=== PATIENT | male | born 1965 | race Caucasian/White ===

== ENCOUNTER → 2020-02-17 13:55 | Outpatient (BNVA) | payer MEDICARE, SELFPAY | PROVIDERS: PCP Internal Medicine; Referring Provider Internal Medicine; Visit Provider Internal Medicine Cardiovascular Disease | DX: I25.10 Atherosclerotic heart disease of native coronary artery without angina pectoris (principal); I10 Essential (primary) hypertension; E11.9 Type 2 diabetes mellitus without complications; Z79.899 Other long term (current) drug therapy | CPT/HCPCS: Q3014 ==

== ENCOUNTER 2020-03-01 15:53 | Outpatient (REF) | payer MEDICARE, OTHER, SELFPAY ==
--- NOTE | 2020-03-01 16:01 | XR_ITS ---
EXAMINATION: XR CHEST CLINICAL INFORMATION: Shortness of breath COMPARISON: Chest radiographs 08/30/2019, 01/08/2019 TECHNIQUE: The chest is imaged in 2 frontal views and a lateral view for a total of 3 views. FINDINGS: There is no airspace consolidation or definite groundglass opacity. The costophrenic sulci are clear. The heart is normal in size. The vascularity is normal. There is no pneumothorax or pleural reaction. The hilar and mediastinal contours and bony structures are stable. XR/XR chest 2V IMPRESSION: Unremarkable examination.
== END 2020-03-01 15:54 | disposition home or self-care (01) ==
LOC: HO.HMGCX 15:53
PROVIDERS: PCP Internal Medicine; Visit Provider Nurse Practitioner Family
DX: R06.02 Shortness of breath (principal)
CPT/HCPCS: 71046

== ENCOUNTER 2020-03-02 13:45 | Outpatient (REF) | payer MEDICARE, OTHER, SELFPAY ==
[2020-03-02 16:25] LABS: MANUAL DIFF FLAG NO
[2020-03-02 16:29] LABS: Basophils Absolute Auto 0.1 X10*3/uL (0.0-0.2); Eosinophils Absolute Auto 0.2 X10*3/uL (0.0-0.4); Eosinophils Percent Auto 2.1 % (0-4); Hematocrit 47.9 % (42-52); Hemoglobin 16.7 g/dl (14.0-18.0); Imm Gran Abs Auto 0.04 X10*3/uL (0.00-0.03); Imm Gran Pct Auto 0.5 % (0.0-0.4); Lymphocytes Absolute Auto 1.6 X10*3/uL (1.2-4.9); Lymphocytes Percent Auto 18.5 % (20-40); Mean Corpuscular HGB Conc 34.9 g/dl (31.0-36.0); Mean Corpuscular Hemoglobin 35.8 pg (27.0-33.0); Mean Corpuscular Volume 102.6 fL (80-98); Monocytes Absolute Auto 0.8 X10*3/uL (0.1-1.2); Monocytes Percent Auto 8.7 % (2-11); Neutrophils Percent Auto 69.2 % (45-73); Platelet Count 141 X10*3/uL (160-400); Red Blood Count 4.67 X10*6/uL (4.60-5.80); Red Cell Distribution Width 13.5 % (11.0-16.0); White Blood Count 8.7 X10*3/uL (4.8-10.8)
[2020-03-02 17:11] LABS: Alanine Aminotransferase 42 U/L (0-40); Albumin Level 4.3 g/dL (3.5-5.0); Alkaline Phosphatase 94 U/L (39-117); Anion Gap 18 (12-20); Aspartate Amino Transferase 36 U/L (5-37); Bilirubin Total 0.7 mg/dL (0.0-1.0); Blood Urea Nitrogen 15 mg/dL (9-16); Calcium 8.9 mg/dL (8.4-10.2); Carbon Dioxide 30 mmol/L (22-29); Chloride 90 mmol/L (96-108); Estimated Glomerular Filt Rate > 60; Glucose Random 494 mg/dL (60-115); Potassium 3.8 mmol/l (3.3-5.1); Sodium 134 mmol/L (135-145); Total Protein 7.6 g/dL (6.5-8.0)
== END 2020-03-02 13:46 | disposition home or self-care (01) ==
LOC: HO.HMGCLDS 13:45
PROVIDERS: PCP Nurse Practitioner Family; Visit Provider Nurse Practitioner Family
DX: R06.02 Shortness of breath (principal)
CPT/HCPCS: 36415; 80053; 85025

== ENCOUNTER 2020-03-09 13:16 | Outpatient (REF) | payer MEDICARE, SELFPAY ==
[2020-03-09 13:46] LABS: MANUAL DIFF FLAG NO
[2020-03-09 13:55] LABS: Basophils Absolute Auto 0.1 X10*3/uL (0.0-0.2); Basophils Percent Auto 0.9 % (0-2); Eosinophils Absolute Auto 0.2 X10*3/uL (0.0-0.4); Eosinophils Percent Auto 3.3 % (0-4); Hematocrit 46.7 % (42-52); Hemoglobin 16.1 g/dl (14.0-18.0); Imm Gran Abs Auto 0.02 X10*3/uL (0.00-0.03); Imm Gran Pct Auto 0.3 % (0.0-0.4); Lymphocytes Absolute Auto 1.5 X10*3/uL (1.2-4.9); Lymphocytes Percent Auto 25.6 % (20-40); Mean Corpuscular HGB Conc 34.5 g/dl (31.0-36.0); Mean Corpuscular Hemoglobin 35.2 pg (27.0-33.0); Mean Platelet Volume 9.9 fL (9.4-12.4); Monocytes Absolute Auto 0.6 X10*3/uL (0.1-1.2); Monocytes Percent Auto 10.6 % (2-11); Neutrophils Absolute Auto 3.5 X10*3/uL (2.0-8.3); Neutrophils Percent Auto 59.3 % (45-73); Platelet Count 128 X10*3/uL (160-400); Red Blood Count 4.58 X10*6/uL (4.60-5.80); Red Cell Distribution Width 13.4 % (11.0-16.0); White Blood Count 5.8 X10*3/uL (4.8-10.8)
[2020-03-09 14:40] LABS: Alanine Aminotransferase 37 U/L (0-40); Alkaline Phosphatase 81 U/L (39-117); Anion Gap 17 (12-20); Aspartate Amino Transferase 32 U/L (5-37); Bilirubin Total 0.8 mg/dL (0.0-1.0); Blood Urea Nitrogen 11 mg/dL (9-16); Calcium 8.6 mg/dL (8.4-10.2); Carbon Dioxide 29 mmol/L (22-29); Chloride 92 mmol/L (96-108); Estimated Glomerular Filt Rate > 60; Potassium 3.9 mmol/l (3.3-5.1); Sodium 134 mmol/L (135-145)
[2020-03-09 14:41] LABS: Total Protein 6.9 g/dL (6.5-8.0)
[2020-03-09 14:43] LABS: Glucose Random 373 mg/dL (60-115)
== END 2020-03-09 13:17 | disposition home or self-care (01) ==
LOC: HO.HMGCLDS 13:16
PROVIDERS: PCP Internal Medicine; Visit Provider Nurse Practitioner Family
DX: D69.6 Thrombocytopenia, unspecified (principal)
CPT/HCPCS: 36415; 80053; 85025

== ENCOUNTER 2020-03-18 14:36 | Emergency (ER) | payer MEDICARE, SELFPAY ==
--- NOTE | 2020-03-18 14:53 | ED.GENADULT ---
HPI - General Adult General Chief complaint: General Medical Stated complaint: covid testing Time Seen by Provider: 03/18/20 14:53 Source: patient Mode of arrival: ambulatory Limitations: no limitations History of Present Illness HPI narrative: 54-year-old male with below) physical history presenting seeking COVID-19 test. States he is asymptomatic has been exposed to daughter who tested positive. States because his comorbidities would like a COVID test again denies any other symptoms. Onset (ago): day(s) (2 days ago ) Treatments prior to arrival: none Related Data Home Medications Medication Instructions Recorded Confirmed atorvastatin 40 mg tablet 40 mg PO DAILY 02/17/20 02/17/20 carbamazepine 200 mg tablet 200 mg PO BID 02/17/20 02/17/20 furosemide 40 mg tablet 40 mg PO DAILY 02/17/20 02/17/20 oxycodone 5 mg tablet mg PO 02/17/20 02/17/20 pregabalin 300 mg capsule 300 mg PO BID 02/17/20 02/17/20 insulin glargine 100 unit/mL (3 24 unit SUBCUT QPM ml 03/02/20 mL) subcutaneous pen tizanidine 4 mg tablet 4 mg PO TID PRN 03/06/20 Previous Rx's Medication Instructions Recorded blood sugar diagnostic #10 ea 01/10/20 blood-glucose meter #1 ea 01/10/20 lancets #100 ea 01/10/20 lancets 30 gauge #100 ea 01/12/20 lisinopril 5 mg tablet 5 mg PO DAILY 90 Days #90 tab 01/26/20 albuterol sulfate 2.5 mg INHALATION Q6H PRN 30 Days 02/14/20 #180 ml azithromycin 250 mg tablet See Rx Instructions PO DAILY 5 02/14/20 Days #6 tab metoprolol succinate 25 mg 25 mg PO DAILY #30 tab 03/01/20 tablet,extended release 24 hr tizanidine 4 mg tablet 4 mg PO TID PRN 30 Days #90 tab 03/06/20 Allergies Allergy/AdvReac Type Severity Reaction Status Date / Time cyclobenzaprine Allergy Unknown RASH Verified 03/18/20 14:57 [From FLEXERIL] penicillin V Allergy Unknown anaphylaxis Verified 03/18/20 14:57 Review of Systems Review of Systems: Constitutional: No Weight loss, No Fever, No Chills, No Night Sweats, No Fatigue, No Malaise ENT/Mouth: No Hearing loss, No Ear Pain, No Nasal Congestion, No Sinus Pain, No Hoarseness, No sore throat, No Rhinorrhea, No Swallowing Difficulty Eyes: No Eye Pain, No Swelling, No Redness, No Foreign Body, No Discharge, No Vision Changes Cardiovascular: No Chest Pain, No SOB, No Dyspnea on Exertion, No Orthopnea, No Edema, No Palpitations Respiratory: No Cough, No Sputum, No Wheezing, No Smoke Exposure, No Dyspnea Gastrointestinal: No Nausea, No Vomiting, No Diarrhea, No Constipation, No abdominal Pain Genitourinary: No Dysuria, No Urinary Frequency, No Hematuria, No Urinary Incontinence, No Urgency, No Flank Pain, No Urinary Flow Changes Musculoskeletal: No joint pain, No Myalgias, No Joint Swelling Skin: No Skin Lesions, No rash Neuro: No Weakness, No Numbness, No Paresthesias, No Loss of Consciousness, No Dizziness, No Headache Psych: No Social Issues Heme/Lymph: No Bruising, No Bleeding,No Lymphadenopathy Endocrine: No Polyuria, No Polydipsia, No Temperature Intolerance Yes all other systems are reviewed and are negative [facility] Past Medical History Medical History CAD (coronary artery disease) HTN (hypertension) Shortness of breath Uncontrolled diabetes mellitus Surgical History History of back surgery Hx of cardiac cath Hx of hernia repair Family History Family History Father CVD (cardiovascular disease) Cancer Mother No problems noted. Social History Social History Smoking Status: Current every day smoker Advance Directives: No Advance Directives Information Provided: No Physical Exam Vital Signs: Vital Signs: Last Vital Signs Temp 98.9 F 03/18/20 14:56 Pulse 100 03/18/20 14:56 Resp 16 03/18/20 14:56 BP 135/88 03/18/20 14:56 Pulse Ox 94 03/18/20 14:56 Body Mass Index 38.2 Reviewed Const: General: cooperative and healthy appearing; No acute distress or intoxicated appearing Nutritional Appearance: average body habitus Orientation/consciousness: patient oriented x3 HENMT: Head: Yes normal to inspection Ears: hearing grossly normal bilaterally Eyes: General: appearance normal, both eyes and all related structures Visual Hendrickson: normal visual hendrickson by confrontation Neck: Neck: Yes normal visual inspection and No tender Thyroid: Thyroid normal Chest: Chest palpation & inspection: normal inspection of the chest Resp: Effort & Inspection: normal respiratory effort Auscultation: clear to auscultation bilaterally Cardio: Jugular venous distension: no JVD Rhythm: regular rhythm Heart sounds: S1 normal heart sound present and S2 normal heart sound present : General: Yes no CVA tenderness Back/Spine/Pelvis: Back: no CVA tenderness Skin: General skin exam: no rashes or lesions noted Neuro: General: patient oriented x3 Extrem: General: Yes normal to inspection Discharge Plan Discharge Clinical Impression: Encounter for laboratory testing for COVID-19 virus Patient Disposition: Home, Self-Care Instructions: Normal Exam (ED) Additional Instructions: Follow CDC/state guidelines as provided Your COVID test was done today May take 2-3 days to result Return if any concerns or worsening symptoms Thank you Prescriptions: No Action (DME) OneTouch Ultra Blue Test Strip Strip See Rx Instructions .ROUTE .MEDSUPPLY Qty: 10 RF: 0 (DME) blood-glucose meter [OneTouch Ultra2 Meter] Misc See Rx Instructions .ROUTE .MEDSUPPLY Qty: 1 RF: 0 (DME) lancets [OneTouch UltraSoft Lancets] Misc See Rx Instructions .ROUTE .MEDSUPPLY Qty: 100 RF: 0 (DME) lancets [OneTouch Delica Lancets] 30 gauge misc See Rx Instructions .ROUTE .MEDSUPPLY Qty: 100 RF: 0 lisinopril 5 mg tablet 5 mg PO DAILY 90 Days Qty: 90 RF: 1 albuterol sulfate 2.5 mg /3 mL (0.083 %) solution for nebulization 2.5 mg inhalation Q6H PRN (Reason: shortness of breath or wheezing) 30 Days Qty: 180 RF: 3 azithromycin 250 mg tablet See Rx Instructions PO DAILY 5 Days Qty: 6 RF: 0 metoprolol succinate 25 mg tablet extended release 24 hr 25 mg PO DAILY Qty: 30 RF: 5 Lantus Solostar U-100 Insulin 100 unit/mL (3 mL) insulin pen 24 unit subcut QPM RF: 0 tizanidine 4 mg tablet 4 mg PO TID PRNRF: 0 tizanidine 4 mg tablet 4 mg PO TID PRN (Reason: muscle spasticity) 30 Days Qty: 90 RF: 0 oxycodone 5 mg tablet PO RF: 0 carbamazepine 200 mg tablet 200 mg PO BID RF: 0 pregabalin 300 mg capsule 300 mg PO BID RF: 0 furosemide 40 mg tablet 40 mg PO DAILY RF: 0 atorvastatin 40 mg tablet 40 mg PO DAILY RF: 0 Referrals: Lauri Gonzalez, [employer] [Primary Care Provider] - 1 week
[2020-03-18 14:56] VITALS: BP 135/88; PULSE 100; RESP 16; TEMP 37.2; O2SAT 94; BMI 38.2
== END 2020-03-18 15:05 | disposition home or self-care (01) ==
PROVIDERS: Nurse Practitioner Primary Care; Emergency Provider Emergency Medicine; PCP Nurse Practitioner Family
DX: Z20.828 Contact with and (suspected) exposure to other viral communicable diseases (principal); I10 Essential (primary) hypertension; E11.9 Type 2 diabetes mellitus without complications
CPT/HCPCS: 99283; U0003

== ENCOUNTER 2020-04-03 16:42 | Outpatient (REF) | payer MEDICARE, SELFPAY ==
--- NOTE | 2020-04-03 16:45 | XR_ITS ---
EXAMINATION: XR CHEST CLINICAL INFORMATION: R06.02 - Shortness of breath COMPARISON: Chest radiographs 03/01/2020, 08/30/2019 TECHNIQUE: 2 views of the chest were obtained. FINDINGS: The lungs are clear. There is no airspace consolidation or groundglass opacity. The costophrenic sulci are clear. The vascularity is normal. The heart is normal in size. The costophrenic sulci are clear. Smooth extrapleural areolar tissue lower left lateral chest is stable. The hilar and mediastinal contours and bony structures are similar to prior studies. XR/XR chest 2V IMPRESSION: Unremarkable examination.
== END 2020-04-03 16:43 | disposition home or self-care (01) ==
LOC: HO.HMGCX 16:42
PROVIDERS: Visit Provider Nurse Practitioner Family
DX: R06.02 Shortness of breath (principal)
CPT/HCPCS: 71046

== ENCOUNTER 2020-04-05 11:09 | Outpatient (REF) | payer MEDICARE, SELFPAY | END 2020-04-05 11:10 | disposition home or self-care (01) | LOC: HO.LAB 11:09 | PROVIDERS: Visit Provider Nurse Practitioner Family | DX: Z20.822 Contact with and (suspected) exposure to COVID-19 (principal); J18.9 Pneumonia, unspecified organism; D69.6 Thrombocytopenia, unspecified | CPT/HCPCS: 36415; U0003 ==

== ENCOUNTER 2020-06-26 09:20 | Outpatient (REF) | payer MEDICARE, SELFPAY ==
--- NOTE | ~2020-06-26 | XR_ITS ---
EXAMINATION: XR CHEST CLINICAL INFORMATION: Cough COMPARISON: Previous chest x-ray 04/03/2020 TECHNIQUE: 2 views of the chest were obtained. FINDINGS: The cardiac and mediastinal contours are stable. The lungs are clear. There is no pleural effusion or pneumothorax. There are degenerative changes of the spine. XR/XR chest 2V IMPRESSION: No evidence for acute disease in the chest.
== END 2020-06-26 09:21 | disposition home or self-care (01) ==
LOC: HO.HMGCX 09:20
PROVIDERS: PCP Nurse Practitioner Family; Visit Provider Hospitalist
DX: R05 Cough (principal)
CPT/HCPCS: 71046

== ENCOUNTER 2020-07-10 15:17 | Outpatient (REF) | payer MEDICARE, SELFPAY ==
--- NOTE | ~2020-07-10 | XR_ITS ---
EXAMINATION: RIGHT ANKLE AND FOOT PAIN CLINICAL INFORMATION: Trauma COMPARISON: None TECHNIQUE: 3 views of the right foot and 2 views of the right ankle FINDINGS: There is a displaced, angulated, and comminuted fracture involving the distal third of the right second metatarsal with lateral displacement of distal fracture fragment and displacement of approximately 6 mm. There is also noted to be a nondisplaced fracture involving the base of the third proximal phalanx which appears to be intra-articular.. There is associated soft tissue swelling. No radiopaque foreign bodies. Views of the right ankle do not demonstrate evidence of acute fracture or dislocation. Soft tissue swelling is seen about the ankle and foot. Ankle mortise intact. No medial joint space widening. XR/XR ankle RT min 3V IMPRESSION: Displaced, angulated, and comminuted fractures of the second metatarsal. Nondisplaced fracture involving the base of the third proximal phalanx which appears to be intra-articular. Soft tissue swelling without acute fracture of the right ankle.
--- NOTE | ~2020-07-10 | XR_ITS ---
EXAMINATION: RIGHT ANKLE AND FOOT PAIN CLINICAL INFORMATION: Trauma COMPARISON: None TECHNIQUE: 3 views of the right foot and 2 views of the right ankle FINDINGS: There is a displaced, angulated, and comminuted fracture involving the distal third of the right second metatarsal with lateral displacement of distal fracture fragment and displacement of approximately 6 mm. There is also noted to be a nondisplaced fracture involving the base of the third proximal phalanx which appears to be intra-articular.. There is associated soft tissue swelling. No radiopaque foreign bodies. Views of the right ankle do not demonstrate evidence of acute fracture or dislocation. Soft tissue swelling is seen about the ankle and foot. Ankle mortise intact. No medial joint space widening. XR/XR foot RT min 3V IMPRESSION: Displaced, angulated, and comminuted fractures of the second metatarsal. Nondisplaced fracture involving the base of the third proximal phalanx which appears to be intra-articular. Soft tissue swelling without acute fracture of the right ankle.
== END 2020-07-10 15:18 | disposition home or self-care (01) ==
LOC: HO.HMGCX 15:17
PROVIDERS: PCP Nurse Practitioner Family; Visit Provider Hospitalist
DX: M25.571 Pain in right ankle and joints of right foot (principal)
CPT/HCPCS: 73610; 73630

== ENCOUNTER 2020-07-25 08:12 | Outpatient (REF) | payer MEDICARE, SELFPAY ==
--- NOTE | ~2020-07-25 | XR_ITS ---
EXAMINATION: XR FOOT, RIGHT CLINICAL INFORMATION: Fracture COMPARISON: Right foot x-rays July 10, 2020 TECHNIQUE: AP, lateral, and oblique views of the right foot. FINDINGS: Similar appearance of displaced comminuted fracture of the distal aspect of the second metatarsal. There is no evidence of callus formation. Similar appearance of nondisplaced fracture involving the base of the proximal third phalanx. No evidence of callus formation. XR/XR foot RT min 3V IMPRESSION: Stable appearance of fractures involving the second metatarsal and proximal third phalanx. No significant interval callus formation appreciated.
== END 2020-07-25 08:13 | disposition home or self-care (01) ==
LOC: HO.HOSX 08:12
PROVIDERS: Visit Provider Physician Assistant
DX: S92.321A Displaced fracture of second metatarsal bone, right foot, initial encounter for closed fracture (principal); E11.40 Type 2 diabetes mellitus with diabetic neuropathy, unspecified; F17.210 Nicotine dependence, cigarettes, uncomplicated; X58.XXXA Exposure to other specified factors, initial encounter; Y93.9 Activity, unspecified; Y92.9 Unspecified place or not applicable; Y99.9 Unspecified external cause status
CPT/HCPCS: 73630; 99202

== ENCOUNTER 2020-08-04 15:34 | Outpatient (REF) | payer MEDICARE, SELFPAY ==
--- NOTE | ~2020-08-04 | XR_ITS ---
EXAMINATION: XR CHEST CLINICAL INFORMATION: Shortness of breath COMPARISON: None TECHNIQUE: 2 views of the chest were obtained. FINDINGS: The lungs are hyperinflated but clear. The heart size and pulmonary vascularity is normal. No gross bony abnormality. XR/XR chest 2V IMPRESSION: Hyperinflated lungs without acute process.
== END 2020-08-04 15:35 | disposition home or self-care (01) ==
LOC: HO.HMGCX 15:34
PROVIDERS: PCP Nurse Practitioner Family; Visit Provider Nurse Practitioner Family
DX: R06.02 Shortness of breath (principal)
CPT/HCPCS: 71046

== ENCOUNTER → 2020-08-14 09:49 | Outpatient (BNVA) | payer MEDICARE, SELFPAY | PROVIDERS: Visit Provider Physician Assistant ==

== ENCOUNTER 2020-08-29 07:36 | Outpatient (REF) | payer MEDICARE, SELFPAY | END 2020-08-29 07:37 | disposition home or self-care (01) | LOC: HO.HOSX 07:36 | PROVIDERS: Visit Provider Physician Assistant | DX: Z13.89 Encounter for screening for other disorder (principal) ==

== ENCOUNTER 2020-09-04 08:00 | Outpatient (REF) | payer MEDICARE, SELFPAY ==
--- NOTE | ~2020-09-04 | XR_ITS ---
EXAMINATION: XR FOOT, RIGHT CLINICAL INFORMATION: Third metatarsal. Follow-up. COMPARISON: Radiographs right foot 07/25/2020, 07/10/2020 TECHNIQUE: AP, lateral, and oblique views of the right foot. FINDINGS: There is comminuted fracture neck 2nd metatarsal with lateral displacement distal fragment. Alignment is similar to prior exam. There is interval callus formation present. Fracture base third toe proximal phalanx is faintly visible. No significant callus formation. Remainder of the bony structures show no acute fracture or destructive process. Cortical cyst again suggested dorsal medial distal phalangeal tuft great toe. XR/XR foot RT min 3V IMPRESSION: Interval callus formation displaced fracture neck second metatarsal. No significant change in alignment. Stable fracture base third toe proximal phalanx.
== END 2020-09-04 08:01 | disposition home or self-care (01) ==
LOC: HO.HOSX 08:00
PROVIDERS: Visit Provider Physician Assistant
DX: S92.121A Displaced fracture of body of right talus, initial encounter for closed fracture (principal); S92.331A Displaced fracture of third metatarsal bone, right foot, initial encounter for closed fracture; S92.301A Fracture of unspecified metatarsal bone(s), right foot, initial encounter for closed fracture; E11.40 Type 2 diabetes mellitus with diabetic neuropathy, unspecified
CPT/HCPCS: 73630; 99212

== ENCOUNTER 2020-11-22 08:55 | Outpatient (REF) | payer MEDICARE, SELFPAY ==
[2020-11-22 11:34] LABS: Glucose Urine UA NEG (NEG); Leukocyte Esterase Urine NEG (NEG); Nitrite Urine NEG (NEG); Urine Blood NEG (NEG); Urine Ketones NEG (NEG); Urine Protein NEG (NEG-TRACE)
[2020-11-22 11:44] LABS: Appearance Urine CLEAR; Color Urine YELLOW
[2020-11-22 11:59] LABS: Alanine Aminotransferase 40 U/L (0-40); Alkaline Phosphatase 87 U/L (39-117); Anion Gap 13 (12-20); Aspartate Amino Transferase 38 U/L (5-37); Blood Urea Nitrogen 7 mg/dL (9-16); Calcium 8.7 mg/dL (8.4-10.2); Carbon Dioxide 31 mmol/L (22-29); Chloride 101 mmol/L (96-108); Cholesterol 127 mg/dL; Estimated Glomerular Filt Rate > 60; Glucose Fasting 145 mg/dL (60-99); HDL Cholesterol 38 mg/dL; LDL Cholesterol Calculated 38 mg/dl; Potassium 3.3 mmol/L (3.3-5.1); Sodium 142 mmol/L (135-145); Total Protein 6.9 g/dL (6.5-8.0); Triglycerides 255 mg/dL
[2020-11-22 12:00] LABS: Estimated Average Glucose 137 mg/dL; Hemoglobin A1c % 6.4 %
[2020-11-22 12:23] LABS: TSH reflex Free T4 2.49 uIU/mL (0.32-4.0)
[2020-11-22 12:26] LABS: Creatinine Urine 136.89 mg/dL; Microalbum/Creatinine Ratio Ur 28.4 ug/mg cr
== END 2020-11-22 08:56 | disposition home or self-care (01) ==
LOC: HO.HMGCLDS 08:55
PROVIDERS: PCP Nurse Practitioner Family; Visit Provider Nurse Practitioner Family
DX: E11.65 Type 2 diabetes mellitus with hyperglycemia (principal); G47.30 Sleep apnea, unspecified
CPT/HCPCS: 36415; 80053; 80061; 81003; 82043; 83036; 84443

== ENCOUNTER 2021-01-07 00:37 | Emergency (ER) | payer MEDICARE, SELFPAY ==
--- NOTE | ~2021-01-07 | CT_ITS ---
EXAMINATION: CT HEAD WITHOUT CONTRAST CLINICAL INFORMATION: Multiple falls. COMPARISON: None. TECHNIQUE: Contiguous axial imaging was performed from the skull base to vertex without intravenous contrast. This CT examination was performed using dose optimization techniques as appropriate, variously including the following: * Automated exposure control * Adjustment of mA and/or kV according to patient size (this includes techniques or standardized protocols for targeted exams where dose is matched to indication/reason for exam; i.e. extremities or head) Use of iterative reconstruction technique DLP: 748 mGy-cm. FINDINGS: There is no evidence of acute intracranial hemorrhage or territorial infarction. No abnormal mass effect or midline shift is seen. Corbett to white matter differentiation is well preserved. No extra-axial fluid collections are identified. No hydrocephalus. No significant volume loss. There is no abnormal attenuation within the brain parenchyma. Chronic appearing depression of the left lamina papyracea. No acute osseous or soft tissue abnormality. The mastoid air cells and visualized portions of the paranasal sinuses are well aerated. CT/CT head/brain wo con IMPRESSION: No acute intracranial pathology.
[2021-01-07 00:59] VITALS: BP 134/88; PULSE 18; RESP 16; TEMP 36.9; O2SAT 94; BMI 35.3
--- NOTE | 2021-01-07 01:48 | ECG_ITS ---
Test Reason : WEAKNESS Blood Pressure : / mmHG Vent. Rate : 093 BPM Atrial Rate : 093 BPM P-R Int : 190 ms QRS Dur : 106 ms QT Int : 374 ms P-R-T Axes : 061 075 050 degrees QTc Int : 465 ms Normal sinus rhythm Normal ECG When compared with ECG of 30-AUG-2019 16:28, No significant change was found Referred By: Lucia Diego Electronically Signed By:TIESHA RAY MD
--- NOTE | 2021-01-07 02:06 | ED.GENADULT ---
HPI - General Adult General Chief complaint: Headache Stated complaint: falls multiple, headache Time Seen by Provider: 01/07/21 00:59 Source: patient Mode of arrival: ambulatory Limitations: no limitations History of Present Illness HPI narrative: Patient comes emergency room complaining of multiple falls. The reason that he is here today is because his forced him to come to the emergency room. Patient states that in May he started having headaches, then started noticing that his legs were giving out, started losing strength in both upper extremities occasionally, worse with the headaches. Patient states that he has had multiple falls and he has had multiple fractures including his facial bones and metatarsal bones. This afternoon, patient states he had drank 2 beers, denies having problems with alcohol abuse. Patient states that again he had the intense headache, it is always on the same spot in the right temporal area, then he fell at least 3 times today. Patient states that he does not lose consciousness, does not have any chest pain or shortness of breath when these episodes happen. Today patient had trouble getting up, the fall was witnessed by a neighbor who helps him to stand up. At this time, patient is asymptomatic, he does not have any headache, patient walked to his room. Related Data Home Medications Medication Instructions Recorded Confirmed carbamazepine 200 mg tablet 200 mg PO BID 02/17/20 11/13/20 oxycodone 5 mg tablet mg PO BEDTIME 02/17/20 11/13/20 pregabalin 300 mg capsule 300 mg PO BID 02/17/20 11/13/20 Previous Rx's Medication Instructions Recorded blood sugar diagnostic (OneTouch #10 ea 01/10/20 Ultra Blue Test Strip) blood-glucose meter (OneTouch #1 ea 01/10/20 Ultra2 Meter) lancets (OneTouch UltraSoft #100 ea 01/10/20 Lancets) albuterol sulfate 2.5 mg INHALATION Q6H PRN 30 Days 02/14/20 #180 ml atorvastatin 40 mg tablet 40 mg PO DAILY #90 tab 05/26/20 lancets 30 gauge (OneTouch Delica 30 gauge MISCELLANEOUS BID 30 Days 06/05/20 Plus Lancet) #100 ea albuterol sulfate 90 mcg/actuation 1 inh INHALATION Q4-6H PRN #8.5 g 06/26/20 aerosol inhaler (Ventolin HFA) pen needle, diabetic 31 gauge x 1 ea SUBCUT DAILY 90 Days #100 ea 07/31/20/16 (BD Ultra-Fine Short Pen Needle) insulin glargine 100 unit/mL (3 30 unit SUBCUT QPM 90 Days #27 ml 11/13/20 mL) subcutaneous pen (Lantus Solostar U-100 Insulin) tizanidine 4 mg tablet 4 mg PO TID PRN 30 Days #60 tab 11/15/20 furosemide 40 mg tablet 40 mg PO DAILY #90 tab 11/19/20 lisinopril 5 mg tablet 5 mg PO DAILY 90 Days #90 tab 11/22/20 metoprolol succinate 25 mg 25 mg PO DAILY 90 Days #90 tab 11/22/20 tablet,extended release 24 hr omega-3 acid ethyl esters 1 gram 1 cap PO BID 90 Days #180 cap 11/22/20 capsule Allergies Allergy/AdvReac Type Severity Reaction Status Date / Time cyclobenzaprine Allergy Unknown RASH Verified 01/07/21 00:59 [From FLEXERIL] penicillin V Allergy Unknown anaphylaxis Verified 01/07/21 00:59 Review of Systems Review of Systems: Constitutional : No Weight loss, No Fever, No Chills, No Night Sweats, No Fatigue, No Malaise ENT/Mouth : No Hearing loss, No Ear Pain, No Nasal Congestion, No Sinus Pain, No Hoarseness, No sore throat, No Rhinorrhea, No Swallowing Difficulty Eyes: No Eye Pain, No Swelling, No Redness, No Foreign Body, No Discharge, No Vision Changes Cardiovascular : No Chest Pain, No SOB, No Dyspnea on Exertion, No Orthopnea, No Edema, No Palpitations Respiratory : No Cough, No Sputum, No Wheezing, No Smoke Exposure, No Dyspnea Gastrointestinal : No Nausea, No Vomiting, No Diarrhea, No Constipation, No abdominal Pain, No Hematochezia, No Melena Genitourinary : no irregular bleeding, No Dysuria, No Urinary Frequency, No Hematuria, No Urinary Incontinence, No Urgency, No Flank Pain, No Urinary Flow Changes, No Hesitancy Musculoskeletal : Complaining of multiple joint pains and effusions/ecchymosis due to multiple falls in the last few months No Myalgias, No Joint Swelling Skin : No Skin Lesions, has multiple ecchymoses Neuro : No Weakness, No Numbness, No Paresthesias, multiple episodes of loss of strength in upper extremities, falls, loss of strength in lower extremities Psych : No Anxiety/Panic, No Depression, No SI/HI/AH/VH, No Social Issues, Heme/Lymph: No Bruising, No Bleeding,No Lymphadenopathy Endocrine : No Polyuria, No Polydipsia, No Temperature Intolerance [facility] Past Medical History Medical History Asthma Bronchitis CAD (coronary artery disease) History of hepatitis C HTN (hypertension) Shortness of breath Uncontrolled diabetes mellitus Surgical History History of back surgery Hx of cardiac cath Hx of hernia repair Family History Family History Father CVD (cardiovascular disease) Cancer Mother No problems noted. Brother Liver cancer Sister Colon cancer Paternal Aunt Colon cancer Social History Social History (Updated 07/25/20 @ 08:40 by Rima Hooper) Housing: Apartment Alcohol intake: current Alcohol intake frequency: 0-2 drinks per day Patient Tobacco Use Status: Current everyday Tobacco user Cigarettes Per Day: 10 Advance Directives: No Advance Directives Information Provided: Yes Current occupational status: disabled Current occupation: right handed Physical Exam Vital Signs: Vital Signs: Last Vital Signs Temp 98.5 F 01/07/21 03:20 Pulse 94 01/07/21 03:20 Resp 16 01/07/21 03:20 BP 144/85 H 01/07/21 03:20 Pulse Ox 94 01/07/21 03:20 Body Mass Index 35.3 Const: Other: Appearance: Alert. Oriented X3. No acute distress. Eyes: Pupils equal, round and reactive to light. ENT: Pharynx normal. Neck: Normal inspection. Neck supple. No lymph nodes noted. No crepitus CVS: Normal heart rate and rhythm. Pulses normal. Normal S1 and S2 Respiratory: No respiratory distress. Breath sounds normal. No Wheezing. No rales Abdomen: Soft and nontender. No rigidity. No distention. good BS x4 Skin: Skin warm and dry. Normal skin color. Patient has multiple ecchymoses on all extremities and scalp Extremities: No lower extremity edema. No Lacerations. No Rash Neuro: Oriented X 3. No motor deficit. No sensory deficit. Moving all extermities. No slurred speech. Course Course Course Narrative: I was informed by the patient's nurse that the patient eloped. I did not have a chance to discuss the labs or imaging with the patient. Patient was supposed to get a repeat troponin which he did not wait for it. Patient's blood alcohol is elevated. I do not believe that all of patient's falls are related completely to the alcohol intoxication. Patient may have focal seizures since he has headache in 1 specific spot in his head and then falls to the ground however, I was unable to discuss this with the patient since he eloped Medical Decision Making Lab Data Result diagrams: 01/07/21 02:14 01/07/21 02:14 Labs: Lab Results 01/07/21 01/07/21 01/07/21 Range/Units 02:14 02:14 02:14 WBC 7.8 (4.8-10.8) X10*3/uL RBC 4.24 L (4.60-5.80) X10*6/uL Hgb 15.2 (14.0-18.0) g/dl Hct 42.7 (42-52) % MCV 100.7 H (80-98) fL MCH 35.8 H (27.0-33.0) pg MCHC 35.6 (31.0-36.0) g/dl RDW 13.0 (11.0-16.0) % Plt Count 121 L (160-400) X10*3/uL MPV 9.2 L (9.4-12.4) fL Immature Gran % (Auto) 0.1 (0.0-0.4) % Neut % (Auto) 59.7 (45-73) % Lymph % (Auto) 29.7 (20-40) % [place] % (Auto) 8.6 (2-11) % Eos % (Auto) 1.3 (0-4) % Baso % (Auto) 0.6 (0-2) % Lymph # (Auto) 2.3 (1.2-4.9) X10*3/uL [place] # (Auto) 0.7 (0.1-1.2) X10*3/uL Eos # (Auto) 0.1 (0.0-0.4) X10*3/uL Baso # (Auto) 0.1 (0.0-0.2) X10*3/uL Abs Immat Gran (auto) 0.01 (0.00-0.03) X10*3/uL Absolute Neuts (auto) 4.7 (2.0-8.3) X10*3/uL Absolute Nucleated RBC 0.000 (0.0-0.012) X10*3/uL Nucleated RBC % (auto) 0.0 (0.0-0.2) /100WBC PT 13.6 H (9.9-13.0) SEC INR 1.2 H (0.9-1.1) Sodium 137 (135-145) mmol/L Potassium 3.4 (3.3-5.1) mmol/L Chloride 97 (96-108) mmol/L Carbon Dioxide 27 (22-29) mmol/L Anion Gap 16 (12-20) BUN 19 H D (9-16) mg/dL Creatinine 0.77 (0.5-1.4) mg/dL Estim Creat Clear Calc 148.5 Estimated GFR > 60 Random Glucose 167 H D (60-115) mg/dL Calcium 8.6 (8.4-10.2) mg/dL Total Bilirubin 0.7 (0.0-1.0) mg/dL Direct Bilirubin 0.4 (0.0-0.5) mg/dL AST 188 H (5-37) U/L ALT 110 H (0-40) U/L Alkaline Phosphatase 108 D (39-117) U/L Total Creatine Kinase 322 H (38-174) U/L Troponin I High Sens (<3.5-35.0) ng/L B-Natriuretic Peptide (<100) pg/mL Total Protein 6.6 (6.5-8.0) g/dL Albumin 3.7 (3.5-5.0) g/dL Ethyl Alcohol mg/dL COVID-19 ([facility]) (Negative) COVID-19 Clin Com 01/07/21 01/07/21 01/07/21 Range/Units 02:14 02:14 02:59 WBC (4.8-10.8) X10*3/uL RBC (4.60-5.80) X10*6/uL Hgb (14.0-18.0) g/dl Hct (42-52) % MCV (80-98) fL MCH (27.0-33.0) pg MCHC (31.0-36.0) g/dl RDW (11.0-16.0) % Plt Count (160-400) X10*3/uL MPV (9.4-12.4) fL Immature Gran % (Auto) (0.0-0.4) % Neut % (Auto) (45-73) % Lymph % (Auto) (20-40) % [place] % (Auto) (2-11) % Eos % (Auto) (0-4) % Baso % (Auto) (0-2) % Lymph # (Auto) (1.2-4.9) X10*3/uL [place] # (Auto) (0.1-1.2) X10*3/uL Eos # (Auto) (0.0-0.4) X10*3/uL Baso # (Auto) (0.0-0.2) X10*3/uL Abs Immat Gran (auto) (0.00-0.03) X10*3/uL Absolute Neuts (auto) (2.0-8.3) X10*3/uL Absolute Nucleated RBC (0.0-0.012) X10*3/uL Nucleated RBC % (auto) (0.0-0.2) /100WBC PT (9.9-13.0) SEC INR (0.9-1.1) Sodium (135-145) mmol/L Potassium (3.3-5.1) mmol/L Chloride (96-108) mmol/L Carbon Dioxide (22-29) mmol/L Anion Gap (12-20) BUN (9-16) mg/dL Creatinine (0.5-1.4) mg/dL Estim Creat Clear Calc Estimated GFR Random Glucose (60-115) mg/dL Calcium (8.4-10.2) mg/dL Total Bilirubin (0.0-1.0) mg/dL Direct Bilirubin (0.0-0.5) mg/dL AST (5-37) U/L ALT (0-40) U/L Alkaline Phosphatase (39-117) U/L Total Creatine Kinase (38-174) U/L Troponin I High Sens 9.0 (<3.5-35.0) ng/L B-Natriuretic Peptide < 10 (<100) pg/mL Total Protein (6.5-8.0) g/dL Albumin (3.5-5.0) g/dL Ethyl Alcohol 172 mg/dL COVID-19 ([facility]) Negative (Negative) COVID-19 Clin Com See Note Imaging Data CT scan - head: Radiologist's impression: FINDINGS: There is no evidence of acute intracranial hemorrhage or territorial infarction. No abnormal mass effect or midline shift is seen. Corbett to white matter differentiation is well preserved. No extra-axial fluid collections are identified. No hydrocephalus. No significant volume loss. There is no abnormal attenuation within the brain parenchyma. Chronic appearing depression of the left lamina papyracea. No acute osseous or soft tissue abnormality. The mastoid air cells and visualized portions of the paranasal sinuses are well aerated. ? CT/CT head/brain wo con IMPRESSION: No acute intracranial pathology. ECG Data Attestation: I personally reviewed and interpreted this ECG as follows: (Normal sinus rhythm, rate 93, no ST segment depression or elevation, no T-wave inversion, QTC 465) Discharge Plan Discharge Clinical Impression: Multiple falls, Alcohol abuse Patient Disposition: Elopement Prescriptions: No Action (DME) OneTouch Ultra Blue Test Strip Strip See Rx Instructions .ROUTE .MEDSUPPLY Qty: 10 RF: 0 (DME) blood-glucose meter [OneTouch Ultra2 Meter] Mis See Rx Instructions .ROUTE .MEDSUPPLY Qty: 1 RF: 0 (DME) lancets [OneTouch UltraSoft Lancets] [facility] See Rx Instructions .ROUTE .MEDSUPPLY Qty: 100 RF: 0 albuterol sulfate 2.5 mg /3 mL (0.083 %) solution for nebulization 2.5 mg inhalation Q6H PRN (Reason: shortness of breath or wheezing) 30 Days Qty: 180 RF: 3 atorvastatin 40 mg tablet 40 mg PO DAILY Qty: 90 RF: 3 lancets [OneTouch Delica Plus Lancet] 30 gauge misc 30 gauge miscellaneous BID 30 Days Qty: 100 RF: 4 pen needle, diabetic [BD Ultra-Fine Short Pen Needle] 31 gauge x 5/16 needle 1 ea subcut DAILY 90 Days Qty: 100 RF: 6 tizanidine 4 mg tablet 4 mg PO TID PRN (Reason: Muscle Spasm) 30 Days Qty: 60 RF: 0 furosemide 40 mg tablet 40 mg PO DAILY Qty: 90 RF: 0 lisinopril 5 mg tablet 5 mg PO DAILY 90 Days Qty: 90 RF: 0 metoprolol succinate 25 mg tablet extended release 24 hr 25 mg PO DAILY 90 Days Qty: 90 RF: 0 omega-3 acid ethyl esters 1 gram capsule 1 cap PO BID 90 Days Qty: 180 RF: 0 albuterol sulfate [Ventolin HFA] 90 mcg/actuation HFA aerosol inhaler 1 inh inhalation Q4-6H PRN (Reason: shortness of breath or wheezing) Qty: 8.5 RF: 3 Lantus Solostar U-100 Insulin 100 unit/mL (3 mL) insulin pen 30 unit subcut QPM 90 Days Qty: 27 RF: 2 oxycodone 5 mg tablet PO BEDTIME RF: 0 carbamazepine 200 mg tablet 200 mg PO BID RF: 0 pregabalin 300 mg capsule 300 mg PO BID RF: 0
[2021-01-07 02:19] LABS: MANUAL DIFF FLAG NO
[2021-01-07 02:21] LABS: Basophils Absolute Auto 0.1 X10*3/uL (0.0-0.2); Basophils Percent Auto 0.6 % (0-2); Eosinophils Absolute Auto 0.1 X10*3/uL (0.0-0.4); Eosinophils Percent Auto 1.3 % (0-4); Hematocrit 42.7 % (42-52); Hemoglobin 15.2 g/dl (14.0-18.0); Imm Gran Abs Auto 0.01 X10*3/uL (0.00-0.03); Imm Gran Pct Auto 0.1 % (0.0-0.4); Lymphocytes Absolute Auto 2.3 X10*3/uL (1.2-4.9); Lymphocytes Percent Auto 29.7 % (20-40); Mean Corpuscular HGB Conc 35.6 g/dl (31.0-36.0); Mean Corpuscular Hemoglobin 35.8 pg (27.0-33.0); Mean Corpuscular Volume 100.7 fL (80-98); Mean Platelet Volume 9.2 fL (9.4-12.4); Monocytes Absolute Auto 0.7 X10*3/uL (0.1-1.2); Monocytes Percent Auto 8.6 % (2-11); Neutrophils Absolute Auto 4.7 X10*3/uL (2.0-8.3); Neutrophils Percent Auto 59.7 % (45-73); Platelet Count 121 X10*3/uL (160-400); Red Blood Count 4.24 X10*6/uL (4.60-5.80); White Blood Count 7.8 X10*3/uL (4.8-10.8)
[2021-01-07 02:37] LABS: Ethanol 172 mg/dL
[2021-01-07 02:39] LABS: INTERNATIONAL NORM RATIO 1.2 (0.9-1.1); Prothrombin Time 13.6 SEC (9.9-13.0)
[2021-01-07 02:41] LABS: Alanine Aminotransferase 110 U/L (0-40); Albumin Level 3.7 g/dL (3.5-5.0); Alkaline Phosphatase 108 U/L (39-117); Anion Gap 16 (12-20); Aspartate Amino Transferase 188 U/L (5-37); Bilirubin Direct 0.4 mg/dL (0.0-0.5); Bilirubin Total 0.7 mg/dL (0.0-1.0); Blood Urea Nitrogen 19 mg/dL (9-16); Calcium 8.6 mg/dL (8.4-10.2); Carbon Dioxide 27 mmol/L (22-29); Chloride 97 mmol/L (96-108); Creatinine Clr Calc Pharmacy 148.5; Estimated Glomerular Filt Rate > 60; Glucose Random 167 mg/dL (60-115); Potassium 3.4 mmol/L (3.3-5.1); Sodium 137 mmol/L (135-145); Total Protein 6.6 g/dL (6.5-8.0)
[2021-01-07 02:43] LABS: B Type Natriuretic Peptide < 10 pg/mL (<100)
[2021-01-07 03:20] VITALS: BP 144/85; PULSE 94; RESP 16; TEMP 36.9; O2SAT 94
[2021-01-07 03:26] LABS: COVID-19 Test Negative (Negative)
--- NOTE | 2021-01-07 04:08 | PC.NURSE ---
Pt presented to nurses' station to inquire how much longer he will need to wait until he vascular neurologist go home. This RN informs pt that he is requiring a repeat troponin at 515am. This RN provided information to patient reqarding repeat troponin and its purpose. Pt asks is this something I can go to my doctor's office for? This RN explains the need for obtaining this repeat lab within ED. Pt expresses frustration but is agreeable to plan. Pt ambulates with steady gait back to his room.
--- NOTE | 2021-01-07 05:17 | PC.NURSE ---
This RN to bedside to obtain repeat troponin. Pt, his belongings, and his are absent from room. Provider made aware that pt eloped.
== END 2021-01-07 05:45 | disposition left against medical advice (07) ==
PROVIDERS: Emergency Provider Emergency Medicine; PCP Nurse Practitioner Family
DX: F10.10 Alcohol abuse, uncomplicated (principal); Y90.6 Blood alcohol level of 120-199 mg/100 ml; R51.9 Headache, unspecified; I10 Essential (primary) hypertension; E11.9 Type 2 diabetes mellitus without complications; I25.10 Atherosclerotic heart disease of native coronary artery without angina pectoris; J45.909 Unspecified asthma, uncomplicated; Z79.4 Long term (current) use of insulin; Z79.899 Other long term (current) drug therapy; Z91.81 History of falling; Z20.822 Contact with and (suspected) exposure to COVID-19
CPT/HCPCS: 36415; 70450; 80048; 80076; 82077; 82550; 83880; 84484; 85025; 85610; 87635; 93005; 99284

== ENCOUNTER 2021-02-02 09:42 | Outpatient (REF) | payer MEDICARE, OTHER, SELFPAY ==
--- NOTE | ~2021-02-02 | XR_ITS ---
EXAMINATION: XR HIP, RIGHT CLINICAL INFORMATION: Contusion of the hip COMPARISON: CT 01/06/2018 TECHNIQUE: Two views of the right hip. FINDINGS: No fracture or dislocation. The femoral head articulates appropriately with its acetabulum. The joint space is maintained. The visualized right pelvis is intact. Phleboliths in the pelvis. XR/XR hip RT min 2V IMPRESSION: No acute abnormality.
== END 2021-02-02 09:43 | disposition home or self-care (01) ==
LOC: HO.HMGCX 09:42
PROVIDERS: PCP Nurse Practitioner Family; Visit Provider Internal Medicine
DX: S70.01XA Contusion of right hip, initial encounter (principal)
CPT/HCPCS: 73502

== ENCOUNTER 2021-02-14 13:07 | Outpatient (REF) | payer MEDICARE, SELFPAY | END 2021-02-14 13:08 | disposition home or self-care (01) | LOC: HO.LAB 13:07 | PROVIDERS: Visit Provider Internal Medicine | DX: Z20.822 Contact with and (suspected) exposure to COVID-19 (principal) | CPT/HCPCS: C9803; U0003; U0005 ==

== ENCOUNTER → 2021-12-26 13:44 | Outpatient (BNVA) | payer OTHER, SELFPAY | PROVIDERS: PCP Nurse Practitioner Family; Referring Provider Nurse Practitioner Family; Visit Provider Nurse Practitioner Family | DX: I25.10 Atherosclerotic heart disease of native coronary artery without angina pectoris (principal); E11.65 Type 2 diabetes mellitus with hyperglycemia; I10 Essential (primary) hypertension; E66.9 Obesity, unspecified; S82.201D Unspecified fracture of shaft of right tibia, subsequent encounter for closed fracture with routine healing; S82.401D Unspecified fracture of shaft of right fibula, subsequent encounter for closed fracture with routine healing; Z68.35 Body mass index [BMI] 35.0-35.9, adult | CPT/HCPCS: 93005 ==

== ENCOUNTER 2021-12-28 12:37 | Outpatient (RCR) | payer OTHER, SELFPAY | END 2022-02-06 13:34 | disposition home or self-care (01) | LOC: HO.WCC 12:37 | PROVIDERS: PCP Nurse Practitioner Family; Visit Provider Physician Assistant | DX: E11.621 Type 2 diabetes mellitus with foot ulcer (principal); L97.529 Non-pressure chronic ulcer of other part of left foot with unspecified severity; L84 Corns and callosities; R60.0 Localized edema; F17.210 Nicotine dependence, cigarettes, uncomplicated; I25.10 Atherosclerotic heart disease of native coronary artery without angina pectoris; I10 Essential (primary) hypertension; I25.2 Old myocardial infarction; Z86.19 Personal history of other infectious and parasitic diseases | CPT/HCPCS: 97597; 99212 ==

== ENCOUNTER 2021-12-31 09:28 | Outpatient (REF) | payer OTHER, SELFPAY ==
[2021-12-31 11:16] LABS: MANUAL DIFF FLAG NO
[2021-12-31 11:30] LABS: Basophils Absolute Auto 0.2 X10*3/uL (0.0-0.2); Basophils Percent Auto 1.6 % (0-2); Eosinophils Absolute Auto 0.3 X10*3/uL (0.0-0.4); Eosinophils Percent Auto 3.1 % (0-4); Hematocrit 38.4 % (42.0-52.0); Hemoglobin 12.5 g/dl (14.0-18.0); Imm Gran Abs Auto 0.04 X10*3/uL (0.00-0.03); Imm Gran Pct Auto 0.4 % (0.0-0.4); Lymphocytes Absolute Auto 1.2 X10*3/uL (1.2-4.9); Lymphocytes Percent Auto 12.4 % (20-40); Mean Corpuscular HGB Conc 32.6 g/dl (31.0-36.0); Mean Corpuscular Hemoglobin 36.3 pg (27.0-33.0); Mean Corpuscular Volume 111.6 fL (80.0-98.0); Mean Platelet Volume 11.2 fL (9.4-12.4); Monocytes Absolute Auto 1.1 X10*3/uL (0.1-1.2); Monocytes Percent Auto 11.6 % (2-11); Neutrophils Absolute Auto 6.7 x10*3/uL (2.0-8.3); Neutrophils Percent Auto 70.9 % (45-73); Platelet Count 142 X10*3/uL (160-400); Red Blood Count 3.44 X10*6/uL (4.60-5.80); Red Cell Distribution Width 15.6 % (11.0-16.0); White Blood Count 9.4 X10*3/uL (4.8-10.8)
[2021-12-31 11:47] LABS: Appearance Urine Clear; Color Urine Dark Yellow; Glucose Urine UA Negative (Negative); Leukocyte Esterase Urine Trace (Negative); Nitrite Urine Negative (Negative); PH 7.5 (5.0-9.0); UMIC TRIGGER UACC YES; Urine Blood Negative (Negative); Urine Ketones Negative (Negative); Urine Protein 30 (1+) mg/dL (Neg-Trace)
[2021-12-31 11:53] LABS: Bacteria Urine None Seen (None Seen); Hyaline Casts Urine 0-2 /LPF (0-2); RBC Urine 0-2 /HPF (0-2); Squamous Epithelial Cell Urine 0-2 /HPF (0-2); WBC Urine 0-5 /HPF (0-5)
[2021-12-31 12:05] LABS: Alanine Aminotransferase 31 U/L (0-40); Albumin Level 3.3 g/dL (3.5-5.0); Alkaline Phosphatase 170 U/L (39-117); Anion Gap 18 (12-20); Aspartate Amino Transferase 61 U/L (5-37); Bilirubin Total 1.7 mg/dL (0.0-1.0); Blood Urea Nitrogen 7 mg/dL (9-16); Calcium 8.6 mg/dL (8.4-10.2); Carbon Dioxide 25 mmol/L (22-29); Chloride 99 mmol/L (96-108); Cholesterol 108 mg/dL; Estimated Glomerular Filt Rate > 60; Glucose Fasting 142 mg/dL (60-99); HDL Cholesterol 36 mg/dL; LDL Cholesterol Calculated 58 mg/dl; Magnesium 1.8 mg/dL (1.6-2.6); Potassium 4.5 mmol/L (3.3-5.1); Sodium 137 mmol/L (135-145); Total Protein 6.5 g/dL (6.5-8.0); Triglycerides 70 mg/dL
[2021-12-31 12:09] LABS: TSH reflex Free T4 3.17 uIU/mL (0.32-4.0)
[2021-12-31 12:10] LABS: Estimated Average Glucose 146 mg/dL; Hemoglobin A1c % 6.7 %
[2021-12-31 12:20] LABS: Creatinine Urine 120.32 mg/dL; Microalbum/Creatinine Ratio Ur 80.6 ug/mg cr
== END 2021-12-31 09:29 | disposition home or self-care (01) ==
LOC: HO.HMGCLDS 09:28
PROVIDERS: PCP Nurse Practitioner Family; Visit Provider Nurse Practitioner Family
DX: E11.40 Type 2 diabetes mellitus with diabetic neuropathy, unspecified (principal); R74.8 Abnormal levels of other serum enzymes; F17.200 Nicotine dependence, unspecified, uncomplicated; G47.33 Obstructive sleep apnea (adult) (pediatric); L97.529 Non-pressure chronic ulcer of other part of left foot with unspecified severity
CPT/HCPCS: 36415; 80053; 80061; 81001; 82043; 83036; 83735; 84443; 85025

== ENCOUNTER 2022-01-22 10:59 | Outpatient (REF) | payer OTHER, SELFPAY ==
--- NOTE | 2022-01-22 12:00 | PFT_ITS ---
Forced vital capacity 55%, FEV1 53%, FEV1/FVC ratio is 72. [id number] 44% and MVV 42%. Post bronchodilator, therapy there is a slight improvement in [id number]. Total lung capacity 67% and residual volume 97%. Diffusion capacity 45% CONCLUSION: Moderately severe restrictive pulmonary disorder. Possible mild obstructive airway disorder with slight improvement after bronchodilator therapy. Clinical correlation is recommended. MD SHIMON Henderson/RUBEN / [id number]
== END 2022-01-22 11:00 | disposition home or self-care (01) ==
LOC: HO.RESP 10:59
PROVIDERS: PCP Nurse Practitioner Family; Visit Provider Nurse Practitioner Family
DX: J44.9 Chronic obstructive pulmonary disease, unspecified (principal); F17.200 Nicotine dependence, unspecified, uncomplicated
CPT/HCPCS: 94060; 94727; 94729

== ENCOUNTER 2022-02-11 08:43 | Outpatient (REF) | payer OTHER, SELFPAY ==
--- NOTE | ~2022-02-11 | US_ITS ---
EXAMINATION: US ABDOMEN COMPLETE CLINICAL INFORMATION: Abnormal levels of other serum enzymes. COMPARISON: CT abdomen and pelvis without contrast 01/16/2018. TECHNIQUE: Real-time imaging of the abdominal viscera. FINDINGS: PANCREAS: Visualized portions unremarkable. ABDOMINAL AORTA: Visualized portions unremarkable. INFERIOR VENA CAVA: Visualized portions unremarkable. LIVER: Diffuse increased echotexture without focal abnormality. GALLBLADDER: Unremarkable. COMMON BILE DUCT: Normal in caliber measuring 0.6 cm in diameter. RIGHT KIDNEY: 12.3 cm. A mid to lower pole anechoic cysts measures up to 1.8 cm. An adjacent echogenic focus measures 0.3 cm. A smaller anechoic cyst in the lower pole measures 1.3 cm. No nephrolithiasis or hydronephrosis. LEFT KIDNEY: 13.2 cm. Unremarkable. SPLEEN: 12.9 cm. Unremarkable. FREE FLUID: None. US/US abdomen complete IMPRESSION: 1. Hepatic steatosis. 2. Small left renal cyst demonstrate benign features not requiring follow-up. Nonobstructing punctate intrarenal calculus is calcification.
[2022-02-11 11:50] LABS: Appearance Urine Clear; Color Urine Yellow; Glucose Urine UA Negative (Negative); Leukocyte Esterase Urine Negative (Negative); Nitrite Urine Negative (Negative); Urine Blood Negative (Negative); Urine Ketones Negative (Negative); Urine Protein Negative (Neg-Trace)
[2022-02-11 12:43] LABS: Gamma Glutamyl Transpeptidase 631 U/L (11-51)
== END 2022-02-11 08:44 | disposition home or self-care (01) ==
LOC: HO.HMGCX 08:43
PROVIDERS: PCP Nurse Practitioner Family; Visit Provider Nurse Practitioner Family
DX: R74.8 Abnormal levels of other serum enzymes (principal); E11.40 Type 2 diabetes mellitus with diabetic neuropathy, unspecified; G47.30 Sleep apnea, unspecified; F17.200 Nicotine dependence, unspecified, uncomplicated
CPT/HCPCS: 36415; 76700; 81003; 82977

== ENCOUNTER 2022-03-16 17:33 | Inpatient (IN) | payer OTHER, SELFPAY ==
--- NOTE | ~2022-03-16 | XR_ITS ---
EXAMINATION: XR CHEST CLINICAL INFORMATION: Cough COMPARISON: 08/04/2020 TECHNIQUE: Frontal view of the chest was obtained. FINDINGS: New linear opacity at the right lung base, favors atelectasis. Diffuse coarse interstitial prominence. No pleural effusion or pneumothorax. Normal heart size. Tortuous aorta. No acute osseous abnormality. XR/XR chest 1V IMPRESSION: Diffuse coarse interstitial prominence. Bronchitis or interstitial pneumonitis could give this appearance. New linear opacity at the right lung base, most likely atelectasis.
--- NOTE | ~2022-03-16 | CT_ITS ---
EXAMINATION: CT ABDOMEN AND PELVIS WITHOUT CONTRAST CLINICAL INFORMATION: Fever COMPARISON: Ultrasound abdomen 02/11/2022, CT chest earlier today, CT abdomen pelvis 01/06/2018 TECHNIQUE: Multidetector volumetric imaging was performed from the superior aspect of the liver through the pubic symphysis. Sagittal and coronal reformatted images were obtained on the technologist's workstation. This CT examination was performed using dose optimization techniques as appropriate, variously including the following: *Automated exposure control *Adjustment of mA and/or kV according to patient size (this includes techniques or standardized protocols for targeted exams where dose is matched to indication/reason for exam; i.e. extremities or head) *Use of iterative reconstruction technique DLP: 1151 mGy-cm FINDINGS: LUNG BASES: Right basilar atelectasis is present. No pleural effusion. LIVER, GALLBLADDER, AND BILIARY TREE: The liver is enlarged measuring 25 cm in greatest length (23 cm in 2018) and there is worsening of hepatic steatosis when compared to the prior study from 2018. No focal hepatic lesion or biliary ductal dilatation is present. The gallbladder is unremarkable with no evidence of radiopaque gallstones, gallbladder wall thickening, or obvious pericholecystic inflammatory changes. PANCREAS: Unremarkable. SPLEEN: The spleen is enlarged measuring at least 14.4 cm in greatest transverse dimension ADRENAL GLANDS: Unremarkable. KIDNEYS AND URETERS: The kidneys are normal in size, shape, and attenuation. No hydronephrosis, hydroureter, or calculi seen. No perinephric stranding. BLADDER: Poorly distended with a symmetric thickened wall GASTROINTESTINAL TRACT: There are scattered colonic diverticula without diverticulitis. There is some submucosal fat in the left colon which may be seen with prior inflammation. The small and large bowel are otherwise unremarkable. The appendix is unremarkable. ABDOMINAL WALL: No significant hernia is appreciated. There has been abdominal wall surgery LYMPH NODES: No retroperitoneal lymphadenopathy. VASCULAR: Calcific atherosclerotic plaque in the aorta and iliofemoral vessels without aneurysm. PELVIC VISCERA: The prostate and seminal vesicles are unremarkable. OSSEOUS STRUCTURES: Pedicular screws are present at L3 and L5 with interbody disc spacers present. No pedicular screws are seen at L4. Degenerative changes in the disc noted at L2-L3. No bony destructive lesions. CT/CT abdomen pelvis wo IV con IMPRESSION: 1. A cause for the patient's fever of unknown origin has not been found. 2. Incidental note made of hepatosplenomegaly with worsening hepatic steatosis, colonic diverticulosis without diverticulitis and other incidental findings described above. Fleischner guidelines were followed.
--- NOTE | ~2022-03-16 | CT_ITS ---
EXAMINATION: CT CHEST WITHOUT CONTRAST CLINICAL INFORMATION: Cough and fever COMPARISON: Multiple prior chest radiographs the most recent of which was today, CT abdomen pelvis 10/24/2014 TECHNIQUE: Multidetector volumetric CT imaging of the chest was done. Axial MIP volume rendering provided. Sagittal and coronal reformatted images were obtained. This CT examination was performed using dose optimization techniques as appropriate, variously including the following: *Automated exposure control *Adjustment of mA and/or kV according to patient size (this includes techniques or standardized protocols for targeted exams where dose is matched to indication/reason for exam; i.e. extremities or head) *Use of iterative reconstruction technique DLP: 696 mGy-cm FINDINGS: LUNGS: Right basilar atelectasis is present. The right hemidiaphragm is elevated. MEDIASTINUM: Heart size normal. No mediastinal or hilar lymphadenopathy. CORONARY ARTERY CALCIFICATION: Extensive coronary calcifications PLEURA: There is no pleural effusion. Some posterior pleural fat is seen bilaterally. No worrisome pleural mass or thickening. AXILLA: No lymphadenopathy. UPPER ABDOMEN: There is marked hepatic steatosis and an enlarged liver measuring at least 22 cm in greatest length. There is splenomegaly at 14 cm in greatest transverse dimension. Some small periceliac lymph nodes are seen. OSSEOUS STRUCTURES: Unremarkable. CT/CT chest wo IV con IMPRESSION: 1. A cause for the patient's fever has not been found. 2. Incidental note made of right basilar atelectasis with elevated right hemidiaphragm, enlarged fatty liver and splenomegaly. Fleischner guidelines were followed.
[2022-03-16 17:46] VITALS: BP 140/100; BP 73/42; PULSE 100; PULSE 98; RESP 24; TEMP 37.4; O2SAT 89; O2SAT 96; BMI 35.2
--- NOTE | 2022-03-16 18:00 | ED.GENADULT ---
HPI - General Adult General Chief complaint: Syncope Stated complaint: TREMORS,ETOH USE W/SLUR SPEACH PER EMS Time Seen by Provider: 03/16/22 17:46 Source: patient Limitations: no limitations History of Present Illness HPI narrative: This is a 56-year-old male with a history of diabetes mellitus, hypertension, seizure disorder, coronary disease, hypertension, COPD, restrictive airway disease, thrombocytopenia, obesity, abnormal liver enzymes, who was sent in by his family as he apparently was having episodes of tremors. Patient reports that he has been worked up for this in the past and was diagnosed with partial seizures. He he notes that typically they are very brief and they cause him for example to drop something that he is holding, but he has had falls were related to the seizures in the past. Patient states today he was watching a basketball game, drinking beer. Denies any significant headache. He denies shortness of breath. He notes he does have asthma and has a chronic cough. Denies any fever. Denies abdominal pain. Denies any nausea, vomiting, diarrhea. Notes chronic swelling in his extremities. He notes that he had fracture to his right leg and had hardware placed in the past and has had swelling ever since. Related Data Home Medications Medication Instructions Recorded Confirmed carbamazepine 200 mg tablet 200 mg PO BID 02/17/20 12/27/21 pregabalin 300 mg capsule 300 mg PO BID 02/17/20 12/27/21 lisinopril 5 mg tablet 5 mg PO DAILY 02/02/21 12/27/21 insulin glargine 100 unit/mL (3 30 unit subcut QAM 12/26/21 12/27/21 mL) subcutaneous pen (Lantus Solostar U-100 Insulin) Previous Rx's Medication Instructions Recorded blood sugar diagnostic (OneTouch #10 ea 01/10/20 Ultra Blue Test Strip) lancets (OneTouch UltraSoft #100 ea 01/10/20 Lancets) lancets 30 gauge (OneTouch Delica 30 gauge miscellaneous BID for 06/05/20 Plus Lancet) diabetes mellitus 30 days #100 ea blood pressure monitor #1 ea 01/11/21 blood-glucose meter (OneTouch #1 ea 04/12/21 Ultra2 Meter) blood sugar diagnostic (Accu-Chek #100 ea 04/17/21 Guide test strips) blood sugar diagnostic (FreeStyle #100 ea 04/17/21 Lite Strips) blood-glucose meter (Accu-Chek #1 ea 04/17/21 Guide Me Glucose Meter) blood-glucose meter (FreeStyle #1 ea 04/17/21 Lite Meter kit) lancets (Accu-Chek Softclix #100 ea 04/18/21 Lancets) alcohol swab cap #2,000 ea 04/19/21 albuterol sulfate 90 mcg/actuation 1 inh inhalation Q4-6H PRN 07/20/21 aerosol inhaler (Ventolin HFA) shortness of breath or wheezing #8.5 grams pen needle, diabetic 31 gauge x 1 ea subcut DAILY 90 days #100 ea 10/19/21 5/16 (BD Ultra-Fine Short Pen Needle) flash glucose scanning reader #1 ea 12/26/21 (FreeStyle [place] [address] [place]) flash glucose sensor (FreeStyle #1 ea 12/26/21 Jeremy 2 Sensor kit) Dexcom G6 Hearing Aid Repairer (blood-glucose #1 ea 12/31/21 meter,continuous) Dexcom G6 Sensor (blood-glucose #3 ea 12/31/21 sensor) Dexcom G6 Transmitter #1 ea 12/31/21 (blood-glucose transmitter) metoprolol succinate 50 mg 100 mg PO DAILY #60 tabs 01/11/22 tablet,extended release 24 hr atorvastatin 40 mg tablet 40 mg PO DAILY #90 tabs 02/04/22 tizanidine 4 mg tablet 4 mg PO TID PRN Muscle Spasm 30 02/07/22 days #60 tabs folic acid 1 mg tablet 1 mg PO DAILY #30 tabs 03/07/22 multivitamin (Daily Multi-Vitamin 1 tab PO DAILY #30 tabs 03/07/22 tablet) pyridoxine (vitamin B6) 50 mg 50 mg PO DAILY #30 tabs 03/07/22 tablet thiamine HCl (vitamin B1) 100 mg 100 mg PO DAILY #30 tabs 03/07/22 tablet Allergies Allergy/AdvReac Type Severity Reaction Status Date / Time cyclobenzaprine Allergy Unknown RASH Verified 12/26/21 13:56 [From FLEXERIL] penicillin V Allergy Unknown anaphylaxis Verified 12/26/21 13:56 Review of Systems Review of Systems: Yes all other systems are reviewed and are negative Constitutional: Constitutional: Reports as per HPI and Denies fever(s) Eyes: Eyes: Reports as per HPI and Reports no additional eye complaints ENT: Reports system reviewed and no additional complaints, except as documented, Reports as per HPI, Denies nasal congestion, Denies nasal discharge and Denies sore throat Cardiovascular: Cardiovascular: Reports as per HPI, Denies chest pain, Reports leg edema and Denies dyspnea Respiratory: Respiratory: Reports as per HPI, Reports cough and Denies dyspnea Gastrointestinal: Gastrointestinal: Reports as per HPI, Denies abdominal pain, Denies diarrhea and Denies vomiting Genitourinary: Genitourinary: Reports as per HPI, Denies hematuria, Denies dysuria and Denies urinary frequency Musculoskeletal: Musculoskeletal: Reports no additional musculoskeletal complaints and Denies numbness Integumentary/Breasts: Skin/Breast: Reports as per HPI and Denies rash Comments: Chronic erythema/skin changes to feed Neurologic: Reports as per HPI, Denies focal weakness and Denies numbness Psychiatric: Psychiatric: Reports no additional psychiatric complaints and Reports as per HPI Endocrine: Endocrine: Reports no additional endocrine complaints and Reports as per HPI Hematologic/Lymphatic: Hematologic/Lymphatic: Reports no additional hematologic/lymphatic complaints, Reports as per HPI and Reports other (No peripheral edema) [facility] Past Medical History Medical History (Updated 03/17/22 @ 01:08 by Luis Manuel Castano MD) CAD (coronary artery disease) Fatty liver Foot ulcer, left Fracture of right tibia and fibula History of colon polyps History of hepatitis C History of TIA (transient ischemic attack) HTN (hypertension) Insulin dependent type 2 diabetes mellitus Metatarsal bone fracture Nicotine dependence, cigarettes, uncomplicated Obesity KD (obstructive sleep apnea) Seizure disorder Surgical History (Updated 02/05/22 @ 14:31 by Lisa Devi PA-C) History of cardiac catheterization (~2019) History of colonoscopy (~2019) History of hernia repair History of lumbar spinal fusion History of surgery on lower extremity (~2019) Family History Family History (Updated 02/05/22 @ 14:30 by Lisa Devi PA-C) Father CVD (cardiovascular disease) Colon cancer Mother No problems noted. Brother Liver cancer Paternal Aunt Colon cancer Social History Social History Housing: Apartment Alcohol intake: current Alcohol intake frequency: 0-2 drinks per day Alcohol type: beer and hard liquor Patient Tobacco Use Status: Current everyday Tobacco user Cigarettes Per Day: 10 Smoked in Last 30 Days: Yes Use of substances other than those prescribed or required for medical reasons: Yes Substance Use Type: Marijuana Substance Use Frequency: Weekly Advance Directives: No Advance Directives Information Provided: No Current occupational status: disabled Current occupation: right handed Physical Exam ED Vital Signs: Vital Signs - 24 hr 03/16/22 17:46 03/16/22 19:20 03/16/22 20:23 Temperature 99.3 F 98.3 F Pulse Rate 98 90 90 Respiratory Rate 24 H 18 16 Blood Pressure 73/42 L 87/48 L 106/58 L Pulse Oximetry 96 95 93 Oxygen Delivery Method Nasal Cannula Nasal Cannula Nasal Cannula Oxygen Flow Rate 2 2 03/16/22 22:05 Temperature 98.2 F Pulse Rate 92 Respiratory Rate 18 Blood Pressure 124/75 Pulse Oximetry 96 Oxygen Delivery Method Nasal Cannula Oxygen Flow Rate 3 BMI result Body Mass Index 35.2 Patient chronically ill-appearing, answers questions appropriately, speech is not slurred. Patient does have a persistent dry cough. Skin is warm to touch. Abdomen protuberant, which the patient says is chronic. Lower extremities with nonpitting edema to the feet and ankles, chronic stasis changes Const General: no acute distress Orientation/consciousness: patient oriented x3 HENMT Head: Yes normal to inspection General nose exam: Normal external nose present Mouth: moist mucous membranes Throat: Yes posterior oropharynx normal, Yes tonsils normal and Yes uvula midline Eyes Eyelids: Yes eyelids normal Conjunctivae: conjunctivae normal Pupils: Equal, round and reactive pupils present Neck Neck: Yes supple Resp Effort & Inspection: normal respiratory effort Auscultation: clear to auscultation bilaterally and diminished lung sounds Cardio Rate: regular rate Rhythm: regular rhythm Heart sounds: S1 normal heart sound present, S2 normal heart sound present, no gallops, no murmurs and no rubs GI Inspection: No distended Palpation (GI): Soft to palpation and nontender Auscultation: normal bowel sounds Skin General skin exam: other (Warm and dry) Neuro General: patient oriented x3, CN's II-XI intact bilaterally and other (No tremor or tonic/clonic movement) Cranial nerves: Yes Equal, round and reactive pupils present Extrem General: Yes no pedal edema Psych Affect: normal affect Attitude: cooperative Medications Administered Generic Name Dose Route Start Last Admin Trade Name Freq PRN Reason Stop Dose Admin Enoxaparin Sodium 40 mg 03/16/22 23:00 03/16/22 23:50 Enoxaparin Sodium 40 Mg/0.4 Ml Syringe SUBCUT 40 mg Q24H JAMEEL Administration Cefepime HCl 2 gm/ Sodium 50 mls @ 100 mls/hr 03/16/22 23:00 03/17/22 00:17 Chloride IV Infused Q8H JAMEEL Infusion Discontinued Medications Generic Name Dose Route Start Last Admin Trade Name Josue PRN Reason Stop Dose Admin Sodium Chloride 1,000 mls @ 999 mls/hr 03/16/22 18:00 03/16/22 19:40 Ns IV 03/16/22 19:00 Infused .Q1H1M JAMEEL Infusion Potassium Chloride 10 meq in 100 mls @ 100 mls/hr 03/16/22 19:45 03/17/22 00:32 Potassium Chloride/H20 IV 03/16/22 21:44 Infused Q1H JAMEEL Infusion Sodium Chloride 1,000 mls @ 999 mls/hr 03/16/22 20:00 03/16/22 22:13 Ns IV 03/16/22 21:00 Infused .Q1H1M JAMEEL Infusion Vancomycin HCl 2,000 mg in 520 mls @ 260 mls/hr 03/16/22 22:25 03/17/22 00:31 Vancomycin/Ns IV 03/17/22 00:24 260 mls/hr ONCE ONE Administration Potassium Bicarbonate 25 meq 03/16/22 19:39 03/16/22 20:10 Potassium Bicarbonate/Cit Ac 25 Meq Tablet.Eff PO 03/16/22 19:40 25 meq ONCE ONE Administration Medical Decision Making Medical Decision Making MDM Narrative: Patient with reported episodes of brief tremors, reports he has had these off and on chronically, patient is on carbamazepine, level is therapeutic. Patient did not have any witnessed episodes here. Patient was very hypotensive initially and was bolused normal saline. Patient's creatinine is elevated over baseline consistent with acute kidney injury. Patient was also hypokalemic with a potassium of 2.9. Patient admits regular alcohol use but denied any abdominal pain, vomiting, diarrhea. His lactic acid level was elevated however this is not appear to be due to sepsis, may be related to his hypotension. Lactate did improve with IV fluids. No evidence of infection was found, patient has had a cough but CT of the chest did not show focal pneumonia. Urinalysis was negative for infection. Patient does have chronic skin changes to his feet but no evidence of cellulitis. Patient is alert and without headache, do not suspect meningitis. Patient is being admitted to the hospitalist service, Dr. Gibson accepting Critical care time for this life-threatening illness exclusive of all other billable procedures was approximately 45 minutes including initial evaluation of the patient, ordering tests, x-ray interpretation, EKG interpretation, medical consultation, documentation, reevaluation. Differential Diagnosis Differential Diagnoses: The differential diagnosis associated with the presentation includes GI bleed, pancreatitis, seizure, pneumonia, UTI, sepsis, acute renal failure Admission/Observation Consideration of admission/observation: Escalation of care including admission/observation considered Consult Healthcare Provider Management of the patient was discussed with: Hospitalist Lab Data MDM Lab Attestation statement: I reviewed the patient's lab results. Result Diagrams: 03/16/22 18:15 03/16/22 18:15 Labs: Lab Results 03/16/22 03/16/22 03/16/22 Range/Units 18:15 18:15 18:15 WBC 7.4 (4.8-10.8) X10*3/uL RBC 3.40 L (4.60-5.80) X10*6/uL Hgb 12.6 L (14.0-18.0) g/dl Hct 37.0 L (42.0-52.0) % MCV 108.8 H (80.0-98.0) fL MCH 37.1 H (27.0-33.0) pg MCHC 34.1 (31.0-36.0) g/dl RDW 15.7 (11.0-16.0) % Plt Count 145 L (160-400) X10*3/uL MPV 9.7 (9.4-12.4) fL Immature Gran % (Auto) 0.5 H (0.0-0.4) % Neut % (Auto) 60.7 (45-73) % Lymph % (Auto) 19.0 L (20-40) % [place] % (Auto) 16.4 H (2-11) % Eos % (Auto) 2.6 (0-4) % Baso % (Auto) 0.8 (0-2) % Lymph # (Auto) 1.4 (1.2-4.9) X10*3/uL [place] # (Auto) 1.2 (0.1-1.2) X10*3/uL Eos # (Auto) 0.2 (0.0-0.4) X10*3/uL Baso # (Auto) 0.1 (0.0-0.2) X10*3/uL Abs Immat Gran (auto) 0.04 H (0.00-0.03) X10*3/uL Absolute Neuts (auto) 4.5 (2.0-8.3) x10*3/uL Absolute Nucleated RBC 0.020 H (0.0-0.012) X10*3/uL Nucleated RBC % (auto) 0.3 H (0.0-0.2) /100WBC Sodium 136 (135-145) mmol/L Potassium 2.9 L D (3.3-5.1) mmol/L Chloride 92 L (96-108) mmol/L Carbon Dioxide 29 (22-29) mmol/L Anion Gap 18 (12-20) BUN 7 L (9-16) mg/dL Creatinine 1.46 H (0.5-1.4) mg/dL Estim Creat Clear Calc 77.2 Estimated GFR 50 Random Glucose 272 H (60-115) mg/dL Lactic Acid (0.5-2.0) mmol/L Lactic Acid F/U @ 2Hr (0.5-2.0) mmol/L Calcium 8.2 L (8.4-10.2) mg/dL Magnesium 1.8 (1.6-2.6) mg/dL Total Bilirubin 1.0 (0.0-1.0) mg/dL AST 93 H (5-37) U/L ALT 43 H (0-40) U/L Alkaline Phosphatase 138 H (39-117) U/L Total Protein 5.9 L (6.5-8.0) g/dL Albumin 2.9 L (3.5-5.0) g/dL Urine Color Urine Appearance Urine pH (5.0-9.0) Ur Specific [place] (1.005-1.025) Urine Protein (Neg-Trace) mg/dL Urine Glucose (UA) (Negative) mg/dL Urine Ketones (Negative) mg/dL Urine Blood (Negative) Urine Nitrite (Negative) Ur Leukocyte Esterase (Negative) Carbamazepine (5.0-12.0) mcg/mL Ethyl Alcohol 110 mg/dL Influenza Type A (PCR) NEGATIVE (Negative) Influenza Type B (PCR) NEGATIVE (Negative) RSV RNA Qual (PCR) NEGATIVE (Negative) SARS-CoV-2 RNA (RT-PCR) NEGATIVE (Negative) 03/16/22 03/16/22 03/16/22 Range/Units 18:15 18:15 19:49 WBC (4.8-10.8) X10*3/uL RBC (4.60-5.80) X10*6/uL Hgb (14.0-18.0) g/dl Hct (42.0-52.0) % MCV (80.0-98.0) fL MCH (27.0-33.0) pg MCHC (31.0-36.0) g/dl RDW (11.0-16.0) % Plt Count (160-400) X10*3/uL MPV (9.4-12.4) fL Immature Gran % (Auto) (0.0-0.4) % Neut % (Auto) (45-73) % Lymph % (Auto) (20-40) % [place] % (Auto) (2-11) % Eos % (Auto) (0-4) % Baso % (Auto) (0-2) % Lymph # (Auto) (1.2-4.9) X10*3/uL [place] # (Auto) (0.1-1.2) X10*3/uL Eos # (Auto) (0.0-0.4) X10*3/uL Baso # (Auto) (0.0-0.2) X10*3/uL Abs Immat Gran (auto) (0.00-0.03) X10*3/uL Absolute Neuts (auto) (2.0-8.3) x10*3/uL Absolute Nucleated RBC (0.0-0.012) X10*3/uL Nucleated RBC % (auto) (0.0-0.2) /100WBC Sodium (135-145) mmol/L Potassium (3.3-5.1) mmol/L Chloride (96-108) mmol/L Carbon Dioxide (22-29) mmol/L Anion Gap (12-20) BUN (9-16) mg/dL Creatinine (0.5-1.4) mg/dL Estim Creat Clear Calc Estimated GFR Random Glucose (60-115) mg/dL Lactic Acid 4.0 H* (0.5-2.0) mmol/L Lactic Acid F/U @ 2Hr (0.5-2.0) mmol/L Calcium (8.4-10.2) mg/dL Magnesium (1.6-2.6) mg/dL Total Bilirubin (0.0-1.0) mg/dL AST (5-37) U/L ALT (0-40) U/L Alkaline Phosphatase (39-117) U/L Total Protein (6.5-8.0) g/dL Albumin (3.5-5.0) g/dL Urine Color Yellow Urine Appearance Clear Urine pH 6.0 (5.0-9.0) Ur Specific [place] <= 1.005 (1.005-1.025) Urine Protein Negative (Neg-Trace) mg/dL Urine Glucose (UA) 100 H (Negative) mg/dL Urine Ketones Negative (Negative) mg/dL Urine Blood Negative (Negative) Urine Nitrite Negative (Negative) Ur Leukocyte Esterase Negative (Negative) Carbamazepine 5.7 (5.0-12.0) mcg/mL Ethyl Alcohol mg/dL Influenza Type A (PCR) (Negative) Influenza Type B (PCR) (Negative) RSV RNA Qual (PCR) (Negative) SARS-CoV-2 RNA (RT-PCR) (Negative) 03/16/22 Range/Units 20:54 WBC (4.8-10.8) X10*3/uL RBC (4.60-5.80) X10*6/uL Hgb (14.0-18.0) g/dl Hct (42.0-52.0) % MCV (80.0-98.0) fL MCH (27.0-33.0) pg MCHC (31.0-36.0) g/dl RDW (11.0-16.0) % Plt Count (160-400) X10*3/uL MPV (9.4-12.4) fL Immature Gran % (Auto) (0.0-0.4) % Neut % (Auto) (45-73) % Lymph % (Auto) (20-40) % [place] % (Auto) (2-11) % Eos % (Auto) (0-4) % Baso % (Auto) (0-2) % Lymph # (Auto) (1.2-4.9) X10*3/uL [place] # (Auto) (0.1-1.2) X10*3/uL Eos # (Auto) (0.0-0.4) X10*3/uL Baso # (Auto) (0.0-0.2) X10*3/uL Abs Immat Gran (auto) (0.00-0.03) X10*3/uL Absolute Neuts (auto) (2.0-8.3) x10*3/uL Absolute Nucleated RBC (0.0-0.012) X10*3/uL Nucleated RBC % (auto) (0.0-0.2) /100WBC Sodium (135-145) mmol/L Potassium (3.3-5.1) mmol/L Chloride (96-108) mmol/L Carbon Dioxide (22-29) mmol/L Anion Gap (12-20) BUN (9-16) mg/dL Creatinine (0.5-1.4) mg/dL Estim Creat Clear Calc Estimated GFR Random Glucose (60-115) mg/dL Lactic Acid (0.5-2.0) mmol/L Lactic Acid F/U @ 2Hr 2.8 H* (0.5-2.0) mmol/L Calcium (8.4-10.2) mg/dL Magnesium (1.6-2.6) mg/dL Total Bilirubin (0.0-1.0) mg/dL AST (5-37) U/L ALT (0-40) U/L Alkaline Phosphatase (39-117) U/L Total Protein (6.5-8.0) g/dL Albumin (3.5-5.0) g/dL Urine Color Urine Appearance Urine pH (5.0-9.0) Ur Specific [place] (1.005-1.025) Urine Protein (Neg-Trace) mg/dL Urine Glucose (UA) (Negative) mg/dL Urine Ketones (Negative) mg/dL Urine Blood (Negative) Urine Nitrite (Negative) Ur Leukocyte Esterase (Negative) Carbamazepine (5.0-12.0) mcg/mL Ethyl Alcohol mg/dL Influenza Type A (PCR) (Negative) Influenza Type B (PCR) (Negative) RSV RNA Qual (PCR) (Negative) SARS-CoV-2 RNA (RT-PCR) (Negative) Radiology Impression Discussion of test interpretation with radiology: I have reviewed the radiologist's reading. Radiologist Impression: Chest x-ray:IMPRESSION: Diffuse coarse interstitial prominence. Bronchitis or interstitial pneumonitis could give this appearance. ? New linear opacity at the right lung base, most likely atelectasis. Chest CT: IMPRESSION: 1.? A cause for the patient's fever has not been found. 2.? Incidental note made of right basilar atelectasis with elevated right hemidiaphragm, enlarged fatty liver and splenomegaly. Discharge Plan Discharge Clinical Impression: Acute hypotension, Acute kidney injury, Acute hypokalemia
[2022-03-16 18:21] LABS: MANUAL DIFF FLAG NO
[2022-03-16 18:23] LABS: Basophils Absolute Auto 0.1 X10*3/uL (0.0-0.2); Basophils Percent Auto 0.8 % (0-2); Eosinophils Absolute Auto 0.2 X10*3/uL (0.0-0.4); Eosinophils Percent Auto 2.6 % (0-4); Hemoglobin 12.6 g/dl (14.0-18.0); Imm Gran Abs Auto 0.04 X10*3/uL (0.00-0.03); Imm Gran Pct Auto 0.5 % (0.0-0.4); Lymphocytes Absolute Auto 1.4 X10*3/uL (1.2-4.9); Mean Corpuscular HGB Conc 34.1 g/dl (31.0-36.0); Mean Corpuscular Hemoglobin 37.1 pg (27.0-33.0); Mean Corpuscular Volume 108.8 fL (80.0-98.0); Mean Platelet Volume 9.7 fL (9.4-12.4); Monocytes Absolute Auto 1.2 X10*3/uL (0.1-1.2); Monocytes Percent Auto 16.4 % (2-11); NRBC Pct Auto 0.3 /100WBC (0.0-0.2); Neutrophils Absolute Auto 4.5 x10*3/uL (2.0-8.3); Neutrophils Percent Auto 60.7 % (45-73); Platelet Count 145 X10*3/uL (160-400); Red Cell Distribution Width 15.7 % (11.0-16.0); White Blood Count 7.4 X10*3/uL (4.8-10.8)
[2022-03-16] MEDS: 0.9 % Sodium Chloride 1,000 ML 999 ML IV ×2 (18:39→20:12)
[2022-03-16 18:42] LABS: Alanine Aminotransferase 43 U/L (0-40); Albumin Level 2.9 g/dL (3.5-5.0); Alkaline Phosphatase 138 U/L (39-117); Anion Gap 18 (12-20); Aspartate Amino Transferase 93 U/L (5-37); Blood Urea Nitrogen 7 mg/dL (9-16); Calcium 8.2 mg/dL (8.4-10.2); Carbon Dioxide 29 mmol/L (22-29); Chloride 92 mmol/L (96-108); Creatinine Clr Calc Pharmacy 77.2; Estimated Glomerular Filt Rate 50; Glucose Random 272 mg/dL (60-115); Magnesium 1.8 mg/dL (1.6-2.6); Potassium 2.9 mmol/L (3.3-5.1); Sodium 136 mmol/L (135-145); Total Protein 5.9 g/dL (6.5-8.0)
[2022-03-16 18:43] LABS: Carbamazepine Tegretol 5.7 mcg/mL (5.0-12.0)
[2022-03-16 19:05] LABS: Influenza A PCR NEGATIVE (Negative); Influenza B PCR NEGATIVE (Negative); Resp Syncy Virus RNA Qual PCR NEGATIVE (Negative); SARS COV2 PCR INHOUSE NEGATIVE (Negative)
[2022-03-16 19:20] VITALS: BP 87/48; PULSE 90; RESP 18; TEMP 36.8; O2SAT 95
--- NOTE | 2022-03-16 19:24 | PC.NURSE ---
Pt was on O2 at 4 lpm via NC. Pt SpO2 at 96%; titrated down to 2 L/min via NC and SpO2 remained above 95%.
[2022-03-16 20:00] LABS: Appearance Urine Clear; Color Urine Yellow; Glucose Urine UA 100 mg/dL (Negative); Leukocyte Esterase Urine Negative (Negative); Nitrite Urine Negative (Negative); Specific Gravity - Urine <= 1.005 (1.005-1.025); Urine Blood Negative (Negative); Urine Ketones Negative (Negative); Urine Protein Negative (Neg-Trace)
[2022-03-16] MEDS: Potassium Chloride/H20 10 MEQ/100 ML PIGGYBACK 100 MEQ IV ×2 (20:10→22:11)
[2022-03-16] MEDS: Potassium Bicarbonate/Cit AC 25 MEQ TABLET.EFF PO (20:10)
[2022-03-16 20:19] LABS: Reflex Lactate? Lactic Acid Added
[2022-03-16 20:23] VITALS: BP 106/58; PULSE 90; RESP 16; O2SAT 93
[2022-03-16 21:00] LABS: Ethanol 110 mg/dL
[2022-03-16 21:29] LABS: ~Lactic Acid-LAB USE ONLY 2.8 mmol/L (0.5-2.0)
[2022-03-16 22:05] VITALS: BP 124/75; PULSE 92; RESP 18; TEMP 36.8; O2SAT 96
[2022-03-16 22:58] LABS: Reflex Lactate? 2 Y
[2022-03-16] MEDS: cefEPime HCl 2 GM in 0.9 % Sodium Chloride 50 ML IV (23:47)
[2022-03-16] MEDS: Enoxaparin Sodium 40 MG/0.4 ML SYRINGE SUBCUT (23:50)
[2022-03-17] VITALS (10 sets, daily range): BP systolic 126–165; BP diastolic 65–84; PULSE 89–97; RESP 18–24; TEMP 36.3–37.1; O2SAT 89–96
[2022-03-17 00:23] LABS: ~Lactic Acid-LAB USE ONLY 1.4 mmol/L (0.5-2.0)
--- NOTE | 2022-03-17 05:03 | PC.NURSE ---
Assumed care at 0400, pt came from the ED, pt seen on bed alert and oriented, denies any SOB nor pain, LS dim and with scattered wheezing, O2 tolerated at 3L/min via NC, SR in tele, incont of large stool, need attended, callbell in reach.
--- NOTE | 2022-03-17 05:38 | P.HPHOSP_ITS ---
History of Present Illness Date of Service: 03/16/22 Chief Complaint: passed out 56-year-old male past medical history of CAD, history of hepatitis-C, TIA, HTN, type 2 diabetes, KD, seizure disorder, presents to the hospital with complaints of sudden loss of consciousness. Patient reports that he started having shaking the hand, all of a sudden he passed out, lasting seconds, regain continence spontaneously, and denies any postictal symptoms. Patient reports no acute illness recently, denies any chest pain, no shortness of breath, no cough or sputum production, no diarrhea constipation, no urinary symptoms. On arrival to the ED patient had a blood pressure of 73/42, respiratory rate of 24. Patient noted to have oxygen of 89% on room air. Labs are significant for WBC count of 7.4, hemoglobin phone 0.6, medical 37, potassium of 2.9, chloride of 92, creatinine of 1.46 with a baseline of 0.67, la ctic acid of 4.0, improved after IV fluids, AST of 93, ALT of 43, albumin of 2.9, UA negative, viral serology negative abdominal pelvic CT shows no acute findings, hepatosplenomegaly seen, divertic ulosis seen with no diverticulitis. Chest CT shows right basilar atelectasis with no acute pathology Review of Systems Review of Systems: Yes all other systems are reviewed and are negative [facility] Medical History CAD (coronary artery disease) Fatty liver Foot ulcer, left Fracture of right tibia and fibula History of colon polyps History of hepatitis C History of TIA (transient ischemic attack) HTN (hypertension) Insulin dependent type 2 diabetes mellitus Metatarsal bone fracture Nicotine dependence, cigarettes, uncomplicated Obesity KD (obstructive sleep apnea) Seizure disorder Family History Father CVD (cardiovascular disease) Colon cancer Mother No problems noted. Brother Liver cancer Paternal Aunt Colon cancer Surgical History History of cardiac catheterization (~2018) History of colonoscopy (~2018) History of hernia repair History of lumbar spinal fusion History of surgery on lower extremity (~2019) Social History Household Members: Spouse Household Members Other:: Housing: Apartment Do you presently have visiting nurse or other home services: No Alcohol intake: current Alcohol intake frequency: 0-2 drinks per day Alcohol type: beer and hard liquor Patient Tobacco Use Status: Current everyday Tobacco user Tobacco use type: Cigarette Cigarettes Per Day: 10 Smoked in Last 30 Days: Yes Patient Interested in Nicotine Replacement: No Patient Given Instructions on How to Stop Smoking: Yes Date Education Initiated: 03/17/22 Second Hand Smoke Exposure: Yes Use of substances other than those prescribed or required for medical reasons: Yes Substance Use Type: Marijuana Substance Use Frequency: Weekly Last Used Substance: Days (ago) Currently Displaying Signs/Symptoms of Drug Intoxication Withdrawal: No Any prior treatment program specific to substance use: No Have you been hit, kicked, punched, or otherwise hurt by someone within the past year? If so, by whom?: No Do you feel safe in your current relationship?: No Is there a partner from a previous relationship who is making you feel unsafe now?: No Are you made to feel afraid or neglected: No Advance Directives: No Advance Directives Information Provided: No Do you have thoughts of harming others: None Do you have a plan to hurt others: No Plan Recently lost weight without trying: No How much weight loss: 14-23 pounds Eating poorly because of decreased appetite: No Nutrition screen score: 2 Nutrition Risks: No Nutritional Risk Poor oral hygiene: No Current occupational status: disabled Current occupation: right handed Meds Allergies Allergy/AdvReac Type Severity Reaction Status Date / Time cyclobenzaprine Allergy Unknown RASH Verified 12/26/21 13:56 [From FLEXERIL] penicillin V Allergy Unknown anaphylaxis Verified 12/26/21 13:56 Active Medications: Current Medications Acetaminophen (Acetaminophen 325 Mg Tablet) 650 mg PO Q6H PRN PRN Reason: Pain, Mild (Pain Scale 1-3) Enoxaparin Sodium (Enoxaparin Sodium 40 Mg/0.4 Ml Syringe) 40 mg SUBCUT Q24H [facility] Last Admin: 03/16/22 23:50 Dose: 40 mg Cefepime HCl 2 gm/ Sodium (Chloride) 50 mls @ 100 mls/hr IV Q8H [facility] Last Infusion: 03/17/22 00:17 Dose: Infused Vancomycin HCl 1,000 mg/ (Sodium Chloride) 270 mls @ 270 mls/hr IV Q12H [facility] Ondansetron HCl (Ondansetron Hcl 4 Mg/2 Ml Vial) 4 mg IVPUSH Q8H PRN PRN Reason: Nausea and Vomiting Pharmacy Consult (Consult Rx Vancomycin Dosing) 1 each MISCELLANE DAILY PRN PRN Reason: Consult order Sodium Chloride (0.9 % Sodium Chloride Flush 3 Ml Syringe) 3 ml IVFLUSH QSHIFT [facility] Last Admin: 03/17/22 04:19 Dose: Not Given Home Medications Medication Instructions Recorded Confirmed Last Taken Type carbamazepine 200 mg tablet 200 mg PO BID 02/17/20 03/17/22 Unknown History pregabalin 300 mg capsule 200 mg PO TID 02/17/20 03/17/22 Unknown History insulin glargine 100 unit/mL (3 30 unit subcut QAM 12/26/21 03/17/22 Unknown History mL) subcutaneous pen (Lantus Solostar U-100 Insulin) carbamazepine 200 mg tablet 1 tab PO BEDTIME 03/17/22 03/17/22 Unknown History duloxetine 30 mg capsule,delayed 1 cap PO BID 03/17/22 Unknown History release lisinopril 10 mg tablet 1 tab PO DAILY 03/17/22 Unknown History metoprolol succinate 50 mg 1 tab PO BID 03/17/22 Unknown History tablet,extended release 24 hr multivitamin 1 tab PO DAILY 03/17/22 03/17/22 Unknown History oxycodone 5 mg tablet 1 tab PO DAILY PRN Moderate Pain 03/17/22 Unknown History (Scale Score 5-6) pyridoxine (vitamin B6) 50 mg 1 tab PO DAILY 03/17/22 Unknown History tablet thiamine HCl (vitamin B1) 100 mg 1 tab PO DAILY 03/17/22 Unknown History tablet (Vitamin B-1) tizanidine 4 mg tablet 1 tab PO TID PRN muscle spasm 03/17/22 Unknown History Physical Exam Vital Signs and Narrative: Vital Signs: Last Vital Signs Temp 97.5 F 03/17/22 04:00 Pulse 96 03/17/22 04:00 Resp 24 H 03/17/22 04:00 BP 146/77 H 03/17/22 04:00 Pulse Ox 91 L 03/17/22 04:00 O2 Del Method 03/17/22 04:00 O2 Flow Rate 3 03/17/22 04:00 Oxygen Flow Rate 3 03/17/22 00:54 BMI result Body Mass Index 35.2 Const: General: cooperative and no acute distress Orientation/consciousness: patient oriented x3 Eyes: General: appearance normal, both eyes and all related structures Resp: Effort & Inspection: normal respiratory effort Auscultation: clear to auscultation bilaterally Cardio: Rate: regular rate Rhythm: regular rhythm GI: Palpation (GI): Soft to palpation Auscultation: normal bowel sounds Skin: General skin exam: no rashes or lesions noted Neuro: General: patient oriented x3 Cognition (Neuro): normal cognition Extrem: General: Yes normal to inspection and Yes no pedal edema Results Labs CBC and Chem 7: 03/17/22 05:12 03/17/22 05:12 Labs: Laboratory Results - last 24 hr 03/16/22 03/16/22 03/16/22 18:15 18:15 18:15 MCV 108.8 H MCH 37.1 H MCHC 34.1 RDW 15.7 Plt Count 145 L MPV 9.7 Immature Gran % (Auto) 0.5 H Neut % (Auto) 60.7 Lymph % (Auto) 19.0 L [place] % (Auto) 16.4 H Eos % (Auto) 2.6 Baso % (Auto) 0.8 Lymph # (Auto) 1.4 [place] # (Auto) 1.2 Eos # (Auto) 0.2 Baso # (Auto) 0.1 Abs Immat Gran (auto) 0.04 H Absolute Neuts (auto) 4.5 Absolute Nucleated RBC 0.020 H Nucleated RBC % (auto) 0.3 H Anion Gap 18 Estim Creat Clear Calc 77.2 Estimated GFR 50 Random Glucose 272 H Lactic Acid Lactic Acid F/U @ 2Hr Lactic Acid F/U @ 4Hr Calcium 8.2 L Magnesium 1.8 Total Bilirubin 1.0 AST 93 H ALT 43 H Alkaline Phosphatase 138 H Total Protein 5.9 L Albumin 2.9 L Urine Color Urine Appearance Urine pH Ur Specific [place] Urine Protein Urine Glucose (UA) Urine Ketones Urine Blood Urine Nitrite Ur Leukocyte Esterase Carbamazepine Ethyl Alcohol 110 Influenza Type A (PCR) NEGATIVE Influenza Type B (PCR) NEGATIVE RSV RNA Qual (PCR) NEGATIVE SARS-CoV-2 RNA (RT-PCR) NEGATIVE 03/16/22 03/16/22 03/16/22 18:15 18:15 19:49 MCV MCH MCHC RDW Plt Count MPV Immature Gran % (Auto) Neut % (Auto) Lymph % (Auto) [place] % (Auto) Eos % (Auto) Baso % (Auto) Lymph # (Auto) [place] # (Auto) Eos # (Auto) Baso # (Auto) Abs Immat Gran (auto) Absolute Neuts (auto) Absolute Nucleated RBC Nucleated RBC % (auto) Anion Gap Estim Creat Clear Calc Estimated GFR Random Glucose Lactic Acid 4.0 H* Lactic Acid F/U @ 2Hr Lactic Acid F/U @ 4Hr Calcium Magnesium Total Bilirubin AST ALT Alkaline Phosphatase Total Protein Albumin Urine Color Yellow Urine Appearance Clear Urine pH 6.0 Ur Specific [place] <= 1.005 Urine Protein Negative Urine Glucose (UA) 100 H Urine Ketones Negative Urine Blood Negative Urine Nitrite Negative Ur Leukocyte Esterase Negative Carbamazepine 5.7 Ethyl Alcohol Influenza Type A (PCR) Influenza Type B (PCR) RSV RNA Qual (PCR) SARS-CoV-2 RNA (RT-PCR) 03/16/22 03/17/22 20:54 00:04 MCV MCH MCHC RDW Plt Count MPV Immature Gran % (Auto) Neut % (Auto) Lymph % (Auto) [place] % (Auto) Eos % (Auto) Baso % (Auto) Lymph # (Auto) [place] # (Auto) Eos # (Auto) Baso # (Auto) Abs Immat Gran (auto) Absolute Neuts (auto) Absolute Nucleated RBC Nucleated RBC % (auto) Anion Gap Estim Creat Clear Calc Estimated GFR Random Glucose Lactic Acid Lactic Acid F/U @ 2Hr 2.8 H* Lactic Acid F/U @ 4Hr 1.4 Calcium Magnesium Total Bilirubin AST ALT Alkaline Phosphatase Total Protein Albumin Urine Color Urine Appearance Urine pH Ur Specific [place] Urine Protein Urine Glucose (UA) Urine Ketones Urine Blood Urine Nitrite Ur Leukocyte Esterase Carbamazepine Ethyl Alcohol Influenza Type A (PCR) Influenza Type B (PCR) RSV RNA Qual (PCR) SARS-CoV-2 RNA (RT-PCR) Imaging Radiologist's Impressions: Impressions Chest X-Ray 03/16/22 19:06 IMPRESSION: Diffuse coarse interstitial prominence. Bronchitis or interstitial pneumonitis could give this appearance. New linear opacity at the right lung base, most likely atelectasis. Chest CT 03/16/22 20:57 IMPRESSION: 1. A cause for the patient's fever has not been found. 2. Incidental note made of right basilar atelectasis with elevated right hemidiaphragm, enlarged fatty liver and splenomegaly. Fleischner guidelines were followed. Abdomen/Pelvis CT 03/16/22 23:08 IMPRESSION: 1. A cause for the patient's fever of unknown origin has not been found. 2. Incidental note made of hepatosplenomegaly with worsening hepatic steatosis, colonic diverticulosis without diverticulitis and other incidental findings described above. Fleischner guidelines were followed. Assessment and Plan (1) Acute hypotension: Status: Acute (2) Acute kidney injury: Status: Acute (3) Acute hypokalemia: Status: Acute (4) Seizure disorder: Status: Acute (5) Lactic acidosis: Status: Acute (6) Transaminitis: Status: Acute (7) Syncope: Status: Acute Plan 48-year-old male with past medical history of seizure disorder diabetes, hypertension, COPD, obesityPresents to the hospital with syncopal episode # syncope - possibly seizure - has elevated lactic acid with no evidence of acute infection - will continue home medications - will consult neurology - no seizure-like episode in the ED # lactic acidosis - likely secondary to seizure episode versus dehydration - no evidence of acute infection, chest CT, abdominal CT, UA all negative - resolved with IVF # Hypotension - likely 2/2 dehydration - improved with ivf - no evidence of infection - monitor BP, if normalizeds/increases resume home meds # RADHA - lilely pre-renal due to dehydration - IVF - follow BMP # Transaminitis - hx of fatty liver and hep c positive in the past - CT abd shows hepatosplenomegaly, - will obtain Abd US - Trend liver panel - if increases- consider GI consult # hypokalemia - repleeted - follow K # DM - continue home insulin - will add LDSSI - diabetic diet DVT ppx: Lovenox Time Spent With Patient Time: Total time managing care of this patient today ____ minutes. Quality Stroke Does the patient have a stroke diagnosis?: No VTE Prior VTE?: No VTE Risk Level:: Medical - moderate - high VTE Device Contraindication: Treatment Not Indicated VTE Drug Contraindication: N/A - Med Ordered
[2022-03-17] MEDS: cefEPime HCl 2 GM in 0.9 % Sodium Chloride 50 ML IV ×2 (06:13→14:17)
[2022-03-17 06:19] LABS: Basophils Absolute Auto 0.1 X10*3/uL (0.0-0.2); Basophils Percent Auto 1.2 % (0-2); Eosinophils Absolute Auto 0.1 X10*3/uL (0.0-0.4); Eosinophils Percent Auto 1.8 % (0-4); Hematocrit 37.8 % (42.0-52.0); Hemoglobin 12.6 g/dl (14.0-18.0); Imm Gran Abs Auto 0.04 X10*3/uL (0.00-0.03); Imm Gran Pct Auto 0.7 % (0.0-0.4); MANUAL DIFF FLAG SCAN; Mean Corpuscular HGB Conc 33.3 g/dl (31.0-36.0); Mean Corpuscular Hemoglobin 36.6 pg (27.0-33.0); Mean Corpuscular Volume 109.9 fL (80.0-98.0); Mean Platelet Volume 9.9 fL (9.4-12.4); Monocytes Absolute Auto 1.3 X10*3/uL (0.1-1.2); Monocytes Percent Auto 21.5 % (2-11); Neutrophils Absolute Auto 3.5 x10*3/uL (2.0-8.3); Neutrophils Percent Auto 57.8 % (45-73); Platelet Count 108 X10*3/uL (160-400); Red Blood Count 3.44 X10*6/uL (4.60-5.80); Red Cell Distribution Width 15.8 % (11.0-16.0); SCAN SMEAR FLAG 1; White Blood Count 6.1 X10*3/uL (4.8-10.8)
[2022-03-17 06:36] LABS: SLIDE REVIEW VERIFIED
[2022-03-17 06:52] LABS: Alanine Aminotransferase 44 U/L (0-40); Albumin Level 2.9 g/dL (3.5-5.0); Alkaline Phosphatase 137 U/L (39-117); Anion Gap 14 (12-20); Aspartate Amino Transferase 103 U/L (5-37); Bilirubin Total 1.6 mg/dL (0.0-1.0); Blood Urea Nitrogen 7 mg/dL (9-16); Calcium 7.9 mg/dL (8.4-10.2); Carbon Dioxide 31 mmol/L (22-29); Chloride 98 mmol/L (96-108); Creatinine Clr Calc Pharmacy 119.9; Estimated Glomerular Filt Rate > 60; Glucose Random 189 mg/dL (60-115); Potassium 3.2 mmol/L (3.3-5.1); Sodium 140 mmol/L (135-145); Total Protein 5.9 g/dL (6.5-8.0)
[2022-03-17] MEDS: Potassium Chloride Packet 20 MEQ PACKET 40 MEQ PO ×2 (08:10→11:53)
[2022-03-17] MEDS: Atorvastatin Calcium 40 MG TABLET PO (08:10)
[2022-03-17] MEDS: 0.9 % Sodium Chloride Flush 3 ML SYRINGE IVFLUSH ×2 (08:10→22:13)
[2022-03-17] MEDS: Pregabalin 200 MG CAPSULE PO ×3 (08:10→22:13)
[2022-03-17] MEDS: carBAMazepine 200 MG TABLET PO ×3 (08:10→22:13)
[2022-03-17] MEDS: Insulin Glargine,Hum.rec.anlog 100 UNIT/ML 10 ML VIAL 30 UNIT SUBCUT (08:10)
[2022-03-17] MEDS: Insulin Lispro 100 UNIT/ML 3 ML VIAL SUBCUT ×3 (08:11→16:13)
[2022-03-17 08:12] LABS: Glucose, Whole Blood 172 mg/dL (60-115)
--- NOTE | 2022-03-17 09:46 | PHA.MEDREC ---
Pharmacy Consult ? Medication Reconciliation Pharmacy has completed the medication reconciliation. Spoke with patient's to confirm medications. She helps handle his medications (maria - [phone])
[2022-03-17] MEDS: vancomycin HCL 1,000 MG in 0.9 % Sodium Chloride 250 ML 270 MG IV (11:10)
--- NOTE | 2022-03-17 11:10 | MHC.CM.PN ---
IMM 03/17/22 DELIVERED AND PLACED IN CHART, EMR REVIEWED AND PT ADMITTE W/SEPSIS, CM MET W/PT WHO REPORTS HE LIVES W/ BR[place], USES A WALKER FOR DME AND DENIES HAVING HOME SERVICES, PT MAINLY INDEP HOWEVER ASSISTS W/NEEDS. PT VERIFIES PCP IS RAVINDER SUNSHINE, [facility] X3 AND PT EDUCATED ON AND COMPLETED A HCP NAMING HIS [place] [phone] HIS HCA AND HIS DTR CHRISTIAN [phone] HIS ALTERNATE, COPY HAS BEEN UPLOADED TO [facility] AND PLACED IN CHART. D/C PLAN: HOME NO SERVICES ANTICIPATED W/ FOR TRANSPORT
--- NOTE | 2022-03-17 11:10 | HO.PM.IMPN ---
Subjective Subjective Date of Service: 03/17/22 Interval History: possible seizure episode ,hypotension episode Review of Systems Denies any chest pain or shortness of breath or fever or chills or nausea or vomiting Physical Exam Vital Signs: Vital Signs: Last Vital Signs Temp 98.3 F 03/17/22 07:58 Pulse 94 03/17/22 07:58 Resp 18 03/17/22 07:58 BP 165/84 H 03/17/22 08:09 Pulse Ox 94 03/17/22 07:58 O2 Del Method 03/17/22 07:58 O2 Flow Rate 3 03/17/22 07:58 Oxygen Flow Rate 3 03/17/22 00:54 BMI result Body Mass Index 35.2 Appearance: Alert.? Oriented X3.? not in distress.? cvs: rrr, [id number] , no murmur res: clear to auscultation ,no rhonchii or wheezing abd: no rebound or guarding ,nt, bs present. ext pulses present , no cyanosis. neuro: axo3 , nonfocal. Objective Data Active Medications Acetaminophen (Acetaminophen 325 Mg Tablet) 650 mg PO Q6H PRN PRN Reason: Pain, Mild (Pain Scale 1-3) Atorvastatin Calcium (Atorvastatin Calcium 40 Mg Tablet) 40 mg PO DAILY [facility] Last Admin: 03/17/22 08:10 Dose: 40 mg Documented By: SANDRA Carbamazepine (Carbamazepine 200 Mg Tablet) 200 mg PO BID [facility] Last Admin: 03/17/22 08:10 Dose: 200 mg Documented By: SANDRA Dextrose (Dextrose 50 % 25 Gm/50 Ml Syringe) 25 gm IVPUSH Q15M PRN; Protocol PRN Reason: per Hypoglycemia Standing Ord. Enoxaparin Sodium (Enoxaparin Sodium 40 Mg/0.4 Ml Syringe) 40 mg SUBCUT Q24H [facility] Last Admin: 03/16/22 23:50 Dose: 40 mg Documented By: LATA Glucose (Glucose Gel 15 Gm Gel..Gram.) 15 gm PO Q15M PRN; Protocol PRN Reason: per Hypoglycemia Standing Ord. Cefepime HCl 2 gm/ Sodium (Chloride) 50 mls @ 100 mls/hr IV Q8H [facility] Last Infusion: 03/17/22 07:04 Dose: 100 mls/hr Documented By: SANDRA Vancomycin HCl 1,000 mg/ (Sodium Chloride) 270 mls @ 270 mls/hr IV Q12H [facility] Insulin Glargine (Insulin Glargine,Hum.Rec.Anlog 100 Unit/Ml 10 Ml Vial) 30 unit SUBCUT DAILY [facility] Last Admin: 03/17/22 08:10 Dose: 30 unit Documented By: SANDRA Insulin Human Lispro (Insulin Lispro 100 Unit/Ml 3 Ml Vial) 0 unit SUBCUT QIDACHS [facility]; Protocol Last Admin: 03/17/22 08:11 Dose: 2 unit Documented By: SANDRA Ondansetron HCl (Ondansetron Hcl 4 Mg/2 Ml Vial) 4 mg IVPUSH Q8H PRN PRN Reason: Nausea and Vomiting Pharmacy Consult (Consult Rx Vancomycin Dosing) 1 each MISCELLANE DAILY PRN PRN Reason: Consult order Pharmacy Consult (Consult Rx Perform Med Rec) 1 each MISCELLANE ONCE PRN PRN Reason: Consult order Pregabalin (Pregabalin 200 Mg Capsule) 200 mg PO TID [facility] Last Admin: 03/17/22 08:10 Dose: 200 mg Documented By: SANDRA Sodium Chloride (0.9 % Sodium Chloride Flush 3 Ml Syringe) 3 ml IVFLUSH QSHIFT [facility] Last Admin: 03/17/22 08:10 Dose: 3 ml Documented By: SANDRA Labs CBC & Chem 7: 03/17/22 05:12 03/17/22 05:12 Labs: Laboratory Results - last 24 hr 03/16/22 03/16/22 03/16/22 18:15 18:15 18:15 MCV 108.8 H MCH 37.1 H MCHC 34.1 RDW 15.7 Plt Count 145 L MPV 9.7 Immature Gran % (Auto) 0.5 H Neut % (Auto) 60.7 Lymph % (Auto) 19.0 L [place] % (Auto) 16.4 H Eos % (Auto) 2.6 Baso % (Auto) 0.8 Lymph # (Auto) 1.4 [place] # (Auto) 1.2 Eos # (Auto) 0.2 Baso # (Auto) 0.1 Abs Immat Gran (auto) 0.04 H Absolute Neuts (auto) 4.5 Absolute Nucleated RBC 0.020 H Nucleated RBC % (auto) 0.3 H Smear Tech's Comments Anion Gap 18 Estim Creat Clear Calc 77.2 Estimated GFR 50 POC Glucose Random Glucose 272 H Lactic Acid Lactic Acid F/U @ 2Hr Lactic Acid F/U @ 4Hr Calcium 8.2 L Magnesium 1.8 Total Bilirubin 1.0 Direct Bilirubin AST 93 H ALT 43 H Alkaline Phosphatase 138 H Total Protein 5.9 L Albumin 2.9 L Urine Color Urine Appearance Urine pH Ur Specific [place] Urine Protein Urine Glucose (UA) Urine Ketones Urine Blood Urine Nitrite Ur Leukocyte Esterase Carbamazepine Ethyl Alcohol 110 Influenza Type A (PCR) NEGATIVE Influenza Type B (PCR) NEGATIVE RSV RNA Qual (PCR) NEGATIVE SARS-CoV-2 RNA (RT-PCR) NEGATIVE 03/16/22 03/16/22 03/16/22 18:15 18:15 19:49 MCV MCH MCHC RDW Plt Count MPV Immature Gran % (Auto) Neut % (Auto) Lymph % (Auto) [place] % (Auto) Eos % (Auto) Baso % (Auto) Lymph # (Auto) [place] # (Auto) Eos # (Auto) Baso # (Auto) Abs Immat Gran (auto) Absolute Neuts (auto) Absolute Nucleated RBC Nucleated RBC % (auto) Smear Tech's Comments Anion Gap Estim Creat Clear Calc Estimated GFR POC Glucose Random Glucose Lactic Acid 4.0 H* Lactic Acid F/U @ 2Hr Lactic Acid F/U @ 4Hr Calcium Magnesium Total Bilirubin Direct Bilirubin AST ALT Alkaline Phosphatase Total Protein Albumin Urine Color Yellow Urine Appearance Clear Urine pH 6.0 Ur Specific [place] <= 1.005 Urine Protein Negative Urine Glucose (UA) 100 H Urine Ketones Negative Urine Blood Negative Urine Nitrite Negative Ur Leukocyte Esterase Negative Carbamazepine 5.7 Ethyl Alcohol Influenza Type A (PCR) Influenza Type B (PCR) RSV RNA Qual (PCR) SARS-CoV-2 RNA (RT-PCR) 03/16/22 03/17/22 03/17/22 20:54 00:04 05:12 MCV 109.9 H MCH 36.6 H MCHC 33.3 RDW 15.8 Plt Count 108 L D MPV 9.9 Immature Gran % (Auto) 0.7 H Neut % (Auto) 57.8 Lymph % (Auto) 17.0 L [place] % (Auto) 21.5 H Eos % (Auto) 1.8 Baso % (Auto) 1.2 Lymph # (Auto) 1.0 L [place] # (Auto) 1.3 H Eos # (Auto) 0.1 Baso # (Auto) 0.1 Abs Immat Gran (auto) 0.04 H Absolute Neuts (auto) 3.5 Absolute Nucleated RBC 0.000 Nucleated RBC % (auto) 0.0 Smear Tech's Comments VERIFIED Anion Gap Estim Creat Clear Calc Estimated GFR POC Glucose Random Glucose Lactic Acid Lactic Acid F/U @ 2Hr 2.8 H* Lactic Acid F/U @ 4Hr 1.4 Calcium Magnesium Total Bilirubin Direct Bilirubin AST ALT Alkaline Phosphatase Total Protein Albumin Urine Color Urine Appearance Urine pH Ur Specific [place] Urine Protein Urine Glucose (UA) Urine Ketones Urine Blood Urine Nitrite Ur Leukocyte Esterase Carbamazepine Ethyl Alcohol Influenza Type A (PCR) Influenza Type B (PCR) RSV RNA Qual (PCR) SARS-CoV-2 RNA (RT-PCR) 03/17/22 03/17/22 05:12 08:01 MCV MCH MCHC RDW Plt Count MPV Immature Gran % (Auto) Neut % (Auto) Lymph % (Auto) [place] % (Auto) Eos % (Auto) Baso % (Auto) Lymph # (Auto) [place] # (Auto) Eos # (Auto) Baso # (Auto) Abs Immat Gran (auto) Absolute Neuts (auto) Absolute Nucleated RBC Nucleated RBC % (auto) Smear Tech's Comments Anion Gap 14 Estim Creat Clear Calc 119.9 Estimated GFR > 60 POC Glucose 172 H Random Glucose 189 H Lactic Acid Lactic Acid F/U @ 2Hr Lactic Acid F/U @ 4Hr Calcium 7.9 L Magnesium Total Bilirubin 1.6 H Direct Bilirubin 1.0 H AST 103 H ALT 44 H Alkaline Phosphatase 137 H Total Protein 5.9 L Albumin 2.9 L Urine Color Urine Appearance Urine pH Ur Specific [place] Urine Protein Urine Glucose (UA) Urine Ketones Urine Blood Urine Nitrite Ur Leukocyte Esterase Carbamazepine Ethyl Alcohol Influenza Type A (PCR) Influenza Type B (PCR) RSV RNA Qual (PCR) SARS-CoV-2 RNA (RT-PCR) Assessment and Plan (1) Syncope: Status: Acute (2) Transaminitis: Status: Acute (3) Acute hypotension: Status: Acute (4) Acute kidney injury: Status: Acute (5) Acute hypokalemia: Status: Acute (6) Lactic acidosis: Status: Acute (7) Morbid obesity: Status: Acute Plan 48-year-old male with past medical history of seizure disorder diabetes, hypertension, COPD, obesityPresents to the hospital with syncopal episode # syncope - possibly seizure patient has hx of seizure dis-on carbamezapine medications - will consult neurology - no seizure-like episode in the ED # acute lactic acidosis - likely secondary to seizure episode versus dehydration - no evidence of acute infection, chest CT, abdominal CT, UA all negative - resolved with IVF # Hypotension - likely 2/2 dehydration,bp meds - improved with ivf - no evidence of infection - monitor BP, if normalizeds/increases resume home meds # RADHA - lilely pre-renal due to dehydration - improved IVF - follow BMP # Transaminitis still drink everday-added ciwa scale ,thiamine/folic acid. - hx of fatty liver and hep c positive in the past - CT abd shows hepatosplenomegaly, - will obtain Abd US - Trend liver panel - if increases- consider GI consult # hypokalemia - repleted and improving ,will add more po replacement. # DM - continue home insulin - will add LDSSI - diabetic diet Morbid obesity: encouraged to lose weight. DVT ppx: Lovenox need for inpatient-syncope/seizure ,hypotenion and transamnitis ,electroltic abnormalities -need gentle hydration ,liver dis workup,electrolytic replacements , neurology eval also for seizure. Time Spent With Patient Time: Total time managing care of this patient today ____ minutes. Quality Stroke Does the patient have a stroke diagnosis?: No VTE Prior VTE?: No VTE Risk Level:: Medical - moderate - high VTE Device Contraindication: Treatment Not Indicated VTE Drug Contraindication: N/A - Med Ordered
[2022-03-17 12:07] LABS: Glucose, Whole Blood 186 mg/dL (60-115)
[2022-03-17 15:52] LABS: Glucose, Whole Blood 177 mg/dL (60-115)
--- NOTE | 2022-03-17 17:30 | PM.NEUROCN ---
History of Present Illness Data of Consult Service Date: 03/17/22 Primary Care Provider: Unknown Physician HPI Reason for consult: Syncope. ? Seizure 56 yr man with Hep C, DM, CAD, seizure disorder, TIA, KD admitted after a syncopal episode following shaking of the hand. No eye witness account available. BP in Er was low 73 systolic, hypocalcemia and hypokalemia. Carbamazepine level 5.7 Review of Systems Review of Systems: Denies any chest pain or shortness of breath or fever or chills or nausea or vomiting Yes all other systems are reviewed and are negative Constitutional: Constitutional: Reports as per HPI and Denies fever(s) Eyes: Eyes: Reports as per HPI and Reports no additional eye complaints ENT: Reports system reviewed and no additional complaints, except as documented, Reports as per HPI, Denies nasal congestion, Denies nasal discharge and Denies sore throat Cardiovascular: Cardiovascular: Reports as per HPI, Denies chest pain, Reports leg edema and Denies dyspnea Respiratory: Respiratory: Reports as per HPI, Reports cough and Denies dyspnea Gastrointestinal: Gastrointestinal: Reports as per HPI, Denies abdominal pain, Denies diarrhea and Denies vomiting Genitourinary: Genitourinary: Reports as per HPI, Denies hematuria, Denies dysuria and Denies urinary frequency Musculoskeletal: Musculoskeletal: Reports no additional musculoskeletal complaints and Denies numbness Integumentary/Breasts: Skin/Breast: Reports as per HPI and Denies rash Neurologic: Reports as per HPI, Denies focal weakness and Denies numbness Psychiatric: Psychiatric: Reports no additional psychiatric complaints and Reports as per HPI Endocrine: Endocrine: Reports no additional endocrine complaints and Reports as per HPI Hematologic/Lymphatic: Hematologic/Lymphatic: Reports no additional hematologic/lymphatic complaints, Reports as per HPI and Reports other (No peripheral edema) [facility] Past Medical History Medical History CAD (coronary artery disease) Fatty liver Foot ulcer, left Fracture of right tibia and fibula History of colon polyps History of hepatitis C History of TIA (transient ischemic attack) HTN (hypertension) Insulin dependent type 2 diabetes mellitus Metatarsal bone fracture Nicotine dependence, cigarettes, uncomplicated Obesity KD (obstructive sleep apnea) Seizure disorder Family History Family History Father CVD (cardiovascular disease) Colon cancer Mother No problems noted. Brother Liver cancer Paternal Aunt Colon cancer Surgical History Surgical History History of cardiac catheterization (~2018) History of colonoscopy (~2018) History of hernia repair History of lumbar spinal fusion History of surgery on lower extremity (~2019) Social History Social History Household Members: Spouse Household Members Other:: Housing: Apartment Do you presently have visiting nurse or other home services: No Alcohol intake: current Alcohol intake frequency: 0-2 drinks per day Alcohol type: beer and hard liquor Patient Tobacco Use Status: Current everyday Tobacco user Tobacco use type: Cigarette Cigarettes Per Day: 10 Smoked in Last 30 Days: Yes Patient Interested in Nicotine Replacement: No Patient Given Instructions on How to Stop Smoking: Yes Date Education Initiated: 03/17/22 Second Hand Smoke Exposure: Yes Use of substances other than those prescribed or required for medical reasons: Yes Substance Use Type: Marijuana Substance Use Frequency: Weekly Last Used Substance: Days (ago) Currently Displaying Signs/Symptoms of Drug Intoxication Withdrawal: No Any prior treatment program specific to substance use: No Have you been hit, kicked, punched, or otherwise hurt by someone within the past year? If so, by whom?: No Do you feel safe in your current relationship?: No Is there a partner from a previous relationship who is making you feel unsafe now?: No Are you made to feel afraid or neglected: No Advance Directives: No Advance Directives Information Provided: No Do you have thoughts of harming others: None Do you have a plan to hurt others: No Plan Recently lost weight without trying: No How much weight loss: 14-23 pounds Eating poorly because of decreased appetite: No Nutrition screen score: 2 Nutrition Risks: No Nutritional Risk Poor oral hygiene: No service: No Current occupational status: disabled Current occupation: right handed Meds Allergies Allergy/AdvReac Type Severity Reaction Status Date / Time cyclobenzaprine Allergy Unknown RASH Verified 12/26/21 13:56 [From FLEXERIL] penicillin V Allergy Unknown anaphylaxis Verified 12/26/21 13:56 Active Medications: Current Medications Acetaminophen (Acetaminophen 325 Mg Tablet) 650 mg PO Q6H PRN PRN Reason: Pain, Mild (Pain Scale 1-3) Albuterol Sulfate (Albuterol Sulfate 90 Mcg 8 Gm Inhaler) 2 puff INHALE RQ4H PRN PRN Reason: sob Aspirin (Aspirin Enteric Coated 81 Mg Tablet.) 81 mg PO DAILY [facility] Atorvastatin Calcium (Atorvastatin Calcium 40 Mg Tablet) 40 mg PO DAILY [facility] Last Admin: 03/17/22 08:10 Dose: 40 mg Carbamazepine (Carbamazepine 200 Mg Tablet) 200 mg PO BID [facility] Last Admin: 03/17/22 08:10 Dose: 200 mg Carbamazepine (Carbamazepine 200 Mg Tablet) 200 mg PO BEDTIME [facility] Dextrose (Dextrose 50 % 25 Gm/50 Ml Syringe) 25 gm IVPUSH Q15M PRN; Protocol PRN Reason: per Hypoglycemia Standing Ord. Duloxetine HCl (Duloxetine Hcl 30 Mg Capsule.) 30 mg PO BID [facility] Enoxaparin Sodium (Enoxaparin Sodium 40 Mg/0.4 Ml Syringe) 40 mg SUBCUT Q24H [facility] Last Admin: 03/16/22 23:50 Dose: 40 mg Folic Acid (Folic Acid 1 Mg Tablet) 1 mg PO DAILY [facility] Glucose (Glucose Gel 15 Gm Gel..Gram.) 15 gm PO Q15M PRN; Protocol PRN Reason: per Hypoglycemia Standing Ord. Cefepime HCl 2 gm/ Sodium (Chloride) 50 mls @ 100 mls/hr IV Q8H [facility] Last Infusion: 03/17/22 15:18 Dose: Infused Vancomycin HCl 1,000 mg/ (Sodium Chloride) 270 mls @ 270 mls/hr IV Q12H [facility] Last Infusion: 03/17/22 12:42 Dose: Infused Insulin Glargine (Insulin Glargine,Hum.Rec.Anlog 100 Unit/Ml 10 Ml Vial) 30 unit SUBCUT DAILY [facility] Last Admin: 03/17/22 08:10 Dose: 30 unit Insulin Human Lispro (Insulin Lispro 100 Unit/Ml 3 Ml Vial) 0 unit SUBCUT QIDACHS [facility]; Protocol Last Admin: 03/17/22 16:13 Dose: 2 unit Lisinopril (Lisinopril 10 Mg Tablet) 10 mg PO DAILY [facility]; Protocol Metoprolol Succinate (Metoprolol Succinate Er 100 Mg Tab.Er.24h) 100 mg PO DAILY [facility]; Protocol Multivitamins/Vitamin C (Multivitamin Tablet) 1 tab PO DAILY [facility] Ondansetron HCl (Ondansetron Hcl 4 Mg/2 Ml Vial) 4 mg IVPUSH Q8H PRN PRN Reason: Nausea and Vomiting Oxycodone HCl (Oxycodone Hcl Immed Release 5 Mg Tablet) 5 mg PO DAILY PRN PRN Reason: Moderate Pain (Scale Score 5-6) Pharmacy Consult (Consult Rx Vancomycin Dosing) 1 each MISCELLANE DAILY PRN PRN Reason: Consult order Pharmacy Consult (Consult Rx Perform Med Rec) 1 each MISCELLANE ONCE PRN PRN Reason: Consult order Pregabalin (Pregabalin 200 Mg Capsule) 200 mg PO TID [facility] Last Admin: 03/17/22 14:17 Dose: Not Given Pyridoxine HCl (Pyridoxine Hcl (Vitamin B6) 50 Mg Tablet) 50 mg PO DAILY [facility] Sodium Chloride (0.9 % Sodium Chloride Flush 3 Ml Syringe) 3 ml IVFLUSH QSHIFT [facility] Last Admin: 03/17/22 15:18 Dose: Not Given Thiamine HCl (Thiamine Hcl 100 Mg Tablet) 100 mg PO DAILY [facility] Tizanidine HCl (Tizanidine Hcl 4 Mg Tablet) 4 mg PO TID PRN PRN Reason: muscle spasm Home Medications Medication Instructions Recorded Confirmed Last Taken Type insulin glargine 100 unit/mL (3 30 unit subcut DAILY 12/26/21 03/17/22 03/16/22 History mL) subcutaneous pen (Lantus Solostar U-100 Insulin) aspirin 81 mg tablet,delayed 81 mg PO DAILY 03/17/22 03/17/22 03/16/22 History release carbamazepine 200 mg tablet 1 tab PO BEDTIME 03/17/22 03/17/22 03/16/22 History duloxetine 30 mg capsule,delayed 1 cap PO BID 03/17/22 03/17/22 03/16/22 History release lisinopril 10 mg tablet 1 tab PO DAILY 03/17/22 03/17/22 03/16/22 History metoprolol succinate 50 mg 2 tab PO DAILY 03/17/22 03/17/22 03/16/22 History tablet,extended release 24 hr multivitamin 1 tab PO DAILY 03/17/22 03/17/22 2 Months Ago History ~01/15/22 oxycodone 5 mg tablet 1 tab PO DAILY PRN Moderate Pain 03/17/22 03/17/22 Unknown History (Scale Score 5-6) pregabalin 200 mg capsule 1 cap PO TID 03/17/22 03/17/22 03/16/22 History pyridoxine (vitamin B6) 50 mg 1 tab PO DAILY 03/17/22 03/17/22 03/16/22 History tablet thiamine HCl (vitamin B1) 100 mg 1 tab PO DAILY 03/17/22 03/17/22 03/16/22 History tablet (Vitamin B-1) tizanidine 4 mg tablet 1 tab PO TID PRN muscle spasm 03/17/22 03/17/22 Unknown History Physical Exam Vital Signs: Vital Signs: Last Vital Signs Temp 98.7 F 03/17/22 15:30 Pulse 96 03/17/22 15:30 Resp 18 03/17/22 15:30 BP 134/77 03/17/22 15:30 Pulse Ox 91 L 03/17/22 15:30 O2 Del Method 03/17/22 15:30 O2 Flow Rate 3.0 03/17/22 15:30 Oxygen Flow Rate 3 03/17/22 00:54 BMI result Body Mass Index 35.2 Const: General: cooperative and no acute distress Orientation/consciousness: patient oriented x3 HEENT: Head: Yes normal to inspection General nose exam: Normal external nose present Mouth: moist mucous membranes Throat: Yes posterior oropharynx normal, Yes tonsils normal and Yes uvula midline Eyes: General: appearance normal, both eyes and all related structures Eyelids: Yes eyelids normal Conjunctivae: conjunctivae normal Pupils: Equal, round and reactive pupils present Neck: Neck: Yes supple Resp: Effort & Inspection: normal respiratory effort Auscultation: clear to auscultation bilaterally and diminished lung sounds Cardio: Rate: regular rate Rhythm: regular rhythm Heart sounds: S1 normal heart sound present, S2 normal heart sound present, no gallops, no murmurs and no rubs GI: Inspection: No distended Palpation (GI): Soft to palpation and nontender Auscultation: normal bowel sounds Skin: General skin exam: no rashes or lesions noted and other (Warm and dry) Neuro: Other: Non focal exam. Neck supple General: patient oriented x3, CN's II-XI intact bilaterally and other (No tremor or tonic/clonic movement) Cranial nerves: Yes Equal, round and reactive pupils present Cognition (Neuro): normal cognition Extrem: General: Yes normal to inspection and Yes no pedal edema Psych: Affect: normal affect Attitude: cooperative Results Labs CBC & Chem 7: 03/17/22 05:12 03/17/22 05:12 Labs: Short CBC 03/16/22 03/17/22 Range/Units 18:15 05:12 WBC 7.4 6.1 (4.8-10.8) X10*3/uL Hgb 12.6 L 12.6 L (14.0-18.0) g/dl Hct 37.0 L 37.8 L (42.0-52.0) % Plt Count 145 L 108 L D (160-400) X10*3/uL BMP 03/16/22 03/17/22 18:15 05:12 Sodium 136 140 Potassium 2.9 L D 3.2 L Chloride 92 L 98 Carbon Dioxide 29 31 H BUN 7 L 7 L Creatinine 1.46 H 0.94 Calcium 8.2 L 7.9 L Liver Function 03/16/22 03/17/22 Range/Units 18:15 05:12 Total Bilirubin 1.0 1.6 H (0.0-1.0) mg/dL Direct Bilirubin 1.0 H (0.0-0.5) mg/dL AST 93 H 103 H (5-37) U/L ALT 43 H 44 H (0-40) U/L Alkaline Phosphatase 138 H 137 H (39-117) U/L Albumin 2.9 L 2.9 L (3.5-5.0) g/dL Urine 03/16/22 Range/Units 19:49 Urine Color Yellow Urine Appearance Clear Urine pH 6.0 (5.0-9.0) Ur Specific [place] <= 1.005 (1.005-1.025) Urine Protein Negative (Neg-Trace) mg/dL Urine Glucose (UA) 100 H (Negative) mg/dL Assessment and Plan (1) Syncope: Status: Acute Syncope vs SZ. Recom. EEG, cardiac monitoring. Check orthostatics. Increase Carbamazepine by 200mg/ day (2) Transaminitis: Status: Acute (3) Acute hypotension: Status: Acute (4) Acute kidney injury: Status: Acute (5) Acute hypokalemia: Status: Acute (6) Lactic acidosis: Status: Acute (7) Morbid obesity: Status: Acute Plan 48-year-old male with past medical history of seizure disorder diabetes, hypertension, COPD, obesityPresents to the hospital with syncopal episode # syncope - possibly seizure patient has hx of seizure dis-on carbamezapine medications - will consult neurology - no seizure-like episode in the ED # acute lactic acidosis - likely secondary to seizure episode versus dehydration - no evidence of acute infection, chest CT, abdominal CT, UA all negative - resolved with IVF # Hypotension - likely 2/2 dehydration,bp meds - improved with ivf - no evidence of infection - monitor BP, if normalizeds/increases resume home meds # RADHA - lilely pre-renal due to dehydration - improved IVF - follow BMP # Transaminitis still drink everday-added ciwa scale ,thiamine/folic acid. - hx of fatty liver and hep c positive in the past - CT abd shows hepatosplenomegaly, - will obtain Abd US - Trend liver panel - if increases- consider GI consult # hypokalemia - repleted and improving ,will add more po replacement. # DM - continue home insulin - will add LDSSI - diabetic diet Morbid obesity: encouraged to lose weight. DVT ppx: Lovenox need for inpatient-syncope/seizure ,hypotenion and transamnitis ,electroltic abnormalities -need gentle hydration ,liver dis workup,electrolytic replacements , neurology eval also for seizure. Time Spent With Patient Time: Total time managing care of this patient today ____ minutes. Procedures Date of Service Date of Service: 03/17/22
[2022-03-17 20:19] LABS: Glucose, Whole Blood 133 mg/dL (60-115)
[2022-03-17] MEDS: DULoxetine HCl 30 MG CAPSULE.DR PO (22:13)
[2022-03-17] MEDS: Acetaminophen 325 MG TABLET 650 MG PO (22:18)
[2022-03-18] VITALS (9 sets, daily range): BP systolic 130–141; BP diastolic 63–87; PULSE 70–91; RESP 17–19; TEMP 36–36.3; O2SAT 92–95
--- NOTE | 2022-03-18 | EEG_ITS ---
The waking background activity consists of low voltage fast frequencies seen diffusely, intermixed anteriorly with muscle artifact and posteriorly with the low voltage intermittent 10 hertz. Drowsiness is characterized by diffuse theta slowing. Photic stimulation is without activation. Hyperventilation was omitted. No focal, lateralizing, or paroxysmal discharges seen. IMPRESSION: This awake and drowsy EEG is considered within normal limits. MD URI Willoughby/MODL / [id number]
[2022-03-18] MEDS: cefEPime HCl 2 GM in 0.9 % Sodium Chloride 50 ML IV ×3 (00:12→15:04)
[2022-03-18] MEDS: Enoxaparin Sodium 40 MG/0.4 ML SYRINGE SUBCUT ×2 (00:13→22:22)
[2022-03-18] MEDS: vancomycin HCL 1,000 MG in 0.9 % Sodium Chloride 250 ML 270 MG IV ×2 (00:42→11:10)
--- NOTE | 2022-03-18 06:53 | PC.NURSE ---
In case of emergency contact daughter Queta at per phone conversation with .
[2022-03-18 07:35] LABS: Glucose, Whole Blood 142 mg/dL (60-115)
[2022-03-18 09:31] LABS: Potassium 3.6 mmol/L (3.3-5.1)
--- NOTE | 2022-03-18 09:45 | HE.PHANOTE ---
Re: Vanco dosing Will continue with 1000 mg q12 hours based on therapeutic trough. Continuing to monitor SCr daily. Expected AUC after first dose today is 416.
[2022-03-18 10:23] LABS: Creatinine Clr Calc Pharmacy 163.4; Estimated Glomerular Filt Rate > 60
[2022-03-18] MEDS: 0.9 % Sodium Chloride Flush 3 ML SYRINGE IVFLUSH ×3 (10:29→20:21)
[2022-03-18] MEDS: Insulin Glargine,Hum.rec.anlog 100 UNIT/ML 10 ML VIAL 30 UNIT SUBCUT (10:29)
[2022-03-18] MEDS: Folic Acid 1 MG TABLET PO (10:30)
[2022-03-18] MEDS: Metoprolol Succinate ER 100 MG TAB.ER.24H PO (10:31)
[2022-03-18] MEDS: Pregabalin 200 MG CAPSULE PO ×3 (10:31→20:20)
[2022-03-18] MEDS: carBAMazepine 200 MG TABLET PO ×2 (10:32→20:20)
[2022-03-18] MEDS: Pyridoxine HCl (Vitamin B6) 50 MG TABLET PO (10:32)
[2022-03-18] MEDS: Thiamine HCL 100 MG TABLET PO (10:32)
[2022-03-18] MEDS: DULoxetine HCl 30 MG CAPSULE.DR PO ×2 (10:32→20:20)
[2022-03-18] MEDS: Atorvastatin Calcium 40 MG TABLET PO (10:33)
[2022-03-18] MEDS: Aspirin Enteric Coated 81 MG TABLET.DR PO (10:33)
[2022-03-18] MEDS: lisinopriL 10 MG TABLET PO (10:33)
[2022-03-18] MEDS: Multivitamin TABLET 1 TAB PO (10:34)
--- NOTE | 2022-03-18 11:06 | HO.PM.IMPN ---
Subjective Subjective Date of Service: 03/18/22 Interval History: possible seizure episode ,hypotension episode Review of Systems Denies any chest pain or shortness of breath or fever or chills or nausea or vomiting Physical Exam Vital Signs: Vital Signs: Last Vital Signs Temp 97.1 F 03/18/22 07:50 Pulse 76 03/18/22 07:50 Resp 17 03/18/22 07:50 BP 141/65 H 03/18/22 07:50 Pulse Ox 94 03/18/22 07:50 O2 Del Method 03/18/22 07:50 O2 Flow Rate 3 03/18/22 04:00 Oxygen Flow Rate 3 03/17/22 00:54 BMI result Body Mass Index 35.2 ?Appearance: Alert.? Oriented X3.? not in distress.? cvs: rrr, [id number] , no murmur res: clear to auscultation ,no rhonchii or wheezing abd: no rebound or guarding ,nt, bs present. ext pulses present , no cyanosis. neuro: axo3 , nonfocal. Objective Data Active Medications Acetaminophen (Acetaminophen 325 Mg Tablet) 650 mg PO Q6H PRN PRN Reason: Pain, Mild (Pain Scale 1-3) Last Admin: 03/17/22 22:18 Dose: 650 mg Documented By: JAE Albuterol Sulfate (Albuterol Sulfate 90 Mcg 8 Gm Inhaler) 2 puff INHALE RQ4H PRN PRN Reason: sob Aspirin (Aspirin Enteric Coated 81 Mg Tablet.) 81 mg PO DAILY [facility] Last Admin: 03/18/22 10:33 Dose: 81 mg Documented By: BARBRA Atorvastatin Calcium (Atorvastatin Calcium 40 Mg Tablet) 40 mg PO DAILY [facility] Last Admin: 03/18/22 10:33 Dose: 40 mg Documented By: BARBRA Carbamazepine (Carbamazepine 200 Mg Tablet) 200 mg PO BEDTIME [facility] Last Admin: 03/17/22 22:13 Dose: 200 mg Documented By: JAE Carbamazepine (Carbamazepine 200 Mg Tablet) 200 mg PO DAILY [facility] Last Admin: 03/18/22 10:32 Dose: 200 mg Documented By: BARBRA Dextrose (Dextrose 50 % 25 Gm/50 Ml Syringe) 25 gm IVPUSH Q15M PRN; Protocol PRN Reason: per Hypoglycemia Standing Ord. Duloxetine HCl (Duloxetine Hcl 30 Mg Capsule.) 30 mg PO BID [facility] Last Admin: 03/18/22 10:32 Dose: 30 mg Documented By: BARBRA Enoxaparin Sodium (Enoxaparin Sodium 40 Mg/0.4 Ml Syringe) 40 mg SUBCUT Q24H [facility] Last Admin: 03/18/22 00:13 Dose: 40 mg Documented By: JAE Folic Acid (Folic Acid 1 Mg Tablet) 1 mg PO DAILY [facility] Last Admin: 03/18/22 10:30 Dose: 1 mg Documented By: BARBRA Glucose (Glucose Gel 15 Gm Gel..Gram.) 15 gm PO Q15M PRN; Protocol PRN Reason: per Hypoglycemia Standing Ord. Cefepime HCl 2 gm/ Sodium (Chloride) 50 mls @ 100 mls/hr IV Q8H [facility] Last Infusion: 03/18/22 06:55 Dose: 0 mls/hr Documented By: JAE Vancomycin HCl 1,000 mg/ (Sodium Chloride) 270 mls @ 270 mls/hr IV Q12H [facility] Last Infusion: 03/18/22 02:07 Dose: 0 mls/hr Documented By: JAE Insulin Glargine (Insulin Glargine,Hum.Rec.Anlog 100 Unit/Ml 10 Ml Vial) 30 unit SUBCUT DAILY [facility] Last Admin: 03/18/22 10:29 Dose: 30 unit Documented By: BARBRA Insulin Human Lispro (Insulin Lispro 100 Unit/Ml 3 Ml Vial) 0 unit SUBCUT QIDACHS [facility]; Protocol Last Admin: 03/18/22 08:50 Dose: Not Given Documented By: BARBRA Non-Admin Reason: No Insulin Coverage Lisinopril (Lisinopril 10 Mg Tablet) 10 mg PO DAILY [facility]; Protocol Last Admin: 03/18/22 10:33 Dose: 10 mg Documented By: BARBRA Metoprolol Succinate (Metoprolol Succinate Er 100 Mg Tab.Er.24h) 100 mg PO DAILY [facility]; Protocol Last Admin: 03/18/22 10:31 Dose: 100 mg Documented By: BARBRA Multivitamins/Vitamin C (Multivitamin Tablet) 1 tab PO DAILY [facility] Last Admin: 03/18/22 10:34 Dose: 1 tab Documented By: BARBRA Ondansetron HCl (Ondansetron Hcl 4 Mg/2 Ml Vial) 4 mg IVPUSH Q8H PRN PRN Reason: Nausea and Vomiting Oxycodone HCl (Oxycodone Hcl Immed Release 5 Mg Tablet) 5 mg PO DAILY PRN PRN Reason: Moderate Pain (Scale Score 5-6) Pharmacy Consult (Consult Rx Vancomycin Dosing) 1 each MISCELLANE DAILY PRN PRN Reason: Consult order Pharmacy Consult (Consult Rx Perform Med Rec) 1 each MISCELLANE ONCE PRN PRN Reason: Consult order Pregabalin (Pregabalin 200 Mg Capsule) 200 mg PO TID [facility] Last Admin: 03/18/22 10:31 Dose: 200 mg Documented By: BARBRA Pyridoxine HCl (Pyridoxine Hcl (Vitamin B6) 50 Mg Tablet) 50 mg PO DAILY [facility] Last Admin: 03/18/22 10:32 Dose: 50 mg Documented By: BARBRA Sodium Chloride (0.9 % Sodium Chloride Flush 3 Ml Syringe) 3 ml IVFLUSH QSHIFT [facility] Last Admin: 03/18/22 10:29 Dose: 3 ml Documented By: BARBRA Thiamine HCl (Thiamine Hcl 100 Mg Tablet) 100 mg PO DAILY [facility] Last Admin: 03/18/22 10:32 Dose: 100 mg Documented By: BARBRA Tizanidine HCl (Tizanidine Hcl 4 Mg Tablet) 4 mg PO TID PRN PRN Reason: muscle spasm Labs CBC & Chem 7: 03/17/22 05:12 03/18/22 08:57 Labs: Laboratory Results - last 24 hr 03/17/22 03/17/22 03/17/22 11:28 15:28 19:55 Estim Creat Clear Calc Estimated GFR POC Glucose 186 H 177 H 133 H Vancomycin Trough 03/18/22 03/18/22 03/18/22 07:29 08:57 08:57 Estim Creat Clear Calc 163.4 Estimated GFR > 60 POC Glucose 142 H Vancomycin Trough 18.0 Microbiology Microbiology Results: Microbiology 03/16/22 18:15 Blood Culture - Preliminary Blood - Venous No growth after 24 hours. 03/16/22 18:15 Blood Culture - Preliminary Blood - Venous No growth after 24 hours. Assessment and Plan (1) Syncope: Status: Acute (2) Transaminitis: Status: Acute (3) Acute hypotension: Status: Acute (4) Acute kidney injury: Status: Acute (5) Acute hypokalemia: Status: Acute (6) Lactic acidosis: Status: Acute (7) Morbid obesity: Status: Acute Plan 48-year-old male with past medical history of seizure disorder diabetes, hypertension, COPD, obesityPresents to the hospital with syncopal episode # syncope - possibly seizure patient has hx of seizure dis-on carbamezapine medications - will consult neurology - no seizure-like episode in the ED neuro recomended -eeg,orthostasis , Increase Carbamazepine by 200mg/ day. # acute lactic acidosis - likely secondary to seizure episode versus dehydration no evidence of acute infection, chest CT, abdominal CT, UA all negative,blood culture neg@24 hrs added Id eval -?may not need antibiotics # Hypotension - likely 2/2 dehydration,bp meds - improved with ivf - no evidence of infection - monitor BP, if normalizeds/increases resume home meds # RADHA - lilely pre-renal due to dehydration - improved IVF - follow BMP # Transaminitis still drink everday-added ciwa scale ,thiamine/folic acid. - hx of fatty liver and hep c positive in the past - CT abd shows hepatosplenomegaly, recent Abd US-Hepatic steatosis. - Trend liver panel - if increases- consider GI consult # hypokalemia - repleted and improved. # DM - continue home insulin - will add LDSSI - diabetic diet Morbid obesity: encouraged to lose weight. DVT ppx: Lovenox need for inpatient-syncope/seizure ,hypotenion and transamnitis ,electroltic abnormalities, blood culture need to wait 48 hrs ,electrolytic replacements , neurology workup and Id eval. Time Spent With Patient Time: Total time managing care of this patient today ____ minutes. Quality Stroke Does the patient have a stroke diagnosis?: No VTE Prior VTE?: No VTE Risk Level:: Medical - moderate - high VTE Device Contraindication: Treatment Not Indicated VTE Drug Contraindication: N/A - Med Ordered
[2022-03-18 11:30] LABS: Glucose, Whole Blood 182 mg/dL (60-115)
[2022-03-18 11:40] LABS: Alanine Aminotransferase 45 U/L (0-40); Albumin Level 2.8 g/dL (3.5-5.0); Alkaline Phosphatase 139 U/L (39-117); Aspartate Amino Transferase 104 U/L (5-37); Bilirubin Direct 0.8 mg/dL (0.0-0.5); Bilirubin Total 1.4 mg/dL (0.0-1.0); Total Protein 5.8 g/dL (6.5-8.0)
--- NOTE | 2022-03-18 12:31 | MHC.CM.PN ---
IMM DELIVERED () EMR REVIEWED AND PER MD ROUNDS, PT NOT MEDICALLY CLEARED FOR DC (SEIZURE ACTIVITY, ELECTROLYTE IMBALANCE, BLOOD CULTURES PENDING) CM WILL CONTINUE TO FOLLOW.
--- NOTE | 2022-03-18 14:13 | W.PM.IDCN ---
History of Present Illness Data of Consult Service Date: 03/18/22 Requesting physician: Christina Wang Primary Care Provider: Unknown Physician HPI Reason for consult: tremor?infection He presents with tremors and weakness for a day but tremors have been happening off and on over last several days. He has seizure disorder. Review of Systems Review of Systems: Yes all other systems are reviewed and are negative PMFSH Past Medical History Medical History CAD (coronary artery disease) Fatty liver Foot ulcer, left Fracture of right tibia and fibula History of colon polyps History of hepatitis C History of TIA (transient ischemic attack) HTN (hypertension) Insulin dependent type 2 diabetes mellitus Metatarsal bone fracture Nicotine dependence, cigarettes, uncomplicated Obesity KD (obstructive sleep apnea) Seizure disorder Family History Family History Father CVD (cardiovascular disease) Colon cancer Mother No problems noted. Brother Liver cancer Paternal Aunt Colon cancer Family history: reviewed and not pertinent Surgical History Surgical History History of cardiac catheterization (~2018) History of colonoscopy (~2018) History of hernia repair History of lumbar spinal fusion History of surgery on lower extremity (~2019) Social History Social History Household Members: Spouse Household Members Other:: Housing: Apartment Do you presently have visiting nurse or other home services: No Alcohol intake: current Alcohol intake frequency: 0-2 drinks per day Alcohol type: beer and hard liquor Patient Tobacco Use Status: Current everyday Tobacco user Tobacco use type: Cigarette Cigarettes Per Day: 10 Smoked in Last 30 Days: Yes Patient Interested in Nicotine Replacement: No Patient Given Instructions on How to Stop Smoking: Yes Date Education Initiated: 03/17/22 Second Hand Smoke Exposure: Yes Use of substances other than those prescribed or required for medical reasons: Yes Substance Use Type: Marijuana Substance Use Frequency: Weekly Last Used Substance: Days (ago) Currently Displaying Signs/Symptoms of Drug Intoxication Withdrawal: No Any prior treatment program specific to substance use: No Have you been hit, kicked, punched, or otherwise hurt by someone within the past year? If so, by whom?: No Do you feel safe in your current relationship?: No Is there a partner from a previous relationship who is making you feel unsafe now?: No Are you made to feel afraid or neglected: No Advance Directives: No Advance Directives Information Provided: No Do you have thoughts of harming others: None Do you have a plan to hurt others: No Plan Recently lost weight without trying: No How much weight loss: 14-23 pounds Eating poorly because of decreased appetite: No Nutrition screen score: 2 Nutrition Risks: No Nutritional Risk Poor oral hygiene: No service: No Current occupational status: disabled Current occupation: right handed Meds Allergies Allergy/AdvReac Type Severity Reaction Status Date / Time cyclobenzaprine Allergy Unknown RASH Verified 12/26/21 13:56 [From FLEXERIL] penicillin V Allergy Unknown anaphylaxis Verified 12/26/21 13:56 Active Medications: Current Medications Acetaminophen (Acetaminophen 325 Mg Tablet) 650 mg PO Q6H PRN PRN Reason: Pain, Mild (Pain Scale 1-3) Last Admin: 03/17/22 22:18 Dose: 650 mg Albuterol Sulfate (Albuterol Sulfate 90 Mcg 8 Gm Inhaler) 2 puff INHALE RQ4H PRN PRN Reason: sob Aspirin (Aspirin Enteric Coated 81 Mg Tablet.) 81 mg PO DAILY [facility] Last Admin: 03/18/22 10:33 Dose: 81 mg Atorvastatin Calcium (Atorvastatin Calcium 40 Mg Tablet) 40 mg PO DAILY [facility] Last Admin: 03/18/22 10:33 Dose: 40 mg Carbamazepine (Carbamazepine 200 Mg Tablet) 200 mg PO BEDTIME [facility] Last Admin: 03/17/22 22:13 Dose: 200 mg Carbamazepine (Carbamazepine 200 Mg Tablet) 200 mg PO DAILY [facility] Last Admin: 03/18/22 10:32 Dose: 200 mg Dextrose (Dextrose 50 % 25 Gm/50 Ml Syringe) 25 gm IVPUSH Q15M PRN; Protocol PRN Reason: per Hypoglycemia Standing Ord. Duloxetine HCl (Duloxetine Hcl 30 Mg Capsule.) 30 mg PO BID [facility] Last Admin: 03/18/22 10:32 Dose: 30 mg Enoxaparin Sodium (Enoxaparin Sodium 40 Mg/0.4 Ml Syringe) 40 mg SUBCUT Q24H [facility] Last Admin: 03/18/22 00:13 Dose: 40 mg Folic Acid (Folic Acid 1 Mg Tablet) 1 mg PO DAILY [facility] Last Admin: 03/18/22 10:30 Dose: 1 mg Glucose (Glucose Gel 15 Gm Gel..Gram.) 15 gm PO Q15M PRN; Protocol PRN Reason: per Hypoglycemia Standing Ord. Cefepime HCl 2 gm/ Sodium (Chloride) 50 mls @ 100 mls/hr IV Q8H [facility] Last Infusion: 03/18/22 06:55 Dose: Infused Vancomycin HCl 1,000 mg/ (Sodium Chloride) 270 mls @ 270 mls/hr IV Q12H [facility] Last Infusion: 03/18/22 12:13 Dose: Infused Insulin Glargine (Insulin Glargine,Hum.Rec.Anlog 100 Unit/Ml 10 Ml Vial) 30 unit SUBCUT DAILY [facility] Last Admin: 03/18/22 10:29 Dose: 30 unit Insulin Human Lispro (Insulin Lispro 100 Unit/Ml 3 Ml Vial) 0 unit SUBCUT QIDACHS [facility]; Protocol Last Admin: 03/18/22 13:13 Dose: Not Given Lisinopril (Lisinopril 10 Mg Tablet) 10 mg PO DAILY [facility]; Protocol Last Admin: 03/18/22 10:33 Dose: 10 mg Metoprolol Succinate (Metoprolol Succinate Er 100 Mg Tab.Er.24h) 100 mg PO DAILY [facility]; Protocol Last Admin: 03/18/22 10:31 Dose: 100 mg Multivitamins/Vitamin C (Multivitamin Tablet) 1 tab PO DAILY [facility] Last Admin: 03/18/22 10:34 Dose: 1 tab Ondansetron HCl (Ondansetron Hcl 4 Mg/2 Ml Vial) 4 mg IVPUSH Q8H PRN PRN Reason: Nausea and Vomiting Oxycodone HCl (Oxycodone Hcl Immed Release 5 Mg Tablet) 5 mg PO DAILY PRN PRN Reason: Moderate Pain (Scale Score 5-6) Pharmacy Consult (Consult Rx Vancomycin Dosing) 1 each MISCELLANE DAILY PRN PRN Reason: Consult order Pharmacy Consult (Consult Rx Perform Med Rec) 1 each MISCELLANE ONCE PRN PRN Reason: Consult order Pregabalin (Pregabalin 200 Mg Capsule) 200 mg PO TID [facility] Last Admin: 03/18/22 10:31 Dose: 200 mg Pyridoxine HCl (Pyridoxine Hcl (Vitamin B6) 50 Mg Tablet) 50 mg PO DAILY [facility] Last Admin: 03/18/22 10:32 Dose: 50 mg Sodium Chloride (0.9 % Sodium Chloride Flush 3 Ml Syringe) 3 ml IVFLUSH QSHIFT [facility] Last Admin: 03/18/22 10:29 Dose: 3 ml Thiamine HCl (Thiamine Hcl 100 Mg Tablet) 100 mg PO DAILY [facility] Last Admin: 03/18/22 10:32 Dose: 100 mg Tizanidine HCl (Tizanidine Hcl 4 Mg Tablet) 4 mg PO TID PRN PRN Reason: muscle spasm Home Medications Medication Instructions Recorded Confirmed Last Taken Type insulin glargine 100 unit/mL (3 30 unit subcut DAILY 12/26/21 03/17/22 03/16/22 History mL) subcutaneous pen (Lantus Solostar U-100 Insulin) aspirin 81 mg tablet,delayed 81 mg PO DAILY 03/17/22 03/17/22 03/16/22 History release carbamazepine 200 mg tablet 1 tab PO BEDTIME 03/17/22 03/17/22 03/16/22 History duloxetine 30 mg capsule,delayed 1 cap PO BID 03/17/22 03/17/22 03/16/22 History release lisinopril 10 mg tablet 1 tab PO DAILY 03/17/22 03/17/22 03/16/22 History metoprolol succinate 50 mg 2 tab PO DAILY 03/17/22 03/17/22 03/16/22 History tablet,extended release 24 hr multivitamin 1 tab PO DAILY 03/17/22 03/17/22 2 Months Ago History ~01/15/22 oxycodone 5 mg tablet 1 tab PO DAILY PRN Moderate Pain 03/17/22 03/17/22 Unknown History (Scale Score 5-6) pregabalin 200 mg capsule 1 cap PO TID 03/17/22 03/17/22 03/16/22 History pyridoxine (vitamin B6) 50 mg 1 tab PO DAILY 03/17/22 03/17/22 03/16/22 History tablet thiamine HCl (vitamin B1) 100 mg 1 tab PO DAILY 03/17/22 03/17/22 03/16/22 History tablet (Vitamin B-1) tizanidine 4 mg tablet 1 tab PO TID PRN muscle spasm 03/17/22 03/17/22 Unknown History Physical Exam Vital Signs: Vital Signs: Last Vital Signs Temp 96.8 F 03/18/22 11:05 Pulse 79 12/19/22 11:05 Resp 17 03/18/22 11:05 BP 130/63 03/18/22 11:05 Pulse Ox 92 03/18/22 11:05 O2 Del Method 03/18/22 11:05 O2 Flow Rate 3.0 03/18/22 11:05 Oxygen Flow Rate 3 03/17/22 00:54 BMI result Body Mass Index 35.2 Const: General: cooperative HEENT: Head: Yes normal to inspection Face and sinus: Yes normal facial exam Mouth: Normal oral and palatal mucosa present Teeth and gingiva: dentition normal Eyes: General: appearance normal, both eyes and all related structures Pupils: Equal, round and reactive pupils present Resp: Effort & Inspection: normal respiratory effort Cardio: Rate: regular rate Rhythm: regular rhythm GI: Palpation (GI): Soft to palpation and nontender : General: Yes no CVA tenderness Back/Spine/Pelvis: Back: no CVA tenderness Skin: General skin exam: no rashes or lesions noted Neuro: General: moves all extremities Cranial nerves: Yes Equal, round and reactive pupils present Extrem: General: Yes normal to inspection Psych: Other: sleepy,neck supple Results Labs CBC & Chem 7: 03/17/22 05:12 03/18/22 08:57 Labs: BMP 03/18/22 08:57 Potassium 3.6 Creatinine 0.69 Liver Function 03/18/22 Range/Units 08:57 Total Bilirubin 1.4 H (0.0-1.0) mg/dL Direct Bilirubin 0.8 H (0.0-0.5) mg/dL AST 104 H (5-37) U/L ALT 45 H (0-40) U/L Alkaline Phosphatase 139 H (39-117) U/L Albumin 2.8 L (3.5-5.0) g/dL Microbiology Microbiology Results: Microbiology 03/16/22 18:15 Blood - Venous Blood Culture - Preliminary No growth after 24 hours. 03/16/22 18:15 Blood - Venous Blood Culture - Preliminary No growth after 24 hours. Assessment and Plan (1) Syncope: Status: Acute (2) Seizure disorder: Status: Acute He doesnt seem to have any active source of infection of fever including foot He has negative blood culture. CT scan unremarkable Plan Would hold antibiotics at this time as fever more likely due to seizures If needed further neurologic investigation Time Spent With Patient Time: Total time managing care of this patient today ____ minutes.
[2022-03-18] MEDS: Albuterol/Iprat 2.5/0.5MG 3 ML AMPUL.NEB INHALE ×2 (15:52→19:41)
[2022-03-18 16:03] LABS: Glucose, Whole Blood 142 mg/dL (60-115)
[2022-03-18 19:52] LABS: Glucose, Whole Blood 142 mg/dL (60-115)
[2022-03-18 23:27] LABS: Vancomycin Trough 17.4 mcg/mL (10.0-20.0)
[2022-03-19] VITALS: BP 137/63; PULSE 61; RESP 18; TEMP 36.2; O2SAT 97
[2022-03-19 04:00] VITALS: BP 130/70; PULSE 65; RESP 18; TEMP 36.3; O2SAT 94
[2022-03-19 06:16] LABS: Hematocrit 39.2 % (42.0-52.0); Hemoglobin 12.7 g/dl (14.0-18.0); Mean Corpuscular HGB Conc 32.4 g/dl (31.0-36.0); Mean Platelet Volume 10.6 fL (9.4-12.4); NRBC Pct Auto 0.4 /100WBC (0.0-0.2); Red Blood Count 3.43 X10*6/uL (4.60-5.80); Red Cell Distribution Width 15.9 % (11.0-16.0); White Blood Count 5.2 X10*3/uL (4.8-10.8)
[2022-03-19 06:18] LABS: Mean Corpuscular Volume 114.3 fL (80.0-98.0); Platelet Count 88 X10*3/uL (160-400)
[2022-03-19 06:27] LABS: Alanine Aminotransferase 41 U/L (0-40); Albumin Level 2.9 g/dL (3.5-5.0); Alkaline Phosphatase 140 U/L (39-117); Anion Gap 15 (12-20); Aspartate Amino Transferase 89 U/L (5-37); Bilirubin Total 1.5 mg/dL (0.0-1.0); Blood Urea Nitrogen 5 mg/dL (9-16); Calcium 8.2 mg/dL (8.4-10.2); Carbon Dioxide 34 mmol/L (22-29); Chloride 99 mmol/L (96-108); Creatinine Clr Calc Pharmacy 156.6; Estimated Glomerular Filt Rate > 60; Glucose Random 124 mg/dL (60-115); Potassium 4.4 mmol/L (3.3-5.1); Sodium 144 mmol/L (135-145); Total Protein 5.9 g/dL (6.5-8.0)
[2022-03-19 07:30] VITALS: BP 136/74; PULSE 65; RESP 18; TEMP 36.8; O2SAT 93
[2022-03-19 07:41] LABS: Glucose, Whole Blood 125 mg/dL (60-115)
[2022-03-19] MEDS: Albuterol/Iprat 2.5/0.5MG 3 ML AMPUL.NEB INHALE (08:36)
[2022-03-19] MEDS: Pyridoxine HCl (Vitamin B6) 50 MG TABLET PO (09:27)
[2022-03-19] MEDS: DULoxetine HCl 30 MG CAPSULE.DR PO (09:27)
[2022-03-19] MEDS: 0.9 % Sodium Chloride Flush 3 ML SYRINGE IVFLUSH (09:27)
[2022-03-19] MEDS: Thiamine HCL 100 MG TABLET PO (09:28)
[2022-03-19] MEDS: Pregabalin 200 MG CAPSULE PO (09:28)
[2022-03-19] MEDS: Metoprolol Succinate ER 100 MG TAB.ER.24H PO (09:28)
[2022-03-19] MEDS: Multivitamin TABLET 1 TAB PO (09:28)
[2022-03-19] MEDS: Atorvastatin Calcium 40 MG TABLET PO (09:28)
[2022-03-19] MEDS: Aspirin Enteric Coated 81 MG TABLET.DR PO (09:28)
[2022-03-19] MEDS: Folic Acid 1 MG TABLET PO (09:28)
[2022-03-19] MEDS: lisinopriL 10 MG TABLET PO (09:29)
[2022-03-19] MEDS: Insulin Glargine,Hum.rec.anlog 100 UNIT/ML 10 ML VIAL 30 UNIT SUBCUT (09:29)
[2022-03-19 11:14] LABS: Glucose, Whole Blood 140 mg/dL (60-115)
--- NOTE | 2022-03-19 11:23 | P.DS_ITS ---
DS: Providers Provider Date of Service: 03/19/22 Date of admission: 03/16/22 22:13 Primary care physician: MANDI Gómez Consults: 03/17/22 07:09 Consult to Neurology Routine Consulting Provider: [facility] Reason for consultation: Seizure? Has provider been notified: No 03/18/22 08:36 Consult to Infectious Diseases Routine Consulting Provider: Lashell Chauhan Reason for consultation: sepsis vs seizure Has provider been notified: No DS: Diagnosis Discharge Diagnosis (1) Syncope: Status: Acute (2) Seizure disorder: Status: Acute DS: Summary Hospital Course Hospital Course: history of presenting illness Chief Complaint: passed out ?56-year-old male past medical history of CAD, history of hepatitis-C, TIA, HTN, type 2 diabetes, KD, seizure disorder, presents to the hospital with complaints of sudden loss of consciousness.? Patient reports that he started having shaking the hand, all of a sudden he passed out, lasting seconds, regain continence spontaneously, and denies any postictal symptoms.? Patient reports no acute illness recently, denies any chest pain, no shortness of breath, no cough or sputum production, no diarrhea constipation, no urinary symptoms.? On arrival to the ED patient had a blood pressure of 73/42, respiratory rate of 24.? Patient noted to have oxygen of 89% on room air.? Labs are significant for WBC count of 7.4, hemoglobin phone 0.6, medical 37, potassium of 2.9, chloride of 92, creatinine of 1.46 with a baseline of 0.67, lactic acid of 4.0, improved after IV fluids, AST of 93, ALT of 43, albumin of 2.9, UA negative,? viral serology negative ?abdominal pelvic CT shows no acute findings, hepatosplenomegaly seen, diverticulosis seen with no diverticulitis. Chest CT shows right basilar atelectasis with no acute pathology. hospital course 48-year-old male with past medical history of seizure disorder diabetes, hypertension, COPD, obesity, presents to the hospital with syncopal episode # Syncope likely multifactorial due to hypotension, acute kidney injury, alcohol intoxication and electrolyte abnormalities, no seizure-like activity noted while in the hospital patient was noted to have low Tegretol level, therefore dose of Tegretol increased from 200 mg daily to 200 mg twice daily patient seen by Dr. Claire, EEG was obtained that is negative, Orthostatic blood pressures are normal, patient alcohol level was 110 patient has been strongly advised to abstain from alcohol drink plenty of fluids monitor blood sugars and to have outpatient follow-up with primary care physician to check Tegretol level in 1 week time. # acute lactic acidosis likely secondary to dehydration, CT abdomen CT chest UA were all negative no acute infection found. Patient treated with IV fluids lactic acid normalized. # Hypotension- likely 2/2 dehydration, No infection found patient treated with IV fluids blood pressure improved patient placed back on home medications blood pressure is stable. # RADHA - lilely pre-renal resolved with IV fluids # Transaminitis chronic and stable likely due to alcohol hepatitis LFTs stable, CT abd shows hepatosplenomegaly, recent? Abd US-Hepatic steatosis. # hypokalemia - repleted and improved. # DM - continue home insulin and diabetic diet # Morbid obesity: encouraged to lose weight. # tobacco use disorder nicotine patch ordered slung recommend to abstain from smok Time Spent with Patient Time attestation: Total time managing care of this patient today ____ minutes. Discharge coordination time: Greater than 30 minutes Quality: Safe Use of Opioids Does Pt have an Active Cancer Diagnosis on the Problem List?: No Quality: Stroke Does the patient have a stroke diagnosis?: No Physical Exam Vital Signs: Vital Signs: Last Vital Signs Temp 98.2 F 03/19/22 07:30 Pulse 65 03/19/22 07:30 Resp 18 03/19/22 07:30 BP 136/74 03/19/22 07:30 Pulse Ox 93 03/19/22 07:30 O2 Del Method 03/19/22 07:30 O2 Flow Rate 3.0 03/19/22 07:30 Oxygen Flow Rate 3 03/17/22 00:54 BMI result Body Mass Index 35.2 Const: Other: General awake alert x3 , in no acute distress. Neck supple no JVD. CVS regular rate rhythm, Respiratory lungs clear to auscultation, no respiratory distress, no wheeze, no rhonchi. Gastrointestinal abdomen soft, nontender, bowel sounds audible, no guarding , no rigidity. Extremities no edema. Neuro nonfocal , speech clear. Skin no rash DS: Data Data Completed and Pending Labs on day of discharge: Laboratory Results - last 24 hr 03/18/22 03/18/22 03/18/22 08:57 11:16 15:59 WBC RBC Hgb Hct MCV MCH MCHC RDW Plt Count MPV Absolute Nucleated RBC Nucleated RBC % (auto) Sodium Potassium Chloride Carbon Dioxide Anion Gap BUN Creatinine Estim Creat Clear Calc Estimated GFR POC Glucose 182 H 142 H Random Glucose Calcium Total Bilirubin 1.4 H Direct Bilirubin 0.8 H AST 104 H ALT 45 H Alkaline Phosphatase 139 H Total Protein 5.8 L Albumin 2.8 L Vancomycin Trough 03/18/22 03/18/22 03/19/22 19:30 21:55 05:09 WBC RBC Hgb Hct MCV MCH MCHC RDW Plt Count MPV Absolute Nucleated RBC Nucleated RBC % (auto) Sodium 144 Potassium 4.4 D Chloride 99 Carbon Dioxide 34 H Anion Gap 15 BUN 5 L Creatinine 0.72 Estim Creat Clear Calc 156.6 Estimated GFR > 60 POC Glucose 142 H Random Glucose 124 H Calcium 8.2 L Total Bilirubin 1.5 H Direct Bilirubin AST 89 H ALT 41 H Alkaline Phosphatase 140 H Total Protein 5.9 L Albumin 2.9 L Vancomycin Trough 17.4 03/19/22 03/19/22 03/19/22 05:09 05:09 07:17 WBC 5.2 RBC 3.43 L Hgb 12.7 L Hct 39.2 L MCV 114.3 H MCH 37.0 H MCHC 32.4 RDW 15.9 Plt Count 88 L MPV 10.6 Absolute Nucleated RBC 0.020 H Nucleated RBC % (auto) 0.4 H Sodium Potassium Chloride Carbon Dioxide Anion Gap BUN Creatinine Cancelled Estim Creat Clear Calc Cancelled Estimated GFR Cancelled POC Glucose 125 H Random Glucose Calcium Total Bilirubin Direct Bilirubin AST ALT Alkaline Phosphatase Total Protein Albumin Vancomycin Trough 03/19/22 11:10 WBC RBC Hgb Hct MCV MCH MCHC RDW Plt Count MPV Absolute Nucleated RBC Nucleated RBC % (auto) Sodium Potassium Chloride Carbon Dioxide Anion Gap BUN Creatinine Estim Creat Clear Calc Estimated GFR POC Glucose 140 H Random Glucose Calcium Total Bilirubin Direct Bilirubin AST ALT Alkaline Phosphatase Total Protein Albumin Vancomycin Trough Preliminary micro results at discharge 03/16/22 18:15 Blood Culture - Preliminary Blood - Venous No growth after 48 hours. 03/16/22 18:15 Blood Culture - Preliminary Blood - Venous No growth after 48 hours. Discharge Plan Discharge Anticipated Discharge Date/Time: 03/19/22 11:08 Patient Disposition: Home, Self-Care Discharge Diagnosis: Syncope acute kidney injury acute lactic acidosis tobacco use disorder Referrals: Lauri Gonzalez, [facility] [Primary Care Provider] - 1 Week Discharge Medications: New nicotine 14 mg/24 hr Patch 24 Hour 14 mg transdermal DAILY Qty: 28 0RF carbamazepine [Tegretol] 200 mg tablet 200 mg PO BID Qty: 60 0RF Continued atorvastatin 40 mg tablet 40 mg PO DAILY Qty: 90 3RF folic acid 1 mg tablet 1 mg PO DAILY Qty: 30 2RF multivitamin Tablet 1 tab PO DAILY tizanidine 4 mg tablet 1 tab PO TID PRN (Reason: muscle spasm) metoprolol succinate 50 mg tablet extended release 24 hr 2 tab PO DAILY thiamine HCl (vitamin B1) [Vitamin B-1] 100 mg tablet 1 tab PO DAILY lisinopril 10 mg tablet 1 tab PO DAILY pyridoxine (vitamin B6) 50 mg tablet 1 tab PO DAILY oxycodone 5 mg tablet 1 tab PO DAILY PRN (Reason: Moderate Pain (Scale Score 5-6)) duloxetine 30 mg capsule,delayed release(DR/EC) 1 cap PO BID pregabalin 200 mg capsule 1 cap PO TID aspirin 81 mg Tablet,Delayed Release (Dr/Ec) 81 mg PO DAILY insulin glargine [Lantus Solostar U-100 Insulin] 100 unit/mL (3 mL) insulin pen 30 unit subcut DAILY Discontinued carbamazepine 200 mg tablet 1 tab PO BEDTIME Discharge Orders: Discharge Order (Routine); Ordered 03/19/22 Ordered By: Moo You Diet: Diabetic diet Activity on Discharge: As tolerated Stand Alone Forms: Patient Portal Discharge page Other Ambulatory Orders: Carbamazepine Tegretol (Routine) Timeframe: 1 Week Facility: [facility] - Location: Laboratory Ordered By: Moo You Care Plan Goals: syncope unknown etiology, low Tegretol level dose of Tegretol increased to 200 mg b.i.d., EEG normal strongly recommend to abstain from Health Concerns: strongly advised to abstain from smoking and alcohol, placed on nicotine patch take all home medications as above Plan of Treatment: outpatient follow-up with primary care physician, repeat TEGRETOL LEVEL IN 1 WEEK Assessment: ABOVE
[2022-03-19 11:29] VITALS: BP 129/64; PULSE 74; RESP 18; TEMP 36.7; O2SAT 94
--- NOTE | 2022-03-19 11:30 | MHC.CM.PN ---
DP: PT MEDICALLY CLEARED FOR DC HOME, NO SERVICES. RN AWARE. [facility] WILL TRANSPORT HOME
--- NOTE | 2022-03-19 11:49 | PM.NEUROPN ---
Subjective Subjective Date of Service: 03/19/22 Interval History: No Sz. No previou sh/o Sz . EEG normal. Hi scarbamazepine use is for control of neuropathic pain in his feet ( Dr. Menendez) He also apperas to have severe KD by Hx and needs OP home sleep study MARINA. Critical Care Time (minutes): 0 Physical Exam Vital Signs: Vital Signs: Last Vital Signs Temp 98.0 F 03/19/22 11:29 Pulse 74 03/19/22 11:29 Resp 18 03/19/22 11:29 BP 129/64 03/19/22 11:29 Pulse Ox 94 03/19/22 11:29 O2 Del Method 03/19/22 11:29 O2 Flow Rate 3.0 03/19/22 07:30 Oxygen Flow Rate 3 03/17/22 00:54 BMI result Body Mass Index 35.2 Const: Other: General awake alert x3 , in no acute distress. Neck supple no JVD. CVS regular rate rhythm, Respiratory lungs clear to auscultation, no respiratory distress, no wheeze, no rhonchi. Gastrointestinal abdomen soft, nontender, bowel sounds audible, no guarding , no rigidity. Extremities no edema. Neuro nonfocal , speech clear. Skin no rash General: cooperative and no acute distress Orientation/consciousness: patient oriented x3 HEENT: Head: Yes normal to inspection General nose exam: Normal external nose present Face and sinus: Yes normal facial exam Mouth: Normal oral and palatal mucosa present and moist mucous membranes Teeth and gingiva: dentition normal Throat: Yes posterior oropharynx normal, Yes tonsils normal and Yes uvula midline Eyes: General: appearance normal, both eyes and all related structures Eyelids: Yes eyelids normal Conjunctivae: conjunctivae normal Pupils: Equal, round and reactive pupils present Neck: Neck: Yes supple Resp: Effort & Inspection: normal respiratory effort Auscultation: clear to auscultation bilaterally and diminished lung sounds Cardio: Rate: regular rate Rhythm: regular rhythm Heart sounds: S1 normal heart sound present, S2 normal heart sound present, no gallops, no murmurs and no rubs GI: Inspection: No distended Palpation (GI): Soft to palpation and nontender Auscultation: normal bowel sounds : General: Yes no CVA tenderness Back/Spine/Pelvis: Back: no CVA tenderness Skin: General skin exam: no rashes or lesions noted and other (Warm and dry) Neuro: Other: Non focal exam. Neck supple General: patient oriented x3, moves all extremities, CN's II-XI intact bilaterally and other (No tremor or tonic/clonic movement) Cranial nerves: Yes Equal, round and reactive pupils present Cognition (Neuro): normal cognition Extrem: General: Yes normal to inspection and Yes no pedal edema Psych: Other: sleepy,neck supple Affect: normal affect Attitude: cooperative Objective Data Labs CBC & Chem 7: 03/19/22 05:09 03/19/22 05:09 Labs: Laboratory Results - last 24 hr 03/18/22 03/18/22 03/18/22 15:59 19:30 21:55 WBC RBC Hgb Hct MCV MCH MCHC RDW Plt Count MPV Absolute Nucleated RBC Nucleated RBC % (auto) Sodium Potassium Chloride Carbon Dioxide Anion Gap BUN Creatinine Estim Creat Clear Calc Estimated GFR POC Glucose 142 H 142 H Random Glucose Calcium Total Bilirubin AST ALT Alkaline Phosphatase Total Protein Albumin Vancomycin Trough 17.4 03/19/22 03/19/22 03/19/22 05:09 05:09 05:09 WBC 5.2 RBC 3.43 L Hgb 12.7 L Hct 39.2 L MCV 114.3 H MCH 37.0 H MCHC 32.4 RDW 15.9 Plt Count 88 L MPV 10.6 Absolute Nucleated RBC 0.020 H Nucleated RBC % (auto) 0.4 H Sodium 144 Potassium 4.4 D Chloride 99 Carbon Dioxide 34 H Anion Gap 15 BUN 5 L Creatinine 0.72 Cancelled Estim Creat Clear Calc 156.6 Cancelled Estimated GFR > 60 Cancelled POC Glucose Random Glucose 124 H Calcium 8.2 L Total Bilirubin 1.5 H AST 89 H ALT 41 H Alkaline Phosphatase 140 H Total Protein 5.9 L Albumin 2.9 L Vancomycin Trough 03/19/22 03/19/22 07:17 11:10 WBC RBC Hgb Hct MCV MCH MCHC RDW Plt Count MPV Absolute Nucleated RBC Nucleated RBC % (auto) Sodium Potassium Chloride Carbon Dioxide Anion Gap BUN Creatinine Estim Creat Clear Calc Estimated GFR POC Glucose 125 H 140 H Random Glucose Calcium Total Bilirubin AST ALT Alkaline Phosphatase Total Protein Albumin Vancomycin Trough Microbiology Microbiology Results: Microbiology 03/16/22 18:15 Blood - Venous Blood Culture - Preliminary No growth after 48 hours. 03/16/22 18:15 Blood - Venous Blood Culture - Preliminary No growth after 48 hours. Progress Note: A&P Assessment and plan (1) Syncope: Status: Acute (2) Seizure disorder: Status: Acute Assessment and Plan: He araujo snot have a sz disorder. He appwears to have severe DK Recom. OP home sleep study MARINA. Plan 48-year-old male with past medical history of seizure disorder diabetes, hypertension, COPD, obesityPresents to the hospital with syncopal episode # syncope - possibly seizure patient has hx of seizure dis-on carbamezapine medications - will consult neurology - no seizure-like episode in the ED neuro recomended -eeg,orthostasis , Increase Carbamazepine by 200mg/ day. # acute lactic acidosis - likely secondary to seizure episode versus dehydration no evidence of acute infection, chest CT, abdominal CT, UA all negative,blood culture neg@24 hrs added Id eval -?may not need antibiotics # Hypotension - likely 2/2 dehydration,bp meds - improved with ivf - no evidence of infection - monitor BP, if normalizeds/increases resume home meds # RADHA - lilely pre-renal due to dehydration - improved IVF - follow BMP # Transaminitis still drink everday-added ciwa scale ,thiamine/folic acid. - hx of fatty liver and hep c positive in the past - CT abd shows hepatosplenomegaly, recent Abd US-Hepatic steatosis. - Trend liver panel - if increases- consider GI consult # hypokalemia - repleted and improved. # DM - continue home insulin - will add LDSSI - diabetic diet Morbid obesity: encouraged to lose weight. DVT ppx: Lovenox need for inpatient-syncope/seizure ,hypotenion and transamnitis ,electroltic abnormalities, blood culture need to wait 48 hrs ,electrolytic replacements , neurology workup and Id eval. Time Spent With Patient Time: Total time managing care of this patient today ____ minutes. Procedures Date of Service Date of Service: 03/19/22 Quality Stroke Does the patient have a stroke diagnosis?: No VTE Prior VTE?: No VTE Risk Level:: Medical - moderate - high VTE Device Contraindication: Treatment Not Indicated VTE Drug Contraindication: N/A - Med Ordered
[2022-03-19] MEDS: Nicotine 14 MG PATCH.TD24 TRANSDERMA (11:58)
== END 2022-03-19 13:07 | disposition home or self-care (01) | DRG 683 ==
LOC: HO.ED 18:18 → HO.EDOVER 22:36 → HO.S3 03-17 01:05
PROVIDERS: Internal Medicine; Admitting Provider Internal Medicine; Emergency Provider Emergency Medicine; PCP Nurse Practitioner Family; Visit Provider Hospitalist
DX: N17.9 Acute kidney failure, unspecified (principal); E87.21 Acute metabolic acidosis; J98.11 Atelectasis; I95.9 Hypotension, unspecified; K76.0 Fatty (change of) liver, not elsewhere classified; Z86.73 Personal history of transient ischemic attack (TIA), and cerebral infarction without residual deficits; Z86.19 Personal history of other infectious and parasitic diseases; F17.210 Nicotine dependence, cigarettes, uncomplicated; Y90.5 Blood alcohol level of 100-119 mg/100 ml; I25.10 Atherosclerotic heart disease of native coronary artery without angina pectoris; E87.6 Hypokalemia; E86.0 Dehydration; Z71.6 Tobacco abuse counseling; G47.33 Obstructive sleep apnea (adult) (pediatric); E83.51 Hypocalcemia; E11.40 Type 2 diabetes mellitus with diabetic neuropathy, unspecified; F10.929 Alcohol use, unspecified with intoxication, unspecified; R56.9 Unspecified convulsions; Z20.822 Contact with and (suspected) exposure to COVID-19; Z88.0 Allergy status to penicillin; Z88.8 Allergy status to other drugs, medicaments and biological substances; Z98.1 Arthrodesis status; Z79.82 Long term (current) use of aspirin; Z79.4 Long term (current) use of insulin; Z79.899 Other long term (current) drug therapy
CPT/HCPCS: 0241U; 36415; 71045; 71250; 74176; 80048; 80053; 80076; 80156; 80202; 81003; 82077; 82565; 82947; 83605; 83735; 84132; 85025; 85027; 87040; 95816; 99285; J0692; J1650; J3370

== ENCOUNTER 2022-04-02 09:00 | Outpatient (REF) | payer OTHER, SELFPAY ==
[2022-04-02 11:23] LABS: MANUAL DIFF FLAG NO
[2022-04-02 11:29] LABS: Appearance Urine Clear; Color Urine Dark Yellow; Glucose Urine UA Negative (Negative); Leukocyte Esterase Urine Negative (Negative); Nitrite Urine Negative (Negative); Specific Gravity - Urine 1.015 (1.005-1.025); Urine Blood Negative (Negative); Urine Ketones Negative (Negative); Urine Protein Negative (Neg-Trace)
[2022-04-02 11:36] LABS: Basophils Absolute Auto 0.1 X10*3/uL (0.0-0.2); Basophils Percent Auto 1.8 % (0-2); Eosinophils Absolute Auto 0.2 X10*3/uL (0.0-0.4); Eosinophils Percent Auto 3.2 % (0-4); Hematocrit 43.1 % (42.0-52.0); Hemoglobin 14.3 g/dl (14.0-18.0); Imm Gran Abs Auto 0.02 X10*3/uL (0.00-0.03); Imm Gran Pct Auto 0.4 % (0.0-0.4); Lymphocytes Absolute Auto 1.2 X10*3/uL (1.2-4.9); Lymphocytes Percent Auto 21.1 % (20-40); Mean Corpuscular HGB Conc 33.2 g/dl (31.0-36.0); Mean Corpuscular Hemoglobin 36.7 pg (27.0-33.0); Mean Corpuscular Volume 110.5 fL (80.0-98.0); Mean Platelet Volume 11.8 fL (9.4-12.4); Monocytes Absolute Auto 0.7 X10*3/uL (0.1-1.2); Monocytes Percent Auto 12.3 % (2-11); Neutrophils Absolute Auto 3.5 x10*3/uL (2.0-8.3); Neutrophils Percent Auto 61.2 % (45-73); Platelet Count 116 X10*3/uL (160-400); Red Cell Distribution Width 15.2 % (11.0-16.0); White Blood Count 5.6 X10*3/uL (4.8-10.8)
[2022-04-02 11:54] LABS: Estimated Average Glucose 146 mg/dL; Hemoglobin A1c % 6.7 %
[2022-04-02 12:20] LABS: Alanine Aminotransferase 28 U/L (0-40); Albumin Level 3.1 g/dL (3.5-5.0); Alkaline Phosphatase 151 U/L (39-117); Anion Gap 15 (12-20); Aspartate Amino Transferase 62 U/L (5-37); Bilirubin Total 0.6 mg/dL (0.0-1.0); Blood Urea Nitrogen 7 mg/dL (9-16); Calcium 9.1 mg/dL (8.4-10.2); Carbon Dioxide 26 mmol/L (22-29); Chloride 105 mmol/L (96-108); Estimated Glomerular Filt Rate > 60; Glucose Random 64 mg/dL (60-115); Potassium 4.3 mmol/L (3.3-5.1); Sodium 142 mmol/L (135-145); Total Protein 6.6 g/dL (6.5-8.0)
[2022-04-02 12:23] LABS: Creatinine Urine 110.05 mg/dL; Microalbum/Creatinine Ratio Ur 11.8 ug/mg cr
[2022-04-02 12:36] LABS: Carbamazepine Tegretol < 2.0 mcg/mL (5.0-12.0)
[2022-04-02 12:41] LABS: TSH reflex Free T4 3.34 uIU/mL (0.32-4.0)
== END 2022-04-02 09:01 | disposition home or self-care (01) ==
LOC: HO.HMGCLDS 09:00
PROVIDERS: PCP Nurse Practitioner Family; Visit Provider Nurse Practitioner Family
DX: E87.8 Other disorders of electrolyte and fluid balance, not elsewhere classified (principal); F10.10 Alcohol abuse, uncomplicated; E11.9 Type 2 diabetes mellitus without complications; R55 Syncope and collapse; Z79.899 Other long term (current) drug therapy
CPT/HCPCS: 36415; 80053; 80156; 81003; 82043; 83036; 84443; 85025

== ENCOUNTER 2022-05-15 14:23 | Inpatient (IN) | payer OTHER, SELFPAY ==
[2022-05-15] VITALS (19 sets, daily range): BP systolic 84–199; BP diastolic 51–118; PULSE 66–77; RESP 12–18; TEMP 35–37.6; O2SAT 69–96; BMI 37.3
--- NOTE | ~2022-05-15 | XR_ITS ---
EXAMINATION: XR CHEST CLINICAL INFORMATION: Hypoxia COMPARISON: May 18, 2022 and May 16, 2022 TECHNIQUE: AP portable view of the chest was obtained. FINDINGS: Tracheostomy tube in place. Evaluation of mediastinal structures is limited due to rotation of the image. There is again noted to be right base and left retrocardiac disease. The cardiopericardial silhouette is enlarged. No evidence of pulmonary edema. Retrocardiac disease evaluation is limited. No pneumothorax. XR/XR chest 1V IMPRESSION: Essentially stable appearance of the chest with enlarged cardiopericardial silhouette and bibasilar disease.
--- NOTE | ~2022-05-15 | XR_ITS ---
EXAMINATION: XR CHEST CLINICAL INFORMATION: Hypoxia COMPARISON: 05/15/2022 TECHNIQUE: Frontal view of the chest was obtained. FINDINGS: Midline tracheostomy. Cardiac leads overlie the chest. Chronic elevation of the right hemidiaphragm. Persistent right midlung hazy opacity. Persistent left basilar opacity. No pneumothorax. No definite pleural effusion. The cardiomediastinal silhouette remains prominent. XR/XR chest 1V IMPRESSION: No significant change. Persistent right midlung and left basilar opacities. This could represent atelectasis or pneumonia. Aspiration possible.
--- NOTE | ~2022-05-15 | XR_ITS ---
EXAMINATION: XR CHEST CLINICAL INFORMATION: NG tube placement. COMPARISON: Most recent chest radiograph dated 05/19/2022. TECHNIQUE: Frontal view of the chest was obtained. FINDINGS: Redemonstration of a midline tracheostomy. Interval placement of an enterogastric tube with the tip extending inferior to the left hemidiaphragm and beyond the imaged [id number]. No pleural effusion or pneumothorax. Hypoinflation of the right lung is redemonstrated with linear atelectasis versus scarring. No left lung airspace opacity. Stable cardiomediastinal silhouette. XR/XR chest 1V IMPRESSION: 1. Enterogastric tube in appropriate position with the tip extending inferior to the left hemidiaphragm and beyond the imaged [id number]. 2. Hypoinflation of the right lung with linear atelectasis versus scarring, unchanged.
--- NOTE | ~2022-05-15 | XR_ITS ---
EXAMINATION: XR CHEST CLINICAL INFORMATION: Hypoxia COMPARISON: May 16, 2022 TECHNIQUE: AP portable view of the chest was obtained. FINDINGS: Tracheostomy tube in place. Discoid disease again seen right base. No evidence of pulmonary edema. Evaluation of the mediastinum is limited due to rotation. No pneumothorax or significant pleural effusion is noted. XR/XR chest 1V IMPRESSION: No significant change from previous study with persistent right lung base disease.
--- NOTE | ~2022-05-15 | XR_ITS ---
EXAMINATION: XR CHEST CLINICAL INFORMATION: Tracheostomy COMPARISON: Chest x-ray 05/21/2022 TECHNIQUE: Frontal view of the chest was obtained. FINDINGS: Tracheostomy tube overlies the upper trachea at the level of sternal inlet. Persistent streaky/patchy right basilar opacity, presumably atelectasis. Slightly improved aeration at the left lung base in the interval. Indistinct lateral right costophrenic sulcus equivocal for trace right pleural effusion. No pneumothorax. Cardiomediastinal silhouette is unchanged. No evidence of pulmonary edema. No acute osseous injury identified. XR/XR chest 1V IMPRESSION: 1. Persistent streaky/patchy right basilar opacity, presumably atelectasis. Pneumonia or aspiration cannot be excluded in the appropriate clinical setting. 2. Slightly improved aeration at the left lung base. 3. Equivocal trace right pleural effusion.
--- NOTE | ~2022-05-15 | XR_ITS ---
EXAMINATION: XR chest 1V CLINICAL INFORMATION: NG tube repositioning. COMPARISON: 05/21/2022 TECHNIQUE: XR chest 1V Tubes and lines: Tracheostomy tube in place properly positioned the tip is approximately since 7 cm above kvng. Gastric tube passing below the diaphragm into the stomach the tip excluded from film margins. Lungs and pleura: Diminished right lung volume, linear opacity probably atelectasis, scar or fluid in the fissure projecting over the right middle lung zone. Left lung remain inflated. There is elevation of right hemidiaphragm. Heart and mediastinum: Mediastinum is widened however this is a stable unchanged.. Bones/soft tissue: Skeletal structures included are normal for patient's age. XR/XR chest 1V IMPRESSION: * Tracheostomy tube and gastric tube in place properly positioned. * Diminished right lung volume, linear opacity probably atelectasis, scar or fluid in the fissure projecting over the right middle lung zone. * Mediastinum is widened however this is a stable finding.
--- NOTE | ~2022-05-15 | XR_ITS ---
EXAMINATION: XR CHEST CLINICAL INFORMATION: Unspecified. COMPARISON: Chest radiograph 03/16/2022. TECHNIQUE: Frontal view of the chest was obtained. FINDINGS: New airspace opacities along the medial aspect of the right lung with rightward tracheal deviation and asymmetric elevation of the right hemidiaphragm. Tracheostomy tube noted. Increased prominence of the cardiomediastinal silhouette. The left lung is clear. No significant pleural effusion or pneumothorax. No acute osseous abnormalities. XR/XR chest 1V IMPRESSION: 1. New airspace opacities along the medial aspect of the right lung with rightward tracheal deviation and asymmetric elevation of the right hemidiaphragm. These findings are nonspecific and could be related in part with atelectasis given volume loss, however an underlying mass or pneumonia cannot be entirely excluded. Recommend further evaluation with a CT chest with IV contrast. 2. Increased prominence of the cardiomediastinal silhouette, nonspecific.
--- NOTE | ~2022-05-15 | XR_ITS ---
EXAMINATION: XR CHEST CLINICAL INFORMATION: Atelectasis, opacities versus edema. Follow-up. COMPARISON: Chest radiographs 05/25/2022, 05/21/2022, 05/19/2022 TECHNIQUE: Portable upright AP x2 views view of the chest are obtained on 05/27/2022. FINDINGS: There is mild caudad angulation of the x-ray on both views. Tracheostomy tube is in position. Right middle lobe atelectasis is decreased. The remainder the lungs are clear. There is no vascular congestion or interval airspace opacity or definite effusion. Heart is within limits of normal size. The hilar and mediastinal contours and bony structures are unremarkable. XR/XR chest 1V IMPRESSION: 1. Tracheostomy tube in position. 2. Right middle lobe atelectasis decreased. 3. No vascular congestion or infiltrate. No definite effusion.
[2022-05-15] MEDS: methylPREDNISolone Sod Succ 125 MG/2 ML VIAL IVPUSH (14:32)
[2022-05-15] MEDS: Famotidine/PF 20 MG/2 ML VIAL IVPUSH ×2 (14:32→20:05)
[2022-05-15] MEDS: EPINEPHrine 1 MG/ML VIAL 0.3 MG IM ×2 (14:32→15:00)
--- NOTE | 2022-05-15 14:32 | ECG_ITS ---
Test Reason : ALLERGIC REACTION Blood Pressure : / mmHG Vent. Rate : 067 BPM Atrial Rate : 067 BPM P-R Int : 180 ms QRS Dur : 088 ms QT Int : 406 ms P-R-T Axes : 063 063 049 degrees QTc Int : 429 ms Normal sinus rhythm Normal ECG When compared with ECG of 07-JAN-2021 02:05, Nonspecific T wave abnormality no longer evident in Inferior leads T wave amplitude has increased in Lateral leads Referred By: Olvin Naylor Electronically Signed By:Cameron Acosta
--- NOTE | 2022-05-15 14:36 | ED_ITS ---
HPI - Allergic Reaction General Chief complaint: Allergic Reaction Stated complaint: ?ALLERGIC RXN,TONGUE SWELLING PER EMS Time Seen by Provider: 05/15/22 14:25 Source: patient and EMS Mode of arrival: EMS Limitations: no limitations History of Present Illness HPI narrative: 56-year-old male with a history diabetes, obesity, KD, CAD, HTN, COPD, restrictive airway disease, thrombocytopenia, who presents to the ER for evaluation of significant tongue swelling that he noted an hour ago when he woke up from a nap. He states when he woke up early this morning he was feeling at his baseline. He went to take a nap around 11:00 o'clock after eating some pineapple from a can. He states he woke up at 1/130 with significant tongue swelling. He has never had anything like this before. He reports muffled voice and difficulty speaking. He denies any shortness of breath or difficulty breathing. No rashes. He is on lisinopril and has been on lisinopril for quite some time. He is also on aspirin. EMS was called, IV established and he was given 50 mg IV benadryl. MD complaint: allergic reaction and facial swelling Onset (ago): hour(s) (1) Exposure: medication Symptoms: tongue swelling Severity: severe Treatment prior to arrival: benadryl Previous Allergic Reaction History: none Related Data Home Medications Medication Instructions Recorded Confirmed insulin glargine 100 unit/mL (3 30 unit subcut DAILY 12/26/21 05/15/22 mL) subcutaneous pen (Lantus Solostar U-100 Insulin) aspirin 81 mg tablet,delayed 81 mg PO DAILY 03/17/22 05/15/22 release duloxetine 30 mg capsule,delayed 1 cap PO BID 03/17/22 05/15/22 release multivitamin 1 tab PO DAILY 03/17/22 05/15/22 oxycodone 5 mg tablet 1 tab PO DAILY PRN Moderate Pain 03/17/22 05/15/22 (Scale Score 5-6) pregabalin 200 mg capsule 1 cap PO TID 03/17/22 05/15/22 pyridoxine (vitamin B6) 50 mg 1 tab PO DAILY 03/17/22 05/15/22 tablet thiamine HCl (vitamin B1) 100 mg 1 tab PO DAILY 03/17/22 05/15/22 tablet (Vitamin B-1) Previous Rx's Medication Instructions Recorded atorvastatin 40 mg tablet 40 mg PO DAILY #90 tabs 02/04/22 folic acid 1 mg tablet 1 mg PO DAILY #30 tabs 03/07/22 carbamazepine 200 mg tablet 200 mg PO BEDTIME #30 tabs 03/19/22 FreeStyle Jeremy 2 [place] (flash #1 ea 04/02/22 glucose scanning reader) FreeStyle Jeremy 2 Sensor (flash #1 ea 04/02/22 glucose sensor) lisinopril 10 mg tablet 10 mg PO DAILY #90 tabs 04/18/22 metoprolol succinate 50 mg 100 mg PO DAILY 90 days #180 tabs 04/19/22 tablet,extended release 24 hr furosemide 20 mg tablet 20 mg PO DAILY 4 days #4 tabs 05/07/22 Allergies Allergy/AdvReac Type Severity Reaction Status Date / Time cyclobenzaprine Allergy Unknown RASH Verified 04/02/22 08:22 [From FLEXERIL] penicillin V Allergy Unknown anaphylaxis Verified 04/02/22 08:22 Review of Systems Review of Systems: Yes all other systems are reviewed and are negative [facility] Past Medical History Medical History CAD (coronary artery disease) Fatty liver Foot ulcer, left Fracture of right tibia and fibula History of colon polyps History of hepatitis C History of TIA (transient ischemic attack) HTN (hypertension) Insulin dependent type 2 diabetes mellitus Metatarsal bone fracture Nicotine dependence, cigarettes, uncomplicated Obesity KD (obstructive sleep apnea) Seizure disorder Surgical History History of cardiac catheterization (~2018) History of colonoscopy (~2018) History of hernia repair History of lumbar spinal fusion History of surgery on lower extremity (~2019) Family History Family History Father CVD (cardiovascular disease) Colon cancer Mother No problems noted. Brother Liver cancer Paternal Aunt Colon cancer Social History Social History Household Members: Spouse Household Members Other:: Housing: Apartment Do you presently have visiting nurse or other home services: No Alcohol intake: current Alcohol intake frequency: holidays/special occasions only Alcohol type: beer and hard liquor Patient Tobacco Use Status: Current everyday Tobacco user Tobacco use type: Cigarette Cigarette Packs Per Day: 1 Cigarettes Per Day: 20 Smoked in Last 30 Days: Yes Second Hand Smoke Exposure: Yes Substance Use Type: Marijuana Advance Directives: Yes Advance Directives Information Provided: No Advance Directives on File: Yes Advance Directives Date on File: 03/20/22 service: No Current occupational status: disabled Current occupation: right handed Cognitive needs: No Hearing needs: No Vision needs: No Physical Exam ED Vital Signs: Vital Signs - 24 hr 05/15/22 14:32 05/15/22 14:37 05/15/22 15:00 Temperature 97.4 F Pulse Rate 70 68 69 Respiratory Rate 12 Blood Pressure 142/80 H 142/80 H 161/73 H Pulse Oximetry 69 L Oxygen Delivery Method Room Air BMI result Body Mass Index 37.3 Appearance: Alert. Oriented X3. No respiratory distress Eyes: Mild periorbital edema. Pupils equal, round and reactive to light. ENT: Significant tongue swelling, severe sublingual swelling and fullness, dried blood on the lips, no lip swelling, muffled voice, no drooling. able to visual ize the base of the uvula only Neck: Fullness of the anterior neck, trachea midline, nontender CVS: Normal heart rate and rhythm. Pulses normal. Respiratory: No respiratory distress. Breath sounds normal. Abdomen: Obese, Soft and nontender. +BS x4 Skin: Skin warm and dry. Normal skin color. Normal skin turgor. No rashes. Extremities: No lower extremity edema. Neuro: Oriented X 3. No motor deficit. No sensory deficit. Course Course Course Narrative: 56-year-old male with history of hypertension on lisinopril who presents to the ER for evaluation of acute onset of significant tongue swelling started 13:30 today when he woke up from a nap. He reports difficulty speaking but no diffi culty breathing at this time. Saturating well on room air without accessory muscle use. IV immediately established and patient was given 125 mg of Solu- Medrol, Pepcid, IM epinephrine times to, TXA and FFP was ordered. Dr. Naylor at the bedside for airway evaluation. Dr. Torres TT for admission a nd airway monitoring. May require intubation. Reevaluation(s) Reevaluation #1: Topical lidocaine used to anesthetize the nares and posterior oropharynx. Difficult to visualize with our scope. Patient starting to have some noisy breathing, sublingual area appears michael. Meds ordered for an awake intubation. Anesthesia called to the bedside for difficult airway support. Reevaluation #2: Anesthesia at the bedside. Recommending intubation in the OR under more controlled environment with all of the emergent tracheostomy supplies available. Patient and family updated on plan of care. Reevaluation #3: Patient to go to OR for intubation. ICU for further care Consultations Consultation #1: Anesthesia Consultation #2: Dr. Torres Medications Administered Discontinued Medications Generic Name Dose Route Start Last Admin Trade Name Freq PRN Reason Stop Dose Admin Atropine Sulfate 0.5 mg 05/15/22 15:04 05/15/22 15:12 Atropine Sulfate 1 Mg/Ml Vial IVPUSH 05/15/22 15:05 0.5 mg ONCE ONE Administration Epinephrine 0.3 mg 05/15/22 14:26 05/15/22 14:32 Epinephrine 1 Mg/Ml Vial IM 05/15/22 14:27 0.3 mg STAT STA Administration Epinephrine 0.3 mg 05/15/22 15:00 05/15/22 15:00 Epinephrine 1 Mg/Ml Vial IM 05/15/22 15:41 0.3 mg Q20M JAMEEL Administration Famotidine 20 mg 05/15/22 14:26 05/15/22 14:32 Famotidine/Pf 20 Mg/2 Ml Vial IVPUSH 05/15/22 14:27 20 mg ONCE ONE Administration Tranexamic Acid 1,000 mg/ 60 mls @ 360 mls/hr 05/15/22 14:40 05/15/22 15:18 Sodium Chloride IV 05/15/22 14:49 Infused ONCE ONE Infusion Ketamine HCl 132 mg 05/15/22 15:02 05/15/22 15:35 Ketamine Hcl/Ns 50 Mg/5 Ml Syringe 1 mg/kg (132 mg) 05/15/22 15:03 Not Given IVPUSH ONCE ONE Lidocaine HCl 1 appl 05/15/22 14:44 05/15/22 15:05 Lidocaine Hcl 4 % [id number] 4 Ml TOPICAL 05/15/22 14:45 1 appl ONCE ONE Administration Lidocaine HCl 15 ml 05/15/22 14:56 05/15/22 15:45 Lidocaine Hcl Viscous 2 % 15 Ml Solution MUCOUS MEM 05/15/22 14:57 Not Given ONCE ONE Methylprednisolone Sodium Succinate 125 mg 05/15/22 14:26 05/15/22 14:32 Methylprednisolone Sod Succ 125 Mg/2 Ml Vial IVPUSH 05/15/22 14:27 125 mg ONCE ONE Administration Ondansetron HCl 4 mg 05/15/22 15:03 05/15/22 15:11 Ondansetron Hcl 4 Mg/2 Ml Vial IVPUSH 05/15/22 15:04 4 mg ONCE ONE Administration Propofol 132 mg 05/15/22 15:20 05/15/22 15:37 Propofol 200 Mg/20 Ml Vial 1 mg/kg (132 mg) 05/15/22 15:21 Not Given IVPUSH ONCE ONE Medical Decision Making Differential Diagnosis Differential Diagnoses: The differential diagnosis associated with the presentation includes angioedema, anaphylaxis, trauma Admission/Observation Consideration of admission/observation: Escalation of care including admission/observation considered Consult Healthcare Provider Management of the patient was discussed with: [employer] Instructor Lab Data MDM Lab Attestation statement: I reviewed the patient's lab results. 05/15/22 14:44 05/15/22 14:44 Labs: Lab Results 05/15/22 05/15/22 05/15/22 Range/Units 14:43 14:44 14:44 WBC 5.7 (4.8-10.8) X10*3/uL RBC 3.99 L (4.60-5.80) X10*6/uL Hgb 14.3 (14.0-18.0) g/dl Hct 42.8 (42.0-52.0) % MCV 107.3 H (80.0-98.0) fL MCH 35.8 H (27.0-33.0) pg MCHC 33.4 (31.0-36.0) g/dl RDW 15.4 (11.0-16.0) % Plt Count 120 L (160-400) X10*3/uL MPV 9.5 (9.4-12.4) fL Immature Gran % (Auto) 0.3 (0.0-0.4) % Neut % (Auto) 63.1 (45-73) % Lymph % (Auto) 23.1 (20-40) % [place] % (Auto) 10.7 (2-11) % Eos % (Auto) 2.1 (0-4) % Baso % (Auto) 0.7 (0-2) % Lymph # (Auto) 1.3 (1.2-4.9) X10*3/uL [place] # (Auto) 0.6 (0.1-1.2) X10*3/uL Eos # (Auto) 0.1 (0.0-0.4) X10*3/uL Baso # (Auto) 0.0 (0.0-0.2) X10*3/uL Abs Immat Gran (auto) 0.02 (0.00-0.03) X10*3/uL Absolute Neuts (auto) 3.6 (2.0-8.3) x10*3/uL Absolute Nucleated RBC 0.000 (0.0-0.012) X10*3/uL Nucleated RBC % (auto) 0.0 (0.0-0.2) /100WBC Sodium 138 (135-145) mmol/L Potassium 4.4 (3.3-5.1) mmol/L Chloride 99 (96-108) mmol/L Carbon Dioxide 26 (22-29) mmol/L Anion Gap 17 (12-20) BUN 8 L (9-16) mg/dL Creatinine 0.67 (0.5-1.4) mg/dL Estim Creat Clear Calc 173.5 Estimated GFR > 60 Random Glucose 124 H (60-115) mg/dL Calcium 8.4 D (8.4-10.2) mg/dL Magnesium 1.5 L (1.6-2.6) mg/dL Total Bilirubin 1.0 (0.0-1.0) mg/dL Direct Bilirubin 0.4 (0.0-0.5) mg/dL AST 53 H (5-37) U/L ALT 29 (0-40) U/L Alkaline Phosphatase 131 H (39-117) U/L Total Protein 6.5 (6.5-8.0) g/dL Albumin 3.2 L (3.5-5.0) g/dL COVID-19 ([facility]) (Negative) COVID-19 Clin Com Blood Type A Negative Antibody Screen NEGATIVE 05/15/22 Range/Units 14:44 WBC (4.8-10.8) X10*3/uL RBC (4.60-5.80) X10*6/uL Hgb (14.0-18.0) g/dl Hct (42.0-52.0) % MCV (80.0-98.0) fL MCH (27.0-33.0) pg MCHC (31.0-36.0) g/dl RDW (11.0-16.0) % Plt Count (160-400) X10*3/uL MPV (9.4-12.4) fL Immature Gran % (Auto) (0.0-0.4) % Neut % (Auto) (45-73) % Lymph % (Auto) (20-40) % [place] % (Auto) (2-11) % Eos % (Auto) (0-4) % Baso % (Auto) (0-2) % Lymph # (Auto) (1.2-4.9) X10*3/uL [place] # (Auto) (0.1-1.2) X10*3/uL Eos # (Auto) (0.0-0.4) X10*3/uL Baso # (Auto) (0.0-0.2) X10*3/uL Abs Immat Gran (auto) (0.00-0.03) X10*3/uL Absolute Neuts (auto) (2.0-8.3) x10*3/uL Absolute Nucleated RBC (0.0-0.012) X10*3/uL Nucleated RBC % (auto) (0.0-0.2) /100WBC Sodium (135-145) mmol/L Potassium (3.3-5.1) mmol/L Chloride (96-108) mmol/L Carbon Dioxide (22-29) mmol/L Anion Gap (12-20) BUN (9-16) mg/dL Creatinine (0.5-1.4) mg/dL Estim Creat Clear Calc Estimated GFR Random Glucose (60-115) mg/dL Calcium (8.4-10.2) mg/dL Magnesium (1.6-2.6) mg/dL Total Bilirubin (0.0-1.0) mg/dL Direct Bilirubin (0.0-0.5) mg/dL AST (5-37) U/L ALT (0-40) U/L Alkaline Phosphatase (39-117) U/L Total Protein (6.5-8.0) g/dL Albumin (3.5-5.0) g/dL COVID-19 ([facility]) Negative (Negative) COVID-19 Clin Com See Note Blood Type Antibody Screen Independent Interpretation I performed an independent interpretation of an: EKG Interpretation: ekg with normal sinus rhythm, ventricular rate 67 beats per minute, normal GA interval, normal QRS, no ST segment elevations or depressions. Slightly peaked T-waves in V4, V5, V6 Independent Historian Clinical information obtained from an independent historian. History obtained from or confirmed by: Spouse and EMS External Record Review External record reviewed: Outpatient record, Prior outpatient labs and Prior outpatient radiology Chronic Conditions Patient?s care impacted by: Hypertension and Other (obesity) Critical Care Time Critical Care Time Critical Care Time: Yes Total Critical Care Time: 45 Attestation: I have personally provided critical care time exclusive of time spent on separately billable procedures. Time includes review of lab data,frequent bedside monitoring and evaluation, discussion with consultants, and monitoring for potential decompensation. Intervention performed as documented. Discharge Plan Discharge Clinical Impression: Angioedema Patient Disposition: Admitted As Inpatient
--- NOTE | 2022-05-15 14:40 | PC.NURSE ---
patient a&ox3, iv inserted to rt ac, lift manager applied-nsr, labs drawn, vitals currently stable, pt able to speak in full sentences, pt noted to have significant tongue swelling, pt medicated per order, providers at bedside.
[2022-05-15 14:48] LABS: MANUAL DIFF FLAG NO
[2022-05-15 14:53] LABS: Basophils Percent Auto 0.7 % (0-2); Eosinophils Absolute Auto 0.1 X10*3/uL (0.0-0.4); Eosinophils Percent Auto 2.1 % (0-4); Hematocrit 42.8 % (42.0-52.0); Hemoglobin 14.3 g/dl (14.0-18.0); Imm Gran Abs Auto 0.02 X10*3/uL (0.00-0.03); Imm Gran Pct Auto 0.3 % (0.0-0.4); Lymphocytes Absolute Auto 1.3 X10*3/uL (1.2-4.9); Lymphocytes Percent Auto 23.1 % (20-40); Mean Corpuscular HGB Conc 33.4 g/dl (31.0-36.0); Mean Corpuscular Hemoglobin 35.8 pg (27.0-33.0); Mean Corpuscular Volume 107.3 fL (80.0-98.0); Mean Platelet Volume 9.5 fL (9.4-12.4); Monocytes Absolute Auto 0.6 X10*3/uL (0.1-1.2); Monocytes Percent Auto 10.7 % (2-11); Neutrophils Absolute Auto 3.6 x10*3/uL (2.0-8.3); Neutrophils Percent Auto 63.1 % (45-73); Platelet Count 120 X10*3/uL (160-400); Red Blood Count 3.99 X10*6/uL (4.60-5.80); Red Cell Distribution Width 15.4 % (11.0-16.0); White Blood Count 5.7 X10*3/uL (4.8-10.8)
[2022-05-15] MEDS: Lidocaine HCl 4 % Laryng-O-Jet 4 ML 1 APPL TOPICAL (15:05)
[2022-05-15 15:07] LABS: Alanine Aminotransferase 29 U/L (0-40); Albumin Level 3.2 g/dL (3.5-5.0); Alkaline Phosphatase 131 U/L (39-117); Anion Gap 17 (12-20); Aspartate Amino Transferase 53 U/L (5-37); Bilirubin Direct 0.4 mg/dL (0.0-0.5); Blood Urea Nitrogen 8 mg/dL (9-16); Calcium 8.4 mg/dL (8.4-10.2); Carbon Dioxide 26 mmol/L (22-29); Chloride 99 mmol/L (96-108); Creatinine Clr Calc Pharmacy 173.5; Estimated Glomerular Filt Rate > 60; Glucose Random 124 mg/dL (60-115); Magnesium 1.5 mg/dL (1.6-2.6); Potassium 4.4 mmol/L (3.3-5.1); Sodium 138 mmol/L (135-145); Total Protein 6.5 g/dL (6.5-8.0)
[2022-05-15] MEDS: Tranexamic Acid 1,000 MG in 0.9 % Sodium Chloride 50 ML 360 MG IV (15:07)
--- NOTE | 2022-05-15 15:10 | PC.NURSE ---
txa infusing per order
[2022-05-15] MEDS: ondansetron HCL 4 MG/2 ML VIAL IVPUSH (15:11)
[2022-05-15] MEDS: Atropine Sulfate 1 MG/ML VIAL 0.5 MG IVPUSH (15:12)
--- NOTE | 2022-05-15 15:15 | PC.NURSE ---
pt medicated per orders
[2022-05-15 15:16] LABS: COVID-19 Test Negative (Negative); IDNOW Serial# 9DB6401D
--- NOTE | 2022-05-15 15:37 | PC.NURSE ---
providers at bedside they were going to attempt intubation at bedside room 4, OR staff/physicians came to bedside. 200 mg propofol was drawn up and a second 200 mg bottle of propofol was removed from the pyxis per request of the OR staff. RSI kit was also obtained, two 100 mg succ was removed. The OR staff decided the patient needed to be intubated or trach in the OR. OR staff took the 200 mg propofol bottle and the 2 drawn up syringes of 200 mg, they also took the two 100 mg succ syringes from the RSI kit as well. PT was placed on the zoll monitor and moved to the OR by physican and OR nursing staff. prior to leaving patient was NSR 70s on monitor technician, vitals were stable, O2 sat was 96%, BP 143/78
--- NOTE | 2022-05-15 15:38 | PC.NURSE ---
Previous note written by Manuela Heath was authored by this nurse, due to patient complexity the graduate nurse was logged into the computer when this nurse had typed the note.
--- NOTE | 2022-05-15 16:19 | PM.EVENT ---
Event Note Date of Service: 05/15/22 Event Note: Called STAT Anesthesia to the Emergency Room. Upon quick arrival patient was sitting up in severe respiratory distress. As per the ER attending physician the patient was having an anaphylactic reaction with airway closure. Upon examination vitals and patient had huge tongue sticking out of his mouth. He was grunting and whistling such as when an airway is closing. Surgery was there and after collaberation with the surgical team( Dr. Jarrett) we decided that it was in the best interest of the patient to move immediately to the operating room. Upon arrival to O. R. room 6 patient started turning blue. At this point an emergency tracheostomy was necessary to preserve life. The patient never lost his pulse during this time confirmed by another anesthesiolgist present. Airway obtained and ventilated/oxygenated with vital signs all within normal limits. Patient will be transferred to ICU. Thank You Time Spent With Patient Time: Total time managing care of this patient today 90____ minutes.
--- NOTE | 2022-05-15 16:21 | P.HPCC_ITS ---
History of Present Illness Date of Service: 05/15/22 Attending physician on admission: Jasbir Torres Chief Complaint: severe swelling of his tongue with inability to swallow and changing voice 56-year-old moderately obese male with obstructive sleep apnea alcohol abuse hypertensive and hyperlipidemic with type 2 diabetes mellitus who happens to be on lisinopril but the all of a sudden developed swelling of his tongue and in the submandibular space and noticed that he was having progressive trouble with swallowing in and his voice being altered and came to the emergency room and was getting progressively worse despite receiving in steroids and antihistamines and and decision was made to intubate him under direct visualization in the operating room with standby tracheostomy and Cardiothoracic surgery and sure enough he just turned blue all of a sudden stop breathing in an emergency tracheostomy was performed without complication postoperatively he had a seizure which responded to a total of 6 mg of IV Versed and IV propofol and is currently on the ventilator sedated with a a Shiley tracheostomy tube that was just done and will cover him postoperatively with vancomycin because he has got penicillin allergy shortly thereafter and he became hypoxemic 83% saturation and a stat repeat chest x-ray revealed what looked like negative pressure pulmonary edema there was no blood there was nothing there for him to aspirate and I gave him 20 mg of Lasix aggressive albuterol treatments and being that there was no improvement on an increased PEEP level of 10 on IV dropped his PEEP down to 0 for the sake of his blood pressure his hypoxia began to slowly resolve and he did still require a small dose of phenylephrine but he remained stable throughout the night this morning was down to an FiO2 of 85% Review of Systems Review of Systems: Yes all other systems are reviewed and are negative [facility] Past Medical History Medical History CAD (coronary artery disease) Fatty liver Foot ulcer, left Fracture of right tibia and fibula History of colon polyps History of hepatitis C History of TIA (transient ischemic attack) HTN (hypertension) Insulin dependent type 2 diabetes mellitus Metatarsal bone fracture Nicotine dependence, cigarettes, uncomplicated Obesity KD (obstructive sleep apnea) Seizure disorder Family History Family History Father CVD (cardiovascular disease) Colon cancer Mother No problems noted. Brother Liver cancer Paternal Aunt Colon cancer Surgical History Surgical History History of cardiac catheterization (~2018) History of colonoscopy (~2018) History of hernia repair History of lumbar spinal fusion History of surgery on lower extremity (~2019) Social History Social History Household Members: Unknown / Unable to assess Household Members Other:: Housing: Unknown / Unable to assess Do you presently have visiting nurse or other home services: No Unable to assess alcohol history related to: Unknown Alcohol intake: current Alcohol intake frequency: holidays/special occasions only Alcohol type: beer and hard liquor Patient Tobacco Use Status: Tobacco use Unknown Tobacco use type: Cigarette Cigarette Packs Per Day: 1 Cigarettes Per Day: 20 Smoked in Last 30 Days: Yes Second Hand Smoke Exposure: Yes Use of substances other than those prescribed or required for medical reasons: Unknown Substance Use Type: Marijuana Currently Displaying Signs/Symptoms of Drug Intoxication Withdrawal: No Spiritual Healthcare Practices: unable to assess Adventism Healthcare Practices: unable to assess Cultural Healthcare Practices: unable to assess Advance Directives: Yes Advance Directives Information Provided: No Advance Directives on File: Yes Advance Directives Date on File: 03/20/22 Recently lost weight without trying: Unsure How much weight loss: Unsure service: No Current occupational status: disabled Current occupation: right handed Cognitive needs: No Hearing needs: No Vision needs: No Meds Allergies Allergy/AdvReac Type Severity Reaction Status Date / Time cyclobenzaprine Allergy Unknown RASH Verified 04/02/22 08:22 [From FLEXERIL] penicillin V Allergy Unknown anaphylaxis Verified 04/02/22 08:22 Active Medications: Current Medications Chlorhexidine Gluconate (Chlorhexidine Gluc Oral Rinse 15 Ml Mouthwash) 15 ml BUCCAL Q8H JAMEEL Dextrose (Dextrose 50 % 25 Gm/50 Ml Syringe) 25 gm IVPUSH Q15M PRN; Protocol PRN Reason: per Hypoglycemia Standing Ord. Famotidine (Famotidine/Pf 20 Mg/2 Ml Vial) 20 mg IVPUSH BID JAMEEL Glucose (Glucose Gel 15 Gm Gel..Gram.) 15 gm PO Q15M PRN; Protocol PRN Reason: per Hypoglycemia Standing Ord. Heparin Sodium (Porcine) (Heparin Sodium,Porcine 5,000 Unit/Ml Vial) 5,000 unit SUBCUT Q8H JAMEEL Lactated Ringer's (Lr) 1,000 mls @ 100 mls/hr IVCONT .Q10H JAMEEL Propofol (Diprivan) 1,000 mg in 100 mls @ 0 mls/hr IVCONT .Q0M JAMEEL; Protocol Insulin Human Lispro (Insulin Lispro 100 Unit/Ml 3 Ml Vial) 0 unit SUBCUT Q6H JAMEEL; Protocol Stop: 05/16/22 16:19 Home Medications Medication Instructions Recorded Confirmed Last Taken Type insulin glargine 100 unit/mL (3 30 unit subcut DAILY 12/26/21 05/15/22 05/15/22 History mL) subcutaneous pen (Lantus Solostar U-100 Insulin) aspirin 81 mg tablet,delayed 81 mg PO DAILY 03/17/22 05/15/22 05/15/22 History release duloxetine 30 mg capsule,delayed 1 cap PO BID 03/17/22 05/15/22 05/15/22 History release multivitamin 1 tab PO DAILY 03/17/22 05/15/22 05/15/22 History oxycodone 5 mg tablet 1 tab PO DAILY PRN Moderate Pain 03/17/22 05/15/22 Unknown History (Scale Score 5-6) pregabalin 200 mg capsule 1 cap PO TID 03/17/22 05/15/22 05/15/22 History pyridoxine (vitamin B6) 50 mg 1 tab PO DAILY 03/17/22 05/15/22 05/15/22 History tablet thiamine HCl (vitamin B1) 100 mg 1 tab PO DAILY 03/17/22 05/15/22 05/15/22 History tablet (Vitamin B-1) Physical Exam Vital Signs: Vital Signs: Last Vital Signs Temp 97.4 F 05/15/22 14:37 Pulse 69 05/15/22 15:00 Resp 12 05/15/22 14:37 BP 161/73 H 05/15/22 15:00 Pulse Ox 69 L 05/15/22 14:37 O2 Del Method 05/15/22 14:37 BMI result Body Mass Index 37.3 he had 1 seizure no recurrences since then but of course he was sedated with propofol and p.r.n. Versed the it significantly decreased bilateral breath sounds but good chest expansion and and with comfortable peak airway pressures he was accepting his 500 cc tidal volume bedside echo showed mild concentric left ventricular hypertrophy with globally normal systolic wall motion and normal right ventricular function and no primary valve or pericardial disease Results Labs 05/15/22 14:44 05/15/22 14:44 Labs: Laboratory Results - last 24 hr 05/15/22 05/15/22 05/15/22 14:43 14:44 14:44 MCV 107.3 H MCH 35.8 H MCHC 33.4 RDW 15.4 Plt Count 120 L MPV 9.5 Immature Gran % (Auto) 0.3 Neut % (Auto) 63.1 Lymph % (Auto) 23.1 Doddridge % (Auto) 10.7 Eos % (Auto) 2.1 Baso % (Auto) 0.7 Lymph # (Auto) 1.3 Doddridge # (Auto) 0.6 Eos # (Auto) 0.1 Baso # (Auto) 0.0 Abs Immat Gran (auto) 0.02 Absolute Neuts (auto) 3.6 Absolute Nucleated RBC 0.000 Nucleated RBC % (auto) 0.0 Anion Gap 17 Estim Creat Clear Calc 173.5 Estimated GFR > 60 Random Glucose 124 H Calcium 8.4 D Magnesium 1.5 L Total Bilirubin 1.0 Direct Bilirubin 0.4 AST 53 H ALT 29 Alkaline Phosphatase 131 H Total Protein 6.5 Albumin 3.2 L COVID-19 (KARLA) COVID-Tauntr Blood Type A Negative Antibody Screen NEGATIVE 05/15/22 14:44 MCV MCH MCHC RDW Plt Count MPV Immature Gran % (Auto) Neut % (Auto) Lymph % (Auto) Doddridge % (Auto) Eos % (Auto) Baso % (Auto) Lymph # (Auto) Doddridge # (Auto) Eos # (Auto) Baso # (Auto) Abs Immat Gran (auto) Absolute Neuts (auto) Absolute Nucleated RBC Nucleated RBC % (auto) Anion Gap Estim Creat Clear Calc Estimated GFR Random Glucose Calcium Magnesium Total Bilirubin Direct Bilirubin AST ALT Alkaline Phosphatase Total Protein Albumin COVID-19 (KARLA) Negative COVID-Tauntr See Note Blood Type Antibody Screen Assessment and Plan (1) Status post tracheostomy: Status: Acute (2) Angioedema: Status: Acute (3) Syncope: Status: Acute (4) ETOH abuse: Status: Acute (5) Morbid obesity: Status: Acute (6) KD (obstructive sleep apnea): Status: Acute (7) Insulin dependent type 2 diabetes mellitus: Status: Acute (8) Diabetic neuropathy: Status: Acute (9) CAD (coronary artery disease): Status: Acute (10) HTN (hypertension): Status: Acute (11) COPD (chronic obstructive pulmonary disease): Status: Acute (12) Restrictive airway disease: Status: Acute (13) Nicotine dependence, cigarettes, uncomplicated: Status: Acute (14) Acute hypoxemic respiratory failure: Status: Acute (15) Acute non-cardiogenic pulmonary edema: Status: Acute Plan so the plan is to maintain ventilator support and Lasix 20 mg x 1 was given probably do a sedation vacation in the morning to evaluate mental status and of course observe for potential withdrawal symptomatology Time Spent With Patient Time: Total time managing care of this patient today _75___ minutes.
--- NOTE | 2022-05-15 16:36 | PHA.MEDREC ---
Pharmacy Consult ? Medication Reconciliation Pharmacy has completed the medication reconciliation.
[2022-05-15] MEDS: propofoL 1,000 MG/100 ML VIAL 23.76 MG IVCONT (16:45)
[2022-05-15] MEDS: Lactated Ringers 1,000 ML 100 ML IVCONT (17:14)
[2022-05-15 17:28] LABS: Glucose, Whole Blood 198 mg/dL (60-115)
[2022-05-15] MEDS: Chlorhexidine Gluc Oral Rinse 15 ML MOUTHWASH BUCCAL (17:35)
[2022-05-15] MEDS: methylPREDNISolone Sod Succ 40 MG/ML VIAL IVPUSH ×2 (17:35→21:30)
[2022-05-15] MEDS: Insulin Lispro 100 UNIT/ML 3 ML VIAL SUBCUT ×2 (17:35→23:14)
[2022-05-15] MEDS: Heparin Sodium,Porcine 5,000 UNIT/ML VIAL 5000 UNIT SUBCUT (17:35)
[2022-05-15 17:53] LABS: Appearance Urine Clear; Color Urine Yellow; Glucose Urine UA Negative (Negative); Leukocyte Esterase Urine Negative (Negative); Nitrite Urine Negative (Negative); UMIC TRIGGER UACC YES; Urine Blood Negative (Negative); Urine Ketones Negative (Negative); Urine Protein 100 (2+) mg/dL (Neg-Trace)
[2022-05-15 18:00] LABS: Bacteria Urine None Seen (None Seen); Hyaline Casts Urine 0-2 /LPF (0-2); RBC Urine 0-2 /HPF (0-2); Squamous Epithelial Cell Urine 0-2 /HPF (0-2); WBC Urine 0-5 /HPF (0-5)
--- NOTE | 2022-05-15 18:03 | PC.RT ---
Pt was admitted to ICU post emergent tracheostomy placement in the OR. Pt was placed on mech ventilation per order and kenna well. Pt has 8.0 shiley cuffed with reusable inner cannula. A spare shiley 8 withj disposable inner cannula was placed at the bedside as well as the original obturator. RN/MD aware.
[2022-05-15 18:04] LABS: Amphetamine Screen Urine Not Detected (Not Detect); Barbiturates, Urine Not Detected (Not Detect); Benzodiazepines Screen Urine POSITIVE (Not Detect); Cannabinoid Screen Urine POSITIVE (Not Detect); Cocaine Screen Urine Not Detected (Not Detect); Fentanyl, urine Not Detected (Not Detect); Opiate Screen Urine Not Detected (Not Detect); Phencyclidine Screen Urine Not Detected (Not Detect)
--- NOTE | 2022-05-15 18:25 | PC.NURSE ---
Addendum entered by Lisa Arnold RN 05/15/22 19:12: O2 sat maintaining 82% on 100% Fio2. Cxr completed. LR stopped per MD and Lasix 20mg IVP ordered and administered. RT at bedside with treatment d/t new auscultated wheeze bilateral. MAP maintaining <65 - Chirag gtt started and titrated per EMAR. Map now maintaining >65, Fio2 87% post treatment and lasix. Handoff given to oncoming RN. Original Note: Patient arrived to ICU via bed from OR at 1630. Patient unarousable, started on Propofol gtt for continued sedation. Pupils 3mm PERRLA. Unable to assess cough and gag. Agitated with noxious stimuli. Sinus on monitor, MAP maintaining >65. Second PRN angio obtained. 3+ edema to bilateral pedal. LS dim throughout, #8 Shiley trach with reusable inner cannula. Tolerating vent, current settings AC 16/500/8/60%, Fio2 maintaining 88-90%, CXR and VBGs ordered. Completed two units of FFP without complications. Vanco 2g IV administering. Sanguinous output ozzing from trach site - okay to administer heparin per MD. Pneumatic devices in place. Abdomen large, soft, positive bowl sounds, unknown last BM. Cole inserted for fluid management and accurate I&Os, urine concentrated approx 30-50cc/hr. UA and Tox obtained and pending. Patient bathed, no skin integrity concerns, Prevlon system in place and patient on turning bed.
[2022-05-15] MEDS: Midazolam HCl/PF 2 MG/2 ML VIAL 3 MG IVPUSH (18:45)
[2022-05-15] MEDS: propofoL 1,000 MG/100 ML VIAL 39.6 MG IVCONT ×3 (19:00→23:14)
[2022-05-15] MEDS: Furosemide 20 MG/2 ML VIAL IVPUSH (19:01)
[2022-05-15] MEDS: Phenylephrine HCL 20 MG in 0.9 % Sodium Chloride 250 ML 49.9 MG IVCONT (19:06)
[2022-05-15 19:32] LABS: Venous Blood Gas Refer to POC result
[2022-05-15 19:34] LABS: VBG Base Excess 2.7 mmol/L; VBG HCO3 25 mmol/L (22-26); VBG pCO2 33 mmHg; VBG pH 7.48 (7.32-7.43); VBG pO2 106 mmHg
[2022-05-15 19:46] LABS: Ethanol < 10 mg/dL
[2022-05-15 19:57] LABS: Glucose, Whole Blood 239 mg/dL (60-115)
[2022-05-15 23:13] LABS: Glucose, Whole Blood 245 mg/dL (60-115)
[2022-05-16] VITALS (33 sets, daily range): BP systolic 88–131; BP diastolic 54–87; PULSE 62–94; RESP 9–18; TEMP 34.9–36.7; O2SAT 90–100; BMI 44.3
[2022-05-16] MEDS: Chlorhexidine Gluc Oral Rinse 15 ML MOUTHWASH BUCCAL ×3 (00:56→16:36)
[2022-05-16] MEDS: propofoL 1,000 MG/100 ML VIAL 39.6 MG IVCONT ×11 (01:21→23:04)
[2022-05-16] MEDS: Midazolam HCl/PF 2 MG/2 ML VIAL 3 MG IVPUSH ×4 (02:37→17:46)
[2022-05-16] MEDS: methylPREDNISolone Sod Succ 40 MG/ML VIAL IVPUSH ×4 (04:48→23:03)
[2022-05-16 05:12] LABS: VBG Base Excess 9.2 mmol/L; VBG HCO3 32 mmol/L (22-26); VBG pCO2 36 mmHg; VBG pH 7.54 (7.32-7.43); VBG pO2 66 mmHg
[2022-05-16 05:19] LABS: Venous Blood Gas Refer to POC result
[2022-05-16 05:19] LABS: MANUAL DIFF FLAG NO
[2022-05-16 05:23] LABS: Glucose, Whole Blood 180 mg/dL (60-115)
[2022-05-16 05:23] LABS: Basophils Percent Auto 0.2 % (0-2); Eosinophils Percent Auto 0.2 % (0-4); Hematocrit 40.3 % (42.0-52.0); Hemoglobin 13.7 g/dl (14.0-18.0); Imm Gran Abs Auto 0.02 X10*3/uL (0.00-0.03); Imm Gran Pct Auto 0.4 % (0.0-0.4); Lymphocytes Absolute Auto 0.7 X10*3/uL (1.2-4.9); Lymphocytes Percent Auto 12.9 % (20-40); Mean Corpuscular Hemoglobin 36.3 pg (27.0-33.0); Mean Corpuscular Volume 106.9 fL (80.0-98.0); Mean Platelet Volume 10.2 fL (9.4-12.4); Monocytes Absolute Auto 0.5 X10*3/uL (0.1-1.2); Neutrophils Percent Auto 77.3 % (45-73); Platelet Count 133 X10*3/uL (160-400); Red Blood Count 3.77 X10*6/uL (4.60-5.80); Red Cell Distribution Width 15.7 % (11.0-16.0); White Blood Count 5.2 X10*3/uL (4.8-10.8)
[2022-05-16 05:40] LABS: Anion Gap 17 (12-20); Blood Urea Nitrogen 11 mg/dL (9-16); Carbon Dioxide 27 mmol/L (22-29); Chloride 99 mmol/L (96-108); Creatinine Clr Calc Pharmacy 163.5; Estimated Glomerular Filt Rate > 60; Glucose Random 167 mg/dL (60-115); Magnesium 1.5 mg/dL (1.6-2.6); Phosphorus 4.1 mg/dL (2.7-4.5); Potassium 4.5 mmol/L (3.3-5.1); Sodium 138 mmol/L (135-145)
[2022-05-16 07:12] LABS: Glucose, Whole Blood 170 mg/dL (60-115)
--- NOTE | 2022-05-16 08:12 | P.PNGS_ITS ---
Subjective Subjective Date of Service: 05/16/22 Interval history: On vent, sedated. On pressor and solu-medrol. Physical Exam Vital Signs: Vital Signs: Last Vital Signs Temp 98.1 F 05/16/22 07:00 Pulse 74 05/16/22 08:00 Resp 18 05/16/22 08:00 BP 105/72 05/16/22 08:00 Pulse Ox 93 05/16/22 08:00 O2 Del Method Trach Collar 05/16/22 08:00 FiO2 85 05/16/22 08:00 BMI result Body Mass Index 44.3 Const: General: no acute distress Neck: Other: trach in place, stay sutures intact; site clean Skin: General skin exam: no rashes or lesions noted Extrem: General: Yes no clubbing, cyanosis or edema Objective Data Active Medications Albuterol Sulfate (Albuterol Sulfate (0.083%) 2.5 Mg/3 Ml Vial.Neb) 5 mg INHALE Q20M PRN PRN Reason: Dyspnea Chlorhexidine Gluconate (Chlorhexidine Gluc Oral Rinse 15 Ml Mouthwash) 15 ml BUCCAL Q8H [facility] Last Admin: 05/16/22 00:56 Dose: 15 ml Documented By: SHABNAM Dextrose (Dextrose 50 % 25 Gm/50 Ml Syringe) 25 gm IVPUSH Q15M PRN; Protocol PRN Reason: per Hypoglycemia Standing Ord. Famotidine (Famotidine/Pf 20 Mg/2 Ml Vial) 20 mg IVPUSH BID [facility] Last Admin: 05/15/22 20:05 Dose: 20 mg Documented By: SHABNAM Glucose (Glucose Gel 15 Gm Gel..Gram.) 15 gm PO Q15M PRN; Protocol PRN Reason: per Hypoglycemia Standing Ord. Heparin Sodium (Porcine) (Heparin Sodium,Porcine 5,000 Unit/Ml Vial) 5,000 unit SUBCUT Q8H [facility] Last Admin: 05/16/22 08:00 Dose: Not Given Documented By: CARA Non-Admin Reason: Physician Held Med Propofol (Diprivan) 1,000 mg in 100 mls @ 0 mls/hr IVCONT .Q0M [facility]; Protocol Last Admin: 05/16/22 06:15 Dose: 50 mcg/kg/min, 39.6 mls/hr Documented By: SHABNAM Phenylephrine HCl 20 mg/ (Sodium Chloride) 252 mls @ 0 mls/hr IVCONT .Q0M JAMEEL; Protocol Last Titration: 05/16/22 04:31 Dose: 0 mcg/kg/min, 0 mls/hr Documented By: SHABNAM Insulin Human Lispro (Insulin Lispro 100 Unit/Ml 3 Ml Vial) 0 unit SUBCUT Q6H JAMEEL; Protocol Stop: 05/16/22 17:59 Last Admin: 05/16/22 05:31 Dose: Not Given Documented By: SHABNAM Non-Admin Reason: NPO Methylprednisolone Sodium Succinate (Methylprednisolone Sod Succ 40 Mg/Ml Vial) 40 mg IVPUSH Q6H JAMEEL Last Admin: 05/16/22 04:48 Dose: 40 mg Documented By: SHABNAM Midazolam HCl (Midazolam Hcl/Pf 2 Mg/2 Ml Vial) 3 mg IVPUSH RQ4H PRN PRN Reason: Ventilator synchrony Last Admin: 05/16/22 06:42 Dose: 3 mg Documented By: SHABNAM Labs 05/16/22 05:03 05/16/22 05:03 Labs: Laboratory Results - last 24 hr 05/15/22 05/15/22 05/15/22 14:43 14:44 14:44 MCV 107.3 H MCH 35.8 H MCHC 33.4 RDW 15.4 Plt Count 120 L MPV 9.5 Immature Gran % (Auto) 0.3 Neut % (Auto) 63.1 Lymph % (Auto) 23.1 Bertie % (Auto) 10.7 Eos % (Auto) 2.1 Baso % (Auto) 0.7 Lymph # (Auto) 1.3 Bertie # (Auto) 0.6 Eos # (Auto) 0.1 Baso # (Auto) 0.0 Abs Immat Gran (auto) 0.02 Absolute Neuts (auto) 3.6 Absolute Nucleated RBC 0.000 Nucleated RBC % (auto) 0.0 VBG pH VBG pCO2 VBG pO2 VBG HCO3 VBG O2 Saturation VBG Base Excess Anion Gap 17 Estim Creat Clear Calc 173.5 Estimated GFR > 60 POC Glucose Random Glucose 124 H Calcium 8.4 D Phosphorus Magnesium 1.5 L Total Bilirubin 1.0 Direct Bilirubin 0.4 AST 53 H ALT 29 Alkaline Phosphatase 131 H Total Protein 6.5 Albumin 3.2 L Urine Color Urine Appearance Urine pH Ur Specific [place] Urine Protein Urine Glucose (UA) Urine Ketones Urine Blood Urine Nitrite Ur Leukocyte Esterase Urine RBC Urine WBC Ur Squamous Epith Cells Urine Bacteria Hyaline Casts Urine Opiates Screen Urine Fentanyl Screen Ur Barbiturates Screen Ur Phencyclidine Scrn Ur Amphetamines Screen U Benzodiazepines Scrn Urine Cocaine Screen U Marijuana (THC) Screen Ethyl Alcohol COVID-19 ([facility]) COVID-19 Clin Com Blood Type A Negative Antibody Screen NEGATIVE 05/15/22 05/15/22 05/15/22 14:44 17:20 17:23 MCV MCH MCHC RDW Plt Count MPV Immature Gran % (Auto) Neut % (Auto) Lymph % (Auto) Bertie % (Auto) Eos % (Auto) Baso % (Auto) Lymph # (Auto) Bertie # (Auto) Eos # (Auto) Baso # (Auto) Abs Immat Gran (auto) Absolute Neuts (auto) Absolute Nucleated RBC Nucleated RBC % (auto) VBG pH VBG pCO2 VBG pO2 VBG HCO3 VBG O2 Saturation VBG Base Excess Anion Gap Estim Creat Clear Calc Estimated GFR POC Glucose 198 H Random Glucose Calcium Phosphorus Magnesium Total Bilirubin Direct Bilirubin AST ALT Alkaline Phosphatase Total Protein Albumin Urine Color Urine Appearance Urine pH Ur Specific [place] Urine Protein Urine Glucose (UA) Urine Ketones Urine Blood Urine Nitrite Ur Leukocyte Esterase Urine RBC Urine WBC Ur Squamous Epith Cells Urine Bacteria Hyaline Casts Urine Opiates Screen Not Detected Urine Fentanyl Screen Not Detected Ur Barbiturates Screen Not Detected Ur Phencyclidine Scrn Not Detected Ur Amphetamines Screen Not Detected U Benzodiazepines Scrn POSITIVE H Urine Cocaine Screen Not Detected U Marijuana (THC) Screen POSITIVE H Ethyl Alcohol COVID-19 ([facility]) Negative COVID-19 Clin Com See Note Blood Type Antibody Screen 05/15/22 05/15/22 05/15/22 17:23 19:20 19:27 MCV MCH MCHC RDW Plt Count MPV Immature Gran % (Auto) Neut % (Auto) Lymph % (Auto) Bertie % (Auto) Eos % (Auto) Baso % (Auto) Lymph # (Auto) Bertie # (Auto) Eos # (Auto) Baso # (Auto) Abs Immat Gran (auto) Absolute Neuts (auto) Absolute Nucleated RBC Nucleated RBC % (auto) VBG pH 7.48 H VBG pCO2 33 VBG pO2 106 VBG HCO3 25 VBG O2 Saturation 100.0 VBG Base Excess 2.7 Anion Gap Estim Creat Clear Calc Estimated GFR POC Glucose Random Glucose Calcium Phosphorus Magnesium Total Bilirubin Direct Bilirubin AST ALT Alkaline Phosphatase Total Protein Albumin Urine Color Yellow Urine Appearance Clear Urine pH 6.0 Ur Specific [place] 1.010 Urine Protein 100 (2+) H Urine Glucose (UA) Negative Urine Ketones Negative Urine Blood Negative Urine Nitrite Negative Ur Leukocyte Esterase Negative Urine RBC 0-2 Urine WBC 0-5 Ur Squamous Epith Cells 0-2 Urine Bacteria None Seen Hyaline Casts 0-2 Urine Opiates Screen Urine Fentanyl Screen Ur Barbiturates Screen Ur Phencyclidine Scrn Ur Amphetamines Screen U Benzodiazepines Scrn Urine Cocaine Screen U Marijuana (THC) Screen Ethyl Alcohol < 10 COVID-19 ([facility]) COVID-19 [employer] Com Blood Type Antibody Screen 05/15/22 05/15/22 05/16/22 19:54 23:08 05:03 MCV 106.9 H MCH 36.3 H MCHC 34.0 RDW 15.7 Plt Count 133 L MPV 10.2 Immature Gran % (Auto) 0.4 Neut % (Auto) 77.3 H Lymph % (Auto) 12.9 L Bertie % (Auto) 9.0 Eos % (Auto) 0.2 Baso % (Auto) 0.2 Lymph # (Auto) 0.7 L Bertie # (Auto) 0.5 Eos # (Auto) 0.0 Baso # (Auto) 0.0 Abs Immat Gran (auto) 0.02 Absolute Neuts (auto) 4.0 Absolute Nucleated RBC 0.000 Nucleated RBC % (auto) 0.0 VBG pH VBG pCO2 VBG pO2 VBG HCO3 VBG O2 Saturation VBG Base Excess Anion Gap Estim Creat Clear Calc Estimated GFR POC Glucose 239 H 245 H Random Glucose Calcium Phosphorus Magnesium Total Bilirubin Direct Bilirubin AST ALT Alkaline Phosphatase Total Protein Albumin Urine Color Urine Appearance Urine pH Ur Specific [place] Urine Protein Urine Glucose (UA) Urine Ketones Urine Blood Urine Nitrite Ur Leukocyte Esterase Urine RBC Urine WBC Ur Squamous Epith Cells Urine Bacteria Hyaline Casts Urine Opiates Screen Urine Fentanyl Screen Ur Barbiturates Screen Ur Phencyclidine Scrn Ur Amphetamines Screen U Benzodiazepines Scrn Urine Cocaine Screen U Marijuana (THC) Screen Ethyl Alcohol COVID-19 ([facility]) COVID-19 [employer] Com Blood Type Antibody Screen 05/16/22 05/16/22 05/16/22 05:03 05:04 05:17 MCV MCH MCHC RDW Plt Count MPV Immature Gran % (Auto) Neut % (Auto) Lymph % (Auto) Bertie % (Auto) Eos % (Auto) Baso % (Auto) Lymph # (Auto) Bertie # (Auto) Eos # (Auto) Baso # (Auto) Abs Immat Gran (auto) Absolute Neuts (auto) Absolute Nucleated RBC Nucleated RBC % (auto) VBG pH 7.54 H VBG pCO2 36 VBG pO2 66 VBG HCO3 32 H VBG O2 Saturation 92.0 VBG Base Excess 9.2 Anion Gap 17 Estim Creat Clear Calc 163.5 Estimated GFR > 60 POC Glucose 180 H Random Glucose 167 H Calcium 8.0 L Phosphorus 4.1 Magnesium 1.5 L Total Bilirubin Direct Bilirubin AST ALT Alkaline Phosphatase Total Protein Albumin 3.0 L Urine Color Urine Appearance Urine pH Ur Specific [place] Urine Protein Urine Glucose (UA) Urine Ketones Urine Blood Urine Nitrite Ur Leukocyte Esterase Urine RBC Urine WBC Ur Squamous Epith Cells Urine Bacteria Hyaline Casts Urine Opiates Screen Urine Fentanyl Screen Ur Barbiturates Screen Ur Phencyclidine Scrn Ur Amphetamines Screen U Benzodiazepines Scrn Urine Cocaine Screen U Marijuana (THC) Screen Ethyl Alcohol COVID-19 ([facility]) COVID-19 [employer] Com Blood Type Antibody Screen 05/16/22 07:10 MCV MCH MCHC RDW Plt Count MPV Immature Gran % (Auto) Neut % (Auto) Lymph % (Auto) Bertie % (Auto) Eos % (Auto) Baso % (Auto) Lymph # (Auto) Bertie # (Auto) Eos # (Auto) Baso # (Auto) Abs Immat Gran (auto) Absolute Neuts (auto) Absolute Nucleated RBC Nucleated RBC % (auto) VBG pH VBG pCO2 VBG pO2 VBG HCO3 VBG O2 Saturation VBG Base Excess Anion Gap Estim Creat Clear Calc Estimated GFR POC Glucose 170 H Random Glucose Calcium Phosphorus Magnesium Total Bilirubin Direct Bilirubin AST ALT Alkaline Phosphatase Total Protein Albumin Urine Color Urine Appearance Urine pH Ur Specific [place] Urine Protein Urine Glucose (UA) Urine Ketones Urine Blood Urine Nitrite Ur Leukocyte Esterase Urine RBC Urine WBC Ur Squamous Epith Cells Urine Bacteria Hyaline Casts Urine Opiates Screen Urine Fentanyl Screen Ur Barbiturates Screen Ur Phencyclidine Scrn Ur Amphetamines Screen U Benzodiazepines Scrn Urine Cocaine Screen U Marijuana (THC) Screen Ethyl Alcohol COVID-19 ([facility]) COVID-19 [employer] Com Blood Type Antibody Screen Procedures Date of Service Date of Service: 05/16/22 Progress Note: A&P Assessment and plan (1) Angioedema: Status: Acute (2) Status post tracheostomy: Status: Acute Plan 56 year old male who underwent emergent tracheostomy yesterday for angioedema, respiratory distress and airway loss secondary to anaphylaxis. Shiley [address] He is on vent, sedated in ICU. Trach in place and site clean. O2 sats low 90s. No acute surgical issues. Remainder of care per ICU team. Time Spent With Patient Time: Total time managing care of this patient today ____ minutes. Quality Stroke Does the patient have a stroke diagnosis?: No VTE Prior VTE?: No VTE Risk Level:: Medical - moderate - high VTE Device Contraindication: N/A - Device Ordered VTE Drug Contraindication: N/A - Med Ordered
[2022-05-16] MEDS: Famotidine/PF 20 MG/2 ML VIAL IVPUSH ×2 (08:49→20:10)
[2022-05-16] MEDS: fentaNYL citrate/PF 100 MCG/2 ML VIAL 50 MCG IVPUSH ×2 (09:15→09:25)
[2022-05-16] MEDS: fentaNYL citrate/NS 1,000 MCG/100 ML PLAST..BAG 5 MCG IVCONT (09:15)
[2022-05-16 11:44] LABS: Glucose, Whole Blood 140 mg/dL (60-115)
--- NOTE | 2022-05-16 12:02 | P.PNCC_ITS ---
Subjective Subjective Date of Service: 05/16/22 Interval History: 56-year-old morbidly obese type 2 diabetic status post episode of angioedema with upper airway obstruction and because he actually stop breathing was profoundly anoxic and never lost circulation had good bilateral peripheral pulses throughout requiring emergency tracheostomy and complicated by negative pressure pulmonary edema that responded well to 1 dose IV Lasix plus ventilator support and finally weaning his FiO2 down today to 60% and he did awaken with good cognitive function but because of high FiO2 he was he was sedated in addition with fentanyl because he was having back pain Critical Care Time (minutes): 45 Physical Exam Vital Signs: Vital Signs: Last Vital Signs Temp 96.7 F L 05/16/22 11:00 Pulse 90 05/16/22 11:00 Resp 9 L 05/16/22 10:00 BP 118/73 05/16/22 11:00 Pulse Ox 96 05/16/22 11:00 O2 Del Method Trach Collar 05/16/22 11:00 FiO2 60 05/16/22 11:00 BMI result Body Mass Index 44.3 he was awake and alert but agitated nonfocal neurologically bedside echo again showing normal LV and RV function abdomen with no again a megaly lungs with no adventitious sounds no accessory muscle or diaphragmatic effort Objective Data Labs 05/16/22 05:03 05/16/22 05:03 Labs: Laboratory Results - last 24 hr 05/15/22 05/15/22 05/15/22 14:43 14:44 14:44 WBC 5.7 RBC 3.99 L Hgb 14.3 Hct 42.8 MCV 107.3 H MCH 35.8 H MCHC 33.4 RDW 15.4 Plt Count 120 L MPV 9.5 Immature Gran % (Auto) 0.3 Neut % (Auto) 63.1 Lymph % (Auto) 23.1 [place] % (Auto) 10.7 Eos % (Auto) 2.1 Baso % (Auto) 0.7 Lymph # (Auto) 1.3 [place] # (Auto) 0.6 Eos # (Auto) 0.1 Baso # (Auto) 0.0 Abs Immat Gran (auto) 0.02 Absolute Neuts (auto) 3.6 Absolute Nucleated RBC 0.000 Nucleated RBC % (auto) 0.0 VBG pH VBG pCO2 VBG pO2 VBG HCO3 VBG O2 Saturation VBG Base Excess Sodium 138 Potassium 4.4 Chloride 99 Carbon Dioxide 26 Anion Gap 17 BUN 8 L Creatinine 0.67 Estim Creat Clear Calc 173.5 Estimated GFR > 60 POC Glucose Random Glucose 124 H Calcium 8.4 D Phosphorus Magnesium 1.5 L Total Bilirubin 1.0 Direct Bilirubin 0.4 AST 53 H ALT 29 Alkaline Phosphatase 131 H Total Protein 6.5 Albumin 3.2 L Urine Color Urine Appearance Urine pH Ur Specific [place] Urine Protein Urine Glucose (UA) Urine Ketones Urine Blood Urine Nitrite Ur Leukocyte Esterase Urine RBC Urine WBC Ur Squamous Epith Cells Urine Bacteria Hyaline Casts Urine Opiates Screen Urine Fentanyl Screen Ur Barbiturates Screen Ur Phencyclidine Scrn Ur Amphetamines Screen U Benzodiazepines Scrn Urine Cocaine Screen U Marijuana (THC) Screen Ethyl Alcohol COVID-19 ([facility]) COVID-19 [employer] Com Blood Type A Negative Antibody Screen NEGATIVE 05/15/22 05/15/22 05/15/22 14:44 17:20 17:23 WBC RBC Hgb Hct MCV MCH MCHC RDW Plt Count MPV Immature Gran % (Auto) Neut % (Auto) Lymph % (Auto) [place] % (Auto) Eos % (Auto) Baso % (Auto) Lymph # (Auto) [place] # (Auto) Eos # (Auto) Baso # (Auto) Abs Immat Gran (auto) Absolute Neuts (auto) Absolute Nucleated RBC Nucleated RBC % (auto) VBG pH VBG pCO2 VBG pO2 VBG HCO3 VBG O2 Saturation VBG Base Excess Sodium Potassium Chloride Carbon Dioxide Anion Gap BUN Creatinine Estim Creat Clear Calc Estimated GFR POC Glucose 198 H Random Glucose Calcium Phosphorus Magnesium Total Bilirubin Direct Bilirubin AST ALT Alkaline Phosphatase Total Protein Albumin Urine Color Urine Appearance Urine pH Ur Specific [place] Urine Protein Urine Glucose (UA) Urine Ketones Urine Blood Urine Nitrite Ur Leukocyte Esterase Urine RBC Urine WBC Ur Squamous Epith Cells Urine Bacteria Hyaline Casts Urine Opiates Screen Not Detected Urine Fentanyl Screen Not Detected Ur Barbiturates Screen Not Detected Ur Phencyclidine Scrn Not Detected Ur Amphetamines Screen Not Detected U Benzodiazepines Scrn POSITIVE H Urine Cocaine Screen Not Detected U Marijuana (THC) Screen POSITIVE H Ethyl Alcohol COVID-19 ([facility]) Negative COVID-19 [employer] Com See Note Blood Type Antibody Screen 05/15/22 05/15/22 05/15/22 17:23 19:20 19:27 WBC RBC Hgb Hct MCV MCH MCHC RDW Plt Count MPV Immature Gran % (Auto) Neut % (Auto) Lymph % (Auto) [place] % (Auto) Eos % (Auto) Baso % (Auto) Lymph # (Auto) [place] # (Auto) Eos # (Auto) Baso # (Auto) Abs Immat Gran (auto) Absolute Neuts (auto) Absolute Nucleated RBC Nucleated RBC % (auto) VBG pH 7.48 H VBG pCO2 33 VBG pO2 106 VBG HCO3 25 VBG O2 Saturation 100.0 VBG Base Excess 2.7 Sodium Potassium Chloride Carbon Dioxide Anion Gap BUN Creatinine Estim Creat Clear Calc Estimated GFR POC Glucose Random Glucose Calcium Phosphorus Magnesium Total Bilirubin Direct Bilirubin AST ALT Alkaline Phosphatase Total Protein Albumin Urine Color Yellow Urine Appearance Clear Urine pH 6.0 Ur Specific [place] 1.010 Urine Protein 100 (2+) H Urine Glucose (UA) Negative Urine Ketones Negative Urine Blood Negative Urine Nitrite Negative Ur Leukocyte Esterase Negative Urine RBC 0-2 Urine WBC 0-5 Ur Squamous Epith Cells 0-2 Urine Bacteria None Seen Hyaline Casts 0-2 Urine Opiates Screen Urine Fentanyl Screen Ur Barbiturates Screen Ur Phencyclidine Scrn Ur Amphetamines Screen U Benzodiazepines Scrn Urine Cocaine Screen U Marijuana (THC) Screen Ethyl Alcohol < 10 COVID-19 ([facility]) COVID-19 Clin Com Blood Type Antibody Screen 05/15/22 05/15/22 05/16/22 19:54 23:08 05:03 WBC 5.2 RBC 3.77 L Hgb 13.7 L Hct 40.3 L MCV 106.9 H MCH 36.3 H MCHC 34.0 RDW 15.7 Plt Count 133 L MPV 10.2 Immature Gran % (Auto) 0.4 Neut % (Auto) 77.3 H Lymph % (Auto) 12.9 L [place] % (Auto) 9.0 Eos % (Auto) 0.2 Baso % (Auto) 0.2 Lymph # (Auto) 0.7 L [place] # (Auto) 0.5 Eos # (Auto) 0.0 Baso # (Auto) 0.0 Abs Immat Gran (auto) 0.02 Absolute Neuts (auto) 4.0 Absolute Nucleated RBC 0.000 Nucleated RBC % (auto) 0.0 VBG pH VBG pCO2 VBG pO2 VBG HCO3 VBG O2 Saturation VBG Base Excess Sodium Potassium Chloride Carbon Dioxide Anion Gap BUN Creatinine Estim Creat Clear Calc Estimated GFR POC Glucose 239 H 245 H Random Glucose Calcium Phosphorus Magnesium Total Bilirubin Direct Bilirubin AST ALT Alkaline Phosphatase Total Protein Albumin Urine Color Urine Appearance Urine pH Ur Specific [place] Urine Protein Urine Glucose (UA) Urine Ketones Urine Blood Urine Nitrite Ur Leukocyte Esterase Urine RBC Urine WBC Ur Squamous Epith Cells Urine Bacteria Hyaline Casts Urine Opiates Screen Urine Fentanyl Screen Ur Barbiturates Screen Ur Phencyclidine Scrn Ur Amphetamines Screen U Benzodiazepines Scrn Urine Cocaine Screen U Marijuana (THC) Screen Ethyl Alcohol COVID-19 ([facility]) COVID-19 [employer] Com Blood Type Antibody Screen 05/16/22 05/16/22 05/16/22 05:03 05:04 05:17 WBC RBC Hgb Hct MCV MCH MCHC RDW Plt Count MPV Immature Gran % (Auto) Neut % (Auto) Lymph % (Auto) [place] % (Auto) Eos % (Auto) Baso % (Auto) Lymph # (Auto) [place] # (Auto) Eos # (Auto) Baso # (Auto) Abs Immat Gran (auto) Absolute Neuts (auto) Absolute Nucleated RBC Nucleated RBC % (auto) VBG pH 7.54 H VBG pCO2 36 VBG pO2 66 VBG HCO3 32 H VBG O2 Saturation 92.0 VBG Base Excess 9.2 Sodium 138 Potassium 4.5 Chloride 99 Carbon Dioxide 27 Anion Gap 17 BUN 11 Creatinine 0.78 Estim Creat Clear Calc 163.5 Estimated GFR > 60 POC Glucose 180 H Random Glucose 167 H Calcium 8.0 L Phosphorus 4.1 Magnesium 1.5 L Total Bilirubin Direct Bilirubin AST ALT Alkaline Phosphatase Total Protein Albumin 3.0 L Urine Color Urine Appearance Urine pH Ur Specific [place] Urine Protein Urine Glucose (UA) Urine Ketones Urine Blood Urine Nitrite Ur Leukocyte Esterase Urine RBC Urine WBC Ur Squamous Epith Cells Urine Bacteria Hyaline Casts Urine Opiates Screen Urine Fentanyl Screen Ur Barbiturates Screen Ur Phencyclidine Scrn Ur Amphetamines Screen U Benzodiazepines Scrn Urine Cocaine Screen U Marijuana (THC) Screen Ethyl Alcohol COVID-19 ([facility]) COVID-19 [employer] Com Blood Type Antibody Screen 05/16/22 05/16/22 07:10 11:41 WBC RBC Hgb Hct MCV MCH MCHC RDW Plt Count MPV Immature Gran % (Auto) Neut % (Auto) Lymph % (Auto) [place] % (Auto) Eos % (Auto) Baso % (Auto) Lymph # (Auto) [place] # (Auto) Eos # (Auto) Baso # (Auto) Abs Immat Gran (auto) Absolute Neuts (auto) Absolute Nucleated RBC Nucleated RBC % (auto) VBG pH VBG pCO2 VBG pO2 VBG HCO3 VBG O2 Saturation VBG Base Excess Sodium Potassium Chloride Carbon Dioxide Anion Gap BUN Creatinine Estim Creat Clear Calc Estimated GFR POC Glucose 170 H 140 H Random Glucose Calcium Phosphorus Magnesium Total Bilirubin Direct Bilirubin AST ALT Alkaline Phosphatase Total Protein Albumin Urine Color Urine Appearance Urine pH Ur Specific [place] Urine Protein Urine Glucose (UA) Urine Ketones Urine Blood Urine Nitrite Ur Leukocyte Esterase Urine RBC Urine WBC Ur Squamous Epith Cells Urine Bacteria Hyaline Casts Urine Opiates Screen Urine Fentanyl Screen Ur Barbiturates Screen Ur Phencyclidine Scrn Ur Amphetamines Screen U Benzodiazepines Scrn Urine Cocaine Screen U Marijuana (THC) Screen Ethyl Alcohol COVID-19 ([facility]) COVID-19 Clin Com Blood Type Antibody Screen Progress Note: A&P Assessment and plan (1) Acute non-cardiogenic pulmonary edema: Status: Acute (2) Acute hypoxemic respiratory failure: Status: Acute (3) Status post tracheostomy: Status: Acute (4) Angioedema: Status: Acute (5) Syncope: Status: Acute (6) ETOH abuse: Status: Acute (7) Morbid obesity: Status: Acute (8) KD (obstructive sleep apnea): Status: Acute (9) Insulin dependent type 2 diabetes mellitus: Status: Acute (10) Diabetic neuropathy: Status: Acute (11) CAD (coronary artery disease): Status: Acute (12) HTN (hypertension): Status: Acute (13) COPD (chronic obstructive pulmonary disease): Status: Acute (14) Restrictive airway disease: Status: Acute (15) Nicotine dependence, cigarettes, uncomplicated: Status: Acute Plan plan right now until we wean him down to an FiO2 of 40% is to keep an sedated by adding fentanyl and still continued p.r.n. use of Versed in case he starts to demonstrate miriam withdrawal due to his chronic alcohol habit and of course continue tracheostomy care and then at some point once he is weaned off the ventilator and he is just on a trach mask we can then discuss with surgery the timing of decannulation Quality Stroke Does the patient have a stroke diagnosis?: No VTE Prior VTE?: No VTE Risk Level:: Medical - moderate - high VTE Device Contraindication: N/A - Device Ordered VTE Drug Contraindication: N/A - Med Ordered
--- NOTE | 2022-05-16 12:02 | MHC.CM.PN ---
Pt in ICU on ventilatory support: unable to participate in CM assessment: Information obtained from EMR and discussion w/pt's spouse Elham. Pt resides w/Elham, has no services at present, and requires physical assistance for ADL's. Elham states pt lives on the couch and uses a walker, w/c and bedside commode. He seldom leaves the home as he is paranoid about falling. Elham states a hx of bipolar (not on meds d/t past issue w/[place] toxicity) which she feels is making his deconditioning worse. Elham works 11[employer]7 and is pt's primary resident care supervisor. Will refer to [facility] for skilled RN and PT assessments. STR deferred at this time: Elham states pt will refuse. PCP: Amarilis Gonzalez: HCP on file: Covid x 2 no booster CM to follow for finalization of d/c needs.
--- NOTE | 2022-05-16 12:32 | W.PM.OPN ---
Operative Note Operative Note Date of Service: 05/15/22 Narrative: Preoperative diagnosis impending obstructive airway Postop diagnosis same Procedure emergent tracheostomy placement Surgeon [facility] [employer] Director Mary Anesthesia modified general Findings; a 56-year-old male who was acutely consulted by the emergency room team for impending airway obstruction secondary to angioedema. Patient was urgently transferred to the operating room from the ER and underwent emergency tracheostomy for airway a control because of airway obstruction secondary to angioedema. Indication for surgery; Patient is very morbidly obese and in acute respiratory distress requiring immediate airway. Procedure patient has notable was brought to the operating theater, placed on operative table supine position, and because of the acuity of the situation, an emergency tracheostomy was performed. Patient's neck was prepped with Betadine and a transverse incision was made approximately 2 fingerbreadths above the sternal notch. This carried down through skin, subcutaneous tissue, and strap muscles were retracted laterally. Patient quite corpulent and had appreciably thick neck. Dissection was carried down to the trachea where a transverse incision was made approximately between the 2nd and 3rd tracheal rings and a long size 8 Shiley tracheostomy tube was uneventfully placed. Airway was then controlled and patient had adequate oxygenation and CO2 exchange. The wound was irrigated, and secured for hemostasis. A velcro tracheostomy strap was then placed and secured along with 2-0 silk stay sutures from the right and left tracheal flanges to the skin respectively. Sterile dressing was applied. Sponge, needle, and instrument counts were reported to be correct. Patient was in stable condition and transferred directly to the ICU for for further resuscitative measures.
--- NOTE | 2022-05-16 15:22 | HO.POSTANES ---
Post Anesthesia Evaluation Post Anesthesia Evaluation Vital Signs: Vital Signs Temp Pulse Resp BP Pulse Ox O2 Del Method FiO2 05/16/22 12:00 60 05/16/22 14:00 71 17 103/64 93 Mechanical Ventilation, Trach Collar 85 05/16/22 13:00 93 16 100/64 93 Mechanical Ventilation, Trach Collar 85 05/16/22 12:00 79 16 100/69 93 Mechanical Ventilation, Trach Collar 85 05/16/22 11:00 60 05/16/22 10:15 70 05/16/22 11:00 60 05/16/22 10:16 70 05/16/22 15:00 96.9 F 93 18 100/65 93 Mechanical Ventilation, Trach Collar 60 05/16/22 08:00 85 05/16/22 08:00 85 05/16/22 11:00 96.7 F L 90 118/73 96 Mechanical Ventilation, Trach Collar 85 05/16/22 10:00 94 9 L 111/75 96 Mechanical Ventilation, Trach Collar 85 05/16/22 09:00 85 107/73 96 Mechanical Ventilation, Trach Collar 85 05/16/22 08:00 74 18 105/72 93 Mechanical Ventilation, Trach Collar 85 05/16/22 07:00 98.1 F 73 18 99/71 92 Mechanical Ventilation, Trach Collar 85 05/16/22 04:31 62 131/87 05/16/22 04:00 85 05/16/22 04:17 85 05/16/22 06:00 73 18 93/63 90 L Mechanical Ventilation 85 05/16/22 05:00 76 18 91/64 91 L Mechanical Ventilation 85 05/16/22 04:00 73 18 92 Mechanical Ventilation 85 Anesthesia: General Mental Status: Sedated Pain Control: Satisfactory Nausea/Vomiting: None Hydration: Adequate Anesthesia-Related Issues: No Anes. Related Issues Comments: Emergency tracheostomy angioedema and respiratory compromise.
[2022-05-16] MEDS: fentaNYL citrate/NS 1,000 MCG/100 ML PLAST..BAG 10 MCG IVCONT (17:45)
[2022-05-16 18:19] LABS: Glucose, Whole Blood 127 mg/dL (60-115)
--- NOTE | 2022-05-16 18:26 | PC.NURSE ---
Pt continues to be sedated and vented via trach at AC settings; pt completely awake and very agitated with Propofol gtt at max, requiring additional sedation of Fentanyl IVP as well as Fentanyl gtt. Pt's vent settings changed to PS and then on PC and tolerating at the settings of 16/12/5/60%. Trach care provided PRN, inline secretions of miriam red blood with clots, heparin on hold, bloody secretions reduced throughout shift. bright red blood oozing around trach, reduced throughout the shift. Clear oral secretions, PO care provided PRN. Continues to have tongue and facial swelling, reduced comparatively to start of shift. Pt bathed and skin care provided as needed. Pt repositioned every 2 hrs and PRN, prevalon system utilized, on turning bed. Pt requires frequent redirection, is otherwise compliant, just frustrated with unability to speak. Safety maintained throughout. updated and all questions answered. Will continue to monitor.
[2022-05-16] MEDS: Midazolam HCl/NS 50 MG/50 ML PLAST..BAG IVCONT (22:48)
[2022-05-17] VITALS (31 sets, daily range): BP systolic 104–138; BP diastolic 61–81; PULSE 57–86; RESP 13–19; TEMP 35–36.9; O2SAT 90–97; BMI 43.8
[2022-05-17 00:28] LABS: Glucose, Whole Blood 164 mg/dL (60-115)
[2022-05-17] MEDS: propofoL 1,000 MG/100 ML VIAL 39.6 MG IVCONT ×10 (01:06→22:21)
[2022-05-17] MEDS: Chlorhexidine Gluc Oral Rinse 15 ML MOUTHWASH BUCCAL ×3 (02:20→15:55)
[2022-05-17] MEDS: Midazolam HCl/NS 50 MG/50 ML PLAST..BAG IVCONT ×2 (03:03→12:54)
[2022-05-17] MEDS: fentaNYL citrate/NS 1,000 MCG/100 ML PLAST..BAG 10 MCG IVCONT ×3 (03:06→22:24)
[2022-05-17 04:38] LABS: VBG HCO3 30 mmol/L (22-26); VBG pCO2 39 mmHg; VBG pH 7.49 (7.32-7.43); VBG pO2 67 mmHg
[2022-05-17 04:46] LABS: MANUAL DIFF FLAG NO
[2022-05-17 04:48] LABS: Basophils Percent Auto 0.1 % (0-2); Hemoglobin 12.5 g/dl (14.0-18.0); Imm Gran Abs Auto 0.03 X10*3/uL (0.00-0.03); Imm Gran Pct Auto 0.4 % (0.0-0.4); Lymphocytes Absolute Auto 0.7 X10*3/uL (1.2-4.9); Mean Corpuscular HGB Conc 32.9 g/dl (31.0-36.0); Mean Corpuscular Hemoglobin 36.7 pg (27.0-33.0); Monocytes Absolute Auto 0.5 X10*3/uL (0.1-1.2); Monocytes Percent Auto 7.5 % (2-11); Neutrophils Absolute Auto 5.5 x10*3/uL (2.0-8.3); Platelet Count 124 X10*3/uL (160-400); Red Blood Count 3.41 X10*6/uL (4.60-5.80); Red Cell Distribution Width 16.5 % (11.0-16.0); White Blood Count 6.7 X10*3/uL (4.8-10.8)
[2022-05-17 04:49] LABS: Mean Corpuscular Volume 111.4 fL (80.0-98.0)
[2022-05-17 05:02] LABS: Anion Gap 18 (12-20); Blood Urea Nitrogen 13 mg/dL (9-16); Calcium 7.8 mg/dL (8.4-10.2); Carbon Dioxide 26 mmol/L (22-29); Chloride 101 mmol/L (96-108); Creatinine Clr Calc Pharmacy 174.7; Estimated Glomerular Filt Rate > 60; Glucose Random 149 mg/dL (60-115); Magnesium 1.8 mg/dL (1.6-2.6); Phosphorus 4.3 mg/dL (2.7-4.5); Potassium 4.6 mmol/L (3.3-5.1); Sodium 140 mmol/L (135-145)
[2022-05-17] MEDS: methylPREDNISolone Sod Succ 40 MG/ML VIAL IVPUSH ×4 (05:04→22:25)
[2022-05-17 05:43] LABS: Venous Blood Gas Refer to POC result
[2022-05-17 06:19] LABS: Glucose, Whole Blood 149 mg/dL (60-115)
[2022-05-17] MEDS: Heparin Sodium,Porcine 5,000 UNIT/ML VIAL 5000 UNIT SUBCUT (09:29)
[2022-05-17] MEDS: Famotidine/PF 20 MG/2 ML VIAL IVPUSH ×2 (09:29→19:58)
[2022-05-17 12:09] LABS: Glucose, Whole Blood 131 mg/dL (60-115)
--- NOTE | 2022-05-17 16:20 | PM.CCPN ---
Subjective Subjective Date of Service: 05/17/22 Interval History: 56-year-old moderately obese male probable obstructive sleep apnea by history but never had his sleep test he has a insulin-dependent type 2 diabetic and hypertensive with evidence of smoking related COPD presented with angioedema and rapidly progressed airway compromise requiring emergency tracheostomy probable small amount of blood aspiration but he had negative pressure pulmonary edema and became quite hypoxemic and currently we are able to wean his FiO2 but it looks like he has persistent right middle lobe atelectasis probably related to the aspiration but we found out that he is a significant alcoholic and currently clinically is the developing alcohol withdrawal issues today he he clearly was was tremulous and unable to sustain any meaningful cognitive function and so we had to recent date him acutely and because we have been unable to feed him on going to need to start him on IV hydration and because of the aspiration and I am I may wind up having to empirically cover him especially with the right middle lobe atelectasis Critical Care Time (minutes): 45 Physical Exam Vital Signs: Vital Signs: Last Vital Signs Temp 97.2 F 05/17/22 15:01 Pulse 61 05/17/22 16:00 Resp 15 05/17/22 16:00 BP 116/68 05/17/22 16:00 Pulse Ox 93 05/17/22 16:00 O2 Del Method 05/17/22 16:00 FiO2 40 05/17/22 16:00 BMI result Body Mass Index 43.8 Poor cognitive function on the sedation holiday Lungs is still has scattered bilateral wheezing Cardiac exam by bedside echo with normal LV function Abdomen is soft with no organomegaly Skin is intact Objective Data Labs 05/17/22 04:32 05/17/22 04:32 Labs: Laboratory Results - last 24 hr 05/16/22 05/17/22 05/17/22 18:14 00:24 04:29 WBC RBC Hgb Hct MCV MCH MCHC RDW Plt Count MPV Immature Gran % (Auto) Neut % (Auto) Lymph % (Auto) [place] % (Auto) Eos % (Auto) Baso % (Auto) Lymph # (Auto) [place] # (Auto) Eos # (Auto) Baso # (Auto) Abs Immat Gran (auto) Absolute Neuts (auto) Absolute Nucleated RBC Nucleated RBC % (auto) VBG pH 7.49 H VBG pCO2 39 VBG pO2 67 VBG HCO3 30 H VBG O2 Saturation 89.0 VBG Base Excess TNP Sodium Potassium Chloride Carbon Dioxide Anion Gap BUN Creatinine Estim Creat Clear Calc Estimated GFR POC Glucose 127 H 164 H Random Glucose Calcium Phosphorus Magnesium Albumin 05/17/22 05/17/22 05/17/22 04:32 04:32 06:11 WBC 6.7 RBC 3.41 L Hgb 12.5 L Hct 38.0 L MCV 111.4 H MCH 36.7 H MCHC 32.9 RDW 16.5 H Plt Count 124 L MPV 10.0 Immature Gran % (Auto) 0.4 Neut % (Auto) 82.0 H Lymph % (Auto) 10.0 L [place] % (Auto) 7.5 Eos % (Auto) 0.0 Baso % (Auto) 0.1 Lymph # (Auto) 0.7 L [place] # (Auto) 0.5 Eos # (Auto) 0.0 Baso # (Auto) 0.0 Abs Immat Gran (auto) 0.03 Absolute Neuts (auto) 5.5 Absolute Nucleated RBC 0.000 Nucleated RBC % (auto) 0.0 VBG pH VBG pCO2 VBG pO2 VBG HCO3 VBG O2 Saturation VBG Base Excess Sodium 140 Potassium 4.6 Chloride 101 Carbon Dioxide 26 Anion Gap 18 BUN 13 Creatinine 0.73 Estim Creat Clear Calc 174.7 Estimated GFR > 60 POC Glucose 149 H Random Glucose 149 H Calcium 7.8 L Phosphorus 4.3 Magnesium 1.8 Albumin 3.0 L 05/17/22 11:59 WBC RBC Hgb Hct MCV MCH MCHC RDW Plt Count MPV Immature Gran % (Auto) Neut % (Auto) Lymph % (Auto) [place] % (Auto) Eos % (Auto) Baso % (Auto) Lymph # (Auto) [place] # (Auto) Eos # (Auto) Baso # (Auto) Abs Immat Gran (auto) Absolute Neuts (auto) Absolute Nucleated RBC Nucleated RBC % (auto) VBG pH VBG pCO2 VBG pO2 VBG HCO3 VBG O2 Saturation VBG Base Excess Sodium Potassium Chloride Carbon Dioxide Anion Gap BUN Creatinine Estim Creat Clear Calc Estimated GFR POC Glucose 131 H Random Glucose Calcium Phosphorus Magnesium Albumin Progress Note: A&P Assessment and plan (1) Acute non-cardiogenic pulmonary edema: Status: Acute (2) Acute hypoxemic respiratory failure: Status: Acute (3) Status post tracheostomy: Status: Acute (4) Angioedema: Status: Acute (5) Electrolyte abnormality: Status: Acute (6) Syncope: Status: Acute (7) ETOH abuse: Status: Acute (8) Morbid obesity: Status: Acute (9) Foot ulcer, left: Status: Acute (10) KD (obstructive sleep apnea): Status: Acute (11) Insulin dependent type 2 diabetes mellitus: Status: Acute (12) Diabetes: Status: Acute (13) Diabetic neuropathy: Status: Acute (14) CAD (coronary artery disease): Status: Acute (15) HTN (hypertension): Status: Acute (16) COPD (chronic obstructive pulmonary disease): Status: Acute (17) Restrictive airway disease: Status: Acute (18) Nicotine dependence, cigarettes, uncomplicated: Status: Acute (19) Hypokalemia: Status: Acute (20) Elevated alkaline phosphatase level: Status: Acute (21) Elevated liver enzymes: Status: Acute (22) Obesity: Status: Acute (23) Thrombocytopenia: Status: Chronic Plan Continued sedation holidays to evaluate cognitive function and to continue to try to wean his FiO2 and once cognitive function is restored a.m. pressure support ventilator wean at that point but the alcohol withdrawal might delay the entire process Quality Stroke Does the patient have a stroke diagnosis?: No VTE Prior VTE?: No VTE Risk Level:: Medical - moderate - high VTE Device Contraindication: N/A - Device Ordered VTE Drug Contraindication: N/A - Med Ordered
[2022-05-17 17:35] LABS: Glucose, Whole Blood 152 mg/dL (60-115)
[2022-05-17] MEDS: Midazolam HCl/NS 50 MG/50 ML PLAST..BAG 6 MG IVCONT (22:24)
[2022-05-17 23:44] LABS: Glucose, Whole Blood 163 mg/dL (60-115)
[2022-05-18] VITALS (32 sets, daily range): BP systolic 107–145; BP diastolic 50–90; PULSE 53–84; RESP 10–23; TEMP 35–36.8; O2SAT 90–99; BMI 44.0
[2022-05-18] MEDS: propofoL 1,000 MG/100 ML VIAL 39.6 MG IVCONT ×11 (00:14→23:49)
[2022-05-18] MEDS: Heparin Sodium,Porcine 5,000 UNIT/ML VIAL 5000 UNIT SUBCUT (00:14)
[2022-05-18] MEDS: Chlorhexidine Gluc Oral Rinse 15 ML MOUTHWASH BUCCAL ×3 (00:15→16:39)
[2022-05-18 04:38] LABS: Hemoglobin 12.5 g/dl (14.0-18.0); PLT CLUMP 1; Red Cell Distribution Width 16.1 % (11.0-16.0); SCAN SMEAR FLAG 1
[2022-05-18 04:40] LABS: Basophils Percent Auto 0.1 % (0-2); Eosinophils Percent Auto 0.1 % (0-4); Hematocrit 38.2 % (42.0-52.0); Imm Gran Abs Auto 0.02 X10*3/uL (0.00-0.03); Imm Gran Pct Auto 0.3 % (0.0-0.4); Lymphocytes Absolute Auto 0.9 X10*3/uL (1.2-4.9); Lymphocytes Percent Auto 12.6 % (20-40); MANUAL DIFF FLAG SCAN; Mean Corpuscular HGB Conc 32.7 g/dl (31.0-36.0); Mean Corpuscular Hemoglobin 36.1 pg (27.0-33.0); Mean Platelet Volume 9.8 fL (9.4-12.4); Monocytes Absolute Auto 0.8 X10*3/uL (0.1-1.2); Monocytes Percent Auto 11.6 % (2-11); Neutrophils Absolute Auto 5.1 x10*3/uL (2.0-8.3); Neutrophils Percent Auto 75.3 % (45-73); Red Blood Count 3.46 X10*6/uL (4.60-5.80)
[2022-05-18 04:47] LABS: Anion Gap 15 (12-20); Blood Urea Nitrogen 15 mg/dL (9-16); Calcium 7.9 mg/dL (8.4-10.2); Carbon Dioxide 26 mmol/L (22-29); Chloride 102 mmol/L (96-108); Creatinine Clr Calc Pharmacy 183.6; Estimated Glomerular Filt Rate > 60; Glucose Random 140 mg/dL (60-115); Magnesium 1.9 mg/dL (1.6-2.6); Phosphorus 3.4 mg/dL (2.7-4.5); Potassium 4.4 mmol/L (3.3-5.1); Sodium 139 mmol/L (135-145)
[2022-05-18 04:50] LABS: Mean Corpuscular Volume 110.4 fL (80.0-98.0); Platelet Count 129 X10*3/uL (160-400); White Blood Count 6.7 X10*3/uL (4.8-10.8)
[2022-05-18 04:57] LABS: VBG Base Excess 7.9 mmol/L; VBG HCO3 31 mmol/L (22-26); VBG pCO2 40 mmHg; VBG pO2 85 mmHg
[2022-05-18] MEDS: methylPREDNISolone Sod Succ 40 MG/ML VIAL IVPUSH ×4 (04:58→23:50)
[2022-05-18 05:14] LABS: Venous Blood Gas Refer to POC result
[2022-05-18 05:18] LABS: SLIDE REVIEW VERIFIED
[2022-05-18] MEDS: Midazolam HCl/NS 50 MG/50 ML PLAST..BAG 6 MG IVCONT (06:01)
[2022-05-18 06:07] LABS: Glucose, Whole Blood 133 mg/dL (60-115)
[2022-05-18] MEDS: fentaNYL citrate/NS 1,000 MCG/100 ML PLAST..BAG 10 MCG IVCONT ×3 (08:30→18:37)
[2022-05-18] MEDS: Albuterol Sulfate (0.083%) 2.5 MG/3 ML VIAL.NEB INHALE ×4 (09:03→23:37)
[2022-05-18] MEDS: Midazolam HCl/NS 50 MG/50 ML PLAST..BAG IVCONT ×2 (09:42→18:37)
[2022-05-18] MEDS: Famotidine/PF 20 MG/2 ML VIAL IVPUSH ×2 (09:51→22:34)
[2022-05-18 12:10] LABS: Glucose, Whole Blood 185 mg/dL (60-115)
--- NOTE | 2022-05-18 14:32 | PM.CCPN ---
Subjective Subjective Date of Service: 05/18/22 Interval History: 56-year-old moderately obese male with underlying smoking-related COPD hypertensive type 2 diabetic but insulin dependent with obstructive sleep apnea by symptom but has never undergone the requisite sleeping test presented with angioedema significant submandibular swelling and while observing the airway after receiving steroids and antihistamines he suddenly close required emergency tracheostomy in the OR which worked as successfully he had a brief postprocedural seizure presumably of course related to hypoxia but he has since of awakened as we reduce sedation but he is also a considerable alcoholic and were 2 days into a alcohol withdrawal process but the degree of agitation is diminishing and at this point but he the no failed in terms of his cognitive function today but definitely improving slowly over time and right now he remains fixed on an FiO2 of 50% and has right middle lobe atelectasis presumably min infiltrate and he clearly had had aspiration so is being covered with antibiotics and having of pulmonary toileting is bringing up copious amounts of sputum Critical Care Time (minutes): 45 Physical Exam Vital Signs: Vital Signs: Last Vital Signs Temp 98.2 F 05/18/22 08:00 Pulse 75 05/18/22 14:00 Resp 16 05/18/22 14:00 BP 133/90 H 05/18/22 14:00 Pulse Ox 91 L 05/18/22 14:00 O2 Del Method 05/18/22 14:00 FiO2 45 05/18/22 14:00 BMI result Body Mass Index 44.0 Nonfocal neurologically and he does awaken but cognitive function not quite there yet Lungs with diminished bilateral breath sounds but no accessory muscle a diaphragmatic effort Abdomen soft with no organomegaly Cardiac exam normal by bedside echo Objective Data Labs 05/18/22 04:18 05/18/22 04:18 Labs: Laboratory Results - last 24 hr 05/17/22 05/17/22 05/18/22 17:26 23:41 04:18 WBC 6.7 RBC 3.46 L Hgb 12.5 L Hct 38.2 L MCV 110.4 H MCH 36.1 H MCHC 32.7 RDW 16.1 H Plt Count 129 L MPV 9.8 Immature Gran % (Auto) 0.3 Neut % (Auto) 75.3 H Lymph % (Auto) 12.6 L [place] % (Auto) 11.6 H Eos % (Auto) 0.1 Baso % (Auto) 0.1 Lymph # (Auto) 0.9 L [place] # (Auto) 0.8 Eos # (Auto) 0.0 Baso # (Auto) 0.0 Abs Immat Gran (auto) 0.02 Absolute Neuts (auto) 5.1 Absolute Nucleated RBC 0.000 Nucleated RBC % (auto) 0.0 Smear Tech's Comments VERIFIED VBG pH VBG pCO2 VBG pO2 VBG HCO3 VBG O2 Saturation VBG Base Excess Sodium Potassium Chloride Carbon Dioxide Anion Gap BUN Creatinine Estim Creat Clear Calc Estimated GFR POC Glucose 152 H 163 H Random Glucose Calcium Phosphorus Magnesium Albumin 05/18/22 05/18/22 05/18/22 04:18 04:49 06:02 WBC RBC Hgb Hct MCV MCH MCHC RDW Plt Count MPV Immature Gran % (Auto) Neut % (Auto) Lymph % (Auto) [place] % (Auto) Eos % (Auto) Baso % (Auto) Lymph # (Auto) [place] # (Auto) Eos # (Auto) Baso # (Auto) Abs Immat Gran (auto) Absolute Neuts (auto) Absolute Nucleated RBC Nucleated RBC % (auto) Smear Tech's Comments VBG pH 7.50 H VBG pCO2 40 VBG pO2 85 VBG HCO3 31 H VBG O2 Saturation 96.0 VBG Base Excess 7.9 Sodium 139 Potassium 4.4 Chloride 102 Carbon Dioxide 26 Anion Gap 15 BUN 15 Creatinine 0.69 Estim Creat Clear Calc 183.6 Estimated GFR > 60 POC Glucose 133 H Random Glucose 140 H Calcium 7.9 L Phosphorus 3.4 Magnesium 1.9 Albumin 3.0 L 05/18/22 12:07 WBC RBC Hgb Hct MCV MCH MCHC RDW Plt Count MPV Immature Gran % (Auto) Neut % (Auto) Lymph % (Auto) [place] % (Auto) Eos % (Auto) Baso % (Auto) Lymph # (Auto) [place] # (Auto) Eos # (Auto) Baso # (Auto) Abs Immat Gran (auto) Absolute Neuts (auto) Absolute Nucleated RBC Nucleated RBC % (auto) Smear Tech's Comments VBG pH VBG pCO2 VBG pO2 VBG HCO3 VBG O2 Saturation VBG Base Excess Sodium Potassium Chloride Carbon Dioxide Anion Gap BUN Creatinine Estim Creat Clear Calc Estimated GFR POC Glucose 185 H Random Glucose Calcium Phosphorus Magnesium Albumin Progress Note: A&P Assessment and plan (1) Acute non-cardiogenic pulmonary edema: Status: Acute (2) Acute hypoxemic respiratory failure: Status: Acute (3) Status post tracheostomy: Status: Acute (4) Angioedema: Status: Acute (5) Electrolyte abnormality: Status: Acute (6) Syncope: Status: Acute (7) ETOH abuse: Status: Acute (8) Morbid obesity: Status: Acute (9) KD (obstructive sleep apnea): Status: Acute (10) Insulin dependent type 2 diabetes mellitus: Status: Acute (11) CAD (coronary artery disease): Status: Acute (12) HTN (hypertension): Status: Acute (13) COPD (chronic obstructive pulmonary disease): Status: Acute (14) Restrictive airway disease: Status: Acute (15) Nicotine dependence, cigarettes, uncomplicated: Status: Acute (16) Microalbuminuria: Status: Acute (17) Hypokalemia: Status: Acute (18) Elevated alkaline phosphatase level: Status: Acute (19) Elevated liver enzymes: Status: Acute (20) Thrombocytopenia: Status: Chronic Plan Will continue with the aggressive pulmonary toileting including sterile saline lavage and suction along with continued antibiotics clearly a portion of the aspiration was nosocomial and will continue with the sedation as above and again in the morning attempt weaning the sedation and evaluating cognitive function at the same time hopefully wean the FiO2 requirement Quality Stroke Does the patient have a stroke diagnosis?: No VTE Prior VTE?: No VTE Risk Level:: Medical - moderate - high VTE Device Contraindication: N/A - Device Ordered VTE Drug Contraindication: N/A - Med Ordered
[2022-05-18] MEDS: Lactated Ringers 1,000 ML 80 ML IVCONT (14:46)
[2022-05-18 14:52] LABS: Ammonia 49 umol/L (13-55)
[2022-05-18] MEDS: Thiamine HCL 100 MG in 0.9 % Sodium Chloride 100 ML 202 MG IV (14:55)
[2022-05-18 17:18] LABS: Glucose, Whole Blood 164 mg/dL (60-115)
[2022-05-19] VITALS (31 sets, daily range): BP systolic 99–158; BP diastolic 52–84; PULSE 47–72; RESP 12–19; TEMP 35–36.9; O2SAT 90–95; BMI 44.1
[2022-05-19] MEDS: Heparin Sodium,Porcine 5,000 UNIT/ML VIAL 5000 UNIT SUBCUT ×3 (01:26→15:59)
[2022-05-19] MEDS: Chlorhexidine Gluc Oral Rinse 15 ML MOUTHWASH BUCCAL ×3 (01:26→16:00)
[2022-05-19] MEDS: propofoL 1,000 MG/100 ML VIAL 39.6 MG IVCONT ×11 (01:30→23:55)
[2022-05-19] MEDS: Lactated Ringers 1,000 ML 80 ML IVCONT ×2 (02:52→13:56)
[2022-05-19] MEDS: fentaNYL citrate/NS 1,000 MCG/100 ML PLAST..BAG 10 MCG IVCONT ×3 (03:05→22:38)
[2022-05-19] MEDS: Midazolam HCl/NS 50 MG/50 ML PLAST..BAG IVCONT ×3 (04:22→21:45)
[2022-05-19] MEDS: methylPREDNISolone Sod Succ 40 MG/ML VIAL IVPUSH ×4 (04:24→22:38)
[2022-05-19 04:25] LABS: VBG Base Excess 5.7 mmol/L; VBG HCO3 30 mmol/L (22-26); VBG pCO2 42 mmHg; VBG pH 7.45 (7.32-7.43); VBG pO2 102 mmHg
[2022-05-19 04:27] LABS: Venous Blood Gas Refer to POC result
[2022-05-19 05:10] LABS: Basophils Percent Auto 0.1 % (0-2); Mean Corpuscular Volume 109.6 fL (80.0-98.0); PLT CLUMP 1; SCAN SMEAR FLAG 1
[2022-05-19 05:11] LABS: Hematocrit 38.9 % (42.0-52.0); Hemoglobin 12.6 g/dl (14.0-18.0); Imm Gran Abs Auto 0.03 X10*3/uL (0.00-0.03); Imm Gran Pct Auto 0.4 % (0.0-0.4); Lymphocytes Absolute Auto 0.6 X10*3/uL (1.2-4.9); Lymphocytes Percent Auto 8.3 % (20-40); Mean Corpuscular HGB Conc 32.4 g/dl (31.0-36.0); Mean Corpuscular Hemoglobin 35.5 pg (27.0-33.0); Mean Platelet Volume 10.2 fL (9.4-12.4); Monocytes Absolute Auto 0.8 X10*3/uL (0.1-1.2); Monocytes Percent Auto 10.6 % (2-11); Neutrophils Absolute Auto 5.8 x10*3/uL (2.0-8.3); Neutrophils Percent Auto 80.6 % (45-73); Red Blood Count 3.55 X10*6/uL (4.60-5.80); Red Cell Distribution Width 15.7 % (11.0-16.0)
[2022-05-19 05:14] LABS: MANUAL DIFF FLAG NO; Platelet Count 128 X10*3/uL (160-400); White Blood Count 7.1 X10*3/uL (4.8-10.8)
[2022-05-19 05:41] LABS: Albumin Level 3.1 g/dL (3.5-5.0); Anion Gap 18 (12-20); Blood Urea Nitrogen 12 mg/dL (9-16); Calcium 8.1 mg/dL (8.4-10.2); Carbon Dioxide 25 mmol/L (22-29); Chloride 101 mmol/L (96-108); Creatinine Clr Calc Pharmacy 201.9; Estimated Glomerular Filt Rate > 60; Glucose Random 152 mg/dL (60-115); Magnesium 1.9 mg/dL (1.6-2.6); Phosphorus 3.6 mg/dL (2.7-4.5); Potassium 4.5 mmol/L (3.3-5.1); Sodium 139 mmol/L (135-145)
[2022-05-19] MEDS: Albuterol Sulfate (0.083%) 2.5 MG/3 ML VIAL.NEB INHALE ×3 (06:27→17:57)
[2022-05-19] MEDS: Thiamine HCL 100 MG in 0.9 % Sodium Chloride 100 ML 202 MG IV (08:32)
[2022-05-19] MEDS: Famotidine/PF 20 MG/2 ML VIAL IVPUSH ×2 (08:33→20:12)
[2022-05-19 12:15] LABS: Glucose, Whole Blood 191 mg/dL (60-115)
[2022-05-19] MEDS: Insulin Lispro 100 UNIT/ML 3 ML VIAL SUBCUT ×2 (13:11→17:39)
--- NOTE | 2022-05-19 17:21 | PM.CCPN ---
Subjective Subjective Date of Service: 05/19/22 Interval History: 56yo alcoholic and smoker and moderately obese with COPD and KD and type II diabetic who required tracheostomy for angioedema and who seized post trach and aspirated and had negatiove pressure pulmonary edema and currently undergoing alcohol withdrawal today his cognitive function is improving, but not yet ready for PSV trial-aspiration is nosocomial LV function by echo is normal Critical Care Time (minutes): 45 Physical Exam Vital Signs: Vital Signs: Last Vital Signs Temp 98.2 F 05/19/22 16:00 Pulse 50 05/19/22 17:00 Resp 16 05/19/22 17:00 BP 149/80 H 05/19/22 17:00 Pulse Ox 91 L 05/19/22 17:00 O2 Del Method 05/19/22 17:00 FiO2 50 05/19/22 17:00 BMI result Body Mass Index 44.1 improved cognition, and non-focal no accessory muscle use no wheezing sbedside echo with normal LV fx. abdomen soft with no organomegaly Objective Data Labs 05/19/22 04:15 05/19/22 04:14 Labs: Laboratory Results - last 24 hr 05/19/22 05/19/22 05/19/22 04:14 04:15 04:17 WBC 7.1 RBC 3.55 L Hgb 12.6 L Hct 38.9 L MCV 109.6 H MCH 35.5 H MCHC 32.4 RDW 15.7 Plt Count 128 L MPV 10.2 Immature Gran % (Auto) 0.4 Neut % (Auto) 80.6 H Lymph % (Auto) 8.3 L [place] % (Auto) 10.6 Eos % (Auto) 0.0 Baso % (Auto) 0.1 Lymph # (Auto) 0.6 L [place] # (Auto) 0.8 Eos # (Auto) 0.0 Baso # (Auto) 0.0 Abs Immat Gran (auto) 0.03 Absolute Neuts (auto) 5.8 Absolute Nucleated RBC 0.000 Nucleated RBC % (auto) 0.0 VBG pH 7.45 H VBG pCO2 42 VBG pO2 102 VBG HCO3 30 H VBG O2 Saturation 98.0 VBG Base Excess 5.7 Sodium 139 Potassium 4.5 Chloride 101 Carbon Dioxide 25 Anion Gap 18 BUN 12 Creatinine 0.63 Estim Creat Clear Calc 201.9 Estimated GFR > 60 POC Glucose Random Glucose 152 H Calcium 8.1 L Phosphorus 3.6 Magnesium 1.9 Albumin 3.1 L 05/19/22 12:06 WBC RBC Hgb Hct MCV MCH MCHC RDW Plt Count MPV Immature Gran % (Auto) Neut % (Auto) Lymph % (Auto) [place] % (Auto) Eos % (Auto) Baso % (Auto) Lymph # (Auto) [place] # (Auto) Eos # (Auto) Baso # (Auto) Abs Immat Gran (auto) Absolute Neuts (auto) Absolute Nucleated RBC Nucleated RBC % (auto) VBG pH VBG pCO2 VBG pO2 VBG HCO3 VBG O2 Saturation VBG Base Excess Sodium Potassium Chloride Carbon Dioxide Anion Gap BUN Creatinine Estim Creat Clear Calc Estimated GFR POC Glucose 191 H Random Glucose Calcium Phosphorus Magnesium Albumin Microbiology Microbiology Results: Microbiology 05/18/22 15:10 Sputum - Suctioned Gram Stain - Final 05/18/22 15:10 Sputum - Suctioned Sputum Culture - Preliminary Culture in progress. Progress Note: A&P Assessment and plan (1) Acute non-cardiogenic pulmonary edema: Status: Acute (2) Acute hypoxemic respiratory failure: Status: Acute (3) Status post tracheostomy: Status: Acute (4) Angioedema: Status: Acute (5) Syncope: Status: Acute (6) Morbid obesity: Status: Acute (7) ETOH abuse: Status: Acute (8) KD (obstructive sleep apnea): Status: Acute (9) Insulin dependent type 2 diabetes mellitus: Status: Acute (10) Diabetic neuropathy: Status: Acute (11) Hypokalemia: Status: Acute (12) Elevated alkaline phosphatase level: Status: Acute (13) Elevated liver enzymes: Status: Acute (14) Obesity: Status: Acute (15) Thrombocytopenia: Status: Chronic (16) Nicotine dependence, cigarettes, uncomplicated: Status: Acute (17) Restrictive airway disease: Status: Acute (18) COPD (chronic obstructive pulmonary disease): Status: Acute (19) Delirium tremens: Status: Acute (20) HTN (hypertension): Status: Acute (21) Diastolic CHF: Status: Acute Plan reevaluate cognition in AM with sedation holiday PSV trial and antibiotics cy above Quality Stroke Does the patient have a stroke diagnosis?: No VTE Prior VTE?: No VTE Risk Level:: Medical - moderate - high VTE Device Contraindication: N/A - Device Ordered VTE Drug Contraindication: N/A - Med Ordered
[2022-05-19 17:32] LABS: Glucose, Whole Blood 155 mg/dL (60-115)
[2022-05-20] VITALS (35 sets, daily range): BP systolic 114–162; BP diastolic 52–81; PULSE 46–62; RESP 14–17; TEMP 34.5–37; O2SAT 90–97; BMI 44.1
[2022-05-20 00:23] LABS: Glucose, Whole Blood 170 mg/dL (60-115)
[2022-05-20] MEDS: Insulin Lispro 100 UNIT/ML 3 ML VIAL SUBCUT (00:30)
[2022-05-20] MEDS: Chlorhexidine Gluc Oral Rinse 15 ML MOUTHWASH BUCCAL ×4 (00:30→23:59)
[2022-05-20] MEDS: Heparin Sodium,Porcine 5,000 UNIT/ML VIAL 5000 UNIT SUBCUT ×4 (00:30→23:59)
[2022-05-20] MEDS: Lactated Ringers 1,000 ML 80 ML IVCONT (00:52)
[2022-05-20] MEDS: Albuterol Sulfate (0.083%) 2.5 MG/3 ML VIAL.NEB INHALE ×5 (01:03→23:57)
[2022-05-20] MEDS: propofoL 1,000 MG/100 ML VIAL 39.6 MG IVCONT ×10 (02:34→23:58)
[2022-05-20] MEDS: methylPREDNISolone Sod Succ 40 MG/ML VIAL IVPUSH (04:41)
[2022-05-20 05:33] LABS: Basophils Percent Auto 0.2 % (0-2); Eosinophils Percent Auto 0.2 % (0-4); Monocytes Absolute Auto 0.7 X10*3/uL (0.1-1.2); PLT CLUMP 1; SCAN SMEAR FLAG 1
[2022-05-20 05:35] LABS: Hematocrit 38.1 % (42.0-52.0); Hemoglobin 12.8 g/dl (14.0-18.0); Imm Gran Abs Auto 0.05 X10*3/uL (0.00-0.03); Imm Gran Pct Auto 0.8 % (0.0-0.4); Lymphocytes Absolute Auto 0.9 X10*3/uL (1.2-4.9); Lymphocytes Percent Auto 15.4 % (20-40); Mean Corpuscular HGB Conc 33.6 g/dl (31.0-36.0); Mean Corpuscular Hemoglobin 36.1 pg (27.0-33.0); Mean Corpuscular Volume 107.3 fL (80.0-98.0); Neutrophils Absolute Auto 4.3 x10*3/uL (2.0-8.3); Neutrophils Percent Auto 71.4 % (45-73); Red Blood Count 3.55 X10*6/uL (4.60-5.80); Red Cell Distribution Width 15.3 % (11.0-16.0)
[2022-05-20 05:37] LABS: VBG Base Excess 7.3 mmol/L; VBG HCO3 30 mmol/L (22-26); VBG pCO2 35 mmHg; VBG pH 7.53 (7.32-7.43); VBG pO2 75 mmHg
[2022-05-20 05:37] LABS: MANUAL DIFF FLAG NO; Platelet Count 130 X10*3/uL (160-400)
[2022-05-20 05:41] LABS: Venous Blood Gas Refer to POC result
[2022-05-20] MEDS: Midazolam HCl/NS 50 MG/50 ML PLAST..BAG IVCONT ×2 (05:45→23:25)
[2022-05-20] MEDS: fentaNYL citrate/NS 1,000 MCG/100 ML PLAST..BAG 10 MCG IVCONT (05:50)
[2022-05-20 05:52] LABS: Anion Gap 13 (12-20); Blood Urea Nitrogen 13 mg/dL (9-16); Calcium 8.3 mg/dL (8.4-10.2); Carbon Dioxide 25 mmol/L (22-29); Chloride 102 mmol/L (96-108); Creatinine Clr Calc Pharmacy 205.2; Estimated Glomerular Filt Rate > 60; Glucose Random 155 mg/dL (60-115); Phosphorus 3.2 mg/dL (2.7-4.5); Potassium 4.4 mmol/L (3.3-5.1); Sodium 136 mmol/L (135-145)
[2022-05-20 06:27] LABS: Glucose, Whole Blood 162 mg/dL (60-115)
[2022-05-20] MEDS: Thiamine HCL 100 MG in 0.9 % Sodium Chloride 100 ML 200 MG IV (07:30)
[2022-05-20] MEDS: Famotidine/PF 20 MG/2 ML VIAL IVPUSH ×2 (07:30→19:54)
--- NOTE | 2022-05-20 09:03 | MHC.CLN ---
F/U PT WITH INCREASED NUTRITION RISK R/T LOW PABLO AND NPO STATUS PT IS NOW DAY 5 NPO PT RECEIVING PROPOFOL PROVIDING 1045KCALS FROM SEDATION (56% OF PT'S ESTIMATED KCALS NEEDS BASED ON IBW) IF ALTERNATIVE NUTRITION SUPPORT NEEDED PLEASE CONSULT RD
--- NOTE | 2022-05-20 10:59 | PM.CCPN ---
Subjective Subjective Date of Service: 05/20/22 Interval History: 56-year-old gentleman with underlying history of obesity, KD, CAD, hypertension, COPD, alcohol abuse, hepatitis-C, seizure disorder admitted on 05/15/2022 with angioedema of unclear etiology requiring emergent tracheostomy with hospital course further complicated by seizure and negative pressure pulmonary edema with acute hypoxic respiratory failure. Now improving slowly. No events overnight. Critical Care Time (minutes): 45 Physical Exam Vital Signs: Vital Signs: Last Vital Signs Temp 97.9 F 05/20/22 08:00 Pulse 48 L 05/20/22 10:50 Resp 16 05/20/22 10:50 BP 153/52 H 05/20/22 10:50 Pulse Ox 95 05/20/22 10:50 O2 Del Method 05/20/22 10:50 FiO2 50 05/20/22 10:50 BMI result Body Mass Index 44.1 Const: General: no acute distress and other (Sedated on the vent) Nutritional Appearance: obese Eyes: Sclerae: sclerae normal EOM: EOMs intact bilaterally Neck: Neck: Yes no lymphadenopathy and Yes other (Tracheostomy on vent) Resp: Effort & Inspection: normal respiratory effort and no respiratory distress Auscultation: clear to auscultation bilaterally Cardio: Rate: regular rate Rhythm: regular rhythm Heart sounds: no gallops, no murmurs and no rubs GI: Palpation (GI): Soft to palpation and Other GI palpation findings present ( Nontender) Auscultation: normal bowel sounds Extrem: General: No clubbing, No cyanosis and Yes edema (1+ bilateral) Objective Data Labs 05/20/22 05:24 05/20/22 05:24 Labs: Laboratory Results - last 24 hr 05/19/22 05/19/22 05/20/22 12:06 17:29 00:20 WBC RBC Hgb Hct MCV MCH MCHC RDW Plt Count MPV Immature Gran % (Auto) Neut % (Auto) Lymph % (Auto) [place] % (Auto) Eos % (Auto) Baso % (Auto) Lymph # (Auto) [place] # (Auto) Eos # (Auto) Baso # (Auto) Abs Immat Gran (auto) Absolute Neuts (auto) Absolute Nucleated RBC Nucleated RBC % (auto) VBG pH VBG pCO2 VBG pO2 VBG HCO3 VBG O2 Saturation VBG Base Excess Sodium Potassium Chloride Carbon Dioxide Anion Gap BUN Creatinine Estim Creat Clear Calc Estimated GFR POC Glucose 191 H 155 H 170 H Random Glucose Calcium Phosphorus Magnesium Albumin 05/20/22 05/20/22 05/20/22 05:24 05:24 05:29 WBC 6.0 RBC 3.55 L Hgb 12.8 L Hct 38.1 L MCV 107.3 H MCH 36.1 H MCHC 33.6 RDW 15.3 Plt Count 130 L MPV 10.0 Immature Gran % (Auto) 0.8 H Neut % (Auto) 71.4 Lymph % (Auto) 15.4 L [place] % (Auto) 12.0 H Eos % (Auto) 0.2 Baso % (Auto) 0.2 Lymph # (Auto) 0.9 L [place] # (Auto) 0.7 Eos # (Auto) 0.0 Baso # (Auto) 0.0 Abs Immat Gran (auto) 0.05 H Absolute Neuts (auto) 4.3 Absolute Nucleated RBC 0.000 Nucleated RBC % (auto) 0.0 VBG pH 7.53 H VBG pCO2 35 VBG pO2 75 VBG HCO3 30 H VBG O2 Saturation 94.0 VBG Base Excess 7.3 Sodium 136 Potassium 4.4 Chloride 102 Carbon Dioxide 25 Anion Gap 13 BUN 13 Creatinine 0.62 Estim Creat Clear Calc 205.2 Estimated GFR > 60 POC Glucose Random Glucose 155 H Calcium 8.3 L Phosphorus 3.2 Magnesium 2.0 Albumin 3.0 L 05/20/22 05:59 WBC RBC Hgb Hct MCV MCH MCHC RDW Plt Count MPV Immature Gran % (Auto) Neut % (Auto) Lymph % (Auto) [place] % (Auto) Eos % (Auto) Baso % (Auto) Lymph # (Auto) [place] # (Auto) Eos # (Auto) Baso # (Auto) Abs Immat Gran (auto) Absolute Neuts (auto) Absolute Nucleated RBC Nucleated RBC % (auto) VBG pH VBG pCO2 VBG pO2 VBG HCO3 VBG O2 Saturation VBG Base Excess Sodium Potassium Chloride Carbon Dioxide Anion Gap BUN Creatinine Estim Creat Clear Calc Estimated GFR POC Glucose 162 H Random Glucose Calcium Phosphorus Magnesium Albumin Microbiology Microbiology Results: Microbiology 05/18/22 15:10 Sputum - Suctioned Gram Stain - Final 05/18/22 15:10 Sputum - Suctioned Sputum Culture - Final Serratia marcescens Progress Note: A&P Assessment and plan (1) Acute non-cardiogenic pulmonary edema: Status: Acute (2) Acute hypoxemic respiratory failure: Status: Acute (3) Status post tracheostomy: Status: Acute (4) Morbid obesity: Status: Acute (5) KD (obstructive sleep apnea): Status: Acute (6) Insulin dependent type 2 diabetes mellitus: Status: Acute (7) CAD (coronary artery disease): Status: Acute (8) HTN (hypertension): Status: Acute (9) COPD (chronic obstructive pulmonary disease): Status: Acute Plan Assessment: Plan: Neuro: No acute issues. Cardiac: No acute issues. Underlying coronary artery disease. Pulmonary: Acute hypoxic respiratory failure on the background of angioedema requiring emergent tracheostomy, now on ventilatory support, improving slowly. Continue to titrate of ventilatory support as tolerated. Renal: No acute issues. Endo: No acute issues. GI: No acute issues. ID: No acute issues Heme/Onc: No acute issues. Psych: No acute issues. Miscellaneous: No acute issues. Prophylaxis: Heparin, famotidine Diet: Tube feeds Critical care time spent: 45 minutes Quality Stroke Does the patient have a stroke diagnosis?: No VTE Prior VTE?: No VTE Risk Level:: Medical - moderate - high VTE Device Contraindication: N/A - Device Ordered VTE Drug Contraindication: N/A - Med Ordered
[2022-05-20 12:05] LABS: Glucose, Whole Blood 169 mg/dL (60-115)
[2022-05-20] MEDS: fentaNYL citrate/NS 1,000 MCG/100 ML PLAST..BAG 12.5 MCG IVCONT (14:45)
[2022-05-20 17:44] LABS: Glucose, Whole Blood 109 mg/dL (60-115)
--- NOTE | 2022-05-20 18:09 | PC.NURSE ---
Pt continues to be sedated and trached on vent AC settings of 16/500/5/50%, tolerating with otherwise frequent coughing, inline secretions of thick copious amount of white secretions, suctioned PRN, small amount of yellowish with red tinged secretions oozing from around trach site when coughing, dressing changed PRN. Pt continues to be SB from high 40s to SR in the 80s on tele. Pt waking up and following commands but intermittently getting restless and agitated as well as resistive to care, requiring frequent redirections and fentanyl gtt titration for pt's comfort. Pt bathed and repositioned every 2 hrs and as needed, prevalon system and turning bed utilized. Pt is otherwise in no acute distress. VSS. Safety maintained throughout. Family updated of plan of care, all questions answered. Will continue to monitor.
[2022-05-20] MEDS: Midazolam HCl/PF 2 MG/2 ML VIAL 1 MG IVPUSH (19:54)
[2022-05-20] MEDS: fentaNYL citrate/NS 1,000 MCG/100 ML PLAST..BAG 17.5 MCG IVCONT (21:15)
[2022-05-20] MEDS: Midazolam HCl/PF 2 MG/2 ML VIAL IVPUSH (21:43)
[2022-05-21] VITALS (34 sets, daily range): BP systolic 100–176; BP diastolic 52–95; PULSE 49–60; RESP 12–26; TEMP 34.7–36.6; O2SAT 91–97; BMI 43.9
[2022-05-21 00:33] LABS: Glucose, Whole Blood 103 mg/dL (60-115)
[2022-05-21] MEDS: propofoL 1,000 MG/100 ML VIAL 39.6 MG IVCONT ×4 (02:23→09:41)
[2022-05-21] MEDS: fentaNYL citrate/NS 1,000 MCG/100 ML PLAST..BAG 17.5 MCG IVCONT ×2 (03:09→08:43)
[2022-05-21 05:05] LABS: VBG Base Excess 7.4 mmol/L; VBG HCO3 31 mmol/L (22-26); VBG pCO2 41 mmHg; VBG pH 7.48 (7.32-7.43); VBG pO2 58 mmHg
[2022-05-21 05:19] LABS: MANUAL DIFF FLAG NO
[2022-05-21 05:20] LABS: Basophils Percent Auto 0.6 % (0-2); Eosinophils Absolute Auto 0.1 X10*3/uL (0.0-0.4); Eosinophils Percent Auto 1.7 % (0-4); Hematocrit 38.6 % (42.0-52.0); Hemoglobin 12.9 g/dl (14.0-18.0); Imm Gran Abs Auto 0.05 X10*3/uL (0.00-0.03); Imm Gran Pct Auto 0.8 % (0.0-0.4); Lymphocytes Absolute Auto 1.4 X10*3/uL (1.2-4.9); Lymphocytes Percent Auto 22.3 % (20-40); Mean Corpuscular HGB Conc 33.4 g/dl (31.0-36.0); Mean Corpuscular Hemoglobin 36.2 pg (27.0-33.0); Mean Corpuscular Volume 108.4 fL (80.0-98.0); Mean Platelet Volume 10.3 fL (9.4-12.4); Monocytes Percent Auto 14.9 % (2-11); Neutrophils Absolute Auto 3.9 x10*3/uL (2.0-8.3); Neutrophils Percent Auto 59.7 % (45-73); Platelet Count 143 X10*3/uL (160-400); Red Blood Count 3.56 X10*6/uL (4.60-5.80); Red Cell Distribution Width 15.5 % (11.0-16.0); White Blood Count 6.5 X10*3/uL (4.8-10.8)
[2022-05-21 05:21] LABS: Venous Blood Gas Refer to POC result
--- NOTE | 2022-05-21 05:23 | PC.NURSE ---
assumed care 1900 pt remains sedated on vent, opens eyes to name, tracks and follows does not follow commands, bp stable, sb on tele, pt continuously coughing, suction moderate amount thick white secretions, pt reaching for tube, new order for versed drip 2mg/hr,
[2022-05-21 05:36] LABS: Anion Gap 14 (12-20); Blood Urea Nitrogen 14 mg/dL (9-16); Calcium 8.4 mg/dL (8.4-10.2); Carbon Dioxide 27 mmol/L (22-29); Chloride 103 mmol/L (96-108); Creatinine Clr Calc Pharmacy 205.2; Estimated Glomerular Filt Rate > 60; Glucose Random 91 mg/dL (60-115); Magnesium 1.9 mg/dL (1.6-2.6); Phosphorus 3.2 mg/dL (2.7-4.5); Potassium 3.5 mmol/L (3.3-5.1); Sodium 140 mmol/L (135-145)
[2022-05-21] MEDS: Albuterol Sulfate (0.083%) 2.5 MG/3 ML VIAL.NEB INHALE ×3 (06:06→17:42)
[2022-05-21] MEDS: Potassium Chloride/H20 10 MEQ/100 ML PIGGYBACK 100 MEQ IV ×4 (07:58→11:56)
[2022-05-21] MEDS: Thiamine HCL 100 MG in 0.9 % Sodium Chloride 100 ML 200 MG IV (08:42)
[2022-05-21] MEDS: Heparin Sodium,Porcine 5,000 UNIT/ML VIAL 5000 UNIT SUBCUT ×2 (08:42→15:52)
[2022-05-21] MEDS: Chlorhexidine Gluc Oral Rinse 15 ML MOUTHWASH BUCCAL ×2 (08:43→15:53)
[2022-05-21] MEDS: Famotidine/PF 20 MG/2 ML VIAL IVPUSH ×2 (08:43→20:12)
[2022-05-21] MEDS: dexmedeTOMIDidine HCL/NS 400 MCG/100 ML INFUS..BTL 38.75 MCG IVCONT (09:00)
--- NOTE | 2022-05-21 10:00 | MHC.CLN ---
F/U PT WITH INCREASED NUTRITION RISK R/T LOW PABLO AND NPO STATUS DISCUSSED AT ROUNDS WITH PT IS NOW DAY 6 NPO PT RECEIVING PROPOFOL PROVIDING 1045KCALS FROM SEDATION (56% OF PT'S ESTIMATED KCALS NEEDS BASED ON IBW) IF ALTERNATIVE NUTRITION SUPPORT NEEDED PLEASE CONSULT RD
--- NOTE | 2022-05-21 10:18 | PM.CCPN ---
Subjective Subjective Date of Service: 05/21/22 Interval History: 56-year-old gentleman with underlying history of obesity, KD, CAD, hypertension, COPD, alcohol abuse, hepatitis-C, seizure disorder admitted on 05/15/2022 with angioedema of unclear etiology requiring emergent tracheostomy with hospital course further complicated by seizure and negative pressure pulmonary edema with acute hypoxic respiratory failure. Now improving slowly. No events overnight. Poor tolerance of pressure support secondary to agitation. Critical Care Time (minutes): 45 Physical Exam Vital Signs: Vital Signs: Last Vital Signs Temp 97.0 F 05/21/22 08:00 Pulse 58 05/21/22 10:00 Resp 12 05/21/22 10:00 BP 168/90 H 05/21/22 10:00 Pulse Ox 93 05/21/22 10:00 O2 Del Method 05/21/22 10:00 FiO2 50 05/21/22 10:00 BMI result Body Mass Index 43.9 Const: General: no acute distress and other ( Sedated on the vent) Nutritional Appearance: obese Eyes: Sclerae: sclerae normal EOM: EOMs intact bilaterally Neck: Neck: Yes no lymphadenopathy, Yes supple and Yes other ( tracheostomy on the vent) Resp: Effort & Inspection: normal respiratory effort and no respiratory distress Auscultation: clear to auscultation bilaterally Cardio: Rate: regular rate Rhythm: regular rhythm Heart sounds: no gallops, no murmurs and no rubs GI: Palpation (GI): Soft to palpation and Other GI palpation findings present ( Nontender) Auscultation: normal bowel sounds Extrem: General: No clubbing, No cyanosis and Yes edema (1+ bilateral) Objective Data Labs 05/21/22 04:59 05/21/22 04:59 Labs: Laboratory Results - last 24 hr 05/20/22 05/20/22 05/21/22 12:01 17:39 00:28 WBC RBC Hgb Hct MCV MCH MCHC RDW Plt Count MPV Immature Gran % (Auto) Neut % (Auto) Lymph % (Auto) [place] % (Auto) Eos % (Auto) Baso % (Auto) Lymph # (Auto) [place] # (Auto) Eos # (Auto) Baso # (Auto) Abs Immat Gran (auto) Absolute Neuts (auto) Absolute Nucleated RBC Nucleated RBC % (auto) VBG pH VBG pCO2 VBG pO2 VBG HCO3 VBG O2 Saturation VBG Base Excess Sodium Potassium Chloride Carbon Dioxide Anion Gap BUN Creatinine Estim Creat Clear Calc Estimated GFR POC Glucose 169 H 109 103 Random Glucose Calcium Phosphorus Magnesium Albumin 05/21/22 05/21/22 05/21/22 04:57 04:59 04:59 WBC 6.5 RBC 3.56 L Hgb 12.9 L Hct 38.6 L MCV 108.4 H MCH 36.2 H MCHC 33.4 RDW 15.5 Plt Count 143 L MPV 10.3 Immature Gran % (Auto) 0.8 H Neut % (Auto) 59.7 Lymph % (Auto) 22.3 [place] % (Auto) 14.9 H Eos % (Auto) 1.7 Baso % (Auto) 0.6 Lymph # (Auto) 1.4 [place] # (Auto) 1.0 Eos # (Auto) 0.1 Baso # (Auto) 0.0 Abs Immat Gran (auto) 0.05 H Absolute Neuts (auto) 3.9 Absolute Nucleated RBC 0.000 Nucleated RBC % (auto) 0.0 VBG pH 7.48 H VBG pCO2 41 VBG pO2 58 VBG HCO3 31 H VBG O2 Saturation 84.0 VBG Base Excess 7.4 Sodium 140 Potassium 3.5 D Chloride 103 Carbon Dioxide 27 Anion Gap 14 BUN 14 Creatinine 0.62 Estim Creat Clear Calc 205.2 Estimated GFR > 60 POC Glucose Random Glucose 91 Calcium 8.4 Phosphorus 3.2 Magnesium 1.9 Albumin 3.0 L Microbiology Microbiology Results: Microbiology 05/18/22 15:10 Sputum - Suctioned Gram Stain - Final 05/18/22 15:10 Sputum - Suctioned Sputum Culture - Final Serratia marcescens Progress Note: A&P Assessment and plan (1) Diastolic CHF: Status: Acute (2) Delirium tremens: Status: Acute (3) Acute non-cardiogenic pulmonary edema: Status: Acute (4) Acute hypoxemic respiratory failure: Status: Acute (5) Status post tracheostomy: Status: Acute (6) Angioedema: Status: Acute (7) Morbid obesity: Status: Acute (8) KD (obstructive sleep apnea): Status: Acute (9) Diabetes: Status: Acute (10) Diabetic neuropathy: Status: Acute (11) CAD (coronary artery disease): Status: Acute (12) HTN (hypertension): Status: Acute (13) COPD (chronic obstructive pulmonary disease): Status: Acute (14) Restrictive airway disease: Status: Acute Plan Assessment: 56-year-old gentleman with underlying morbid obesity, KD, alcohol abuse admitted with angioedema requiring emergent tracheostomy with hospital course also complicated by delirium tremens, now improving slowly. Plan: Neuro: Delirium tremens, continue to titrate of sedative drips as tolerated. Cardiac: No acute issues. Underlying coronary artery disease. Pulmonary: Acute hypoxic respiratory failure on the background of angioedema requiring emergent tracheostomy, now on ventilatory support, improving slowly. Continue to titrate off ventilatory support as tolerated. Renal: No acute issues. Endo: No acute issues. GI: No acute issues. ID: No acute issues Heme/Onc: No acute issues. Psych: No acute issues. Miscellaneous: No acute issues. Prophylaxis: Heparin, famotidine Diet: Tube feeds Critical care time spent: 45 minutes Quality Stroke Does the patient have a stroke diagnosis?: No VTE Prior VTE?: No VTE Risk Level:: Medical - moderate - high VTE Device Contraindication: N/A - Device Ordered VTE Drug Contraindication: N/A - Med Ordered
[2022-05-21] MEDS: dexmedeTOMIDidine HCL/NS 400 MCG/100 ML INFUS..BTL 54.25 MCG IVCONT (10:51)
[2022-05-21] MEDS: Insulin Lispro 100 UNIT/ML 3 ML VIAL SUBCUT ×2 (11:58→17:42)
[2022-05-21 12:02] LABS: Glucose, Whole Blood 176 mg/dL (60-115)
[2022-05-21] MEDS: dexmedeTOMIDidine HCL/NS 400 MCG/100 ML INFUS..BTL 58.13 MCG IVCONT ×7 (12:31→22:32)
[2022-05-21] MEDS: propofoL 200 MG/20 ML VIAL 90 MG IVPUSH (12:45)
[2022-05-21] MEDS: propofoL 1,000 MG/100 ML VIAL 31.68 MG IVCONT ×4 (14:18→22:31)
[2022-05-21 17:41] LABS: Glucose, Whole Blood 210 mg/dL (60-115)
[2022-05-21 23:29] LABS: Glucose, Whole Blood 186 mg/dL (60-115)
[2022-05-22] VITALS (32 sets, daily range): BP systolic 120–153; BP diastolic 68–96; PULSE 55–121; RESP 12–34; TEMP 35–37.3; O2SAT 87–98; BMI 43.3
[2022-05-22] MEDS: Insulin Lispro 100 UNIT/ML 3 ML VIAL SUBCUT ×3 (00:01→12:29)
[2022-05-22] MEDS: dexmedeTOMIDidine HCL/NS 400 MCG/100 ML INFUS..BTL 58.13 MCG IVCONT ×6 (00:17→08:32)
[2022-05-22] MEDS: Heparin Sodium,Porcine 5,000 UNIT/ML VIAL 5000 UNIT SUBCUT ×2 (00:18→17:05)
[2022-05-22] MEDS: Chlorhexidine Gluc Oral Rinse 15 ML MOUTHWASH BUCCAL ×2 (00:18→07:37)
[2022-05-22] MEDS: Albuterol Sulfate (0.083%) 2.5 MG/3 ML VIAL.NEB INHALE ×5 (00:42→23:06)
[2022-05-22] MEDS: propofoL 1,000 MG/100 ML VIAL 31.68 MG IVCONT ×3 (01:41→07:37)
[2022-05-22] MEDS: fentaNYL citrate/NS 1,000 MCG/100 ML PLAST..BAG 5 MCG IVCONT (01:42)
[2022-05-22 05:25] LABS: VBG Base Excess 4.2 mmol/L; VBG HCO3 27 mmol/L (22-26); VBG pCO2 35 mmHg; VBG pH 7.49 (7.32-7.43); VBG pO2 76 mmHg
[2022-05-22 06:03] LABS: MANUAL DIFF FLAG NO
[2022-05-22 06:03] LABS: Glucose, Whole Blood 171 mg/dL (60-115)
[2022-05-22 06:25] LABS: Albumin Level 3.1 g/dL (3.5-5.0); Anion Gap 16 (12-20); Blood Urea Nitrogen 11 mg/dL (9-16); Calcium 8.4 mg/dL (8.4-10.2); Carbon Dioxide 24 mmol/L (22-29); Chloride 100 mmol/L (96-108); Creatinine Clr Calc Pharmacy 193.7; Estimated Glomerular Filt Rate > 60; Glucose Random 178 mg/dL (60-115); Magnesium 1.6 mg/dL (1.6-2.6); Potassium 3.7 mmol/L (3.3-5.1); Sodium 136 mmol/L (135-145)
[2022-05-22 06:47] LABS: Basophils Absolute Auto 0.1 X10*3/uL (0.0-0.2); Basophils Percent Auto 0.8 % (0-2); Eosinophils Absolute Auto 0.1 X10*3/uL (0.0-0.4); Eosinophils Percent Auto 1.4 % (0-4); Hematocrit 43.3 % (42.0-52.0); Imm Gran Abs Auto 0.06 X10*3/uL (0.00-0.03); Imm Gran Pct Auto 0.8 % (0.0-0.4); Lymphocytes Absolute Auto 1.2 X10*3/uL (1.2-4.9); Lymphocytes Percent Auto 15.4 % (20-40); Mean Corpuscular HGB Conc 34.6 g/dl (31.0-36.0); Mean Corpuscular Hemoglobin 36.7 pg (27.0-33.0); Mean Corpuscular Volume 105.9 fL (80.0-98.0); Mean Platelet Volume 10.9 fL (9.4-12.4); Monocytes Percent Auto 12.7 % (2-11); Neutrophils Absolute Auto 5.3 x10*3/uL (2.0-8.3); Neutrophils Percent Auto 68.9 % (45-73); Platelet Count 147 X10*3/uL (160-400); Red Blood Count 4.09 X10*6/uL (4.60-5.80); Red Cell Distribution Width 14.6 % (11.0-16.0); White Blood Count 7.7 X10*3/uL (4.8-10.8)
[2022-05-22] MEDS: Thiamine HCL 100 MG in 0.9 % Sodium Chloride 100 ML 200 MG IV (07:37)
[2022-05-22] MEDS: Famotidine/PF 20 MG/2 ML VIAL IVPUSH ×2 (07:37→21:30)
[2022-05-22 08:48] LABS: Venous Blood Gas Refer to POC result
[2022-05-22] MEDS: Haloperidol Lactate 5 MG/ML VIAL 10 MG IVPUSH (10:01)
[2022-05-22] MEDS: Midazolam HCl/PF 2 MG/2 ML VIAL 4 MG IVPUSH (10:19)
[2022-05-22 11:20] LABS: Glucose, Whole Blood 164 mg/dL (60-115)
--- NOTE | 2022-05-22 11:45 | P.PNCC_ITS ---
Subjective Subjective Date of Service: 05/22/22 Interval History: 56-year-old gentleman with underlying history of obesity, KD, CAD, hypertension, COPD, alcohol abuse, hepatitis-C, seizure disorder admitted on 05/15/2022 with angioedema of unclear etiology requiring emergent tracheostomy with hospital course further complicated by seizure and negative pressure pulmonary edema with acute hypoxic respiratory failure. Now improving slowly. No events overnight. Titrated to tracheal collar today. However, remains still significantly agitated. Pulled out his NG tube. Critical Care Time (minutes): 45 Physical Exam Vital Signs: Vital Signs: Last Vital Signs Temp 97.5 F 05/22/22 11:00 Pulse 60 05/22/22 11:19 Resp 22 H 05/22/22 11:19 BP 124/76 05/22/22 11:00 Pulse Ox 92 05/22/22 11:00 O2 Del Method 05/22/22 11:00 FiO2 40 05/22/22 11:00 BMI result Body Mass Index 43.3 Const: General: no acute distress, alert and awake Nutritional Appearance: obese Eyes: Sclerae: sclerae normal EOM: EOMs intact bilaterally Neck: Neck: Yes no lymphadenopathy, Yes trachea midline, Yes supple and Yes other ( tracheostomy on tracheal collar) Resp: Effort & Inspection: normal respiratory effort and no respiratory distress Auscultation: clear to auscultation bilaterally Cardio: Rate: regular rate Rhythm: regular rhythm Heart sounds: no gallops, no murmurs and no rubs GI: Palpation (GI): Soft to palpation and Other GI palpation findings present ( Nontender) Auscultation: normal bowel sounds Extrem: General: No clubbing, No cyanosis and Yes edema ( trace bilateral) Objective Data Labs 05/22/22 05:16 05/22/22 05:16 Labs: Laboratory Results - last 24 hr 05/21/22 05/21/22 05/21/22 11:56 17:38 23:23 WBC RBC Hgb Hct MCV MCH MCHC RDW Plt Count MPV Immature Gran % (Auto) Neut % (Auto) Lymph % (Auto) [place] % (Auto) Eos % (Auto) Baso % (Auto) Lymph # (Auto) [place] # (Auto) Eos # (Auto) Baso # (Auto) Abs Immat Gran (auto) Absolute Neuts (auto) Absolute Nucleated RBC Nucleated RBC % (auto) VBG pH VBG pCO2 VBG pO2 VBG HCO3 VBG O2 Saturation VBG Base Excess Sodium Potassium Chloride Carbon Dioxide Anion Gap BUN Creatinine Estim Creat Clear Calc Estimated GFR POC Glucose 176 H 210 H 186 H Random Glucose Calcium Phosphorus Magnesium Albumin 05/22/22 05/22/22 05/22/22 05:16 05:16 05:17 WBC 7.7 RBC 4.09 L Hgb 15.0 Hct 43.3 MCV 105.9 H MCH 36.7 H MCHC 34.6 RDW 14.6 Plt Count 147 L MPV 10.9 Immature Gran % (Auto) 0.8 H Neut % (Auto) 68.9 Lymph % (Auto) 15.4 L [place] % (Auto) 12.7 H Eos % (Auto) 1.4 Baso % (Auto) 0.8 Lymph # (Auto) 1.2 [place] # (Auto) 1.0 Eos # (Auto) 0.1 Baso # (Auto) 0.1 Abs Immat Gran (auto) 0.06 H Absolute Neuts (auto) 5.3 Absolute Nucleated RBC 0.000 Nucleated RBC % (auto) 0.0 VBG pH 7.49 H VBG pCO2 35 VBG pO2 76 VBG HCO3 27 H VBG O2 Saturation 94.0 VBG Base Excess 4.2 Sodium 136 Potassium 3.7 Chloride 100 Carbon Dioxide 24 Anion Gap 16 BUN 11 Creatinine 0.65 Estim Creat Clear Calc 193.7 Estimated GFR > 60 POC Glucose Random Glucose 178 H Calcium 8.4 Phosphorus 4.0 Magnesium 1.6 Albumin 3.1 L 05/22/22 05/22/22 06:00 11:16 WBC RBC Hgb Hct MCV MCH MCHC RDW Plt Count MPV Immature Gran % (Auto) Neut % (Auto) Lymph % (Auto) [place] % (Auto) Eos % (Auto) Baso % (Auto) Lymph # (Auto) [place] # (Auto) Eos # (Auto) Baso # (Auto) Abs Immat Gran (auto) Absolute Neuts (auto) Absolute Nucleated RBC Nucleated RBC % (auto) VBG pH VBG pCO2 VBG pO2 VBG HCO3 VBG O2 Saturation VBG Base Excess Sodium Potassium Chloride Carbon Dioxide Anion Gap BUN Creatinine Estim Creat Clear Calc Estimated GFR POC Glucose 171 H 164 H Random Glucose Calcium Phosphorus Magnesium Albumin Microbiology Microbiology Results: Microbiology 05/18/22 15:10 Sputum - Suctioned Gram Stain - Final 05/18/22 15:10 Sputum - Suctioned Sputum Culture - Final Serratia marcescens Progress Note: A&P Assessment and plan (1) Diastolic CHF: Status: Acute (2) Delirium tremens: Status: Acute (3) Acute non-cardiogenic pulmonary edema: Status: Acute (4) Acute hypoxemic respiratory failure: Status: Acute (5) Status post tracheostomy: Status: Acute (6) Angioedema: Status: Acute (7) KD (obstructive sleep apnea): Status: Acute (8) Diabetes: Status: Acute (9) CAD (coronary artery disease): Status: Acute (10) COPD (chronic obstructive pulmonary disease): Status: Acute (11) HTN (hypertension): Status: Acute (12) Restrictive airway disease: Status: Acute (13) Morbid obesity: Status: Acute Plan Assessment: 56-year-old gentleman with underlying morbid obesity, KD, alcohol abuse admitted with angioedema requiring emergent tracheostomy with hospital course also complicated by delirium tremens, now improving slowly. Plan: Neuro: Delirium tremens, improving, continue to titrate off sedative drips as tolerated. Cardiac: No acute issues. Underlying coronary artery disease. Pulmonary: Acute hypoxic respiratory failure on the background of angioedema requiring emergent tracheostomy, now tolerating tracheal collar with tracheostomy cuff down. improving slowly. Renal: No acute issues. Endo: No acute issues. GI: No acute issues. ID: No acute issues Heme/Onc: No acute issues. Psych: No acute issues. Miscellaneous: No acute issues. Prophylaxis: Heparin, famotidine Diet: pending swallow evaluation Critical care time spent: 45 minutes Quality Stroke Does the patient have a stroke diagnosis?: No VTE Prior VTE?: No VTE Risk Level:: Medical - moderate - high VTE Device Contraindication: N/A - Device Ordered VTE Drug Contraindication: N/A - Med Ordered
--- NOTE | 2022-05-22 12:30 | MHC.CM.PN ---
Per ICU rounds Patient remains in ICU today. Plan to decrease sedation. DC andino cath apply [place] cath. Resp to apply trach collar. DP Home new vna vs str. Dispo to be determined by patients recovery and PT eval;bwhic is pending medical clearance.
[2022-05-22 16:23] LABS: Glucose, Whole Blood 138 mg/dL (60-115)
[2022-05-22 20:22] LABS: Glucose, Whole Blood 136 mg/dL (60-115)
[2022-05-23] VITALS (28 sets, daily range): BP systolic 123–161; BP diastolic 76–106; PULSE 99–124; RESP 15–35; TEMP 36.2–36.9; O2SAT 91–96; BMI 43.7
[2022-05-23] MEDS: Heparin Sodium,Porcine 5,000 UNIT/ML VIAL 5000 UNIT SUBCUT ×3 (00:35→16:53)
[2022-05-23] MEDS: Albuterol Sulfate (0.083%) 2.5 MG/3 ML VIAL.NEB INHALE ×4 (05:04→23:40)
[2022-05-23 05:29] LABS: VBG Base Excess 3.2 mmol/L; VBG HCO3 25 mmol/L (22-26); VBG pCO2 30 mmHg; VBG pH 7.52 (7.32-7.43); VBG pO2 75 mmHg
[2022-05-23 06:24] LABS: Basophils Percent Auto 0.3 % (0-2); Eosinophils Percent Auto 0.1 % (0-4); Hematocrit 43.7 % (42.0-52.0); Imm Gran Abs Auto 0.08 X10*3/uL (0.00-0.03); Imm Gran Pct Auto 0.6 % (0.0-0.4); Lymphocytes Absolute Auto 0.8 X10*3/uL (1.2-4.9); Lymphocytes Percent Auto 5.7 % (20-40); MANUAL DIFF FLAG SCAN; Mean Corpuscular HGB Conc 34.3 g/dl (31.0-36.0); Mean Corpuscular Hemoglobin 35.5 pg (27.0-33.0); Mean Corpuscular Volume 103.6 fL (80.0-98.0); Mean Platelet Volume 10.6 fL (9.4-12.4); Monocytes Absolute Auto 1.7 X10*3/uL (0.1-1.2); Monocytes Percent Auto 12.6 % (2-11); Neutrophils Absolute Auto 10.8 x10*3/uL (2.0-8.3); Neutrophils Percent Auto 80.7 % (45-73); Platelet Count 168 X10*3/uL (160-400); Red Blood Count 4.22 X10*6/uL (4.60-5.80); Red Cell Distribution Width 14.6 % (11.0-16.0); SCAN SMEAR FLAG 1; White Blood Count 13.4 X10*3/uL (4.8-10.8)
[2022-05-23 06:54] LABS: Albumin Level 3.3 g/dL (3.5-5.0); Anion Gap 20 (12-20); Blood Urea Nitrogen 11 mg/dL (9-16); Calcium 8.9 mg/dL (8.4-10.2); Carbon Dioxide 22 mmol/L (22-29); Chloride 102 mmol/L (96-108); Creatinine Clr Calc Pharmacy 204.1; Estimated Glomerular Filt Rate > 60; Glucose Random 120 mg/dL (60-115); Magnesium 1.7 mg/dL (1.6-2.6); Phosphorus 2.9 mg/dL (2.7-4.5); Potassium 3.5 mmol/L (3.3-5.1); SLIDE REVIEW VERIFIED; Sodium 140 mmol/L (135-145)
[2022-05-23 07:18] LABS: Venous Blood Gas Refer to POC result
[2022-05-23] MEDS: Famotidine/PF 20 MG/2 ML VIAL IVPUSH (07:40)
[2022-05-23] MEDS: Thiamine HCL 100 MG in 0.9 % Sodium Chloride 100 ML 202 MG IV (07:40)
[2022-05-23 07:41] LABS: Glucose, Whole Blood 135 mg/dL (60-115)
[2022-05-23] MEDS: Potassium Chloride/H20 10 MEQ/100 ML PIGGYBACK 100 MEQ IV ×4 (08:35→12:42)
--- NOTE | 2022-05-23 10:31 | PM.CCPN ---
Subjective Subjective Date of Service: 05/23/22 Interval History: 56-year-old gentleman with underlying history of obesity, KD, CAD, hypertension, COPD, alcohol abuse, hepatitis-C, seizure disorder admitted on 05/15/2022 with angioedema of unclear etiology requiring emergent tracheostomy with hospital course further complicated by seizure and negative pressure pulmonary edema with acute hypoxic respiratory failure. Now tolerating tracheal collar. No events overnight. Passed swallow evaluation. Critical Care Time (minutes): 45 Physical Exam Vital Signs: Vital Signs: Last Vital Signs Temp 97.2 F 05/23/22 08:00 Pulse 100 05/23/22 10:00 Resp 15 05/23/22 10:00 BP 160/97 H 05/23/22 10:00 Pulse Ox 94 05/23/22 10:00 O2 Del Method 05/23/22 10:00 O2 Flow Rate 10 05/23/22 10:00 FiO2 40 05/22/22 21:00 BMI result Body Mass Index 43.7 Const: General: no acute distress, alert and awake Nutritional Appearance: obese Eyes: Sclerae: sclerae normal EOM: EOMs intact bilaterally Neck: Neck: Yes no lymphadenopathy, Yes trachea midline, Yes supple and Yes other (Tracheostomy on tracheal collar) Resp: Effort & Inspection: normal respiratory effort and no respiratory distress Auscultation: clear to auscultation bilaterally Cardio: Rate: regular rate Rhythm: regular rhythm Heart sounds: no gallops, no murmurs and no rubs GI: Palpation (GI): Soft to palpation and Other GI palpation findings present ( Nontender) Auscultation: normal bowel sounds Extrem: General: No clubbing, No cyanosis and Yes edema (Trace bilateral) Objective Data Labs 05/23/22 05:24 05/23/22 05:24 Labs: Laboratory Results - last 24 hr 05/22/22 05/22/22 05/22/22 11:16 16:20 20:19 WBC RBC Hgb Hct MCV MCH MCHC RDW Plt Count MPV Immature Gran % (Auto) Neut % (Auto) Lymph % (Auto) [place] % (Auto) Eos % (Auto) Baso % (Auto) Lymph # (Auto) [place] # (Auto) Eos # (Auto) Baso # (Auto) Abs Immat Gran (auto) Absolute Neuts (auto) Absolute Nucleated RBC Nucleated RBC % (auto) Smear Tech's Comments VBG pH VBG pCO2 VBG pO2 VBG HCO3 VBG O2 Saturation VBG Base Excess Sodium Potassium Chloride Carbon Dioxide Anion Gap BUN Creatinine Estim Creat Clear Calc Estimated GFR POC Glucose 164 H 138 H 136 H Random Glucose Calcium Phosphorus Magnesium Albumin 05/23/22 05/23/22 05/23/22 05:21 05:24 05:24 WBC 13.4 H RBC 4.22 L Hgb 15.0 Hct 43.7 MCV 103.6 H MCH 35.5 H MCHC 34.3 RDW 14.6 Plt Count 168 MPV 10.6 Immature Gran % (Auto) 0.6 H Neut % (Auto) 80.7 H Lymph % (Auto) 5.7 L [place] % (Auto) 12.6 H Eos % (Auto) 0.1 Baso % (Auto) 0.3 Lymph # (Auto) 0.8 L [place] # (Auto) 1.7 H Eos # (Auto) 0.0 Baso # (Auto) 0.0 Abs Immat Gran (auto) 0.08 H Absolute Neuts (auto) 10.8 H Absolute Nucleated RBC 0.000 Nucleated RBC % (auto) 0.0 Smear Tech's Comments VERIFIED VBG pH 7.52 H VBG pCO2 30 VBG pO2 75 VBG HCO3 25 VBG O2 Saturation 94.0 VBG Base Excess 3.2 Sodium 140 Potassium 3.5 Chloride 102 Carbon Dioxide 22 Anion Gap 20 BUN 11 Creatinine 0.62 Estim Creat Clear Calc 204.1 Estimated GFR > 60 POC Glucose Random Glucose 120 H Calcium 8.9 Phosphorus 2.9 Magnesium 1.7 Albumin 3.3 L 05/23/22 07:38 WBC RBC Hgb Hct MCV MCH MCHC RDW Plt Count MPV Immature Gran % (Auto) Neut % (Auto) Lymph % (Auto) [place] % (Auto) Eos % (Auto) Baso % (Auto) Lymph # (Auto) [place] # (Auto) Eos # (Auto) Baso # (Auto) Abs Immat Gran (auto) Absolute Neuts (auto) Absolute Nucleated RBC Nucleated RBC % (auto) Smear Tech's Comments VBG pH VBG pCO2 VBG pO2 VBG HCO3 VBG O2 Saturation VBG Base Excess Sodium Potassium Chloride Carbon Dioxide Anion Gap BUN Creatinine Estim Creat Clear Calc Estimated GFR POC Glucose 135 H Random Glucose Calcium Phosphorus Magnesium Albumin Microbiology Microbiology Results: Microbiology 05/18/22 15:10 Sputum - Suctioned Gram Stain - Final 05/18/22 15:10 Sputum - Suctioned Sputum Culture - Final Serratia marcescens Progress Note: A&P Assessment and plan (1) Diastolic CHF: Status: Acute (2) Delirium tremens: Status: Acute (3) Acute non-cardiogenic pulmonary edema: Status: Acute (4) Acute hypoxemic respiratory failure: Status: Acute (5) Status post tracheostomy: Status: Acute (6) Diabetes: Status: Acute (7) CAD (coronary artery disease): Status: Acute (8) HTN (hypertension): Status: Acute (9) COPD (chronic obstructive pulmonary disease): Status: Acute (10) Restrictive airway disease: Status: Acute (11) History of hepatitis C: Status: Acute Plan Assessment: 56-year-old gentleman with underlying morbid obesity, KD, alcohol abuse admitted with angioedema requiring emergent tracheostomy with hospital course also complicated by delirium tremens, now improving slowly. Plan: Neuro: Delirium tremens, resolved, titrated off sedative drips. Cardiac: No acute issues. Underlying coronary artery disease. Pulmonary: Acute hypoxic respiratory failure on the background of angioedema requiring emergent tracheostomy, now tolerating tracheal collar with tracheostomy cuff down. Improving slowly. Speaking valve trial today. Renal: No acute issues. Endo: No acute issues. GI: No acute issues. ID: No acute issues Heme/Onc: No acute issues. Psych: No acute issues. Miscellaneous: No acute issues. Prophylaxis: Heparin Diet: Diabetic Critical care time spent: 45 minutes Quality Stroke Does the patient have a stroke diagnosis?: No VTE Prior VTE?: No VTE Risk Level:: Medical - moderate - high VTE Device Contraindication: N/A - Device Ordered VTE Drug Contraindication: N/A - Med Ordered
[2022-05-23 11:32] LABS: Glucose, Whole Blood 154 mg/dL (60-115)
--- NOTE | 2022-05-23 11:47 | MHC.SL.SWA ---
Speech Pathologist Impression: Risk of Aspiration Due to: Tracheostomy Dysphasia Diet Status: Liquid Consistency and Strategies for Safe Swallow: Liquid Intake Recommendation: Thin Liquid Intake Strategies: Small Sips Solid Food Consistency: Dietary Recommendations: Pureed (NDD1) Additional Modifications to Solid Foods: Trach cuff must be deflated, and when patient has Passy Samantha Valve and is tolerating having it in place, Passy [place] should be on for all meals. Provide oral care, trach care before and after meals. Patient currently has upper extremity weakness, will need full assist with all meals. Discontinue if airway becomes congested, coughing is noted, change in O2 sats noted and persistant. Patient may need short breaks during meal due to fatigue. Do not feed if patient is lethargic or not engaged with meal. Oral Medication Intake: Crushed with Puree Please contact the pharmacy regarding appropriate crushable or liquid drug formulations that are available whenever modified delivery is recommended. Compensatory Strategies and Precautions to be Taken for Safe Swallow: Sitting Upright (90 deg) No Straw Liquids from Cup Small Bites and Sips Alternate Liquids/Solids Rate of Ingestion Change Supervision While Eating and Drinking for Safe Swallow: Total Assistance (1:1) Foods to Avoid: Very sticky or congealed purees. Swallowing Recommended Treatments: Compens. Strategy Educat. Recommendation for Speech: Inpatient Speech Therapy Comment: Patient tolerated water (thin liquid) by cup sip and spoon, and repeated presentations of puree this morning with no clinical signs of aspiration. Patient had already been placed on diet by MD (Puree with [place] Thick Liquids) recommend UPGRADE to Thin liquids, continue on puree foods at this time with pills crushed in puree. On today's assessment, a soft/ground texture was offered as a trial, but patient refused, expressed concern that it would be too difficult to eat. STATE ATTORNEY will continue to follow, re-assess swallow, upgrade where/when appropriate. , RN informed of recommendations in person, RD by secure text. STATE ATTORNEY will continue to follow. Frequency/Duration: M-F while inpatient Date Range for Service Req: Timeline to reassess: Oil Field Laborer Clinican/Clinical Fellow: No Supervisory Statement: I have reviewed and agree with the student/clinical fellow's documentation: N/A Speech Language Pathologist: Vianca Carrera M.A., [facility]-STATE ATTORNEY
[2022-05-23 12:40] LABS: Glucose, Whole Blood 163 mg/dL (60-115)
[2022-05-23] MEDS: Insulin Lispro 100 UNIT/ML 3 ML VIAL SUBCUT (12:42)
--- NOTE | 2022-05-23 12:52 | MHC.CLN ---
F/U PT WITH TRACH COLLAR WITH KEOFEED TUBE REMOVED DIET ADVANCED TO 2200DM PUREED-APPROPRIATE TRANSMISSION SUPERVISOR FOLLOWING RECOMMEND ADDING ENSURE MAX BID TO INCREASE PO PROTEIN SUPP TO PROVIDE 300KCALS, 60G PROTEIN MONITOR PO INTAKE
--- NOTE | 2022-05-23 13:41 | P.CONGS_ITS ---
History of Present Illness Consult details Consult date: 05/16/22 Narrative: Urgent surgical consultation was obtained in the emergency room for impending airway compromise secondary to angioedema. Patient was evaluated in the emergency department with progressive airway compromise and was urgently transferred for to the operating room for airway control/management. For further follow-up and care, please refer to operative note. [facility] Past Medical History Medical History (Updated 05/23/22 @ 10:39 by Itz Lopez MD) CAD (coronary artery disease) Fatty liver Foot ulcer, left Fracture of right tibia and fibula History of colon polyps History of hepatitis C History of TIA (transient ischemic attack) HTN (hypertension) Insulin dependent type 2 diabetes mellitus Metatarsal bone fracture Nicotine dependence, cigarettes, uncomplicated Obesity KD (obstructive sleep apnea) Seizure disorder Transaminitis Family History Family History Father CVD (cardiovascular disease) Colon cancer Mother No problems noted. Brother Liver cancer Paternal Aunt Colon cancer Surgical History Surgical History (Updated 05/16/22 @ 08:14 by Alanis Leigh PA-C) History of cardiac catheterization (~2018) History of colonoscopy (~2018) History of hernia repair History of lumbar spinal fusion History of surgery on lower extremity (~2019) Social History Social History Household Members: Unknown / Unable to assess Household Members Other:: Housing: Unknown / Unable to assess Do you presently have visiting nurse or other home services: No Unable to assess alcohol history related to: Unknown Alcohol intake: current Alcohol intake frequency: holidays/special occasions only Alcohol type: beer and hard liquor Patient Tobacco Use Status: Tobacco use Unknown Tobacco use type: Cigarette Cigarette Packs Per Day: 1 Cigarettes Per Day: 20 Smoked in Last 30 Days: Yes Second Hand Smoke Exposure: Yes Use of substances other than those prescribed or required for medical reasons: Unknown Substance Use Type: Marijuana Currently Displaying Signs/Symptoms of Drug Intoxication Withdrawal: No Spiritual Healthcare Practices: unable to assess Anabaptism Healthcare Practices: unable to assess Cultural Healthcare Practices: unable to assess Advance Directives: Yes Advance Directives Information Provided: No Advance Directives on File: Yes Advance Directives Date on File: 03/20/22 Recently lost weight without trying: Unsure How much weight loss: Unsure service: No Current occupational status: disabled Current occupation: right handed Cognitive needs: No Hearing needs: No Vision needs: No Meds Allergies Allergy/AdvReac Type Severity Reaction Status Date / Time cyclobenzaprine Allergy Unknown RASH Verified 04/02/22 08:22 [From FLEXERIL] penicillin V Allergy Unknown anaphylaxis Verified 04/02/22 08:22 Active Medications: Current Medications Albuterol Sulfate (Albuterol Sulfate (0.083%) 2.5 Mg/3 Ml Vial.Neb) 2.5 mg INHALE RQ6H [facility] Last Admin: 05/23/22 11:38 Dose: 2.5 mg Dextrose (Dextrose 50 % 25 Gm/50 Ml Syringe) 25 gm IVPUSH Q15M PRN; Protocol PRN Reason: per Hypoglycemia Standing Ord. Glucose (Glucose Gel 15 Gm Gel..Gram.) 15 gm PO Q15M PRN; Protocol PRN Reason: per Hypoglycemia Standing Ord. Heparin Sodium (Porcine) (Heparin Sodium,Porcine 5,000 Unit/Ml Vial) 5,000 unit SUBCUT Q8H [facility] Last Admin: 05/23/22 07:40 Dose: 5,000 unit Thiamine HCl 100 mg/ Sodium (Chloride) 101 mls @ 202 mls/hr IV DAILY [facility] Last Infusion: 05/23/22 08:25 Dose: Infused Insulin Human Lispro (Insulin Lispro 100 Unit/Ml 3 Ml Vial) 0 unit SUBCUT QIDACHS [facility]; Protocol Last Admin: 05/23/22 12:42 Dose: 2 unit Midazolam HCl (Midazolam Hcl/Pf 2 Mg/2 Ml Vial) 2 mg IVPUSH Q3H PRN PRN Reason: anxiety Home Medications Medication Instructions Recorded Confirmed Last Taken Type insulin glargine 100 unit/mL (3 30 unit subcut DAILY 12/26/21 05/15/22 05/15/22 History mL) subcutaneous pen (Lantus Solostar U-100 Insulin) aspirin 81 mg tablet,delayed 81 mg PO DAILY 03/17/22 05/15/22 05/15/22 History release duloxetine 30 mg capsule,delayed 1 cap PO BID 03/17/22 05/15/22 05/15/22 History release multivitamin 1 tab PO DAILY 03/17/22 05/15/22 05/15/22 History oxycodone 5 mg tablet 1 tab PO DAILY PRN Moderate Pain 03/17/22 05/15/22 Unknown History (Scale Score 5-6) pregabalin 200 mg capsule 1 cap PO TID 03/17/22 05/15/22 05/15/22 History pyridoxine (vitamin B6) 50 mg 1 tab PO DAILY 03/17/22 05/15/22 05/15/22 History tablet thiamine HCl (vitamin B1) 100 mg 1 tab PO DAILY 03/17/22 05/15/22 05/15/22 History tablet (Vitamin B-1) Physical Exam Vital Signs: Vital Signs: Last Vital Signs Temp 97.5 F 05/23/22 12:00 Pulse 108 H 05/23/22 13:00 Resp 30 H 05/23/22 12:00 BP 139/90 H 05/23/22 13:00 Pulse Ox 94 05/23/22 13:00 O2 Del Method 05/23/22 13:00 O2 Flow Rate 8 05/23/22 13:00 FiO2 40 05/22/22 21:00 BMI result Body Mass Index 43.7 Results Labs 05/23/22 05:24 05/23/22 05:24 Labs: Abnormal lab results 05/22/22 05/22/22 05/23/22 Range/Units 16:20 20:19 05:21 WBC (4.8-10.8) X10*3/uL RBC (4.60-5.80) X10*6/uL MCV (80.0-98.0) fL MCH (27.0-33.0) pg Immature Gran % (Auto) (0.0-0.4) % Neut % (Auto) (45-73) % Lymph % (Auto) (20-40) % [place] % (Auto) (2-11) % Lymph # (Auto) (1.2-4.9) X10*3/uL [place] # (Auto) (0.1-1.2) X10*3/uL Abs Immat Gran (auto) (0.00-0.03) X10*3/uL Absolute Neuts (auto) (2.0-8.3) x10*3/uL VBG pH 7.52 H (7.32-7.43) POC Glucose 138 H 136 H (60-115) mg/dL Random Glucose (60-115) mg/dL Albumin (3.5-5.0) g/dL 05/23/22 05/23/22 05/23/22 Range/Units 05:24 05:24 07:38 WBC 13.4 H (4.8-10.8) X10*3/uL RBC 4.22 L (4.60-5.80) X10*6/uL MCV 103.6 H (80.0-98.0) fL MCH 35.5 H (27.0-33.0) pg Immature Gran % (Auto) 0.6 H (0.0-0.4) % Neut % (Auto) 80.7 H (45-73) % Lymph % (Auto) 5.7 L (20-40) % [place] % (Auto) 12.6 H (2-11) % Lymph # (Auto) 0.8 L (1.2-4.9) X10*3/uL [place] # (Auto) 1.7 H (0.1-1.2) X10*3/uL Abs Immat Gran (auto) 0.08 H (0.00-0.03) X10*3/uL Absolute Neuts (auto) 10.8 H (2.0-8.3) x10*3/uL VBG pH (7.32-7.43) POC Glucose 135 H (60-115) mg/dL Random Glucose 120 H (60-115) mg/dL Albumin 3.3 L (3.5-5.0) g/dL 05/23/22 05/23/22 Range/Units 11:27 11:48 WBC (4.8-10.8) X10*3/uL RBC (4.60-5.80) X10*6/uL MCV (80.0-98.0) fL MCH (27.0-33.0) pg Immature Gran % (Auto) (0.0-0.4) % Neut % (Auto) (45-73) % Lymph % (Auto) (20-40) % [place] % (Auto) (2-11) % Lymph # (Auto) (1.2-4.9) X10*3/uL [place] # (Auto) (0.1-1.2) X10*3/uL Abs Immat Gran (auto) (0.00-0.03) X10*3/uL Absolute Neuts (auto) (2.0-8.3) x10*3/uL VBG pH (7.32-7.43) POC Glucose 154 H 163 H (60-115) mg/dL Random Glucose (60-115) mg/dL Albumin (3.5-5.0) g/dL Short CBC 05/23/22 Range/Units 05:24 WBC 13.4 H (4.8-10.8) X10*3/uL Hgb 15.0 (14.0-18.0) g/dl Hct 43.7 (42.0-52.0) % Plt Count 168 (160-400) X10*3/uL BMP 05/23/22 05:24 Sodium 140 Potassium 3.5 Chloride 102 Carbon Dioxide 22 BUN 11 Creatinine 0.62 Calcium 8.9 Liver Function 05/23/22 Range/Units 05:24 Albumin 3.3 L (3.5-5.0) g/dL Urine 05/15/22 Range/Units 17:23 Urine Color Yellow Urine Appearance Clear Urine pH 6.0 (5.0-9.0) Ur Specific [place] 1.010 (1.005-1.025) Urine Protein 100 (2+) H (Neg-Trace) mg/dL Urine Glucose (UA) Negative (Negative) mg/dL All other labs normal. Assessment and Plan (1) Angioedema: Status: Acute (2) Acute hypoxemic respiratory failure: Status: Acute Time Spent With Patient Time: Total time managing care of this patient today ____ minutes. Procedures Date of Service Date of Service: 05/16/22
[2022-05-23 16:19] LABS: Glucose, Whole Blood 135 mg/dL (60-115)
[2022-05-23] MEDS: Acetaminophen 325 MG TABLET 650 MG PO (17:15)
[2022-05-24] VITALS (27 sets, daily range): BP systolic 127–155; BP diastolic 64–100; PULSE 85–902; RESP 20–34; TEMP 36.2–36.9; O2SAT 90–95; BMI 40.6
--- NOTE | 2022-05-24 01:30 | PC.NURSE ---
Addendum entered by Behzad Howell RN 05/24/22 05:24: Patient did not sleep well, seemed to cough whenever he would fall asleep for a moment without desatting. Reports he uses a CPAP at home and does not have difficulty sleeping at home, discussed with CONSUMER AFFAIRS MANAGER and RT. Some slight pink-tinged secretions noted with suctioning. Original Note: Assumed care at 19:00. Patient initially alert and oriented x4, no apparent forgetfulness, seemed to become more subtly forgetful and repetitive overnight with mild anxiety, but is pleasant and easily redirectable. Patient occasionally refused components of nursing care, such as refusing to be repositioned in the early evening, but participated in active range of motion. Patient continued on Rai nasal cannula with liter flow of 3 LPM, with SpO2 maintained in mid 90's%. Patient seemed to develop a dry repeating cough over course of shift, which despite not being productive, suctioning produces thick copious secretions; CONSUMER AFFAIRS MANAGER notified. Patient is afebrile. Patient otherwise tolerating trach and liter flow well. Patient was very thirsty, and asking for drinks repeatedly, which he seemed to swallow without difficulty, but has been kept NPO per CONSUMER AFFAIRS MANAGER out of caution for risk of aspiration, and may need repeat swallow eval. Patient lung sounds did start diminished and developed coarse lung sounds in upper lung horan. Sinus tachycardia with occasional PVCs on telemetry, denies chest pain. Generally denies pain but complained of posterior neck and lower back pain with repositioning, which resolved at rest and semi-fowlers position. Patient incontinent of urine and stool, was outfitted with external urinary catheter with good effect.
[2022-05-24] MEDS: Heparin Sodium,Porcine 5,000 UNIT/ML VIAL 5000 UNIT SUBCUT ×3 (01:53→17:00)
[2022-05-24] MEDS: Albuterol Sulfate (0.083%) 2.5 MG/3 ML VIAL.NEB INHALE ×3 (05:07→23:11)
[2022-05-24 05:23] LABS: VBG Base Excess 4.2 mmol/L; VBG HCO3 26 mmol/L (22-26); VBG pCO2 34 mmHg; VBG pO2 84 mmHg
[2022-05-24 05:24] LABS: Venous Blood Gas Refer to POC result
[2022-05-24 05:34] LABS: MANUAL DIFF FLAG NO
[2022-05-24 05:36] LABS: Basophils Absolute Auto 0.1 X10*3/uL (0.0-0.2); Basophils Percent Auto 0.5 % (0-2); Eosinophils Absolute Auto 0.1 X10*3/uL (0.0-0.4); Eosinophils Percent Auto 0.4 % (0-4); Hematocrit 43.8 % (42.0-52.0); Hemoglobin 14.8 g/dl (14.0-18.0); Imm Gran Abs Auto 0.07 X10*3/uL (0.00-0.03); Imm Gran Pct Auto 0.5 % (0.0-0.4); Lymphocytes Absolute Auto 0.9 X10*3/uL (1.2-4.9); Mean Corpuscular HGB Conc 33.8 g/dl (31.0-36.0); Mean Corpuscular Hemoglobin 35.7 pg (27.0-33.0); Mean Corpuscular Volume 105.8 fL (80.0-98.0); Mean Platelet Volume 10.2 fL (9.4-12.4); Monocytes Absolute Auto 1.4 X10*3/uL (0.1-1.2); Neutrophils Absolute Auto 10.5 x10*3/uL (2.0-8.3); Neutrophils Percent Auto 80.6 % (45-73); Platelet Count 206 X10*3/uL (160-400); Red Blood Count 4.14 X10*6/uL (4.60-5.80); Red Cell Distribution Width 15.1 % (11.0-16.0)
[2022-05-24 05:55] LABS: Albumin Level 3.2 g/dL (3.5-5.0); Anion Gap 19 (12-20); Blood Urea Nitrogen 15 mg/dL (9-16); Calcium 8.8 mg/dL (8.4-10.2); Carbon Dioxide 22 mmol/L (22-29); Chloride 105 mmol/L (96-108); Creatinine Clr Calc Pharmacy 210.9; Estimated Glomerular Filt Rate > 60; Glucose Random 142 mg/dL (60-115); Magnesium 1.9 mg/dL (1.6-2.6); Phosphorus 2.9 mg/dL (2.7-4.5); Potassium 3.5 mmol/L (3.3-5.1); Sodium 142 mmol/L (135-145)
[2022-05-24 07:34] LABS: Glucose, Whole Blood 168 mg/dL (60-115)
[2022-05-24] MEDS: Thiamine HCL 100 MG in 0.9 % Sodium Chloride 100 ML 200 MG IV (09:04)
[2022-05-24] MEDS: Insulin Lispro 100 UNIT/ML 3 ML VIAL SUBCUT ×2 (09:05→12:05)
--- NOTE | 2022-05-24 09:46 | P.PNCC_ITS ---
Subjective Subjective Date of Service: 05/24/22 Interval History: 56-year-old gentleman with underlying history of obesity, KD, CAD, hypertension, COPD, alcohol abuse, hepatitis-C, seizure disorder admitted on 05/15/2022 with angioedema of unclear etiology requiring emergent tracheostomy with hospital course further complicated by seizure and negative pressure pulmonary edema with acute hypoxic respiratory failure. Now tolerating tracheal collar. No events overnight. Critical Care Time (minutes): 0 Physical Exam Vital Signs: Vital Signs: Last Vital Signs Temp 98.5 F 05/24/22 08:00 Pulse 101 H 05/24/22 09:00 Resp 21 H 05/24/22 09:00 BP 148/82 H 05/24/22 09:00 Pulse Ox 91 L 05/24/22 09:00 O2 Del Method 05/24/22 09:00 O2 Flow Rate 2 05/24/22 09:00 FiO2 40 05/22/22 21:00 BMI result Body Mass Index 40.6 Const: General: no acute distress, alert and awake Nutritional Appearance: obese Eyes: Sclerae: sclerae normal EOM: EOMs intact bilaterally Neck: Neck: Yes no lymphadenopathy, Yes trachea midline, Yes supple and Yes other (tracheostomy capped) Resp: Effort & Inspection: normal respiratory effort and no respiratory distress Auscultation: clear to auscultation bilaterally Cardio: Rate: regular rate Rhythm: regular rhythm Heart sounds: no gallops, no murmurs and no rubs GI: Palpation (GI): Soft to palpation and Other GI palpation findings present ( Nontender) Auscultation: normal bowel sounds Extrem: General: Yes no pedal edema, No clubbing and No cyanosis Objective Data Labs 05/24/22 05:16 05/24/22 05:16 Labs: Laboratory Results - last 24 hr 05/23/22 05/23/22 05/23/22 11:27 11:48 16:15 WBC RBC Hgb Hct MCV MCH MCHC RDW Plt Count MPV Immature Gran % (Auto) Neut % (Auto) Lymph % (Auto) [place] % (Auto) Eos % (Auto) Baso % (Auto) Lymph # (Auto) [place] # (Auto) Eos # (Auto) Baso # (Auto) Abs Immat Gran (auto) Absolute Neuts (auto) Absolute Nucleated RBC Nucleated RBC % (auto) VBG pH VBG pCO2 VBG pO2 VBG HCO3 VBG O2 Saturation VBG Base Excess Sodium Potassium Chloride Carbon Dioxide Anion Gap BUN Creatinine Estim Creat Clear Calc Estimated GFR POC Glucose 154 H 163 H 135 H Random Glucose Calcium Phosphorus Magnesium Albumin 05/24/22 05/24/22 05/24/22 05:15 05:16 05:16 WBC 13.0 H RBC 4.14 L Hgb 14.8 Hct 43.8 MCV 105.8 H MCH 35.7 H MCHC 33.8 RDW 15.1 Plt Count 206 MPV 10.2 Immature Gran % (Auto) 0.5 H Neut % (Auto) 80.6 H Lymph % (Auto) 7.0 L [place] % (Auto) 11.0 Eos % (Auto) 0.4 Baso % (Auto) 0.5 Lymph # (Auto) 0.9 L [place] # (Auto) 1.4 H Eos # (Auto) 0.1 Baso # (Auto) 0.1 Abs Immat Gran (auto) 0.07 H Absolute Neuts (auto) 10.5 H Absolute Nucleated RBC 0.000 Nucleated RBC % (auto) 0.0 VBG pH 7.50 H VBG pCO2 34 VBG pO2 84 VBG HCO3 26 VBG O2 Saturation 96.0 VBG Base Excess 4.2 Sodium 142 Potassium 3.5 Chloride 105 Carbon Dioxide 22 Anion Gap 19 BUN 15 Creatinine 0.60 Estim Creat Clear Calc 210.9 Estimated GFR > 60 POC Glucose Random Glucose 142 H Calcium 8.8 Phosphorus 2.9 Magnesium 1.9 Albumin 3.2 L 05/24/22 07:29 WBC RBC Hgb Hct MCV MCH MCHC RDW Plt Count MPV Immature Gran % (Auto) Neut % (Auto) Lymph % (Auto) [place] % (Auto) Eos % (Auto) Baso % (Auto) Lymph # (Auto) [place] # (Auto) Eos # (Auto) Baso # (Auto) Abs Immat Gran (auto) Absolute Neuts (auto) Absolute Nucleated RBC Nucleated RBC % (auto) VBG pH VBG pCO2 VBG pO2 VBG HCO3 VBG O2 Saturation VBG Base Excess Sodium Potassium Chloride Carbon Dioxide Anion Gap BUN Creatinine Estim Creat Clear Calc Estimated GFR POC Glucose 168 H Random Glucose Calcium Phosphorus Magnesium Albumin Microbiology Microbiology Results: Microbiology 05/18/22 15:10 Sputum - Suctioned Gram Stain - Final 05/18/22 15:10 Sputum - Suctioned Sputum Culture - Final Serratia marcescens Progress Note: A&P Assessment and plan (1) History of hepatitis C: Status: Acute (2) Diastolic CHF: Status: Acute (3) Status post tracheostomy: Status: Acute (4) Morbid obesity: Status: Acute (5) CAD (coronary artery disease): Status: Acute (6) HTN (hypertension): Status: Acute (7) COPD (chronic obstructive pulmonary disease): Status: Acute (8) Restrictive airway disease: Status: Acute Plan Assessment: 56-year-old gentleman with underlying morbid obesity, KD, alcohol abuse admitted with angioedema requiring emergent tracheostomy with hospital course also complicated by delirium tremens, now improving slowly. Plan: Neuro: Delirium tremens, resolved, titrated off sedative drips. Cardiac: No acute issues. Underlying coronary artery disease. Pulmonary: Acute hypoxic respiratory failure on the background of angioedema requiring emergent tracheostomy, now tolerating tracheostomy capping overnight. Plan to down size next week. Renal: No acute issues. Endo: No acute issues. GI: No acute issues. ID: No acute issues Heme/Onc: No acute issues. Psych: No acute issues. Miscellaneous: No acute issues. Prophylaxis: Heparin Diet: Diabetic Quality Stroke Does the patient have a stroke diagnosis?: No VTE Prior VTE?: No VTE Risk Level:: Medical - moderate - high VTE Device Contraindication: N/A - Device Ordered VTE Drug Contraindication: N/A - Med Ordered
--- NOTE | 2022-05-24 10:18 | MHC.CM.PN ---
CM SPOKE WITH PT AND WHO ARE REQUESTING HELP AT HOME WHEN DC. CM EXPLAINED WE CAN DEVELOP A PLAN BASED ON PT REC. ONCE SEEN. BOTH PT AND [facility] UNDERSTANDING. CM WILL CONTINUE TO FOLLOW.
[2022-05-24] MEDS: Potassium Chloride/H20 10 MEQ/100 ML PIGGYBACK 100 MEQ IV ×4 (11:01→14:11)
[2022-05-24] MEDS: Metoprolol Succinate ER 50 MG TAB.ER.24H PO (11:01)
[2022-05-24 11:33] LABS: Glucose, Whole Blood 158 mg/dL (60-115)
--- NOTE | 2022-05-24 12:53 | MHC.SPEECHCO ---
Pt seen this AM. Passed Blue Gatorade test with RN present. HOME DEMONSTRATOR continues to recommend Puree Solids and Thin Liquids. MD/RN notified in person, RD via [employer]. HOME DEMONSTRATOR will continue to follow.
[2022-05-24 16:44] LABS: Glucose, Whole Blood 133 mg/dL (60-115)
[2022-05-24] MEDS: Acetaminophen 325 MG TABLET 650 MG PO (17:00)
--- NOTE | 2022-05-24 18:13 | PC.NURSE ---
Pt on 2L n/c and satting appropriately; has an intermittent strong cough, requiring suctioning via trach, thick amounts of yellow secretions with blood streaks, MD aware. Trach other capped. Pt passed swallow eval by ST, recommended on current diet plan, very poor PO intake. Pt reports neck pain, PRN Tylenol given with good effect. Pt's incontinent of urine and stool, incontinence care provided PRN. Pt bathed PRN this shift d/t incontinence, repositioned every 2 hrs and as needed, prevalon system and turning bed utilized. Pt downgraded, awaiting bed on IMC. Pt and family aware of plan. Pt otherwise is in no acute distress. Safety maintained throughout. Will continue to monitor.
[2022-05-24 20:48] LABS: Glucose, Whole Blood 144 mg/dL (60-115)
[2022-05-24] MEDS: Melatonin 3 MG TABLET 6 MG PO (21:17)
[2022-05-25] VITALS (12 sets, daily range): BP systolic 133–157; BP diastolic 68–92; PULSE 86–109; RESP 20–28; TEMP 36.2–37; O2SAT 85–100; BMI 33.2
[2022-05-25] MEDS: Heparin Sodium,Porcine 5,000 UNIT/ML VIAL 5000 UNIT SUBCUT ×3 (00:08→16:41)
--- NOTE | 2022-05-25 03:38 | PC.NURSE ---
CARE ASSUMED 23:15..AWAKE..ALERT..ORIENTED X3..OCCASSIONAL VAGUE RESPONSES...#8.0 SHILEY TRACH CAPPED..O2 2 L/M VIA NASAL CANNULA AT HS..SAO2 92-93%..DRINKING FLUIDS W/O DIFFICULTY..INCONTINANT URINE AND LOOSE BROWN STOOL X2...SETTLED SELF FOR SLEEP 01:30...SAO2 87-88% ASLEEP...O2 TITRATED TO 5 L/M WITH SAO2 89%...PER ICU CYBER DEFENSE FORENSICS ANALYST OK TO RESUMED TRACH COLLAR VIA TRACH PRN..AWAKENED FOR TRANSFER TO [facility]...RAISED THICK VEGA SPUTUM VIA TRACH DURING TRACH CARE BY RT...SAO2 IMPROVED TO 94-95% WITH O2 5 L/M...REPORT CALLED TO [facility]...NSR...ISOLATED PVC HR 90-92..RESTFUL..AWAITING TRANSFER TO [facility]
[2022-05-25] MEDS: Albuterol Sulfate (0.083%) 2.5 MG/3 ML VIAL.NEB INHALE ×2 (06:20→11:17)
[2022-05-25 06:49] LABS: MANUAL DIFF FLAG NO
[2022-05-25 06:51] LABS: Basophils Absolute Auto 0.1 X10*3/uL (0.0-0.2); Basophils Percent Auto 0.7 % (0-2); Eosinophils Absolute Auto 0.1 X10*3/uL (0.0-0.4); Eosinophils Percent Auto 0.9 % (0-4); Hematocrit 43.2 % (42.0-52.0); Hemoglobin 14.7 g/dl (14.0-18.0); Imm Gran Abs Auto 0.06 X10*3/uL (0.00-0.03); Imm Gran Pct Auto 0.4 % (0.0-0.4); Lymphocytes Absolute Auto 1.2 X10*3/uL (1.2-4.9); Lymphocytes Percent Auto 7.9 % (20-40); Mean Corpuscular Hemoglobin 36.8 pg (27.0-33.0); Mean Corpuscular Volume 108.3 fL (80.0-98.0); Mean Platelet Volume 10.1 fL (9.4-12.4); Monocytes Absolute Auto 1.4 X10*3/uL (0.1-1.2); Monocytes Percent Auto 9.3 % (2-11); Neutrophils Absolute Auto 11.9 x10*3/uL (2.0-8.3); Neutrophils Percent Auto 80.8 % (45-73); Platelet Count 224 X10*3/uL (160-400); Red Blood Count 3.99 X10*6/uL (4.60-5.80); Venous Blood Gas Refer to POC result; White Blood Count 14.8 X10*3/uL (4.8-10.8)
[2022-05-25 06:52] LABS: VBG Base Excess 0.1 mmol/L; VBG HCO3 22 mmol/L (22-26); VBG pCO2 28 mmHg; VBG pH 7.49 (7.32-7.43); VBG pO2 77 mmHg
[2022-05-25 07:36] LABS: Glucose, Whole Blood 172 mg/dL (60-115)
[2022-05-25 07:36] LABS: Albumin Level 3.3 g/dL (3.5-5.0); Anion Gap 19 (12-20); Blood Urea Nitrogen 19 mg/dL (9-16); Calcium 8.7 mg/dL (8.4-10.2); Carbon Dioxide 22 mmol/L (22-29); Chloride 106 mmol/L (96-108); Creatinine Clr Calc Pharmacy 171.2; Estimated Glomerular Filt Rate > 60; Glucose Random 155 mg/dL (60-115); Magnesium 1.8 mg/dL (1.6-2.6); Phosphorus 3.1 mg/dL (2.7-4.5); Potassium 3.6 mmol/L (3.3-5.1); Sodium 143 mmol/L (135-145)
[2022-05-25] MEDS: Insulin Lispro 100 UNIT/ML 3 ML VIAL SUBCUT ×4 (08:35→22:14)
[2022-05-25] MEDS: Metoprolol Succinate ER 50 MG TAB.ER.24H PO ×2 (08:35→16:41)
[2022-05-25] MEDS: Loperamide HCl 2 MG CAPSULE PO ×2 (09:42→18:46)
[2022-05-25 11:27] LABS: Glucose, Whole Blood 189 mg/dL (60-115)
[2022-05-25] MEDS: Acetaminophen 325 MG TABLET 650 MG PO ×2 (12:30→18:46)
--- NOTE | 2022-05-25 13:29 | P.PNIM_ITS ---
Subjective Subjective Date of Service: 05/25/22 Interval History: the patient was seen and evaluated this morning Laying in bed, feels comfortable Denies any fever, chills or shortness of breath No reported other overnight events. Systemic review: No fever, chills or weakness No chest pain, palpitation No shortness of breath or coughing No abdominal pain, nausea or vomiting No urinary symptoms No reported rash Physical Exam Vital Signs: Vital Signs: Last Vital Signs Temp 97.1 F 05/25/22 11:34 Pulse 109 H 05/25/22 11:34 Resp 22 H 05/25/22 11:34 BP 147/92 H 05/25/22 11:34 Pulse Ox 93 05/25/22 11:34 O2 Del Method 05/25/22 11:34 O2 Flow Rate 4 05/25/22 11:34 FiO2 40 05/22/22 21:00 BMI result Body Mass Index 33.2 Const: Other: Constitutional : Awake, interactive, not in distress Neck : Normal inspection, Supple, tracheostomy in place and locked Cardiovascular : RRR, no JVP, no lower extremity edema Respiratory : good bilateral air entry, no crackles, wheezes or rhonchi Gastrointestinal: soft, lax, Normal bowel sounds, Non tender Skin : Warm, Dry Neurological : Alert & oriented x3, No focal deficit Objective Data Active Medications Acetaminophen (Acetaminophen 325 Mg Tablet) 650 mg PO Q6H PRN PRN Reason: Pain, Mild (Pain Scale 1-3) Last Admin: 05/25/22 12:30 Dose: 650 mg Documented By: CARA Albuterol Sulfate (Albuterol Sulfate (0.083%) 2.5 Mg/3 Ml Vial.Neb) 2.5 mg INHALE RQ6H [facility] Last Admin: 05/25/22 11:17 Dose: 2.5 mg Documented By: ULRICOsito Dextrose (Dextrose 50 % 25 Gm/50 Ml Syringe) 25 gm IVPUSH Q15M PRN; Protocol PRN Reason: per Hypoglycemia Standing Ord. Glucose (Glucose Gel 15 Gm Gel..Gram.) 15 gm PO Q15M PRN; Protocol PRN Reason: per Hypoglycemia Standing Ord. Heparin Sodium (Porcine) (Heparin Sodium,Porcine 5,000 Unit/Ml Vial) 5,000 unit SUBCUT Q8H [facility] Last Admin: 02/25/23 08:35 Dose: 5,000 unit Documented By: CARA Insulin Human Lispro (Insulin Lispro 100 Unit/Ml 3 Ml Vial) 0 unit SUBCUT QIDACHS [facility]; Protocol Last Admin: 05/25/22 12:31 Dose: 2 unit Documented By: CARA Loperamide HCl (Loperamide Hcl 2 Mg Capsule) 2 mg PO Q4H PRN PRN Reason: Diarrhea Last Admin: 05/25/22 09:42 Dose: 2 mg Documented By: CARA Melatonin (Melatonin 3 Mg Tablet) 6 mg PO BEDTIME PRN PRN Reason: insomnia Last Admin: 05/24/22 21:17 Dose: 6 mg Documented By: TANSEHA Metoprolol Succinate (Metoprolol Succinate Er 50 Mg Tab.Er.24h) 50 mg PO DAILY [facility]; Protocol Last Admin: 05/25/22 08:35 Dose: 50 mg Documented By: CARA Midazolam HCl (Midazolam Hcl/Pf 2 Mg/2 Ml Vial) 2 mg IVPUSH Q3H PRN PRN Reason: anxiety Labs 05/25/22 06:40 05/25/22 06:40 Labs: Laboratory Results - last 24 hr 05/24/22 05/24/22 05/25/22 16:41 20:33 06:40 MCV 108.3 H MCH 36.8 H MCHC 34.0 RDW 15.0 Plt Count 224 MPV 10.1 Immature Gran % (Auto) 0.4 Neut % (Auto) 80.8 H Lymph % (Auto) 7.9 L [place] % (Auto) 9.3 Eos % (Auto) 0.9 Baso % (Auto) 0.7 Lymph # (Auto) 1.2 [place] # (Auto) 1.4 H Eos # (Auto) 0.1 Baso # (Auto) 0.1 Abs Immat Gran (auto) 0.06 H Absolute Neuts (auto) 11.9 H Absolute Nucleated RBC 0.000 Nucleated RBC % (auto) 0.0 VBG pH VBG pCO2 VBG pO2 VBG HCO3 VBG O2 Saturation VBG Base Excess Anion Gap Estim Creat Clear Calc Estimated GFR POC Glucose 133 H 144 H Random Glucose Calcium Phosphorus Magnesium Albumin 05/25/22 05/25/22 05/25/22 06:40 06:43 07:12 MCV MCH MCHC RDW Plt Count MPV Immature Gran % (Auto) Neut % (Auto) Lymph % (Auto) [place] % (Auto) Eos % (Auto) Baso % (Auto) Lymph # (Auto) [place] # (Auto) Eos # (Auto) Baso # (Auto) Abs Immat Gran (auto) Absolute Neuts (auto) Absolute Nucleated RBC Nucleated RBC % (auto) VBG pH 7.49 H VBG pCO2 28 VBG pO2 77 VBG HCO3 22 VBG O2 Saturation 95.0 VBG Base Excess 0.1 Anion Gap 19 Estim Creat Clear Calc 171.2 Estimated GFR > 60 POC Glucose 172 H Random Glucose 155 H Calcium 8.7 Phosphorus 3.1 Magnesium 1.8 Albumin 3.3 L 05/25/22 11:16 MCV MCH MCHC RDW Plt Count MPV Immature Gran % (Auto) Neut % (Auto) Lymph % (Auto) [place] % (Auto) Eos % (Auto) Baso % (Auto) Lymph # (Auto) [place] # (Auto) Eos # (Auto) Baso # (Auto) Abs Immat Gran (auto) Absolute Neuts (auto) Absolute Nucleated RBC Nucleated RBC % (auto) VBG pH VBG pCO2 VBG pO2 VBG HCO3 VBG O2 Saturation VBG Base Excess Anion Gap Estim Creat Clear Calc Estimated GFR POC Glucose 189 H Random Glucose Calcium Phosphorus Magnesium Albumin Assessment and Plan (1) Acute non-cardiogenic pulmonary edema: Status: Acute (2) Acute hypoxemic respiratory failure: Status: Acute (3) Status post tracheostomy: Status: Acute (4) Angioedema: Status: Acute (5) ETOH abuse: Status: Acute (6) Delirium tremens: Status: Acute Plan 56-year-old gentleman with underlying morbid obesity, KD, alcohol abuse admitted with angioedema requiring emergent tracheostomy? with hospital course also complicated by delirium tremens Acute respiratory failure secondary to angioedema, resolved Tracheostomy in place, plan to downsize it by Friday or Friday Thoracic surgery and pulmonology following Continue nebulizers Alcohol abuse with alcohol withdrawal and delirium tremens Finish treatment in ICU, recovered To get Addiction team on board Continue folic acid and thiamine Seizure Patient denies history of seizure but he is on degree told, he is not aware why Had 1 episode reported a hospital, likely related to alcohol withdrawal Continue Tegretol Seizure precautions Hypertension Continue metoprolol To start lisinopril DVT PPX Heparin The patient will need overnight hospital stay pending tracheostomy downsize by surgical team Time Spent With Patient Time: Total time managing care of this patient today ____ minutes. Quality Stroke Does the patient have a stroke diagnosis?: No VTE Prior VTE?: No VTE Risk Level:: Medical - moderate - high VTE Device Contraindication: N/A - Device Ordered VTE Drug Contraindication: N/A - Med Ordered
[2022-05-25 16:20] LABS: Glucose, Whole Blood 191 mg/dL (60-115)
[2022-05-25] MEDS: QUEtiapine Fumarate 25 MG TABLET PO (18:47)
[2022-05-25] MEDS: LORazepam 0.5 MG TABLET PO (18:47)
[2022-05-25 19:53] LABS: Glucose, Whole Blood 151 mg/dL (60-115)
--- NOTE | 2022-05-25 21:30 | PM.EVENT ---
Event Note Date of Service: 05/25/22 Event Note: A rapid was called on this pt for dislodged trach tube. Pt is hemodynamically stable, had been sating 80s on 4L of cannula. pt placed on non-rebreather sating 100% after a gauze was placed on the tracheotomy . ICU PA was consulted and treach tube was placed. Pt remained a lert and oriented and HDS Time Spent With Patient Time: Total time managing care of this patient today ____ minutes.
[2022-05-25] MEDS: Morphine Sulfate 4 MG/ML CARTRIDGE IVPUSH (21:43)
--- NOTE | 2022-05-25 22:00 | PC.NURSE ---
Pt seen by this RN with legs dangling over the side of bed from ca. Upon entering room, noticed pt's trach tube was dislodged. RT was called to assess pt and assist with care. Obtained vitals, pt O2 sat at 81%. Rapid response was called overhead (see event note by MD), pt placed on 4L via non-rebreather and O2 sat improved to 100%. ICU PA responded and placed another trach, #8 shiley. Respiratory performed trach care for patient, including suctioning, inserted reusable inner cannula, placed a dressing, and cleaned the site. Trach is capped off and pt now back to chang on 4L. Vital signs stable. Chest X-Ray obtained. Will continue with plan of care.
[2022-05-25] MEDS: Melatonin 3 MG TABLET 6 MG PO (22:15)
[2022-05-25] MEDS: carBAMazepine 200 MG TABLET PO (22:15)
[2022-05-26] VITALS (9 sets, daily range): BP systolic 104–159; BP diastolic 64–98; PULSE 75–105; RESP 20–22; TEMP 36.1–37.1; O2SAT 90–98; BMI 33.4
[2022-05-26] MEDS: Albuterol Sulfate (0.083%) 2.5 MG/3 ML VIAL.NEB INHALE ×2 (00:13→05:53)
[2022-05-26] MEDS: Acetaminophen 325 MG TABLET 650 MG PO (04:29)
[2022-05-26 07:35] LABS: Glucose, Whole Blood 153 mg/dL (60-115)
[2022-05-26] MEDS: Insulin Lispro 100 UNIT/ML 3 ML VIAL SUBCUT ×2 (08:32→19:43)
[2022-05-26] MEDS: Heparin Sodium,Porcine 5,000 UNIT/ML VIAL 5000 UNIT SUBCUT ×2 (08:34→17:19)
[2022-05-26] MEDS: Aspirin Enteric Coated 81 MG TABLET.DR PO (08:34)
[2022-05-26] MEDS: Folic Acid 1 MG TABLET PO (08:34)
[2022-05-26] MEDS: Thiamine HCL 100 MG TABLET PO (08:34)
[2022-05-26] MEDS: Metoprolol Succinate ER 100 MG TAB.ER.24H PO (08:35)
--- NOTE | 2022-05-26 10:14 | PC.NURSE ---
pt A&O x 4. however pt needs a lot of redirecting on why pt cannot get up by himself. pt states I want to go home - provider notified and at bedside and spoke with pt. pt also non- compliant with tele monitor - MD aware, d/c tele. Pt also pulled out IV (22 right hand) and refuses new IV. pt also currently has no IV medications - MD aware.
--- NOTE | 2022-05-26 11:16 | P.PNIM_ITS ---
Subjective Subjective Date of Service: 05/26/22 Interval History: the patient was seen and evaluated this morning Laying in bed, feels anxious and prefers to be home Still need assistant terminal manager with physical activity No reported other overnight events. Systemic review: No fever, chills or weakness No chest pain, palpitation No shortness of breath or coughing No abdominal pain, nausea or vomiting No urinary symptoms No reported rash Physical Exam Vital Signs: Vital Signs: Last Vital Signs Temp 98.8 F 05/26/22 07:57 Pulse 91 05/26/22 07:57 Resp 22 H 05/26/22 07:57 BP 143/83 H 05/26/22 07:57 Pulse Ox 95 05/26/22 07:57 O2 Del Method 05/26/22 07:57 O2 Flow Rate 2 05/26/22 07:57 FiO2 100 05/25/22 21:17 Oxygen Flow Rate 15 05/25/22 21:17 BMI result Body Mass Index 33.4 Const: Other: Constitutional : Awake, interactive, not in distress Neck : Normal inspection, Supple, tracheostomy in place and locked Cardiovascular : RRR, no JVP, no lower extremity edema Respiratory : good bilateral air entry, no crackles, wheezes or rhonchi Gastrointestinal: soft, lax, Normal bowel sounds, Non tender Skin : Warm, Dry Neurological : Alert & oriented x3, No focal deficit Objective Data Active Medications Acetaminophen (Acetaminophen 325 Mg Tablet) 650 mg PO Q6H PRN PRN Reason: Pain, Mild (Pain Scale 1-3) Last Admin: 05/26/22 04:29 Dose: 650 mg Documented By: DELMY Albuterol Sulfate (Albuterol Sulfate (0.083%) 2.5 Mg/3 Ml Vial.Neb) 2.5 mg INHALE RQ6H [facility] Last Admin: 05/26/22 05:53 Dose: 2.5 mg Documented By: LETTY Aspirin (Aspirin Enteric Coated 81 Mg Tablet.) 81 mg PO DAILY [facility] Last Admin: 05/26/22 08:34 Dose: 81 mg Documented By: TONI Carbamazepine (Carbamazepine 200 Mg Tablet) 200 mg PO BEDTIME [facility] Last Admin: 05/25/22 22:15 Dose: 200 mg Documented By: DELMY Dextrose (Dextrose 50 % 25 Gm/50 Ml Syringe) 25 gm IVPUSH Q15M PRN; Protocol PRN Reason: per Hypoglycemia Standing Ord. Folic Acid (Folic Acid 1 Mg Tablet) 1 mg PO DAILY [facility] Last Admin: 05/26/22 08:34 Dose: 1 mg Documented By: TONI Glucose (Glucose Gel 15 Gm Gel..Gram.) 15 gm PO Q15M PRN; Protocol PRN Reason: per Hypoglycemia Standing Ord. Heparin Sodium (Porcine) (Heparin Sodium,Porcine 5,000 Unit/Ml Vial) 5,000 unit SUBCUT Q8H [facility] Last Admin: 05/26/22 08:34 Dose: 5,000 unit Documented By: TONI Insulin Human Lispro (Insulin Lispro 100 Unit/Ml 3 Ml Vial) 0 unit SUBCUT QIDAC HS [facility]; Protocol Last Admin: 05/26/22 08:32 Dose: 2 unit Documented By: TONI Loperamide HCl (Loperamide Hcl 2 Mg Capsule) 2 mg PO Q4H PRN PRN Reason: Diarrhea Last Admin: 05/25/22 18:46 Dose: 2 mg Documented By: CARA Lorazepam (Lorazepam 0.5 Mg Tablet) 0.5 mg PO Q6H PRN PRN Reason: anxiety/restlessness Last Admin: 05/25/22 18:47 Dose: 0.5 mg Documented By: CARA Melatonin (Melatonin 3 Mg Tablet) 6 mg PO BEDTIME PRN PRN Reason: insomnia Last Admin: 05/25/22 22:15 Dose: 6 mg Documented By: DELMY Metoprolol Succinate (Metoprolol Succinate Er 100 Mg Tab.Er.24h) 100 mg PO DAILY [facility]; Protocol Last Admin: 05/26/22 08:35 Dose: 100 mg Documented By: TONI Thiamine HCl (Thiamine Hcl 100 Mg Tablet) 100 mg PO DAILY [facility] Last Admin: 05/26/22 08:34 Dose: 100 mg Documented By: TONI Labs 05/25/22 06:40 05/25/22 06:40 Labs: Laboratory Results - last 24 hr 05/25/22 05/25/22 05/25/22 11:16 16:11 19:47 POC Glucose 189 H 191 H 151 H 05/26/22 07:21 POC Glucose 153 H Assessment and Plan (1) Delirium tremens: Status: Acute (2) Acute non-cardiogenic pulmonary edema: Status: Acute (3) Acute hypoxemic respiratory failure: Status: Acute (4) Status post tracheostomy: Status: Acute Plan 56-year-old gentleman with underlying morbid obesity, KD, alcohol abuse admitted with angioedema requiring emergent tracheostomy? with hospital course also complicated by delirium tremens Acute respiratory failure secondary to angioedema, resolved Tracheostomy in place, plan to downsize it by Friday hopefully Thoracic surgery and pulmonology following Continue nebulizers To prescribe epinephrine on discharge Alcohol abuse with alcohol withdrawal and delirium tremens Finish treatment in ICU, recovered To get Addiction team on board Continue folic acid and thiamine Seizure Patient denies history of seizure but he is on degree told, he is not aware why Had 1 episode reported a hospital, likely related to alcohol withdrawal Continue Tegretol Seizure precautions Hypertension Continue metoprolol To start lisinopril DVT PPX Heparin The patient will need overnight hospital stay pending tracheostomy downsize by surgical team Time Spent With Patient Time: Total time managing care of this patient today ____ minutes. Quality Stroke Does the patient have a stroke diagnosis?: No VTE Prior VTE?: No VTE Risk Level:: Medical - moderate - high VTE Device Contraindication: N/A - Device Ordered VTE Drug Contraindication: N/A - Med Ordered
[2022-05-26 11:45] LABS: Glucose, Whole Blood 129 mg/dL (60-115)
--- NOTE | 2022-05-26 15:28 | PC.NURSE ---
countless times VMT has stat pt due to pt trying to get out of bed however pt is too decondition to be able to get up by himself therefore pt's legs will dangle over the side of the bed. This nurse educated over and over again about elevating feet due to edema of lower extremeties and pt is at risk for following off bed. pt refuses to get put legs back in bed and states I am comfortable . pt also states this is not the deal, i'm not going to stay in bed until friday, i want to go home. I can go home and come back friday for the procedure . MD is aware of situation from earlier this morning. ill reach out to notify processing supervisor.
[2022-05-26] MEDS: LORazepam 0.5 MG TABLET PO ×2 (15:41→22:18)
[2022-05-26 16:15] LABS: Glucose, Whole Blood 148 mg/dL (60-115)
[2022-05-26] MEDS: QUEtiapine Fumarate 25 MG TABLET PO (17:14)
[2022-05-26 19:32] LABS: Glucose, Whole Blood 169 mg/dL (60-115)
[2022-05-26] MEDS: carBAMazepine 200 MG TABLET PO (19:43)
[2022-05-26] MEDS: Melatonin 3 MG TABLET 6 MG PO (22:17)
--- NOTE | 2022-05-26 23:20 | P.EN_ITS ---
Event Note Date of Service: 05/26/22 Event Note: pt does not want to wear almond grinder. will dc Time Spent With Patient Time: Total time managing care of this patient today ____ minutes.
--- NOTE | 2022-05-26 23:20 | PM.EVENT ---
Event Note Date of Service: 05/26/22 Event Note: pt does not want to wear core dropper. will dc Time Spent With Patient Time: Total time managing care of this patient today ____ minutes.
[2022-05-27 04:00] VITALS: BP 140/85; PULSE 100; RESP 20; TEMP 36.4; O2SAT 92
[2022-05-27 05:33] VITALS: BMI 27.8
[2022-05-27 06:25] LABS: Anion Gap 24 (12-20); Blood Urea Nitrogen 32 mg/dL (9-16); Calcium 9.2 mg/dL (8.4-10.2); Carbon Dioxide 17 mmol/L (22-29); Chloride 103 mmol/L (96-108); Creatinine Clr Calc Pharmacy 123.1; Estimated Glomerular Filt Rate > 60; Glucose Random 134 mg/dL (60-115); Potassium 3.7 mmol/L (3.3-5.1); Sodium 140 mmol/L (135-145)
[2022-05-27 06:38] LABS: Hematocrit 44.5 % (42.0-52.0); Hemoglobin 15.1 g/dl (14.0-18.0); Mean Corpuscular HGB Conc 33.9 g/dl (31.0-36.0); Mean Corpuscular Hemoglobin 35.6 pg (27.0-33.0); Mean Platelet Volume 10.4 fL (9.4-12.4); Platelet Count 276 X10*3/uL (160-400); Red Blood Count 4.24 X10*6/uL (4.60-5.80); Red Cell Distribution Width 14.6 % (11.0-16.0); White Blood Count 15.8 X10*3/uL (4.8-10.8)
[2022-05-27 07:48] VITALS: BP 156/85; PULSE 103; RESP 20; TEMP 36.3; O2SAT 92
[2022-05-27 07:57] LABS: Glucose, Whole Blood 135 mg/dL (60-115)
--- NOTE | 2022-05-27 09:11 | PM.EVENT ---
Event Note Date of Service: 05/27/22 Event Note: Tracheostomy exchanged over bougie to [place] 7 uncuffed without complications.
[2022-05-27] MEDS: Aspirin Enteric Coated 81 MG TABLET.DR PO (09:27)
[2022-05-27] MEDS: Folic Acid 1 MG TABLET PO (09:27)
[2022-05-27] MEDS: Metoprolol Succinate ER 100 MG TAB.ER.24H PO (09:27)
[2022-05-27] MEDS: Heparin Sodium,Porcine 5,000 UNIT/ML VIAL 5000 UNIT SUBCUT (09:27)
[2022-05-27] MEDS: Thiamine HCL 100 MG TABLET PO (09:27)
[2022-05-27] MEDS: Albuterol Sulfate (0.083%) 2.5 MG/3 ML VIAL.NEB INHALE (11:23)
[2022-05-27] MEDS: Doxycycline Monohydrate 100 MG CAPSULE PO (11:35)
[2022-05-27 11:41] VITALS: PULSE 103; RESP 18; O2SAT 93
--- NOTE | 2022-05-27 11:46 | P.DS_ITS ---
DS: Providers Provider Date of Service: 05/27/22 Date of admission: 05/15/22 16:20 Primary care physician: MANDI Gómez Consults: 05/19/22 07:54 Consult to Infectious Diseases Stat Consulting Provider: Lashell Chauhan Reason for consultation: meropenem order 05/26/22 11:18 Addiction Medicine Routine Consulting Provider: Addiction Covering Reason for consultation: Alcoholism with severe withdrawal and delirium tremens DS: Diagnosis Discharge Diagnosis (1) Delirium tremens: Status: Acute (2) Acute non-cardiogenic pulmonary edema: Status: Acute (3) Acute hypoxemic respiratory failure: Status: Acute (4) Status post tracheostomy: Status: Acute (5) Angioedema: Status: Acute (6) ETOH abuse: Status: Acute DS: Summary Hospital Course Hospital Course: The patient has prolonged hospital stay, for full details please return to EMR Admission note HPI ?56-year-old moderately obese male with obstructive sleep apnea alcohol abuse hypertensive and hyperlipidemic with type 2 diabetes mellitus who happens to be on lisinopril but the all of a sudden developed swelling of his tongue and in the submandibular space and noticed that he was having progressive trouble with swallowing in and his voice being altered and came to the emergency room and was getting progressively worse despite receiving in steroids and antihistamines and and decision was made to intubate him under direct visualization in the operating room with standby tracheostomy and Cardiothoracic surgery and sure enough he just turned blue all of a sudden stop breathing in an emergency tracheostomy was performed without complication postoperatively he had a seizure which responded to a total of 6 mg of IV Versed and IV propofol and is currently on the ventilator sedated with a a Shiley tracheostomy tube that was just done and will cover him postoperatively with vancomycin because he has got penicillin allergy shortly thereafter and he became hypoxemic 83% saturation and a stat r epeat chest x-ray revealed what looked like negative pressure pulmonary edema there was no blood there was nothing there for him to aspirate and I gave him 20 mg of Lasix aggressive albuterol treatments and being that there was no improvement on an increased PEEP level of 10 on IV dropped his PEEP down to 0 for the sake of his blood pressure his hypoxia began to slowly resolve and he did still require a small dose of phenylephrine but he remained stable throughout the night this morning was down to an FiO2 of 85% Hospital course The patient was admitted to ICU for Acute respiratory failure secondary to angioedema post emergency Tracheostomy. Followed by pulmonology and thoracic surgery as the Tracheostomy was downsized to 7 on 05/27/[address] Lopez who recommended a follow up in 4 weeks. Prescribed epinephrine on discharge and advised to get evaluated by an enrobing machine corder as outpatient. after ICU admission he started to have symptoms of alcohol withdrawal and deli rium tremens. treated with Precedex and other sedatives with good response as he came out of withdrawal with good mentation as he was kept on thiamin, folic acid and multivitamins. seen by Addiction team who recommended outpatient resouces and follow up with no acitve medications started. Continue folic acid and thiamine on discharge. reported Seizure while he was going through withdrawal. Patient denies history of seizure. He is on Tegretol on home which was continued with no recurrence of seizure during hopsital stay. Evaluated by physical therapy team who recommended short term rehab but patient insisted on going back home. his insurance did not allow for home VNA and PT. script was given for outpatient physical therapy. noted to have leukocytosis with CXR showing improving Rt side atelactasis. to finish 5 more days of doxycycline and to use Incentive spirometry. Discharge plan Finish 5 more days of Doxycycline We advise you complete abstince from alcohol To follow up with dr Gabriel office in 4 weeks To follow up with an enrobing machine corder to test for possible allergns Use Epinephrine if needed for anaphylaxis\angioedema Cut down Pregabalin to 1 cap at bedtime and increase it to 1 cap twice daily in 3 days To repeat blood test in 3 days and follow with your PCP next week Time Spent with Patient Time attestation: Total time managing care of this patient today ____ minutes. Discharge coordination time: Greater than 30 minutes Quality: Safe Use of Opioids Does Pt have an Active Cancer Diagnosis on the Problem List?: No Quality: Stroke Does the patient have a stroke diagnosis?: No Physical Exam Vital Signs: Vital Signs: Last Vital Signs Temp 97.4 F 05/27/22 07:48 Pulse 103 H 05/27/22 11:41 Resp 18 05/27/22 11:41 BP 156/85 H 05/27/22 07:48 Pulse Ox 92 05/27/22 07:48 O2 Del Method 05/27/22 07:48 O2 Flow Rate 2 02/26/23 07:57 FiO2 100 05/25/22 21:17 Oxygen Flow Rate 15 05/25/22 21:17 BMI result Body Mass Index 27.8 Const: Other: Constitutional : Awake, interactive, not in distress Neck : Normal inspection, Supple, tracheostomy in place Cardiovascular : RRR, no JVP, no lower extremity edema Respiratory : good bilateral air entry, no crackles, wheezes or rhonchi Gastrointestinal: soft, lax, Normal bowel sounds, Non tender Skin : Warm, Dry Neurological : Alert & oriented x3, No focal deficit DS: Data Data Completed and Pending Labs on day of discharge: Laboratory Results - last 24 hr 05/26/22 05/26/22 05/27/22 16:06 19:25 05:33 WBC 15.8 H RBC 4.24 L Hgb 15.1 Hct 44.5 MCV 105.0 H MCH 35.6 H MCHC 33.9 RDW 14.6 Plt Count 276 MPV 10.4 Absolute Nucleated RBC 0.000 Nucleated RBC % (auto) 0.0 Sodium Potassium Chloride Carbon Dioxide Anion Gap BUN Creatinine Estim Creat Clear Calc Estimated GFR POC Glucose 148 H 169 H Random Glucose Calcium 05/27/22 05/27/22 05:33 07:50 WBC RBC Hgb Hct MCV MCH MCHC RDW Plt Count MPV Absolute Nucleated RBC Nucleated RBC % (auto) Sodium 140 Potassium 3.7 Chloride 103 Carbon Dioxide 17 L Anion Gap 24 H BUN 32 H Creatinine 0.76 Estim Creat Clear Calc 123.1 Estimated GFR > 60 POC Glucose 135 H Random Glucose 134 H Calcium 9.2 Imaging Chest x-ray: Radiologist's impression: ITS Impressions Chest X-Ray 05/15/22 18:53 IMPRESSION: 1. New airspace opacities along the medial aspect of the right lung with rightward tracheal deviation and asymmetric elevation of the right hemidiaphragm. These findings are nonspecific and could be related in part with atelectasis given volume loss, however an underlying mass or pneumonia cannot be entirely excluded. Recommend further evaluation with a CT chest with IV contrast. 2. Increased prominence of the cardiomediastinal silhouette, nonspecific. Chest X-Ray 05/16/22 06:40 IMPRESSION: No significant change. Persistent right midlung and left basilar opacities. This could represent atelectasis or pneumonia. Aspiration possible. Chest X-Ray 05/18/22 08:54 IMPRESSION: No significant change from previous study with persistent right lung base disease. Chest X-Ray 05/19/22 08:12 IMPRESSION: Essentially stable appearance of the chest with enlarged cardiopericardial silhouette and bibasilar disease. Chest X-Ray 05/21/22 12:59 IMPRESSION: 1. Enterogastric tube in appropriate position with the tip extending inferior to the left hemidiaphragm and beyond the imaged [id number]. 2. Hypoinflation of the right lung with linear atelectasis versus scarring, unchanged. Chest X-Ray 05/21/22 13:42 IMPRESSION: * Tracheostomy tube and gastric tube in place properly positioned. * Diminished right lung volume, linear opacity probably atelectasis, scar or fluid in the fissure projecting over the right middle lung zone. * Mediastinum is widened however this is a stable finding. Chest X-Ray 05/25/22 22:00 IMPRESSION: 1. Persistent streaky/patchy right basilar opacity, presumably atelectasis. Pneumonia or aspiration cannot be excluded in the appropriate clinical setting. 2. Slightly improved aeration at the left lung base. 3. Equivocal trace right pleural effusion. Chest X-Ray 05/27/22 08:50 IMPRESSION: 1. Tracheostomy tube in position. 2. Right middle lobe atelectasis decreased. 3. No vascular congestion or infiltrate. No definite effusion. Discharge Plan Discharge Anticipated Discharge Date/Time: 05/27/22 11:07 Patient Disposition: Home Health Service Discharge Diagnosis: Angioedema status post tracheostomy Alcohol withdrawal with delirium tremens Referrals: outpt physical therapy/call [facility] for appt [phone] [Other] - 1 Week Lauri Gonzalez BROKER ASSISTANT-BC [Primary Care Provider] - 1 Week Discharge Medications: New doxycycline monohydrate 100 mg Capsule 100 mg PO Q12H Qty: 10 0RF epinephrine 0.3 mg/0.3 mL auto-injector 0.3 mg IM Q4H PRN (Reason: anaphylaxis, Angioedema) Qty: 2 0RF Continued atorvastatin 40 mg tablet 40 mg PO DAILY Qty: 90 3RF folic acid 1 mg tablet 1 mg PO DAILY Qty: 30 2RF (DME) FreeStyle Jeremy 2 [place] Misc See Rx Instructions .Route Qty: 1 3RF Rx Instructions: tid testing (DME) FreeStyle Jeremy 2 Sensor Kit See Rx Instructions .Route Qty: 1 2RF Rx Instructions: TID lisinopril 10 mg tablet 10 mg PO DAILY Qty: 90 3RF metoprolol succinate 50 mg tablet extended release 24 hr 100 mg PO DAILY 90 Days Qty: 180 1RF multivitamin Tablet 1 tab PO DAILY thiamine HCl (vitamin B1) [Vitamin B-1] 100 mg tablet 1 tab PO DAILY pyridoxine (vitamin B6) 50 mg tablet 1 tab PO DAILY oxycodone 5 mg tablet 1 tab PO DAILY PRN (Reason: Moderate Pain (Scale Score 5-6)) duloxetine 30 mg capsule,delayed release(DR/EC) 1 cap PO BID aspirin 81 mg Tablet,Delayed Release (Dr/Ec) 81 mg PO DAILY carbamazepine 200 mg Tablet 200 mg PO BEDTIME Qty: 30 0RF insulin glargine [Lantus Solostar U-100 Insulin] 100 unit/mL (3 mL) insulin pen 30 unit subcut DAILY Held pregabalin 200 mg capsule 1 cap PO TID Hold Instructions: Start by 1 capsule bedtime for 3 days, then increase to twice daily only. Discontinued furosemide 20 mg tablet 20 mg PO DAILY 4 Days Qty: 4 0RF Discharge Orders: Discharge Order (Routine); Ordered 05/27/22 Ordered By: Antoine Rodriguez Diet: Advance to usual diet Activity on Discharge: As tolerated Stand Alone Forms: Patient Portal Discharge page Other Ambulatory Orders: Basic Metabolic Panel (Routine) Timeframe: 3 Days Facility: [facility] - Location: Laboratory Ordered By: Antoine Rodriguez Complete Blood Count no Diff (Routine) Timeframe: 3 Days Facility: [facility] - Location: Laboratory Ordered By: Antoine Rodriguez Care Plan Goals: Read below Health Concerns: Read below Plan of Treatment: Read below Assessment: You were admitted to the ICU for angioedema and respiratory distress. monitored closely in ICU as you developed alcohol withdrawal with tracy bray. evaluated by thoracic surgeon and fractionating still operator who downsized the tracheostomy before discharge. Seen by addiction team regarding alcohol abuse. Finish 5 more days of Doxycycline We advise you complete abstince from alcohol To follow up with dr Gabriel office in 4 weeks To follow up with an enrobing machine corder to test for possible allergns Use Epinephrine if needed for anaphylaxis\angioedema Cut down Pregabalin to 1 cap at bedtime and increase it to 1 cap twice daily in 3 days To repeat blood test in 3 days and follow with your PCP next week Patient Instructions: Tracheostomy Care (DC), Tracheotomy (GEN) Discharge Date/Time: 05/27/22 12:30
--- NOTE | 2022-05-27 11:46 | MHC.SPEECHCO ---
Per RN, Pt is discharging himself from the Hospital. No further CYBER INSTRUCTOR services required.
--- NOTE | 2022-05-27 12:14 | MHC.CM.PN ---
pt dcd today pt has [employer] insurance which no vna accepts he is going home with an order for outpt physical therapy thru [facility] pt and family aware of imformation
[2022-05-27 12:38] LABS: Venous Blood Gas Refer to POC result
[2022-05-27 12:39] LABS: VBG Base Excess -4.7 mmol/L; VBG HCO3 17 mmol/L (22-26); VBG pCO2 24 mmHg; VBG pH 7.44 (7.32-7.43); VBG pO2 109 mmHg
[2022-05-27 12:55] LABS: Anion Gap 20 (12-20); Blood Urea Nitrogen 31 mg/dL (9-16); Carbon Dioxide 19 mmol/L (22-29); Chloride 103 mmol/L (96-108); Creatinine Clr Calc Pharmacy 131.8; Estimated Glomerular Filt Rate > 60; Glucose Random 137 mg/dL (60-115); Potassium 3.5 mmol/L (3.3-5.1); Sodium 138 mmol/L (135-145)
--- NOTE | 2022-05-27 13:17 | PC.NURSE ---
Pt. discharged, family asked if help was needed to get pt. to car. Family refused stating as long as he was in a wheelchair they could handle it. Recieved a call from the lobby that Pt. was unable to get into car with the assistance of family and that extra help was needed. Checked on pt. and offered a chair van and or ambulance both of which family declined. Security able to help pt. into car.
--- NOTE | 2022-05-27 14:04 | MHC.RECOVRN ---
Met with pt in 445 prior to dc. and sister present. Pt ready to leave, dressed and waiting for dc paperwork. Pt reports having significantly reduced alcohol use. Is currently drinking 2 beers plus 5 nips daily. When asked about OMER tx, pt states Never needed it. Pt dismissive of alcohol use. Pt reports alcohol use beginning as a teenager but has never been problematic. Discussed recovery resources and supports. Pt and decline at this time. Provided t/w contact information if needed. Elham Barth APRN, aware.
== END 2022-05-27 12:30 | disposition home health service (06) | DRG 4 ==
LOC: HO.ED 16:07 → HO.SSS 16:19 → HO.ICU 16:27 → HO.IMC 05-25 02:47
PROVIDERS: Internal Medicine Pulmonary Disease; Nurse Practitioner Family; Physician Assistant; Surgery; Absent Provider Internal Medicine Cardiovascular Disease; Admitting Provider Internal Medicine Cardiovascular Disease; Emergency Provider Student in an Organized Health Care Education/Training Program; PCP Nurse Practitioner Family; Visit Provider Student in an Organized Health Care Education/Training Program
DX: T78.04XA Anaphylactic reaction due to fruits and vegetables, initial encounter (principal); J81.0 Acute pulmonary edema; J96.01 Acute respiratory failure with hypoxia; Z68.41 Body mass index [BMI] 40.0-44.9, adult; F10.231 Alcohol dependence with withdrawal delirium; I50.32 Chronic diastolic (congestive) heart failure; J95.03 Malfunction of tracheostomy stoma; T78.3XXA Angioneurotic edema, initial encounter; X58.XXXA Exposure to other specified factors, initial encounter; I25.10 Atherosclerotic heart disease of native coronary artery without angina pectoris; G47.33 Obstructive sleep apnea (adult) (pediatric); E66.01 Morbid (severe) obesity due to excess calories; G40.909 Epilepsy, unspecified, not intractable, without status epilepticus; I11.0 Hypertensive heart disease with heart failure; E87.6 Hypokalemia; F17.210 Nicotine dependence, cigarettes, uncomplicated; E11.40 Type 2 diabetes mellitus with diabetic neuropathy, unspecified; D69.6 Thrombocytopenia, unspecified; J44.9 Chronic obstructive pulmonary disease, unspecified; Z20.822 Contact with and (suspected) exposure to COVID-19; Z98.1 Arthrodesis status; Z88.0 Allergy status to penicillin; Z88.8 Allergy status to other drugs, medicaments and biological substances; Z79.82 Long term (current) use of aspirin; Z79.4 Long term (current) use of insulin; Z79.899 Other long term (current) drug therapy
CPT/HCPCS: 36415; 71045; 80048; 80076; 80307; 81001; 82040; 82077; 82140; 82803; 82947; 83735; 84100; 85025; 85027; 86850; 86900; 86901; 87070; 87077; 87186; 87205; 87635; 92526; 92610; 92950; 93005; 94002; 94003; 97163; 99285; C1758; J0171; J0330; J0461; J1643; J1940; J2185; J2250; J2251; J2270; J2370; J2405; J2920; J2930; J3010; J3370; J3411; P9017

== ENCOUNTER 2022-05-28 08:56 | Emergency (ER) | payer OTHER, SELFPAY ==
[2022-05-28 09:14] VITALS: BP 138/65; PULSE 88; RESP 16; TEMP 36.8; O2SAT 88; O2SAT 93; BMI 38.0
--- NOTE | 2022-05-28 09:16 | PC.RT ---
Pt arrive to ED via EMS, awake, responsive and verbalizing. Pt noted to have #7 shiley uncuffed trach out of the stoma and on his chest. RR 18, spo2 92% and pt in no resp distress. Dr. Lopez was consulted, the stoma site cleaned and prepared. A 6.5 cuffles shiley trach was easily inserted into the stoma and passed with no resistance on the first attempt. Placement verified by ETCO2, lung auscaltation and secreation clearence. Pt left his PMV at home and a new one was furnished, pt able to apply with coaching. Pt able to phonate and is comfortable in bed up 45 degrees in no resp distress. Dr. Lopez is aware.
--- NOTE | 2022-05-28 09:21 | PC.NURSE ---
pt BIBA with dislodged trach. resipiratory at bedside, replaced with 6.5 uncuffed shiley, given trach care and new ties. VSS, airway intact at this time.
--- NOTE | 2022-05-28 09:26 | ED.GENADULT ---
HPI - General Adult General Chief complaint: Dyspnea Stated complaint: D/C FROM HOSP. YESTERDAY, DISLOGED TRACH PER EMS Time Seen by Provider: 05/28/22 09:12 Source: patient and EMS Mode of arrival: EMS Limitations: no limitations History of Present Illness HPI narrative: This is a 56-year-old male who was admitted recently to our facility (05/15) with angioedema, acute respiratory failure requiring trach placement w/ hosp course complicated by alcohol withdrawal seizure/p.edema who was discharged yesterday home. Patient reports this morning when he woke up he realized his trach was dislodged which prompted him to call EMS. Prior to my assessment the patient was seen by respiratory and a 6.5 cuffed Shiley trach was placed. Patient with no complaints now Related Data Home Medications Medication Instructions Recorded Confirmed insulin glargine 100 unit/mL (3 30 unit subcut DAILY 12/26/21 05/15/22 mL) subcutaneous pen (Lantus Solostar U-100 Insulin) aspirin 81 mg tablet,delayed 81 mg PO DAILY 03/17/22 05/15/22 release duloxetine 30 mg capsule,delayed 1 cap PO BID 03/17/22 05/15/22 release multivitamin 1 tab PO DAILY 03/17/22 05/15/22 oxycodone 5 mg tablet 1 tab PO DAILY PRN Moderate Pain 03/17/22 05/15/22 (Scale Score 5-6) pregabalin 200 mg capsule 1 cap PO TID 03/17/22 05/15/22 pyridoxine (vitamin B6) 50 mg 1 tab PO DAILY 03/17/22 05/15/22 tablet thiamine HCl (vitamin B1) 100 mg 1 tab PO DAILY 03/17/22 05/15/22 tablet (Vitamin B-1) Previous Rx's Medication Instructions Recorded atorvastatin 40 mg tablet 40 mg PO DAILY #90 tabs 02/04/22 folic acid 1 mg tablet 1 mg PO DAILY #30 tabs 03/07/22 carbamazepine 200 mg tablet 200 mg PO BEDTIME #30 tabs 03/19/22 FreeStyle Jeremy 2 [place] (flash #1 ea 04/02/22 glucose scanning reader) FreeStyle Jeremy 2 Sensor (flash #1 ea 04/02/22 glucose sensor) lisinopril 10 mg tablet 10 mg PO DAILY #90 tabs 04/18/22 metoprolol succinate 50 mg 100 mg PO DAILY 90 days #180 tabs 04/19/22 tablet,extended release 24 hr doxycycline monohydrate 100 mg 100 mg PO Q12H #10 caps 05/27/22 capsule epinephrine 0.3 mg/0.3 mL 0.3 mg (0.3 mL) IM Q4H PRN 05/27/22 injection, auto-injector anaphylaxis, Angioedema #2 ea Allergies Allergy/AdvReac Type Severity Reaction Status Date / Time cyclobenzaprine Allergy Unknown RASH Verified 04/02/22 08:22 [From FLEXERIL] lisinopril Allergy Unknown Unknown Verified 05/23/22 22:10 penicillin V Allergy Unknown anaphylaxis Verified 04/02/22 08:22 pineapple Allergy Unknown Unknown Verified 05/24/22 18:25 Review of Systems Review of Systems: Yes all other systems are reviewed and are negative Constitutional: Constitutional: Reports no additional constitutional complaints, Denies body ache(s), Denies chills, Denies fever(s), Denies headache(s) and Denies weakness Eyes: Eyes: Reports no additional eye complaints and Denies change in vision ENT: Reports system reviewed and no additional complaints, except as documented, Denies dizziness, Denies headache(s), Denies nasal congestion, Denies nasal discharge and Denies neck pain Cardiovascular: Cardiovascular: Reports no additional cardiovascular complaints, Denies chest pain, Denies leg edema and Denies dyspnea Respiratory: Respiratory: Reports no additional respiratory complaints, Denies cough and Denies dyspnea Gastrointestinal: Gastrointestinal: Reports no additional gastrointestinal complaints, Denies abdominal pain, Denies diarrhea, Denies nausea and Denies vomiting Genitourinary: Genitourinary: Denies urinary incontinence Musculoskeletal: Musculoskeletal: Reports no additional musculoskeletal complaints, Denies back pain, Denies arthralgias, Denies joint swelling, Denies neck pain, Denies numbness and Denies tingling Integumentary/Breasts: Skin/Breast: Reports system reviewed and no additional complaints, except as docu and Denies rash Neurologic: Reports system reviewed and no additional complaints, except as documented, Denies dizziness, Denies headache(s), Denies numbness, Denies tingling and Denies weakness PMF Past Medical History Attestation statement: The following information was validated with the patient. Source: old records reviewed and nursing notes reviewed Medical History CAD (coronary artery disease) Fatty liver Foot ulcer, left Fracture of right tibia and fibula History of colon polyps History of hepatitis C History of TIA (transient ischemic attack) HTN (hypertension) Insulin dependent type 2 diabetes mellitus Metatarsal bone fracture Nicotine dependence, cigarettes, uncomplicated Obesity KD (obstructive sleep apnea) Seizure disorder Transaminitis Surgical History History of cardiac catheterization (~2018) History of colonoscopy (~2018) History of hernia repair History of lumbar spinal fusion History of surgery on lower extremity (~2019) Family History Family History Father CVD (cardiovascular disease) Colon cancer Mother No problems noted. Brother Liver cancer Paternal Aunt Colon cancer Social History Social History Household Members: Unknown / Unable to assess Household Members Other:: Housing: Unknown / Unable to assess Do you presently have visiting nurse or other home services: No Unable to assess alcohol history related to: Unknown Alcohol intake: current Alcohol intake frequency: holidays/special occasions only Alcohol type: beer and hard liquor Patient Tobacco Use Status: Tobacco use Unknown Tobacco use type: Cigarette Cigarette Packs Per Day: 1 Cigarettes Per Day: 20 Second Hand Smoke Exposure: Yes Substance Use Type: Marijuana Advance Directives: Yes Advance Directives on File: Yes Advance Directives Date on File: 03/20/22 service: No Current occupational status: disabled Current occupation: right handed Cognitive needs: No Hearing needs: No Vision needs: No Physical Exam ED Vital Signs: Vital Signs - 24 hr 05/28/22 09:14 05/28/22 11:49 Temperature 98.2 F Pulse Rate 88 88 Respiratory Rate 16 Blood Pressure 138/65 138/65 Pulse Oximetry 93 93 Oxygen Delivery Method Room Air BMI result Body Mass Index 38.0 Const General: cooperative, healthy appearing, comfortable and no acute distress Orientation/consciousness: patient oriented x3 Limitations: no limitations HENMT Head: Yes normal to inspection Ears: hearing grossly normal bilaterally General nose exam: Normal external nose present Face and sinus: Yes normal facial exam Mouth: Normal oral and palatal mucosa present Throat: Yes posterior oropharynx normal, Yes tonsils normal and Yes uvula midline Eyes General: appearance normal, both eyes and all related structures Pupils: Equal, round and reactive pupils present Neck Other: no stridor/crepitus Neck images: 1. Trach present Chest Chest palpation & inspection: normal inspection of the chest Resp Effort & Inspection: normal respiratory effort Auscultation: clear to auscultation bilaterally Cardio Rate: regular rate Rhythm: regular rhythm Peripheral pulses: Peripheral pulses 2+ throughout GI Inspection: Yes normal to inspection Palpation (GI): Soft to palpation and nontender Back/Spine/Pelvis Thoracic/Lumbar Spine: thoracic and lumbar spine normal to inspection Skin General skin exam: no rashes or lesions noted Neuro General: patient oriented x3 and moves all extremities Cranial nerves: Yes Equal, round and reactive pupils present Cognition (Neuro): normal cognition Course Course Course Narrative: Patient was seen by Physical therapy who recommended short-term rehab. Patient does not want to go to short-term rehab and wants to go home. Patient has capacity to make his own medical decisions. His sister and his were at the bedside. They are agreeable with plan to bring the patient home. All questions were answered. Trach teaching was done by respiratory therapy. Supplies were sent to [facility] for the trach Medical Decision Making Medical Decision Making MDM Narrative: 56-year-old male here with dislodged trach after being discharged from this facility May 27 after having prolonged hospitalization for acute respiratory failure secondary to angioedema requiring emergent trach placement, hospital course complicated by alcohol withdrawal seizures and pulmonary edema. The patient immediately had a new trach placed by respiratory therapy on arrival. Patient with no complaints. Vitals are stable. Family is concerned that they are unable to care for patient as he is quite weak. Will obtain physical therapy and case management consultations determine if short-term rehab is an option Differential Diagnosis Differential Diagnoses: The differential diagnosis associated with the presentation includes Dislodged trach Admission/Observation Consideration of admission/observation: Escalation of care including admission/observation considered Generalized weakness, family unable to care for patient. Will likely need short-term rehab Lab Data Labs: Lab Results 05/28/22 Range/Units 09:40 COVID-19 ([facility]ARLA) Negative (Negative) COVID-19 Clin Com See Note Independent Historian Clinical information obtained from an independent historian. History obtained from or confirmed by: Spouse External Record Review External record reviewed: Inpatient record Reviewed inpatient record from recent hospitalization Discharge Plan Discharge Clinical Impression: Tracheostomy mechanical complication Patient Disposition: Home, Self-Care Instructions: Tracheostomy Care (ED), Tracheotomy (DC) Additional Instructions: Continue your home medication Follow-up with your outpatient appointments scheduled Return for any worsening symptoms It was recommended you go to short term rehab but you declined this Prescriptions: No Action atorvastatin 40 mg tablet 40 mg PO DAILY Qty: 90 3RF folic acid 1 mg tablet 1 mg PO DAILY Qty: 30 2RF (DME) FreeStyle Jeremy 2 [place] Misc See Rx Instructions .Route Qty: 1 3RF Rx Instructions: tid testing (DME) FreeStyle Jeremy 2 Sensor Kit See Rx Instructions .Route Qty: 1 2RF Rx Instructions: TID lisinopril 10 mg tablet 10 mg PO DAILY Qty: 90 3RF metoprolol succinate 50 mg tablet extended release 24 hr 100 mg PO DAILY 90 Days Qty: 180 1RF multivitamin Tablet 1 tab PO DAILY thiamine HCl (vitamin B1) [Vitamin B-1] 100 mg tablet 1 tab PO DAILY pyridoxine (vitamin B6) 50 mg tablet 1 tab PO DAILY oxycodone 5 mg tablet 1 tab PO DAILY PRN (Reason: Moderate Pain (Scale Score 5-6)) duloxetine 30 mg capsule,delayed release(DR/EC) 1 cap PO BID pregabalin 200 mg capsule 1 cap PO TID Hold Instructions: Start by 1 capsule bedtime for 3 days, then increase to twice daily only. aspirin 81 mg Tablet,Delayed Release (Dr/Ec) 81 mg PO DAILY carbamazepine 200 mg Tablet 200 mg PO BEDTIME Qty: 30 0RF doxycycline monohydrate 100 mg Capsule 100 mg PO Q12H Qty: 10 0RF epinephrine 0.3 mg/0.3 mL auto-injector 0.3 mg IM Q4H PRN (Reason: anaphylaxis, Angioedema) Qty: 2 0RF insulin glargine [Lantus Solostar U-100 Insulin] 100 unit/mL (3 mL) insulin pen 30 unit subcut DAILY Interventions: ED Discharge Assessment Last Done: 05/28/22 14:38 Discharge Date/Time: 05/28/22 15:16
--- NOTE | 2022-05-28 09:41 | PC.NURSE ---
expressed concerns about taking care of patient at home, MD made aware, plan for PT/CM.
--- NOTE | 2022-05-28 09:55 | MHC.CM.ED ---
Addendum entered by Mackenzie Vick 05/28/22 12:35: Julio from RT met with patient and . Provided trach cleaning and maintenance education. DME ordered from [facility], including additional trachs and a suction unit. Patient and feel they can safely return home at this time. Original Note: Received case management consult from Emily KELLEY. Patient was discharged home from [facility] on 05/26 with outpatient [facility] physical therapy. No VNA services were able to be arranged due to patient's insurance. Patient's now feels that she can't care for him at this time at home. Covid swab is pending. HCP verified to be on file. Patient received 3 Pfizer vaccines. Trach was placed on 05/15. Referral broadcasted in [facility] within 25 miles to see which facilities would be able to acoomodate patient at this time. Continue to monitor for d/c needs.
[2022-05-28 10:13] LABS: COVID-19 Test Negative (Negative); IDNOW Serial# 9DB6401D
[2022-05-28 11:49] VITALS: BP 138/65; PULSE 88; O2SAT 93
--- NOTE | 2022-05-28 12:49 | PC.RT ---
Pt and family education concerning trach care, sterile suction, innercannula change and passey dez valve use done at bedside. , sister and patient present. review of general stoma care including cleaning and application of sterile dry dressing were demonstrated by this RT followed by family participation concluding in a successful return demonstration. The procedure of sterile suction tech was done using 10fr suction kit and 80mmhg of suction pressure. The passy dez valve was removed, gloves were donned in sterile fashion, keeping one hand clean and the other sterile. The catheter was introduced slowly until coughing was achieved and withdrawn steadily while applying suction intermittently, family participation noted, indications, complications as well as hazards were covered. The inner cannula change was covered, not only the proper exchange but the indications as well such as plugging, this was performed by the patients with no issue. Care and maint iof the PMV was covered with cleaning instructions as per the navy airspace officer. [employer] has been notified about home services ie DME for tracheostomy at home, are actively underway. No further questions from the family or patient are noted.
--- NOTE | 2022-05-28 12:56 | MHC.CM.ED ---
Addendum entered by Mackenzie Vick 06/03/22 07:45: No VNA agency has been able to accept patient due to insurance. Original Note: T/W met with patient and to verify discharge plan of home via BLS with [facility] providing resp supplies and trach teaching. T/W explained [employer] is not contracted with many agencies in this area. Both aware referral has been broadcasted and will be notified by T/W if an agency is found. Both verbalize understanding. Margarita RN and Emily KELLEY aware. Continue to monitor for d/c needs.
== END 2022-05-28 15:16 | disposition home or self-care (01) ==
PROVIDERS: Nurse Practitioner Family; Emergency Provider Emergency Medicine Emergency Medical Services; PCP Nurse Practitioner Family
DX: J95.09 Other tracheostomy complication (principal); R06.02 Shortness of breath; F10.239 Alcohol dependence with withdrawal, unspecified; Y90.9 Presence of alcohol in blood, level not specified; R56.9 Unspecified convulsions; E11.9 Type 2 diabetes mellitus without complications; I25.10 Atherosclerotic heart disease of native coronary artery without angina pectoris; R26.89 Other abnormalities of gait and mobility; J81.1 Chronic pulmonary edema; F17.210 Nicotine dependence, cigarettes, uncomplicated; Z20.822 Contact with and (suspected) exposure to COVID-19; Z20.828 Contact with and (suspected) exposure to other viral communicable diseases; Z79.899 Other long term (current) drug therapy; Z79.4 Long term (current) use of insulin; Z71.6 Tobacco abuse counseling
CPT/HCPCS: 31502; 87635; 97163; 99282; 99284

== ENCOUNTER 2022-06-08 13:01 | Emergency (ER) | payer OTHER, SELFPAY ==
[2022-06-08 13:07] VITALS: BP 138/92; PULSE 91; O2SAT 94
[2022-06-08 13:17] VITALS: BP 126/79; PULSE 83; RESP 18; TEMP 36.8; O2SAT 95; BMI 34.8
[2022-06-08 13:19] VITALS: RESP 18
--- NOTE | 2022-06-08 13:32 | PC.RT ---
pt arrived via ems for displacement of trach. pt trach was partially dislodged. rt able to put inplace without complications. pt stable. notified.
--- NOTE | 2022-06-08 13:35 | ED_ITS ---
HPI - General Adult General Chief complaint: General Medical Stated complaint: TRACH FELL OUT Time Seen by Provider: 06/08/22 13:10 Source: patient, EMS and old records reviewed Mode of arrival: EMS Limitations: no limitations History of Present Illness HPI narrative: 56 yo male with history of recent emergent tracheostomy 05/15 due to FADIA inhibitor induced angioedema, hx obesity, HTN who presents to the ER from home for evaluation of tracheostomy dislodgment that occurred just prior to arrival. Patient states he was coughing and his inner cannula popped out and his trach became dislodged. He is due to get tracheostomy supplies today, ran out of them at home. He states he has been doing well with his tracheostomy and is due to see Dr. Lopez on Friday. He is able to cough up his secretions. His per forms daily trach care. MD complaint: trach dislodged Onset (ago): minute(s) Location: neck Radiation: non-radiation Severity: mild Pain Consistency: now resolved Relieving factors: none Exacerbating factors: other (coughing) Associated symptoms: denies other symptoms Treatments prior to arrival: none Related Data Home Medications Medication Instructions Recorded Confirmed insulin glargine 100 unit/mL (3 30 unit subcut DAILY 12/26/21 06/04/22 mL) subcutaneous pen (Lantus Solostar U-100 Insulin) aspirin 81 mg tablet,delayed 81 mg PO DAILY 03/17/22 06/04/22 release duloxetine 30 mg capsule,delayed 1 cap PO BID 03/17/22 06/04/22 release multivitamin 1 tab PO DAILY 03/17/22 06/04/22 oxycodone 5 mg tablet 1 tab PO DAILY PRN Moderate Pain 03/17/22 06/04/22 (Scale Score 5-6) pregabalin 200 mg capsule 1 cap PO TID 03/17/22 06/04/22 pyridoxine (vitamin B6) 50 mg 1 tab PO DAILY 03/17/22 06/04/22 tablet thiamine HCl (vitamin B1) 100 mg 1 tab PO DAILY 03/17/22 06/04/22 tablet (Vitamin B-1) Previous Rx's Medication Instructions Recorded atorvastatin 40 mg tablet 40 mg PO DAILY #90 tabs 02/04/22 carbamazepine 200 mg tablet 200 mg PO BEDTIME #30 tabs 03/19/22 FreeStyle Jeremy 2 [place] (flash #1 ea 04/02/22 glucose scanning reader) FreeStyle Jeremy 2 Sensor (flash #1 ea 04/02/22 glucose sensor) lisinopril 10 mg tablet 10 mg PO DAILY #90 tabs 04/18/22 metoprolol succinate 50 mg 100 mg PO DAILY 90 days #180 tabs 04/19/22 tablet,extended release 24 hr doxycycline monohydrate 100 mg 100 mg PO Q12H #10 caps 05/27/22 capsule epinephrine 0.3 mg/0.3 mL 0.3 mg (0.3 mL) IM Q4H PRN 05/27/22 injection, auto-injector anaphylaxis, Angioedema #2 ea folic acid 1 mg tablet 1 mg PO DAILY #30 tabs 06/04/22 Allergies Allergy/AdvReac Type Severity Reaction Status Date / Time cyclobenzaprine Allergy Unknown RASH Verified 06/04/22 17:34 [From FLEXERIL] penicillin V Allergy Unknown anaphylaxis Verified 06/04/22 17:34 pineapple Allergy Unknown Unknown Verified 06/04/22 17:34 FADIA Inhibitors AdvReac Severe Angioedema Verified 06/09/22 10:43 Review of Systems Review of Systems: Yes all other systems are reviewed and are negative PENDING SALE TO [facility] Past Medical History Medical History CAD (coronary artery disease) COPD (chronic obstructive pulmonary disease) Diabetes Diabetic neuropathy Diastolic CHF ETOH abuse Fatty liver Foot ulcer, left Fracture of right tibia and fibula History of colon polyps History of hepatitis C History of TIA (transient ischemic attack) HTN (hypertension) Insulin dependent type 2 diabetes mellitus Metatarsal bone fracture Microalbuminuria Morbid obesity Nicotine dependence, cigarettes, uncomplicated Obesity KD (obstructive sleep apnea) Restrictive airway disease Seizure disorder Transaminitis Surgical History History of cardiac catheterization (~2018) History of colonoscopy (~2018) History of hernia repair History of lumbar spinal fusion History of surgery on lower extremity (~2019) Family History Family History Father CVD (cardiovascular disease) Colon cancer Mother No problems noted. Brother Liver cancer Paternal Aunt Colon cancer Social History Social History Household Members: Unknown / Unable to assess Household Members Other:: Housing: Unknown / Unable to assess Do you presently have visiting nurse or other home services: No Unable to assess alcohol history related to: Unknown Alcohol intake: unknown Patient Tobacco Use Status: Tobacco use Unknown Tobacco use type: Cigarette Cigarette Packs Per Day: 1 Cigarettes Per Day: 20 Smoked in Last 30 Days: No Second Hand Smoke Exposure: Yes Use of substances other than those prescribed or required for medical reasons: Unknown Substance Use Type: Marijuana Advance Directives: Yes Advance Directives on File: Yes Advance Directives Date on File: 03/20/22 service: No Current occupational status: disabled Current occupation: right handed Cognitive needs: No Hearing needs: No Vision needs: No Physical Exam ED Vital Signs: Vital Signs - 24 hr 06/08/22 13:17 06/08/22 13:19 Temperature 98.3 F Pulse Rate 83 Respiratory Rate 18 18 Blood Pressure 126/79 Pulse Oximetry 95 Oxygen Delivery Method Room Air BMI result Body Mass Index 34.8 Appearance: Alert. Oriented X3. No acute distress. HEENT: normal external inspection Neck: tracheostomy in adequate position, trach ties in place, mucus and yellow fibrinous changes to the inferior portion of the stoma, no surrounding erythema, no bleeding CVS: Normal heart rate and rhythm. Pulses normal. Respiratory: No respiratory distress. Skin: Skin warm and dry. Normal skin color. Normal skin turgor. No rashes. Extremities: normal inspection x4. Neuro: Oriented X 3. No motor deficit. No sensory deficit. Medical Decision Making Medical Decision Making MDM Narrative: 56-year-old male with a history of recent emergent tracheostomy due to FADIA- inhibitor induced angioedema, placed less than 1 month ago presents to the ER for evaluation of tracheostomy dislodgement that occurred just prior to arrival. Likely tracheostomy was able to be easily replaced back and adequate positioning. He had no episodes of hypoxia or difficulty breathing. No occlusion or mucus plugging noted in the trach. It is healing appropriately. He is due to see pulmonary this week, likely decannulation. Stable for discharge home with patient. Differential Diagnosis Differential Diagnoses: The differential diagnosis associated with the presentation includes Trach dislodgement, no evidence false tracheostomy tract Independent Historian Clinical information obtained from an independent historian. History obtained from or confirmed by: EMS External Record Review External record reviewed: Inpatient record and Outpatient record Chronic Conditions Patient?s care impacted by: Hypertension and Other (obesity) Critical Care Time Critical Care Time Critical Care Time: No Discharge Plan Discharge Clinical Impression: Tracheostomy care Patient Disposition: Home, Self-Care Instructions: Tracheostomy Care (ED) Additional Instructions: Your trach and inner cannula are in the appropriate position. Follow-up with Dr. Lopez on Friday as scheduled If you develop new or worsening symptoms call 911 or come back to the ER for further evaluation. Prescriptions: No Action atorvastatin 40 mg tablet 40 mg PO DAILY Qty: 90 3RF (DME) FreeStyle Jeremy 2 [place] Misc See Rx Instructions .Route Qty: 1 3RF Rx Instructions: tid testing (DME) FreeStyle Jeremy 2 Sensor Kit See Rx Instructions .Route Qty: 1 2RF Rx Instructions: TID lisinopril 10 mg tablet 10 mg PO DAILY Qty: 90 3RF metoprolol succinate 50 mg tablet extended release 24 hr 100 mg PO DAILY 90 Days Qty: 180 1RF folic acid 1 mg tablet 1 mg PO DAILY Qty: 30 2RF multivitamin Tablet 1 tab PO DAILY thiamine HCl (vitamin B1) [Vitamin B-1] 100 mg tablet 1 tab PO DAILY pyridoxine (vitamin B6) 50 mg tablet 1 tab PO DAILY oxycodone 5 mg tablet 1 tab PO DAILY PRN (Reason: Moderate Pain (Scale Score 5-6)) duloxetine 30 mg capsule,delayed release(DR/EC) 1 cap PO BID pregabalin 200 mg capsule 1 cap PO TID Hold Instructions: Start by 1 capsule bedtime for 3 days, then increase to twice daily only. aspirin 81 mg Tablet,Delayed Release (Dr/Ec) 81 mg PO DAILY carbamazepine 200 mg Tablet 200 mg PO BEDTIME Qty: 30 0RF doxycycline monohydrate 100 mg Capsule 100 mg PO Q12H Qty: 10 0RF epinephrine 0.3 mg/0.3 mL auto-injector 0.3 mg IM Q4H PRN (Reason: anaphylaxis, Angioedema) Qty: 2 0RF insulin glargine [Lantus Solostar U-100 Insulin] 100 unit/mL (3 mL) insulin pen 30 unit subcut DAILY Interventions: ED Discharge Assessment Last Done: 06/08/22 13:58 Discharge Date/Time: 06/08/22 13:59
== END 2022-06-08 13:59 | disposition home or self-care (01) ==
PROVIDERS: Emergency Provider Emergency Medicine; PCP Nurse Practitioner Family
DX: J95.09 Other tracheostomy complication (principal); E11.9 Type 2 diabetes mellitus without complications; I10 Essential (primary) hypertension; B19.20 Unspecified viral hepatitis C without hepatic coma; F17.210 Nicotine dependence, cigarettes, uncomplicated; F12.90 Cannabis use, unspecified, uncomplicated; E66.9 Obesity, unspecified; Z68.34 Body mass index [BMI] 34.0-34.9, adult; Z86.73 Personal history of transient ischemic attack (TIA), and cerebral infarction without residual deficits; Z79.4 Long term (current) use of insulin; Z79.82 Long term (current) use of aspirin; Z79.899 Other long term (current) drug therapy; Z79.02 Long term (current) use of antithrombotics/antiplatelets
CPT/HCPCS: 99284

== ENCOUNTER → 2022-06-18 10:40 | Outpatient (BNVA) | payer OTHER, SELFPAY | PROVIDERS: PCP Nurse Practitioner Family; Visit Provider Internal Medicine Pulmonary Disease | DX: Z13.89 Encounter for screening for other disorder (principal) ==

== ENCOUNTER → 2022-07-23 10:58 | Outpatient (BNVA) | payer OTHER, SELFPAY | PROVIDERS: PCP Nurse Practitioner Family; Visit Provider Internal Medicine Pulmonary Disease | DX: G47.33 Obstructive sleep apnea (adult) (pediatric) (principal); J44.9 Chronic obstructive pulmonary disease, unspecified | CPT/HCPCS: 99212 ==

== ENCOUNTER → 2022-08-07 12:42 | Outpatient (REF) | payer OTHER, SELFPAY | LOC: HO.SL 12:42 | PROVIDERS: PCP Nurse Practitioner Family; Visit Provider Internal Medicine Pulmonary Disease | DX: G47.33 Obstructive sleep apnea (adult) (pediatric) (principal) | CPT/HCPCS: 95806 ==

== ENCOUNTER → 2022-09-06 08:45 | Outpatient (BNVA) | payer OTHER, SELFPAY | PROVIDERS: PCP Nurse Practitioner Family; Visit Provider Nurse Practitioner Family ==

== ENCOUNTER 2022-09-17 08:52 | Outpatient (REF) | payer OTHER, SELFPAY ==
[2022-09-17 11:27] LABS: MANUAL DIFF FLAG NO
[2022-09-17 11:42] LABS: Basophils Absolute Auto 0.1 X10*3/uL (0.0-0.2); Basophils Percent Auto 1.3 % (0-2); Eosinophils Absolute Auto 0.2 X10*3/uL (0.0-0.4); Eosinophils Percent Auto 1.7 % (0-4); Hematocrit 51.6 % (42.0-52.0); Hemoglobin 17.4 g/dl (14.0-18.0); Imm Gran Abs Auto 0.04 X10*3/uL (0.00-0.03); Imm Gran Pct Auto 0.4 % (0.0-0.4); Lymphocytes Absolute Auto 2.6 X10*3/uL (1.2-4.9); Lymphocytes Percent Auto 25.2 % (20-40); Mean Corpuscular HGB Conc 33.7 g/dl (31.0-36.0); Mean Corpuscular Hemoglobin 35.5 pg (27.0-33.0); Mean Corpuscular Volume 105.3 fL (80.0-98.0); Mean Platelet Volume 10.3 fL (9.4-12.4); Monocytes Absolute Auto 0.7 X10*3/uL (0.1-1.2); Monocytes Percent Auto 6.9 % (2-11); Neutrophils Absolute Auto 6.6 x10*3/uL (2.0-8.3); Neutrophils Percent Auto 64.5 % (45-73); Platelet Count 134 X10*3/uL (160-400); Red Cell Distribution Width 14.4 % (11.0-16.0); White Blood Count 10.2 X10*3/uL (4.8-10.8)
[2022-09-17 11:55] LABS: Estimated Average Glucose 105 mg/dL; Hemoglobin A1C 158.6167 umol/L; Hemoglobin A1c % 5.3 %
[2022-09-17 12:02] LABS: Alanine Aminotransferase 23 U/L (0-40); Alkaline Phosphatase 121 U/L (39-117); Anion Gap 19 (12-20); Aspartate Amino Transferase 45 U/L (5-37); Bilirubin Total 0.5 mg/dL (0.0-1.0); Blood Urea Nitrogen 8 mg/dL (9-16); Calcium 9.7 mg/dL (8.4-10.2); Carbon Dioxide 26 mmol/L (22-29); Chloride 100 mmol/L (96-108); Cholesterol 160 mg/dL; Estimated Glomerular Filt Rate > 60; Glucose Fasting 69 mg/dL (60-99); HDL Cholesterol 47 mg/dL; LDL Cholesterol Calculated 57 mg/dl; Potassium 4.2 mmol/L (3.3-5.1); Sodium 141 mmol/L (135-145); Total Protein 8.1 g/dL (6.5-8.0); Triglycerides 284 mg/dL
[2022-09-17 13:10] LABS: Creatinine Urine 102.96 mg/dL; Microalbum/Creatinine Ratio Ur 112.6 ug/mg cr
== END 2022-09-17 08:53 | disposition home or self-care (01) ==
LOC: HO.HMGCLDS 08:52
PROVIDERS: PCP Nurse Practitioner Family; Visit Provider Nurse Practitioner Family
DX: E11.9 Type 2 diabetes mellitus without complications (principal); Z79.4 Long term (current) use of insulin
CPT/HCPCS: 36415; 80053; 80061; 82043; 83036; 85025

== ENCOUNTER 2022-12-04 14:44 | Inpatient (IN) | payer OTHER, SELFPAY ==
[2022-12-04] VITALS (22 sets, daily range): BP systolic 86–166; BP diastolic 50–89; PULSE 67–99; RESP 13–18; TEMP 35.6–36.4; O2SAT 92–99; BMI 34.3
--- NOTE | ~2022-12-04 | XR_ITS ---
EXAMINATION: XR CHEST CLINICAL INFORMATION: NG tube placement. COMPARISON: Chest x-ray 12/04/2022. TECHNIQUE: Frontal view of the chest was obtained. FINDINGS: The lungs are well-expanded and clear of acute pneumonic process. The heart size is enlarged. Pulmonary vascularity is normal. Tip of endotracheal tube is 3 cm above the kvng. Tip of endotracheal tube is below the diaphragm in the stomach. No gross bony abnormality seen. XR/XR chest 1V IMPRESSION: 1. Cardiomegaly. No acute process seen. 2. Support lines and catheters are in satisfactory position.
--- NOTE | ~2022-12-04 | CT_ITS ---
EXAMINATION: CT HEAD WITHOUT CONTRAST CLINICAL INFORMATION: Fall COMPARISON: None available. TECHNIQUE: Contiguous axial imaging was performed from the skull base to vertex without intravenous administration of contrast. This CT examination was performed using dose optimization techniques as appropriate, variously including the following: *Automated exposure control *Adjustment of mA and/or kV according to patient size (this includes techniques or standardized protocols for targeted exams where dose is matched to indication/reason for exam; i.e. extremities or head) *Use of iterative reconstruction technique DLP: 1921 mGy-cm FINDINGS: There is no evidence of acute intracranial hemorrhage or territorial infarction. Very mild soft tissue swelling overlying the frontal midline calvarium. No abnormal mass effect or midline shift is seen. Corbett to white matter differentiation is well preserved. No extra-axial fluid collections are identified. The ventricles are normal in size. There is no abnormal attenuation within the brain parenchyma. Questionable minimally displaced fracture of the left nasal bone. Correlation with point tenderness. Mucoperiosteal thickening of the ethmoid sinuses. The osseous structures and soft tissues are normal. The mastoid air cells and visualized portions of the paranasal sinuses are well aerated. CT/CT head/brain wo IV con IMPRESSION: 1. No acute intracranial pathology. 2. Very mild soft tissue swelling overlying the frontal midline calvarium. 3. Questionable minimally displaced fracture of the left nasal bone. Correlation with point tenderness.
--- NOTE | ~2022-12-04 | CT_ITS ---
EXAMINATION: CT ABDOMEN AND PELVIS WITH CONTRAST CLINICAL INFORMATION: Right flank hematoma post fall. COMPARISON: CT scans dating between March 16, 2022 and October 24, 2014. TECHNIQUE: Multidetector volumetric images were obtained from the superior aspect of the liver through the pubic symphysis following administration 85 mL of Omnipaque 350 intravenous contrast. Sagittal and coronal reformatted images were obtained on the technologist's workstation. Oral contrast: No This CT examination was performed using dose optimization techniques as appropriate, variously including the following: *Automated exposure control *Adjustment of mA and/or kV according to patient size (this includes techniques or standardized protocols for targeted exams where dose is matched to indication/reason for exam; i.e. extremities or head) *Use of iterative reconstruction technique DLP: 1167 mGy-cm FINDINGS: LUNG BASES: Mild bibasilar dependent airspace disease, new compared with March 16, 2022. No effusion. Elevation of the right hemidiaphragm. LIVER, GALLBLADDER, AND BILIARY TREE: Fatty infiltration of the liver. Liver measures approximately 22 cm in sagittal dimension. Question relative atrophy of the right hepatic lobe and subtle nodularity of the contour of the liver. No focal hepatic lesion or biliary ductal dilatation is appreciated. Unremarkable appearance of the gallbladder. PANCREAS: Unremarkable SPLEEN: Unremarkable ADRENAL GLANDS: Unremarkable KIDNEYS AND URETERS: The kidneys appear unremarkable in size, shape, and attenuation. No hydronephrosis, hydroureter, or calculi seen. BLADDER: Unremarkable GASTROINTESTINAL TRACT: Scattered diverticula predominantly involving the sigmoid colon, without evidence of diverticulitis. Submucosal deposition of fat involving the proximal ascending colon possibly the distal ileum. ABDOMINAL WALL: Right flank contusion with possible approximately 2.5 cm in thickness by 8 cm diameter subcutaneous hematoma (image 45, series 13). Mid upper anterior abdominal wall surgical mesh. No significant hernia is appreciated. LYMPH NODES: No evidence of adenopathy by size criteria. VASCULAR: Unremarkable PELVIC VISCERA: Unremarkable OSSEOUS STRUCTURES: No acute finding. Pseudoarthrosis of an old fracture of the posterior aspect of the right 11th rib. Bilateral transpedicular screws, rods, and disc spacing devices at L3-L5. Moderate disc degenerative change with vacuum disc phenomenon at L1-L3. CT/CT abdomen pelvis w IV con IMPRESSION: Right flank contusion with possible approximately 2.5 cm in thickness by 8 cm diameter subcutaneous hematoma. No evidence of acute fracture or visceral hematoma/laceration. Fatty infiltration of the liver. Mild hepatomegaly. Question relative atrophy of the right hepatic lobe and subtle nodularity of the contour of the liver. These findings are suspicious for hepatic cirrhosis. No evidence of splenomegaly or ascites. Mild bibasilar dependent airspace disease suggesting atelectasis, fibrotic changes, and/or infiltrates, new compared with March 16, 2022. Additional findings, as above.
--- NOTE | ~2022-12-04 | XR_ITS ---
EXAMINATION: XR CHEST CLINICAL INFORMATION: Post intubation, ETT placement COMPARISON: Chest radiograph 05/27/2022 TECHNIQUE: Frontal view of the chest was obtained. FINDINGS: The endotracheal tube tip is difficult to visualize but appears to terminate approximately 2 cm above the kvng. The heart is enlarged. There are low lung volumes. Blunting of the left costophrenic sulcus may reflect atelectasis and/or small effusion. There is no pneumothorax. XR/XR chest 1V IMPRESSION: 1. Endotracheal tube tip is difficult to visualize but appears to terminate approximately 2 cm above the kvng. 2. Low lung volumes. Blunting of the left costophrenic sulcus may reflect atelectasis and/or small effusion.
--- NOTE | 2022-12-04 14:54 | ED_ITS ---
HPI - Allergic Reaction General Chief complaint: Allergic Reaction Stated complaint: swelling on left side of face, per ems Time Seen by Provider: 12/04/22 14:46 Source: patient and old records reviewed Mode of arrival: EMS Limitations: no limitations History of Present Illness HPI narrative: 57 yo male with PMH of DM, obesity, KD, CAD, HTN, COPD, restrictive airway disease, thrombocytopenia s/p emergent trach for angioedema back in May 2022 (plan was for intubation then patient sounds like he had resp arrest and possible seizure) unsure cause of angioedema. Patient still takes lisinopril. He thinks his cat caused this. He has no family members who have this. last time didn't respond to TXA/FFP or other treatments. Started around 10am took a nap, drank some beers too. MD complaint: facial swelling Onset (ago): hour(s) (10am today) Exposure: unknown Symptoms: lip swelling, difficulty swallowing, difficulty breathing and tongue swelling Severity: severe Treatment prior to arrival: benadryl (25mg oral) Previous Allergic Reaction History: prior ED visit(s) (sig episode requiring emergent trach) Related Data Home Medications Medication Instructions Recorded Confirmed aspirin 81 mg tablet,delayed 81 mg PO DAILY 03/17/22 09/06/22 release duloxetine 30 mg capsule,delayed 1 cap PO BID 03/17/22 09/06/22 release multivitamin 1 tab PO DAILY 03/17/22 09/06/22 oxycodone 5 mg tablet 1 tab PO DAILY PRN Moderate Pain 03/17/22 09/06/22 (Scale Score 5-6) pregabalin 200 mg capsule 1 cap PO TID 03/17/22 09/06/22 pyridoxine (vitamin B6) 50 mg 1 tab PO DAILY 03/17/22 09/06/22 tablet thiamine HCl (vitamin B1) 100 mg 1 tab PO DAILY 03/17/22 09/06/22 tablet (Vitamin B-1) ipratropium 0.5 mg-albuterol 3 mg 3 ml inhalation Q4-6H PRN 08/14/22 09/06/22 (2.5 mg base)/3 mL nebulization soln Previous Rx's Medication Instructions Recorded atorvastatin 40 mg tablet 40 mg PO DAILY #90 tabs 02/04/22 carbamazepine 200 mg tablet 200 mg PO BEDTIME #30 tabs 03/19/22 lisinopril 10 mg tablet 10 mg PO DAILY #90 tabs 04/18/22 metoprolol succinate 50 mg 100 mg PO DAILY 90 days #180 tabs 04/19/22 tablet,extended release 24 hr epinephrine 0.3 mg/0.3 mL 0.3 mg (0.3 mL) IM Q4H PRN 05/27/22 injection, auto-injector anaphylaxis, Angioedema #2 ea Accu-Chek Guide Me Glucose Mtr #1 ea 06/11/22 (blood-glucose meter) lancets 30 gauge (BD Ultra-Fine II #100 ea 06/11/22 Lancets) Accu-Chek Guide test strips (blood #300 ea 07/16/22 sugar diagnostic) tiotropium bromide 2.5 2 puff inhalation QAM 30 days #4 07/23/22 mcg/actuation mist for inhalation grams (Spiriva Respimat) sildenafil 25 mg tablet 25 mg PO DAILY PRN sexual activity 08/14/22 #10 tabs folic acid 1 mg tablet 1 mg PO DAILY #90 tabs 09/03/22 albuterol sulfate 90 mcg/actuation 2 puff inhalation Q4-6H PRN 09/06/22 aerosol inhaler shortness of breath or wheezing #1 ea ipratropium 0.5 mg-albuterol 3 mg 3 ml inhalation Q6H PRN wheezing 09/06/22 (2.5 mg base)/3 mL nebulization #90 mL soln levofloxacin 750 mg tablet 750 mg PO DAILY #7 tabs 09/06/22 insulin glargine 100 unit/mL (3 30 unit (0.3 mL) subcut DAILY #30 10/18/22 mL) subcutaneous pen (Lantus mL Solostar U-100 Insulin) Allergies Allergy/AdvReac Type Severity Reaction Status Date / Time cyclobenzaprine Allergy Unknown RASH Verified 12/04/22 15:17 [From FLEXERIL] penicillin V Allergy Unknown anaphylaxis Verified 12/04/22 15:17 pineapple Allergy Unknown Unknown Verified 12/04/22 15:17 FADIA Inhibitors AdvReac Severe Angioedema Verified 12/04/22 15:17 Review of Systems Review of Systems: Constitutional : No Fever, No Chills ENT/Mouth : positive oral swelling, pos Hoarseness, pos Swallowing Difficulty Eyes: No Eye Pain, No Swelling, No Redness Cardiovascular : No Chest Pain, No SOB Respiratory : No Cough, No Sputum, No Wheezing, No Smoke Exposure, No Dyspnea Gastrointestinal : No Nausea, No Vomiting, No Diarrhea, No abdominal Pain Genitourinary : No Dysuria, No Urinary Frequency, No Hematuria Musculoskeletal : No joint pain, No Myalgias, No Joint Swelling Skin : No Skin Lesions, positive rash Neuro : No Weakness, No Numbness, No Headache Psych : No Anxiety/Panic, No Depression All other systems reviewed and are negative [facility] Past Medical History Attestation statement: The following information was validated with the patient. Source: old records reviewed Medical History CAD (coronary artery disease) COPD (chronic obstructive pulmonary disease) Diabetes Diabetic neuropathy Diastolic CHF ETOH abuse Fatty liver Foot ulcer, left Fracture of right tibia and fibula History of colon polyps History of hepatitis C History of TIA (transient ischemic attack) HTN (hypertension) Insulin dependent type 2 diabetes mellitus Metatarsal bone fracture Microalbuminuria Morbid obesity Nicotine dependence, cigarettes, uncomplicated Obesity KD (obstructive sleep apnea) Respiratory failure Restrictive airway disease Seizure disorder Tracheostomy care Transaminitis Surgical History History of cardiac catheterization (~2019) History of colonoscopy (~2018) History of hernia repair History of lumbar spinal fusion History of surgery on lower extremity (~2019) Family History Family History Father CVD (cardiovascular disease) Colon cancer Mother No problems noted. Brother Liver cancer Paternal Aunt Colon cancer Social History Social History Household Members: Unknown / Unable to assess Household Members Other:: Housing: Unknown / Unable to assess Do you presently have visiting nurse or other home services: No Unable to assess alcohol history related to: Unknown Alcohol intake: current Alcohol intake frequency: holidays/special occasions only Alcohol type: beer and hard liquor Patient Tobacco Use Status: Tobacco use Unknown Tobacco use type: Cigarette Cigarette Packs Per Day: 1 Cigarettes Per Day: 20 Smoked in Last 30 Days: Yes Second Hand Smoke Exposure: Yes Use of substances other than those prescribed or required for medical reasons: No Substance Use Type: Marijuana Advance Directives: Yes Advance Directives on File: Yes Advance Directives Date on File: 03/20/22 service: No Current occupational status: disabled Current occupation: right handed Cognitive needs: No Hearing needs: No Vision needs: No Physical Exam ED Vital Signs: Vital Signs - 24 hr 12/04/22 14:55 12/04/22 15:30 12/04/22 15:48 Pulse Rate 84 78 99 Respiratory Rate 18 Blood Pressure 140/88 H 125/65 166/88 H Pulse Oximetry 95 99 Oxygen Delivery Method Room Air BMI result Body Mass Index 34.3 Appearance: Alert. Oriented X3. Mild acute distress. Eyes: Pupils equal, round and reactive to light. ENT: Pharynx severe swelling upper lip moderate lower lip on arrival with swelling noted in L buccal mucosa, L side of neck and left soft palate - voice is hoarse and muffled Neck: Normal inspection. Neck supple. CVS: Normal heart rate and rhythm. Pulses normal. Respiratory: No respiratory distress. Breath sounds normal. Abdomen: Soft and nontender. has large R flank contusion - reportedly fell onto this area a couple of days ago no headstrike Skin: Skin warm and dry. Normal skin color. Normal skin turgor. Extremities: No lower extremity edema. No calf ttp Neuro: Oriented X 3. No motor deficit. No sensory deficit. Course Course Course Narrative: swelling now across soft palate and uvula now under sublingual and submandibular area concern for progression given history at this time given worsening symptoms and hx will intubate in ED prior to him worsening given his history Medications Administered Generic Name Dose Route Start Last Admin Trade Name Freq PRN Reason Stop Dose Admin Propofol 1,000 mg in 100 mls @ 0 mls/hr 12/04/22 15:45 12/04/22 15:57 Diprivan IVCONT 40 mcg/kg/min .Q0M JAMEEL 29.11 mls/hr Titration Protocol Per Protocol Fentanyl 1,000 mcg in 100 mls @ 0 mls/hr 12/04/22 16:00 12/04/22 16:04 Sublimaze/Ns IVCONT 25 mcg/hr .Q0M JAMEEL 2.5 mls/hr Administration Protocol Per Protocol Discontinued Medications Generic Name Dose Route Start Last Admin Trade Name Freq PRN Reason Stop Dose Admin Diphenhydramine HCl 25 mg 12/04/22 14:46 12/04/22 15:12 Diphenhydramine Hcl 50 Mg/Ml Vial IVPUSH 12/04/22 14:47 25 mg ONCE ONE Administration Epinephrine 0.3 mg 12/04/22 14:46 12/04/22 14:55 Epinephrine 1 Mg/Ml Vial IM 12/04/22 14:47 0.3 mg STAT STA Administration Etomidate 20 mg 12/04/22 15:31 12/04/22 15:58 Etomidate 20 Mg/10 Ml Vial IVPUSH 12/04/22 15:32 20 mg ONCE ONE Administration Famotidine 20 mg 12/04/22 14:46 12/04/22 15:12 Famotidine/Pf 20 Mg/2 Ml Vial IVPUSH 12/04/22 14:47 20 mg ONCE ONE Administration Lidocaine HCl 5 ml 12/04/22 15:34 12/04/22 16:01 Lidocaine Hcl 1 % Mpf 5 Ml Vial INFILTRATI 12/04/22 15:35 Not Given ONCE ONE Lidocaine HCl 5 ml 12/04/22 15:35 12/04/22 16:01 Lidocaine Hcl 1 % Mpf 5 Ml Vial INFILTRATI 12/04/22 15:36 Not Given ONCE ONE Methylprednisolone Sodium Succinate 125 mg 12/04/22 14:46 12/04/22 15:12 Methylprednisolone Sod Succ 125 Mg/2 Ml Vial IVPUSH 12/04/22 14:47 125 mg ONCE ONE Administration Succinylcholine Chloride 100 mg 12/04/22 15:31 12/04/22 15:40 Succinylcholine Chloride 200 Mg/10 Ml Vial IVPUSH 12/04/22 15:32 100 mg ONCE ONE Administration Medical Decision Making Medical Decision Making MDM Narrative: 57 yo male with PMH of DM, obesity, KD, CAD, HTN, COPD, restrictive airway disease, thrombocytopenia s/p emergent trach for angioedema back in May 2022 here with worsening angioedema given history I have consulted the ICU attending and plan to admit likely will intubate prior to him getting worse as and EMS note progression since leaving his house. He has worsened and the swelling has spread since leaving the house. He is still on his FADIA-i. He has R flank hematoma noted - reportedly fell onto R flank and abdomen from couch a couple of days ago - I am going to obtain CT head and CT abdomen though H/H stable and low susp for traumatic injury he denied rib pain to me. 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 12/04/22 15:14 12/04/22 15:14 Labs: Lab Results 12/04/22 12/04/22 Range/Units 15:14 15:14 WBC 8.2 (4.8-10.8) X10*3/uL RBC 4.28 L (4.60-5.80) X10*6/uL Hgb 15.7 (14.0-18.0) g/dl Hct 44.8 (42.0-52.0) % MCV 104.7 H (80.0-98.0) fL MCH 36.7 H (27.0-33.0) pg MCHC 35.0 (31.0-36.0) g/dl RDW 14.9 (11.0-16.0) % Plt Count 123 L (160-400) X10*3/uL MPV 9.5 (9.4-12.4) fL Immature Gran % (Auto) 0.4 (0.0-0.4) % Neut % (Auto) 56.5 (45-73) % Lymph % (Auto) 30.8 (20-40) % [place] % (Auto) 8.6 (2-11) % Eos % (Auto) 2.8 (0-4) % Baso % (Auto) 0.9 (0-2) % Lymph # (Auto) 2.5 (1.2-4.9) X10*3/uL [place] # (Auto) 0.7 (0.1-1.2) X10*3/uL Eos # (Auto) 0.2 (0.0-0.4) X10*3/uL Baso # (Auto) 0.1 (0.0-0.2) X10*3/uL Abs Immat Gran (auto) 0.03 (0.00-0.03) X10*3/uL Absolute Neuts (auto) 4.7 (2.0-8.3) x10*3/uL Absolute Nucleated RBC 0.000 (0.0-0.012) X10*3/uL Nucleated RBC % (auto) 0.0 (0.0-0.2) /100WBC PT 10.9 L (11.1-13.3) SEC INR 0.9 (0.9-1.1) Independent Interpretation I performed an independent interpretation of an: Plain X-Ray Radiology Impression Discussion of test interpretation with radiology: I have reviewed the radiologist's reading. Independent Historian Clinical information obtained from an independent historian. History obtained from or confirmed by: Spouse External Record Review External record reviewed: Inpatient record Procedures Intubation Time out performed: Yes sedative: Etomidate Mg Given: 20 paralytic: Succinylcholine Mg Given: 100 Laryngoscope: Regina Assist Device Used: other (glidescope) ET Tube Size: 7.5 ET Tube Uncuffed: Yes Tube Secured Depth (cm): 23 Tube Secured Location: lips Tube Placement Confirmation: visualized tube passing through cords, equal breath sounds bilaterally, no breath sounds over epigastrium and confirmation by capnometry Patient Tolerated Procedure: well Intubation Complications: none Additional Comments: swelling noted around tissues in oral and hypopharynx including epiglottis but cords did not appear swollen Critical Care Time Critical Care Time Critical Care Time: Yes Total Critical Care Time: 60 Attestation: IM epi, medications, intubation, ICU consult I attest to this time spent taking care of the patient Discharge Plan Discharge Clinical Impression: Angioedema Qualifiers: Encounter type: initial encounter Qualified Code(s): T78.3XXA - Angioneurotic edema, initial encounter Patient Disposition: Admitted As Inpatient
[2022-12-04] MEDS: EPINEPHrine 1 MG/ML VIAL 0.3 MG IM (14:55)
[2022-12-04] MEDS: diphenhydrAMINE HCL 50 MG/ML VIAL 25 MG IVPUSH ×3 (15:12→22:10)
[2022-12-04] MEDS: methylPREDNISolone Sod Succ 125 MG/2 ML VIAL IVPUSH (15:12)
[2022-12-04] MEDS: Famotidine/PF 20 MG/2 ML VIAL IVPUSH ×2 (15:12→21:20)
--- NOTE | 2022-12-04 15:20 | PC.NURSE ---
pt biba with angioedema to left side of face and upper lip d/t unknown allergen. ems states that when they found pt he was smoking a cigarette while watching a movie with facial swelling. pt had a patent airway and was able to speak in full, clear sentences w/o difficulty. pt stated that he took 2 doses of zyrtec w/o relief. during ems transport pt was given 25mg of benadryl at 1435 - very minimal relief. vss during ems transport. upon arrival pt has noticeable angioedema - 2, 18gIVs placed w/o difficulty
[2022-12-04 15:21] LABS: MANUAL DIFF FLAG NO
[2022-12-04 15:23] LABS: Basophils Absolute Auto 0.1 X10*3/uL (0.0-0.2); Basophils Percent Auto 0.9 % (0-2); Eosinophils Absolute Auto 0.2 X10*3/uL (0.0-0.4); Eosinophils Percent Auto 2.8 % (0-4); Hematocrit 44.8 % (42.0-52.0); Hemoglobin 15.7 g/dl (14.0-18.0); Imm Gran Abs Auto 0.03 X10*3/uL (0.00-0.03); Imm Gran Pct Auto 0.4 % (0.0-0.4); Lymphocytes Absolute Auto 2.5 X10*3/uL (1.2-4.9); Lymphocytes Percent Auto 30.8 % (20-40); Mean Corpuscular Hemoglobin 36.7 pg (27.0-33.0); Mean Corpuscular Volume 104.7 fL (80.0-98.0); Mean Platelet Volume 9.5 fL (9.4-12.4); Monocytes Absolute Auto 0.7 X10*3/uL (0.1-1.2); Monocytes Percent Auto 8.6 % (2-11); Neutrophils Absolute Auto 4.7 x10*3/uL (2.0-8.3); Neutrophils Percent Auto 56.5 % (45-73); Platelet Count 123 X10*3/uL (160-400); Red Blood Count 4.28 X10*6/uL (4.60-5.80); Red Cell Distribution Width 14.9 % (11.0-16.0); White Blood Count 8.2 X10*3/uL (4.8-10.8)
--- NOTE | 2022-12-04 15:26 | PC.NURSE ---
medications administered per provider order. provider bedside assessing pt's airway. noticeable narrowing of the airway noted upon visualization. pt still able to speak in full, clear sentences w/o difficulty. no stridor noted but pt's is bedside verbalizing that his voice sounds different from how it usually does. pt transferred from ED7 to ED5. ICU provider w/ ED provider discussing plan of action. RT bedside for possible intubation.
[2022-12-04 15:31] LABS: INTERNATIONAL NORM RATIO 0.9 (0.9-1.1); Prothrombin Time 10.9 SEC (11.1-13.3)
--- NOTE | 2022-12-04 15:34 | PC.NURSE ---
ED provider and ICU provider decided that intubation was the best course of action d/t pt's increase in angioedema and narrowing of airway. 1534 - supplies collected for intubation 1539 - 10ml etomidate given IVP 1540 - 5ml succinylcholine given IVP 1540 - provider and RT bedside preparing to intubate 1541 - provider intubated using 7 1/2 tube - 23 at the lip vent settings at 18/500/8peep/50% O2 1548 - propofol initiated via IV at 30mcg/kg/min 1557 - propofol dose increased to 40mcg/kg/min 1602 - xray performed for tube placement - provider at bedside verbally instructed RT to change to 27 at the lip 1607 - fentanyl initiated via IV at 25 mcg/hr 1620 - patient continues to loza the vent - per verbal order of ED provider Kathy Canela - increase fentanyl to 100mcg/hr, pt placed on portable monitor and portable vent This RN, Jeannette Gonzales RN and RT assisted pt to CT at where he was then transferred stat to ICU.
[2022-12-04] MEDS: Succinylcholine Chloride 200 MG/10 ML VIAL 100 MG IVPUSH (15:40)
[2022-12-04] MEDS: propofoL 1,000 MG/100 ML VIAL 21.83 MG IVCONT (15:48)
[2022-12-04] MEDS: Etomidate 20 MG/10 ML VIAL IVPUSH (15:58)
--- NOTE | 2022-12-04 16:01 | P.HPCC_ITS ---
History of Present Illness Date of Service: 12/04/22 Attending physician on admission: Nayeyl Gonzalez Chief Complaint: Angioedema Patient is a 57 Y M with COPD, KD, insulin-dependent DM, CAD s/p stent placements, and alcohol misuse, with prior episode of angioedema 05/15/2022; of note, patient presented to [facility] ED with angioedema, which progressed despite antihistamines, steroids, intubated in OR, which appeared complicated, ultimately patient recieving emergent tracheostomy; hospital course c/b pulmonary edema, respiratory failure, and alcohol withdrawal c/b seizures; ultimately patient was decannulated; patient represents to [facility] ED on 12/04 w/ angioedema; patient and patient bedside report patient in otherwise normal state of health, developed swelling of L face in AM, progressed to include upper lip; of note, patient reports patient's voice appears abnormal; d/t concern of progressing angioedema, decision made to intubate patient in ED; of note, patient's reports the patient has lip swelling and rash with penicillins and cyclobenzaprine; patient is on lisinopril outpatient; moreover, patient's denies family history of angioedema Review of Systems Review of Systems: Yes all other systems are reviewed and are negative Constitutional: Constitutional: Reports as per HPI Eyes: Eyes: Reports no additional eye complaints ENT: Reports as per HPI Cardiovascular: Cardiovascular: Reports no additional cardiovascular complaints Respiratory: Respiratory: Reports no additional respiratory complaints Gastrointestinal: Gastrointestinal: Reports no additional gastrointestinal complaints Genitourinary: Genitourinary: Reports no additional male genitourinary complaints Musculoskeletal: Musculoskeletal: Reports no additional musculoskeletal complaints Neurologic: Reports system reviewed and no additional complaints, except as documented Psychiatric: Psychiatric: Reports no additional psychiatric complaints Endocrine: Endocrine: Reports no additional endocrine complaints [facility] Past Medical History Medical History CAD (coronary artery disease) COPD (chronic obstructive pulmonary disease) Diabetes Diabetic neuropathy Diastolic CHF ETOH abuse Fatty liver Foot ulcer, left Fracture of right tibia and fibula History of colon polyps History of hepatitis C History of TIA (transient ischemic attack) HTN (hypertension) Insulin dependent type 2 diabetes mellitus Metatarsal bone fracture Microalbuminuria Morbid obesity Nicotine dependence, cigarettes, uncomplicated Obesity KD (obstructive sleep apnea) Respiratory failure Restrictive airway disease Seizure disorder Tracheostomy care Transaminitis Functional capacity: independent ambulation Family History Family History Father CVD (cardiovascular disease) Colon cancer Mother No problems noted. Brother Liver cancer Paternal Aunt Colon cancer Surgical History Surgical History History of cardiac catheterization (~2018) History of colonoscopy (~2018) History of hernia repair History of lumbar spinal fusion History of surgery on lower extremity (~2019) Social History Social History Household Members: Unknown / Unable to assess Household Members Other:: Housing: Unknown / Unable to assess Do you presently have visiting nurse or other home services: No Unable to assess alcohol history related to: Unknown Alcohol intake: current Alcohol intake frequency: holidays/special occasions only Alcohol type: beer and hard liquor Patient Tobacco Use Status: Tobacco use Unknown Tobacco use type: Cigarette Cigarette Packs Per Day: 1 Cigarettes Per Day: 20 Smoked in Last 30 Days: Yes Second Hand Smoke Exposure: Yes Use of substances other than those prescribed or required for medical reasons: No Substance Use Type: Marijuana Advance Directives: Yes Advance Directives on File: Yes Advance Directives Date on File: 03/20/22 service: No Current occupational status: disabled Current occupation: right handed Cognitive needs: No Hearing needs: No Vision needs: No Meds Allergies Allergy/AdvReac Type Severity Reaction Status Date / Time cyclobenzaprine Allergy Unknown RASH Verified 12/04/22 15:17 [From FLEXERIL] penicillin V Allergy Unknown anaphylaxis Verified 12/04/22 15:17 pineapple Allergy Unknown Unknown Verified 12/04/22 15:17 FADIA Inhibitors AdvReac Severe Angioedema Verified 12/04/22 15:17 Active Medications: Current Medications Enoxaparin Sodium (Enoxaparin Sodium 40 Mg/0.4 Ml Syringe) 40 mg SUBCUT Q24H JAMEEL Famotidine (Famotidine/Pf 20 Mg/2 Ml Vial) 20 mg IVPUSH BID JAMEEL Sodium Chloride (Ns) 100 mls @ 100 mls/hr IV ONCE ONE Stop: 12/04/22 16:30 Propofol (Diprivan) 1,000 mg in 100 mls @ 0 mls/hr IVCONT .Q0M JAMEEL; Protocol Last Titration: 12/04/22 15:57 Dose: 40 mcg/kg/min, 29.11 mls/hr Fentanyl (Sublimaze/Ns) 1,000 mcg in 100 mls @ 0 mls/hr IVCONT .Q0M JAMEEL; Protocol Propofol (Diprivan) 1,000 mg in 100 mls @ 0 mls/hr IVCONT .Q0M JAMEEL; Protocol Dexmedetomidine HCl (Precedex) 400 mcg in 100 mls @ 0 mls/hr IVCONT .Q0M JAMEEL; Protocol Insulin Human Lispro (Insulin Lispro 100 Unit/Ml 3 Ml Vial) 0 unit SUBCUT QIDACHS JAMEEL; Protocol Naloxone HCl (Naloxone Hcl 0.4 Mg/Ml Vial) 0.2 mg IVPUSH Q2M PRN PRN Reason: Excessive sedation or RR < 8 Home Medications Medication Instructions Recorded Confirmed Last Taken Type aspirin 81 mg tablet,delayed 81 mg PO DAILY 03/17/22 12/04/22 12/03/22 History release duloxetine 30 mg capsule,delayed 1 cap PO BID 03/17/22 12/04/22 12/03/22 History release multivitamin 1 tab PO DAILY 03/17/22 12/04/22 12/03/22 History oxycodone 5 mg tablet 1 tab PO DAILY PRN Moderate Pain 03/17/22 12/04/22 12/03/22 History (Scale Score 5-6) pyridoxine (vitamin B6) 50 mg 1 tab PO DAILY 03/17/22 12/04/22 12/03/22 History tablet ipratropium 0.5 mg-albuterol 3 mg 3 ml inhalation Q4-6H PRN Wheezing 08/14/22 12/04/22 12/03/22 History (2.5 mg base)/3 mL nebulization soln carbamazepine 200 mg tablet 200 mg PO BEDTIME 12/04/22 12/04/22 12/03/22 History pregabalin 200 mg capsule 200 mg PO TID 12/04/22 12/04/22 12/03/22 History Physical Exam Vital Signs: Vital Signs: Last Vital Signs Pulse 91 12/04/22 15:57 Resp 18 12/04/22 15:57 BP 155/89 H 12/04/22 15:57 Pulse Ox 99 12/04/22 15:57 O2 Del Method Room Air 12/04/22 15:30 BMI result Body Mass Index 34.3 Const: General: cooperative and no acute distress Nutritional Appearance: average body habitus Orientation/consciousness: patient oriented x3 L imitations: no limitations HEENT: Other: appreciable angioedema bilateral upper lip, glossomegaly, and posterior orophar yngeal edema, erthyema Teeth and gingiva: poor dentition Throat: Yes uvula midline Eyes: General: appearance normal, both eyes and all related structures Neck: Neck: Yes normal visual inspection Chest: Chest palpation & inspection: normal inspection of the chest Resp: Other: of note, no appreciable wheezing, stridor Effort & Inspection: able to speak in complete sentences, no grunting, not labored and no nasal flaring Cardio: Rate: regular rate Rhythm: regular rhythm : General: Yes deferred Skin: General skin exam: no rashes or lesions noted Neuro: Other: no appreciable neurological deficits General: patient oriented x3 Extrem: General: Yes normal to inspection and Yes capillary refill normal Psych: Appearance: grossly normal Results Labs 12/04/22 15:14 12/04/22 15:14 Labs: Laboratory Results - last 24 hr 12/04/22 12/04/22 15:14 15:14 MCV 104.7 H MCH 36.7 H MCHC 35.0 RDW 14.9 Plt Count 123 L MPV 9.5 Immature Gran % (Auto) 0.4 Neut % (Auto) 56.5 Lymph % (Auto) 30.8 [place] % (Auto) 8.6 Eos % (Auto) 2.8 Baso % (Auto) 0.9 Lymph # (Auto) 2.5 [place] # (Auto) 0.7 Eos # (Auto) 0.2 Baso # (Auto) 0.1 Abs Immat Gran (auto) 0.03 Absolute Neuts (auto) 4.7 Absolute Nucleated RBC 0.000 Nucleated RBC % (auto) 0.0 PT 10.9 L INR 0.9 Assessment and Plan (1) Angioedema: Qualifiers: Encounter type: initial encounter Qualified Code(s): T78.3XXA - Angioneurotic edema, initial encounter Status: Acute (2) COPD (chronic obstructive pulmonary disease): Status: Acute (3) Insulin dependent type 2 diabetes mellitus: Status: Acute (4) KD (obstructive sleep apnea): Status: Acute Plan Patient is a 57 Y M with metabolic syndrome, COPD, KD, prior angioedema, p/t with angioedema on 12/04, intubated N: sedation: propofol gtt, cross-titrate to dexmedetomidine gtt, with close monitoring heart rate; of note, patient with prior alcohol withdrawal seizure, to monitor closely CV: hemodynamically stable, no acute issues R: angioedema, semi-elective intubation; unclear etiology of angioedema, likely drug-induced vs mast-cell mediated; given FFP, scheduled antihistamines, steroids, duo-nebs; avoiding lisinopril; VC-AC, to wean to PS as tolerated GI: OG tube; to consider tube feeds in coming days : function: at baseline creatinine; electrolytes: mild hyperkalemia, to follow-up EKG; volume: maintain euvolemia H: thrombocytopenia; to monitor closely with aspirin, DVT prophylaxis ID: no acute issues Time Spent With Patient Time: Total time managing care of this patient today 120 minutes.
[2022-12-04] MEDS: fentaNYL citrate/NS 1,000 MCG/100 ML PLAST..BAG 2.5 MCG IVCONT (16:04)
--- NOTE | 2022-12-04 16:15 | PC.NURSE ---
report given to RN on ICU. pt going to CT and then being transferred upstairs.
[2022-12-04] MEDS: iohexoL 350 MG/ML 100 ML INFUS..BTL IV (16:43)
[2022-12-04 16:54] LABS: Ethanol 295 mg/dL
--- NOTE | 2022-12-04 16:57 | PC.NURSE ---
pt arrives to unit.
[2022-12-04 17:02] LABS: Alanine Aminotransferase 49 U/L (0-40); Albumin Level 3.5 g/dL (3.5-5.0); Alkaline Phosphatase 148 U/L (39-117); Anion Gap 20 (12-20); Aspartate Amino Transferase 123 U/L (5-37); Bilirubin Direct 0.4 mg/dL (0.0-0.5); Bilirubin Total 0.8 mg/dL (0.0-1.0); Blood Urea Nitrogen 14 mg/dL (9-16); Carbon Dioxide 25 mmol/L (22-29); Chloride 98 mmol/L (96-108); Creatinine Clr Calc Pharmacy 150.7; Estimated Glomerular Filt Rate > 60; Glucose Random 69 mg/dL (60-115); Magnesium 1.8 mg/dL (1.6-2.6); Potassium 5.1 mmol/L (3.3-5.1); Sodium 138 mmol/L (135-145); Total Protein 7.3 g/dL (6.5-8.0)
--- NOTE | 2022-12-04 17:07 | PHA.MEDREC ---
Pharmacy Consult ? Medication Reconciliation Pharmacy has completed the medication reconciliation. Patient's confirmed medications. had pictures of rx bottles. Reports carbamezapine 200 is at bedtime only. Reports pregabalin is 200 mg TID instead of 300 mg BID. Babs Kaminski, PharmD
--- NOTE | 2022-12-04 17:09 | PC.NURSE ---
pt biba with angioedema to left side of face and upper lip. ems states that when they found pt he was smoking a cigarette while watching a movie. pt was able to speak in full, clear sentences w/o difficulty.
[2022-12-04] MEDS: propofoL 1,000 MG/100 ML VIAL 36.39 MG IVCONT ×3 (17:28→22:13)
[2022-12-04 17:29] LABS: Glucose, Whole Blood 92 mg/dL (60-115)
[2022-12-04] MEDS: Enoxaparin Sodium 40 MG/0.4 ML SYRINGE SUBCUT (17:49)
[2022-12-04] MEDS: Lactated Ringers 500 ML 100 ML IV (17:50)
[2022-12-04 18:25] LABS: Alanine Aminotransferase 47 U/L (0-40); Albumin Level 3.4 g/dL (3.5-5.0); Alkaline Phosphatase 144 U/L (39-117); Anion Gap 23 (12-20); Aspartate Amino Transferase 117 U/L (5-37); Blood Urea Nitrogen 14 mg/dL (9-16); Calcium 8.6 mg/dL (8.4-10.2); Carbon Dioxide 18 mmol/L (22-29); Chloride 100 mmol/L (96-108); Creatinine Clr Calc Pharmacy 157.2; Estimated Glomerular Filt Rate > 60; Glucose Random 90 mg/dL (60-115); Potassium 4.9 mmol/L (3.3-5.1); Sodium 136 mmol/L (135-145); Total Protein 6.9 g/dL (6.5-8.0)
[2022-12-04] MEDS: Albuterol/Iprat 2.5/0.5MG 3 ML AMPUL.NEB INHALE (20:38)
[2022-12-04 20:39] LABS: ABG Base Excess -6.5 mmol/L; ABG HCO3 17 mmol/L (22-26); ABG pCO2 29 mmHg (32-45); ABG pH 7.36 (7.35-7.45); ABG pO2 91 mmHg (83-108)
[2022-12-04] MEDS: Pregabalin 200 MG CAPSULE PO (21:21)
[2022-12-04] MEDS: DULoxetine HCl 30 MG CAPSULE.DR PO (21:21)
[2022-12-04] MEDS: carBAMazepine 200 MG TABLET PO (21:21)
[2022-12-04] MEDS: Atorvastatin Calcium 40 MG TABLET PO (21:21)
[2022-12-04] MEDS: fentaNYL citrate/PF 100 MCG/2 ML VIAL 50 MCG IVPUSH (21:38)
[2022-12-04] MEDS: methylPREDNISolone Sod Succ 125 MG/2 ML VIAL 60 MG IVPUSH (22:10)
[2022-12-04 22:53] LABS: ABG Refer to POC result
[2022-12-04 23:35] LABS: Glucose, Whole Blood 109 mg/dL (60-115)
[2022-12-05] VITALS (31 sets, daily range): BP systolic 98–150; BP diastolic 60–90; PULSE 62–88; RESP 12–25; TEMP 34.8–38; O2SAT 91–100; BMI 35.9; BMI 36.8
--- NOTE | 2022-12-05 | ECG_ITS ---
Test Reason : hyperkalemia Blood Pressure : / mmHG Vent. Rate : 078 BPM Atrial Rate : 078 BPM P-R Int : 194 ms QRS Dur : 104 ms QT Int : 390 ms P-R-T Axes : 062 068 061 degrees QTc Int : 444 ms Normal sinus rhythm Normal ECG When compared with ECG of 15-MAY-2022 14:32, No significant change was found Referred By: Nayely Gonzalez Electronically Signed By:MARTÍN MARTINEZ
[2022-12-05] MEDS: dexmedeTOMIDidine HCL/NS 400 MCG/100 ML INFUS..BTL 30.33 MCG IVCONT (00:04)
[2022-12-05] MEDS: propofoL 1,000 MG/100 ML VIAL 36.39 MG IVCONT ×9 (00:30→23:03)
[2022-12-05] MEDS: Sodium Bicarbonate 8.4% 50 MEQ/50 ML SYRINGE 100 MEQ IVPUSH (01:32)
[2022-12-05] MEDS: dexmedeTOMIDidine HCL/NS 400 MCG/100 ML INFUS..BTL 24.26 MCG IVCONT (03:06)
[2022-12-05] MEDS: methylPREDNISolone Sod Succ 125 MG/2 ML VIAL 60 MG IVPUSH ×4 (03:07→21:03)
[2022-12-05] MEDS: propofoL 1,000 MG/100 ML VIAL 29.11 MG IVCONT ×2 (03:07→05:00)
[2022-12-05] MEDS: dexmedeTOMIDidine HCL/NS 400 MCG/100 ML INFUS..BTL 36.39 MCG IVCONT (05:00)
[2022-12-05 05:44] LABS: VBG Base Excess -5.1 mmol/L; VBG HCO3 18 mmol/L (22-26); VBG pCO2 30 mmHg; VBG pH 7.38 (7.32-7.43); VBG pO2 81 mmHg
[2022-12-05] MEDS: Rocuronium Bromide 50 MG/5 ML VIAL 30 MG IVPUSH (06:00)
[2022-12-05 06:15] LABS: Glucose, Whole Blood 170 mg/dL (60-115)
[2022-12-05] MEDS: Insulin Lispro 100 UNIT/ML 3 ML VIAL SUBCUT ×5 (06:38→23:30)
[2022-12-05] MEDS: diphenhydrAMINE HCL 50 MG/ML VIAL 25 MG IVPUSH ×3 (06:38→21:03)
[2022-12-05 06:39] LABS: Alanine Aminotransferase 48 U/L (0-40); Albumin Level 3.4 g/dL (3.5-5.0); Alkaline Phosphatase 142 U/L (39-117); Anion Gap 25 (12-20); Aspartate Amino Transferase 107 U/L (5-37); Bilirubin Total 1.1 mg/dL (0.0-1.0); Blood Urea Nitrogen 14 mg/dL (9-16); Calcium 8.6 mg/dL (8.4-10.2); Carbon Dioxide 19 mmol/L (22-29); Chloride 97 mmol/L (96-108); Creatinine Clr Calc Pharmacy 140.7; Estimated Glomerular Filt Rate > 60; Glucose Random 145 mg/dL (60-115); Potassium 5.7 mmol/L (3.3-5.1); Sodium 135 mmol/L (135-145)
[2022-12-05 06:42] LABS: Basophils Percent Auto 0.2 % (0-2); Hematocrit 42.8 % (42.0-52.0); Hemoglobin 14.7 g/dl (14.0-18.0); Imm Gran Abs Auto 0.02 X10*3/uL (0.00-0.03); Imm Gran Pct Auto 0.5 % (0.0-0.4); Lymphocytes Absolute Auto 0.5 X10*3/uL (1.2-4.9); Lymphocytes Percent Auto 11.7 % (20-40); MANUAL DIFF FLAG NO; Mean Corpuscular HGB Conc 34.3 g/dl (31.0-36.0); Mean Corpuscular Hemoglobin 36.4 pg (27.0-33.0); Mean Corpuscular Volume 105.9 fL (80.0-98.0); Mean Platelet Volume 10.1 fL (9.4-12.4); Monocytes Absolute Auto 0.1 X10*3/uL (0.1-1.2); Monocytes Percent Auto 3.4 % (2-11); Neutrophils Absolute Auto 3.5 x10*3/uL (2.0-8.3); Neutrophils Percent Auto 84.2 % (45-73); Red Blood Count 4.04 X10*6/uL (4.60-5.80); Red Cell Distribution Width 14.6 % (11.0-16.0); White Blood Count 4.1 X10*3/uL (4.8-10.8)
[2022-12-05 07:23] LABS: Platelet Count 89 X10*3/uL (160-400)
[2022-12-05] MEDS: fentaNYL citrate/PF 100 MCG/2 ML VIAL 50 MCG IVPUSH (07:28)
[2022-12-05] MEDS: Albuterol/Iprat 2.5/0.5MG 3 ML AMPUL.NEB INHALE ×4 (07:40→20:22)
[2022-12-05 08:07] LABS: Venous Blood Gas Refer to POC result
--- NOTE | 2022-12-05 08:16 | PM.CCPN ---
Subjective Subjective Date of Service: 12/05/22 Interval History: interval improvement of angioedema of lips; intermittent agitation on ventilator in PM Critical Care Time (minutes): 90 Physical Exam Vital Signs: Vital Signs: Last Vital Signs Temp 99.0 F 12/05/22 06:00 Pulse 65 12/05/22 07:45 Resp 16 12/05/22 07:45 BP 133/87 12/05/22 07:16 Pulse Ox 100 12/05/22 07:16 O2 Del Method Mechanical Ventil ation 12/05/22 07:00 FiO2 40 12/05/22 07:45 BMI result Body Mass Index 35.9 Const: Other: intubated, sedated General: no acute distress Nutritional Appearance: average body habitus HEENT: Other: interval improvement angioedema upper and lower lips; persistent L tongue angioedema; minimal gingival angioedema Eyes: General: appearance normal, both eyes and all related structures Pupils: Equal, round and reactive pupils present Neck: Neck: Yes normal visual inspection and Yes supple Chest: Chest palpation & inspection: normal inspection of the chest Resp: Effort & Inspection: normal respiratory effort Auscultation: clear to auscultation bilaterally Cardio: Rate: regular rate Rhythm: regular rhythm : General: Yes deferred Skin: Other: appreciable abrasions on all extremities Neuro: Other: sedated; grimaces; moves all extremities spontaneously; Cranial nerves: Yes Equal, round and reactive pupils present Extrem: General: Yes normal to inspection Objective Data Labs 12/05/22 05:00 12/05/22 05:00 Labs: Laboratory Results - last 24 hr 12/04/22 12/04/22 12/04/22 15:14 17:22 17:48 WBC 8.2 RBC 4.28 L Hgb 15.7 Hct 44.8 MCV 104.7 H MCH 36.7 H MCHC 35.0 RDW 14.9 Plt Count 123 L MPV 9.5 Immature Gran % (Auto) 0.4 Neut % (Auto) 56.5 Lymph % (Auto) 30.8 [place] % (Auto) 8.6 Eos % (Auto) 2.8 Baso % (Auto) 0.9 Lymph # (Auto) 2.5 [place] # (Auto) 0.7 Eos # (Auto) 0.2 Baso # (Auto) 0.1 Abs Immat Gran (auto) 0.03 Absolute Neuts (auto) 4.7 Absolute Nucleated RBC 0.000 Nucleated RBC % (auto) 0.0 PT 10.9 L INR 0.9 O2 Saturation ABG pH at Pt Temp ABG pCO2 at Pt Temp ABG pO2 at Pt Temp ABG HCO3 ABG Base Excess (Actual) VBG pH VBG pCO2 VBG pO2 VBG HCO3 VBG O2 Saturation VBG Base Excess Sodium 138 Potassium 5.1 D Chloride 98 Carbon Dioxide 25 Anion Gap 20 BUN 14 Creatinine 0.73 Estim Creat Clear Calc 150.7 Estimated GFR > 60 POC Glucose 92 Random Glucose 69 Calcium 9.0 D Magnesium 1.8 Total Bilirubin 0.8 Direct Bilirubin 0.4 AST 123 H ALT 49 H Alkaline Phosphatase 148 H Total Protein 7.3 Albumin 3.5 Ethyl Alcohol 295 Blood Type A Negative Antibody Screen NEGATIVE 12/04/22 12/04/22 12/04/22 17:49 20:35 23:27 WBC RBC Hgb Hct MCV MCH MCHC RDW Plt Count MPV Immature Gran % (Auto) Neut % (Auto) Lymph % (Auto) [place] % (Auto) Eos % (Auto) Baso % (Auto) Lymph # (Auto) [place] # (Auto) Eos # (Auto) Baso # (Auto) Abs Immat Gran (auto) Absolute Neuts (auto) Absolute Nucleated RBC Nucleated RBC % (auto) PT INR O2 Saturation 96.0 ABG pH at Pt Temp 7.36 ABG pCO2 at Pt Temp 29 L ABG pO2 at Pt Temp 91 ABG HCO3 17 L ABG Base Excess (Actual) -6.5 VBG pH VBG pCO2 VBG pO2 VBG HCO3 VBG O2 Saturation VBG Base Excess Sodium 136 Potassium 4.9 Chloride 100 Carbon Dioxide 18 L Anion Gap 23 H BUN 14 Creatinine 0.70 Estim Creat Clear Calc 157.2 Estimated GFR > 60 POC Glucose 109 Random Glucose 90 Calcium 8.6 Magnesium Total Bilirubin 1.0 Direct Bilirubin AST 117 H ALT 47 H Alkaline Phosphatase 144 H Total Protein 6.9 Albumin 3.4 L Ethyl Alcohol Blood Type Antibody Screen 12/05/22 12/05/22 12/05/22 05:00 05:02 06:11 WBC 4.1 L RBC 4.04 L Hgb 14.7 Hct 42.8 MCV 105.9 H MCH 36.4 H MCHC 34.3 RDW 14.6 Plt Count 89 L D MPV 10.1 Immature Gran % (Auto) 0.5 H Neut % (Auto) 84.2 H Lymph % (Auto) 11.7 L [place] % (Auto) 3.4 Eos % (Auto) 0.0 Baso % (Auto) 0.2 Lymph # (Auto) 0.5 L [place] # (Auto) 0.1 Eos # (Auto) 0.0 Baso # (Auto) 0.0 Abs Immat Gran (auto) 0.02 Absolute Neuts (auto) 3.5 Absolute Nucleated RBC 0.000 Nucleated RBC % (auto) 0.0 PT INR O2 Saturation ABG pH at Pt Temp ABG pCO2 at Pt Temp ABG pO2 at Pt Temp ABG HCO3 ABG Base Excess (Actual) VBG pH 7.38 VBG pCO2 30 VBG pO2 81 VBG HCO3 18 L VBG O2 Saturation 95.0 VBG Base Excess -5.1 Sodium 135 Potassium 5.7 H Chloride 97 Carbon Dioxide 19 L Anion Gap 25 H BUN 14 Creatinine 0.80 Estim Creat Clear Calc 140.7 Estimated GFR > 60 POC Glucose 170 H Random Glucose 145 H Calcium 8.6 Magnesium Total Bilirubin 1.1 H Direct Bilirubin AST 107 H ALT 48 H Alkaline Phosphatase 142 H Total Protein 7.0 Albumin 3.4 L Ethyl Alcohol Blood Type Antibody Screen Progress Note: A&P Assessment and plan (1) Angioedema: Status: Acute (2) Thrombocytopenia: Status: Acute (3) Insulin dependent type 2 diabetes mellitus: Status: Acute (4) COPD (chronic obstructive pulmonary disease): Status: Acute (5) KD (obstructive sleep apnea): Status: Acute (6) Hyperkalemia: Status: Acute Plan Patient is a 57 Y M with COPD, KD, alcohol misuse, prior angioedema, p/w angioedema, intubated N: intubated, sedated with propofol, dexmedetomidine gtt; to maintain to tolerate ventilator; alcohol misuse, last drink prior to admission; to continue to monitor for signs, symptoms of withdrawal CV: hemodynamically stable; hypertension, on home metoprolol; holding lisinopril d/t c/f drug-induced angioedema R: intubated; scoped today, no significant posterior oropharyngeal angioedema; however, persistent L tongue angioedema; to reassess tomorrow AM for clinical improvement, possible extubation; to maintain on PS 5 5 30% GI: no acute issues; patient made aware of c/f cirrhosis on imaging : function: at baseline; electrolytes: hyperkalemia; EKG without peaked T waves; given albuterol, IVF, furosemide this AM; to repeat BMP at 12 PM; continue to monitor closely; volume: goal euvolemia H: thrombocytopenia, on home aspirin, DVT prophylaxis enoxaparin; continue to monitor closely ID: no acute issues MSK: frequent falls; patient made aware of flank hematoma, possible nasal bone fracture Quality Stroke Does the patient have a stroke diagnosis?: No VTE Prior VTE?: No VTE Risk Level:: Medical - moderate - high VTE Device Contraindication: N/A - Device Ordered VTE Drug Contraindication: N/A - Med Ordered
[2022-12-05] MEDS: dexmedeTOMIDidine HCL/NS 400 MCG/100 ML INFUS..BTL 45.49 MCG IVCONT ×8 (08:19→23:03)
[2022-12-05] MEDS: Insulin Glargine,Hum.rec.anlog 100 UNIT/ML 10 ML VIAL 30 UNIT SUBCUT (08:20)
[2022-12-05] MEDS: Famotidine/PF 20 MG/2 ML VIAL IVPUSH ×2 (08:21→20:13)
[2022-12-05] MEDS: Albuterol Sulfate 7.5 MG, Albuterol Sulfate (0.083%) 2.5 MG 10 MG INHALE (09:00)
[2022-12-05] MEDS: Lactated Ringers 1,000 ML 999 ML IV (09:14)
[2022-12-05] MEDS: Furosemide 20 MG/2 ML VIAL 40 MG IVPUSH (09:14)
[2022-12-05] MEDS: Metoprolol Succinate ER 100 MG TAB.ER.24H PO (09:17)
[2022-12-05] MEDS: Aspirin 81 MG TAB.CHEW PO (09:17)
[2022-12-05 09:52] LABS: Glucose, Whole Blood 159 mg/dL (60-115)
[2022-12-05] MEDS: DULoxetine HCl 30 MG CAPSULE.DR PO ×2 (10:33→20:13)
[2022-12-05] MEDS: Pregabalin 200 MG CAPSULE PO ×3 (10:33→20:13)
[2022-12-05] MEDS: Folic Acid 1 MG TABLET PO (10:33)
[2022-12-05 11:48] LABS: Glucose, Whole Blood 213 mg/dL (60-115)
[2022-12-05 12:45] LABS: Anion Gap 26 (12-20); Blood Urea Nitrogen 17 mg/dL (9-16); Calcium 8.3 mg/dL (8.4-10.2); Carbon Dioxide 19 mmol/L (22-29); Chloride 95 mmol/L (96-108); Creatinine Clr Calc Pharmacy 109.3; Estimated Glomerular Filt Rate > 60; Glucose Random 231 mg/dL (60-115); Potassium 4.7 mmol/L (3.3-5.1); Sodium 135 mmol/L (135-145)
[2022-12-05] MEDS: Enoxaparin Sodium 40 MG/0.4 ML SYRINGE SUBCUT (15:00)
[2022-12-05] MEDS: Acetaminophen 325 MG TABLET 650 MG PO (17:09)
[2022-12-05 18:03] LABS: Glucose, Whole Blood 335 mg/dL (60-115)
[2022-12-05 18:31] LABS: Anion Gap 18 (12-20); Blood Urea Nitrogen 18 mg/dL (9-16); Calcium 8.5 mg/dL (8.4-10.2); Carbon Dioxide 26 mmol/L (22-29); Chloride 94 mmol/L (96-108); Creatinine Clr Calc Pharmacy 103.6; Estimated Glomerular Filt Rate > 60; Glucose Random 306 mg/dL (60-115); Potassium 4.8 mmol/L (3.3-5.1); Sodium 133 mmol/L (135-145)
[2022-12-05] MEDS: Atorvastatin Calcium 40 MG TABLET PO (20:13)
[2022-12-05] MEDS: carBAMazepine 200 MG TABLET PO (20:13)
[2022-12-05 23:17] LABS: Glucose, Whole Blood 272 mg/dL (60-115)
[2022-12-06] VITALS (30 sets, daily range): BP systolic 107–155; BP diastolic 58–98; PULSE 64–96; RESP 15–22; TEMP 34.8–38; O2SAT 32–94; BMI 36.4
[2022-12-06] MEDS: dexmedeTOMIDidine HCL/NS 400 MCG/100 ML INFUS..BTL 45.49 MCG IVCONT ×5 (01:17→10:05)
[2022-12-06 01:23] LABS: Alanine Aminotransferase 38 U/L (0-40); Albumin Level 3.5 g/dL (3.5-5.0); Alkaline Phosphatase 139 U/L (39-117); Anion Gap 16 (12-20); Aspartate Amino Transferase 60 U/L (5-37); Blood Urea Nitrogen 18 mg/dL (9-16); Calcium 8.6 mg/dL (8.4-10.2); Carbon Dioxide 27 mmol/L (22-29); Chloride 95 mmol/L (96-108); Creatinine Clr Calc Pharmacy 100.8; Estimated Glomerular Filt Rate > 60; Glucose Random 256 mg/dL (60-115); Potassium 4.8 mmol/L (3.3-5.1); Sodium 133 mmol/L (135-145); Total Protein 7.2 g/dL (6.5-8.0)
[2022-12-06] MEDS: propofoL 1,000 MG/100 ML VIAL 36.39 MG IVCONT ×4 (01:39→08:35)
[2022-12-06] MEDS: methylPREDNISolone Sod Succ 125 MG/2 ML VIAL 60 MG IVPUSH ×4 (03:14→22:13)
[2022-12-06 05:11] LABS: VBG Base Excess 7.9 mmol/L; VBG HCO3 30 mmol/L (22-26); VBG pCO2 33 mmHg; VBG pH 7.55 (7.32-7.43); VBG pO2 62 mmHg
[2022-12-06 05:17] LABS: Venous Blood Gas Refer to POC result
[2022-12-06 05:24] LABS: MANUAL DIFF FLAG NO
[2022-12-06 05:27] LABS: Hematocrit 44.3 % (42.0-52.0); Hemoglobin 15.6 g/dl (14.0-18.0); Imm Gran Abs Auto 0.02 X10*3/uL (0.00-0.03); Imm Gran Pct Auto 0.2 % (0.0-0.4); Lymphocytes Absolute Auto 0.4 X10*3/uL (1.2-4.9); Lymphocytes Percent Auto 5.1 % (20-40); Mean Corpuscular HGB Conc 35.2 g/dl (31.0-36.0); Mean Corpuscular Hemoglobin 36.4 pg (27.0-33.0); Mean Corpuscular Volume 103.5 fL (80.0-98.0); Mean Platelet Volume 9.6 fL (9.4-12.4); Monocytes Absolute Auto 0.6 X10*3/uL (0.1-1.2); Monocytes Percent Auto 6.9 % (2-11); Neutrophils Percent Auto 87.8 % (45-73); Red Blood Count 4.28 X10*6/uL (4.60-5.80); Red Cell Distribution Width 14.8 % (11.0-16.0)
[2022-12-06 05:28] LABS: Platelet Count 77 X10*3/uL (160-400)
[2022-12-06] MEDS: diphenhydrAMINE HCL 50 MG/ML VIAL 25 MG IVPUSH ×3 (05:44→22:13)
[2022-12-06 05:46] LABS: Alanine Aminotransferase 37 U/L (0-40); Albumin Level 3.4 g/dL (3.5-5.0); Alkaline Phosphatase 134 U/L (39-117); Anion Gap 17 (12-20); Aspartate Amino Transferase 57 U/L (5-37); Bilirubin Total 1.4 mg/dL (0.0-1.0); Blood Urea Nitrogen 17 mg/dL (9-16); Calcium 8.6 mg/dL (8.4-10.2); Carbon Dioxide 26 mmol/L (22-29); Chloride 94 mmol/L (96-108); Estimated Glomerular Filt Rate > 60; Glucose Random 211 mg/dL (60-115); Potassium 4.6 mmol/L (3.3-5.1); Sodium 132 mmol/L (135-145); Total Protein 7.2 g/dL (6.5-8.0)
[2022-12-06] MEDS: Insulin Lispro 100 UNIT/ML 3 ML VIAL SUBCUT ×2 (05:51→12:29)
[2022-12-06] MEDS: Albuterol/Iprat 2.5/0.5MG 3 ML AMPUL.NEB INHALE ×4 (07:48→20:16)
[2022-12-06] MEDS: Insulin Glargine,Hum.rec.anlog 100 UNIT/ML 10 ML VIAL 30 UNIT SUBCUT (08:00)
[2022-12-06] MEDS: Famotidine/PF 20 MG/2 ML VIAL IVPUSH ×2 (08:00→21:00)
[2022-12-06] MEDS: Metoprolol Succinate ER 100 MG TAB.ER.24H PO (08:01)
[2022-12-06] MEDS: Pregabalin 200 MG CAPSULE PO ×3 (08:01→20:59)
[2022-12-06] MEDS: DULoxetine HCl 30 MG CAPSULE.DR PO ×2 (08:01→20:59)
[2022-12-06] MEDS: Folic Acid 1 MG TABLET PO (08:01)
[2022-12-06] MEDS: Aspirin 81 MG TAB.CHEW PO (08:01)
--- NOTE | 2022-12-06 11:16 | MHC.CLN ---
F/U PT REMAINS INTUABTED DISCUSSED AT ROUNDS WITH MD PLAN FOR EXTUBATION TODAY IF DIET TO ADVANCE; RECOMMEND 2000DM 2GM NA DIET IF PT REMAINS INTUBATED; CONSULT RD FOR TF RECOMMENDATIONS RD CAN BE REACHED VIA TIGER [facility]CT DURING WEEKEND HOURS FOLLOWING WITH TEAM
[2022-12-06] MEDS: Racepinephrine HCL 0.5 ML VIAL.NEB INHALE (11:37)
--- NOTE | 2022-12-06 11:37 | PC.NURSE ---
Assumed care at 0700. Patient remains mechanically vented, tolerating PSV settings with propofol gtt and precedex gtt for sedation. Propofol gtt titrated per EMAR, paused at 1112. Patient opening eyes spontaneously, following commands, mouthing words. MD and RT at bedside-ETT cuff deflated by RT to confirm presence of cuff leak. Patient extubated at 1117 by RT per MD order. Patient placed on 4L NC, O2 sats maintaining >90%. Patient AOx4, denies pain, SOB, and N/V. Precedex gtt titrated per EMAR. Prevalon system in place, Q2 repositioning and oral care performed. No further concerns at this time, plan of care ongoing.
[2022-12-06 12:10] LABS: Glucose, Whole Blood 186 mg/dL (60-115)
--- NOTE | 2022-12-06 12:28 | P.PNCC_ITS ---
Subjective Subjective Date of Service: 12/06/22 Interval History: no significant overnight events; interval improvement L tongue angioedema Critical Care Time (minutes): 90 Physical Exam 2 Vital Signs: Vital Signs: Last Vital Signs Temp 99.5 F 12/06/22 12:00 Pulse 78 12/06/22 12:00 Resp 15 12/06/22 12:00 BP 145/91 H 12/06/22 12:00 Pulse Ox 89 L 12/06/22 12:00 O2 Del Method Nasal Cannula 12/06/22 12:00 O2 Flow Rate 4 12/06/22 12:00 FiO2 40 12/06/22 11:00 BMI result Body Mass Index 36.4 Const: General: cooperative, healthy appearing, comfortable and no acute distress Nutritional Appearance: well nourished Orientation/consciousness: patient oriented x3 HEENT: Other: no eye, lip swelling; mild L tongue swelling; no gingival, oropharyngeal swelling Head: Yes normal to inspection, Yes normocephalic and Yes atraumatic Eyes: General: appearance normal, both eyes and all related structures P upils: Equal, round and reactive pupils present Neck: Neck: Yes normal visual inspection and Yes supple Chest: Chest palpation & inspection: normal inspection of the chest Resp: Effort & Inspection: normal respiratory effort Cardio: Rate: regular rate Rhythm: regular rhythm GI: Inspection: Yes normal to inspection and No distended Palpation (GI): S oft to palpation, not firm, nontender, no guarding and not rigid Skin: Other: appreciable abrasions in all 4 extremities Neuro: General: patient oriented x3 Cranial nerves: Yes Equal, round and reactive pupils present Extrem: General: Yes normal to inspection Psych: Other: some tremulousness and reported anxiety Objective Data Labs 12/06/22 05:06 12/06/22 05:06 Labs: Laboratory Results - last 24 hr 12/05/22 12/05/22 12/05/22 12:22 17:58 17:59 WBC RBC Hgb Hct MCV MCH MCHC RDW Plt Count MPV Immature Gran % (Auto) Neut % (Auto) Lymph % (Auto) [place] % (Auto) Eos % (Auto) Baso % (Auto) Lymph # (Auto) [place] # (Auto) Eos # (Auto) Baso # (Auto) Abs Immat Gran (auto) Absolute Neuts (auto) Absolute Nucleated RBC Nucleated RBC % (auto) VBG pH VBG pCO2 VBG pO2 VBG HCO3 VBG O2 Saturation VBG Base Excess Sodium 135 133 L Potassium 4.7 4.8 Chloride 95 L 94 L Carbon Dioxide 19 L 26 Anion Gap 26 H 18 BUN 17 H 18 H Creatinine 1.03 1.10 Estim Creat Clear Calc 109.3 103.6 Estimated GFR > 60 > 60 POC Glucose 335 H Random Glucose 231 H 306 H Calcium 8.3 L 8.5 Total Bilirubin AST ALT Alkaline Phosphatase Total Protein Albumin 12/05/22 12/06/22 12/06/22 23:13 00:51 05:06 WBC 8.0 RBC 4.28 L Hgb 15.6 Hct 44.3 MCV 103.5 H MCH 36.4 H MCHC 35.2 RDW 14.8 Plt Count 77 L MPV 9.6 Immature Gran % (Auto) 0.2 Neut % (Auto) 87.8 H Lymph % (Auto) 5.1 L [place] % (Auto) 6.9 Eos % (Auto) 0.0 Baso % (Auto) 0.0 Lymph # (Auto) 0.4 L [place] # (Auto) 0.6 Eos # (Auto) 0.0 Baso # (Auto) 0.0 Abs Immat Gran (auto) 0.02 Absolute Neuts (auto) 7.0 Absolute Nucleated RBC 0.000 Nucleated RBC % (auto) 0.0 VBG pH VBG pCO2 VBG pO2 VBG HCO3 VBG O2 Saturation VBG Base Excess Sodium 133 L 132 L Potassium 4.8 4.6 Chloride 95 L 94 L Carbon Dioxide 27 26 Anion Gap 16 17 BUN 18 H 17 H Creatinine 1.13 1.05 Estim Creat Clear Calc 100.8 108.0 Estimated GFR > 60 > 60 POC Glucose 272 H Random Glucose 256 H 211 H Calcium 8.6 8.6 Total Bilirubin 1.0 1.4 H AST 60 H 57 H ALT 38 37 Alkaline Phosphatase 139 H 134 H Total Protein 7.2 7.2 Albumin 3.5 3.4 L 12/06/22 12/06/22 05:07 12:02 WBC RBC Hgb Hct MCV MCH MCHC RDW Plt Count MPV Immature Gran % (Auto) Neut % (Auto) Lymph % (Auto) [place] % (Auto) Eos % (Auto) Baso % (Auto) Lymph # (Auto) [place] # (Auto) Eos # (Auto) Baso # (Auto) Abs Immat Gran (auto) Absolute Neuts (auto) Absolute Nucleated RBC Nucleated RBC % (auto) VBG pH 7.55 H VBG pCO2 33 VBG pO2 62 VBG HCO3 30 H VBG O2 Saturation 90.0 VBG Base Excess 7.9 Sodium Potassium Chloride Carbon Dioxide Anion Gap BUN Creatinine Estim Creat Clear Calc Estimated GFR POC Glucose 186 H Random Glucose Calcium Total Bilirubin AST ALT Alkaline Phosphatase Total Protein Albumin Progress Note: A&P Assessment and plan (1) Angioedema: Status: Acute (2) Thrombocytopenia: Status: Acute (3) Insulin dependent type 2 diabetes mellitus: Status: Acute (4) COPD (chronic obstructive pulmonary disease): Status: Acute (5) KD (obstructive sleep apnea): Status: Acute Plan Patient is a 57 Y M with COPD, KD, alcohol misuse, prior angioedema, p/w angioedema, intubated N:alcohol misuse, last drink prior to admission; to continue to monitor for signs, symptoms of withdrawal CV: hemodynamically stable; hypertension, on home metoprolol; holding lisinopril d/t c/f drug-induced angioedema R: angioedema, intubated, extubated 12/06; to continue antihistamines, steroids, and duonebs until complete resolution of L tongue swelling GI: no acute issues; nutrition: regular diet : function: at baseline; electrolytes: hyperglycemia, resolved; volume: goal euvolemia H: thrombocytopenia, on home aspirin, holding DVT prophylaxis enoxaparin; to follow-up HIT panel ID: no acute issues Quality Stroke Does the patient have a stroke diagnosis?: No VTE Prior VTE?: No VTE Risk Level:: Medical - moderate - high VTE Device Contraindication: N/A - Device Ordered VTE Drug Contraindication: Treatment Not Tolerated
[2022-12-06] MEDS: Nicotine 21 MG PATCH.TD24 TRANSDERMA (12:33)
--- NOTE | 2022-12-06 13:12 | MHC.CM.PN ---
Met w/pt to review d/c planning needs: pt resides w/spouse who can assist if needed and provides transportation. HCP on file, PCP Lauri Gonzalez. CM to follow for any d/c need changes.
[2022-12-06 13:23] LABS: Glucose, Whole Blood 171 mg/dL (60-115)
[2022-12-06] MEDS: PHENobarbitaL sodium 130 MG/ML IM ONCE 395 MG IM (14:34)
[2022-12-06 16:43] LABS: Glucose, Whole Blood 108 mg/dL (60-115)
[2022-12-06] MEDS: PHENobarbitaL sodium 130 MG/ML VIAL IM Q3Hx2 296 MG IM ×2 (17:36→19:57)
[2022-12-06 17:59] LABS: Complement C3 143 mg/dL (82-185)
[2022-12-06] MEDS: carBAMazepine 200 MG TABLET PO (20:59)
[2022-12-06] MEDS: Atorvastatin Calcium 40 MG TABLET PO (20:59)
[2022-12-06 21:05] LABS: Glucose, Whole Blood 148 mg/dL (60-115)
[2022-12-06] MEDS: Acetaminophen 325 MG TABLET 650 MG PO (22:11)
[2022-12-07] VITALS (20 sets, daily range): BP systolic 128–161; BP diastolic 75–96; PULSE 72–108; RESP 14–26; TEMP 36–36.9; O2SAT 89–98; BMI 35.4
[2022-12-07] MEDS: Acetaminophen 325 MG TABLET 650 MG PO ×2 (04:06→17:18)
[2022-12-07] MEDS: methylPREDNISolone Sod Succ 125 MG/2 ML VIAL 60 MG IVPUSH (04:07)
[2022-12-07] MEDS: diphenhydrAMINE HCL 50 MG/ML VIAL 25 MG IVPUSH ×3 (05:27→20:52)
[2022-12-07 05:39] LABS: VBG Base Excess 8.2 mmol/L; VBG HCO3 29 mmol/L (22-26); VBG pCO2 31 mmHg; VBG pH 7.58 (7.32-7.43); VBG pO2 72 mmHg
--- NOTE | 2022-12-07 05:39 | PC.NURSE ---
ASSUMED CARE OF PT AT 1900. HE IS A&OX3. IN BED WITH HOB UP 30-40 DEGREES. O2 ON AT 5L VIA NC. NO ACUTE RESP DISTRESS. PRODUCTIVE COUGH NOTED. PT STATES HE ALWAYS HAS THIS COUGH AT HOME EVER SINCE HIS LAST ADMISSION WHEN HE WAS TRACHED. O2 LATER DECREASED TO 4L. O2 SAT LOW 90'S. LUNGS WITH SCATTERED RHONCHI. SWELLING OF TONGUE IS ALMOST COMPLETELY GONE EXCEPT FOR SLIGHT SWELLING LEFT SIDE OF TONGUE. PT STATES HE DOESN'T FEEL THE SWELLING ANYMORE. HE CONTINUES ON BENEDRYL AND SOLUMEDROL. MONITOR SHOES NSR, HR 80'S, NO ECTOPY. HADDAD WAS REMOVED YESTERDAY AND PT HAS VOIDED 3 TIMES SINCE THEN WITHOUT DIFFICULTY. HE HAS MULTIPLE COMPLAINTS, FIRST BEING NEUROPATHY PAIN. RECEIVED LYRICA AND CYMBALTA AT HS. C/O HEADACHE IN WHICH TYLENOL WAS EFFECTIVE. STATES HE HAS TO GET OOB AND NEEDS TO GET PT. ACTIVE ROM EXERCISES DONE WITH HIS LEGS. HE IS VERY CONCERNED HE WONT BE ABLE TO WALK THIS IS WHAT HAPPENED AFTER HIS LAST HOSPITALIZATION. PT OFFERED REASSURANCE AND INFORMED HIM HE COULD USE A WALKER WHILE HE IS IN THE HOSPITAL AND WILL PASS HIS CONCERNS TO THE NEXT RN REGARDING PHYSICAL THERAPY.
[2022-12-07 05:46] LABS: MANUAL DIFF FLAG NO
[2022-12-07 05:54] LABS: Basophils Percent Auto 0.1 % (0-2); Hematocrit 44.7 % (42.0-52.0); Hemoglobin 15.7 g/dl (14.0-18.0); Imm Gran Abs Auto 0.04 X10*3/uL (0.00-0.03); Imm Gran Pct Auto 0.4 % (0.0-0.4); Lymphocytes Absolute Auto 0.8 X10*3/uL (1.2-4.9); Lymphocytes Percent Auto 7.6 % (20-40); Mean Corpuscular HGB Conc 35.1 g/dl (31.0-36.0); Mean Corpuscular Hemoglobin 36.4 pg (27.0-33.0); Mean Corpuscular Volume 103.7 fL (80.0-98.0); Mean Platelet Volume 10.3 fL (9.4-12.4); Monocytes Absolute Auto 0.7 X10*3/uL (0.1-1.2); Monocytes Percent Auto 6.6 % (2-11); Neutrophils Absolute Auto 8.7 x10*3/uL (2.0-8.3); Neutrophils Percent Auto 85.3 % (45-73); Platelet Count 84 X10*3/uL (160-400); Red Blood Count 4.31 X10*6/uL (4.60-5.80); Red Cell Distribution Width 15.1 % (11.0-16.0); White Blood Count 10.2 X10*3/uL (4.8-10.8)
[2022-12-07 05:57] LABS: Venous Blood Gas Refer to POC result
[2022-12-07] MEDS: Pregabalin 200 MG CAPSULE PO ×3 (06:12→20:51)
[2022-12-07 08:04] LABS: Glucose, Whole Blood 157 mg/dL (60-115)
[2022-12-07] MEDS: Aspirin 81 MG TAB.CHEW PO (08:08)
[2022-12-07] MEDS: Insulin Lispro 100 UNIT/ML 3 ML VIAL SUBCUT ×2 (08:08→11:59)
[2022-12-07] MEDS: Metoprolol Succinate ER 100 MG TAB.ER.24H PO (08:08)
[2022-12-07] MEDS: DULoxetine HCl 30 MG CAPSULE.DR PO ×2 (08:08→20:51)
[2022-12-07] MEDS: Folic Acid 1 MG TABLET PO (08:08)
[2022-12-07] MEDS: Albuterol/Iprat 2.5/0.5MG 3 ML AMPUL.NEB INHALE ×4 (08:14→19:46)
--- NOTE | 2022-12-07 08:26 | PM.CCPN ---
Subjective Subjective Date of Service: 12/07/22 Interval History: no significant overnight events Critical Care Time (minutes): 60 Physical Exam Vital Signs: Vital Signs: Last Vital Signs Temp 98.5 F 12/07/22 07:00 Pulse 82 12/07/22 08:16 Resp 16 12/07/22 08:16 BP 133/90 H 12/07/22 08:00 Pulse Ox 92 12/07/22 08:00 O2 Del Method Nasal Cannula 12/07/22 08:00 O2 Flow Rate 2 12/07/22 08:00 FiO2 40 12/06/22 11:00 BMI result Body Mass Index 35.4 Const: General: cooperative, healthy appearing, comfortable, no acute distress, well developed, alert, awake and Physically active Orientation/consciousness: patient oriented x3 HEENT: Other: no appreciable angioedema eyes, lips, tongue, gingival, or posterior oropharynx Eyes: General: appearance normal, both eyes and all related structures Pupils: Equal, round and reactive pupils present Neck: Other: appreciable midline tracheostomy scar, clean, dry, intact Neck: Yes normal visual inspection and Yes supple Chest: Chest palpation & inspection: normal inspection of the chest Resp: Effort & Inspection: normal respiratory effort and no respiratory distress Auscultation: clear to auscultation bilaterally Cardio: Rate: regular rate Rhythm: regular rhythm Heart sounds: S1 normal heart sound present and S2 normal heart sound present GI: Inspection: Yes normal to inspection and No distended Palpation (GI): Soft to palpation, not firm, nontender, no guarding and not rigid Skin: Other: some abrasions all 4 extremities Neuro: General: patient oriented x3 and no focal motor deficits Cranial nerves: Yes Equal, round and reactive pupils present Extrem: General: Yes normal to inspection Psych: Appearance: grossly normal Objective Data Labs 12/07/22 05:25 12/06/22 05:06 Labs: Laboratory Results - last 24 hr 12/05/22 12/06/22 12/06/22 09:08 12:02 13:19 WBC RBC Hgb Hct MCV MCH MCHC RDW Plt Count MPV Immature Gran % (Auto) Neut % (Auto) Lymph % (Auto) [place] % (Auto) Eos % (Auto) Baso % (Auto) Lymph # (Auto) [place] # (Auto) Eos # (Auto) Baso # (Auto) Abs Immat Gran (auto) Absolute Neuts (auto) Absolute Nucleated RBC Nucleated RBC % (auto) VBG pH VBG pCO2 VBG pO2 VBG HCO3 VBG O2 Saturation VBG Base Excess POC Glucose 186 H 171 H Complement C3 143 Complement C4 38 12/06/22 12/06/22 12/07/22 16:39 21:02 05:25 WBC 10.2 RBC 4.31 L Hgb 15.7 Hct 44.7 MCV 103.7 H MCH 36.4 H MCHC 35.1 RDW 15.1 Plt Count 84 L MPV 10.3 Immature Gran % (Auto) 0.4 Neut % (Auto) 85.3 H Lymph % (Auto) 7.6 L [place] % (Auto) 6.6 Eos % (Auto) 0.0 Baso % (Auto) 0.1 Lymph # (Auto) 0.8 L [place] # (Auto) 0.7 Eos # (Auto) 0.0 Baso # (Auto) 0.0 Abs Immat Gran (auto) 0.04 H Absolute Neuts (auto) 8.7 H Absolute Nucleated RBC 0.000 Nucleated RBC % (auto) 0.0 VBG pH VBG pCO2 VBG pO2 VBG HCO3 VBG O2 Saturation VBG Base Excess POC Glucose 108 148 H Complement C3 Complement C4 12/07/22 12/07/22 05:34 07:52 WBC RBC Hgb Hct MCV MCH MCHC RDW Plt Count MPV Immature Gran % (Auto) Neut % (Auto) Lymph % (Auto) [place] % (Auto) Eos % (Auto) Baso % (Auto) Lymph # (Auto) [place] # (Auto) Eos # (Auto) Baso # (Auto) Abs Immat Gran (auto) Absolute Neuts (auto) Absolute Nucleated RBC Nucleated RBC % (auto) VBG pH 7.58 H VBG pCO2 31 VBG pO2 72 VBG HCO3 29 H VBG O2 Saturation 93.0 VBG Base Excess 8.2 POC Glucose 157 H Complement C3 Complement C4 Progress Note: A&P Assessment and plan (1) Thrombocytopenia: Status: Acute (2) Insulin dependent type 2 diabetes mellitus: Status: Acute (3) COPD (chronic obstructive pulmonary disease): Status: Acute (4) KD (obstructive sleep apnea): Status: Acute (5) Angioedema: Status: Acute Plan Patient is a 57 Y M with COPD, KD, alcohol misuse, prior angioedema, p/w angioedema, intubated 12/04, extubated 12/06 N: alcohol misuse, last drink prior to admission; CIWA protocol w/ phenobarbital, improving CV: hemodynamically stable; hypertension, on home metoprolol; holding lisinopril d/t c/f drug-induced angioedema R: angioedema, intubated, extubated 12/06; complete resolution L tongue swelling; to continue antihistamines, duonebs while inpatient GI: no acute issues; nutrition: regular diet : function: at baseline; electrolytes: hyperglycemia, resolved; volume: goal euvolemia H: thrombocytopenia, stable; on home aspirin, re-started DVT prophylaxis enoxaparin; to follow-up HIT panel ID: no acute issues Quality Stroke Does the patient have a stroke diagnosis?: No VTE Prior VTE?: No VTE Risk Level:: Medical - moderate - high VTE Device Contraindication: Treatment Not Indicated VTE Drug Contraindication: N/A - Med Ordered
[2022-12-07] MEDS: Nicotine 21 MG PATCH.TD24 TRANSDERMA (08:50)
[2022-12-07] MEDS: Famotidine/PF 20 MG/2 ML VIAL IVPUSH ×2 (08:51→20:51)
[2022-12-07] MEDS: PHENobarbitaL 30 MG TABLET 60 MG PO ×2 (08:51→20:50)
[2022-12-07] MEDS: Insulin Glargine,Hum.rec.anlog 100 UNIT/ML 10 ML VIAL 30 UNIT SUBCUT (08:51)
[2022-12-07 10:48] LABS: Blood Urea Nitrogen 17 mg/dL (9-16); Creatinine Clr Calc Pharmacy 151.1; Estimated Glomerular Filt Rate > 60; Glucose Random 137 mg/dL (60-115)
[2022-12-07 10:58] LABS: Anion Gap 17 (12-20); Carbon Dioxide 26 mmol/L (22-29); Chloride 97 mmol/L (96-108); Potassium 3.9 mmol/L (3.3-5.1); Sodium 136 mmol/L (135-145)
[2022-12-07 11:14] LABS: Glucose, Whole Blood 156 mg/dL (60-115)
--- NOTE | 2022-12-07 13:00 | PC.NURSE ---
Pt received from the ICU to room 360 . Placed on tele as per orders . A&OX4 cooperative. Oriented to room and call carrizales system . routine care
[2022-12-07] MEDS: Enoxaparin Sodium 40 MG/0.4 ML SYRINGE SUBCUT (15:13)
--- NOTE | 2022-12-07 15:15 | PM.EVENT ---
Event Note Date of Service: 12/07/22 Event Note: 57 Y M with COPD, KD, insulin-dependent DM, CAD s/p stent placements, and alcohol misuse, with prior episode of angioedema 05/15/2022 at which time his angioedema progressed despite antihistamines, steroids, and ultimately required emergent tracheostomy; hospital course c/b pulmonary edema, respiratory failure, and alcohol withdrawal seizures; ultimately patient was decannulated. patient presented to [place] ED on 12/04 w/ angioedema and d/t concern of progressing angioedema he was intubated patient in ED and transferred to the ICU for further care. He was treated with steroids, breathing treatments, antihistimines and started on phenobarbitol for treatment of etoh withdrawal. His lisinopril was discontinued. He was extubated 12/06 and downgraded to the medical floor on 12/07 angioedema s/p intubation s/p steroids continue pepcid, benadryl for now etoh dependence with withdrawal drinks 6 nips and one beer daily - pt states he has cut down; h/o DTs continue phenobarbitol protocol continue folic acid CT showing concern for cirrhotic changes of liver - outpatient GI follow up addiction medicine consult pending recently fell off couch CT brain showing possible left nasal bone fracture but pt with no tenderness or bruising on exam Right flank hematoma PT evaluation check b12 thrombocytopenia likely r/t etoh plt stable HTN lisinopril d/c due to angioedema continue metoprolol DM SSI, Lantus HLD continue statin mood continue tegretol, cymbalta, lyrica tobacco use disorder continue NRT hyperkalemia resolved with treatment hyponatremia resolved Time Spent With Patient Time: Total time managing care of this patient today ____ minutes.
[2022-12-07 16:18] LABS: Glucose, Whole Blood 70 mg/dL (60-115)
[2022-12-07 20:23] LABS: Glucose, Whole Blood 138 mg/dL (60-115)
[2022-12-07] MEDS: Atorvastatin Calcium 40 MG TABLET PO (20:50)
[2022-12-07] MEDS: carBAMazepine 200 MG TABLET PO (20:50)
[2022-12-08] VITALS: BP 133/84; PULSE 90; RESP 20; TEMP 36.2; O2SAT 93
[2022-12-08] MEDS: Acetaminophen 325 MG TABLET 650 MG PO ×2 (01:00→10:55)
[2022-12-08] MEDS: traZODone HCL 50 MG TABLET PO (01:52)
[2022-12-08 04:00] VITALS: BP 135/84; PULSE 91; RESP 18; TEMP 36.2; O2SAT 92
[2022-12-08 05:47] VITALS: BMI 33.2
[2022-12-08 06:55] VITALS: BP 147/91; PULSE 90; RESP 17; TEMP 36.6; O2SAT 95
[2022-12-08 06:59] LABS: Folate 15.9 ng/mL (> or = 4.0); Vitamin B12 514 pg/mL (200-900)
[2022-12-08 07:14] LABS: Glucose, Whole Blood 87 mg/dL (60-115)
[2022-12-08] MEDS: Albuterol/Iprat 2.5/0.5MG 3 ML AMPUL.NEB INHALE ×2 (07:46→12:03)
[2022-12-08 07:48] VITALS: PULSE 93; RESP 16; O2SAT 92
[2022-12-08] MEDS: Nicotine 21 MG PATCH.TD24 TRANSDERMA (08:58)
[2022-12-08] MEDS: PHENobarbitaL 30 MG TABLET 60 MG PO (08:58)
[2022-12-08] MEDS: Famotidine/PF 20 MG/2 ML VIAL IVPUSH (08:58)
[2022-12-08] MEDS: Pregabalin 200 MG CAPSULE PO (08:58)
[2022-12-08] MEDS: Aspirin 81 MG TAB.CHEW PO (08:59)
[2022-12-08] MEDS: DULoxetine HCl 30 MG CAPSULE.DR PO (08:59)
[2022-12-08] MEDS: Metoprolol Succinate ER 100 MG TAB.ER.24H PO (08:59)
[2022-12-08] MEDS: Insulin Glargine,Hum.rec.anlog 100 UNIT/ML 10 ML VIAL 30 UNIT SUBCUT (08:59)
[2022-12-08] MEDS: Folic Acid 1 MG TABLET PO (08:59)
--- NOTE | 2022-12-08 11:14 | P.DS_ITS ---
DS: Providers Provider Date of Service: 12/08/22 Date of admission: 12/04/22 15:52 Date of discharge: 12/08/22 Primary care physician: MONTY Gómez Consults: 12/07/22 15:50 Addiction Medicine Routine Consulting Provider: Addiction Covering Reason for consultation: etoh withdrawal Has provider been notified: No Attending physician on discharge: Antoine Rodriguez Discharging clinician: Doreen Reyes DS: Diagnosis Discharge Diagnosis (1) Angioedema: Status: Acute (2) Thrombocytopenia: Status: Acute (3) Insulin dependent type 2 diabetes mellitus: Status: Acute (4) COPD (chronic obstructive pulmonary disease): Status: Acute (5) KD (obstructive sleep apnea): Status: Acute DS: Summary Hospital Course Hospital Course: From H&P on the day of admission Patient is a 57 Y M with COPD, KD, insulin- dependent DM, CAD s/p stent placements, and alcohol misuse, with prior episode of angioedema 05/15/2022; of note, patient presented to [place] ED with angioedema, which progressed despite antihistamines, steroids, intubated in OR, which appeared complicated, ultimately patient recieving emergent tracheostomy; hospital course c/b pulmonary edema, respiratory failure, and alcohol withdrawal c/b seizures; ultimately patient was decannulated; patient represents to [place] ED on 12/04 w/ angioedema; patient and patient bedside report patient in otherwise normal state of health, developed swelling of L face in AM, progressed to include upper lip; of note, patient reports patient's voice appears abnormal; d/t concern of progressing angioedema, decision made to intubate patient in ED; of note, patient's reports the patient has lip swelling and rash with penicillins and cyclobenzaprine; patient is on lisinopril outpatient; moreover, patient's denies family history of angioedema 57 Y M with COPD, KD, insulin-dependent DM, CAD s/p stent placements, and alcohol misuse, with prior episode of angioedema 05/15/2022 at which time his angioedema progressed despite antihistamines, steroids, and ultimately required emergent tracheostomy. patient presented to [place] ED on 12/04 w/ angioedema and d/t concern of progressing angioedema he was intubated patient in ED and transferred to the ICU for further care. He was treated with steroids, breathing treatments, antihistimines and started on phenobarbitol for treatment of etoh withdrawal. His lisinopril was discontinued. He was extubated 12/06 and downgraded to the medical floor on 12/07 angioedema s/p intubation/ICU level care. Treated with steroids, antihistamines and Benadryl with resolution of edema and was extubated 12/07. Lisinopril was discontinued. He has been weaned off of oxygen and doing well on room air. He has no remaining swelling, no difficulty swallowing. He should stop taking lisinopril and avoid FADIA inhibitors in the future, this was discussed with him and his in detail. Recommend outpatient follow up with insulation mechanic. He has epipen at home and return precautions were discussed. etoh dependence with withdrawal drinks 6 nips and one beer daily - pt states he has cut down; He was treated with phenobarbitol protocol. CT showing concern for cirrhotic changes of liver - recommend outpatient GI follow up addiction medicine consult was ordered but patient elected to defer evaluation, does not feel it would be beneficial and would like to be discharged. recently fell off couch CT brain showing possible left nasal bone fracture but pt with no tenderness or bruising on exam. Right flank hematoma. H/H has remained stable. Patient has been ambulating without issue in the hallway with walker which he has at home. thrombocytopenia likely related to chronic alcohol use. Cirrhotic appearing living on imaging. HIT panel sent in ICU but less likely, 4Tscore is 1. Platelets have remained stable for several days. HTN lisinopril d/c due to angioedema. Blood pressure has been controlled on metoprolol. Will need close montoring outpatient. He was continued on other medications during hospitalization. tobacco use disorder - smoking cessation advised hyperkalemia. resolved with treatment Hyponatremia-resolved Time Spent with Patient Time attestation: Total time managing care of this patient today ____ minutes. Discharge coordination time: Greater than 30 minutes Quality: Safe Use of Opioids Does Pt have an Active Cancer Diagnosis on the Problem List?: No Quality: Stroke Does the patient have a stroke diagnosis?: No Physical Exam Vital Signs: Vital Signs: Last Vital Signs Temp 98 F 12/08/22 06:55 Pulse 93 12/08/22 07:48 Resp 16 12/08/22 07:48 BP 147/91 H 12/08/22 06:55 Pulse Ox 95 12/08/22 06:55 O2 Del Method Room Air 12/08/22 06:55 O2 Flow Rate 2 12/07/22 19:56 FiO2 50 12/07/22 09:00 BMI result Body Mass Index 33.2 Const: General: cooperative, comfortable, no acute distress, alert and awake Nutritional Appearance: overweight Orientation/consciousness: patient oriented x3 Resp: Effort & Inspection: normal respiratory effort, able to speak in complete sentences, no respiratory distress and no use of accessory muscles Cardio: Rate: regular rate GI: Inspection: No distended Palpation (GI): Soft to palpation Neuro: General: patient oriented x3 and moves all extremities Extrem: General: Yes no pedal edema DS: Data Data Completed and Pending Completed studies during hospitalization [Text1]: Procedures Bypass Trachea to Cutaneous with Tracheostomy Device, Percutaneous Approach (05/15/22) Change Tracheostomy Device in Trachea, External Approach (05/15/22) Respiratory Ventilation, Greater than 96 Consecutive Hours (05/15/22) Transfusion of Nonautologous Frozen Plasma into Peripheral Vein, Percutaneous Approach (05/15/22) Labs on day of discharge: Laboratory Results - last 24 hr 12/07/22 12/07/22 12/07/22 11:07 16:05 20:16 POC Glucose 156 H 70 138 H Vitamin B12 Folate 12/08/22 12/08/22 05:35 07:11 POC Glucose 87 Vitamin B12 514 Folate 15.9 Discharge Plan Discharge Anticipated Discharge Date/Time: 12/08/22 13:00 Patient Disposition: Home, Self-Care Discharge Diagnosis: angioedema etoh dependence with withdrawal hyperkalemia thrombocytopenia Referrals: Lauri Gonzalez, [employer] [Primary Care Provider] - 1 Week Discharge Medications: Continued atorvastatin 40 mg tablet 40 mg PO DAILY Qty: 90 3RF metoprolol succinate 50 mg tablet extended release 24 hr 100 mg PO DAILY 90 Days Qty: 180 1RF sildenafil 25 mg tablet 25 mg PO DAILY PRN (Reason: sexual activity) Qty: 10 0RF Rx Instructions: administer 30 minutes to 4 hours before activity folic acid 1 mg tablet 1 mg PO DAILY Qty: 90 1RF insulin glargine [Lantus Solostar U-100 Insulin] 100 unit/mL (3 mL) insulin pen 30 unit subcut DAILY Qty: 30 1RF multivitamin Tablet 1 tab PO DAILY pyridoxine (vitamin B6) 50 mg tablet 1 tab PO DAILY oxycodone 5 mg tablet 1 tab PO DAILY PRN (Reason: Moderate Pain (Scale Score 5-6)) duloxetine 30 mg capsule,delayed release(DR/EC) 1 cap PO BID aspirin 81 mg Tablet,Delayed Release (Dr/Ec) 81 mg PO DAILY carbamazepine 200 mg tablet 200 mg PO BEDTIME pregabalin 200 mg Capsule 200 mg PO TID ipratropium-albuterol 0.5 mg-3 mg(2.5 mg base)/3 mL solution for nebulization 3 ml inhalation Q4-6H PRN (Reason: Wheezing) Spiriva Respimat 2.5 mcg/actuation mist 2 puff inhalation QAM 30 Days Qty: 4 6RF albuterol sulfate 90 mcg/actuation HFA aerosol inhaler 2 puff inhalation Q4-6H PRN (Reason: shortness of breath or wheezing) Qty: 1 3RF Discontinued lisinopril 10 mg tablet 10 mg PO DAILY Qty: 90 3RF No Action (DME) lancets [BD Ultra-Fine II Lancets] 30 gauge misc See Rx Instructions .Route Qty: 100 0RF Rx Instructions: TID (DME) blood-glucose meter [Accu-Chek Guide Me Glucose Mtr] Misc See Rx Instructions .Route Qty: 1 0RF Rx Instructions: TID testing (DME) Accu-Chek Guide test strips Strip See Rx Instructions .Route Qty: 300 1RF Rx Instructions: tid testing Discharge Orders: Discharge Order (Routine); Ordered 12/08/22 Ordered By: Doreen Reyes Activity on Discharge: As tolerated Stand Alone Forms: Patient Portal Discharge page Care Plan Goals: see below Health Concerns: angioedema alcohol dependence with withdrawal elevated potassium levels thrombocytopenia Plan of Treatment: do NOT take lisinopril or similar medications (FADIA inhibitors) in the future call to schedule follow up with PCP -recommend outpatient evaluation with insulation mechanic recommend to avoid alcohol use imaging shows likely liver cirrhosis - recommend outpatient follow up with GI Assessment: see discharge summary Discharge Date/Time: 12/08/22 13:35
[2022-12-08 11:17] LABS: Glucose, Whole Blood 108 mg/dL (60-115)
[2022-12-08 11:43] VITALS: BP 138/66; PULSE 96; RESP 18; TEMP 36.1; O2SAT 91
[2022-12-08 12:04] VITALS: PULSE 96; RESP 16; O2SAT 92
--- NOTE | 2022-12-08 14:12 | MHC.CM.PN ---
PT WILL DC HOME TODAY WITH NO SERVICES SPOUSE TO TRANSPORT
[2022-12-09 05:43] LABS: C1 Esterase Inhibitor 98 % (>=68)
[2022-12-10 00:09] LABS: HIT-Patient Optical Density 0.112 OD UNITS; Heparin Induced Plt Ab Negative (Negative)
== END 2022-12-08 13:35 | disposition home or self-care (01) | DRG 916 ==
LOC: HO.ED 16:09 → HO.EDOVER 16:12 → HO.ICU 17:16 → HO.S3 12-07 12:28
PROVIDERS: Emergency Medicine; Physician Assistant Medical; Registered Nurse Community Health; Admitting Provider Internal Medicine Critical Care Medicine; Emergency Provider Internal Medicine; PCP Nurse Practitioner Family; Visit Provider Physician Assistant Medical
DX: T78.3XXA Angioneurotic edema, initial encounter (principal); I50.32 Chronic diastolic (congestive) heart failure; F10.239 Alcohol dependence with withdrawal, unspecified; E87.1 Hypo-osmolality and hyponatremia; E11.40 Type 2 diabetes mellitus with diabetic neuropathy, unspecified; G47.33 Obstructive sleep apnea (adult) (pediatric); G40.909 Epilepsy, unspecified, not intractable, without status epilepticus; E87.5 Hyperkalemia; S02.2XXA Fracture of nasal bones, initial encounter for closed fracture; S30.1XXA Contusion of abdominal wall, initial encounter; W08.XXXA Fall from other furniture, initial encounter; T46.4X5A Adverse effect of angiotensin-converting-enzyme inhibitors, initial encounter; I11.0 Hypertensive heart disease with heart failure; Y90.8 Blood alcohol level of 240 mg/100 ml or more; E78.5 Hyperlipidemia, unspecified; E11.65 Type 2 diabetes mellitus with hyperglycemia; K74.60 Unspecified cirrhosis of liver; D69.59 Other secondary thrombocytopenia; F17.210 Nicotine dependence, cigarettes, uncomplicated; Z71.6 Tobacco abuse counseling; I25.10 Atherosclerotic heart disease of native coronary artery without angina pectoris; Z95.5 Presence of coronary angioplasty implant and graft; Z79.4 Long term (current) use of insulin; Z79.82 Long term (current) use of aspirin; Z79.899 Other long term (current) drug therapy
CPT/HCPCS: 36415; 36600; 70450; 71045; 74177; 80048; 80053; 80076; 80307; 82607; 82746; 82803; 82947; 83520; 83735; 84100; 85025; 85610; 86022; 86160; 86161; 86850; 86900; 86901; 93005; 94002; 94003; 94640; 99284; 99291; C1758; J0171; J0330; J1200; J1650; J1940; J2560; J2930; J3010; P9017; Q9967

== ENCOUNTER → 2022-12-04 15:52 | Outpatient (BNV) | payer OTHER, SELFPAY | PROVIDERS: Admitting Provider Internal Medicine Critical Care Medicine; Emergency Provider Internal Medicine; PCP Nurse Practitioner Family; Visit Provider Physician Assistant Medical | DX: T78.3XXA Angioneurotic edema, initial encounter (principal); D69.6 Thrombocytopenia, unspecified; E11.9 Type 2 diabetes mellitus without complications; Z79.4 Long term (current) use of insulin; J44.9 Chronic obstructive pulmonary disease, unspecified; G47.33 Obstructive sleep apnea (adult) (pediatric) | CPT/HCPCS: 99239; 99499 ==

== ENCOUNTER 2022-12-17 10:47 | Outpatient (AMB) | payer OTHER, SELFPAY ==
[2022-12-17 11:15] VITALS: BP 142/90; PULSE 94; O2SAT 94; BMI 34.7
--- NOTE | 2022-12-17 11:15 | MHC.PC.OV ---
Vital Signs 12/17/22 11:15 Height 6 ft 2 in Weight 270 lb 4 oz BMI 34.7 BP 142/90 H Blood Pressure Location Lt brachial Position Sitting Pulse 94 Pulse Source Pulse Oximeter Pulse Oximetry (%) 94 Oxygen Delivery Method Room Air Intake Visit Reasons: HDF ~ Post hospital discharge FU Allergies cyclobenzaprine [From FLEXERIL] Allergy (Unknown, Verified 12/17/22 12:33) RASH penicillin V Allergy (Unknown, Verified 12/17/22 12:33) anaphylaxis pineapple Allergy (Unknown, Verified 12/17/22 12:33) Unknown FADIA Inhibitors Adverse Reaction (Severe, Verified 12/17/22 12:33) Angioedema Medication List - Last Reconciled 12/17/22 by Lauri Gonzalez, MARIA INES-ROSA Accu-Chek Guide Me Glucose Mtr (blood-glucose meter) TID testing NS Accu-Chek Guide test strips (blood sugar diagnostic) tid testing NS albuterol sulfate 90 mcg/actuation 2 puffs inhalation Q4-6H PRN aspirin 81 mg PO DAILY atorvastatin 40 mg PO DAILY carbamazepine 200 mg PO BEDTIME duloxetine 1 cap PO BID folic acid 1 mg PO DAILY furosemide 20 mg PO DAILY insulin glargine (Lantus Solostar U-100 Insulin) 30 units (0.3 mL) subcut DAILY ipratropium-albuterol 0.5 mg-3 mg(2.5 mg base)/3 mL 3 mL inhalation Q4-6H PRN lancets (BD Ultra-Fine II Lancets) TID metoprolol succinate ER 100 mg (2 x 50 mg) PO DAILY 90 days multivitamin 1 tab PO DAILY oxycodone 1 tab PO DAILY PRN pregabalin 200 mg PO TID pyridoxine (vitamin B6) 1 tab PO DAILY tiotropium bromide 2.5 mcg/actuation (Spiriva Respimat) 2 puffs inhalation QAM 30 days Tobacco use date assessed: 04/02/22 Dental Screening Dental Screen Date: 12/17/22 Did you have a dental visit in the last 12 months?: No Did you have a dental problem in the last 6 months where you did not have access to dental care?: No Was dental information given to patient?: Patient has dentist HPI HDF ~ Post hospital discharge FU HPI Details Pt was seen in the ER on 12/04 c/o left-sided facial swelling. The swelling was noted to be spreading across the soft palate and uvula. Pt was intubated in the ER. He was admitted to ICU. Pt was treated with steroids, antihistamines, and breathing treatments with improvement of symptoms. He was extubated on 12/06 and downgraded to the medical floor on 12/07. Pt's symptoms were thought to be angioedema related to lisinopril, this was stopped. Pt was weaned off oxygen. He had no remaining swelling. Pt's ETOH withdrawal was treated with phenobarbital protocol. It was recommended that pt following up with GI. Pt also had a recent fall off of the couch. CT of the brain showed possible left nasal bone fracture, though pt had no tenderness or bruising. A right flank hematoma was also noted, H&H remained stable. Thrombocytopenia was noted, likely related to chronic alcohol use. Cirrhotic appearing liver on imaging. Will order labs. Denies chest pain, shortness of breath, and dizziness. +2 pitting to BLE, ordering a echo, BNP, thyroid, and increasing lasix to 20mg bid x 3 day straight. told him to keep his BLE elevated when he can. 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 [facility] Medical History CAD (coronary artery disease) COPD (chronic obstructive pulmonary disease) Diabetes Diabetic neuropathy Diastolic CHF ETOH abuse Fatty liver Foot ulcer, left Fracture of right tibia and fibula History of colon polyps History of hepatitis C History of TIA (transient ischemic attack) HTN (hypertension) Insulin dependent type 2 diabetes mellitus Metatarsal bone fracture Microalbuminuria Morbid obesity Nicotine dependence, cigarettes, uncomplicated Obesity KD (obstructive sleep apnea) Respiratory failure Restrictive airway disease Seizure disorder Tracheostomy care Transaminitis Surgical History History of cardiac catheterization (~2018) History of colonoscopy (~2018) History of hernia repair History of lumbar spinal fusion History of surgery on lower extremity (~2019) Family History Father CVD (cardiovascular disease) Colon cancer Mother No problems noted. Brother Liver cancer Paternal Aunt Colon cancer Social History Household Members: None and Unknown / Unable to assess Household Members Other:: Housing: Unknown / Unable to assess Do you presently have visiting nurse or other home services: No Unable to assess alcohol history related to: Unable to respond Alcohol intake: current Alcohol intake frequency: holidays/special occasions only Alcohol type: beer and hard liquor Patient Tobacco Use Status: Current everyday Tobacco user Tobacco use type: Cigarette Cigarette Packs Per Day: 1 Cigarettes Per Day: 20 Second Hand Smoke Exposure: Yes Substance Use Type: Marijuana Advance Directives Date on File: 03/20/22 service: No Current occupational status: disabled Current occupation: right handed Cognitive needs: No Hearing needs: No Vision needs: No Questionnaire Thrive Questionnaire Date Thrive assessed: 12/06/22 YESSENIA-7 AMB Questionnaire YESSENIA-7 Date YESSENIA - 7 assessed: 06/04/22 Source: Developed by Drs. Pilo Burton, Britni Romeo, Tay Rogers and colleagues, with an educational cathy from [employer]. Review of Systems Const Reports as per HPI Physical exam (Primary Care) Vital Signs: Last Vital Signs Pulse 94 12/17/22 11:15 BP 142/90 H 12/17/22 11:15 Pulse Ox 94 12/17/22 11:15 Oxygen Delivery Method Room Air 12/17/22 11:15 BMI result Body Mass Index 34.7 Tobacco/Smoking Status: Tobacco use Status Tobacco use date assessed 04/02/22 12/17/22 11:22 Patient Tobacco Use Status Current everyday Tobacco 12/17/22 11:22 Tobacco use type Cigarette 12/17/22 11:22 Thrive Assessment: Date of Thrive Assessment Date Thrive assessed 12/06/22 12/17/22 11:22 Const Other: in wheelchair General: cooperative Nutritional Appearance: obese Orientation/consciousness: patient oriented x3 Limitations: wheelchair Resp Effort & Inspection: normal respiratory effort Auscultation: clear to auscultation bilaterally Cardio Rate: regular rate Rhythm: regular rhythm Heart sounds: S1 normal heart sound present and S2 normal heart sound present Skin Other: large heeling echymosis noted to right flank/lateral torso, lower right abd Neuro General: patient oriented x3 Extrem Right lower extremity: edema Details: pitting and 2+ Left lower extremity: edema Details: pitting and 2+ Psych Appearance: grossly normal Mental Status: mental status grossly normal Speech and movement: Normal speech and movement present Affect: normal affect Attitude: cooperative Thought process: Normal thought process present Thought content: Normal thought content present Insight: Good insight present (Psych) Judgement: Good judgement present (Psych) Assessment and Plan Assessment & Plan (1) Screening PSA (prostate specific antigen): Code(s): Z12.5 - Encounter for screening for malignant neoplasm of prostate Plan: PSA ordered (2) Leg swelling: Code(s): M79.89 - Other specified soft tissue disorders Plan: echo, labs, increasing diuretic to bid for 3 days Plan The patient agreed to the use of a medical records coder for this encounter. Scribed for MARIA INES Cisneros-BC by Ashley Tejada medical records coder, on 12/17/2022 at 11:45 EST. Orders: Orders UA CC w/rflx Micro + Cult Today Z12.5 - Encounter for screening for malignant neoplasm of prostate CA echo transthoracic complete Today M79.89 - Other specified soft tissue disorders B Type Natriuretic Peptide Today M79.89 - Other specified soft tissue disorders Complete Blood Count Auto Diff Today Z12.5 - Encounter for screening for malignant neoplasm of prostate Comprehensive Met. Panel Today Z12.5 - Encounter for screening for malignant neoplasm of prostate TSH reflex Free T4 Today Z12.5 - Encounter for screening for malignant neoplasm of prostate Prostate Specific Antigen Scr Today Z12.5 - Encounter for screening for malignant neoplasm of prostate Medications: New ipratropium-albuterol 0.5 mg-3 mg(2.5 mg base)/3 mL 3 mL inhalation Q4-6H PRN 90 mL 0RF Wheezing Coding Level of Care Code Est Pt Level 3 (95924) Diagnoses Screening PSA (prostate specific antigen) Z12.5 Leg swelling M79.89
== END 2022-12-17 14:24 | disposition home or self-care (01) ==
PROVIDERS: PCP Nurse Practitioner Family; Visit Provider Nurse Practitioner Family
DX: Z12.5 Encounter for screening for malignant neoplasm of prostate (principal); M79.89 Other specified soft tissue disorders
CPT/HCPCS: 99213

== ENCOUNTER 2022-12-17 11:54 | Outpatient (REF) | payer OTHER, SELFPAY ==
[2022-12-17 13:21] LABS: MANUAL DIFF FLAG NO
[2022-12-17 13:23] LABS: Appearance Urine Clear; Color Urine Dark Yellow; Glucose Urine UA Negative (Negative); Leukocyte Esterase Urine Small (1+) (Negative); Nitrite Urine Negative (Negative); PH 5.5 (5.0-9.0); UMIC TRIGGER UACC YES; Urine Blood Negative (Negative); Urine Ketones Negative (Negative); Urine Protein 30 (1+) mg/dL (Neg-Trace)
[2022-12-17 13:26] LABS: Bacteria Urine 2+ (None Seen); RBC Urine 0-2 /HPF (0-2); UACC Culture Trigger YES; WBC Urine 21-50 /HPF (0-5)
[2022-12-17 13:38] LABS: Basophils Absolute Auto 0.1 X10*3/uL (0.0-0.2); Basophils Percent Auto 1.1 % (0-2); Eosinophils Absolute Auto 0.1 X10*3/uL (0.0-0.4); Eosinophils Percent Auto 1.4 % (0-4); Hemoglobin 14.2 g/dl (14.0-18.0); Imm Gran Abs Auto 0.04 X10*3/uL (0.00-0.03); Imm Gran Pct Auto 0.4 % (0.0-0.4); Lymphocytes Absolute Auto 1.4 X10*3/uL (1.2-4.9); Lymphocytes Percent Auto 15.1 % (20-40); Mean Corpuscular HGB Conc 34.6 g/dl (31.0-36.0); Mean Corpuscular Hemoglobin 37.1 pg (27.0-33.0); Mean Platelet Volume 10.2 fL (9.4-12.4); Monocytes Absolute Auto 0.7 X10*3/uL (0.1-1.2); Neutrophils Absolute Auto 6.8 x10*3/uL (2.0-8.3); Platelet Count 196 X10*3/uL (160-400); Red Blood Count 3.83 X10*6/uL (4.60-5.80); Red Cell Distribution Width 14.7 % (11.0-16.0); White Blood Count 9.3 X10*3/uL (4.8-10.8)
[2022-12-17 13:59] LABS: B Type Natriuretic Peptide 52 pg/mL (<100)
[2022-12-17 14:16] LABS: Alanine Aminotransferase 61 U/L (0-40); Albumin Level 3.3 g/dL (3.5-5.0); Alkaline Phosphatase 200 U/L (39-117); Anion Gap 16 (12-20); Aspartate Amino Transferase 82 U/L (5-37); Bilirubin Total 0.8 mg/dL (0.0-1.0); Blood Urea Nitrogen 6 mg/dL (9-16); Carbon Dioxide 30 mmol/L (22-29); Chloride 97 mmol/L (96-108); Estimated Glomerular Filt Rate > 60; Glucose Random 150 mg/dL (60-115); Potassium 3.3 mmol/L (3.3-5.1); Sodium 140 mmol/L (135-145)
[2022-12-17 14:36] LABS: TSH reflex Free T4 2.46 uIU/mL (0.32-4.0)
== END 2022-12-17 11:55 | disposition home or self-care (01) ==
LOC: HO.HMGCLDS 11:54
PROVIDERS: PCP Nurse Practitioner Family; Visit Provider Nurse Practitioner Family
DX: Z12.5 Encounter for screening for malignant neoplasm of prostate (principal); M79.89 Other specified soft tissue disorders; R82.90 Unspecified abnormal findings in urine; Z13.29 Encounter for screening for other suspected endocrine disorder
CPT/HCPCS: 36415; 80053; 81001; 83880; 84153; 84443; 85025; 87086; 87088; 87186

== ENCOUNTER 2023-02-14 10:55 | Outpatient (AMB) | payer OTHER, SELFPAY ==
--- NOTE | 2023-02-14 08:41 | A.OFFVIS_ITS ---
Intake Intake Visit Reasons: LDCT SD Allergies cyclobenzaprine [From FLEXERIL] Allergy (Unknown, Verified 12/17/22 12:33) RASH penicillin V Allergy (Unknown, Verified 12/17/22 12:33) anaphylaxis pineapple Allergy (Unknown, Verified 12/17/22 12:33) Unknown FADIA Inhibitors Adverse Reaction (Severe, Verified 12/17/22 12:33) Angioedema HPI LDCT SD HPI Details Initial telehealth/phone SDM visit for this 57yo smoker with a 50+PYH. Patient has been smoking since age 18 for 39 years at 1-2ppd. Now 04/01. . Reports marijuana use. Denies second hand smoke exposure. Denies exposure to chemicals or substances like asbestos. . Denies known family history of lung cancer. Denies personal history of cancers. . Denies chest CT in last year. 03/16/[address] did not note any ke picious nodules. . Denies recent travel outside the [place]. Denies recent respiratory illness or recent hospitalization for respiratory issues. 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 He does complain of weird sensation in throat where it was like moving tissue. . Denies testing positive for COVID. Admits receiving COVID Vaccine. x 5. . Denies fever, chills, new/worsening cough, hemoptysis, hoarseness or dysphagia. Denies significant chest pain, significant dyspnea or unintentional weight loss. Patient Lung Cancer Screening Questionnaire reviewed with patient by provider. . Shared Decision Making Completed. Patient meets criteria. Discussed in detail with patient, the risk vs benefit of LDCT screening. Patient consents to proceed with scan. Discussed smoking cessation. [facility] Medical History (Updated 02/14/23 @ 10:26 by Lisa Devi PA-C) Nicotine dependence, cigarettes, uncomplicated Tracheostomy care Respiratory failure Diastolic CHF Seizure disorder History of TIA (transient ischemic attack) History of hepatitis C CAD (coronary artery disease) HTN (hypertension) Insulin dependent type 2 diabetes mellitus Diabetes Diabetic neuropathy Restrictive airway disease COPD (chronic obstructive pulmonary disease) KD (obstructive sleep apnea) ETOH abuse Morbid obesity Transaminitis Fatty liver History of colon polyps Obesity Microalbuminuria Foot ulcer, left Fracture of right tibia and fibula Metatarsal bone fracture Surgical History (Updated 02/03/23 @ 11:45 by Lisa Devi PA-C) History of surgery on lower extremity (~2019) History of lumbar spinal fusion History of colonoscopy (~2018) History of hernia repair History of cardiac catheterization (~2019) Family History Father CVD (cardiovascular disease) Colon cancer Mother No problems noted. Brother Liver cancer Paternal Aunt Colon cancer Social History (Updated 02/14/23 @ 10:26 by Lisa Devi PA-C) Household Members: None and Unknown / Unable to assess Household Members Other:: Housing: Unknown / Unable to assess Do you presently have visiting nurse or other home services: No Unable to assess alcohol history related to: Unable to respond Alcohol intake: current Alcohol intake frequency: holidays/special occasions only Alcohol type: beer and hard liquor Patient Tobacco Use Status: Current everyday Tobacco user Tobacco use type: Cigarette Years Smoked: onset 18yo, 1-2ppd x 39yrsm now 1/2ppd - 50pyh Second Hand Smoke Exposure: Yes Substance Use Type: Marijuana Advance Directives Date on File: 03/20/22 service: No Current occupational status: disabled Current occupation: right handed Cognitive needs: No Hearing needs: No Vision needs: No Assessment & Plan Assessment & Plan (1) Nicotine dependence, cigarettes, uncomplicated: Comment: (current smoker - onset 18yo, 1-2ppd x 39yrsm now 1/2ppd - 50pyh) Code(s): F17.210 - Nicotine dependence, cigarettes, uncomplicated Plan: - SDM visit completed today via phone - Patient meets criteria for LDCT for lung cancer screening purposes and is asymptomatic. - Smoking cessation counseling offered. Patients can always call [phone]. - Will arrange for a LDCT scan of the chest for screening purposes at [facility]. - Risks, benefits, and alternatives were discussed in detail and the patient agrees to proceed. - Risks discussed include but are not limited to: radiation exposure, anxiety during testing and while awaiting results, false negatives, false positives and possibility of additional intervention such as further imaging or surgical procedures for benign disease. - Benefits are obviously detection of lung cancer at an early stage which can lead to improved outcomes. - Discussed the importance of screening program compliance with adherence to yearly LDCT scan as scheduled - or sooner interval scans for personalized screening regimen. - Discussed follow up plan. Our office will send a letter discussing results and if needed set up phone call and office visit based on CT findings. - Patient educated on results categorization and the management decisions for suspicious findings potentially found on the screening LDCT scan. Any patient with a Lung RADS score of 3 or 4 will be reviewed by a multidisciplinary team at [facility] to form a plan of action in regards to scan findings. - If further work up is warranted for a suspicious lung finding this will be followed by the Lung Cancer Screening program in conjunction with the Thoracic Surgery Department at [facility]. - A copy of the office note and LDCT will be sent to the patient's PCP - as well as documentation on any associated further plans of care. - Incidental findings on LDCT are the PCP's responsibility. These findings are indicated with an S finding on the LDCT Assessment. A note discussing the findings will be sent to the PCP who is then responsible for further management. - All questions answered.? Telehealth Telehealth Location of provider rendering services: practice address Location of patient: address on file Patient Identification confirmed using: Name, : Yes Telehealth method: voice only Patient verbally consented to treatment: Yes Patient verbally consented to billing insurance company: Yes Patient informed of any privacy concerns related to visit: Yes Minutes spent on Phone/Video with Pt.: 15 Coding Level of Care Code Lung Cancer Screening [id number] Diagnoses Nicotine dependence, cigarettes, uncomplicated F17.210
== END 2023-02-14 11:25 | disposition home or self-care (01) ==
LOC: HO.HMS 10:55
PROVIDERS: PCP Nurse Practitioner Family; Visit Provider Physician Assistant Medical
DX: F17.210 Nicotine dependence, cigarettes, uncomplicated (principal)
CPT/HCPCS: G0296

== ENCOUNTER 2023-02-14 15:45 | Outpatient (REF) | payer OTHER, SELFPAY ==
--- NOTE | ~2023-02-14 | CT_ITS ---
EXAMINATION: CT CHEST SCREENING CLINICAL INFORMATION: Current smoker with 45 pack year history. COMPARISON: 03/16/2022 TECHNIQUE: Multidetector volumetric CT imaging of the chest is performed without contrast using low dose technique. Additional 2D coronal and sagittal reformatted images and axial 3D maximum intensity projection (MIP) images are generated on the CT workstation. This CT examination was performed using dose optimization techniques as appropriate, variously including the following: *Automated exposure control *Adjustment of mA and/or kV according to patient size (this includes techniques or standardized protocols for targeted exams where dose is matched to indication/reason for exam; i.e. extremities or head) *Use of iterative reconstruction technique DLP: 92 mGy-cm FINDINGS: LOTTERIES AGENT: Elevated right hemidiaphragm. LUNGS: The trachea and bronchi are patent. Mild centrilobular emphysema. Atelectasis, most prominent in the right lower lobe. MEDIASTINUM: Unremarkable thyroid. No pathologic lymphadenopathy. Nonenlarged heart. No pericardial effusion. Atherosclerotic calcifications nonaneurysmal aorta. Nonenlarged pulmonary arteries. CORONARY ARTERY CALCIFICATION: Mild to moderate PLEURA: There is no pleural effusion. No pleural mass or thickening. AXILLA: No lymphadenopathy. UPPER ABDOMEN: Enlarged fatty liver OSSEOUS STRUCTURES:. No suspicious osseous lesions. CT/CT lung screening IMPRESSION: No lung lesions. Persistent elevated right hemidiaphragm with right base atelectasis. Redemonstration enlarged fatty liver. ASSESSMENT: Lung-RADS category 1: Negative RECOMMENDATION: Routine annual low-dose CT screening in 12 months.
== END 2023-02-14 15:46 | disposition home or self-care (01) ==
LOC: HO.CT 15:45
PROVIDERS: PCP Nurse Practitioner Family; Visit Provider Physician Assistant Medical
DX: Z12.2 Encounter for screening for malignant neoplasm of respiratory organs (principal); F17.210 Nicotine dependence, cigarettes, uncomplicated
CPT/HCPCS: 71271; G0296

== ENCOUNTER → 2023-02-28 10:05 | Outpatient (REF) | payer OTHER, SELFPAY ==
--- NOTE | 2023-02-28 10:11 | CA_ITS ---
Transthoracic Echocardiogram Patient (Last, First, Middle): Tom Weber W Gender: Male Date of : 1965 Age: 57 Procedure Date: 02/28/2023 Procedure Type: Transthoracic Echocardiogram Location: OP Height: 185. 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 Technically limited study 2. Normal LV ejection fraction 55-60% with impaired relaxation filling pattern 3. Limited visualization cardiac well with normal cardiac valvular Doppler 4. Upper limits normal ascending aortic size Findings Left Ventricle The left ventricle was not well visualized. Normal left ventricular cavity size. There is mildly increased left ventricular wall thickness. The left ventricular systolic function is normal. The visually estimated ejection fraction is between 55-60%. Regional wall motion abnormalities can not be excluded due to suboptimal endocardial definition. Spectral Doppler is indicative of an impaired relaxation filling pattern. E/E prime ratio is between 8 and 15 consistent with indeterminate filling pressures. Right Ventricle Normal right ventricular cavity size and systolic function. Atria The left atrium is normal in size. Interatrial shunt cannot be excluded. The right atrium was not well visualized. Aortic Valve The aortic valve was not well visualized. There is no aortic valve regurgitation. Mitral Valve The mitral valve was not well visualized. There is no mitral valve regurgitation. There is no mitral valve stenosis. Pulmonic Valve The pulmonic valve was not well visualized. Tricuspid Valve Likely normal tricuspid valve structure and function. Tricuspid regurgitation envelope is inadequate for calculation of right ventricular systolic pressure. Normal right atrial pressure. Great Vessels The pulmonary artery was not well visualized. Venous The inferior vena cava is normal in size and collapses greater than 50% with inspiration. Pericardium/Pleural The pericardium was not well visualized. Recommendations, Care & Conclusions Recommend contrast in the future to improve endocardial definition. Measurements 2D Linear Measurements IVSd: 1.48 0.6-0.9/0.6-1.0 cm LVIDd: 5.12 3.9-5.3/4.2-5.9 cm LVIDd Index: 2.08 2.4-3.2/2.2-3.1 cm/m2 LVIDs: 2.96 2.0-3.6 cm LVPWd: 1.31 0.7-1.1 cm LA Diam: 3.30 2.7-3.8/3.0-4.0 cm LAIDs Index: 1.34 1.5-2.3 cm/m2 LV Mass: 375.12 67-162/88-224 g LV Mass Index: 152.49 43-95/49-115 g/m2 LVOT Diam: 2.30 3.0+(-)1.3 cm 2D Systolic Function EF 4C: 61.00 >55% EF 2C: 58.00 >55% EF BiP: 58.00 >55% Mitral Valve MV Pk E: 0.62 MV PK A: 1.01 MV Decel Time: 399.00 E/A: 0.60 E'Lateral: 4.90 E'Medial: 5.11 E/E' Med: 12.20 E/E' Lat: 12.70 PHT: 117.00 MVA PHT: 1.88 Decel Henry: 1.56 Aortic Valve AoV Pk Sammy: 1.28 AoV Mn Sammy: 0.86 AoV VTI: 0.20 AoV Pk Grad: 7.00 Aov Mn Grad: 3.00 MICHAEL Cont.VTI: 4.21 LVOT LVOT Pk Sammy: 1.22 LVOT Mn Sammy: 0.82 LVOT VTI: 0.20 LVOT Pk Grad: 6.00 LVOT Mn Grad: 3.00 LVOT Diam: 2.30 LVOT Area: 4.15 Diastolic Function MV Pk E: 0.62 MV Pk A: 1.01 E/A: 0.60 E'Medial: 5.11 E/E' Med: 12.20 E' Laterial: 4.90 E/E' Lat: 12.70 Right Ventricle TAPSE (mm): 17.50 TVS' Sammy: 16.80 Tricuspid Valve TR Pk Sammy: 1.01 TR Pk Grad: 4.00 RA Press: 3.00 RVSP: 7.00 Great Vessels Aorta Sinus of Valsalva: 4.30 2.0-3.5 cm Ao Asc: 3.60 2.1-3.4 cm Pulmonary Valve PV Pk Sammy: 0.94 Peak PV Grad: 4.00 Updated in Other Vendor System with Status of Final Chico Rosas MD electronically signed on 03/01/2023 12:51:59 PM with status of Final
== END ==
LOC: HO.CARD 10:05
PROVIDERS: PCP Nurse Practitioner Family; Visit Provider Nurse Practitioner Family
DX: R30.0 Dysuria (principal); F10.10 Alcohol abuse, uncomplicated; M79.89 Other specified soft tissue disorders
CPT/HCPCS: 93306

== ENCOUNTER → 2023-02-28 10:11 | Outpatient (BNV) | payer OTHER, SELFPAY | PROVIDERS: PCP Nurse Practitioner Family; Visit Provider Internal Medicine Cardiovascular Disease | DX: R60.0 Localized edema (principal); M79.89 Other specified soft tissue disorders | CPT/HCPCS: 93306 ==

== ENCOUNTER 2023-03-20 09:12 | Outpatient (AMB) | payer OTHER, SELFPAY ==
[2023-03-20 09:16] VITALS: BP 138/67; PULSE 87; O2SAT 92
--- NOTE | 2023-03-20 09:16 | A.OFFVIS_ITS ---
Intake Vital Signs 03/20/23 09:16 Weight 271 lb 2.697 oz BP 138/67 Blood Pressure Location Rt brachial Position Sitting Pulse 87 Pulse Source Doppler Pulse Oximetry (%) 92 Oxygen Delivery Method Room Air Intake Visit Reasons: dk Allergies cyclobenzaprine [From FLEXERIL] Allergy (Unknown, Verified 03/20/23 09:22) RASH penicillin V Allergy (Unknown, Verified 03/20/23 09:22) anaphylaxis pineapple Allergy (Unknown, Verified 03/20/23 09:22) Unknown FADIA Inhibitors Adverse Reaction (Severe, Verified 03/20/23 09:22) Angioedema HPI kd HPI Details 57-year-old gentleman underlying obesity KD, CAD, COPD abuse, hepatitis-C, and seizure disorder with tracheostomy 05/15/2022 for angioedema with airway compromise discharged with uncuffed tracheostomy, later decannulated. Patient has been using Spiriva and albuterol MDI with reasonable control of his symptoms. He does complain today of a chronic cough productive of large amount of whitish sputum, particularly when laying down. [facility] Medical History (Updated 03/20/23 @ 09:47 by Itz Lopez MD) COPD (chronic obstructive pulmonary disease) Diabetes Nicotine dependence, cigarettes, uncomplicated Tracheostomy care Respiratory failure Diastolic CHF Seizure disorder History of TIA (transient ischemic attack) History of hepatitis C CAD (coronary artery disease) HTN (hypertension) Insulin dependent type 2 diabetes mellitus Diabetic neuropathy Restrictive airway disease KD (obstructive sleep apnea) ETOH abuse Morbid obesity Transaminitis Fatty liver History of colon polyps Obesity Microalbuminuria Foot ulcer, left Fracture of right tibia and fibula Metatarsal bone fracture Surgical History (Updated 02/03/23 @ 11:45 by Lisa Devi PA-C) History of surgery on lower extremity (~2019) History of lumbar spinal fusion History of colonoscopy (~2018) History of hernia repair History of cardiac catheterization (~2018) Family History Father CVD (cardiovascular disease) Colon cancer Mother No problems noted. Brother Liver cancer Paternal Aunt Colon cancer Social History Household Members: None and Unknown / Unable to assess Household Members Other:: Housing: Unknown / Unable to assess Do you presently have visiting nurse or other home services: No Unable to assess alcohol history related to: Unable to respond Alcohol intake: current Alcohol intake frequency: holidays/special occasions only Alcohol type: beer and hard liquor Patient Tobacco Use Status: Current everyday Tobacco user Tobacco use type: Cigarette Years Smoked: onset 18yo, 1-2ppd x 39yrsm now 1/2ppd - 50pyh Second Hand Smoke Exposure: Yes Substance Use Type: Marijuana Advance Directives Date on File: 03/20/22 service: No Current occupational status: disabled Current occupation: right handed Cognitive needs: No Hearing needs: No Vision needs: No Review of Systems Const Denies daytime sleepiness, Denies excessive sweating, Denies fatigue, Denies fever(s), Denies lethargy, Denies malaise, Denies night sweats, Denies snoring and Denies weight loss Eyes Denies blurry vision and Denies itchy eyes ENT Denies nasal congestion, Denies post nasal drip, Denies sinus pain, Denies sinus pressure and Denies other ( Thrush) Card Denies chest pain, Denies pedal edema, Denies dyspnea, Denies orthopnea and Denies paroxysmal nocturnal dyspnea Resp Reports cough, Denies hemoptysis, Reports excessive phlegm production, Denies dyspnea, Denies snoring and Denies wheezing GI Denies abdominal pain and Denies heartburn Musc Denies myalgias, Denies arthralgias and Denies joint swelling Skin/Breast Denies rash Neuro Denies memory loss and Denies seizure-like activity Psych Denies abnormal sleep pattern, Denies anxiety and Denies memory loss Endo Denies excessive sweating, Denies fatigue and Denies heat intolerance Bart/Lymph Denies easy bruising Aller/Immun Denies itchy eyes, Denies seasonal rhinorrhea and Denies wheezing Physical Exam Vital Signs: Last Vital Signs Pulse 87 03/20/23 09:16 BP 138/67 03/20/23 09:16 Pulse Ox 92 03/20/23 09:16 Oxygen Delivery Method Room Air 03/20/23 09:16 Const General: no acute distress and alert Nutritional Appearance: not obese Orientation/consciousness: Other orientation findings ( oriented) HEENT Head: Yes atraumatic Eyes General: appearance normal, both eyes and all related structures Sclerae: sclerae normal EOM: EOMs intact bilaterally Neck Neck: Yes supple Lymphatic: no lymphadenopathy noted Resp Effort & Inspection: normal respiratory effort and no use of accessory muscles Auscultation: clear to auscultation bilaterally Cardio Rate: regular rate Rhythm: regular rhythm Heart sounds: no gallops, no murmurs and no rubs Skin General skin exam: other ( warm) Extrem General: No clubbing, No cyanosis and No edema Assessment & Plan Assessment & Plan (1) Chronic cough: Code(s): R05.3 - Chronic cough Plan: Will treat with a course of Levaquin and obtain a sputum sample. (2) COPD (chronic obstructive pulmonary disease): Code(s): J44.9 - Chronic obstructive pulmonary disease, unspecified Plan: Reasonably well controlled on Spiriva and albuterol MDI. Continue current regimen. Orders: Orders Sputum Cult + Gram stain Today R05.3 - Chronic cough Medications: New levofloxacin 750 mg PO DAILY 14 tabs 0RF Refilled tiotropium bromide 2.5 mcg/actuation (Spiriva Respimat) 2 puffs inhalation QAM 4 grams 6RF 30 days J44.9 - Chronic obstructive pulmonary disease, unspecified Discontinued ciprofloxacin HCl (Cipro) do not take duloxetine while on this med Discontinued Reason: Doctor's Order 500 mg PO BID 7 days 14 tabs 0RF Coding Level of Care Code Est Pt Level 4 (71566) Diagnoses Chronic cough R05.3 COPD (chronic obstructive pulmonary disease) J44.9
== END 2023-03-20 09:39 | disposition home or self-care (01) ==
PROVIDERS: PCP Nurse Practitioner Family; Visit Provider Internal Medicine Pulmonary Disease
DX: R05.3 Chronic cough (principal); J44.9 Chronic obstructive pulmonary disease, unspecified
CPT/HCPCS: 99214

== ENCOUNTER → 2023-03-20 09:12 | Outpatient (BNVA) | payer OTHER, SELFPAY | PROVIDERS: PCP Nurse Practitioner Family; Visit Provider Internal Medicine Pulmonary Disease ==

== ENCOUNTER 2023-03-21 08:57 | Outpatient (REF) | payer OTHER, SELFPAY | END 2023-03-21 08:58 | disposition home or self-care (01) | LOC: HO.LNP 08:57 | PROVIDERS: Visit Provider Internal Medicine Pulmonary Disease | DX: R05.3 Chronic cough (principal) | CPT/HCPCS: 87070; 87205 ==

== ENCOUNTER 2023-05-25 21:54 | Emergency (ER) | payer OTHER, SELFPAY ==
--- NOTE | ~2023-05-25 | CT_ITS ---
EXAMINATION: CT HEAD WITHOUT CONTRAST CT FACIAL BONES WITHOUT CONTRAST CT CERVICAL SPINE WITHOUT CONTRAST CLINICAL INFORMATION: Fall. Struck head. Left orbital injury. Globe injury. COMPARISON: CT head from 12/04/2022. TECHNIQUE: Imaging was performed from the skull base to vertex without intravenous administration of contrast. In addition, helical noncontrast CT imaging was acquired through the cervical spine and facial bones and source images were reviewed along with axial reconstructions and sagittal and coronal MPRs. This CT examination was performed using dose optimization techniques as appropriate, variously including the following: *Automated exposure control. *Adjustment of mA and/or kV according to patient size (this includes techniques or standardized protocols for targeted exams where dose is matched to indication/reason for exam; i.e. extremities or head). *Use of iterative reconstruction technique. DLP: 1847 mGy-cm FINDINGS: Head: There is no evidence of acute intracranial hemorrhage or edematous territorial infarction. Corbett-white matter differentiation is preserved. There is no abnormal attenuation within the brain parenchyma. The ventricles are normal in morphology and size. No evidence for obstructive hydrocephalus. No abnormal mass effect or midline shift. No extra-axial fluid collections. No acute soft tissue or osseous abnormalities. Maxillofacial Bones: Mildly motion degraded exam. Moderate left-sided periorbital, preseptal edema/hematoma. The globes remain round in shape. Left-sided ectopia lentis (the left-sided lens is displaced posteriorly and laterally). No demonstrated hyperattenuating blood products within the anterior or posterior chambers of the left globe. Mild chronic depression of the left lamina preparation. No demonstrated acute osseous abnormalities of the orbits. The demonstrated retrobulbar edema. The orbital rectus musculature and optic nerve sheaths are normal in appearance. No demonstrated acute maxillofacial bone fractures. The zygomatic arches remain intact. No displaced nasal bone fracture. Minimal rightward nasal septal deviation. No evidence of mandibular or maxillary fracture. Mild anterior subluxation of the left temporomandibular joint. The right mandibular condyle remains well-seated in its respective temporal articular grooves. Mild mucosal thickening of the paranasal sinuses. The mastoid air cells and middle ear cavities are clear. No layering fluid collections. The patient is edentulous. Cervical Spine: The atlantooccipital and atlantoaxial articulations remain well aligned. Mild reversal the normal cervical lordosis centered on C5. Mild degenerative anterolisthesis of C2 on C3. Moderate degenerative retrolisthesis of C6 on C7. Otherwise, there is anatomic alignment of the vertebral bodies and posterior elements. No evidence of acute fracture or subluxation. The vertebral body heights are maintained. Advanced degenerative disc disease at C6-C7. Moderate degenerative disc disease from C4-C6 and at C7-T1. Associated disc-osteophyte complex formation from C3-C7. There appears to be at least mild spinal canal stenosis there is a left central disc extrusion at C3-C4 leading to at least moderate spinal canal stenosis at this level. There also appears to be mild to moderate spinal canal stenoses from C4-C7. Facet and uncovertebral joint arthropathy leads to osseous encroachment on the neural foramina from C3-C7. There is no prevertebral soft tissue swelling. The thyroid gland and remaining cervical soft tissues are within normal limits. The lung apices demonstrate no abnormalities. CT/CT cervical spine wo IV con IMPRESSION: 1. Left-sided periorbital edema/hematoma. Traumatic left-sided lens displacement (ectopia lentis). No demonstrated acute osseous abnormalities of the orbits. 2. No evidence of acute intracranial hemorrhage or edematous territorial infarction. 3. No evidence of acute fracture or traumatic subluxation of the cervical spine. 4. Moderate multilevel degenerative spondyloarthropathy of the cervical spine. There is a left central disc extrusion at C3-C4 leading to at least moderate spinal canal stenosis at this level. There also appear to be mild to moderate spinal canal stenoses from C4 to C7.
[2023-05-25 22:07] VITALS: BP 154/90; PULSE 102; O2SAT 96
[2023-05-25 22:08] VITALS: PULSE 87; RESP 14; TEMP 37; O2SAT 88; BMI 34.7
--- NOTE | 2023-05-25 22:16 | PC.NURSE ---
Pt arrived via ambulance from home d/t a mechanical fall. Pt reports he was getting up from nap off the couch when his knee gave out and he fell and hit the coffee table. Pt was able to get up and sit back on the couch. Pt denies any pain, LOC and thinners. only taking asprin. Pt has abrasions to L-face and nose. Significant swelling and bruising to L-eye with slightly bloody drainage. Pt recently diagnosed with COPD no home O2 but sats are 88% on room air at this time. Discussed pt case with Wayne who came to bedside to assess. Pt has scleral swelling but at this time is able to see and move eye. Pt going to CT. . Plan of care ongoing.
--- NOTE | 2023-05-25 23:23 | PC.NURSE ---
cleaned dry blood off patients face. Small laceration to forehead and bridge of nose. at bedside.
--- NOTE | 2023-05-26 00:46 | ED_ITS ---
HPI - Fall General Chief Complaint: Fall Stated Complaint: L eye pain/swelling [facility] fall, ETOH Time Seen by Provider: 05/25/23 22:05 Source: patient Mode of arrival: EMS History of Present Illness HPI Narrative: 48-year-old male with a history of COPD, hypertension, diabetes mellitus, stroke who presents emergency department for evaluation of a fall with facial injury and no loss of consciousness. Patient was sitting on a sofa and he states that he used his coffee table to help him stand. When he stood up his right knee gave out on him, he fell forward and struck his face on a coffee table. He denied loss of consciousness. He developed swelling of his left periorbital area, left upper and lower eyelids and a scleral hematoma which was bleeding therefore his family called an ambulance and had him brought to the emergency department. He states that he has having no difficulty seeing he has not seeing double. He denied headache, nausea, vomiting, neck pain. States he was not ill in any way prior to falling. He does wear glasses he states that his vision is poor but he does not have his glasses with him. Related Data Home Medications Medication Instructions Recorded Confirmed aspirin 81 mg tablet,delayed 81 mg PO DAILY 03/17/22 12/17/22 release duloxetine 30 mg capsule,delayed 1 cap PO BID 03/17/22 12/17/22 release multivitamin 1 tab PO DAILY 03/17/22 12/17/22 oxycodone 5 mg tablet 1 tab PO DAILY PRN Moderate Pain 03/17/22 12/17/22 (Scale Score 5-6) pyridoxine (vitamin B6) 50 mg 1 tab PO DAILY 03/17/22 12/17/22 tablet carbamazepine 200 mg tablet 200 mg PO BEDTIME 12/04/22 12/17/22 pregabalin 200 mg capsule 200 mg PO TID 12/04/22 12/17/22 Previous Rx's Medication Instructions Recorded metoprolol succinate 50 mg 100 mg (2 x 50 mg) PO DAILY 90 04/19/22 tablet,extended release 24 hr days #180 tabs Accu-Chek Guide Me Glucose Mtr #1 ea 06/11/22 (blood-glucose meter) lancets 30 gauge (BD Ultra-Fine II #100 ea 06/11/22 Lancets) albuterol sulfate 90 mcg/actuation 2 puff inhalation Q4-6H PRN 09/06/22 aerosol inhaler shortness of breath or wheezing #1 ea insulin glargine 100 unit/mL (3 30 unit (0.3 mL) subcut DAILY #30 10/18/22 mL) subcutaneous pen (Lantus mL Solostar U-100 Insulin) ipratropium 0.5 mg-albuterol 3 mg 3 ml inhalation Q4-6H PRN Wheezing 12/17/22 (2.5 mg base)/3 mL nebulization #90 mL soln furosemide 20 mg tablet 20 mg PO BID #180 tabs 12/30/22 Accu-Chek Guide test strips (blood #300 ea 01/17/23 sugar diagnostic) pen needle, diabetic 31 gauge x #100 ea 03/05/23/ (BD Ultra-Fine Mini Pen Needle) folic acid 1 mg tablet 1 mg PO DAILY #90 tabs 03/15/23 levofloxacin 750 mg tablet 750 mg PO DAILY #14 tabs 03/20/23 tiotropium bromide 2.5 2 puff inhalation QAM 30 days #4 03/20/23 mcg/actuation mist for inhalation grams (Spiriva Respimat) atorvastatin 40 mg tablet 40 mg PO DAILY #90 tabs 03/27/23 brimonidine 0.2 % eye drops 1 drp ophthalmic-Left TID #5 mL 05/26/23 erythromycin 5 mg/gram (0.5 %) eye 0.5 inch ophthalmic (eye) TID 7 05/26/23 ointment days #3.5 grams latanoprost 0.005 % eye drops 1 drp ophthalmic (eye) QPM #2.5 mL 05/26/23 moxifloxacin 0.5 % eye drops 1 drp ophthalmic (eye) TID 7 days 05/26/23 #3 mL Allergies Allergy/AdvReac Type Severity Reaction Status Date / Time cyclobenzaprine Allergy Unknown RASH Verified 03/20/23 09:22 [From FLEXERIL] penicillin V Allergy Unknown anaphylaxis Verified 03/20/23 09:22 pineapple Allergy Unknown Unknown Verified 03/20/23 09:22 FADIA Inhibitors AdvReac Severe Angioedema Verified 03/20/23 09:22 Review of Systems 2 Review of Systems: Yes all other systems are reviewed and are negative [facility] Past Medical History [facility] Narrative: Social history: He does smoke cigarettes. He states he does drink 1-2 beers per day. He smokes marijuana for his diabetic neuropathy pain. Medical History (Updated 05/26/23 @ 01:43 by Tanner Black MD) COPD (chronic obstructive pulmonary disease) Diabetes Nicotine dependence, cigarettes, uncomplicated Tracheostomy care Respiratory failure Diastolic CHF Seizure disorder History of TIA (transient ischemic attack) History of hepatitis C CAD (coronary artery disease) HTN (hypertension) Insulin dependent type 2 diabetes mellitus Diabetic neuropathy Restrictive airway disease KD (obstructive sleep apnea) ETOH abuse Morbid obesity Transaminitis Fatty liver History of colon polyps Obesity Microalbuminuria Foot ulcer, left Fracture of right tibia and fibula Metatarsal bone fracture Surgical History (Updated 02/03/23 @ 11:45 by Lisa Devi PA-C) History of surgery on lower extremity (~2019) History of lumbar spinal fusion History of colonoscopy (~2018) History of hernia repair History of cardiac catheterization (~2018) Family History Family History Father CVD (cardiovascular disease) Colon cancer Mother No problems noted. Brother Liver cancer Paternal Aunt Colon cancer Social History Social History Household Members: None and Unknown / Unable to assess Household Members Other:: Housing: Unknown / Unable to assess Do you presently have visiting nurse or other home services: No Unable to assess alcohol history related to: Unable to respond Alcohol intake: current Alcohol intake frequency: 0-2 drinks per day Alcohol type: beer and hard liquor Patient Tobacco Use Status: Current everyday Tobacco user Tobacco use type: Cigarette Years Smoked: onset 18yo, 1-2ppd x 37yrsm now 1/2ppd - 48pyh Smoked in Last 30 Days: Yes Second Hand Smoke Exposure: Yes Use of substances other than those prescribed or required for medical reasons: Yes Substance Use Type: Marijuana Advance Directives: Yes Advance Directives on File: Yes Advance Directives Date on File: 03/20/22 service: No Current occupational status: disabled Current occupation: right handed Cognitive needs: No Hearing needs: No Vision needs: No Physical Exam 2 Vital Signs: Vital Signs: Last Vital Signs Temp 98.6 F 05/25/23 22:08 Pulse 86 05/26/23 00:48 Resp 17 05/26/23 00:48 BP 160/71 H 05/26/23 00:48 Pulse Ox 93 05/26/23 00:48 O2 Del Method Nasal Cannula 05/26/23 00:48 O2 Flow Rate 2 05/26/23 00:48 BMI result Body Mass Index 34.7 Vital signs revealed an elevated blood pressure of 160/71. O2 saturation was 93% on 2 L of oxygen via nasal cannula Exam: General: Awake, alert in no distress, obvious left-sided facial trauma with the left upper and lower eyelid swollen shut Head: Normocephalic, no hematomas to his scalp, no scalp tenderness Eye exam: Lids: Both upper and lower lids are swollen, patient is able to open his eye and states he can see without difficulty Sclera: Circumferential scleral hematoma, Pupils: Left pupil dilated at 4 mm minimally reactive light Right pupil 2 mm, reactive to light Extraocular muscles are intact and does not have double vision Visual acuity tested without glasses left eye 70/20, right eye 70/20, both eyes 70/20 Intra-ocular pressure: Right eye 22, left eye 34 Cornea: Fluorescein dye revealed a large corneal abrasion Neck: Supple, no adenopathy Lung: breath sounds symmetric, no wheezing, rales or rhonchi Chest: symmetric movement, nontender Heart: regular rate and rhythm, normal S1, S2 no murmurs or rubs Abdomen: soft, non-tender, nondistended, normal bowel sounds Back: no vertebral tenderness, no CVAT Extremities: no deformities, moves all extremities symmetrically Neuro: Awake, alert, oriented, normal speech, cranial nerves intact, tremulous Psych: Pleasant, cooperative Medications Administered Discontinued Medications Generic Name Dose Route Start Last Admin Trade Name Freq PRN Reason Stop Dose Admin Erythromycin 1 cm 05/26/23 01:05 05/26/23 01:17 Erythromycin Base 0.5% Oph Oin 1 Gm Tube EYE-LEFT 05/26/23 01:06 1 cm ONCE ONE Administration Fluorescein Sodium 1 strip 05/25/23 22:16 05/26/23 01:17 Fluorescein Sodium Strip EYE-LEFT 05/25/23 22:17 1 strip ONCE ONE Administration Medical Decision Making Medical Decision Making MDM Narrative: 48-year-old male with a history of COPD, hypertension, diabetes mellitus, stroke who presents emergency department for evaluation of a fall with facial injury and no loss of consciousness. Patient states he has having no difficulty seeing out of his left eye, denies double vision, he denied headache, neck pain. Vital signs revealed an elevated blood pressure of 160/71, O2 saturation was 88% on room air and on 2 L was 93%. Physical examination revealed left-sided facial trauma with swelling of his left upper and lower eyelids, scleral circumferential hematoma and dilated left pupil compared to right. Left pupil was minimally reactive compared to the right pupil. Differential diagnosis: ?Includes but is not limited to skull fracture, intracranial bleed, cervical fracture, left globe injury, left corneal abrasion, left orbital fracture, left zygomatic fracture Following evaluation was ordered: CT scan of the head, cervical spine and facial bones Course: : Patient's fluorescein dye exam did reveal a large circular corneal abrasion to the left cornea. CT scan of the head and cervical spine revealed no acute fracture. CT scan of the facial bones did not reveal any acute fractures however radiologist noted traumatic left-sided lens displacement (ectopia lentis). No demonstrated acute osseous abnormalities of the orbits Patient's visual acuity was 70/20 and HI and with both eyes together-the patient does not have his glasses with him and he thinks that this is consistent with his vision without glasses Patient's intra-ocular pressure on the left eye was 22 and on the right eye was elevated at 34. Given these findings I did contact [facility] and I did talk to their on- call glass vial bending conveyor feeder Dr. Steward.. She recommended the following treatment: Erythromycin eye ointment 3 times a day for 7 days Lantonoprost 1 drop left eye at night Brimonidine 1 drop b.i.d. Moxifloxacin 1 drop q.i.d. She recommended that the patient follow-up with his glass vial bending conveyor feeder today and if the patient can not be seen then she stress that the patient should come to their emergency department and [place] so they can evaluate the patient to determine if he needs further care. Admission/Observation Consideration of admission/observation: Escalation of care including admission/observation considered Consult Healthcare Provider Management of the patient was discussed with: Journalism Internship ([facility] glass vial bending conveyor feeder) Radiology Impression Discussion of test interpretation with radiology: I have reviewed the radiologist's reading. Radiologist Impression: EXAMINATION: CT HEAD WITHOUT CONTRAST CT FACIAL BONES WITHOUT CONTRAST CT CERVICAL SPINE WITHOUT CONTRAST IMPRESSION: 1. Left-sided periorbital edema/hematoma. Traumatic left-sided lens displacement (ectopia lentis). No demonstrated acute osseous abnormalities of the orbits. 2. No evidence of acute intracranial hemorrhage or edematous territorial infarction. 3. No evidence of acute fracture or traumatic subluxation of the cervical spine. 4. Moderate multilevel degenerative spondyloarthropathy of the cervical spine. There is a left central disc extrusion at C3-C4 leading to at least moderate spinal canal stenosis at this level. There also appear to be mild to moderate spinal canal stenoses from C4 to C7. Dictated By: David Mason DO Independent Historian Clinical information obtained from an independent historian. History obtained from or confirmed by: Spouse Discharge Plan Discharge Clinical Impression: Corneal abrasion, left, Displacement of intraocular lens, initial encounter, Glaucoma associated with ocular trauma, Closed head injury Patient Disposition: Home, Self-Care Instructions: Corneal Abrasion (ED), Head Injury (ED) Additional Instructions: The CT scan of your head and neck revealed no skull fracture, bleeding in the brain or neck fracture. The CT scan of your face revealed no broken bones. The CT scan revealed that the globe (eyeball) is not broken but you did displaced the lens of your eye. You also have increased pressures in your left eye compared to the right eye and an abrasion of your cornea I did speak to the emergency department glass vial bending conveyor feeder at [facility] in [place], Dr. Steward She recommended the following treatment Erythromycin eye ointment 3 times a day for 7 days Lantonoprost 1 drop left eye at night Brimonidine 1 drop 3 times a day Moxifloxacin 1 drop 4 times a day She recommended that the patient follow-up with his glass vial bending conveyor feeder today and if the patient can not be seen then she stress that the patient should come to their emergency department and [place] so they can evaluate the patient to determine if he needs further care. recommended that you follow-up with your glass vial bending conveyor feeder today and if your glass vial bending conveyor feeder can not see you today she wants you to go to the [facility] emergency department today so that they can evaluate you. Prescriptions: New latanoprost 0.005 % drops 1 drp ophthalmic (eye) QPM Qty: 2.5 0RF brimonidine 0.2 % drops 1 drp ophthalmic-Left TID Qty: 5 0RF Rx Instructions: administer approximately 8 hours apart moxifloxacin 0.5 % drops 1 drp ophthalmic (eye) TID 7 Days Qty: 3 0RF erythromycin 5 mg/gram (0.5 %) ointment 0.5 inch ophthalmic (eye) TID 7 Days Qty: 3.5 0RF No Action metoprolol succinate 50 mg tablet extended release 24 hr 100 mg PO DAILY 90 Days Qty: 180 1RF (DME) lancets [BD Ultra-Fine II Lancets] 30 gauge misc See Rx Instructions .Route Qty: 100 0RF Rx Instructions: TID (DME) blood-glucose meter [Accu-Chek Guide Me Glucose Mtr] Misc See Rx Instructions .Route Qty: 1 0RF Rx Instructions: TID testing insulin glargine [Lantus Solostar U-100 Insulin] 100 unit/mL (3 mL) insulin pen 30 unit subcut DAILY Qty: 30 1RF furosemide 20 mg tablet 20 mg PO BID Qty: 180 1RF (DME) Accu-Chek Guide test strips Strip See Rx Instructions .Route Qty: 300 1RF Rx Instructions: tid testing (DME) pen needle, diabetic [BD Ultra-Fine Mini Pen Needle] 31 gauge x 3/16 needle See Rx Instructions .Route Qty: 100 1RF Rx Instructions: Use to inject insulin once per day folic acid 1 mg tablet 1 mg PO DAILY Qty: 90 1RF atorvastatin 40 mg tablet 40 mg PO DAILY Qty: 90 3RF multivitamin Tablet 1 tab PO DAILY pyridoxine (vitamin B6) 50 mg tablet 1 tab PO DAILY oxycodone 5 mg tablet 1 tab PO DAILY PRN (Reason: Moderate Pain (Scale Score 5-6)) duloxetine 30 mg capsule,delayed release(DR/EC) 1 cap PO BID aspirin 81 mg Tablet,Delayed Release (Dr/Ec) 81 mg PO DAILY carbamazepine 200 mg tablet 200 mg PO BEDTIME pregabalin 200 mg Capsule 200 mg PO TID ipratropium-albuterol 0.5 mg-3 mg(2.5 mg base)/3 mL solution for nebulization 3 ml inhalation Q4-6H PRN (Reason: Wheezing) Qty: 90 0RF albuterol sulfate 90 mcg/actuation HFA aerosol inhaler 2 puff inhalation Q4-6H PRN (Reason: shortness of breath or wheezing) Qty: 1 3RF levofloxacin 750 mg tablet 750 mg PO DAILY Qty: 14 0RF Spiriva Respimat 2.5 mcg/actuation mist 2 puff inhalation QAM 30 Days Qty: 4 6RF
[2023-05-26 00:48] VITALS: BP 160/71; PULSE 86; RESP 17; O2SAT 93
[2023-05-26] MEDS: Fluorescein Sodium STRIP 1 STRIP EYE-LEFT (01:17)
[2023-05-26] MEDS: Erythromycin Base 0.5% Oph Oin 1 GM TUBE 1 CM EYE-LEFT (01:17)
--- NOTE | 2023-05-26 01:28 | PC.NURSE ---
This RN administered medication into L-eye per orders.
[2023-05-26] MEDS: Bacitracin Oint 0.9 GM PACKET 1 APPL TOPICAL (01:59)
[2023-05-26 02:02] VITALS: BP 142/76; PULSE 90; RESP 20; O2SAT 91
== END 2023-05-26 02:10 | disposition home or self-care (01) ==
PROVIDERS: Emergency Provider Emergency Medicine Emergency Medical Services; PCP Nurse Practitioner Family
DX: S05.02XA Injury of conjunctiva and corneal abrasion without foreign body, left eye, initial encounter (principal); H40.32X0 Glaucoma secondary to eye trauma, left eye, stage unspecified; M54.2 Cervicalgia; R51.9 Headache, unspecified; W26.9XXA Contact with unspecified sharp object(s), initial encounter; Y93.9 Activity, unspecified; Y92.9 Unspecified place or not applicable; Y99.9 Unspecified external cause status
CPT/HCPCS: 70450; 70486; 72125; 99284

== ENCOUNTER 2023-06-06 23:14 | Inpatient (IN) | payer OTHER, SELFPAY ==
--- NOTE | 2023-06-06 | ECG_ITS ---
Test Reason : SYNCOPE Blood Pressure : / mmHG Vent. Rate : 077 BPM Atrial Rate : 077 BPM P-R Int : 196 ms QRS Dur : 114 ms QT Int : 410 ms P-R-T Axes : 038 068 039 degrees QTc Int : 463 ms Normal sinus rhythm Normal ECG When compared with ECG of 05-DEC-2022 08:21, Nonspecific T wave abnormality now evident in Inferior leads Nonspecific T wave abnormality now evident in Anterior leads Referred By: Generic ED Physician Electronically Signed By:Cameron Acosta
--- NOTE | ~2023-06-06 | XR_ITS ---
EXAMINATION: XR CHEST CLINICAL INFORMATION: Low oxygen, tachypnea COMPARISON: 12/04/2022 TECHNIQUE: Frontal view of the chest was obtained. FINDINGS: There is mild elevation of the right hemidiaphragm. There is suggestion of mild hazy opacity at the right lung base. Left lung appears well-aerated. No evidence of pneumothorax, significant pleural effusion, or pulmonary edema. The cardiomediastinal contour is unremarkable. No acute osseous findings are seen. XR/XR chest 1V IMPRESSION: Suggestion of mild hazy right basilar opacity which could reflect developing consolidation in the proper clinical setting. Short-term radiographic follow-up would be helpful.
[2023-06-06 23:24] VITALS: BP 127/76; PULSE 80; O2SAT 93; BMI 38.7
[2023-06-06 23:30] VITALS: BP 107/65; PULSE 77; RESP 13; O2SAT 90
[2023-06-06 23:33] VITALS: O2SAT 94
[2023-06-06 23:40] VITALS: O2SAT 90
[2023-06-06 23:41] LABS: MANUAL DIFF FLAG NO
[2023-06-06 23:48] LABS: Basophils Absolute Auto 0.1 X10*3/uL (0.0-0.2); Eosinophils Absolute Auto 0.1 X10*3/uL (0.0-0.4); Eosinophils Percent Auto 1.5 % (0-4); Hematocrit 40.1 % (42.0-52.0); Hemoglobin 13.5 g/dl (14.0-18.0); Imm Gran Abs Auto 0.02 X10*3/uL (0.00-0.03); Imm Gran Pct Auto 0.3 % (0.0-0.4); Lymphocytes Absolute Auto 1.2 X10*3/uL (1.2-4.9); Lymphocytes Percent Auto 20.3 % (20-40); Mean Corpuscular HGB Conc 33.7 g/dl (31.0-36.0); Mean Corpuscular Hemoglobin 36.6 pg (27.0-33.0); Mean Corpuscular Volume 108.7 fL (80.0-98.0); Mean Platelet Volume 11.2 fL (9.4-12.4); Monocytes Absolute Auto 0.9 X10*3/uL (0.1-1.2); Monocytes Percent Auto 15.9 % (2-11); NRBC Pct Auto 0.5 /100WBC (0.0-0.2); Neutrophils Absolute Auto 3.6 x10*3/uL (2.0-8.3); Red Blood Count 3.69 X10*6/uL (4.60-5.80); Red Cell Distribution Width 16.9 % (11.0-16.0); White Blood Count 5.9 X10*3/uL (4.8-10.8)
[2023-06-06 23:53] LABS: Platelet Count 78 X10*3/uL (160-400)
[2023-06-07] VITALS (7 sets, daily range): BP systolic 95–133; BP diastolic 52–77; PULSE 75–88; RESP 14–20; TEMP 35.8–36.8; O2SAT 92–96
[2023-06-07 00:01] LABS: Ethanol < 10 mg/dL
[2023-06-07 00:07] LABS: Troponin-I High Sensitivity 15.5 ng/L (<3.5-35.0)
[2023-06-07 00:16] LABS: Alanine Aminotransferase 55 U/L (0-40); Alkaline Phosphatase 159 U/L (39-117); Anion Gap 18 (12-20); Aspartate Amino Transferase 84 U/L (5-37); Blood Urea Nitrogen 19 mg/dL (9-16); Calcium 8.4 mg/dL (8.4-10.2); Carbon Dioxide 29 mmol/L (22-29); Chloride 94 mmol/L (96-108); Creatinine Clr Calc Pharmacy 50.4; Estimated Glomerular Filt Rate 33; Glucose Random 70 mg/dL (60-115); Magnesium 1.5 mg/dL (1.6-2.6); Potassium 2.4 mmol/L (3.3-5.1); Sodium 139 mmol/L (135-145); Total Protein 6.3 g/dL (6.5-8.0)
[2023-06-07 00:32] LABS: B Type Natriuretic Peptide 69 pg/mL (<100)
--- NOTE | 2023-06-07 01:06 | ED_ITS ---
HPI - General Adult General Chief complaint: Syncope Stated complaint: syncope Time Seen by Provider: 06/07/23 00:57 History of Present Illness HPI narrative: The patient is a 57-year-old male who drinks vodka. He says that he has been having frequent loose stools for the last couple of months. Over the last 24 hours he has felt very weak. Today he felt he could not lift up his arms and he came to the emergency room with his . His family says that he has fainted a few times but he denies this. The patient has had a similar problem in the past with weakness that was attributed to hypomagnesemia and hypokalemia. The patient was seen in the emergency room here 2 weeks ago following a fall. He struck his face against the coffee table. He had a head CT and a facial bone CT. He was found to have a displacement of the lens of the left eye. He was also found to have a corneal abrasion. Since discharge he has followed up with Ophthalmology in his scheduled to have surgery regarding his lens. The patient denies fever, sweats, chills.. Related Data Home Medications Medication Instructions Recorded Confirmed aspirin 81 mg tablet,delayed 81 mg PO DAILY 03/17/22 12/17/22 release duloxetine 30 mg capsule,delayed 1 cap PO BID 03/17/22 12/17/22 release multivitamin 1 tab PO DAILY 03/17/22 12/17/22 oxycodone 5 mg tablet 1 tab PO DAILY PRN Moderate Pain 03/17/22 12/17/22 (Scale Score 5-6) pyridoxine (vitamin B6) 50 mg 1 tab PO DAILY 03/17/22 12/17/22 tablet carbamazepine 200 mg tablet 200 mg PO BID 12/04/22 12/17/22 pregabalin 200 mg capsule 200 mg PO TID 12/04/22 12/17/22 ipratropium 0.5 mg-albuterol 3 mg 3 ml inhalation Q6H PRN Wheezing 06/07/23 (2.5 mg base)/3 mL nebulization soln latanoprost 0.005 % eye drops 1 drp ophthalmic (eye) BEDTIME 06/07/23 tiotropium bromide 2.5 2 puff inhalation DAILY 06/07/23 mcg/actuation mist for inhalation (Spiriva Respimat) Previous Rx's Medication Instructions Recorded metoprolol succinate 50 mg 100 mg (2 x 50 mg) PO DAILY 90 04/19/22 tablet,extended release 24 hr days #180 tabs Accu-Chek Guide Me Glucose Mtr #1 ea 06/11/22 (blood-glucose meter) lancets 30 gauge (BD Ultra-Fine II #100 ea 06/11/22 Lancets) albuterol sulfate 90 mcg/actuation 2 puff inhalation Q4-6H PRN 09/06/22 aerosol inhaler shortness of breath or wheezing #1 ea insulin glargine 100 unit/mL (3 30 unit (0.3 mL) subcut DAILY #30 10/18/22 mL) subcutaneous pen (Lantus mL Solostar U-100 Insulin) furosemide 20 mg tablet 20 mg PO BID #180 tabs 12/30/22 Accu-Chek Guide test strips (blood #300 ea 01/17/23 sugar diagnostic) pen needle, diabetic 31 gauge x #100 ea 03/05/23/ (BD Ultra-Fine Mini Pen Needle) folic acid 1 mg tablet 1 mg PO DAILY #90 tabs 03/15/23 atorvastatin 40 mg tablet 40 mg PO DAILY #90 tabs 03/27/23 brimonidine 0.2 % eye drops 1 drp ophthalmic-Left TID #5 mL 05/26/23 erythromycin 5 mg/gram (0.5 %) eye 0.5 inch ophthalmic (eye) TID 7 05/26/23 ointment days #3.5 grams Allergies Allergy/AdvReac Type Severity Reaction Status Date / Time cyclobenzaprine Allergy Unknown RASH Verified 03/20/23 09:22 [From FLEXERIL] penicillin V Allergy Unknown anaphylaxis Verified 03/20/23 09:22 pineapple Allergy Unknown Unknown Verified 03/20/23 09:22 FADIA Inhibitors AdvReac Severe Angioedema Verified 03/20/23 09:22 [facility] Past Medical History Medical History (Updated 06/07/23 @ 01:51 by George Mir MD) COPD (chronic obstructive pulmonary disease) Diabetes Nicotine dependence, cigarettes, uncomplicated Tracheostomy care Respiratory failure Diastolic CHF Seizure disorder History of TIA (transient ischemic attack) History of hepatitis C CAD (coronary artery disease) HTN (hypertension) Insulin dependent type 2 diabetes mellitus Diabetic neuropathy Restrictive airway disease KD (obstructive sleep apnea) ETOH abuse Morbid obesity Transaminitis Fatty liver History of colon polyps Obesity Microalbuminuria Foot ulcer, left Fracture of right tibia and fibula Metatarsal bone fracture Surgical History (Updated 02/03/23 @ 11:45 by Lisa Devi PA-C) History of surgery on lower extremity (~2019) History of lumbar spinal fusion History of colonoscopy (~2018) History of hernia repair History of cardiac catheterization (~2018) Family History Family History Father CVD (cardiovascular disease) Colon cancer Mother No problems noted. Brother Liver cancer Paternal Aunt Colon cancer Social History Social History Household Members: None and Unknown / Unable to assess Household Members Other:: Housing: Unknown / Unable to assess Do you presently have visiting nurse or other home services: No Unable to assess alcohol history related to: Unable to respond Alcohol intake: current Alcohol intake frequency: 0-2 drinks per day Alcohol type: beer and hard liquor Patient Tobacco Use Status: Never used Tobacco Tobacco use type: Cigarette Years Smoked: onset 18yo, 1-2ppd x 39yrsm now 1/2ppd - 50pyh Second Hand Smoke Exposure: Yes Substance Use Type: Marijuana Advance Directives: Yes Advance Directives on File: Yes Advance Directives Date on File: 03/20/22 Nutrition Risks: No Nutritional Risk service: No Current occupational status: disabled Current occupation: right handed Cognitive needs: No Hearing needs: No Vision needs: No Physical Exam ED Vital Signs: Vital Signs - 24 hr 06/06/23 23:30 06/06/23 23:33 06/06/23 23:40 Pulse Rate 77 Respiratory Rate 13 Blood Pressure 107/65 Pulse Oximetry 90 L 94 90 L Oxygen Delivery Method Room Air Nasal Cannula Room Air Oxygen Flow Rate 2 06/07/23 02:08 Pulse Rate 75 Respiratory Rate 17 Blood Pressure 95/52 L Pulse Oximetry 96 Oxygen Delivery Method Nasal Cannula Oxygen Flow Rate 2 BMI result Body Mass Index 38.7 Const Other: The patient is a very chronically ill-appearing 57-year-old. He has a very vague demeanor. He does not appear obviously acutely ill however. HENMT Other: No obvious facial asymmetry. Mucous membranes not obviously dry. Eyes Other: Pupils are round equal, conjunctivae are clear Neck Other: No JVD Resp Effort & Inspection: normal respiratory effort Auscultation: clear to auscultation bilaterally Cardio Other: The patient has regular rate and rhythm with no murmur GI Other: Abdomen is soft and nontender Skin Other: Skin was pale and dry Neuro Other: The patient is awake and alert. Face is symmetrical. Speech seems clear. Moves his extremities symmetrically. No focal findings. Extrem Other: No peripheral edema Medications Administered Generic Name Dose Route Start Last Admin Trade Name Josue PRN Reason Stop Dose Admin Folic Acid 1 mg 06/07/23 09:00 06/07/23 08:39 Folic Acid 1 Mg Tablet PO 1 mg DAILY JAMEEL Administration Ceftriaxone Sodium 1 gm/ 50 mls @ 100 mls/hr 06/07/23 07:00 06/07/23 09:11 Sodium Chloride IV 100 mls/hr Q24H JAMEEL Administration Azithromycin 500 mg/ Sodium 250 mls @ 125 mls/hr 06/07/23 07:00 06/07/23 09:11 Chloride IV 125 mls/hr Q24H JAMEEL Administration Thiamine HCl 100 mg/ Sodium 101 mls @ 202 mls/hr 06/07/23 07:10 06/07/23 09:10 Chloride IV Infused DAILY JAMEEL Infusion Insulin Human Lispro 0 unit 06/07/23 07:30 06/07/23 09:37 Insulin Lispro 100 Unit/Ml 3 Ml Vial SUBCUT Not Given QIDACHS [facility] Protocol Multivitamins/Vitamin C 1 tab 06/07/23 09:00 06/07/23 08:39 Multivitamin Tablet PO 1 tab DAILY JAMEEL Administration Pantoprazole Sodium 40 mg 06/07/23 09:00 06/07/23 08:37 Pantoprazole Sodium 40 Mg/10 Ml Vial IVPUSH 40 mg DAILY JAMEEL Administration Sodium Chloride 3 ml 06/07/23 08:00 06/07/23 09:05 0.9 % Sodium Chloride Flush 3 Ml Syringe IVFLUSH Not Given QSHIFT JAMEEL Discontinued Medications Generic Name Dose Route Start Last Admin Trade Name Josue PRN Reason Stop Dose Admin Potassium Chloride/Sodium Chloride 40 meq in 1,000 mls @ 250 mls/hr 06/07/23 01:15 06/07/23 06:23 Kcl 40 Meq In 0.9 % Sodium Chl IV 06/07/23 05:14 Infused .Q4H JAMEEL Infusion Magnesium Sulfate 2 gm in 50 mls @ 150 mls/hr 06/07/23 01:10 06/07/23 01:47 Magnesium Sulfate/H2o IV 06/07/23 01:29 Infused ONCE ONE Infusion Sodium Chloride 500 mls @ 500 mls/hr 06/07/23 03:45 06/07/23 05:07 Ns IV 06/07/23 04:44 Infused .Q1H JAMEEL Infusion Potassium Chloride 40 meq 06/07/23 01:10 06/07/23 01:25 Potassium Chloride Er 10 Meq Tablet.Er PO 06/07/23 01:11 40 meq ONCE ONE Administration Medical Decision Making Medical Decision Making [facility] Narrative: The patient is a 57-year-old male who I believe is an alcoholic. He says he drinks a lot. He presents with worsening weakness over the last several days. He also describes several weeks of chronic diarrhea. The patient's workup is significant for an acute kidney injury with a creatinine of 2.07. His baseline creatinine is closer to 1 or under 1. He also has hypokalemia with a potassium of 2.4. Magnesium was mildly low at 1.5. Patient does not seem acutely toxic or septic. However the patient is likely dehydrated. The patient was given IV fluids as well as potassium replacement, also magnesium replacement. The patient will be admitted to the hospitalist service for further care. Another issue the patient has been dealing with recently is a left eye lens displacement following a fall 2 weeks ago. Since being seen here 2 weeks ago he is followed up with Ophthalmology and is scheduled to have outpatient surgery for this in the next week or 2. I do not think this lens displacement is an issue that requires acute consideration during this hospitalization. Lab Data 06/07/23 06:41 06/07/23 06:41 Labs: Lab Results 06/06/23 Range/Units 23:36 WBC 5.9 (4.8-10.8) X10*3/uL RBC 3.69 L (4.60-5.80) X10*6/uL Hgb 13.5 L (14.0-18.0) g/dl Hct 40.1 L (42.0-52.0) % MCV 108.7 H (80.0-98.0) fL MCH 36.6 H (27.0-33.0) pg MCHC 33.7 (31.0-36.0) g/dl RDW 16.9 H (11.0-16.0) % Plt Count 78 L D (160-400) X10*3/uL MPV 11.2 (9.4-12.4) fL Immature Gran % (Auto) 0.3 (0.0-0.4) % Neut % (Auto) 61.0 (45-73) % Lymph % (Auto) 20.3 (20-40) % [place] % (Auto) 15.9 H (2-11) % Eos % (Auto) 1.5 (0-4) % Baso % (Auto) 1.0 (0-2) % Lymph # (Auto) 1.2 (1.2-4.9) X10*3/uL [place] # (Auto) 0.9 (0.1-1.2) X10*3/uL Eos # (Auto) 0.1 (0.0-0.4) X10*3/uL Baso # (Auto) 0.1 (0.0-0.2) X10*3/uL Abs Immat Gran (auto) 0.02 (0.00-0.03) X10*3/uL Absolute Neuts (auto) 3.6 (2.0-8.3) x10*3/uL Absolute Nucleated RBC 0.030 H (0.0-0.012) X10*3/uL Nucleated RBC % (auto) 0.5 H (0.0-0.2) /100WBC Sodium 139 (135-145) mmol/L Potassium 2.4 L* (3.3-5.1) mmol/L Chloride 94 L (96-108) mmol/L Carbon Dioxide 29 (22-29) mmol/L Anion Gap 18 (12-20) BUN 19 H (9-16) mg/dL Creatinine 2.07 H (0.5-1.4) mg/dL Estim Creat Clear Calc 50.4 Estimated GFR 33 Random Glucose 70 (60-115) mg/dL Calcium 8.4 D (8.4-10.2) mg/dL Magnesium 1.5 L (1.6-2.6) mg/dL Total Bilirubin 2.0 H (0.0-1.0) mg/dL AST 84 H (5-37) U/L ALT 55 H (0-40) U/L Alkaline Phosphatase 159 H (39-117) U/L Troponin I High Sens 15.5 (<3.5-35.0) ng/L B-Natriuretic Peptide 69 (<100) pg/mL Total Protein 6.3 L (6.5-8.0) g/dL Albumin 3.0 L (3.5-5.0) g/dL Ethyl Alcohol < 10 mg/dL Discharge Plan Discharge Clinical Impression: Acute kidney injury, Acute hypokalemia Patient Disposition: Admitted As Inpatient
[2023-06-07] MEDS: Magnesium Sulfate/H2O 2 GM/50 ML PIGGYBACK IV (01:25)
[2023-06-07] MEDS: Potassium Chloride ER 10 MEQ TABLET.ER 40 MEQ PO (01:25)
[2023-06-07] MEDS: KCl 40 mEq in 0.9 % Sodium Chl 40 MEQ/1,000 ML IV.SOLN 250 MEQ IV (02:17)
[2023-06-07] MEDS: 0.9 % Sodium Chloride 500 ML IV (03:58)
--- NOTE | 2023-06-07 05:26 | PC.NURSE ---
pt , A/OX3 , full code. comes in for weakness for 24 hours , family reports possible syncopal however pt denies. Pt fell 2 weeks ago and requires surgery on L Lens. Pt states has 1-2 beers a night and was placed on CIWA, currently scoring a 0 , and per pt has never withdrawn . Labs- K 2.4, Mag 1.5 ( replaced). Also showing RADHA BUN 19 and Creatinine 2.07- IVF given. Pt is alert /O however non ambulatory due to past leg fracture and reports has never been the same sense. Pt reports has to wear briefs due to frequent accidents at home. [place] cath placed in ED with success. Pt has hx of COPD and did desat in ED to 89-90 so placed on 2L for comfort and remains at 94. IV access- 20 L AC
--- NOTE | 2023-06-07 05:58 | P.HPHOSP_ITS ---
History of Present Illness Date of Service: 06/07/23 Attending physician on admission: Dhaval Israel Chief Complaint: Weakness Tom Weber is a 57 years old man with past medical history significant for COPD, hypertension, type 2 diabetes mellitus and stroke was brought to the emergency department due to weakness. HPI was obtained from ED notes as the patient is very poor historian. According to ED notes the patient has been having loose stools for the last couple of months and has been feeling weak over the last 24 hours. Seems like the patient was not able to lift up his arms and fainted a few times. Chart review: On May 26, 2023 patient visited the emergency department after he sustained a fall sustaining trauma to the left periorbital area. He was found to have a large circular corneal abrasion and head CT scan showed left-sided legs displacement (ectopia lentis). At that time ophthalmology service was contacted recommended treatment with erythromycin ointment for 7 days, latanoprost, brimonidine and doxycycline drops. In the ED, patient was found to have normal vital signs. His oxygen saturation was 88% on room air he is currently requiring 2 liters/minute supplemental oxygen via nasal cannula. Blood workup showed no leukocytosis, mild anemia, hemoglobin 13.4 and thrombocytopenia, 66. There is significant hypokalemia and hypomagnesemia, 2.4 8 and 1.5, respectively. Creatinine is 2.07. LFTs are elevated. ED tx: KCl 40 mEq IV, magnesium 2 g IV. Review of Systems 2 Review of Systems: Yes Unobtainable due to mental condition [facility] Medical History (Updated 06/07/23 @ 01:51 by George Mir MD) COPD (chronic obstructive pulmonary disease) Diabetes Nicotine dependence, cigarettes, uncomplicated Tracheostomy care Respiratory failure Diastolic CHF Seizure disorder History of TIA (transient ischemic attack) History of hepatitis C CAD (coronary artery disease) HTN (hypertension) Insulin dependent type 2 diabetes mellitus Diabetic neuropathy Restrictive airway disease KD (obstructive sleep apnea) ETOH abuse Morbid obesity Transaminitis Fatty liver History of colon polyps Obesity Microalbuminuria Foot ulcer, left Fracture of right tibia and fibula Metatarsal bone fracture Family History Father CVD (cardiovascular disease) Colon cancer Mother No problems noted. Brother Liver cancer Paternal Aunt Colon cancer Surgical History (Updated 02/03/23 @ 11:45 by Lisa Devi PA-C) History of surgery on lower extremity (~2019) History of lumbar spinal fusion History of colonoscopy (~2018) History of hernia repair History of cardiac catheterization (~2018) Social History Household Members: None and Unknown / Unable to assess Household Members Other:: Housing: Unknown / Unable to assess Do you presently have visiting nurse or other home services: No Unable to assess alcohol history related to: Unable to respond Alcohol intake: current Alcohol intake frequency: 0-2 drinks per day Alcohol type: beer and hard liquor Patient Tobacco Use Status: Never used Tobacco Tobacco use type: Cigarette Years Smoked: onset 18yo, 1-2ppd x 39yrsm now 1/2ppd - 50pyh Second Hand Smoke Exposure: Yes Substance Use Type: Marijuana Advance Directives: Yes Advance Directives on File: Yes Advance Directives Date on File: 03/20/22 Nutrition Risks: No Nutritional Risk service: No Current occupational status: disabled Current occupation: right handed Cognitive needs: No Hearing needs: No Vision needs: No Meds Allergies Allergy/AdvReac Type Severity Reaction Status Date / Time cyclobenzaprine Allergy Unknown RASH Verified 03/20/23 09:22 [From FLEXERIL] penicillin V Allergy Unknown anaphylaxis Verified 03/20/23 09:22 pineapple Allergy Unknown Unknown Verified 03/20/23 09:22 FADIA Inhibitors AdvReac Severe Angioedema Verified 03/20/23 09:22 Active Medications: Current Medications Pantoprazole Sodium (Pantoprazole Sodium 40 Mg/10 Ml Vial) 40 mg IVPUSH DAILY [facility] Sodium Chloride (0.9 % Sodium Chloride Flush 3 Ml Syringe) 3 ml IVFLUSH QSHIFT [facility] Home Medications Medication Instructions Recorded Confirmed Last Taken Type aspirin 81 mg tablet,delayed 81 mg PO DAILY 03/17/22 12/17/22 12/03/22 History release duloxetine 30 mg capsule,delayed 1 cap PO BID 03/17/22 12/17/22 12/03/22 History release multivitamin 1 tab PO DAILY 03/17/22 12/17/22 12/03/22 History oxycodone 5 mg tablet 1 tab PO DAILY PRN Moderate Pain 03/17/22 12/17/22 12/03/22 History (Scale Score 5-6) pyridoxine (vitamin B6) 50 mg 1 tab PO DAILY 03/17/22 12/17/22 12/03/22 History tablet carbamazepine 200 mg tablet 200 mg PO BEDTIME 12/04/22 12/17/22 12/03/22 History pregabalin 200 mg capsule 200 mg PO TID 12/04/22 12/17/22 12/03/22 History Physical Exam 2 Vital Signs and Narrative: Vital Signs: Last Vital Signs Temp 97.7 F 06/07/23 05:43 Pulse 86 06/07/23 05:43 Resp 20 06/07/23 05:43 BP 103/66 06/07/23 05:43 Pulse Ox 93 06/07/23 05:43 O2 Del Method Nasal Cannula 06/07/23 05:43 O2 Flow Rate 2 06/07/23 05:43 BMI result Body Mass Index 38.7 Constitutional - Awake and Alert, No apparent distress. Confused at times HEENT - pupils equally round. Normal sclerae. Dry oral mucosa Heart - S1S2, RRR, No edema Lungs - Normal lung expansion, Normal respiratory effort, No respiratory distress, CTA bilaterally Gastrointestinal - NT / ND; +BS; No rebound or guarding - No CVA tenderness Extremities - pitting edema. Musculoskeletal - Normal inspection, normal ROM Skin - Warm/Dry Neurological - Alert & oriented x3, CN II-XII in tact, 5/5 strength BUE and BLE Psychological - Appropriate affect Results Labs 06/06/23 23:36 06/06/23 23:36 Labs: Laboratory Results - last 24 hr 06/06/23 23:36 MCV 108.7 H MCH 36.6 H MCHC 33.7 RDW 16.9 H Plt Count 78 L D MPV 11.2 Immature Gran % (Auto) 0.3 Neut % (Auto) 61.0 Lymph % (Auto) 20.3 [place] % (Auto) 15.9 H Eos % (Auto) 1.5 Baso % (Auto) 1.0 Lymph # (Auto) 1.2 [place] # (Auto) 0.9 Eos # (Auto) 0.1 Baso # (Auto) 0.1 Abs Immat Gran (auto) 0.02 Absolute Neuts (auto) 3.6 Absolute Nucleated RBC 0.030 H Nucleated RBC % (auto) 0.5 H Anion Gap 18 Estim Creat Clear Calc 50.4 Estimated GFR 33 Random Glucose 70 Calcium 8.4 D Magnesium 1.5 L Total Bilirubin 2.0 H AST 84 H ALT 55 H Alkaline Phosphatase 159 H Troponin I High Sens 15.5 B-Natriuretic Peptide 69 Total Protein 6.3 L Albumin 3.0 L Ethyl Alcohol < 10 Imaging Radiologist's Impressions: Impressions Chest X-Ray 06/07/23 03:55 IMPRESSION: Suggestion of mild hazy right basilar opacity which could reflect developing consolidation in the proper clinical setting. Short-term radiographic follow-up would be helpful. Assessment and Plan (1) Acute hypokalemia: Status: Acute (2) Acute kidney injury: Status: Acute (3) Pneumonia: Status: Inactive (4) Uncontrolled diabetes mellitus: Status: Inactive Plan Tom Weber is a 57 years old man with past medical history significant for COPD, hypertension, type 2 diabetes mellitus and stroke * Acute kidney injury. Likely secondary to diarrhea. Admit to hospitalist service. Continue IV fluids. Continue to monitor renal function. Nephrology consult. * Hypoxia likely secondary pneumonia and acute exacerbation of chronic obstructive pulmonary disease. Start empiric IV antibiotic therapy with ceftriaxone and azithromycin. Supplemental oxygen via nasal cannula to keep oxygen saturation above 90%. Bronchodilator therapy. * Thrombocytopenia and anemia. Secondary to hepatic cirrhosis. Abdominal pelvis CT scan December 21 showed findings suspicious for hepatic cirrhosis. Continue to monitor hemoglobin and platelets. * Hypokalemia and hypomagnesemia. Replete as needed. Continue to monitor potassium and magnesium level. * Left lens displacement secondary to recent head trauma. Patient saw [place] chipper machine operator (3 days ago) and was scheduled for surgery in 1 week. Continue eye drops -med reconciliation by pharmacy is pending. * Type 2 diabetes mellitus. Insulin sliding scale. Diabetic diet. Continue to monitor glucose before meals at bedtime. * Diarrhea. Resolved. * Alcohol abuse. [facility] protocol. Thiamine, folic acid and multivitamins. * Essential hypertension. Continue home medications. * History of stroke. Continue home medications. * Obesity, BNP 38.7 kg/m2. Weight loss. DVT prophylaxis: SCDs (thrombocytopenia) GI prophylaxis: Protonix IV Code status: Full. Patient will need hospitalization for at least 2 midnights for RADHA, pneumonia and electrolyte imbalances treatment with IV fluids, electrolyte repletion, IV antibiotics and evaluation by subspecialty. Quality Stroke Does the patient have a stroke diagnosis?: No VTE Prior VTE?: No VTE Risk Level:: Medical - moderate - high VTE Device Contraindication: N/A - Device Ordered VTE Drug Contraindication: Treatment Not Indicated
[2023-06-07 06:50] LABS: Basophils Absolute Auto 0.1 X10*3/uL (0.0-0.2); Basophils Percent Auto 0.9 % (0-2); Eosinophils Absolute Auto 0.1 X10*3/uL (0.0-0.4); Eosinophils Percent Auto 1.9 % (0-4); Hematocrit 39.5 % (42.0-52.0); Hemoglobin 13.4 g/dl (14.0-18.0); Imm Gran Abs Auto 0.02 X10*3/uL (0.00-0.03); Imm Gran Pct Auto 0.4 % (0.0-0.4); Lymphocytes Percent Auto 17.9 % (20-40); MANUAL DIFF FLAG SCAN; Mean Corpuscular HGB Conc 33.9 g/dl (31.0-36.0); Mean Corpuscular Hemoglobin 37.1 pg (27.0-33.0); Mean Corpuscular Volume 109.4 fL (80.0-98.0); Mean Platelet Volume 10.8 fL (9.4-12.4); Monocytes Absolute Auto 1.1 X10*3/uL (0.1-1.2); Monocytes Percent Auto 20.3 % (2-11); NRBC Pct Auto 0.4 /100WBC (0.0-0.2); Neutrophils Absolute Auto 3.2 x10*3/uL (2.0-8.3); Neutrophils Percent Auto 58.6 % (45-73); Red Blood Count 3.61 X10*6/uL (4.60-5.80); Red Cell Distribution Width 17.1 % (11.0-16.0); SCAN SMEAR FLAG 1; White Blood Count 5.4 X10*3/uL (4.8-10.8)
[2023-06-07 06:51] LABS: Platelet Count 66 X10*3/uL (160-400)
[2023-06-07 06:55] LABS: Ammonia 51 umol/L (13-55)
[2023-06-07 06:59] LABS: Lactic Acid 0.8 mmol/L (0.5-2.0)
[2023-06-07 07:04] LABS: Appearance Urine Clear; Color Urine Dark Yellow; Glucose Urine UA Negative (Negative); Leukocyte Esterase Urine Small (1+) (Negative); Nitrite Urine Negative (Negative); PH 5.5 (5.0-9.0); Specific Gravity - Urine 1.015 (1.005-1.025); UMIC TRIGGER UACC YES; Urine Blood Negative (Negative); Urine Ketones 15 mg/dL (Negative); Urine Protein Trace mg/dL (Neg-Trace)
[2023-06-07 07:14] LABS: SLIDE REVIEW VERIFIED
[2023-06-07 07:18] LABS: Bacteria Urine 3+ (None Seen); RBC Urine 0-2 /HPF (0-2); UACC Culture Trigger YES
[2023-06-07 07:32] LABS: Alanine Aminotransferase 53 U/L (0-40); Albumin Level 2.8 g/dL (3.5-5.0); Alkaline Phosphatase 151 U/L (39-117); Anion Gap 17 (12-20); Aspartate Amino Transferase 87 U/L (5-37); Bilirubin Total 1.9 mg/dL (0.0-1.0); Blood Urea Nitrogen 16 mg/dL (9-16); Calcium 8.1 mg/dL (8.4-10.2); Carbon Dioxide 29 mmol/L (22-29); Chloride 98 mmol/L (96-108); Creatinine Clr Calc Pharmacy 59.9; Estimated Glomerular Filt Rate 40; Glucose Random 63 mg/dL (60-115); Phosphorus 2.9 mg/dL (2.7-4.5); Potassium 2.6 mmol/L (3.3-5.1); Sodium 141 mmol/L (135-145)
[2023-06-07 07:48] LABS: Folate 13.7 ng/mL (> or = 4.0); Vitamin B12 990 pg/mL (200-900)
[2023-06-07] MEDS: Pantoprazole Sodium 40 MG/10 ML VIAL IVPUSH (08:37)
[2023-06-07] MEDS: Thiamine HCL 100 MG in 0.9 % Sodium Chloride 100 ML 202 MG IV (08:38)
[2023-06-07] MEDS: Multivitamin TABLET 1 TAB PO (08:39)
[2023-06-07] MEDS: Folic Acid 1 MG TABLET PO (08:39)
[2023-06-07 08:44] LABS: Magnesium 1.9 mg/dL (1.6-2.6)
--- NOTE | 2023-06-07 09:10 | PM.EVENT ---
Event Note Date of Service: 06/07/23 Event Note: Seen and evaluated this morning K of 2.6 after replacement, to give more PO and IV follow BMP Continue antibiotics Start Phenobarbital protocol for alcohol abuse and hx of severe withdrawal Start RL 100cc\hr Time Spent With Patient Time: Total time managing care of this patient today ____ minutes.
[2023-06-07] MEDS: Azithromycin 500 MG in 0.9 % Sodium Chloride 250 ML 125 MG IV (09:11)
[2023-06-07] MEDS: cefTRIAXone sodium 1 GM in 0.9 % Sodium Chloride 50 ML IV (09:11)
[2023-06-07 09:39] LABS: Glucose, Whole Blood 116 mg/dL (60-115)
--- NOTE | 2023-06-07 09:40 | PC.NURSE ---
Assumed care of this pt at 0700. Pt a+o x3, he denies pain. 20g iv inserted in RAC, meds given as documented. CIWA 0. Seen by Dr. Rodriguez, no change in plan of care, pt aware.
[2023-06-07] MEDS: Potassium Chloride/H20 10 MEQ/100 ML PIGGYBACK 100 MEQ IV ×3 (10:11→21:18)
[2023-06-07] MEDS: Lactated Ringers 1,000 ML 100 ML IVCONT (10:11)
[2023-06-07] MEDS: Potassium Chloride Packet 20 MEQ PACKET 40 MEQ PO ×2 (10:13→11:50)
[2023-06-07] MEDS: PHENobarbitaL sodium 65 MG/ML VIAL 292 MG IM (10:14)
--- NOTE | 2023-06-07 10:19 | PC.NURSE ---
this nurse took over pt care at 10 am, pt a&ox3, vss, lungs course crackles throughout, rhonchi upper, non productive cough, IVF started per order, pt medicated per order, call carrizales within reach, will continue to monitor.
--- NOTE | 2023-06-07 11:07 | PC.NURSE ---
pt a&ox3, vss, rn cardiac rehab intact- nsr on monitor, pt incontinent of urine/stool- full bed change performed and pt moved to inpt bed. Pt was able with 2 person heavy assist get oob with walker and pivot to chair to change out beds, pt denies pain/discomfort, lungs have course crackles bases, rhonchi upper with non productive cough, pt on 2L NC O2 and is not home O2 dependent. brought in briefs from home that the patient wears- brief applied per pt request, call carrizales within reach, will continue to monitor
[2023-06-07 11:36] LABS: Glucose, Whole Blood 115 mg/dL (60-115)
--- NOTE | 2023-06-07 12:08 | PHA.MEDREC ---
Pharmacy Consult ? Medication Reconciliation Pharmacy has completed the medication reconciliation. Pt's reported medications.
[2023-06-07] MEDS: carBAMazepine 200 MG TABLET PO ×2 (13:43→21:18)
[2023-06-07] MEDS: DULoxetine HCl 30 MG CAPSULE.DR PO ×2 (13:43→21:17)
[2023-06-07] MEDS: PHENobarbitaL sodium 65 MG/ML VIAL 219 MG IM ×2 (13:44→16:55)
--- NOTE | 2023-06-07 13:53 | PC.NURSE ---
pt sleeping, wakes to verbal stimulus, vss, pt noted to have 115 for poc and BP was 115 systolic, this nurse contacted Dr. Rodriguez about the 20 units of lantus and 100 mg metoprolol ordered asking to hold both, provider agreed via tiger text to hold both medications and continue to monitor. Pt refusing lunch at this time as hes requesting to be allowed to sleep. quality assurance monitor chassis intact, nsr, has gone home but dropped off additional briefs for the patients use. Call carrizales within reach, fall precautions intact, will continue to monitor
[2023-06-07] MEDS: Brimonidine Tartrate 0.2% Oph 5 ML BOTTLE 1 DROP EYE-LEFT ×2 (14:27→22:45)
[2023-06-07 18:02] LABS: Glucose, Whole Blood 89 mg/dL (60-115)
--- NOTE | 2023-06-07 18:02 | PM.EVENT ---
Event Note Date of Service: 06/07/23 Event Note: Got the consult. Thank you. Detailed consult to follow. RADHA. C/W current supportive management for now.
[2023-06-07 19:56] LABS: Anion Gap 17 (12-20); Blood Urea Nitrogen 15 mg/dL (9-16); Calcium 8.2 mg/dL (8.4-10.2); Carbon Dioxide 29 mmol/L (22-29); Chloride 100 mmol/L (96-108); Creatinine Clr Calc Pharmacy 86.9; Estimated Glomerular Filt Rate > 60; Glucose Random 98 mg/dL (60-115); Magnesium 1.6 mg/dL (1.6-2.6); Potassium 2.9 mmol/L (3.3-5.1); Sodium 143 mmol/L (135-145)
[2023-06-07 20:12] LABS: Glucose, Whole Blood 112 mg/dL (60-115)
[2023-06-07] MEDS: PHENobarbitaL 15 MG TABLET 45 MG PO (21:18)
[2023-06-07] MEDS: Potassium Chloride/H20 10 MEQ/100 ML PIGGYBACK IV (22:40)
[2023-06-07] MEDS: Latanoprost 0.005 % Ophth Sol 2.5 ML DROPS 1 DROP EYE-BOTH (22:45)
[2023-06-08] MEDS: Potassium Chloride/H20 10 MEQ/100 ML PIGGYBACK IV ×2 (00:10→01:13)
[2023-06-08] MEDS: 0.9 % Sodium Chloride Flush 3 ML SYRINGE IVFLUSH ×2 (01:16→15:22)
[2023-06-08 03:19] VITALS: BP 130/66; PULSE 77; RESP 19; TEMP 36.1; O2SAT 93
[2023-06-08] MEDS: Pantoprazole Sodium 40 MG/10 ML VIAL IVPUSH ×2 (06:44→08:03)
[2023-06-08 07:05] LABS: Glucose, Whole Blood 143 mg/dL (60-115)
[2023-06-08] MEDS: cefTRIAXone sodium 1 GM in 0.9 % Sodium Chloride 50 ML IV (07:14)
[2023-06-08 07:18] VITALS: BP 133/79; PULSE 86; RESP 20; TEMP 36.1; O2SAT 92
[2023-06-08] MEDS: Thiamine HCL 100 MG in 0.9 % Sodium Chloride 100 ML 202 MG IV (08:03)
[2023-06-08] MEDS: Multivitamin TABLET 1 TAB PO (08:08)
[2023-06-08] MEDS: Insulin Glargine,Hum.rec.anlog 100 UNIT/ML 10 ML VIAL 20 UNIT SUBCUT (08:08)
[2023-06-08] MEDS: Aspirin Enteric Coated 81 MG TABLET.DR PO (08:09)
[2023-06-08] MEDS: carBAMazepine 200 MG TABLET PO ×2 (08:09→20:27)
[2023-06-08] MEDS: DULoxetine HCl 30 MG CAPSULE.DR PO ×2 (08:09→20:27)
[2023-06-08] MEDS: Folic Acid 1 MG TABLET PO ×2 (08:09)
[2023-06-08] MEDS: Metoprolol Succinate ER 100 MG TAB.ER.24H PO (08:09)
[2023-06-08] MEDS: PHENobarbitaL 15 MG TABLET 45 MG PO ×2 (08:09→20:27)
[2023-06-08] MEDS: Azithromycin 500 MG in 0.9 % Sodium Chloride 250 ML 125 MG IV (08:10)
[2023-06-08 08:44] LABS: Hematocrit 40.3 % (42.0-52.0); Hemoglobin 13.4 g/dl (14.0-18.0); Mean Corpuscular HGB Conc 33.3 g/dl (31.0-36.0); Mean Platelet Volume 11.8 fL (9.4-12.4); NRBC Pct Auto 0.5 /100WBC (0.0-0.2); Red Blood Count 3.62 X10*6/uL (4.60-5.80); Red Cell Distribution Width 17.5 % (11.0-16.0); White Blood Count 4.2 X10*3/uL (4.8-10.8)
[2023-06-08 08:45] LABS: Mean Corpuscular Volume 111.3 fL (80.0-98.0); Platelet Count 55 X10*3/uL (160-400)
[2023-06-08 09:03] LABS: Alanine Aminotransferase 53 U/L (0-40); Albumin Level 2.8 g/dL (3.5-5.0); Alkaline Phosphatase 154 U/L (39-117); Aspartate Amino Transferase 99 U/L (5-37); Bilirubin Direct 1.1 mg/dL (0.0-0.5); Bilirubin Total 1.6 mg/dL (0.0-1.0); Total Protein 6.2 g/dL (6.5-8.0)
[2023-06-08 09:07] LABS: Anion Gap 19 (12-20); Blood Urea Nitrogen 12 mg/dL (9-16); Calcium 8.4 mg/dL (8.4-10.2); Carbon Dioxide 31 mmol/L (22-29); Chloride 98 mmol/L (96-108); Creatinine Clr Calc Pharmacy 105.4; Estimated Glomerular Filt Rate > 60; Glucose Random 117 mg/dL (60-115); Potassium 3.5 mmol/L (3.3-5.1); Sodium 144 mmol/L (135-145)
[2023-06-08] MEDS: Brimonidine Tartrate 0.2% Oph 5 ML BOTTLE 1 DROP EYE-LEFT ×3 (09:18→20:28)
[2023-06-08 10:58] LABS: Glucose, Whole Blood 114 mg/dL (60-115)
--- NOTE | 2023-06-08 11:17 | MHC.CM.PN ---
Pt lives at home with his /HCP, self-care, uses a walker. Pts will transport him home at D/C. Per pts present at bedside, she would like him to get any services he is eligible to help him at home, she states she works nights and its been hard taking care of him. HCP on file and verified. DCP: return home with family support vs with new home services PCP: Dr. Lauri Gonzalez
[2023-06-08 11:21] VITALS: BP 129/80; PULSE 76; RESP 20; TEMP 36.1; O2SAT 95
--- NOTE | 2023-06-08 12:13 | P.PNIM_ITS ---
Subjective Subjective Date of Service: 06/08/23 Interval History: Seen and evaluated this morning Feels better overall weaning down O2 Cr improving Review of Systems Review of Systems: Yes all other systems are reviewed and are negative Physical Exam 2 Vital Signs: Vital Signs: Last Vital Signs Temp 97.0 F 06/08/23 11:21 Pulse 76 06/08/23 11:21 Resp 20 06/08/23 11:21 BP 129/80 06/08/23 11:21 Pulse Ox 95 06/08/23 11:21 O2 Del Method Nasal Cannula 06/08/23 11:21 O2 Flow Rate 1 06/08/23 11:21 BMI result Body Mass Index 38.7 Const: Other: Constitutional : Awake, interactive, not in distress Neck : Normal inspection, Supple Cardiovascular : RRR, no JVP, no lower extremity edema Respiratory : good bilateral air entry, no crackles, wheezes or rhonchi, on O2 supplement Gastrointestinal: soft, lax, Normal bowel sounds, Non tender Skin : Warm, Dry Neurological : Alert & oriented x3, No focal deficit Objective Data Active Medications Albuterol Sulfate (Albuterol Sulfate 90 Mcg 8 Gm Inhaler) 2 puff INHALE Q6H PRN PRN Reason: shortness of breath or wheezing Albuterol/Ipratropium (Albuterol/Iprat 2.5/0.5mg 3 Ml Ampul.Neb) 3 ml INHALE Q6H PRN PRN Reason: Wheezing Aspirin (Aspirin Enteric Coated 81 Mg Tablet.) 81 mg PO DAILY [facility] Last Admin: 06/08/23 08:09 Dose: 81 mg Documented By: JOSE Brimonidine Tartrate (Brimonidine Tartrate 0.2% Oph 5 Ml Bottle) 1 drop EYE- LEFT TID [facility] Last Admin: 06/08/23 09:18 Dose: 1 drop Documented By: JOSE Carbamazepine (Carbamazepine 200 Mg Tablet) 200 mg PO BID [facility] Last Admin: 06/08/23 08:09 Dose: 200 mg Documented By: JOSE Dextrose (Dextrose 50 % 25 Gm/50 Ml Syringe) 25 gm IVPUSH Q15M PRN; Protocol PRN Reason: per Hypoglycemia Standing Ord. Duloxetine HCl (Duloxetine Hcl 30 Mg Capsule.) 30 mg PO BID [facility] Last Admin: 06/08/23 08:09 Dose: 30 mg Documented By: JOSE Folic Acid (Folic Acid 1 Mg Tablet) 1 mg PO DAILY [facility] Last Admin: 06/08/23 08:09 Dose: 1 mg Documented By: JOSE Folic Acid (Folic Acid 1 Mg Tablet) 1 mg PO DAILY [facility] Last Admin: 06/08/23 08:09 Dose: 1 mg Documented By: JOSE Glucose (Glucose Gel 15 Gm Gel..Gram.) 15 gm PO Q15M PRN; Protocol PRN Reason: per Hypoglycemia Standing Ord. Ceftriaxone Sodium 1 gm/ (Sodium Chloride) 50 mls @ 100 mls/hr IV Q24H [facility] Last Infusion: 06/08/23 08:20 Dose: Infused Documented By: JOSE Azithromycin 500 mg/ Sodium (Chloride) 250 mls @ 125 mls/hr IV Q24H [facility] Last Infusion: 06/08/23 11:07 Dose: Infused Documented By: JOSE Thiamine HCl 100 mg/ Sodium (Chloride) 101 mls @ 202 mls/hr IV DAILY [facility] Last Infusion: 06/08/23 09:08 Dose: Infused Documented By: JOSE Insulin Glargine (Insulin Glargine,Hum.Rec.Anlog 100 Unit/Ml 10 Ml Vial) 20 unit SUBCUT DAILY [facility] Last Admin: 06/08/23 08:08 Dose: 20 unit Documented By: JOSE Insulin Human Lispro (Insulin Lispro 100 Unit/Ml 3 Ml Vial) 0 unit SUBCUT QIDACHS [facility]; Protocol Last Admin: 06/08/23 11:04 Dose: Not Given Documented By: JOSE Non-Admin Reason: No Insulin Coverage Latanoprost (Latanoprost 0.005 % Ophth Mi 2.5 Ml Drops) 1 drop EYE-BOTH BEDTIME [facility] Last Admin: 06/07/23 22:45 Dose: 1 drop Documented By: BLAKE Metoprolol Succinate (Metoprolol Succinate Er 100 Mg Tab.Er.24h) 100 mg PO DAILY [facility]; Protocol Last Admin: 06/08/23 08:09 Dose: 100 mg Documented By: JOSE Multivitamins/Vitamin C (Multivitamin Tablet) 1 tab PO DAILY [facility] Last Admin: 06/08/23 08:08 Dose: 1 tab Documented By: JOSE Oxycodone HCl (Oxycodone Hcl Immed Release 5 Mg Tablet) 5 mg PO DAILY PRN PRN Reason: Moderate Pain (Scale Score 5-6) Pantoprazole Sodium (Pantoprazole Sodium 40 Mg/10 Ml Vial) 40 mg IVPUSH DAILY [facility] Last Admin: 06/08/23 08:03 Dose: 40 mg Documented By: JOSE Pantoprazole Sodium (Pantoprazole Sodium 40 Mg/10 Ml Vial) 40 mg IVPUSH DAILY@0630 [facility] Last Admin: 06/08/23 06:44 Dose: 40 mg Documented By: BLAKE Pharmacy Consult (Consult Rx Etoh Phenob Im/Po) 1 each MISCELLANE ONCE PRN; Protocol PRN Reason: Consult order Phenobarbital (Phenobarbital 15 Mg Tablet) 45 mg PO BID [facility] Stop: 06/09/23 09:01 Last Admin: 06/08/23 08:09 Dose: 45 mg Documented By: JOSE Phenobarbital (Phenobarbital 30 Mg Tablet) 30 mg PO BID [facility] Stop: 06/11/23 09:01 Phenobarbital (Phenobarbital 30 Mg Tablet) 30 mg PO DAILY [facility] Stop: 06/13/23 09:01 Sodium Chloride (0.9 % Sodium Chloride Flush 3 Ml Syringe) 3 ml IVFLUSH QSHIFT [facility] Last Admin: 06/08/23 08:19 Dose: Not Given Documented By: JOSE Non-Admin Reason: Previously Administered Labs 06/08/23 07:09 06/08/23 07:09 Labs: Laboratory Results - last 24 hr 06/07/23 06/07/23 06/07/23 11:24 17:56 19:32 MCV MCH MCHC RDW Plt Count MPV Absolute Nucleated RBC Nucleated RBC % (auto) Anion Gap 17 Estim Creat Clear Calc 86.9 Estimated GFR > 60 POC Glucose 115 89 Random Glucose 98 Calcium 8.2 L Magnesium 1.6 Total Bilirubin Direct Bilirubin AST ALT Alkaline Phosphatase Total Protein Albumin 06/07/23 06/08/23 06/08/23 19:42 06:57 07:09 MCV 111.3 H MCH 37.0 H MCHC 33.3 RDW 17.5 H Plt Count 55 L MPV 11.8 Absolute Nucleated RBC 0.020 H Nucleated RBC % (auto) 0.5 H Anion Gap 19 Estim Creat Clear Calc 105.4 Estimated GFR > 60 POC Glucose 112 143 H Random Glucose 117 H Calcium 8.4 Magnesium Total Bilirubin 1.6 H Direct Bilirubin 1.1 H AST 99 H ALT 53 H Alkaline Phosphatase 154 H Total Protein 6.2 L Albumin 2.8 L 06/08/23 10:47 MCV MCH MCHC RDW Plt Count MPV Absolute Nucleated RBC Nucleated RBC % (auto) Anion Gap Estim Creat Clear Calc Estimated GFR POC Glucose 114 Random Glucose Calcium Magnesium Total Bilirubin Direct Bilirubin AST ALT Alkaline Phosphatase Total Protein Albumin Microbiology Microbiology Results: Microbiology 06/07/23 Unknown Urine Culture - Preliminary Urine clean catch - Urine rawls top Enterococcus/Streptococcus sp Assessment and Plan (1) Acute hypokalemia: Status: Acute (2) Acute kidney injury: Status: Acute (3) ETOH abuse: Status: Acute Plan Tom Weber is a 57 years old man with past medical history significant for COPD, hypertension, type 2 diabetes mellitus and stroke # Acute kidney injury secondary to diarrhea Improving On IV fluids monitor renal function Nephrology consult. # Hx Alcohol abuse with severe withdrawal placed on PHenobarb protocol supplements # Hypoxia secondary pneumonia and acute exacerbation of chronic obstructive pulmonary disease IV ceftriaxone and azithromycin Bronchodilator therapy Wean O2 down as tolerated # Thrombocytopenia and anemia 2/2 hepatic cirrhosis. Abdominal pelvis CT scan December 21 showed findings suspicious for hepatic cirrhosis. Continue to monitor hemoglobin and platelets. # Hypokalemia and hypomagnesemia. replacement give, monitor. # Left lens displacement secondary to recent head trauma. Patient saw [place] [employer] (3 days ago) and was scheduled for surgery in 1 week. Continue eye drops -med reconciliation by pharmacy is pending. # Type 2 diabetes mellitus. Insulin sliding scale. Diabetic diet. # Diarrhea. Resolved. # Alcohol abuse. CIWA protocol. Thiamine, folic acid and multivitamins. # Essential hypertension. Continue home medications. # History of stroke. Continue home medications. # Obesity, BNP 38.7 kg/m2. Weight loss. DVT prophylaxis: SCDs (thrombocytopenia) Code status: Full. Patient will need hospitalization overnight for RADHA, pneumonia and electrolyte imbalances treatment with IV fluids, electrolyte repletion, IV antibiotics pending clinical improvement Quality Stroke Does the patient have a stroke diagnosis?: No VTE Prior VTE?: No VTE Risk Level:: Medical - moderate - high VTE Device Contraindication: N/A - Device Ordered VTE Drug Contraindication: Treatment Not Indicated
[2023-06-08 15:16] VITALS: BP 118/75; PULSE 77; RESP 20; TEMP 36.1; O2SAT 91
[2023-06-08 16:07] LABS: Glucose, Whole Blood 159 mg/dL (60-115)
[2023-06-08 19:05] VITALS: BP 125/64; PULSE 77; RESP 20; TEMP 36.7; O2SAT 90
[2023-06-08 19:59] LABS: Glucose, Whole Blood 171 mg/dL (60-115)
[2023-06-08] MEDS: Latanoprost 0.005 % Ophth Sol 2.5 ML DROPS 1 DROP EYE-BOTH (20:27)
[2023-06-08] MEDS: Insulin Lispro 100 UNIT/ML 3 ML VIAL SUBCUT (20:27)
[2023-06-08 23:58] VITALS: BP 132/70; PULSE 78; RESP 20; TEMP 36.1; O2SAT 95
[2023-06-09] MEDS: 0.9 % Sodium Chloride Flush 3 ML SYRINGE IVFLUSH ×2 (00:46→09:20)
[2023-06-09 03:13] VITALS: BP 98/52; PULSE 80; RESP 20; TEMP 36.2; O2SAT 94
[2023-06-09 05:02] LABS: OBS Int Ctl Valid YES; OBS1 POSITIVE (NEGATIVE)
[2023-06-09 05:44] LABS: Leukocytes Stool Qualitative NEGATIVE (NEGATIVE)
[2023-06-09] MEDS: Pantoprazole Sodium 40 MG/10 ML VIAL IVPUSH ×2 (05:48→09:23)
[2023-06-09] MEDS: Azithromycin 500 MG in 0.9 % Sodium Chloride 250 ML 125 MG IV (06:19)
[2023-06-09 07:19] LABS: Glucose, Whole Blood 116 mg/dL (60-115)
[2023-06-09 07:25] LABS: Blood Urea Nitrogen 7 mg/dL (9-16); Calcium 8.3 mg/dL (8.4-10.2); Creatinine Clr Calc Pharmacy 139.1; Estimated Glomerular Filt Rate > 60; Glucose Random 110 mg/dL (60-115)
[2023-06-09 07:49] VITALS: BP 119/86; PULSE 70; RESP 20; TEMP 36.4; O2SAT 97
[2023-06-09 07:52] LABS: Anion Gap 17 (12-20); Carbon Dioxide 32 mmol/L (22-29); Chloride 99 mmol/L (96-108); Potassium 2.9 mmol/L (3.3-5.1); Sodium 145 mmol/L (135-145)
[2023-06-09] MEDS: PHENobarbitaL 15 MG TABLET 45 MG PO (09:18)
[2023-06-09] MEDS: Metoprolol Succinate ER 100 MG TAB.ER.24H PO (09:19)
[2023-06-09] MEDS: Aspirin Enteric Coated 81 MG TABLET.DR PO (09:20)
[2023-06-09] MEDS: carBAMazepine 200 MG TABLET PO (09:20)
[2023-06-09] MEDS: cefTRIAXone sodium 1 GM in 0.9 % Sodium Chloride 50 ML IV (09:20)
[2023-06-09] MEDS: Multivitamin TABLET 1 TAB PO (09:20)
[2023-06-09] MEDS: DULoxetine HCl 30 MG CAPSULE.DR PO (09:20)
[2023-06-09] MEDS: Folic Acid 1 MG TABLET PO ×3 (09:21→09:22)
[2023-06-09] MEDS: Insulin Glargine,Hum.rec.anlog 100 UNIT/ML 10 ML VIAL 20 UNIT SUBCUT (09:22)
[2023-06-09] MEDS: Thiamine HCL 100 MG in 0.9 % Sodium Chloride 100 ML 202 MG IV (09:23)
[2023-06-09] MEDS: Brimonidine Tartrate 0.2% Oph 5 ML BOTTLE 1 DROP EYE-LEFT (09:31)
[2023-06-09] MEDS: Potassium Chloride Packet 20 MEQ PACKET 40 MEQ PO ×2 (09:38→11:50)
[2023-06-09] MEDS: Potassium Chloride/H20 10 MEQ/100 ML PIGGYBACK 100 MEQ IV (09:38)
--- NOTE | 2023-06-09 10:23 | PM.CNNEP ---
History of Present Illness Reason for Consult Consult date: 06/11/23 Reason for consult: RADHA Chief Complaint Chief complaint: acute kidney injury History of Present Illness Narrative: 57 years old man with past medical history significant for COPD, hypertension, type 2 diabetes mellitus and stroke was brought to the emergency department due to weakness. HPI was obtained from ED notes as the patient is very poor historian. According to ED notes the patient has been having loose stools for the last couple of months and has been feeling weak over the last 24 hours. Seems like the patient was not able to lift up his arms and fainted a few times. admitted with severe hyperkalemia and RADHA During the course of hospitalization RADHA has resolved with IV hydration. Review of Systems Constitutional: Denies anorexia, Denies fever(s) and Denies weakness Eyes: Denies blurry vision Cardiovascular: Denies no additional cardiovascular complaints and Denies dyspnea Respiratory: Reports no additional respiratory complaints, Reports cough and Denies dyspnea Gastrointestinal: Denies melena Genitourinary: Denies hematuria Musculoskeletal: Denies tingling Skin/Breast: Denies rash Denies focal weakness, Denies tingling, Denies tremor(s) and Denies weakness PMF Past Medical History Medical History (Updated 06/09/23 @ 11:15 by Antoine Rodriguez MD) Pneumonia COPD (chronic obstructive pulmonary disease) Diabetes Nicotine dependence, cigarettes, uncomplicated Tracheostomy care Respiratory failure Diastolic CHF Seizure disorder History of TIA (transient ischemic attack) History of hepatitis C CAD (coronary artery disease) HTN (hypertension) Insulin dependent type 2 diabetes mellitus Diabetic neuropathy Restrictive airway disease KD (obstructive sleep apnea) ETOH abuse Morbid obesity Transaminitis Fatty liver History of colon polyps Obesity Microalbuminuria Foot ulcer, left Fracture of right tibia and fibula Metatarsal bone fracture Family History Family History Father CVD (cardiovascular disease) Colon cancer Mother No problems noted. Brother Liver cancer Paternal Aunt Colon cancer Surgical History Surgical History (Updated 02/03/23 @ 11:45 by Lisa Devi PA-C) History of surgery on lower extremity (~2019) History of lumbar spinal fusion History of colonoscopy (~2018) History of hernia repair History of cardiac catheterization (~2018) Social History Social History Household Members: None and Unknown / Unable to assess Household Members Other:: Housing: Unknown / Unable to assess Do you presently have visiting nurse or other home services: No Unable to assess alcohol history related to: Unable to respond Alcohol intake: current Alcohol intake frequency: 0-2 drinks per day Alcohol type: beer and hard liquor Patient Tobacco Use Status: Current everyday Tobacco user Tobacco use type: Cigarette Years Smoked: onset 18yo, 1-2ppd x 37yrsm now 1/2ppd - 50pyh Second Hand Smoke Exposure: Yes Substance Use Type: Marijuana Advance Directives Date on File: 03/20/22 service: No Current occupational status: disabled Current occupation: right handed Cognitive needs: No Hearing needs: No Vision needs: No Meds Allergies Allergy/AdvReac Type Severity Reaction Status Date / Time cyclobenzaprine Allergy Unknown RASH Verified 03/20/23 09:22 [From FLEXERIL] penicillin V Allergy Unknown anaphylaxis Verified 03/20/23 09:22 pineapple Allergy Unknown Unknown Verified 03/20/23 09:22 FADIA Inhibitors AdvReac Severe Angioedema Verified 03/20/23 09:22 Active Medications: Current Medications Albuterol Sulfate (Albuterol Sulfate 90 Mcg 8 Gm Inhaler) 2 puff INHALE Q6H PRN PRN Reason: shortness of breath or wheezing Albuterol/Ipratropium (Albuterol/Iprat 2.5/0.5mg 3 Ml Ampul.Neb) 3 ml INHALE Q6H PRN PRN Reason: Wheezing Aspirin (Aspirin Enteric Coated 81 Mg Tablet.) 81 mg PO DAILY [facility] Last Admin: 06/09/23 09:20 Dose: 81 mg Brimonidine Tartrate (Brimonidine Tartrate 0.2% Oph 5 Ml Bottle) 1 drop EYE-LEFT TID [facility] Last Admin: 06/09/23 09:31 Dose: 1 drop Carbamazepine (Carbamazepine 200 Mg Tablet) 200 mg PO BID [facility] Last Admin: 06/09/23 09:20 Dose: 200 mg Dextrose (Dextrose 50 % 25 Gm/50 Ml Syringe) 25 gm IVPUSH Q15M PRN; Protocol PRN Reason: per Hypoglycemia Standing Ord. Duloxetine HCl (Duloxetine Hcl 30 Mg Capsule.) 30 mg PO BID [facility] Last Admin: 06/09/23 09:20 Dose: 30 mg Folic Acid (Folic Acid 1 Mg Tablet) 1 mg PO DAILY [facility] Last Admin: 06/09/23 09:22 Dose: 1 mg Folic Acid (Folic Acid 1 Mg Tablet) 1 mg PO DAILY [facility] Last Admin: 06/09/23 09:22 Dose: 1 mg Glucose (Glucose Gel 15 Gm Gel..Gram.) 15 gm PO Q15M PRN; Protocol PRN Reason: per Hypoglycemia Standing Ord. Ceftriaxone Sodium 1 gm/ (Sodium Chloride) 50 mls @ 100 mls/hr IV Q24H [facility] Last Infusion: 06/09/23 09:50 Dose: Infused Azithromycin 500 mg/ Sodium (Chloride) 250 mls @ 125 mls/hr IV Q24H [facility] Last Infusion: 06/09/23 08:19 Dose: Infused Thiamine HCl 100 mg/ Sodium (Chloride) 101 mls @ 202 mls/hr IV DAILY [facility] Last Infusion: 06/09/23 09:53 Dose: Infused Insulin Glargine (Insulin Glargine,Hum.Rec.Anlog 100 Unit/Ml 10 Ml Vial) 20 unit SUBCUT DAILY [facility] Last Admin: 06/09/23 09:22 Dose: 20 unit Insulin Human Lispro (Insulin Lispro 100 Unit/Ml 3 Ml Vial) 0 unit SUBCUT QIDACHS [facility]; Protocol Last Admin: 06/09/23 09:01 Dose: Not Given Latanoprost (Latanoprost 0.005 % Ophth Mi 2.5 Ml Drops) 1 drop EYE-BOTH BEDTIME [facility] Last Admin: 06/08/23 20:27 Dose: 1 drop Metoprolol Succinate (Metoprolol Succinate Er 100 Mg Tab.Er.24h) 100 mg PO DAILY [facility]; Protocol Last Admin: 06/09/23 09:19 Dose: 100 mg Multivitamins/Vitamin C (Multivitamin Tablet) 1 tab PO DAILY [facility] Last Admin: 06/09/23 09:20 Dose: 1 tab Oxycodone HCl (Oxycodone Hcl Immed Release 5 Mg Tablet) 5 mg PO DAILY PRN PRN Reason: Moderate Pain (Scale Score 5-6) Pantoprazole Sodium (Pantoprazole Sodium 40 Mg/10 Ml Vial) 40 mg IVPUSH DAILY [facility] Last Admin: 06/09/23 09:23 Dose: 40 mg Pantoprazole Sodium (Pantoprazole Sodium 40 Mg/10 Ml Vial) 40 mg IVPUSH DAILY@0630 [facility] Last Admin: 06/09/23 05:48 Dose: 40 mg Pharmacy Consult (Consult Rx Etoh Phenob Im/Po) 1 each MISCELLANE ONCE PRN; Protocol PRN Reason: Consult order Phenobarbital (Phenobarbital 30 Mg Tablet) 30 mg PO BID [facility] Stop: 06/11/23 09:01 Phenobarbital (Phenobarbital 30 Mg Tablet) 30 mg PO DAILY [facility] Stop: 06/13/23 09:01 Potassium Chloride (Potassium Chloride Packet 20 Meq Packet) 40 meq PO Q2H [facility] Stop: 06/09/23 11:01 Last Admin: 06/09/23 09:38 Dose: 40 meq Sodium Chloride (0.9 % Sodium Chloride Flush 3 Ml Syringe) 3 ml IVFLUSH QSHIFT [facility] Last Admin: 06/09/23 09:20 Dose: 3 ml Home Medications Medication Instructions Recorded Confirmed Last Taken Type aspirin 81 mg tablet,delayed 81 mg PO DAILY 03/17/22 06/07/23 06/06/23 History release duloxetine 30 mg capsule,delayed 1 cap PO BID 03/17/22 06/07/23 06/06/23 History release multivitamin 1 tab PO DAILY 03/17/22 06/07/23 06/06/23 History oxycodone 5 mg tablet 1 tab PO DAILY PRN Moderate Pain 03/17/22 06/07/23 12/03/22 History (Scale Score 5-6) carbamazepine 200 mg tablet 200 mg PO BID 12/04/22 06/07/23 06/06/23 History pregabalin 200 mg capsule 200 mg PO TID 12/04/22 06/07/23 06/06/23 History albuterol sulfate 90 mcg/actuation 2 puff inhalation Q6H PRN 06/07/23 06/07/23 Unknown History aerosol inhaler shortness of breath or wheezing ipratropium 0.5 mg-albuterol 3 mg 3 ml inhalation Q6H PRN Wheezing 06/07/23 06/07/23 Unknown History (2.5 mg base)/3 mL nebulization soln latanoprost 0.005 % eye drops 1 drp ophthalmic (eye) BEDTIME 06/07/23 06/07/23 06/06/23 History lisinopril 10 mg tablet 10 mg PO DAILY 06/07/23 06/07/23 06/06/23 History Physical Exam Vital Signs: Last Vital Signs Temp 97.6 F 06/09/23 07:49 Pulse 70 06/09/23 07:49 Resp 20 06/09/23 07:49 BP 119/86 06/09/23 07:49 Pulse Ox 97 06/09/23 07:49 O2 Del Method Nasal Cannula 06/09/23 07:49 O2 Flow Rate 2 06/09/23 07:49 FiO2 98 06/09/23 03:13 BMI result Body Mass Index 38.7 Awake. Comfortable. Neck is supple. Mucosa moist. Lungs bilateral scattered rhonchi. Heart S1-S2 heard no gallop. Abdomen soft. Extremities no edema. No involuntary movements. No myoclonus. Results Lab Results 06/08/23 07:09 06/09/23 06:16 Lab results: Chemistry 06/06/23 06/07/23 06/07/23 23:36 06:41 19:32 Sodium 139 141 143 Potassium 2.4 L* 2.6 L* 2.9 L* Carbon Dioxide 29 29 29 BUN 19 H 16 15 Creatinine 2.07 H 1.74 H 1.20 Calcium 8.4 D 8.1 L 8.2 L Phosphorus 2.9 06/08/23 06/09/23 07:09 06:16 Sodium 144 145 Potassium 3.5 D 2.9 L* Carbon Dioxide 31 H 32 H BUN 12 7 L Creatinine 0.99 0.75 Calcium 8.4 8.3 L Phosphorus Hematology 06/06/23 06/07/23 06/08/23 23:36 06:41 07:09 WBC 5.9 5.4 4.2 L Hgb 13.5 L 13.4 L 13.4 L Plt Count 78 L D 66 L 55 L Urinalysis 06/07/23 06:42 Urine Color Dark Yellow Urine Appearance Clear Urine pH 5.5 Ur Specific [place] 1.015 Urine Protein Trace Urine Glucose (UA) Negative Urine Ketones 15 Urine Blood Negative Urine Nitrite Negative Ur Leukocyte Esterase Small (1+) H Urine RBC 0-2 Urine WBC 11-20 H Ur Squamous Epith Cells 3-5 Hyaline Casts 3-5 Assessment and Plan (1) Acute hypokalemia: Status: Acute (2) Acute kidney injury: Status: Acute Plan RADHA due to dehydration. RADHA has resolved after fluid repletion. Renal function is back to baseline. Hypokalemia due to GI losses secondary to diarrhea. Replace potassium orally. Procedures Date of Service Date of Service: 06/11/23
--- NOTE | 2023-06-09 11:12 | PM.DS ---
DS: Providers Provider Date of Service: 06/09/23 Date of admission: 06/07/23 03:40 Primary care physician: MONTY Gómez Consults: 06/07/23 03:45 Consult to Nephrology Routine Consulting Provider: [facility] Reason for consultation: RADHA Has provider been notified: No 06/08/23 06:30 Consult to Wound Care Routine Reason for consultation: redness to groin and buttock , open area to buttock DS: Diagnosis Discharge Diagnosis (1) Acute hypokalemia: Status: Acute (2) Acute kidney injury: Status: Acute (3) Pneumonia: Status: Inactive (4) ETOH abuse: Status: Acute DS: Summary Hospital Course Hospital Course: Admission note HPI Tom Weber is a 57 years old man with past medical history significant for COPD, hypertension, type 2 diabetes mellitus and stroke was brought to the emergency department due to weakness. HPI was obtained from ED notes as the patient is very poor historian. According to ED notes the patient has been having loose stools for the last couple of months and has been feeling weak over the last 24 hours. Seems like the patient was not able to lift up his arms and fainted a few times. Chart review: On May 26, 2023 patient visited the emergency department after he sustained a fall sustaining trauma to the left periorbital area. He was found to have a large circular corneal abrasion and head CT scan showed left-sided legs displacement (ectopia lentis). At that time ophthalmology service was contacted recommended treatment with erythromycin ointment for 7 days, latanoprost, brimonidine and doxycycline drops. In the ED, patient was found to have normal vital signs. His oxygen saturation was 88% on room air he is currently requiring 2 liters/minute supplemental oxygen via nasal cannula. Blood workup showed no leukocytosis, mild anemia, hemoglobin 13.4 and thrombocytopenia, 66. There is significant hypokalemia and hypomagnesemia, 2.4 8 and 1.5, respectively. Creatinine is 2.07. LFTs are elevated. ED tx: KCl 40 mEq IV, magnesium 2 g IV. Hospital course # Acute kidney injury secondary to diarrhea on admission improved back to his baseline Creatinine level with IV fluids supplement as he was followed by nephrology team # Hx Alcohol abuse with severe withdrawal placed on PHenobarb protocol with good tolerance as he received supplements as well. noovert withdrawal seen this admission. # Hypoxia secondary pneumonia and acute exacerbation of chronic obstructive pulmonary disease. Treated with IV antibiotics of IV ceftriaxone and azithromycin along with Bronchodilator therapy as he was Weaned O2 down to room air and was able to ambulate on RA with no reported dyspnea. # Thrombocytopenia and anemia from hepatic cirrhosis. Abdominal pelvis CT scan December 21 showed findings suspicious for hepatic cirrhosis. To be followed as outpatient with PCP # Hypokalemia and hypomagnesemia. resolved after replacement given # Left lens displacement secondary to recent head trauma. Patient saw [place] composition instructor (3 days ago) and was scheduled for surgery in 1 week. Continue eye drops -med reconciliation by pharmacy is pending. # Evaluated by PT team who recommended short term rehab but the patient prefers to go home with home PT. Continue Azithromycin and Ceftin as prescribed We advise you complete abstinence from Alcohol We encourage weight loss Time Attestation Discharge Coordination Time (in mins): 33 Quality: Safe Use of Opioids Does Pt have an Active Cancer Diagnosis on the Problem List?: No Quality: Stroke Does the patient have a stroke diagnosis?: No Physical Exam Vital Signs: Vital Signs: Last Vital Signs Temp 97.6 F 06/09/23 07:49 Pulse 70 06/09/23 07:49 Resp 20 06/09/23 07:49 BP 119/86 06/09/23 07:49 Pulse Ox 97 06/09/23 07:49 O2 Del Method Nasal Cannula 06/09/23 07:49 O2 Flow Rate 2 06/09/23 07:49 FiO2 98 06/09/23 03:13 BMI result Body Mass Index 38.7 Const: Other: Constitutional : Awake, interactive, not in distress Neck : Normal inspection, Supple Cardiovascular : RRR, no JVP, no lower extremity edema Respiratory : good bilateral air entry, no crackles, wheezes or rhonchi Gastrointestinal: soft, lax, Normal bowel sounds, Non tender Skin : Warm, Dry Neurological : Alert & oriented x3, No focal deficit DS: Data Data Completed and Pending Completed studies during hospitalization [Text1]: Procedures Bypass Trachea to Cutaneous with Tracheostomy Device, Percutaneous Approach (05/15/22) Change Tracheostomy Device in Trachea, External Approach (05/15/22) Detoxification Services for Substance Abuse Treatment (12/04/22) Insertion of Endotracheal Airway into Trachea, Via Natural or Artificial Opening (12/04/22) Respiratory Ventilation, 24-96 Consecutive Hours (12/04/22) Respiratory Ventilation, Greater than 96 Consecutive Hours (05/15/22) Transfusion of Nonautologous Frozen Plasma into Peripheral Vein, Percutaneous Approach (12/04/22) Labs on day of discharge: Laboratory Results - last 24 hr 06/08/23 06/08/23 06/09/23 16:01 19:52 04:40 Hold Purple Top Sodium Potassium Chloride Carbon Dioxide Anion Gap BUN Creatinine Estim Creat Clear Calc Estimated GFR POC Glucose 159 H 171 H Random Glucose Calcium Stool Occult Blood POSITIVE Stool Leukocytes, Qual NEGATIVE 06/09/23 06/09/23 06:16 07:11 Hold Purple Top SEE NOTE Sodium 145 Potassium 2.9 L* Chloride 99 Carbon Dioxide 32 H Anion Gap 17 BUN 7 L Creatinine 0.75 Estim Creat Clear Calc 139.1 Estimated GFR > 60 POC Glucose 116 H Random Glucose 110 Calcium 8.3 L Stool Occult Blood Stool Leukocytes, Qual Imaging Chest x-ray: Radiologist's impression: ITS Impressions Chest X-Ray 06/07/23 03:55 IMPRESSION: Suggestion of mild hazy right basilar opacity which could reflect developing consolidation in the proper clinical setting. Short-term radiographic follow-up would be helpful. Discharge Plan Discharge Anticipated Discharge Date/Time: 06/09/23 10:59 Patient Disposition: Home Health Service Discharge Diagnosis: Kidney injury low electrolytes Alcohol abuse and withdrawal Referrals: Lauri Gonzalez, [employer]ST-BC [Primary Care Provider] - 1 Week Discharge Medications: New azithromycin 500 mg tablet 500 mg PO DAILY 5 Days Qty: 5 0RF cefuroxime axetil 500 mg tablet 500 mg PO BID Qty: 10 0RF Continued metoprolol succinate 50 mg tablet extended release 24 hr 100 mg PO DAILY 90 Days Qty: 180 1RF (DME) lancets [BD Ultra-Fine II Lancets] 30 gauge misc See Rx Instructions .Route Qty: 100 0RF Rx Instructions: TID (DME) blood-glucose meter [Accu-Chek Guide Me Glucose Mtr] Misc See Rx Instructions .Route Qty: 1 0RF Rx Instructions: TID testing insulin glargine [Lantus Solostar U-100 Insulin] 100 unit/mL (3 mL) insulin pen 30 unit subcut DAILY Qty: 30 1RF furosemide 20 mg tablet 20 mg PO BID Qty: 180 1RF (DME) Accu-Chek Guide test strips Strip See Rx Instructions .Route Qty: 300 1RF Rx Instructions: tid testing (DME) pen needle, diabetic [BD Ultra-Fine Mini Pen Needle] 31 gauge x 3/16 needle See Rx Instructions .Route Qty: 100 1RF Rx Instructions: Use to inject insulin once per day folic acid 1 mg tablet 1 mg PO DAILY Qty: 90 1RF atorvastatin 40 mg tablet 40 mg PO DAILY Qty: 90 3RF multivitamin Tablet 1 tab PO DAILY oxycodone 5 mg tablet 1 tab PO DAILY PRN (Reason: Moderate Pain (Scale Score 5-6)) duloxetine 30 mg capsule,delayed release(DR/EC) 1 cap PO BID aspirin 81 mg Tablet,Delayed Release (Dr/Ec) 81 mg PO DAILY carbamazepine 200 mg tablet 200 mg PO BID pregabalin 200 mg Capsule 200 mg PO TID brimonidine 0.2 % drops 1 drp ophthalmic-Left TID Qty: 5 0RF Rx Instructions: administer approximately 8 hours apart latanoprost 0.005 % drops 1 drp ophthalmic (eye) BEDTIME ipratropium-albuterol 0.5 mg-3 mg(2.5 mg base)/3 mL solution for nebulization 3 ml inhalation Q6H PRN (Reason: Wheezing) lisinopril 10 mg tablet 10 mg PO DAILY albuterol sulfate 90 mcg/actuation HFA aerosol inhaler 2 puff inhalation Q6H PRN (Reason: shortness of breath or wheezing) Discharge Orders: Discharge Order (Routine); Ordered 06/09/23 Ordered By: Antoine Rodriguez Diet: Advance to usual diet Activity on Discharge: As tolerated Stand Alone Forms: Patient Portal Discharge page Care Plan Goals: Read below Health Concerns: Read below Plan of Treatment: Read below Assessment: You were admitted to the hospital with evidence of acute kidney injury from diarrhea. found to have an evidence of pneumonia treated with IV antibiotics as your kidney function improved back to baseline. Continue Azithromycin and Ceftin as prescribed We advise you complete abstinence from Alcohol We encourage weight loss
[2023-06-09 11:31] LABS: Glucose, Whole Blood 212 mg/dL (60-115)
[2023-06-09] MEDS: Insulin Lispro 100 UNIT/ML 3 ML VIAL SUBCUT (11:50)
[2023-06-09 12:00] VITALS: BP 125/82; PULSE 77; RESP 20; TEMP 36.2; O2SAT 95
--- NOTE | 2023-06-09 12:37 | MHC.CM.PN ---
Addendum entered by Preethi Ureña 06/09/23 13:38: Pt has been medically cleared for DC, he will go home via his to transport. If VNA accepts, CM will notify pt. Original Note: CM has put out referrals to VNA's, none accepting at this time, due to lack of availability or not accepting his insurance. pt and are aware, still waiting to hear back from some VNA's. referral submitted to [facility], pt is under age for services (57), EC rep educated pt and on applying for [facility], frail elder waiver to apply for services.
--- NOTE | 2023-06-09 13:31 | P.F2F_ITS ---
Service Date Service Date: 06/09/23 Encounter Date of encounter: 06/09/23 Reasons for Services Signs and symptoms assessed: physical deconditioning Reason for physical therapy: home safety and mobility and therapeutic exercises Homebound: Leaving the home is medically contraindicated at this time without the asist of a device and/or another person due th the listed conditions above and below. Reason homebound: unsteady gait / fall risk Certification: Based on the above findings, I certify that this patient is confined to the home and needs intermittent custodial care, physical therapy and/or speech therapy, or continues to need occupational therapy. The patient is under my care, and I have initiated the establishment of the plan of care. The patient will be followed by a physician who will periodically review the plan of care. Time Spent With Patient Time: Total time managing care of this patient today ____ minutes.
== END 2023-06-09 14:12 | disposition home health service (06) | DRG 190 ==
LOC: HO.ED 06-07 01:51 → HO.EDOVER 06-07 03:48 → HO.IMC 06-07 14:50
PROVIDERS: Admitting Provider Internal Medicine; Emergency Provider Emergency Medicine; PCP Nurse Practitioner Family; Visit Provider Student in an Organized Health Care Education/Training Program
DX: J44.0 Chronic obstructive pulmonary disease with (acute) lower respiratory infection (principal); J18.9 Pneumonia, unspecified organism; N17.9 Acute kidney failure, unspecified; I25.10 Atherosclerotic heart disease of native coronary artery without angina pectoris; J44.1 Chronic obstructive pulmonary disease with (acute) exacerbation; D63.8 Anemia in other chronic diseases classified elsewhere; F10.10 Alcohol abuse, uncomplicated; D69.59 Other secondary thrombocytopenia; H27.122 Anterior dislocation of lens, left eye; E66.9 Obesity, unspecified; I10 Essential (primary) hypertension; Z71.3 Dietary counseling and surveillance; Z68.38 Body mass index [BMI] 38.0-38.9, adult; E87.6 Hypokalemia; E83.42 Hypomagnesemia; Z79.4 Long term (current) use of insulin; Z79.82 Long term (current) use of aspirin; Z79.899 Other long term (current) drug therapy
CPT/HCPCS: 36415; 71045; 80048; 80053; 80076; 80307; 81001; 81003; 82140; 82272; 82607; 82746; 82947; 83605; 83735; 83880; 84100; 84484; 85025; 85027; 87015; 87086; 87088; 87186; 87207; 89055; 93005; 97162; 99285; C9113; J0456; J0696; J2560; J3411; J3475; J3480; J7120

== ENCOUNTER → 2023-06-06 23:48 | Outpatient (BNV) | payer OTHER, SELFPAY | PROVIDERS: Admitting Provider Internal Medicine; Emergency Provider Emergency Medicine; Visit Provider Internal Medicine Cardiovascular Disease | DX: R55 Syncope and collapse (principal) | CPT/HCPCS: 93010 ==

== ENCOUNTER → 2023-06-07 03:40 | Outpatient (BNV) | payer OTHER, SELFPAY | PROVIDERS: Admitting Provider Internal Medicine; Emergency Provider Emergency Medicine; Visit Provider Internal Medicine | DX: E87.6 Hypokalemia (principal); N17.9 Acute kidney failure, unspecified; J18.9 Pneumonia, unspecified organism; F10.10 Alcohol abuse, uncomplicated | CPT/HCPCS: 99223; 99233; 99239; 99499; G0180 ==

== ENCOUNTER → 2023-06-07 03:40 | Outpatient (BNV) | payer OTHER, SELFPAY | PROVIDERS: Admitting Provider Internal Medicine; Emergency Provider Emergency Medicine; Visit Provider Internal Medicine Nephrology | DX: N17.9 Acute kidney failure, unspecified (principal); E86.0 Dehydration; E87.6 Hypokalemia; R19.7 Diarrhea, unspecified | CPT/HCPCS: 99222; 99499 ==

== ENCOUNTER 2023-07-05 19:23 | Inpatient (IN) | payer MEDICARE, SELFPAY ==
--- NOTE | 2023-07-05 | ECG_ITS ---
Test Reason : WEAKNESS Blood Pressure : / mmHG Vent. Rate : 068 BPM Atrial Rate : 068 BPM P-R Int : 190 ms QRS Dur : 108 ms QT Int : 450 ms P-R-T Axes : 041 062 032 degrees QTc Int : 478 ms Normal sinus rhythm Incomplete right bundle branch block Borderline ECG When compared with ECG of 06-JUN-2023 23:48, No significant change was found Referred By: Angelika Wong Electronically Signed By:ARRON RIGGS MD
--- NOTE | ~2023-07-05 | CT_ITS ---
EXAMINATION: CT HEAD WITHOUT CONTRAST CLINICAL INFORMATION: Altered mental status. COMPARISON: 05/25/2023. TECHNIQUE: Contiguous axial imaging was performed from the skull base to vertex without intravenous administration of contrast. This CT examination was performed using dose optimization techniques as appropriate, variously including the following: *Automated exposure control *Adjustment of mA and/or kV according to patient size (this includes techniques or standardized protocols for targeted exams where dose is matched to indication/reason for exam; i.e. extremities or head) *Use of iterative reconstruction technique DLP: 772 mGy-cm FINDINGS: There is mild cerebral volume loss with prominence of the lateral and the third ventricles. The cortical sulci are widened appropriately. The fourth ventricle and basal cisterns are normally outlined. There is mild bilateral periventricular and central white matter diminished attenuation. There is no acute territorial defect, hemorrhage or midline shift. The extra-axial spaces are unremarkable. Calvarium: Intact. Maxillofacial sinuses and mastoids: Clear as visualized. CT/CT head/brain wo IV con IMPRESSION: 1. No acute intracranial process seen. 2. Mild cerebral volume loss with mild chronic small vessel ischemic changes.
--- NOTE | ~2023-07-05 | CT_ITS ---
EXAMINATION: CT ABDOMEN AND PELVIS WITHOUT CONTRAST CLINICAL INFORMATION: Abdominal pain, renal failure COMPARISON: CT from 12/04/2022 TECHNIQUE: Multidetector volumetric imaging was performed from the superior aspect of the liver through the pubic symphysis. Sagittal and coronal reformatted images were obtained on the technologist's workstation. This CT examination was performed using dose optimization techniques as appropriate, variously including the following: *Automated exposure control *Adjustment of mA and/or kV according to patient size (this includes techniques or standardized protocols for targeted exams where dose is matched to indication/reason for exam; i.e. extremities or head) *Use of iterative reconstruction technique DLP: 1371 mGy-cm FINDINGS: LUNG BASES: Dependent atelectasis in the lower lobes. LIVER, GALLBLADDER, AND BILIARY TREE: Liver is markedly decreased in attenuation consistent with severe hepatic steatosis. Question nodular contour of the liver which could represent underlying cirrhosis. No focal hepatic lesions. The gallbladder is unremarkable with no evidence of radiopaque gallstones, gallbladder wall thickening, or obvious pericholecystic inflammatory changes. PANCREAS: Mild edematous changes is seen within the pancreas especially in the body and tail consistent with acute pancreatitis. SPLEEN: Unremarkable. ADRENAL GLANDS: Unremarkable. KIDNEYS AND URETERS: The kidneys are normal in size, shape, and attenuation. No hydronephrosis, hydroureter, or calculi seen. No perinephric stranding. BLADDER: Decompressed by Cole catheter. GASTROINTESTINAL TRACT: The small bowel are unremarkable. Colon is completely decompressed. ABDOMINAL WALL: Status post ventral wall hernia repair with mesh LYMPH NODES: Normal. VASCULAR: Diffuse atherosclerotic wall calcifications of the abdominal aorta PELVIC VISCERA: Unremarkable. OSSEOUS STRUCTURES: Posterior fusion of thrombus L4-S1. Underlying degenerative disc disease of the thoracic and lumbar spine CT/CT abdomen pelvis wo IV con IMPRESSION: 1. Mild edematous changes of the pancreas consistent with acute pancreatitis. 2. Severe hepatic steatosis. Question nodular contour of the liver which could represent underlying cirrhosis.
--- NOTE | ~2023-07-05 | XR_ITS ---
EXAMINATION: XR CHEST CLINICAL INFORMATION: Chest pain. COMPARISON: 06/07/2023 TECHNIQUE: Frontal view of the chest was obtained. FINDINGS: The cardiomediastinal silhouette is stable. There is stable mild elevation of the right hemidiaphragm. There is no focal lung consolidation or pleural effusion. The bony structures and soft tissues are unremarkable. XR/XR chest 1V IMPRESSION: No acute cardiopulmonary process.
--- NOTE | ~2023-07-05 | XR_ITS ---
EXAMINATION: XR CHEST CLINICAL INFORMATION: Central line placement. COMPARISON: 07/05/2023 TECHNIQUE: Frontal view of the chest was obtained. FINDINGS: The cardiomediastinal silhouette is stable. There has been interval placement of a right approach central line with tip at the lower SVC/right atrial junction. There is no pneumothorax. There is no focal lung consolidation or pleural effusion. There is stable mild elevation of the right hemidiaphragm. The bony structures and soft tissues are unremarkable. XR/XR chest 1V IMPRESSION: 1. Right approach central line with tip at the lower SVC/right atrial junction. 2. No acute cardiopulmonary process.
[2023-07-05 19:47] VITALS: BP 156/66; PULSE 79; O2SAT 94
[2023-07-05 19:54] VITALS: BP 68/30; PULSE 68; RESP 10; O2SAT 92; BMI 38.6
[2023-07-05 19:58] LABS: Glucose, Whole Blood 191 mg/dL (60-115)
[2023-07-05 20:13] VITALS: BP 67/34; PULSE 68; RESP 11
[2023-07-05] MEDS: 0.9 % Sodium Chloride 1,000 ML 999 ML IV ×3 (20:16→21:50)
--- NOTE | 2023-07-05 20:22 | ED.AMS ---
HPI - Altered Mental Status General Chief Complaint: Altered Mental Status Stated Complaint: lethargy, weakness, hx of electrolyte imbalance Time Seen by Provider: 07/05/23 20:00 History of Present Illness HPI narrative: 57 yo male with PMH of DM, obesity, KD, CAD, HTN, COPD, restrictive airway disease, thrombocytopenia. Long history of alcohol abuse in the past. Presents today with having a ?? diabetes emergency? per family patient been having poor p.o. intake very weak not quite self patient is noted to have a low blood pressure on arrival. He denies having any blood in the stool. There was no coughing no congestion. Denies any EtOH today. No fever no chills. Positive generalized malaise weakness. Per family this happens when his electrolytes are off. Patient unable to give detail history. Related Data Home Medications ?Medication ?Instructions ?Recorded ?Confirmed aspirin 81 mg tablet,delayed 81 mg PO DAILY 03/17/22 06/07/23 release duloxetine 30 mg capsule,delayed 1 cap PO BID 03/17/22 06/07/23 release multivitamin 1 tab PO DAILY 03/17/22 06/07/23 oxycodone 5 mg tablet 1 tab PO DAILY PRN Moderate Pain 03/17/22 06/07/23 (Scale Score 5-6) carbamazepine 200 mg tablet 200 mg PO BID 12/04/22 06/07/23 pregabalin 200 mg capsule 200 mg PO TID 12/04/22 06/07/23 albuterol sulfate 90 mcg/actuation 2 puff inhalation Q6H PRN 06/07/23 06/07/23 aerosol inhaler shortness of breath or wheezing ipratropium 0.5 mg-albuterol 3 mg 3 ml inhalation Q6H PRN Wheezing 06/07/23 06/07/23 (2.5 mg base)/3 mL nebulization soln latanoprost 0.005 % eye drops 1 drp ophthalmic (eye) BEDTIME 06/07/23 06/07/23 lisinopril 10 mg tablet 10 mg PO DAILY 06/07/23 06/07/23 Previous Rx's ?Medication ?Instructions ?Recorded Accu-Chek Guide Me Glucose Mtr #1 ea 06/11/22 (blood-glucose meter) lancets 30 gauge (BD Ultra-Fine II #100 ea 06/11/22 Lancets) insulin glargine 100 unit/mL (3 30 unit (0.3 mL) subcut DAILY #30 10/18/22 mL) subcutaneous pen (Lantus mL Solostar U-100 Insulin) furosemide 20 mg tablet 20 mg PO BID #180 tabs 12/30/22 Accu-Chek Guide test strips (blood #300 ea 01/17/23 sugar diagnostic) pen needle, diabetic 31 gauge x #100 ea 03/05/2306/13 (BD Ultra-Fine Mini Pen Needle) folic acid 1 mg tablet 1 mg PO DAILY #90 tabs 03/15/23 atorvastatin 40 mg tablet 40 mg PO DAILY #90 tabs 03/27/23 brimonidine 0.2 % eye drops 1 drp ophthalmic-Left TID #5 mL 05/26/23 azithromycin 500 mg tablet 500 mg PO DAILY 5 days #5 tabs 06/09/23 cefuroxime axetil 500 mg tablet 500 mg PO BID #10 tabs 06/09/23 metoprolol succinate 50 mg 100 mg (2 x 50 mg) PO DAILY #180 06/10/23 tablet,extended release 24 hr tabs Allergies Allergy/AdvReac Type Severity Reaction Status Date / Time cyclobenzaprine Allergy Unknown RASH Verified 07/05/23 19:57 [From FLEXERIL] penicillin V Allergy Unknown anaphylaxis Verified 07/05/23 19:57 pineapple Allergy Unknown Unknown Verified 07/05/23 19:57 FADIA Inhibitors AdvReac Severe Angioedema Verified 07/05/23 19:57 Review of Systems Review of Systems: weakness [facility] Past Medical History Attestation statement: The following information was validated with the patient. Medical History Pneumonia COPD (chronic obstructive pulmonary disease) Diabetes Nicotine dependence, cigarettes, uncomplicated Tracheostomy care Respiratory failure Diastolic CHF Seizure disorder History of TIA (transient ischemic attack) History of hepatitis C CAD (coronary artery disease) HTN (hypertension) Insulin dependent type 2 diabetes mellitus Diabetic neuropathy Restrictive airway disease KD (obstructive sleep apnea) ETOH abuse Morbid obesity Transaminitis Fatty liver History of colon polyps Obesity Microalbuminuria Foot ulcer, left Fracture of right tibia and fibula Metatarsal bone fracture Surgical History History of surgery on lower extremity (~2019) History of lumbar spinal fusion History of colonoscopy (~2018) History of hernia repair History of cardiac catheterization (~2018) Family History Family History Father CVD (cardiovascular disease) Colon cancer Mother No problems noted. Brother Liver cancer Paternal Aunt Colon cancer Social History Social History Household Members: None and Unknown / Unable to assess Household Members Other:: Housing: Unknown / Unable to assess Do you presently have visiting nurse or other home services: No Unable to assess alcohol history related to: Unable to respond Alcohol intake: current Alcohol intake frequency: 0-2 drinks per day Alcohol type: beer and hard liquor Patient Tobacco Use Status: Current everyday Tobacco user Tobacco use type: Cigarette Years Smoked: onset 18yo, 1-2ppd x 37yrsm now 1/2ppd - 50pyh Second Hand Smoke Exposure: Yes Substance Use Type: Marijuana Advance Directives: Yes Advance Directives on File: Yes Advance Directives Date on File: 03/20/22 service: No Current occupational status: disabled Current occupation: right handed Cognitive needs: No Hearing needs: No Vision needs: No Physical Exam ED Vital Signs: Vital Signs - 24 hr 07/05/23 19:54 07/05/23 20:13 07/05/23 20:47 Temperature Pulse Rate 68 68 65 Respiratory Rate 10 L 11 L 18 Blood Pressure 68/30 L 67/34 L 87/53 L Pulse Oximetry 92 Oxygen Delivery Method Room Air 07/05/23 22:10 07/05/23 22:52 07/06/23 00:02 Temperature 97.5 F Pulse Rate 104 H 67 72 Respiratory Rate 16 11 L 11 L Blood Pressure 144/122 H 57/31 L 86/47 L Pulse Oximetry 89 L 88 L Oxygen Delivery Method Room Air Room Air BMI result Body Mass Index 38.6 Appearance: Sick appearing. Oriented X3. No acute distress. Eyes: Pupils equal, round and reactive to light. ENT: Pharynx normal. Neck: Normal inspection. Neck supple. No lymph nodes noted. No crepitus CVS: Normal heart rate and rhythm. Pulses normal. Normal S1 and S2 Respiratory: No respiratory distress. Breath sounds normal. No Wheezing. No rales Abdomen: Soft and nontender. No rigidity. No distention. good BS x4 Skin: Skin warm and dry. Normal skin color. Normal skin turgor. Extremities: No lower extremity edema. Neurovascular intact to all extremities. No Lacerations. No Rash Neuro: Oriented X 3. No motor deficit. Very lethargic follows simple commands Medications Administered Discontinued Medications Generic Name Dose Route Start Last Admin Trade Name Freq PRN Reason Stop Dose Admin Sodium Chloride 1,000 mls @ 999 mls/hr 07/05/23 20:15 07/05/23 21:22 Ns IV 07/05/23 21:15 Infused .Q1H1M JAMEEL Infusion Sodium Chloride 1,000 mls @ 999 mls/hr 07/05/23 20:30 07/05/23 21:50 Ns IV 07/05/23 21:30 Infused .Q1H1M JAMEEL Infusion Levofloxacin 500 mg in 100 mls @ 100 mls/hr 07/05/23 20:57 07/05/23 23:48 Levaquin IV 07/05/23 21:56 Infused ONCE ONE Infusion Albumin Human 100 mls @ 100 mls/hr 07/05/23 21:45 07/05/23 23:49 Kedbumin 25 % IV 07/05/23 23:44 100 mls/hr Q1H JAMEEL Administration Sodium Chloride 1,000 mls @ 999 mls/hr 07/05/23 21:45 07/05/23 22:51 Ns IV 07/05/23 22:45 Infused .Q1H1M JAMEEL Infusion Potassium Chloride 10 meq in 100 mls @ 100 mls/hr 07/05/23 22:30 07/05/23 23:49 Potassium Chloride/H20 IV 07/06/23 00:29 100 mls/hr Q1H JAMEEL Administration Medical Decision Making Medical Decision Making [facility] Narrative: Patient is a 57-year-old male presents to the emergency department with generalized malaise weakness family was concerned patient had a diabetic emergency. Patient also has a history of COPD. History of respiratory failure. My interpretation patient's venous blood gas showed no CO2 retention. Patient's glucose is 140 there is no evidence for hypoglycemia when he arrived he had an extremely low blood pressure of 60/40. Two large bore IV was started patient is given a full 3 L of IV fluids. Initial lactate was 2.4. After the IV fluid repeat lactate is normal. Patient's chest x-ray by my interpretation was grossly negative. Cultures obtained antibiotic was started empirically. A dose of Levaquin was given as patient had a previous anaphylactic reaction to penicillin. CT scan of the head was done. There has no evidence of bleeding there has no evidence for mass no fracture. I reviewed radiology's reading of the CT scan head. I reviewed patient's CT scan of the abdomen no gross obstruction noted. Final reading from Radiology still pending. After fluids patient's blood pressure is still low. Patient's ammonia level is elevated at approximately 60. Patient's electrolytes showed significant renal insufficiency that is new with a creatinine over 5. A dose of albumin was given. Blood pressure still approximately 90/50. Patient's case discussed with the meal temperer for admission. Can not exclude the possibility hepatorenal syndrome. Patient is started on a dose of lactulose. Differential Diagnosis Differential Diagnoses: The differential diagnosis associated with the presentation includes Hepatorenal syndrome, dehydration, infection, Admission/Observation Consideration of admission/observation: Escalation of care including admission/observation considered Consult Healthcare Provider Management of the patient was discussed with: Account Services Manager (Filament Tester) Lab Data MDM Lab Attestation statement: I reviewed the patient's lab results. 07/05/23 20:37 07/05/23 21:42 Labs: Lab Results 07/05/23 07/05/23 07/05/23 Range/Units 19:55 20:20 20:26 WBC (4.8-10.8) X10*3/uL RBC (4.60-5.80) X10*6/uL Hgb (14.0-18.0) g/dl Hct (42.0-52.0) % MCV (80.0-98.0) fL MCH (27.0-33.0) pg MCHC (31.0-36.0) g/dl RDW (11.0-16.0) % Plt Count (160-400) X10*3/uL MPV (9.4-12.4) fL Immature Gran % (Auto) (0.0-0.4) % Neut % (Auto) (45-73) % Lymph % (Auto) (20-40) % [place] % (Auto) (2-11) % Eos % (Auto) (0-4) % Baso % (Auto) (0-2) % Lymph # (Auto) (1.2-4.9) X10*3/uL [place] # (Auto) (0.1-1.2) X10*3/uL Eos # (Auto) (0.0-0.4) X10*3/uL Baso # (Auto) (0.0-0.2) X10*3/uL Abs Immat Gran (auto) (0.00-0.03) X10*3/uL Absolute Neuts (auto) (2.0-8.3) x10*3/uL Absolute Nucleated RBC (0.0-0.012) X10*3/uL Nucleated RBC % (auto) (0.0-0.2) /100WBC PT (11.1-13.3) SEC INR (0.9-1.1) VBG pH 7.41 (7.32-7.43) VBG pCO2 29 mmHg VBG pO2 125 mmHg VBG HCO3 19 L (22-26) mmol/L VBG O2 Saturation 99.0 % VBG Base Excess -3.8 mmol/L Sodium (135-145) mmol/L Potassium (3.3-5.1) mmol/L Chloride (96-108) mmol/L Carbon Dioxide (22-29) mmol/L Anion Gap (12-20) BUN (9-16) mg/dL Creatinine (0.5-1.4) mg/dL Estim Creat Clear Calc Estimated GFR POC Glucose 191 H (60-115) mg/dL Random Glucose (60-115) mg/dL Lactic Acid (0.5-2.0) mmol/L Lactic Acid F/U @ 2Hr (0.5-2.0) mmol/L Calcium Cancelled Phosphorus (2.7-4.5) mg/dL Magnesium (1.6-2.6) mg/dL Total Bilirubin (0.0-1.0) mg/dL Direct Bilirubin (0.0-0.5) mg/dL AST (5-37) U/L ALT (0-40) U/L Alkaline Phosphatase (39-117) U/L Ammonia (13-55) umol/L Troponin I High Sens (<3.5-35.0) ng/L Total Protein (6.5-8.0) g/dL Albumin (3.5-5.0) g/dL Lipase (8-78) U/L Urine Color Urine Appearance Urine pH (5.0-9.0) Ur Specific [place] (1.005-1.025) Urine Protein (Neg-Trace) mg/dL Urine Glucose (UA) (Negative) mg/dL Urine Ketones (Negative) mg/dL Urine Blood (Negative) Urine Nitrite (Negative) Ur Leukocyte Esterase (Negative) Urine RBC (0-2) /HPF Urine WBC (0-5) /HPF Ur Squamous Epith Cells (0-2) /HPF Urine Bacteria (None Seen) Hyaline Casts (0-2) /LPF Urine Opiates Screen (Not Detect) Urine Fentanyl Screen (Not Detect) Ur Barbiturates Screen (Not Detect) Ur Phencyclidine Scrn (Not Detect) Ur Amphetamines Screen (Not Detect) U Benzodiazepines Scrn (Not Detect) Urine Cocaine Screen (Not Detect) U Marijuana (THC) Screen (Not Detect) Ethyl Alcohol mg/dL 07/05/23 07/05/23 07/05/23 Range/Units 20:37 20:50 21:42 WBC 9.8 (4.8-10.8) X10*3/uL RBC 3.31 L (4.60-5.80) X10*6/uL Hgb 12.6 L (14.0-18.0) g/dl Hct 35.4 L (42.0-52.0) % MCV 106.9 H (80.0-98.0) fL MCH 38.1 H (27.0-33.0) pg MCHC 35.6 (31.0-36.0) g/dl RDW 15.9 (11.0-16.0) % Plt Count 140 L D (160-400) X10*3/uL MPV 9.8 (9.4-12.4) fL Immature Gran % (Auto) 1.4 H (0.0-0.4) % Neut % (Auto) 70.3 (45-73) % Lymph % (Auto) 11.8 L (20-40) % [place] % (Auto) 12.5 H (2-11) % Eos % (Auto) 3.2 (0-4) % Baso % (Auto) 0.8 (0-2) % Lymph # (Auto) 1.2 (1.2-4.9) X10*3/uL [place] # (Auto) 1.2 (0.1-1.2) X10*3/uL Eos # (Auto) 0.3 (0.0-0.4) X10*3/uL Baso # (Auto) 0.1 (0.0-0.2) X10*3/uL Abs Immat Gran (auto) 0.14 H (0.00-0.03) X10*3/uL Absolute Neuts (auto) 6.9 (2.0-8.3) x10*3/uL Absolute Nucleated RBC 0.000 (0.0-0.012) X10*3/uL Nucleated RBC % (auto) 0.0 (0.0-0.2) /100WBC PT 14.9 H D (11.1-13.3) SEC INR 1.2 H (0.9-1.1) VBG pH (7.32-7.43) VBG pCO2 mmHg VBG pO2 mmHg VBG HCO3 (22-26) mmol/L VBG O2 Saturation % VBG Base Excess mmol/L Sodium 133 L (135-145) mmol/L Potassium 2.3 L* D (3.3-5.1) mmol/L Chloride 97 (96-108) mmol/L Carbon Dioxide 21 L (22-29) mmol/L Anion Gap 17 (12-20) BUN 33 H (9-16) mg/dL Creatinine 5.17 H* (0.5-1.4) mg/dL Estim Creat Clear Calc 21.3 Estimated GFR 11 POC Glucose (60-115) mg/dL Random Glucose 176 H (60-115) mg/dL Lactic Acid 2.3 H* (0.5-2.0) mmol/L Lactic Acid F/U @ 2Hr (0.5-2.0) mmol/L Calcium 7.1 L D Phosphorus 5.2 H (2.7-4.5) mg/dL Magnesium 1.6 (1.6-2.6) mg/dL Total Bilirubin 1.5 H (0.0-1.0) mg/dL Direct Bilirubin 1.2 H (0.0-0.5) mg/dL AST 83 H (5-37) U/L ALT 44 H (0-40) U/L Alkaline Phosphatase 178 H (39-117) U/L Ammonia 61 H (13-55) umol/L Troponin I High Sens 19.2 (<3.5-35.0) ng/L Total Protein 5.8 L (6.5-8.0) g/dL Albumin 2.3 L (3.5-5.0) g/dL Lipase 81 H (8-78) U/L Urine Color Dark Yellow Urine Appearance Cloudy Urine pH 5.5 (5.0-9.0) Ur Specific [place] 1.015 (1.005-1.025) Urine Protein 30 (1+) H (Neg-Trace) mg/dL Urine Glucose (UA) Negative (Negative) mg/dL Urine Ketones Negative (Negative) mg/dL Urine Blood Negative (Negative) Urine Nitrite Negative (Negative) Ur Leukocyte Esterase Trace H (Negative) Urine RBC 0-2 (0-2) /HPF Urine WBC 6-10 H (0-5) /HPF Ur Squamous Epith Cells 11-20 (0-2) /HPF Urine Bacteria None Seen (None Seen) Hyaline Casts 3-5 (0-2) /LPF Urine Opiates Screen Not Detected (Not Detect) Urine Fentanyl Screen Not Detected (Not Detect) Ur Barbiturates Screen POSITIVE H (Not Detect) Ur Phencyclidine Scrn Not Detected (Not Detect) Ur Amphetamines Screen Not Detected (Not Detect) U Benzodiazepines Scrn Not Detected (Not Detect) Urine Cocaine Screen Not Detected (Not Detect) U Marijuana (THC) Screen Not Detected (Not Detect) Ethyl Alcohol < 10 mg/dL 07/05/23 Range/Units 23:18 WBC (4.8-10.8) X10*3/uL RBC (4.60-5.80) X10*6/uL Hgb (14.0-18.0) g/dl Hct (42.0-52.0) % MCV (80.0-98.0) fL MCH (27.0-33.0) pg MCHC (31.0-36.0) g/dl RDW (11.0-16.0) % Plt Count (160-400) X10*3/uL MPV (9.4-12.4) fL Immature Gran % (Auto) (0.0-0.4) % Neut % (Auto) (45-73) % Lymph % (Auto) (20-40) % [place] % (Auto) (2-11) % Eos % (Auto) (0-4) % Baso % (Auto) (0-2) % Lymph # (Auto) (1.2-4.9) X10*3/uL [place] # (Auto) (0.1-1.2) X10*3/uL Eos # (Auto) (0.0-0.4) X10*3/uL Baso # (Auto) (0.0-0.2) X10*3/uL Abs Immat Gran (auto) (0.00-0.03) X10*3/uL Absolute Neuts (auto) (2.0-8.3) x10*3/uL Absolute Nucleated RBC (0.0-0.012) X10*3/uL Nucleated RBC % (auto) (0.0-0.2) /100WBC PT (11.1-13.3) SEC INR (0.9-1.1) VBG pH (7.32-7.43) VBG pCO2 mmHg VBG pO2 mmHg VBG HCO3 (22-26) mmol/L VBG O2 Saturation % VBG Base Excess mmol/L Sodium (135-145) mmol/L Potassium (3.3-5.1) mmol/L Chloride (96-108) mmol/L Carbon Dioxide (22-29) mmol/L Anion Gap (12-20) BUN (9-16) mg/dL Creatinine (0.5-1.4) mg/dL Estim Creat Clear Calc Estimated GFR POC Glucose (60-115) mg/dL Random Glucose (60-115) mg/dL Lactic Acid (0.5-2.0) mmol/L Lactic Acid F/U @ 2Hr 1.4 (0.5-2.0) mmol/L Calcium Phosphorus (2.7-4.5) mg/dL Magnesium (1.6-2.6) mg/dL Total Bilirubin (0.0-1.0) mg/dL Direct Bilirubin (0.0-0.5) mg/dL AST (5-37) U/L ALT (0-40) U/L Alkaline Phosphatase (39-117) U/L Ammonia (13-55) umol/L Troponin I High Sens (<3.5-35.0) ng/L Total Protein (6.5-8.0) g/dL Albumin (3.5-5.0) g/dL Lipase (8-78) U/L Urine Color Urine Appearance Urine pH (5.0-9.0) Ur Specific [place] (1.005-1.025) Urine Protein (Neg-Trace) mg/dL Urine Glucose (UA) (Negative) mg/dL Urine Ketones (Negative) mg/dL Urine Blood (Negative) Urine Nitrite (Negative) Ur Leukocyte Esterase (Negative) Urine RBC (0-2) /HPF Urine WBC (0-5) /HPF Ur Squamous Epith Cells (0-2) /HPF Urine Bacteria (None Seen) Hyaline Casts (0-2) /LPF Urine Opiates Screen (Not Detect) Urine Fentanyl Screen (Not Detect) Ur Barbiturates Screen (Not Detect) Ur Phencyclidine Scrn (Not Detect) Ur Amphetamines Screen (Not Detect) U Benzodiazepines Scrn (Not Detect) Urine Cocaine Screen (Not Detect) U Marijuana (THC) Screen (Not Detect) Ethyl Alcohol mg/dL ABG Data Attestation ABG: I personally reviewed and interpreted this ABG as follows: Interpretation: No CO2 retention normal pH Independent Interpretation I performed an independent interpretation of an: EKG, Plain X-Ray (Chest x-ray is negative for any acute infiltrate) and CT Scan (CT scan of the head was grossly negative. CT scan of the abdomen pelvis showed no acute obstruction no postrenal obstruction.) Radiology Impression Discussion of test interpretation with radiology: I have reviewed the radiologist's reading. Independent Historian Clinical information obtained from an independent historian. History obtained from or confirmed by: Spouse External Record Review External record reviewed: Inpatient record Chronic Conditions Respiratory failure in the past, history of drinking history of liver cirrhosis Social Determinants Patient?s care significantly limited by Social Determinants of Health including: Problems related to primary support group Critical Care Time Critical Care Time Critical Care Time: Yes Total Critical Care Time: 40 Attestation: I have personally provided 40 minutes of critical care time exclusive of time spent on separately billable procedures. ?Time includes review of lab data, radiology results, discussion with consultants, and monitoring for potential decompensation. ?Interventions were performed as documented above Discharge Plan Discharge Clinical Impression: Diabetes, Hepatorenal failure, Acute hypokalemia Prescriptions: No Action (DME) lancets [BD Ultra-Fine II Lancets] 30 gauge misc See Rx Instructions .Route Qty: 100 0RF Rx Instructions: TID (DME) blood-glucose meter [Accu-Chek Guide Me Glucose Mtr] Misc See Rx Instructions .Route Qty: 1 0RF Rx Instructions: TID testing insulin glargine [Lantus Solostar U-100 Insulin] 100 unit/mL (3 mL) insulin pen 30 unit subcut DAILY Qty: 30 1RF furosemide 20 mg tablet 20 mg PO BID Qty: 180 1RF (DME) Accu-Chek Guide test strips Strip See Rx Instructions .Route Qty: 300 1RF Rx Instructions: tid testing (DME) pen needle, diabetic [BD Ultra-Fine Mini Pen Needle] 31 gauge x 3/16 needle See Rx Instructions .Route Qty: 100 1RF Rx Instructions: Use to inject insulin once per day folic acid 1 mg tablet 1 mg PO DAILY Qty: 90 1RF atorvastatin 40 mg tablet 40 mg PO DAILY Qty: 90 3RF metoprolol succinate 50 mg tablet extended release 24 hr 100 mg PO DAILY Qty: 180 0RF Rx Instructions: OVERDUE FOR APPT. PLEASE CALL [phone] TO SCHEDULE PPT SO WE CAN CONTINUE REFILLING YOUR MEDICATIONS. multivitamin Tablet 1 tab PO DAILY oxycodone 5 mg tablet 1 tab PO DAILY PRN (Reason: Moderate Pain (Scale Score 5-6)) duloxetine 30 mg capsule,delayed release(DR/EC) 1 cap PO BID aspirin 81 mg Tablet,Delayed Release (Dr/Ec) 81 mg PO DAILY carbamazepine 200 mg tablet 200 mg PO BID pregabalin 200 mg Capsule 200 mg PO TID brimonidine 0.2 % drops 1 drp ophthalmic-Left TID Qty: 5 0RF Rx Instructions: administer approximately 8 hours apart latanoprost 0.005 % drops 1 drp ophthalmic (eye) BEDTIME ipratropium-albuterol 0.5 mg-3 mg(2.5 mg base)/3 mL solution for nebulization 3 ml inhalation Q6H PRN (Reason: Wheezing) lisinopril 10 mg tablet 10 mg PO DAILY albuterol sulfate 90 mcg/actuation HFA aerosol inhaler 2 puff inhalation Q6H PRN (Reason: shortness of breath or wheezing) azithromycin 500 mg tablet 500 mg PO DAILY 5 Days Qty: 5 0RF cefuroxime axetil 500 mg tablet 500 mg PO BID Qty: 10 0RF Print Language: Samoan
[2023-07-05 20:31] LABS: VBG Base Excess -3.8 mmol/L; VBG HCO3 19 mmol/L (22-26); VBG pCO2 29 mmHg; VBG pH 7.41 (7.32-7.43); VBG pO2 125 mmHg
[2023-07-05 20:31] LABS: Venous Blood Gas Refer to POC result
[2023-07-05 20:43] LABS: MANUAL DIFF FLAG NO
[2023-07-05 20:47] VITALS: BP 87/53; PULSE 65; RESP 18
[2023-07-05 20:49] LABS: Ammonia 61 umol/L (13-55); INTERNATIONAL NORM RATIO 1.2 (0.9-1.1); Prothrombin Time 14.9 SEC (11.1-13.3)
[2023-07-05 20:57] LABS: Lactic Acid 2.3 mmol/L (0.5-2.0)
[2023-07-05 21:00] LABS: Appearance Urine Cloudy; Color Urine Dark Yellow; Glucose Urine UA Negative (Negative); Leukocyte Esterase Urine Trace (Negative); Nitrite Urine Negative (Negative); PH 5.5 (5.0-9.0); Specific Gravity - Urine 1.015 (1.005-1.025); UMIC TRIGGER UACC YES; Urine Blood Negative (Negative); Urine Ketones Negative (Negative); Urine Protein 30 (1+) mg/dL (Neg-Trace)
[2023-07-05 21:01] LABS: Basophils Absolute Auto 0.1 X10*3/uL (0.0-0.2); Basophils Percent Auto 0.8 % (0-2); Eosinophils Absolute Auto 0.3 X10*3/uL (0.0-0.4); Eosinophils Percent Auto 3.2 % (0-4); Hematocrit 35.4 % (42.0-52.0); Hemoglobin 12.6 g/dl (14.0-18.0); Imm Gran Abs Auto 0.14 X10*3/uL (0.00-0.03); Imm Gran Pct Auto 1.4 % (0.0-0.4); Lymphocytes Absolute Auto 1.2 X10*3/uL (1.2-4.9); Lymphocytes Percent Auto 11.8 % (20-40); Mean Corpuscular HGB Conc 35.6 g/dl (31.0-36.0); Mean Corpuscular Hemoglobin 38.1 pg (27.0-33.0); Mean Corpuscular Volume 106.9 fL (80.0-98.0); Monocytes Absolute Auto 1.2 X10*3/uL (0.1-1.2); Monocytes Percent Auto 12.5 % (2-11); Neutrophils Absolute Auto 6.9 x10*3/uL (2.0-8.3); Neutrophils Percent Auto 70.3 % (45-73); Red Blood Count 3.31 X10*6/uL (4.60-5.80); Red Cell Distribution Width 15.9 % (11.0-16.0); White Blood Count 9.8 X10*3/uL (4.8-10.8)
[2023-07-05 21:06] LABS: Bacteria Urine None Seen (None Seen); RBC Urine 0-2 /HPF (0-2); UACC Culture Trigger YES
[2023-07-05 21:08] LABS: Amphetamine Screen Urine Not Detected (Not Detect); Barbiturates, Urine POSITIVE (Not Detect); Benzodiazepines Screen Urine Not Detected (Not Detect); Cannabinoid Screen Urine Not Detected (Not Detect); Cocaine Screen Urine Not Detected (Not Detect); Fentanyl, urine Not Detected (Not Detect); Opiate Screen Urine Not Detected (Not Detect); Phencyclidine Screen Urine Not Detected (Not Detect)
[2023-07-05 21:42] LABS: Mean Platelet Volume 9.8 fL (9.4-12.4); Platelet Count 140 X10*3/uL (160-400)
[2023-07-05 22:10] VITALS: BP 144/122; PULSE 104; RESP 16; TEMP 36.4; O2SAT 89
[2023-07-05 22:19] LABS: Alanine Aminotransferase 44 U/L (0-40); Albumin Level 2.3 g/dL (3.5-5.0); Alkaline Phosphatase 178 U/L (39-117); Anion Gap 17 (12-20); Aspartate Amino Transferase 83 U/L (5-37); Bilirubin Direct 1.2 mg/dL (0.0-0.5); Bilirubin Total 1.5 mg/dL (0.0-1.0); Blood Urea Nitrogen 33 mg/dL (9-16); Calcium 7.1 mg/dL (8.4-10.2); Carbon Dioxide 21 mmol/L (22-29); Chloride 97 mmol/L (96-108); Creatinine Clr Calc Pharmacy 21.3; Estimated Glomerular Filt Rate 11; Ethanol < 10 mg/dL; Glucose Random 176 mg/dL (60-115); Lipase 81 U/L (8-78); Magnesium 1.6 mg/dL (1.6-2.6); Phosphorus 5.2 mg/dL (2.7-4.5); Potassium 2.3 mmol/L (3.3-5.1); Sodium 133 mmol/L (135-145); Total Protein 5.8 g/dL (6.5-8.0)
[2023-07-05 22:21] LABS: Troponin-I High Sensitivity 19.2 ng/L (<3.5-35.0)
[2023-07-05] MEDS: levoFLOXacin/D5W 500 MG/100 ML PIGGYBACK 100 MG IV (22:39)
[2023-07-05 22:41] LABS: Reflex Lactate? Lactic Acid Added
[2023-07-05] MEDS: Albumin Human 25 % 100 ML IV ×2 (22:45→23:49)
[2023-07-05 22:52] VITALS: BP 57/31; PULSE 67; RESP 11
[2023-07-05 23:34] LABS: ~Lactic Acid-LAB USE ONLY 1.4 mmol/L (0.5-2.0)
[2023-07-05] MEDS: Potassium Chloride/H20 10 MEQ/100 ML PIGGYBACK 100 MEQ IV (23:49)
[2023-07-06] VITALS (36 sets, daily range): BP systolic 57–122; BP diastolic 34–82; PULSE 64–86; RESP 10–70; TEMP 36.4–37.4; O2SAT 88–95; BMI 36.5
[2023-07-06] MEDS: Albumin Human 25 % 100 ML 133.33 ML IV ×2 (00:53→01:07)
--- NOTE | 2023-07-06 01:04 | PM.CCHP ---
History of Present Illness Date of Service: 07/06/23 Attending physician on admission: Itz Lopez Chief Complaint: Acute kidney injury, refractory hypotension, hepatic encephalopathy HPI: ?58-year-old patient with underlying history of asthma, COPD, bronchitis, coronary disease, hypoxic respiratory failure leading to tracheostomy placement, obstructive sleep apnea, hep C, alcoholism, type 2 diabetes, angioedema, lower extremity edema, thrombocytopenia, chronic stasis dermatitis wounds among other things.? Patient presented to the emergency room with reported altered mental status, lethargy, weakness and concern for having a diabetic emergency for he has not been eating well at home according to family members.? His had reported that his last alcoholic drink was yesterday morning. Patient was unable to give a history, the ER workup revealed hypotension with blood pressure of 68/30, satting 92% on room air without fever, the patient was given 3 L of IV fluids without improvement of his blood pressure, he also received 2 bottles of albumin, he did not have a white count, his laboratories were significant for sodium 133, potassium 2.3, BUN of 33, creatinine 5.17 when his baseline is 0.8, lactic acid 2.3 which after IV fluids went down to 1.4, phosphorus 5.2, magnesium 1.6, total bili 1.5, bilirubin direct 1.2, ammonia 61, albumin 2.3, lipase 81. Chest x-ray did not show infiltrates, CT of the abdomen and pelvis did show mild edematous changes of the pancreas consistent with acute pancreatitis.? Severe hepatic steatosis with questionable nodular contour of the liver which could represent underlying cirrhosis. ?His urine is positive for barbiturates.? Blood alcohol level not detectable.? Head CT negative.? Given the ongoing hypotension, the patient was admitted to the ICU for further care. ROS:? Unable to obtain Past Medical History:? As above Past Surgical History: Cardiac catheterization Colonoscopy Lumbar spinal fusion Herniorrhaphy Family history: ?His sister and paternal aunt had colon cancer.? Brother had liver cancer.? His dad had coronary vascular disease and cancer. Social History:? Lives in an apartment, chronic alcoholic cirrhosis, smoker, unable to quantify. CODE STATUS: FULL CODE Allergies: NKDA Home Medications: See Med Rec PHYSICAL EXAM: VS: 85/40, 70, 16, 93% on room air. General:? Alert oriented x3 no acute distress; but falls asleep immediately and then becomes confused. Follows basic commands intermittently. Skin:? Diffuse erythematous rash throughout the anterior groin, perineum, buttocks with a slight skin breakdown of the left buttock all consistent with a fungal rash (in a diaper performed). HEENT:? Head is normocephalic, atraumatic, pupils equal round reactive to light accommodation bilaterally.? Buccal mucosa is moist, Neck is supple without lymphadenopathy. Cardiac:? Clear S1-S2, no murmurs rubs or gallops. Pulmonary:? Slight coarseness of the bilateral lungs without rhonchi, rales or wheezes. Abdomen:? Protuberant, positive bowel sounds in all 4 quadrants.? Soft, nontender, no rebound or guarding.? Musculoskeletal:? Moving all 4 extremities upon request a major joints, there is no crepitus or tenderness.? The strength is 5/5 bilaterally and throughout all 4 extremities.? There is no leg edema , no calf tenderness , no leg asymmetry.? Gait not assessed at this point. Neurologic:? As above, unable to fully assess but the patient does have slight asterixis bilateral hands. No focal deficits noted otherwise. Vascular:? 2+ pulses upper and lower extremities distally. SIGNIFICANT LABORATORY DATA:? As above REVIEW OF IMAGES: ?As above EKG REVIEW:? To my view this is normal sinus rhythm ventricular rate 77 beats per minute.? There is no ST elevations, no ST depressions.? QTC 463.? No comparison available. ? ASSESSMENT : 1. Refractory hypotension despite IV fluids likely due to volume depletion and 3rd spacing (no sepsis suspected) 2. Multifactorial acute kidney injury due to ATN in the setting of hypoperfusion, and worsen by hypovolemia and nephrotoxins (baseline creatinine is 0.75) 3. Suspected hepatorenal syndrome 4. Acute pancreatitis 5. Early stages of acute alcohol withdrawal 6. Acute hepatic encephalopathy 7. Acute hypokalemia 8. Acute hyperphosphatemia 9. Pseudo hypocalcemia with corrected calcium of 8.5. 10. Alcoholic hepatitis 11. Hypoalbuminemia 12. Hypoosmolar hypovolemic hyponatremia with third-spacing affect 13. Hypoperfusion related lactic acidosis without evidence of infection or sepsis 14. Diffuse fungal rash of the buttocks, inner thighs, testicular area and anterior groin with slight breakdown of the skin over the left buttock area 15. Chronic thrombocytopenia due to alcoholism 16. Microcytic anemia rule out B12, folate deficiency although likely alcohol related PLAN OF CARE: We will admit the patient, monitor vital signs, I's and O's, gentle IV fluids, rather we need to increase his oncotic pressure and will give him albumin, will place him on Levophed.? Avoiding nephrotoxins and recycle labs in the morning, keep him NPO; he will likely need a central line, will start him on phenobarbital protocol, rectal lactulose, replaced electrolytes, bicarb pushes x 2 and recheck laboratories in the morning, may need a bicarb drip. ?Nystatin powder. ?CIWA protocol and continue with phenobarbital IV p.r.n., if needed in combination with benzodiazepines.? Formal swallow evaluation.? Will start him on folic acid, thiamine IV. ? I do not think he needs antibiotic coverage not even for SBP prophylaxis at this time, he has no fever and no abdominal distention, guarding or rebound. GI PROPHYLAXIS: ?IV ppi DVT PROPHYLAXIS: ?Pneumatic stockings only, patient is a drinker, high-risk of bleeding with anticoagulation therapy Critical care time used for critical evaluation of this patient, diagnosis, treatment and coordination of care, review her records and documentation TOTAL CRITICAL CARE TIME 120 MIN . discussion and coordination with consultants, completely separate from any procedures performed. Patient's care was discussed in detail with Dr. Lopez, who is aware of all the above as well as the plan of care for this patient. [facility] Past Medical History Medical History Pneumonia COPD (chronic obstructive pulmonary disease) Diabetes Nicotine dependence, cigarettes, uncomplicated Tracheostomy care Respiratory failure Diastolic CHF Seizure disorder History of TIA (transient ischemic attack) History of hepatitis C CAD (coronary artery disease) HTN (hypertension) Insulin dependent type 2 diabetes mellitus Diabetic neuropathy Restrictive airway disease KD (obstructive sleep apnea) ETOH abuse Morbid obesity Transaminitis Fatty liver History of colon polyps Obesity Microalbuminuria Foot ulcer, left Fracture of right tibia and fibula Metatarsal bone fracture Family History Family History Father CVD (cardiovascular disease) Colon cancer Mother No problems noted. Brother Liver cancer Paternal Aunt Colon cancer Surgical History Surgical History History of surgery on lower extremity (~2019) History of lumbar spinal fusion History of colonoscopy (~2018) History of hernia repair History of cardiac catheterization (~2018) Social History Social History Household Members: Spouse Household Members Other:: Housing: House Do you presently have visiting nurse or other home services: No Unable to assess alcohol history related to: Unable to respond Alcohol intake: current Alcohol intake frequency: 0-2 drinks per day Alcohol type: beer and hard liquor Patient Tobacco Use Status: Tobacco use Unknown Tobacco use type: Cigarette Years Smoked: onset 18yo, 1-2ppd x 37yrsm now 1/2ppd - 50pyh Second Hand Smoke Exposure: Yes Use of substances other than those prescribed or required for medical reasons: Unable to respond Substance Use Type: Marijuana Currently Displaying Signs/Symptoms of Drug Intoxication Withdrawal: No Advance Directives: Yes Advance Directives on File: Yes Advance Directives Date on File: 03/20/22 Do you have thoughts of harming others: None Do you have a plan to hurt others: No Plan Recently lost weight without trying: Unsure Nutrition Risks: Difficulty swallowing and On aspiration precautions Poor oral hygiene: No service: No Current occupational status: disabled Current occupation: right handed Cognitive needs: No Hearing needs: No Vision needs: No Meds Allergies Allergy/AdvReac Type Severity Reaction Status Date / Time cyclobenzaprine Allergy Unknown RASH Verified 07/05/23 19:57 [From FLEXERIL] penicillin V Allergy Unknown anaphylaxis Verified 07/05/23 19:57 pineapple Allergy Unknown Unknown Verified 07/05/23 19:57 FADIA Inhibitors AdvReac Severe Angioedema Verified 07/05/23 19:57 Active Medications: Current Medications Albumin Human (Kedbumin 25 %) 100 mls @ 133.333 mls/hr IV Q1H JAMEEL Stop: 07/06/23 02:14 Last Admin: 07/06/23 00:53 Dose: 133.33 mls/hr Norepinephrine Bitartrate (Levophed) 8 mg in 250 mls @ 0 mls/hr IV .Q0M JAMEEL; Protocol Home Medications ?Medication ?Instructions ?Recorded ?Confirmed ?Last Taken ?Type aspirin 81 mg tablet,delayed 81 mg PO DAILY 03/17/22 07/06/23 07/05/23 History release duloxetine 30 mg capsule,delayed 1 cap PO BID 03/17/22 07/06/23 07/05/23 History release multivitamin 1 tab PO DAILY 03/17/22 07/06/23 07/05/23 History carbamazepine 200 mg tablet 200 mg PO BID 12/04/22 07/06/23 07/05/23 History pregabalin 200 mg capsule 200 mg PO TID 12/04/22 07/06/23 07/05/23 History albuterol sulfate 90 mcg/actuation 2 puff inhalation Q6H PRN 06/07/23 07/06/23 07/05/23 History aerosol inhaler shortness of breath or wheezing latanoprost 0.005 % eye drops 1 drp ophthalmic (eye) BEDTIME 06/07/23 07/06/23 07/05/23 History lisinopril 10 mg tablet 10 mg PO DAILY 06/07/23 07/06/23 07/05/23 History Physical Exam Vital Signs: Vital Signs: Last Vital Signs Temp 97.5 F 07/05/23 22:10 Pulse 67 07/06/23 01:02 Resp 18 07/06/23 01:02 BP 102/57 L 07/06/23 01:02 Pulse Ox 93 07/06/23 01:02 O2 Del Method Nasal Cannula 07/06/23 01:02 O2 Flow Rate 2 07/06/23 01:02 BMI result Body Mass Index 38.6 Results Labs 07/06/23 05:10 07/06/23 05:10 Labs: Laboratory Results - last 24 hr 07/05/23 07/05/23 07/05/23 19:55 20:20 20:26 MCV MCH MCHC RDW Plt Count MPV Immature Gran % (Auto) Neut % (Auto) Lymph % (Auto) Swain % (Auto) Eos % (Auto) Baso % (Auto) Lymph # (Auto) Swain # (Auto) Eos # (Auto) Baso # (Auto) Abs Immat Gran (auto) Absolute Neuts (auto) Absolute Nucleated RBC Nucleated RBC % (auto) PT INR VBG pH 7.41 VBG pCO2 29 VBG pO2 125 VBG HCO3 19 L VBG O2 Saturation 99.0 VBG Base Excess -3.8 Anion Gap Estim Creat Clear Calc Estimated GFR POC Glucose 191 H Random Glucose Lactic Acid Lactic Acid F/U @ 2Hr Calcium Cancelled Phosphorus Magnesium Total Bilirubin Direct Bilirubin AST ALT Alkaline Phosphatase Ammonia Troponin I High Sens Total Protein Albumin Lipase Urine Color Urine Appearance Urine pH Ur Specific [place] Urine Protein Urine Glucose (UA) Urine Ketones Urine Blood Urine Nitrite Ur Leukocyte Esterase Urine RBC Urine WBC Ur Squamous Epith Cells Urine Bacteria Hyaline Casts Urine Opiates Screen Urine Fentanyl Screen Ur Barbiturates Screen Ur Phencyclidine Scrn Ur Amphetamines Screen U Benzodiazepines Scrn Urine Cocaine Screen U Marijuana (THC) Screen Ethyl Alcohol 07/05/23 07/05/23 07/05/23 20:37 20:50 21:42 MCV 106.9 H MCH 38.1 H MCHC 35.6 RDW 15.9 Plt Count 140 L D MPV 9.8 Immature Gran % (Auto) 1.4 H Neut % (Auto) 70.3 Lymph % (Auto) 11.8 L Swain % (Auto) 12.5 H Eos % (Auto) 3.2 Baso % (Auto) 0.8 Lymph # (Auto) 1.2 Swain # (Auto) 1.2 Eos # (Auto) 0.3 Baso # (Auto) 0.1 Abs Immat Gran (auto) 0.14 H Absolute Neuts (auto) 6.9 Absolute Nucleated RBC 0.000 Nucleated RBC % (auto) 0.0 PT 14.9 H D INR 1.2 H VBG pH VBG pCO2 VBG pO2 VBG HCO3 VBG O2 Saturation VBG Base Excess Anion Gap 17 Estim Creat Clear Calc 21.3 Estimated GFR 11 POC Glucose Random Glucose 176 H Lactic Acid 2.3 H* Lactic Acid F/U @ 2Hr Calcium 7.1 L D Phosphorus 5.2 H Magnesium 1.6 Total Bilirubin 1.5 H Direct Bilirubin 1.2 H AST 83 H ALT 44 H Alkaline Phosphatase 178 H Ammonia 61 H Troponin I High Sens 19.2 Total Protein 5.8 L Albumin 2.3 L Lipase 81 H Urine Color Dark Yellow Urine Appearance Cloudy Urine pH 5.5 Ur Specific [place] 1.015 Urine Protein 30 (1+) H Urine Glucose (UA) Negative Urine Ketones Negative Urine Blood Negative Urine Nitrite Negative Ur Leukocyte Esterase Trace H Urine RBC 0-2 Urine WBC 6-10 H Ur Squamous Epith Cells 11-20 Urine Bacteria None Seen Hyaline Casts 3-5 Urine Opiates Screen Not Detected Urine Fentanyl Screen Not Detected Ur Barbiturates Screen POSITIVE H Ur Phencyclidine Scrn Not Detected Ur Amphetamines Screen Not Detected U Benzodiazepines Scrn Not Detected Urine Cocaine Screen Not Detected U Marijuana (THC) Screen Not Detected Ethyl Alcohol < 10 07/05/23 23:18 MCV MCH MCHC RDW Plt Count MPV Immature Gran % (Auto) Neut % (Auto) Lymph % (Auto) Swain % (Auto) Eos % (Auto) Baso % (Auto) Lymph # (Auto) Swain # (Auto) Eos # (Auto) Baso # (Auto) Abs Immat Gran (auto) Absolute Neuts (auto) Absolute Nucleated RBC Nucleated RBC % (auto) PT INR VBG pH VBG pCO2 VBG pO2 VBG HCO3 VBG O2 Saturation VBG Base Excess Anion Gap Estim Creat Clear Calc Estimated GFR POC Glucose Random Glucose Lactic Acid Lactic Acid F/U @ 2Hr 1.4 Calcium Phosphorus Magnesium Total Bilirubin Direct Bilirubin AST ALT Alkaline Phosphatase Ammonia Troponin I High Sens Total Protein Albumin Lipase Urine Color Urine Appearance Urine pH Ur Specific [place] Urine Protein Urine Glucose (UA) Urine Ketones Urine Blood Urine Nitrite Ur Leukocyte Esterase Urine RBC Urine WBC Ur Squamous Epith Cells Urine Bacteria Hyaline Casts Urine Opiates Screen Urine Fentanyl Screen Ur Barbiturates Screen Ur Phencyclidine Scrn Ur Amphetamines Screen U Benzodiazepines Scrn Urine Cocaine Screen U Marijuana (THC) Screen Ethyl Alcohol Imaging Radiologist's Impressions: Impressions Chest X-Ray 07/05/23 21:35 IMPRESSION: No acute cardiopulmonary process. Head CT 07/05/23 23:12 IMPRESSION: 1. No acute intracranial process seen. 2. Mild cerebral volume loss with mild chronic small vessel ischemic changes.
[2023-07-06] MEDS: Norepinephrine Bitartrate/D5W 8 MG/250 ML PLAST..BAG 12.12 MG IV (02:00)
[2023-07-06] MEDS: Potassium Chloride/H20 10 MEQ/100 ML PIGGYBACK 100 MEQ IV (02:05)
[2023-07-06] MEDS: PHENobarbitaL 100 MG, PHENobarbitaL 60 MG 160 MG PO (02:10)
[2023-07-06] MEDS: Thiamine HCL 100 MG in 0.9 % Sodium Chloride 100 ML 202 MG IV ×2 (02:59→09:16)
--- NOTE | 2023-07-06 03:03 | W.PM.CCHP ---
Procedures Date of Service Date of Service: 07/06/23 Central Line Placement Right IJ: Consent for Procedure: Emergent-no informed consent obtained Time out performed: Yes Sterile Technique Used: Yes Patient placed on monitor/pulse ox: Yes MD prep: mask, gown and gloves Central line prep: Chlorhexidine scrub Local anesthesia used: lidocaine 1% Amount of anesthesia used (ml): 5 Ultrasound used for placement: Yes Central line lumen inserted: triple Post procedure: sutured in place, good blood return, all ports aspirated, flushed, capped and sterile dressing applied Post procedure x-ray: tip of catheter in good position and no pneumothorax seen Patient tolerated procedure: well and no complications Complications: none
[2023-07-06] MEDS: Dextrose 5 % and Lactated Ring 1,000 ML 100 ML IVCONT (03:55)
[2023-07-06] MEDS: Potassium Chloride/H20 40 MEQ/100 ML PIGGYBACK 100 MEQ IV ×6 (04:03→22:36)
[2023-07-06] MEDS: Sodium Bicarbonate 8.4% 50 MEQ/50 ML SYRINGE 100 MEQ IVPUSH ×2 (05:08→05:54)
[2023-07-06] MEDS: Albumin Human 25 % 100 ML IV ×4 (05:08→18:10)
[2023-07-06 05:17] LABS: VBG Base Excess -3.3 mmol/L; VBG HCO3 21 mmol/L (22-26); VBG pCO2 38 mmHg; VBG pH 7.35 (7.32-7.43); VBG pO2 59 mmHg
[2023-07-06 05:33] LABS: Venous Blood Gas Refer to POC result
[2023-07-06 06:20] LABS: MANUAL DIFF FLAG NO
--- NOTE | 2023-07-06 06:22 | HO.SKINPHOTO ---
Location: Bilateral Buttocks Category: Excoriation/MASD Location: Abdominal Fold/Bilateral Groin Category: Excoriation/MASD
--- NOTE | 2023-07-06 06:35 | PC.NURSE ---
Pt admitted to ICU from ED at approx 0130. Upon initial assessment, pt lethargic, following simple commands, quickly falling asleep when not stimulated and during conversation. Afebrile. NSR on tele, HR 60s. SBP 80s, MAP < 65. Levophed ordered and started per MAY. CVC TL placed to R IJ by CHEMA Bradshaw, placement confirmed by pCXR. 2L NC required to maintain SpO2 > 92%, rhonchi auscultated throughout. Failed nursing bedside swallow, PA aware. Incontinent of stool. Indwelling catheter in place, oliguric, UOP as charted. Electrolytes replaced per MAY. Multiple skin integrity concerns- pictures uploaded in chart. At approx 0600- pt becoming more alert and conversing appropriately/watching TV. Bed alarm on and locked in lowest position.
[2023-07-06 07:06] LABS: Basophils Absolute Auto 0.1 X10*3/uL (0.0-0.2); Basophils Percent Auto 0.8 % (0-2); Eosinophils Absolute Auto 0.2 X10*3/uL (0.0-0.4); Eosinophils Percent Auto 2.6 % (0-4); Hematocrit 34.6 % (42.0-52.0); Hemoglobin 12.1 g/dl (14.0-18.0); Imm Gran Abs Auto 0.05 X10*3/uL (0.00-0.03); Imm Gran Pct Auto 0.6 % (0.0-0.4); Lymphocytes Absolute Auto 1.1 X10*3/uL (1.2-4.9); Lymphocytes Percent Auto 12.1 % (20-40); Mean Corpuscular Hemoglobin 37.5 pg (27.0-33.0); Mean Corpuscular Volume 107.1 fL (80.0-98.0); Mean Platelet Volume 9.8 fL (9.4-12.4); Monocytes Percent Auto 11.1 % (2-11); Neutrophils Absolute Auto 6.4 x10*3/uL (2.0-8.3); Neutrophils Percent Auto 72.8 % (45-73); Platelet Count 135 X10*3/uL (160-400); Red Blood Count 3.23 X10*6/uL (4.60-5.80); Red Cell Distribution Width 15.9 % (11.0-16.0); White Blood Count 8.8 X10*3/uL (4.8-10.8)
--- NOTE | 2023-07-06 09:11 | PHA.MEDREC ---
Pharmacy Consult ? Medication Reconciliation Pharmacy has completed the medication reconciliation. SPOKE TO WHO KNEW MEDICATIONS
[2023-07-06] MEDS: Nystatin Powder 15 GM BOTTLE 1 APPL TOPICAL ×3 (09:18→22:39)
[2023-07-06 09:28] LABS: Potassium 2.3 mmol/L (3.3-5.1)
[2023-07-06] MEDS: Folic Acid 1 MG in 0.9 % Sodium Chloride 50 ML 100.4 MG IV (09:41)
[2023-07-06 11:02] LABS: Anion Gap 23 (12-20); Blood Urea Nitrogen 35 mg/dL (9-16); Carbon Dioxide 16 mmol/L (22-29); Chloride 94 mmol/L (96-108); Creatinine Clr Calc Pharmacy 22.8; Estimated Glomerular Filt Rate 13
[2023-07-06 11:03] LABS: Alanine Aminotransferase 34 U/L (0-40); Albumin Level 3.2 g/dL (3.5-5.0); Alkaline Phosphatase 167 U/L (39-117); Aspartate Amino Transferase 68 U/L (5-37); Bilirubin Total 1.6 mg/dL (0.0-1.0); Calcium 7.4 mg/dL (8.4-10.2); Glucose Random 172 mg/dL (60-115); Magnesium 1.6 mg/dL (1.6-2.6); Phosphorus 5.4 mg/dL (2.7-4.5); Total Protein 6.5 g/dL (6.5-8.0)
[2023-07-06 11:06] LABS: Sodium 133 mmol/L (135-145)
[2023-07-06] MEDS: cefTRIAXone sodium 1 GM in 0.9 % Sodium Chloride 50 ML IV (11:30)
[2023-07-06] MEDS: Sodium Bicarbonate 8.4% 100 MEQ in Dextrose 5 % 900 ML IV (12:52)
--- NOTE | 2023-07-06 15:52 | MHC.CM.PN ---
Pt admitted to ICU: on pressors: unable to participate in CM assessment d/t lethargy: Call placed to HCP/spouse Elham: Elham states pt is minimally functional at home without any services. She states she is his primary technical healthcare consultant. I do everything, he can't walk, dress himself or wash, I do all of it Pt has never been to STR and per Elham, lives on the couch. He can stand w/a walker to transfer from couch to chair. Elham feels she is not able to care for pt as she works and is overwhelmed by pt's care needs. Pt would benefit from a PT eval once medically stable: broad STR referrals based as well as [facility] referral made. HCP on file, PCP Amarilis Gonzalez CM to follow.
[2023-07-06 17:38] LABS: Glucose, Whole Blood 221 mg/dL (60-115)
[2023-07-06 22:00] LABS: Alanine Aminotransferase 29 U/L (0-40); Albumin Level 3.7 g/dL (3.5-5.0); Alkaline Phosphatase 133 U/L (39-117); Anion Gap 20 (12-20); Aspartate Amino Transferase 56 U/L (5-37); Bilirubin Total 1.3 mg/dL (0.0-1.0); Blood Urea Nitrogen 32 mg/dL (9-16); Calcium 7.4 mg/dL (8.4-10.2); Carbon Dioxide 27 mmol/L (22-29); Chloride 95 mmol/L (96-108); Creatinine Clr Calc Pharmacy 28.5; Estimated Glomerular Filt Rate 17; Glucose Random 241 mg/dL (60-115); Magnesium 1.5 mg/dL (1.6-2.6); Potassium 2.5 mmol/L (3.3-5.1); Sodium 139 mmol/L (135-145); Total Protein 6.4 g/dL (6.5-8.0)
[2023-07-06] MEDS: Lactated Ringers 1,000 ML 100 ML IVCONT (22:32)
[2023-07-06] MEDS: Calcium Gluconate/NaCl,Iso-Osm 1 GM/50 ML PLAST..BAG IV (22:36)
[2023-07-06] MEDS: Magnesium Sulfate/H2O 2 GM/50 ML PIGGYBACK IV (22:36)
[2023-07-07] VITALS (25 sets, daily range): BP systolic 108–141; BP diastolic 57–78; PULSE 81–101; RESP 11–25; TEMP 36.2–37.1; O2SAT 89–95; BMI 36.5
[2023-07-07] MEDS: Albumin Human 25 % 100 ML IV ×2 (01:15→05:15)
[2023-07-07 05:18] LABS: VBG Base Excess 7.7 mmol/L; VBG HCO3 31 mmol/L (22-26); VBG pCO2 42 mmHg; VBG pH 7.48 (7.32-7.43); VBG pO2 44 mmHg
[2023-07-07 05:19] LABS: Basophils Percent Auto 0.5 % (0-2); Eosinophils Absolute Auto 0.2 X10*3/uL (0.0-0.4); Eosinophils Percent Auto 2.7 % (0-4); Hematocrit 32.5 % (42.0-52.0); Hemoglobin 11.1 g/dl (14.0-18.0); Imm Gran Abs Auto 0.02 X10*3/uL (0.00-0.03); Imm Gran Pct Auto 0.3 % (0.0-0.4); Lymphocytes Absolute Auto 0.6 X10*3/uL (1.2-4.9); Lymphocytes Percent Auto 10.3 % (20-40); Mean Corpuscular HGB Conc 34.2 g/dl (31.0-36.0); Mean Corpuscular Volume 108.3 fL (80.0-98.0); Mean Platelet Volume 9.5 fL (9.4-12.4); Monocytes Absolute Auto 0.7 X10*3/uL (0.1-1.2); Monocytes Percent Auto 10.5 % (2-11); Neutrophils Absolute Auto 4.7 x10*3/uL (2.0-8.3); Neutrophils Percent Auto 75.7 % (45-73); Red Cell Distribution Width 16.5 % (11.0-16.0); White Blood Count 6.2 X10*3/uL (4.8-10.8)
[2023-07-07 05:20] LABS: Venous Blood Gas Refer to POC result
[2023-07-07 05:21] LABS: Platelet Count 86 X10*3/uL (160-400)
[2023-07-07 05:22] LABS: MANUAL DIFF FLAG SCAN
[2023-07-07 05:41] LABS: Alanine Aminotransferase 28 U/L (0-40); Albumin Level 3.7 g/dL (3.5-5.0); Alkaline Phosphatase 136 U/L (39-117); Anion Gap 19 (12-20); Aspartate Amino Transferase 56 U/L (5-37); Bilirubin Total 1.3 mg/dL (0.0-1.0); Blood Urea Nitrogen 30 mg/dL (9-16); Calcium 7.8 mg/dL (8.4-10.2); Carbon Dioxide 27 mmol/L (22-29); Chloride 97 mmol/L (96-108); Creatinine Clr Calc Pharmacy 33.2; Estimated Glomerular Filt Rate 20; Glucose Random 181 mg/dL (60-115); Magnesium 1.7 mg/dL (1.6-2.6); Phosphorus 3.3 mg/dL (2.7-4.5); Potassium 2.7 mmol/L (3.3-5.1); SLIDE REVIEW VERIFIED; Sodium 140 mmol/L (135-145); Total Protein 6.5 g/dL (6.5-8.0)
[2023-07-07] MEDS: Potassium Chloride Packet 20 MEQ PACKET 40 MEQ PO ×2 (05:59→20:43)
[2023-07-07] MEDS: Potassium Chloride/H20 40 MEQ/100 ML PIGGYBACK 50 MEQ IV (06:00)
[2023-07-07] MEDS: Lactated Ringers 1,000 ML 100 ML IVCONT (06:16)
[2023-07-07] MEDS: Folic Acid 1 MG in 0.9 % Sodium Chloride 50 ML 100.4 MG IV (07:25)
[2023-07-07] MEDS: Nystatin Powder 15 GM BOTTLE 1 APPL TOPICAL ×3 (07:39→20:58)
--- NOTE | 2023-07-07 07:57 | PM.CCPN ---
Subjective Subjective Date of Service: 07/07/23 Critical Care Time (minutes): 60 Physical Exam Vital Signs: Vital Signs: Last Vital Signs Temp 97.9 F 07/07/23 04:00 Pulse 86 07/07/23 07:00 Resp 15 07/07/23 07:00 BP 114/66 07/07/23 07:00 Pulse Ox 91 L 07/07/23 07:00 O2 Del Method Nasal Cannula 07/07/23 07:00 O2 Flow Rate 2 07/07/23 07:00 BMI result Body Mass Index 36.5 Const: General: cooperative, healthy appearing, comfortable, no acute distress, well developed, alert and awake Orientation/consciousness: patient oriented x3 HEENT: Head: Yes normal to inspection, Yes normocephalic and Yes atraumatic Eyes: General: appearance normal, both eyes and all related structures Neck: Other: appreciable tracheostomy scar Neck: Yes full ROM, Yes no meningeal signs, Yes trachea midline and Yes supple Chest: Chest palpation & inspection: normal inspection of the chest Resp: Other: some appreciable rhonchi; no appreciable rales, wheezing Cardio: Rate: regular rate Rhythm: regular rhythm GI: Other: rotund, though soft; no appreciable tenderness to palpation throughout Inspection: Yes normal to inspection : Male General Exam: Yes normal external exam Skin: General skin exam: no rashes or lesions noted Neuro: General: patient oriented x3, tone normal, moves all extremities, no meningeal signs and no focal motor deficits Extrem: General: Yes normal to inspection, Yes full ROM and Yes capillary refill normal Psych: Appearance: grossly normal Objective Data Labs 07/07/23 05:05 07/07/23 05:05 Labs: Laboratory Results - last 24 hr 07/06/23 07/06/23 07/06/23 05:10 17:34 21:12 WBC RBC Hgb Hct MCV MCH MCHC RDW Plt Count MPV Immature Gran % (Auto) Neut % (Auto) Lymph % (Auto) [place] % (Auto) Eos % (Auto) Baso % (Auto) Lymph # (Auto) [place] # (Auto) Eos # (Auto) Baso # (Auto) Abs Immat Gran (auto) Absolute Neuts (auto) Absolute Nucleated RBC Nucleated RBC % (auto) Smear Tech's Comments VBG pH VBG pCO2 VBG pO2 VBG HCO3 VBG O2 Saturation VBG Base Excess Sodium 133 L 139 Potassium 2.3 L* 2.5 L* Chloride 94 L 95 L Carbon Dioxide 16 L 27 Anion Gap 23 H 20 BUN 35 H D 32 H Creatinine 4.70 H* 3.76 H Estim Creat Clear Calc 22.8 28.5 Estimated GFR 13 17 POC Glucose 221 H Random Glucose 172 H D 241 H Calcium 7.4 L 7.4 L Phosphorus 5.4 H 4.0 Magnesium 1.6 1.5 L Total Bilirubin 1.6 H 1.3 H AST 68 H 56 H ALT 34 29 Alkaline Phosphatase 167 H 133 H Total Protein 6.5 6.4 L Albumin 3.2 L 3.7 07/07/23 07/07/23 05:05 05:10 WBC 6.2 RBC 3.00 L Hgb 11.1 L Hct 32.5 L MCV 108.3 H MCH 37.0 H MCHC 34.2 RDW 16.5 H Plt Count 86 L D MPV 9.5 Immature Gran % (Auto) 0.3 Neut % (Auto) 75.7 H Lymph % (Auto) 10.3 L [place] % (Auto) 10.5 Eos % (Auto) 2.7 Baso % (Auto) 0.5 Lymph # (Auto) 0.6 L [place] # (Auto) 0.7 Eos # (Auto) 0.2 Baso # (Auto) 0.0 Abs Immat Gran (auto) 0.02 Absolute Neuts (auto) 4.7 Absolute Nucleated RBC 0.000 Nucleated RBC % (auto) 0.0 Smear Tech's Comments VERIFIED VBG pH 7.48 H VBG pCO2 42 VBG pO2 44 VBG HCO3 31 H VBG O2 Saturation 73.0 VBG Base Excess 7.7 Sodium 140 Potassium 2.7 L* Chloride 97 Carbon Dioxide 27 Anion Gap 19 BUN 30 H Creatinine 3.23 H Estim Creat Clear Calc 33.2 Estimated GFR 20 POC Glucose Random Glucose 181 H Calcium 7.8 L Phosphorus 3.3 Magnesium 1.7 Total Bilirubin 1.3 H AST 56 H ALT 28 Alkaline Phosphatase 136 H Total Protein 6.5 Albumin 3.7 Microbiology Microbiology Results: Microbiology 07/05/23 20:37 Blood - Venous Blood Culture - Preliminary No growth after 24 hours. 07/05/23 20:20 Blood - Venous Blood Culture - Preliminary No growth after 24 hours. 07/05/23 20:50 Urine Catheterized - Cole Catheter Urine Culture - Preliminary No growth to date. Progress Note: A&P Assessment and plan (1) Pancreatitis: Status: Acute (2) ETOH abuse: Status: Acute (3) Acute kidney injury: Status: Acute (4) Diabetes: Status: Acute Plan Patient is a 58 Y M with asthma/COPD, c/b chronic hypoxic respiratory failure, and angioedema, s/p prior trach, diabetes mellitus, alcohol misuse, likely c/b cirrhosis, presenting w/ encephalopathy, found to be hypotensive, possible pancreatitis, admitted ICU N: encephalopathy, likely toxic/metabolic, improved; alcohol misuse, CIWA protocol CV: hypotension, likely d/t acute pancreatitis, dehydration, improved R: chronic hypoxic respiratory failure, prior trach, decannulated GI: acute pancreatitis; alcohol misuse likely c/b cirrhosis : acute renal insufficiency, improving; to continue to monitor renal indicies H: anemia, thrombocytopenia, to continue to monitor; chemical DVT prophylaxis if/when platelets > 100 ID: given alcohol misuses, likely c/b cirrhosis, empiric ceftraixone E: diabetes mellitus, insulin sliding scale Quality Stroke Does the patient have a stroke diagnosis?: No VTE Prior VTE?: No VTE Risk Level:: Medical - moderate - high VTE Device Contraindication: N/A - Device Ordered VTE Drug Contraindication: Treatment Not Tolerated
[2023-07-07 08:47] LABS: Glucose, Whole Blood 161 mg/dL (60-115)
[2023-07-07 11:11] LABS: Glucose, Whole Blood 191 mg/dL (60-115)
[2023-07-07 11:18] LABS: OBS Int Ctl Valid YES; OBS1 NEGATIVE (NEGATIVE)
[2023-07-07] MEDS: cefTRIAXone sodium 1 GM in 0.9 % Sodium Chloride 50 ML IV (12:00)
[2023-07-07] MEDS: Insulin Lispro 100 UNIT/ML 3 ML VIAL SUBCUT ×3 (12:04→20:44)
[2023-07-07 12:21] LABS: CDiff Gene PCR POSITIVE (Negative)
[2023-07-07 12:43] LABS: CDIFF Internal ctrl Dots and bkg OK (V); CDiff Toxin Negative (Negative)
[2023-07-07] MEDS: PHENobarbitaL sodium 130 MG/ML IM ONCE 310 MG IM (12:53)
[2023-07-07 13:29] LABS: Anion Gap 15 (12-20); Blood Urea Nitrogen 28 mg/dL (9-16); Calcium 7.8 mg/dL (8.4-10.2); Carbon Dioxide 28 mmol/L (22-29); Chloride 98 mmol/L (96-108); Creatinine Clr Calc Pharmacy 43.6; Estimated Glomerular Filt Rate 27; Glucose Random 186 mg/dL (60-115); Potassium 2.9 mmol/L (3.3-5.1); Sodium 138 mmol/L (135-145)
[2023-07-07] MEDS: Potassium Chloride/H20 40 MEQ/100 ML PIGGYBACK 100 MEQ IV ×2 (14:26→20:39)
--- NOTE | 2023-07-07 15:43 | MHC.CM.PN ---
PT CONTINUES TO REQUIRE ICU LEVEL OF CARE. [facility] FOLLOWING. WILL NEED PT TO EVAL WHEN ABLE TO TOLERATE. CM WILL CONTINUE TO FOLLOW FOR ANY CHANGES IN DC PLAN/NEEDS.
[2023-07-07 16:36] LABS: Glucose, Whole Blood 187 mg/dL (60-115)
[2023-07-07] MEDS: PHENobarbitaL sodium 130 MG/ML VIAL IM Q3Hx2 232 MG IM ×2 (16:52→19:21)
[2023-07-07 19:42] LABS: Anion Gap 19 (12-20); Blood Urea Nitrogen 24 mg/dL (9-16); Calcium 7.8 mg/dL (8.4-10.2); Carbon Dioxide 26 mmol/L (22-29); Chloride 99 mmol/L (96-108); Creatinine Clr Calc Pharmacy 51.5; Estimated Glomerular Filt Rate 33; Glucose Random 177 mg/dL (60-115); Sodium 141 mmol/L (135-145)
[2023-07-07 20:27] LABS: Glucose, Whole Blood 181 mg/dL (60-115)
[2023-07-07 20:29] LABS: Lipase 174 U/L (8-78); Magnesium 1.5 mg/dL (1.6-2.6); Phosphorus 2.9 mg/dL (2.7-4.5)
[2023-07-07] MEDS: Magnesium Sulfate/H2O 2 GM/50 ML PIGGYBACK IV (20:33)
[2023-07-07] MEDS: Calcium Gluconate/NaCl,Iso-Osm 2 GM/100 ML PLAST..BAG IV (20:35)
[2023-07-07] MEDS: metroNIDAZOLE 500 MG TABLET PO (20:44)
[2023-07-08] VITALS (19 sets, daily range): BP systolic 106–154; BP diastolic 65–90; PULSE 75–99; RESP 9–17; TEMP 36.4–37.2; O2SAT 90–99
[2023-07-08] MEDS: metroNIDAZOLE/NS 500 MG/100 ML PIGGYBACK 100 MG IV ×3 (04:29→19:32)
[2023-07-08 05:30] LABS: VBG Base Excess 6.4 mmol/L; VBG HCO3 30 mmol/L (22-26); VBG pCO2 43 mmHg; VBG pH 7.46 (7.32-7.43); VBG pO2 48 mmHg
[2023-07-08 05:46] LABS: MANUAL DIFF FLAG NO
[2023-07-08 06:00] LABS: Basophils Percent Auto 0.5 % (0-2); Eosinophils Absolute Auto 0.2 X10*3/uL (0.0-0.4); Eosinophils Percent Auto 1.9 % (0-4); Hematocrit 35.3 % (42.0-52.0); Hemoglobin 12.3 g/dl (14.0-18.0); Imm Gran Abs Auto 0.05 X10*3/uL (0.00-0.03); Imm Gran Pct Auto 0.6 % (0.0-0.4); Lymphocytes Absolute Auto 0.7 X10*3/uL (1.2-4.9); Lymphocytes Percent Auto 8.3 % (20-40); Mean Corpuscular HGB Conc 34.8 g/dl (31.0-36.0); Mean Corpuscular Hemoglobin 38.2 pg (27.0-33.0); Mean Corpuscular Volume 109.6 fL (80.0-98.0); Mean Platelet Volume 10.2 fL (9.4-12.4); Monocytes Absolute Auto 0.7 X10*3/uL (0.1-1.2); Monocytes Percent Auto 8.5 % (2-11); Neutrophils Absolute Auto 6.9 x10*3/uL (2.0-8.3); Neutrophils Percent Auto 80.2 % (45-73); Platelet Count 89 X10*3/uL (160-400); Red Blood Count 3.22 X10*6/uL (4.60-5.80); Red Cell Distribution Width 16.7 % (11.0-16.0); White Blood Count 8.5 X10*3/uL (4.8-10.8)
[2023-07-08 06:08] LABS: Anion Gap 17 (12-20); Blood Urea Nitrogen 21 mg/dL (9-16); Calcium 8.2 mg/dL (8.4-10.2); Carbon Dioxide 27 mmol/L (22-29); Chloride 98 mmol/L (96-108); Creatinine Clr Calc Pharmacy 71.5; Estimated Glomerular Filt Rate 48; Glucose Random 235 mg/dL (60-115); Potassium 3.5 mmol/L (3.3-5.1); Sodium 138 mmol/L (135-145)
[2023-07-08 06:57] LABS: Lipase 214 U/L (8-78); Magnesium 1.6 mg/dL (1.6-2.6)
[2023-07-08 07:26] LABS: Glucose, Whole Blood 212 mg/dL (60-115)
[2023-07-08] MEDS: PHENobarbitaL 30 MG TABLET 60 MG PO (07:43)
[2023-07-08] MEDS: Insulin Lispro 100 UNIT/ML 3 ML VIAL SUBCUT ×3 (07:43→16:24)
[2023-07-08] MEDS: Nystatin Powder 15 GM BOTTLE 1 APPL TOPICAL ×3 (07:44→19:51)
--- NOTE | 2023-07-08 08:08 | PM.CCPN ---
Subjective Subjective Date of Service: 07/08/23 Interval History: no significant overnight events Critical Care Time (minutes): 60 Physical Exam Vital Signs: Vital Signs: Last Vital Signs Temp 98.7 F 07/07/23 23:00 Pulse 94 07/08/23 07:00 Resp 13 07/08/23 07:00 BP 127/75 07/08/23 07:00 Pulse Ox 94 07/08/23 07:00 O2 Del Method Nasal Cannula 07/08/23 07:00 O2 Flow Rate 2 07/08/23 07:00 BMI result Body Mass Index 36.5 Const: General: cooperative, comfortable, no acute distress, well developed, alert, awake and Physically active Orientation/consciousness: patient oriented x3 HEENT: Head: Yes normal to inspection, Yes normocephalic and Yes atraumatic Eyes: General: appearance normal, both eyes and all related structures Neck: Neck: Yes normal visual inspection, Yes full ROM and Yes supple Chest: Chest palpation & inspection: normal inspection of the chest Resp: Other: no appreciable rales, rhonchi, wheezing Effort & Inspection: normal respiratory effort Cardio: Rate: regular rate Rhythm: regular rhythm GI: Other: protuberant, though soft, compressible Inspection: Yes normal to inspection, No Abdominal wall edema and No distended Palpation (GI): Soft to palpation, not firm, nontender, no guarding and not rigid Skin: General skin exam: no rashes or lesions noted Neuro: General: patient oriented x3, moves all extremities and no focal motor deficits Extrem: General: Yes normal to inspection, Yes capillary refill normal and Yes no clubbing, cyanosis or edema Psych: Appearance: grossly normal Objective Data Labs 07/08/23 05:24 07/08/23 05:24 Labs: Laboratory Results - last 24 hr 07/07/23 07/07/23 07/07/23 08:41 10:56 10:57 WBC RBC Hgb Hct MCV MCH MCHC RDW Plt Count MPV Immature Gran % (Auto) Neut % (Auto) Lymph % (Auto) [place] % (Auto) Eos % (Auto) Baso % (Auto) Lymph # (Auto) [place] # (Auto) Eos # (Auto) Baso # (Auto) Abs Immat Gran (auto) Absolute Neuts (auto) Absolute Nucleated RBC Nucleated RBC % (auto) VBG pH VBG pCO2 VBG pO2 VBG HCO3 VBG O2 Saturation VBG Base Excess Sodium Potassium Chloride Carbon Dioxide Anion Gap BUN Creatinine Estim Creat Clear Calc Estimated GFR POC Glucose 161 H Random Glucose Calcium Phosphorus Magnesium Lipase Stool Occult Blood NEGATIVE C. difficile Tox B Gene POSITIVE A* C. difficile Toxin A&B Negative C. difficile Interpret SEE NOTE 07/07/23 07/07/23 07/07/23 11:08 12:56 16:31 WBC RBC Hgb Hct MCV MCH MCHC RDW Plt Count MPV Immature Gran % (Auto) Neut % (Auto) Lymph % (Auto) [place] % (Auto) Eos % (Auto) Baso % (Auto) Lymph # (Auto) [place] # (Auto) Eos # (Auto) Baso # (Auto) Abs Immat Gran (auto) Absolute Neuts (auto) Absolute Nucleated RBC Nucleated RBC % (auto) VBG pH VBG pCO2 VBG pO2 VBG HCO3 VBG O2 Saturation VBG Base Excess Sodium 138 Potassium 2.9 L* Chloride 98 Carbon Dioxide 28 Anion Gap 15 BUN 28 H Creatinine 2.46 H Estim Creat Clear Calc 43.6 Estimated GFR 27 POC Glucose 191 H 187 H Random Glucose 186 H Calcium 7.8 L Phosphorus Magnesium Lipase Stool Occult Blood C. difficile Tox B Gene C. difficile Toxin A&B C. difficile Interpret 07/07/23 07/07/23 07/08/23 19:05 20:24 05:23 WBC RBC Hgb Hct MCV MCH MCHC RDW Plt Count MPV Immature Gran % (Auto) Neut % (Auto) Lymph % (Auto) [place] % (Auto) Eos % (Auto) Baso % (Auto) Lymph # (Auto) [place] # (Auto) Eos # (Auto) Baso # (Auto) Abs Immat Gran (auto) Absolute Neuts (auto) Absolute Nucleated RBC Nucleated RBC % (auto) VBG pH 7.46 H VBG pCO2 43 VBG pO2 48 VBG HCO3 30 H VBG O2 Saturation 77.0 VBG Base Excess 6.4 Sodium 141 Potassium 3.0 L Chloride 99 Carbon Dioxide 26 Anion Gap 19 BUN 24 H Creatinine 2.08 H Estim Creat Clear Calc 51.5 Estimated GFR 33 POC Glucose 181 H Random Glucose 177 H Calcium 7.8 L Phosphorus 2.9 Magnesium 1.5 L Lipase 174 H Stool Occult Blood C. difficile Tox B Gene C. difficile Toxin A&B C. difficile Interpret 07/08/23 07/08/23 05:24 07:14 WBC 8.5 RBC 3.22 L Hgb 12.3 L Hct 35.3 L MCV 109.6 H MCH 38.2 H MCHC 34.8 RDW 16.7 H Plt Count 89 L MPV 10.2 Immature Gran % (Auto) 0.6 H Neut % (Auto) 80.2 H Lymph % (Auto) 8.3 L [place] % (Auto) 8.5 Eos % (Auto) 1.9 Baso % (Auto) 0.5 Lymph # (Auto) 0.7 L [place] # (Auto) 0.7 Eos # (Auto) 0.2 Baso # (Auto) 0.0 Abs Immat Gran (auto) 0.05 H Absolute Neuts (auto) 6.9 Absolute Nucleated RBC 0.000 Nucleated RBC % (auto) 0.0 VBG pH VBG pCO2 VBG pO2 VBG HCO3 VBG O2 Saturation VBG Base Excess Sodium 138 Potassium 3.5 Chloride 98 Carbon Dioxide 27 Anion Gap 17 BUN 21 H Creatinine 1.50 H Estim Creat Clear Calc 71.5 Estimated GFR 48 POC Glucose 212 H Random Glucose 235 H Calcium 8.2 L Phosphorus Magnesium 1.6 Lipase 214 H Stool Occult Blood C. difficile Tox B Gene C. difficile Toxin A&B C. difficile Interpret Microbiology Microbiology Results: Microbiology 07/05/23 20:37 Blood - Venous Blood Culture - Preliminary No growth after 48 hours. 07/05/23 20:20 Blood - Venous Blood Culture - Preliminary No growth after 48 hours. 07/05/23 20:50 Urine Catheterized - Cole Catheter Urine Culture - Final No growth. Progress Note: A&P Assessment and plan (1) Pancreatitis: Status: Acute (2) Acute kidney injury: Status: Acute (3) COPD (chronic obstructive pulmonary disease): Status: Acute (4) Diabetes: Status: Acute (5) Thrombocytopenia: Status: Acute Plan Patient is a 58 Y M with asthma/COPD, c/b chronic hypoxic respiratory failure, and angioedema, s/p prior trach, diabetes mellitus, alcohol misuse, likely c/b cirrhosis, presenting w/ encephalopathy, found to be hypotensive, possible pancreatitis, admitted ICU N: encephalopathy, likely toxic/metabolic, improved; alcohol misuse, CIWA protocol CV: hypotension, likely d/t acute pancreatitis, dehydration, improved R: chronic hypoxic respiratory failure, prior trach, decannulated GI: acute pancreatitis; c. diff infection; alcohol misuse likely c/b cirrhosis : acute renal insufficiency, improving; to continue to monitor renal indices H: anemia, thrombocytopenia, to continue to monitor; chemical DVT prophylaxis if/when platelets > 100 ID: c. diff infection, metronidazole; given alcohol misuse, likely c/b cirrhosis, empiric ceftriaxone E: diabetes mellitus, insulin sliding scale Quality Stroke Does the patient have a stroke diagnosis?: No VTE Prior VTE?: No VTE Risk Level:: Medical - moderate - high VTE Device Contraindication: N/A - Device Ordered VTE Drug Contraindication: Treatment Not Tolerated
[2023-07-08] MEDS: Nicotine 14 MG PATCH.TD24 TRANSDERMA (10:29)
[2023-07-08] MEDS: Folic Acid 1 MG in 0.9 % Sodium Chloride 50 ML 100 MG IV (10:30)
--- NOTE | 2023-07-08 11:09 | PM.EVENT ---
Event Note Date of Service: 07/08/23 Event Note: Discussed case with ICU attending, patient admitted initially for hypotension requiring pressors. Diagnose pancreatitis, hepatorenal syndrome, C diff. patient is hemodynamically stable at this time no longer requiring pressors. Time Spent With Patient Time: Total time managing care of this patient today ____ minutes.
[2023-07-08 11:34] LABS: Glucose, Whole Blood 240 mg/dL (60-115)
[2023-07-08] MEDS: cefTRIAXone sodium 1 GM in 0.9 % Sodium Chloride 50 ML IV (11:49)
[2023-07-08] MEDS: Acetaminophen 325 MG TABLET 650 MG PO (15:55)
--- NOTE | 2023-07-08 16:10 | MHC.CM.PN ---
Pt making clinical progress: has been downgraded - + C. diff and still on O2 via n/c. D/C plan unfinalized: pt may need STR prior to return to home w/spouse. PT eval will be needed. CM to follow
[2023-07-08 16:12] LABS: Glucose, Whole Blood 224 mg/dL (60-115)
[2023-07-08] MEDS: Heparin Sodium,Porcine 5,000 UNIT/ML VIAL 5000 UNIT SUBCUT (16:24)
[2023-07-08] MEDS: DULoxetine HCl 30 MG CAPSULE.DR PO (19:51)
[2023-07-08] MEDS: carBAMazepine 200 MG TABLET PO (19:51)
[2023-07-08] MEDS: Latanoprost 0.005 % Ophth Sol 2.5 ML DROPS 1 DROP EYE-BOTH (19:51)
[2023-07-08 20:08] LABS: Glucose, Whole Blood 182 mg/dL (60-115)
[2023-07-09] VITALS (10 sets, daily range): BP systolic 101–137; BP diastolic 42–85; PULSE 69–78; RESP 11–21; TEMP 36.3–37.4; O2SAT 91–96
[2023-07-09] MEDS: metroNIDAZOLE/NS 500 MG/100 ML PIGGYBACK 100 MG IV ×3 (03:49→20:55)
[2023-07-09] MEDS: Heparin Sodium,Porcine 5,000 UNIT/ML VIAL 5000 UNIT SUBCUT ×2 (03:49→15:26)
[2023-07-09 06:56] LABS: Basophils Absolute Auto 0.1 X10*3/uL (0.0-0.2); Basophils Percent Auto 0.7 % (0-2); Eosinophils Absolute Auto 0.2 X10*3/uL (0.0-0.4); Hematocrit 35.2 % (42.0-52.0); Hemoglobin 12.1 g/dl (14.0-18.0); Imm Gran Abs Auto 0.03 X10*3/uL (0.00-0.03); Imm Gran Pct Auto 0.4 % (0.0-0.4); Lymphocytes Absolute Auto 0.8 X10*3/uL (1.2-4.9); Lymphocytes Percent Auto 10.7 % (20-40); MANUAL DIFF FLAG NO; Mean Corpuscular HGB Conc 34.4 g/dl (31.0-36.0); Mean Corpuscular Hemoglobin 37.2 pg (27.0-33.0); Mean Corpuscular Volume 108.3 fL (80.0-98.0); Monocytes Absolute Auto 0.7 X10*3/uL (0.1-1.2); Monocytes Percent Auto 9.2 % (2-11); Neutrophils Absolute Auto 5.8 x10*3/uL (2.0-8.3); Red Blood Count 3.25 X10*6/uL (4.60-5.80); White Blood Count 7.5 X10*3/uL (4.8-10.8)
[2023-07-09 06:57] LABS: Platelet Count 73 X10*3/uL (160-400)
[2023-07-09 07:24] LABS: Anion Gap 15 (12-20); Blood Urea Nitrogen 14 mg/dL (9-16); Carbon Dioxide 28 mmol/L (22-29); Chloride 98 mmol/L (96-108); Creatinine Clr Calc Pharmacy 116.6; Estimated Glomerular Filt Rate > 60; Glucose Random 193 mg/dL (60-115); Potassium 2.9 mmol/L (3.3-5.1); Sodium 138 mmol/L (135-145)
--- NOTE | 2023-07-09 07:31 | P.PNIM_ITS ---
Subjective Subjective Date of Service: 07/09/23 Interval History: Seen and evaluated this morning Feels better overall Review of Systems Review of Systems: Yes all other systems are reviewed and are negative Physical Exam 2 Vital Signs: Vital Signs: Last Vital Signs Temp 98.1 F 07/09/23 03:22 Pulse 70 07/09/23 04:05 Resp 11 L 07/09/23 04:05 BP 126/66 07/09/23 04:05 Pulse Ox 93 07/09/23 04:05 O2 Del Method Nasal Cannula 07/09/23 04:05 O2 Flow Rate 2 07/09/23 04:05 BMI result Body Mass Index 36.5 Appearing in no acute distress lung sounds are clear to auscultation heart regular rate rhythm, clear S1, S2 positive bowel sounds, abdomen is soft, nontender neuro patient is alert x3, no focal deficits Objective Data Active Medications Acetaminophen (Acetaminophen 325 Mg Tablet) 650 mg PO Q6H PRN PRN Reason: Pain, Moderate(Pain Scale 4-6) Last Admin: 07/08/23 15:55 Dose: 650 mg Documented By: DAWOOD Albuterol Sulfate (Albuterol Sulfate 90 Mcg 8 Gm Inhaler) 2 puff INHALE Q6H PRN PRN Reason: shortness of breath or wheezing Aspirin (Aspirin Enteric Coated 81 Mg Tablet.) 81 mg PO DAILY [facility] Atorvastatin Calcium (Atorvastatin Calcium 40 Mg Tablet) 40 mg PO DAILY [facility] Carbamazepine (Carbamazepine 200 Mg Tablet) 200 mg PO BID [facility] Last Admin: 07/08/23 19:51 Dose: 200 mg Documented By: ANGLE Duloxetine HCl (Duloxetine Hcl 30 Mg Capsule.) 30 mg PO BID [facility] Last Admin: 07/08/23 19:51 Dose: 30 mg Documented By: ANGLE Folic Acid (Folic Acid 1 Mg Tablet) 1 mg PO DAILY [facility] Glucose (Glucose Gel 15 Gm Gel..Gram.) 15 gm PO Q15M PRN; Protocol PRN Reason: per Hypoglycemia Standing Ord. Heparin Sodium (Porcine) (Heparin Sodium,Porcine 5,000 Unit/Ml Vial) 5,000 unit SUBCUT Q12H [facility] Last Admin: 07/09/23 03:49 Dose: 5,000 unit Documented By: ANGLE Ceftriaxone Sodium 1 gm/ (Sodium Chloride) 50 mls @ 100 mls/hr IV Q24H [facility] Last Infusion: 07/08/23 12:29 Dose: Infused Documented By: DAWOOD Thiamine HCl 300 mg/ Sodium (Chloride) 103 mls @ 202 mls/hr IV DAILY [facility] Last Infusion: 07/08/23 08:22 Dose: Infused Documented By: DAWOOD Folic Acid 1 mg/ Sodium (Chloride) 50.2 mls @ 100.4 mls/hr IV DAILY [facility] Stop: 07/09/23 09:29 Last Infusion: 07/08/23 11:14 Dose: Infused Documented By: DAWOOD Dextrose (D10) 250 mls @ 750 mls/hr IV Q15M PRN; Protocol PRN Reason: per Hypoglycemia Standing Ord. Metronidazole (Flagyl) 500 mg in 100 mls @ 100 mls/hr IV Q8H [facility] Last Infusion: 07/09/23 07:06 Dose: Infused Documented By: ANGLE Potassium Chloride (Potassium Chloride/H20) 10 meq in 100 mls @ 100 mls/hr IV ONCE ONE Stop: 07/09/23 08:30 Insulin Glargine (Insulin Glargine,Hum.Rec.Anlog 100 Unit/Ml 10 Ml Vial) 30 unit SUBCUT DAILY [facility] Insulin Human Lispro (Insulin Lispro 100 Unit/Ml 3 Ml Vial) 0 unit SUBCUT QIDACHS [facility]; Protocol Last Admin: 07/08/23 20:19 Dose: Not Given Documented By: ANGLE Non-Admin Reason: Patient Refused Latanoprost (Latanoprost 0.005 % Ophth Mi 2.5 Ml Drops) 1 drop EYE-BOTH BEDTIME [facility] Last Admin: 07/08/23 19:51 Dose: 1 drop Documented By: ANGLE Metoprolol Succinate (Metoprolol Succinate Er 100 Mg Tab.Er.24h) 100 mg PO DAILY [facility]; Protocol Multivitamins/Vitamin C (Multivitamin Tablet) 1 tab PO DAILY [facility] Nicotine (Nicotine 14 Mg Patch.Td24) 14 mg TRANSDERMA DAILY [facility] Last Admin: 07/08/23 10:29 Dose: 14 mg Documented By: DAWOOD Nystatin (Nystatin Powder 15 Gm Bottle) 1 appl TOPICAL TID [facility]; Protocol Last Admin: 07/08/23 19:51 Dose: 1 appl Documented By: ANGLE Potassium Chloride (Potassium Chloride Er 20 Meq Tab.Er.Prt) 40 meq PO ONCE ONE Stop: 07/09/23 07:32 Labs 07/09/23 05:10 07/09/23 05:10 Labs: Laboratory Results - last 24 hr 07/08/23 07/08/23 07/08/23 11:30 16:04 20:04 MCV MCH MCHC RDW Plt Count MPV Immature Gran % (Auto) Neut % (Auto) Lymph % (Auto) [place] % (Auto) Eos % (Auto) Baso % (Auto) Lymph # (Auto) [place] # (Auto) Eos # (Auto) Baso # (Auto) Abs Immat Gran (auto) Absolute Neuts (auto) Absolute Nucleated RBC Nucleated RBC % (auto) Anion Gap Estim Creat Clear Calc Estimated GFR POC Glucose 240 H 224 H 182 H Random Glucose Calcium 07/09/23 05:10 MCV 108.3 H MCH 37.2 H MCHC 34.4 RDW 16.0 Plt Count 73 L MPV 10.0 Immature Gran % (Auto) 0.4 Neut % (Auto) 77.0 H Lymph % (Auto) 10.7 L [place] % (Auto) 9.2 Eos % (Auto) 2.0 Baso % (Auto) 0.7 Lymph # (Auto) 0.8 L [place] # (Auto) 0.7 Eos # (Auto) 0.2 Baso # (Auto) 0.1 Abs Immat Gran (auto) 0.03 Absolute Neuts (auto) 5.8 Absolute Nucleated RBC 0.000 Nucleated RBC % (auto) 0.0 Anion Gap 15 Estim Creat Clear Calc 116.6 Estimated GFR > 60 POC Glucose Random Glucose 193 H Calcium 8.0 L Assessment and Plan (1) Pancreatitis: Status: Acute Plan 57 year old man admitted to ICU for AMS, lethargy and weakness. Patient was found to be hypotensive and placed on pressors. CT of abd showed pancreatitis. Pancreatitis treated with albumin, IV fluids Lipase increasing but no abd pain GI consult pending Hepatorenal syndrome with acute toxic metabolic hepatic encephalopathy secondary to alcohol abuse renal function back to baseline Hypokalemia/Hypomagensemia repleted with oral and IV potassium IV Magnesium Cdiff dx 07/07/23 flagyl, started in ICU Diffuse fungal rash nystatin powder to groin area Alcohol abuse thiamine, folic acid, MVI DM2 ss, lantus, ada diet microcytic anemia stable HH, above tx threshold likely secondary to alcohol use COPD, chronic no exacerbation albuterol as needed HLD asa and statin Mental health cymbalta smoker NRT obesity. BMI 36.5 Discussed importance of weight management as this may be contributing to worsening of other comorbidities DVT prophylaxis with heparin Attending Dr. Holland henriquez Quality Stroke Does the patient have a stroke diagnosis?: No VTE Prior VTE?: No VTE Risk Level:: Medical - moderate - high VTE Device Contraindication: N/A - Device Ordered VTE Drug Contraindication: Treatment Not Tolerated
[2023-07-09 07:39] LABS: Glucose, Whole Blood 233 mg/dL (60-115)
[2023-07-09 08:12] LABS: Lipase 300 U/L (8-78)
[2023-07-09 08:14] LABS: Magnesium 1.3 mg/dL (1.6-2.6)
[2023-07-09] MEDS: Insulin Glargine,Hum.rec.anlog 100 UNIT/ML 10 ML VIAL 30 UNIT SUBCUT (08:20)
[2023-07-09] MEDS: Potassium Chloride/H20 10 MEQ/100 ML PIGGYBACK 100 MEQ IV (08:20)
[2023-07-09] MEDS: Potassium Chloride ER 20 MEQ TAB.ER.PRT 40 MEQ PO (08:20)
[2023-07-09] MEDS: Nicotine 14 MG PATCH.TD24 TRANSDERMA (08:21)
[2023-07-09] MEDS: Multivitamin TABLET 1 TAB PO (08:21)
[2023-07-09] MEDS: Insulin Lispro 100 UNIT/ML 3 ML VIAL SUBCUT ×4 (08:21→20:54)
[2023-07-09] MEDS: DULoxetine HCl 30 MG CAPSULE.DR PO ×2 (08:21→20:54)
[2023-07-09] MEDS: Nystatin Powder 15 GM BOTTLE 1 APPL TOPICAL ×3 (08:22→20:54)
[2023-07-09] MEDS: Folic Acid 1 MG TABLET PO (08:22)
[2023-07-09] MEDS: Atorvastatin Calcium 40 MG TABLET PO (08:22)
[2023-07-09] MEDS: Metoprolol Succinate ER 100 MG TAB.ER.24H PO (08:22)
[2023-07-09] MEDS: Aspirin Enteric Coated 81 MG TABLET.DR PO (08:22)
[2023-07-09] MEDS: carBAMazepine 200 MG TABLET PO ×2 (08:22→20:54)
[2023-07-09] MEDS: Folic Acid 1 MG in 0.9 % Sodium Chloride 50 ML 100.4 MG IV (09:17)
[2023-07-09] MEDS: Magnesium Sulfate/H2O 2 GM/50 ML PIGGYBACK IV (09:56)
--- NOTE | 2023-07-09 10:35 | HO.WOUND ---
Wound Consult: Initial 57yr old?Male admitted to [facility] [place] on 07/06/23 - See progress notes and H&P for detailed history.? Wound consult placed for Bilateral groin, buttock and perineal areas.? Patient agreeable to assessment and photo documentation.? Patient reports he wears briefs at home and showers twice a week. He reports improved skin since the direct care team has started to use Nystatin powder, barrier cream and discontinued brief use. Patient was educated on the importance of showering every other day to minimize his change of a fungal invasion. He was educated on the concern with continued use of brief as they trap moisture and decrease skins strength - he reports understanding. He was advised that when briefs must be used they should be changed immediately upon being wet. He reports understanding and is agreeable. Buttock Abdominal skin folds, groinf and perineal area Etiology: ??MASD (Moisture Associated Skin Damage ) and Fungal dermatitis Measurements: generalized areas with advancing boarders Wound Bed: red maroon blanchable tissue with peeling epidermal layers and satellite lesions noted. Of not buttock does have a red maroon light purple pigmentation to it however this remains blanchable and is not consistent with pressure but indicative of chronic moisture Drainage / Odor: None noted Edges: ? Irregular and advancing Anabela wound: ? No Induration, Fluctuance or Warmth noted Pain: reports improved comfort Goals of Treatment: ? Antifungal powder per provider and barrier cream Etiology: ?Diabetic Wounds Measurements: various sizes measuring less then 1cm Wound Bed: dark black dry stable eschar Drainage / Odor: None Edges: callused Anabela wound: ?Dry - No Induration, Fluctuance or Warmth noted Pain: denies pain Goals of Treatment: ?Keep dry and stable with Betadine daily - pt reports when wounds are evolving he on occasion will treat with outpt wound clinic - advised to continue to treat on an as needed basis - current wounds are stable Recommendations: 1. Turn and Reposition every 2 hours and as needed for patient comfort.? Use pillows or wedges to support off loading positions. 2. Off Load all bony prominences with use of pillows and heel boots if needed.? Apply Preventative foams where needed. ? 3. Monitor for incontinence and moisture control, use barrier creams when needed for prevention and treatment. 4. Provide adequate and supplemental nutrition.? 5. Continue low air loss mattress. 6. Maintain blood glucose levels per Providers order. 7. Buttock, Perineal area, Abdominal skin folds - Cleanse with PH balance wipes, pat dry with soft cloth.? Apply antifungal power to assist with moisture management.? Be sure to dust of excess powder to prevent caking on skin and in folds. Apply per provider orders. Follow with light application of barrier cream to protect from moisture and friction. 8. Bilateral Toes - [place] with Betadine Daily. Leave open to air to keep dry. Re-consult wound care Nurse for wound deterioration or wound changes.
[2023-07-09 11:40] LABS: Glucose, Whole Blood 270 mg/dL (60-115)
[2023-07-09] MEDS: cefTRIAXone sodium 1 GM in 0.9 % Sodium Chloride 50 ML IV (11:57)
[2023-07-09] MEDS: Pregabalin 200 MG CAPSULE PO ×2 (15:26→20:53)
[2023-07-09 16:22] LABS: Glucose, Whole Blood 209 mg/dL (60-115)
--- NOTE | 2023-07-09 18:42 | PM.EVENT ---
Event Note Date of Service: 07/09/23 Event Note: GI Consult- Full note Dictated-History from patient and EMR. Imp: Asymptomatic elevation of the lipase in a 57yo male with chronic EtOH abuse and evidence of some edema around the pancreas on his admission CT. He denies abdominal pain, is tolerating his diet, and his abdominal exam is benign. I don't think he has clinically active nor any significant component of pancreatitis. The changes on the CT and slight elevation of the lipase could be from EtOH-induced pancreatic changes, as well as in relation to his presenting hypotension with hypoperfusion of the pancreas. There is no evidence of gallbladder nor biliary disease on his admitting CT scan or on a 2021 abdominal U/S. Rec: At this point I would recommend observation, supportive care, diet as tolerated, and obviously avoidance of EtOH going forward. We did review the latter issue in detail and the need to avoid EtOH penitentiary. If he begins having significant abdominal pain and/or continued significant rise of the lipase I would recommend a follow up CT of the pancreas to rule out a developing pseudocyst. D/W patient and he is comfortable with this plan. Thanks Time Spent With Patient Time: Total time managing care of this patient today ____ minutes.
[2023-07-09 20:43] LABS: Glucose, Whole Blood 234 mg/dL (60-115)
[2023-07-10] VITALS (7 sets, daily range): BP systolic 101–137; BP diastolic 55–77; PULSE 64–97; RESP 16–20; TEMP 36.3–36.9; O2SAT 91–97
[2023-07-10] MEDS: metroNIDAZOLE/NS 500 MG/100 ML PIGGYBACK 100 MG IV (04:11)
[2023-07-10] MEDS: Heparin Sodium,Porcine 5,000 UNIT/ML VIAL 5000 UNIT SUBCUT ×2 (04:16→16:39)
--- NOTE | 2023-07-10 05:20 | CONS_ITS ---
DATE OF SERVICE: 07/09/2023 REASON FOR CONSULTATION: Elevated lipase and pancreatitis. HISTORY OF PRESENT ILLNESS: This is a 57-year-old male with a longstanding history of alcohol abuse, admitted to the hospital for evaluation of hypotension and other medical issues. The patient does have a longstanding history of alcohol abuse, but denies any previous history of pancreatitis, nor any pancreatic issues in general. On this occasion, he was admitted to the hospital on July 05 to the ICU for evaluation of hypotension. He has an underlying medical history of the alcohol abuse, asthma with COPD and bronchitis, coronary artery disease, history of sleep apnea, reported hepatitis C, and diabetes. He would require supportive care in the ICU due to hypotension. There was no evidence of any GI bleeding during that time. He has also been documented to have C. difficile infection, most likely in relation to previous antibiotics after a recent admission for pneumonia. He denies any associated hematochezia nor melena. He denies any recent nausea or vomiting. He denies any significant heartburn or dysphagia. The patient denies any abdominal pain. Over the course of today, he has been eating comfortably. His current medication includes 81 mg aspirin, atorvastatin, acetaminophen, Tegretol, IV ceftriaxone, Cymbalta, folic acid, SQ heparin, insulin, eye drops, metoprolol, IV Flagyl, vitamins, nicotine patch, nystatin powder, and thiamine. PAST MEDICAL HISTORY: Alcohol abuse, insulin-dependent diabetes mellitus, COPD, sleep apnea, history of pneumonia, and reported history of hepatitis C. He has had back surgery, abdominal wall hernia surgery, broken right leg, chronic liver disease, and a history of angioedema requiring emergency tracheostomy. SOCIAL HISTORY: He is . He does smoke. Alcohol use. FAMILY HISTORY: Negative for pancreatic disease, nor GI malignancy. REVIEW OF SYSTEMS: CONSTITUTIONAL: He has been feeling poorly in general in relation to his alcohol abuse and other medical issues. CARDIAC: No chest pain. PULMONARY: No cough, no hemoptysis. GI: As above. URINARY: No dysuria, no hematuria. NEUROLOGIC: No headaches. PHYSICAL EXAMINATION: GENERAL: The patient is an alert and somewhat chronically ill appearing male, but in no distress. SKIN: Warm and dry. EYES: Anicteric sclerae. NECK: Supple. CARDIAC: Normal S1, S2. ABDOMEN: Soft, nondistended. Normal bowel sounds. There is no focal mass, rebound, guarding, nor any tenderness. LABORATORIES: White blood cell count today 7.5, hemoglobin 12.1, platelets low at 72,000. PT 14.9 with INR 1.2. Normal chemistries except for potassium 2.9 today. His lipase level was 308. Lipase was 174 on July 06. He did have a CT scan of the abdomen and pelvis which describes a somewhat mildly edematous pancreas without any sign of significant inflammatory changes, mass, nor cyst. The liver also appeared nodular consistent with probable cirrhosis. There is no splenomegaly. The GI tract appeared unremarkable. IMPRESSION: At the present time the patient does not show any clinical signs nor have any symptoms of pancreatitis based on his clinical history and his examination. The changes on the CT scan and his lab work most likely reflected very mild underlying pancreatitis in relation to the alcohol abuse, as well as perhaps some hypoperfusion of the pancreas in relation to his presentation with significant hypotension. He has had a previous ultrasound about 2 years ago that was negative for gallstones. Therefore, I do not think this is related to any type of biliary pancreatitis. At this point, given his benign abdominal exam and lack of any symptoms such as abdominal pain, I would recommend observation, supportive care, and diet as tolerated. We did review the fact that he needs to abstain from alcohol long-term in hopes of preventing further hospitalizations and specifically to avoid any further damage to his pancreas or liver. If he begins having significant abdominal pain and/or a continued significant rise in the lipase, then we may need to repeat a CAT scan to rule out any type of pancreatic pseudocyst. Thank you for the consultation. MD BEBA Torres/RUBEN / [id number] OTF
[2023-07-10 07:04] LABS: MANUAL DIFF FLAG NO
[2023-07-10 07:08] LABS: Basophils Absolute Auto 0.1 X10*3/uL (0.0-0.2); Basophils Percent Auto 1.1 % (0-2); Eosinophils Absolute Auto 0.3 X10*3/uL (0.0-0.4); Hematocrit 36.8 % (42.0-52.0); Hemoglobin 12.8 g/dl (14.0-18.0); Imm Gran Abs Auto 0.04 X10*3/uL (0.00-0.03); Imm Gran Pct Auto 0.5 % (0.0-0.4); Lymphocytes Absolute Auto 1.1 X10*3/uL (1.2-4.9); Lymphocytes Percent Auto 13.4 % (20-40); Mean Corpuscular HGB Conc 34.8 g/dl (31.0-36.0); Mean Corpuscular Hemoglobin 37.5 pg (27.0-33.0); Mean Corpuscular Volume 107.9 fL (80.0-98.0); Mean Platelet Volume 10.9 fL (9.4-12.4); Monocytes Absolute Auto 0.8 X10*3/uL (0.1-1.2); Monocytes Percent Auto 9.9 % (2-11); Neutrophils Percent Auto 72.1 % (45-73); Red Blood Count 3.41 X10*6/uL (4.60-5.80); Red Cell Distribution Width 16.3 % (11.0-16.0); White Blood Count 8.3 X10*3/uL (4.8-10.8)
[2023-07-10 07:22] LABS: Platelet Count 84 X10*3/uL (160-400)
[2023-07-10 07:24] LABS: Glucose, Whole Blood 152 mg/dL (60-115)
[2023-07-10 07:32] LABS: Anion Gap 15 (12-20); Blood Urea Nitrogen 10 mg/dL (9-16); Carbon Dioxide 25 mmol/L (22-29); Chloride 101 mmol/L (96-108); Creatinine Clr Calc Pharmacy 135.7; Estimated Glomerular Filt Rate > 60; Glucose Random 141 mg/dL (60-115); Lipase 269 U/L (8-78); Sodium 138 mmol/L (135-145)
[2023-07-10 08:33] LABS: Magnesium 1.4 mg/dL (1.6-2.6)
[2023-07-10] MEDS: Nystatin Powder 15 GM BOTTLE 1 APPL TOPICAL (08:39)
[2023-07-10] MEDS: Insulin Lispro 100 UNIT/ML 3 ML VIAL SUBCUT ×4 (08:43→20:42)
[2023-07-10] MEDS: Insulin Glargine,Hum.rec.anlog 100 UNIT/ML 10 ML VIAL 30 UNIT SUBCUT (08:43)
[2023-07-10] MEDS: Aspirin Enteric Coated 81 MG TABLET.DR PO (08:44)
[2023-07-10] MEDS: Atorvastatin Calcium 40 MG TABLET PO (08:44)
[2023-07-10] MEDS: carBAMazepine 200 MG TABLET PO ×2 (08:44→20:42)
[2023-07-10] MEDS: Metoprolol Succinate ER 100 MG TAB.ER.24H PO (08:44)
[2023-07-10] MEDS: Nicotine 14 MG PATCH.TD24 TRANSDERMA (08:44)
[2023-07-10] MEDS: Multivitamin TABLET 1 TAB PO (08:45)
[2023-07-10] MEDS: Pregabalin 200 MG CAPSULE PO ×3 (08:45→20:42)
[2023-07-10] MEDS: Folic Acid 1 MG TABLET PO (08:45)
[2023-07-10] MEDS: DULoxetine HCl 30 MG CAPSULE.DR PO ×2 (08:45→20:42)
[2023-07-10] MEDS: Potassium Chloride Packet 20 MEQ PACKET 40 MEQ PO (08:46)
[2023-07-10] MEDS: Magnesium Sulfate/H2O 2 GM/50 ML PIGGYBACK IV (08:55)
[2023-07-10] MEDS: vancomycin HCL 125 MG CAPSULE PO ×3 (11:19→22:52)
[2023-07-10 11:24] LABS: Glucose, Whole Blood 323 mg/dL (60-115)
--- NOTE | 2023-07-10 12:39 | HO.PM.IMPN ---
Subjective Subjective Date of Service: 07/10/23 Interval History: seen and examined this morning follow up for pancreatitis, cdif no abdominal pain, still with diarrhea Review of Systems Review of Systems: Yes all other systems are reviewed and are negative Constitutional Constitutional: Denies chills and Denies fever(s) Cardiovascular Cardiovascular: Denies chest pain, Denies palpitations and Denies dyspnea Respiratory Respiratory: Denies cough and Denies dyspnea Endocrine Endocrine: Denies palpitations Physical Exam Vital Signs: Vital Signs: Last Vital Signs Temp 97.9 F 07/10/23 11:16 Pulse 86 07/10/23 11:16 Resp 18 07/10/23 11:16 BP 101/55 L 07/10/23 11:16 Pulse Ox 91 L 07/10/23 11:16 O2 Del Method Room Air 07/10/23 11:16 O2 Flow Rate 2 07/09/23 12:00 BMI result Body Mass Index 36.5 Const: General: cooperative, comfortable, no acute distress, alert and awake Nutritional Appearance: overweight Orientation/consciousness: patient oriented x3 Resp: Effort & Inspection: normal respiratory effort, able to speak in complete sentences, no respiratory distress and no use of accessory muscles Cardio: Rate: regular rate GI: Inspection: No distended Palpation (GI): Soft to palpation and nontender Neuro: General: patient oriented x3, moves all extremities and CN's II-XI intact bilaterally Extrem: General: Yes no pedal edema Objective Data Active Medications Acetaminophen (Acetaminophen 325 Mg Tablet) 650 mg PO Q6H PRN PRN Reason: Pain, Moderate(Pain Scale 4-6) Last Admin: 07/08/23 15:55 Dose: 650 mg Documented By: DAWOOD Albuterol Sulfate (Albuterol Sulfate 90 Mcg 8 Gm Inhaler) 2 puff INHALE Q6H PRN PRN Reason: shortness of breath or wheezing Aspirin (Aspirin Enteric Coated 81 Mg Tablet.) 81 mg PO DAILY [facility] Last Admin: 07/10/23 08:44 Dose: 81 mg Documented By: ADDISON Atorvastatin Calcium (Atorvastatin Calcium 40 Mg Tablet) 40 mg PO DAILY [facility] Last Admin: 07/10/23 08:44 Dose: 40 mg Documented By: ADDISON Carbamazepine (Carbamazepine 200 Mg Tablet) 200 mg PO BID [facility] Last Admin: 07/10/23 08:44 Dose: 200 mg Documented By: ADDISON Duloxetine HCl (Duloxetine Hcl 30 Mg Capsule.Dr) 30 mg PO BID [facility] Last Admin: 07/10/23 08:45 Dose: 30 mg Documented By: ADDISON Folic Acid (Folic Acid 1 Mg Tablet) 1 mg PO DAILY [facility] Last Admin: 07/10/23 08:45 Dose: 1 mg Documented By: ADDISON Glucose (Glucose Gel 15 Gm Gel..Gram.) 15 gm PO Q15M PRN; Protocol PRN Reason: per Hypoglycemia Standing Ord. Heparin Sodium (Porcine) (Heparin Sodium,Porcine 5,000 Unit/Ml Vial) 5,000 unit SUBCUT Q12H [facility] Last Admin: 07/10/23 04:16 Dose: 5,000 unit Documented By: NIKITA Thiamine HCl 300 mg/ Sodium (Chloride) 103 mls @ 202 mls/hr IV DAILY [facility] Last Infusion: 07/10/23 09:21 Dose: Infused Documented By: ADDISON Dextrose (D10) 250 mls @ 750 mls/hr IV Q15M PRN; Protocol PRN Reason: per Hypoglycemia Standing Ord. Insulin Glargine (Insulin Glargine,Hum.Rec.Anlog 100 Unit/Ml 10 Ml Vial) 30 unit SUBCUT DAILY [facility] Last Admin: 07/10/23 08:43 Dose: 30 unit Documented By: ADDISON Insulin Human Lispro (Insulin Lispro 100 Unit/Ml 3 Ml Vial) 0 unit SUBCUT QIDACHS [facility]; Protocol Last Admin: 07/10/23 11:31 Dose: 8 unit Documented By: ADDISON Latanoprost (Latanoprost 0.005 % Ophth Mi 2.5 Ml Drops) 1 drop EYE-BOTH BEDTIME [facility] Last Admin: 07/09/23 20:55 Dose: Not Given Documented By: ODALIS Non-Admin Reason: Med Not Available Metoprolol Succinate (Metoprolol Succinate Er 100 Mg Tab.Er.24h) 100 mg PO DAILY [facility]; Protocol Last Admin: 07/10/23 08:44 Dose: 100 mg Documented By: ADDISON Multivitamins/Vitamin C (Multivitamin Tablet) 1 tab PO DAILY [facility] Last Admin: 07/10/23 08:45 Dose: 1 tab Documented By: ADDISON Nicotine (Nicotine 14 Mg Patch.Td24) 14 mg TRANSDERMA DAILY [facility] Last Admin: 07/10/23 08:44 Dose: 14 mg Documented By: ADDISON Nystatin (Nystatin Powder 15 Gm Bottle) 1 appl TOPICAL TID [facility]; Protocol Last Admin: 07/10/23 08:39 Dose: 1 appl Documented By: ADDISON Pregabalin (Pregabalin 200 Mg Capsule) 200 mg PO TID [facility] Last Admin: 07/10/23 08:45 Dose: 200 mg Documented By: ADDISON Vancomycin HCl (Vancomycin Hcl 125 Mg Capsule) 125 mg PO Q6H [facility] Last Admin: 07/10/23 11:19 Dose: 125 mg Documented By: ADDISON Labs 07/10/23 06:37 07/10/23 06:37 Labs: Laboratory Results - last 24 hr 07/09/23 07/09/23 07/10/23 16:19 20:30 06:37 MCV 107.9 H MCH 37.5 H MCHC 34.8 RDW 16.3 H Plt Count 84 L MPV 10.9 Immature Gran % (Auto) 0.5 H Neut % (Auto) 72.1 Lymph % (Auto) 13.4 L [place] % (Auto) 9.9 Eos % (Auto) 3.0 Baso % (Auto) 1.1 Lymph # (Auto) 1.1 L [place] # (Auto) 0.8 Eos # (Auto) 0.3 Baso # (Auto) 0.1 Abs Immat Gran (auto) 0.04 H Absolute Neuts (auto) 6.0 Absolute Nucleated RBC 0.000 Nucleated RBC % (auto) 0.0 Anion Gap 15 Estim Creat Clear Calc 135.7 Estimated GFR > 60 POC Glucose 209 H 234 H Random Glucose 141 H Calcium 8.0 L Magnesium 1.4 L* Lipase 269 H 07/10/23 07/10/23 07:08 11:19 MCV MCH MCHC RDW Plt Count MPV Immature Gran % (Auto) Neut % (Auto) Lymph % (Auto) [place] % (Auto) Eos % (Auto) Baso % (Auto) Lymph # (Auto) [place] # (Auto) Eos # (Auto) Baso # (Auto) Abs Immat Gran (auto) Absolute Neuts (auto) Absolute Nucleated RBC Nucleated RBC % (auto) Anion Gap Estim Creat Clear Calc Estimated GFR POC Glucose 152 H 323 H Random Glucose Calcium Magnesium Lipase Assessment and Plan (1) Acute hypokalemia: Status: Acute (2) Pancreatitis: Status: Acute Plan This is a 57 year old man admitted to ICU for AMS, lethargy and weakness. Patient was found to be hypotensive and placed on pressors. CT of abd showed pancreatitis. Acute Pancreatitis treated with albumin, IV fluids Lipase increasing but no abd pain - seen by GI, no further work up required at this time Hepatorenal syndrome with acute toxic metabolic hepatic encephalopathy secondary to alcohol abuse renal function back to baseline Hypokalemia/Hypomagensemia repleted with oral and IV potassium and IV magnesium levels remain low, will replace and follow BMP Cdiff PCR + tox negative, but pt having copious diarrhea, so treating as such dx 07/07/23 flagyl, started in ICU - will change to po vanco Diffuse fungal rash nystatin powder to groin area thrombocytopenia chronic. due to liver disease monitor as on aspirin at baseline Alcohol abuse thiamine, folic acid, MVI DM2 ss, lantus, ada diet microcytic anemia stable HH, above tx threshold likely secondary to alcohol use COPD, chronic no exacerbation albuterol as needed HLD asa and statin Mental health cymbalta smoker NRT obesity. BMI 36.5 Discussed importance of weight management as this may be contributing to worsening of other comorbidities DVT prophylaxis with heparin Attending Dr. Lino code Quality Stroke Does the patient have a stroke diagnosis?: No VTE Prior VTE?: No VTE Risk Level:: Medical - moderate - high VTE Device Contraindication: N/A - Device Ordered VTE Drug Contraindication: Treatment Not Tolerated
[2023-07-10 16:30] LABS: Glucose, Whole Blood 302 mg/dL (60-115)
[2023-07-10 19:53] LABS: Glucose, Whole Blood 199 mg/dL (60-115)
[2023-07-10] MEDS: Latanoprost 0.005 % Ophth Sol 2.5 ML DROPS 1 DROP EYE-BOTH (20:42)
[2023-07-11 03:49] VITALS: BP 125/77; PULSE 82; RESP 17; TEMP 36.2; O2SAT 93
[2023-07-11] MEDS: vancomycin HCL 125 MG CAPSULE PO ×4 (04:40→22:30)
[2023-07-11] MEDS: Heparin Sodium,Porcine 5,000 UNIT/ML VIAL 5000 UNIT SUBCUT ×2 (04:41→14:44)
[2023-07-11] MEDS: Nystatin Powder 15 GM BOTTLE 1 APPL TOPICAL ×4 (04:42→22:31)
[2023-07-11 06:39] LABS: MANUAL DIFF FLAG NO
[2023-07-11 06:58] LABS: Basophils Absolute Auto 0.1 X10*3/uL (0.0-0.2); Basophils Percent Auto 1.2 % (0-2); Eosinophils Absolute Auto 0.2 X10*3/uL (0.0-0.4); Eosinophils Percent Auto 2.2 % (0-4); Hematocrit 39.7 % (42.0-52.0); Hemoglobin 13.7 g/dl (14.0-18.0); Imm Gran Abs Auto 0.06 X10*3/uL (0.00-0.03); Imm Gran Pct Auto 0.6 % (0.0-0.4); Lymphocytes Absolute Auto 1.1 X10*3/uL (1.2-4.9); Lymphocytes Percent Auto 10.6 % (20-40); Mean Corpuscular HGB Conc 34.5 g/dl (31.0-36.0); Mean Corpuscular Hemoglobin 37.6 pg (27.0-33.0); Mean Corpuscular Volume 109.1 fL (80.0-98.0); Mean Platelet Volume 10.9 fL (9.4-12.4); Monocytes Absolute Auto 0.9 X10*3/uL (0.1-1.2); Monocytes Percent Auto 9.3 % (2-11); Neutrophils Absolute Auto 7.6 x10*3/uL (2.0-8.3); Neutrophils Percent Auto 76.1 % (45-73); Red Blood Count 3.64 X10*6/uL (4.60-5.80); Red Cell Distribution Width 16.4 % (11.0-16.0)
[2023-07-11 07:03] LABS: Platelet Count 92 X10*3/uL (160-400)
[2023-07-11 07:18] LABS: Anion Gap 14 (12-20); Blood Urea Nitrogen 8 mg/dL (9-16); Calcium 8.8 mg/dL (8.4-10.2); Carbon Dioxide 27 mmol/L (22-29); Chloride 101 mmol/L (96-108); Creatinine Clr Calc Pharmacy 135.7; Estimated Glomerular Filt Rate > 60; Glucose Random 199 mg/dL (60-115); Magnesium 1.4 mg/dL (1.6-2.6); Potassium 4.1 mmol/L (3.3-5.1); Sodium 138 mmol/L (135-145)
[2023-07-11] MEDS: Magnesium Sulfate/H2O 2 GM/50 ML PIGGYBACK IV ×2 (07:57→18:28)
[2023-07-11 08:00] VITALS: BP 131/79; PULSE 92; RESP 20; TEMP 37.1; O2SAT 92
[2023-07-11 08:12] LABS: Glucose, Whole Blood 201 mg/dL (60-115)
[2023-07-11] MEDS: Metoprolol Succinate ER 100 MG TAB.ER.24H PO (08:18)
[2023-07-11] MEDS: DULoxetine HCl 30 MG CAPSULE.DR PO ×2 (08:18→22:30)
[2023-07-11] MEDS: carBAMazepine 200 MG TABLET PO ×2 (08:18→22:30)
[2023-07-11] MEDS: Pregabalin 200 MG CAPSULE PO ×3 (08:18→22:30)
[2023-07-11] MEDS: Atorvastatin Calcium 40 MG TABLET PO (08:18)
[2023-07-11] MEDS: Aspirin Enteric Coated 81 MG TABLET.DR PO (08:18)
[2023-07-11] MEDS: Nicotine 14 MG PATCH.TD24 TRANSDERMA (08:19)
[2023-07-11] MEDS: Insulin Glargine,Hum.rec.anlog 100 UNIT/ML 10 ML VIAL 30 UNIT SUBCUT (08:19)
[2023-07-11] MEDS: Insulin Lispro 100 UNIT/ML 3 ML VIAL SUBCUT ×4 (08:19→22:31)
[2023-07-11] MEDS: Multivitamin TABLET 1 TAB PO (08:19)
[2023-07-11] MEDS: Folic Acid 1 MG TABLET PO (08:20)
--- NOTE | 2023-07-11 10:44 | HO.WOUND ---
Wound Consult: Initial / follow up 57yr old?Male admitted to [facility] on 07/06/23 - See progress notes and H&P for detailed history.? Wound consult placed for Right Index finger wound and seen previously for Bilateral groin, buttock and perineal areas.? Patient agreeable to assessment and photo documentation.? Right Index Finger assessed - per direct care nurse the O2sat probe was removed and the finger wound was discovered - the wound is not consistent with device related injury. Of note the patient does have various dry scabbed lesions noted throughout his toes and fingers. He denies picking however while at bedside patient picked off several small scabs prior to advising him not too. He reports understanding. Right index Finger Wound Etiology: ?Chronic Abrasion Measurements: see charting for detailed measurement Wound Bed: moist pink wound bed Drainage / Odor: None Edges: epibole [place] wound: Macerated - No Induration, Fluctuance or Warmth noted Pain: denies pain Goals of Treatment: ?Durafiber for moisture management Right Index finger lateral side prior to picking Right Index finger lateral side post picking at scab Etiology: ?Diabetic Wounds Measurements: various sizes measuring less then 1cm Wound Bed: dark black dry stable eschar Drainage / Odor: None Edges: callused [place] wound: ?Dry - No Induration, Fluctuance or Warmth noted Pain: denies pain Goals of Treatment: ?Keep dry and stable with Betadine daily - pt reports when wounds are evolving he on occasion will treat with outpt wound clinic - advised to continue to treat on an as needed basis - current wounds are stable Patient and staff report continued improvement to Bilateral groin, buttock and perineal areas with use of Nystatin powder, barrier cream and discontinued brief use. No new topical orders at this time. Recommendations: 1. Turn and Reposition every 2 hours and as needed for patient comfort.? Use pillows or wedges to support off loading positions. 2. Off Load all bony prominences with use of pillows and heel boots if needed.? Apply Preventative foams where needed. ? 3. Monitor for incontinence and moisture control, use barrier creams when needed for prevention and treatment. 4. Provide adequate and supplemental nutrition.? 5. Continue low air loss mattress. 6. Maintain blood glucose levels per Providers order. 7. Buttock, Perineal area, Abdominal skin folds - Cleanse with PH balance wipes, pat dry with soft cloth.? Apply antifungal power to assist with moisture management.? Be sure to dust of excess powder to prevent caking on skin and in folds. Apply per provider orders. Follow with light application of barrier cream to protect from moisture and friction. 8. Bilateral Toes - [place] with Betadine Daily. Leave open to air to keep dry. 9. Right Index Finger - Cleanse with NS pat dry. Apply skin prep to periwound. Cover wound bed with cut to size Durafiber piece cover with dry gauze and wrap or netting. Change every 3 days. Re-consult wound care Nurse for wound deterioration or wound changes.
[2023-07-11 11:51] VITALS: BP 144/82; PULSE 80; RESP 18; TEMP 36.3; O2SAT 94
[2023-07-11 12:03] LABS: Glucose, Whole Blood 209 mg/dL (60-115)
--- NOTE | 2023-07-11 12:40 | MHC.CM.PN ---
Pt has not yet been medically cleared for DC, Provider anticipates DC on 07/11 or 07/12. Pt will go home and his will take care of him, and he will have [facility], and they have been updated.
--- NOTE | 2023-07-11 14:13 | P.PNIM_ITS ---
Subjective Subjective Date of Service: 07/11/23 Interval History: seen and examined this morning follow up for cdif, pancreatitis no abdominal pain, still with significant diarrhea and low magnesium levels Review of Systems Review of Systems: Yes all other systems are reviewed and are negative Constitutional Constitutional: Denies chills and Denies fever(s) Cardiovascular Cardiovascular: Denies chest pain Gastrointestinal Gastrointestinal: Denies abdominal pain, Reports diarrhea, Denies nausea and Denies vomiting Physical Exam 2 Vital Signs: Vital Signs: Last Vital Signs Temp 97.4 F 07/11/23 11:51 Pulse 80 07/11/23 11:51 Resp 18 07/11/23 11:51 BP 144/82 H 07/11/23 11:51 Pulse Ox 94 07/11/23 11:51 O2 Del Method Room Air 07/11/23 11:51 O2 Flow Rate 2 07/11/23 03:49 BMI result Body Mass Index 36.5 Const: General: cooperative, comfortable, no acute distress, alert and awake Nutritional Appearance: overweight Orientation/consciousness: patient oriented x3 Resp: Effort & Inspection: normal respiratory effort, able to speak in complete sentences, no respiratory distress and no use of accessory muscles Cardio: Rate: regular rate GI: Inspection: No distended Palpation (GI): Soft to palpation and nontender Neuro: General: patient oriented x3, moves all extremities and CN's II-XI intact bilaterally Extrem: General: Yes no pedal edema Objective Data Active Medications Acetaminophen (Acetaminophen 325 Mg Tablet) 650 mg PO Q6H PRN PRN Reason: Pain, Moderate(Pain Scale 4-6) Last Admin: 07/08/23 15:55 Dose: 650 mg Documented By: DAWOOD Albuterol Sulfate (Albuterol Sulfate 90 Mcg 8 Gm Inhaler) 2 puff INHALE Q6H PRN PRN Reason: shortness of breath or wheezing Aspirin (Aspirin Enteric Coated 81 Mg Tablet.) 81 mg PO DAILY [facility] Last Admin: 07/11/23 08:18 Dose: 81 mg Documented By: JOSE Atorvastatin Calcium (Atorvastatin Calcium 40 Mg Tablet) 40 mg PO DAILY [facility] Last Admin: 07/11/23 08:18 Dose: 40 mg Documented By: JOSE Carbamazepine (Carbamazepine 200 Mg Tablet) 200 mg PO BID [facility] Last Admin: 07/11/23 08:18 Dose: 200 mg Documented By: JOSE Duloxetine HCl (Duloxetine Hcl 30 Mg Capsule.) 30 mg PO BID [facility] Last Admin: 07/11/23 08:18 Dose: 30 mg Documented By: JOSE Folic Acid (Folic Acid 1 Mg Tablet) 1 mg PO DAILY [facility] Last Admin: 07/11/23 08:20 Dose: 1 mg Documented By: JOSE Glucose (Glucose Gel 15 Gm Gel..Gram.) 15 gm PO Q15M PRN; Protocol PRN Reason: per Hypoglycemia Standing Ord. Heparin Sodium (Porcine) (Heparin Sodium,Porcine 5,000 Unit/Ml Vial) 5,000 unit SUBCUT Q12H [facility] Last Admin: 07/11/23 04:41 Dose: 5,000 unit Documented By: ODALIS Thiamine HCl 300 mg/ Sodium (Chloride) 103 mls @ 202 mls/hr IV DAILY [facility] Last Infusion: 07/11/23 11:45 Dose: Infused Documented By: JOSE Dextrose (D10) 250 mls @ 750 mls/hr IV Q15M PRN; Protocol PRN Reason: per Hypoglycemia Standing Ord. Insulin Glargine (Insulin Glargine,Hum.Rec.Anlog 100 Unit/Ml 10 Ml Vial) 30 unit SUBCUT DAILY [facility] Last Admin: 07/11/23 08:19 Dose: 1 unit Documented By: JOSE Insulin Human Lispro (Insulin Lispro 100 Unit/Ml 3 Ml Vial) 0 unit SUBCUT QIDACHS [facility]; Protocol Last Admin: 07/11/23 12:24 Dose: 4 unit Documented By: JOSE Latanoprost (Latanoprost 0.005 % Ophth Mi 2.5 Ml Drops) 1 drop EYE-BOTH BEDTIME [facility] Last Admin: 07/10/23 20:42 Dose: 1 drop Documented By: ODALIS Metoprolol Succinate (Metoprolol Succinate Er 100 Mg Tab.Er.24h) 100 mg PO DAILY [facility]; Protocol Last Admin: 07/11/23 08:18 Dose: 100 mg Documented By: JOSE Multivitamins/Vitamin C (Multivitamin Tablet) 1 tab PO DAILY [facility] Last Admin: 07/11/23 08:19 Dose: 1 tab Documented By: JOSE Nicotine (Nicotine 14 Mg Patch.Td24) 14 mg TRANSDERMA DAILY [facility] Last Admin: 07/11/23 08:19 Dose: 14 mg Documented By: JOSE Nystatin (Nystatin Powder 15 Gm Bottle) 1 appl TOPICAL TID [facility]; Protocol Last Admin: 07/11/23 08:20 Dose: 1 appl Documented By: JOSE Pregabalin (Pregabalin 200 Mg Capsule) 200 mg PO TID [facility] Last Admin: 07/11/23 08:18 Dose: 200 mg Documented By: JOSE Vancomycin HCl (Vancomycin Hcl 125 Mg Capsule) 125 mg PO Q6H [facility] Labs 07/11/23 06:16 07/11/23 06:16 Labs: Laboratory Results - last 24 hr 07/10/23 07/10/23 07/11/23 16:15 19:43 06:16 MCV 109.1 H MCH 37.6 H MCHC 34.5 RDW 16.4 H Plt Count 92 L MPV 10.9 Immature Gran % (Auto) 0.6 H Neut % (Auto) 76.1 H Lymph % (Auto) 10.6 L [place] % (Auto) 9.3 Eos % (Auto) 2.2 Baso % (Auto) 1.2 Lymph # (Auto) 1.1 L [place] # (Auto) 0.9 Eos # (Auto) 0.2 Baso # (Auto) 0.1 Abs Immat Gran (auto) 0.06 H Absolute Neuts (auto) 7.6 Absolute Nucleated RBC 0.000 Nucleated RBC % (auto) 0.0 Anion Gap 14 Estim Creat Clear Calc 135.7 Estimated GFR > 60 POC Glucose 302 H 199 H Random Glucose 199 H Calcium 8.8 D Magnesium 1.4 L* 07/11/23 07/11/23 08:09 11:57 MCV MCH MCHC RDW Plt Count MPV Immature Gran % (Auto) Neut % (Auto) Lymph % (Auto) [place] % (Auto) Eos % (Auto) Baso % (Auto) Lymph # (Auto) [place] # (Auto) Eos # (Auto) Baso # (Auto) Abs Immat Gran (auto) Absolute Neuts (auto) Absolute Nucleated RBC Nucleated RBC % (auto) Anion Gap Estim Creat Clear Calc Estimated GFR POC Glucose 201 H 209 H Random Glucose Calcium Magnesium Microbiology Microbiology Results: Microbiology 07/05/23 20:37 Blood Culture - Final Blood - Venous No growth after 5 days. 07/05/23 20:20 Blood Culture - Final Blood - Venous No growth after 5 days. Assessment and Plan (1) Acute hypokalemia: Status: Acute (2) Acute hypokalemia: Status: Acute (3) Clostridium difficile diarrhea: Status: Acute Plan This is a 57 year old man admitted to ICU for AMS, lethargy and weakness. Patient was found to be hypotensive and placed on pressors. CT of abd showed pancreatitis. Acute Pancreatitis treated with albumin, IV fluids Lipase increasing but no abd pain - seen by GI, no further work up required at this time Hepatorenal syndrome with acute toxic metabolic hepatic encephalopathy secondary to alcohol abuse renal function back to baseline Hypokalemia/Hypomagensemia repleted with oral and IV potassium and IV magnesium magnesium levels remain low, will replace and follow BMP Cdiff PCR posiutive, toxin negative, but pt having copious diarrhea, so treating as such dx 07/07/23 flagyl, started in ICU - changed to po vanco 07/09; can increase to 250qid if pt develops fever or abdominal pain ongoing diarrhea, avoid imodium for now per GI, cantrial lactose free diet Diffuse fungal rash nystatin powder to groin area thrombocytopenia chronic. due to liver disease monitor as on aspirin at baseline, but platelets trending up Alcohol abuse thiamine, folic acid, MVI DM2 ss, lantus, ada diet microcytic anemia stable HH, above tx threshold likely secondary to alcohol use COPD, chronic no exacerbation albuterol as needed HLD asa and statin Mental health cymbalta smoker NRT obesity. BMI 36.5 Discussed importance of weight management as this may be contributing to worsening of other comorbidities DVT prophylaxis with heparin Attending Full code Quality Stroke Does the patient have a stroke diagnosis?: No VTE Prior VTE?: No VTE Risk Level:: Medical - moderate - high VTE Device Contraindication: N/A - Device Ordered VTE Drug Contraindication: Treatment Not Tolerated
[2023-07-11 15:52] VITALS: BP 101/58; PULSE 78; RESP 18; TEMP 36.3
[2023-07-11 16:04] LABS: Glucose, Whole Blood 171 mg/dL (60-115)
[2023-07-11 19:42] VITALS: BP 118/70; PULSE 79; RESP 20; TEMP 36.3; O2SAT 91
[2023-07-11 20:44] LABS: Glucose, Whole Blood 219 mg/dL (60-115)
[2023-07-11] MEDS: Latanoprost 0.005 % Ophth Sol 2.5 ML DROPS 1 DROP EYE-BOTH (22:30)
[2023-07-11 23:26] VITALS: BP 116/71; PULSE 71; RESP 18; TEMP 36.2; O2SAT 94
[2023-07-12 03:25] VITALS: BP 140/74; PULSE 75; RESP 18; TEMP 36.3; O2SAT 98
[2023-07-12] MEDS: Heparin Sodium,Porcine 5,000 UNIT/ML VIAL 5000 UNIT SUBCUT ×2 (04:05→14:21)
[2023-07-12] MEDS: vancomycin HCL 125 MG CAPSULE PO ×4 (04:06→21:47)
[2023-07-12 07:04] LABS: MANUAL DIFF FLAG NO
[2023-07-12 07:09] VITALS: BP 120/77; PULSE 81; RESP 18; TEMP 36.1; O2SAT 95
[2023-07-12 07:19] LABS: Basophils Absolute Auto 0.1 X10*3/uL (0.0-0.2); Basophils Percent Auto 1.5 % (0-2); Eosinophils Absolute Auto 0.3 X10*3/uL (0.0-0.4); Hematocrit 37.3 % (42.0-52.0); Hemoglobin 12.6 g/dl (14.0-18.0); Imm Gran Abs Auto 0.04 X10*3/uL (0.00-0.03); Imm Gran Pct Auto 0.4 % (0.0-0.4); Lymphocytes Absolute Auto 1.3 X10*3/uL (1.2-4.9); Lymphocytes Percent Auto 13.8 % (20-40); Mean Corpuscular HGB Conc 33.8 g/dl (31.0-36.0); Mean Corpuscular Volume 109.4 fL (80.0-98.0); Mean Platelet Volume 11.6 fL (9.4-12.4); Monocytes Absolute Auto 0.9 X10*3/uL (0.1-1.2); Monocytes Percent Auto 9.3 % (2-11); Neutrophils Absolute Auto 6.6 x10*3/uL (2.0-8.3); Red Blood Count 3.41 X10*6/uL (4.60-5.80); Red Cell Distribution Width 16.2 % (11.0-16.0); White Blood Count 9.1 X10*3/uL (4.8-10.8)
--- NOTE | 2023-07-12 07:22 | P.PNIM_ITS ---
Subjective Subjective Date of Service: 07/12/23 Interval History: seen and examined this morning follow up for cdif, pancreatitis no abdominal pain, still with significant diarrhea and borderline potassium and magnesium levels Review of Systems Review of Systems: Yes all other systems are reviewed and are negative Constitutional Constitutional: Denies chills and Denies fever(s) Cardiovascular Cardiovascular: Denies chest pain Gastrointestinal Gastrointestinal: Denies abdominal pain, Reports diarrhea, Denies nausea and Denies vomiting Physical Exam 2 Vital Signs: Vital Signs: Last Vital Signs Temp 96.9 F 07/12/23 07:09 Pulse 81 07/12/23 07:09 Resp 18 07/12/23 07:09 BP 120/77 07/12/23 07:09 Pulse Ox 95 07/12/23 07:09 O2 Del Method Room Air 07/12/23 07:09 O2 Flow Rate 2 07/11/23 03:49 BMI result Body Mass Index 36.5 Constitutional - Awake and Alert, No apparent distress Eyes - PERRLA, EOMI Cardiovascular - S1S2, RRR, No edema Respiratory - Normal lung expansion, Normal respiratory effort, No respiratory distress, CTA bilaterally Gastrointestinal - NT / ND; +BS; No rebound or guarding, incontinent or diarrhea Extremities - no calf tenderness bilaterally, no swelling Skin - Warm/Dry Neurological - Alert & oriented x3 Psychological - Appropriate affect Objective Data Active Medications Acetaminophen (Acetaminophen 325 Mg Tablet) 650 mg PO Q6H PRN PRN Reason: Pain, Moderate(Pain Scale 4-6) Last Admin: 07/08/23 15:55 Dose: 650 mg Documented By: DAWOOD Albuterol Sulfate (Albuterol Sulfate 90 Mcg 8 Gm Inhaler) 2 puff INHALE Q6H PRN PRN Reason: shortness of breath or wheezing Aspirin (Aspirin Enteric Coated 81 Mg Tablet.) 81 mg PO DAILY [facility] Last Admin: 07/11/23 08:18 Dose: 81 mg Documented By: JOSE Atorvastatin Calcium (Atorvastatin Calcium 40 Mg Tablet) 40 mg PO DAILY [facility] Last Admin: 07/11/23 08:18 Dose: 40 mg Documented By: JOSE Carbamazepine (Carbamazepine 200 Mg Tablet) 200 mg PO BID [facility] Last Admin: 07/11/23 22:30 Dose: 200 mg Documented By: AUGUSTINE Duloxetine HCl (Duloxetine Hcl 30 Mg Capsule.) 30 mg PO BID [facility] Last Admin: 07/11/23 22:30 Dose: 30 mg Documented By: AUGUSTINE Folic Acid (Folic Acid 1 Mg Tablet) 1 mg PO DAILY [facility] Last Admin: 07/11/23 08:20 Dose: 1 mg Documented By: JOSE Glucose (Glucose Gel 15 Gm Gel..Gram.) 15 gm PO Q15M PRN; Protocol PRN Reason: per Hypoglycemia Standing Ord. Heparin Sodium (Porcine) (Heparin Sodium,Porcine 5,000 Unit/Ml Vial) 5,000 unit SUBCUT Q12H [facility] Last Admin: 07/12/23 04:05 Dose: 5,000 unit Documented By: AUGUSTINE Thiamine HCl 300 mg/ Sodium (Chloride) 103 mls @ 202 mls/hr IV DAILY [facility] Last Infusion: 07/11/23 11:45 Dose: Infused Documented By: JOSE Dextrose (D10) 250 mls @ 750 mls/hr IV Q15M PRN; Protocol PRN Reason: per Hypoglycemia Standing Ord. Insulin Glargine (Insulin Glargine,Hum.Rec.Anlog 100 Unit/Ml 10 Ml Vial) 30 unit SUBCUT DAILY [facility] Last Admin: 07/11/23 08:19 Dose: 1 unit Documented By: JOSE Insulin Human Lispro (Insulin Lispro 100 Unit/Ml 3 Ml Vial) 0 unit SUBCUT QIDACHS [facility]; Protocol Last Admin: 07/11/23 22:31 Dose: 4 unit Documented By: AUGUSTINE Latanoprost (Latanoprost 0.005 % Ophth Mi 2.5 Ml Drops) 1 drop EYE-BOTH BEDTIME [facility] Last Admin: 07/11/23 22:30 Dose: 1 drop Documented By: AUGUSTINE Metoprolol Succinate (Metoprolol Succinate Er 100 Mg Tab.Er.24h) 100 mg PO DAILY [facility]; Protocol Last Admin: 07/11/23 08:18 Dose: 100 mg Documented By: JOSE Multivitamins/Vitamin C (Multivitamin Tablet) 1 tab PO DAILY [facility] Last Admin: 07/11/23 08:19 Dose: 1 tab Documented By: JOSE Nicotine (Nicotine 14 Mg Patch.Td24) 14 mg TRANSDERMA DAILY [facility] Last Admin: 07/11/23 08:19 Dose: 14 mg Documented By: JOSE Nystatin (Nystatin Powder 15 Gm Bottle) 1 appl TOPICAL TID [facility]; Protocol Last Admin: 07/11/23 22:31 Dose: 1 appl Documented By: AUGUSTINE Pregabalin (Pregabalin 200 Mg Capsule) 200 mg PO TID [facility] Last Admin: 07/11/23 22:30 Dose: 200 mg Documented By: AUGUSTINE Vancomycin HCl (Vancomycin Hcl 125 Mg Capsule) 125 mg PO Q6H [facility] Last Admin: 07/12/23 04:06 Dose: 125 mg Documented By: AUGUSTINE Labs 07/12/23 06:32 07/12/23 06:32 Labs: Laboratory Results - last 24 hr 07/11/23 07/11/23 07/11/23 08:09 11:57 15:55 POC Glucose 201 H 209 H 171 H 07/11/23 20:40 POC Glucose 219 H Assessment and Plan (1) Acute hypokalemia: Status: Acute (2) Acute hypokalemia: Status: Acute (3) Clostridium difficile diarrhea: Status: Acute (4) Hepatorenal failure: Status: Acute (5) Pancreatitis: Status: Acute Plan This is a 57 year old man admitted to ICU for AMS, lethargy and weakness. Patient was found to be hypotensive and placed on pressors. CT of abd showed pancreatitis. Hypokalemia/Hypomagensemia- due to ongoing copious diarrhea repleted with oral and IV potassium and IV magnesium K 4.1 -->3.3 today. Mag 1.8 Give KCl 40meq x1 Follow lytes Cdiff PCR positive, toxin negative, but pt having copious diarrhea, so treating as such dx 07/07/23 flagyl, started in ICU - changed to po vanco 07/09; can increase to 250qid if pt develops fever or abdominal pain ongoing diarrhea, avoid imodium for now per GI, can trial lactose free diet Acute Pancreatitis- resolved treated with albumin, IV fluids Lipase increasing but no abd pain - seen by GI, no further work up required at this time Tolerating diet Hepatorenal syndrome with acute toxic metabolic hepatic encephalopathy secondary to alcohol abuse renal function back to baseline Diffuse fungal rash nystatin powder to groin area thrombocytopenia chronic. due to liver disease monitor as on aspirin at baseline, but platelets trending up Alcohol abuse thiamine, folic acid, MVI DM2 ss, lantus, ada diet microcytic anemia stable HH, above tx threshold likely secondary to alcohol use COPD, chronic no exacerbation albuterol as needed HLD asa and statin Mental health cymbalta smoker NRT obesity. BMI 36.5 Discussed importance of weight management as this may be contributing to worsening of other comorbidities DVT prophylaxis with heparin Attending Full code Pt requires ongoing inpt stay due to ongoing copious diarrhea secondary to CDiff colitis with subsequent drop in electrolyte levels requiring daily monitoring with ongoing repletion Quality Stroke Does the patient have a stroke diagnosis?: No VTE Prior VTE?: No VTE Risk Level:: Medical - moderate - high VTE Device Contraindication: N/A - Device Ordered VTE Drug Contraindication: Treatment Not Tolerated
[2023-07-12 07:24] LABS: Glucose, Whole Blood 172 mg/dL (60-115)
[2023-07-12 07:24] LABS: Platelet Count 92 X10*3/uL (160-400)
[2023-07-12 07:34] LABS: Anion Gap 14 (12-20); Blood Urea Nitrogen 8 mg/dL (9-16); Calcium 8.8 mg/dL (8.4-10.2); Carbon Dioxide 26 mmol/L (22-29); Chloride 102 mmol/L (96-108); Creatinine Clr Calc Pharmacy 141.1; Estimated Glomerular Filt Rate > 60; Glucose Random 167 mg/dL (60-115); Magnesium 1.8 mg/dL (1.6-2.6); Potassium 3.3 mmol/L (3.3-5.1); Sodium 139 mmol/L (135-145)
[2023-07-12] MEDS: Insulin Glargine,Hum.rec.anlog 100 UNIT/ML 10 ML VIAL 30 UNIT SUBCUT (07:48)
[2023-07-12] MEDS: Insulin Lispro 100 UNIT/ML 3 ML VIAL SUBCUT ×4 (07:48→21:46)
[2023-07-12] MEDS: Aspirin Enteric Coated 81 MG TABLET.DR PO (07:52)
[2023-07-12] MEDS: Folic Acid 1 MG TABLET PO (07:52)
[2023-07-12] MEDS: Nicotine 14 MG PATCH.TD24 TRANSDERMA (07:52)
[2023-07-12] MEDS: carBAMazepine 200 MG TABLET PO ×2 (07:52→21:48)
[2023-07-12] MEDS: Pregabalin 200 MG CAPSULE PO ×3 (07:52→21:47)
[2023-07-12] MEDS: Atorvastatin Calcium 40 MG TABLET PO (07:52)
[2023-07-12] MEDS: DULoxetine HCl 30 MG CAPSULE.DR PO ×2 (07:52→21:47)
[2023-07-12] MEDS: Metoprolol Succinate ER 100 MG TAB.ER.24H PO (07:52)
[2023-07-12] MEDS: Multivitamin TABLET 1 TAB PO (07:52)
[2023-07-12] MEDS: Nystatin Powder 15 GM BOTTLE 1 APPL TOPICAL ×3 (08:01→21:52)
[2023-07-12] MEDS: Potassium Chloride Packet 20 MEQ PACKET 40 MEQ PO (08:01)
[2023-07-12 11:05] VITALS: BP 129/75; PULSE 78; RESP 18; TEMP 36.6
[2023-07-12 11:36] LABS: Glucose, Whole Blood 171 mg/dL (60-115)
[2023-07-12 15:11] VITALS: BP 122/79; PULSE 84; RESP 18; TEMP 36.2; O2SAT 94
[2023-07-12 16:11] LABS: Glucose, Whole Blood 207 mg/dL (60-115)
[2023-07-12 19:53] VITALS: BP 115/73; PULSE 75; RESP 14; TEMP 36.3; O2SAT 93
[2023-07-12 20:45] LABS: Glucose, Whole Blood 177 mg/dL (60-115)
[2023-07-12] MEDS: Latanoprost 0.005 % Ophth Sol 2.5 ML DROPS 1 DROP EYE-BOTH (21:52)
[2023-07-12 23:28] VITALS: BP 119/75; PULSE 75; RESP 16; TEMP 36.5; O2SAT 98
[2023-07-13 03:52] VITALS: BP 145/87; PULSE 84; RESP 18; TEMP 36.6; O2SAT 98
[2023-07-13] MEDS: vancomycin HCL 125 MG CAPSULE PO ×2 (04:30→11:12)
[2023-07-13] MEDS: Heparin Sodium,Porcine 5,000 UNIT/ML VIAL 5000 UNIT SUBCUT (04:30)
[2023-07-13] MEDS: Acetaminophen 325 MG TABLET 650 MG PO (06:30)
[2023-07-13 07:26] LABS: Glucose, Whole Blood 160 mg/dL (60-115)
[2023-07-13 07:29] LABS: MANUAL DIFF FLAG NO
[2023-07-13 07:31] VITALS: BP 129/79; PULSE 83; RESP 21; TEMP 36.7; O2SAT 95
[2023-07-13 07:53] LABS: Anion Gap 15 (12-20); Blood Urea Nitrogen 11 mg/dL (9-16); Calcium 9.2 mg/dL (8.4-10.2); Carbon Dioxide 21 mmol/L (22-29); Chloride 105 mmol/L (96-108); Creatinine Clr Calc Pharmacy 160.1; Estimated Glomerular Filt Rate > 60; Glucose Random 147 mg/dL (60-115); Potassium 3.8 mmol/L (3.3-5.1); Sodium 137 mmol/L (135-145)
[2023-07-13 07:58] LABS: Basophils Absolute Auto 0.2 X10*3/uL (0.0-0.2); Basophils Percent Auto 1.6 % (0-2); Eosinophils Absolute Auto 0.2 X10*3/uL (0.0-0.4); Eosinophils Percent Auto 2.6 % (0-4); Hematocrit 39.1 % (42.0-52.0); Hemoglobin 13.6 g/dl (14.0-18.0); Imm Gran Abs Auto 0.03 X10*3/uL (0.00-0.03); Imm Gran Pct Auto 0.3 % (0.0-0.4); Lymphocytes Absolute Auto 1.5 X10*3/uL (1.2-4.9); Lymphocytes Percent Auto 16.1 % (20-40); Mean Corpuscular HGB Conc 34.8 g/dl (31.0-36.0); Mean Corpuscular Hemoglobin 37.7 pg (27.0-33.0); Mean Corpuscular Volume 108.3 fL (80.0-98.0); Mean Platelet Volume 11.7 fL (9.4-12.4); Monocytes Absolute Auto 0.9 X10*3/uL (0.1-1.2); Monocytes Percent Auto 9.8 % (2-11); Neutrophils Absolute Auto 6.5 x10*3/uL (2.0-8.3); Neutrophils Percent Auto 69.6 % (45-73); Platelet Count 111 X10*3/uL (160-400); Red Blood Count 3.61 X10*6/uL (4.60-5.80); White Blood Count 9.3 X10*3/uL (4.8-10.8)
[2023-07-13] MEDS: Thiamine HCL 100 MG in 0.9 % Sodium Chloride 100 ML 202 MG IV (08:18)
[2023-07-13] MEDS: Atorvastatin Calcium 40 MG TABLET PO (08:20)
[2023-07-13] MEDS: carBAMazepine 200 MG TABLET PO (08:20)
[2023-07-13] MEDS: DULoxetine HCl 30 MG CAPSULE.DR PO (08:20)
[2023-07-13] MEDS: Multivitamin TABLET 1 TAB PO (08:20)
[2023-07-13] MEDS: Pregabalin 200 MG CAPSULE PO (08:20)
[2023-07-13] MEDS: Folic Acid 1 MG TABLET PO (08:20)
[2023-07-13] MEDS: Loperamide HCl 2 MG CAPSULE PO (08:20)
[2023-07-13] MEDS: Aspirin Enteric Coated 81 MG TABLET.DR PO (08:20)
[2023-07-13] MEDS: Metoprolol Succinate ER 100 MG TAB.ER.24H PO (08:20)
[2023-07-13] MEDS: Insulin Glargine,Hum.rec.anlog 100 UNIT/ML 10 ML VIAL 30 UNIT SUBCUT (08:20)
[2023-07-13] MEDS: Insulin Lispro 100 UNIT/ML 3 ML VIAL SUBCUT (08:21)
[2023-07-13] MEDS: Nicotine 14 MG PATCH.TD24 TRANSDERMA (08:22)
[2023-07-13] MEDS: Nystatin Powder 15 GM BOTTLE 1 APPL TOPICAL (08:27)
--- NOTE | 2023-07-13 10:37 | P.DS_ITS ---
DS: Providers Provider Date of Service: 07/13/23 Date of admission: 07/06/23 00:32 Date of discharge: 07/13/23 Primary care physician: MONTY Gómez Admitting clinician: Hudson Bradshaw Attending physician on admission: Itz Lopez Consults: 07/06/23 20:00 Consult to Wound Care Routine Reason for consultation: multiple skin integrity concerns- MASD/excoriation/diabetic ulcer 07/09/23 08:17 Consult to Gastroenterology Routine Consulting Provider: Pilo Gunn Reason for consultation: increasing lipase, pancreatitis Attending physician on discharge: Moo You Discharging clinician: Lisa Ulloa DS: Diagnosis Discharge Diagnosis (1) Acute hypokalemia: Status: Acute (2) Clostridium difficile diarrhea: Status: Acute (3) Hepatorenal failure: Status: Acute (4) Pancreatitis: Status: Acute DS: Summary Hospital Course Hospital Course: ICU HPI on admission by Hudson Bradshaw PA-C on 07/05: 58-year-old patient with underlying history of asthma, COPD, bronchitis, coronary disease, hypoxic respiratory failure leading to tracheostomy placement, obstructive sleep apnea, hep C, alcoholism, type 2 diabetes, angioedema, lower extremity edema, thrombocytopenia, chronic stasis dermatitis wounds among other things.? Patient presented to the emergency room with reported altered mental status, lethargy, weakness and concern for having a diabetic emergency for he has not been eating well at home according to family members.? His had reported that his last alcoholic drink was yesterday morning. Patient was unable to give a history, the ER workup revealed hypotension with blood pressure of 68/30, satting 92% on room air without fever, the patient was given 3 L of IV fluids without improvement of his blood pressure, he also received 2 bottles of albumin, he did not have a white count, his laboratories were significant for sodium 133, potassium 2.3, BUN of 33, creatinine 5.17 when his baseline is 0.8, lactic acid 2.3 which after IV fluids went down to 1.4, phosphorus 5.2, magnesium 1.6, total bili 1.5, bilirubin direct 1.2, ammonia 61, albumin 2.3, lipase 81. Chest x-ray did not show infiltrates, CT of the abdomen and pelvis did show mild edematous changes of the pancreas consistent with acute pancreatitis.? Severe hepatic steatosis with questionable nodular contour of the liver which could represent underlying cirrhosis. ?His urine is positive for barbiturates.? Blood alcohol level not detectable.? Head CT negative.? Given the ongoing hypotension, the patient was admitted to the ICU for further care. Hospital course: Initially admitted to ICU due to refractory hypotension due to hypovolemia and 3rd spacing (no sepsis) requiring IV vasopressors with multifactorial RADHA (likely ATN in setting of hypoperfusion worsened by hypovolemia and nephrotoxins as well as suspected HRS) and acute pancreatitis. he was managed with aggressive IVF, IV albumin, rectal lactulose due to acute hepatic encephalopathy, and started on phenobarbital per protocol for early alcohol withdrawal. He was also started on iv thiamine and folic acid and monitored closely on ciwa. Blood pressures stabilized and weaned from pressors. While in the ICU, developed copious diarrhea with fecal incontinence (reports incontinence at baseline). CDiff gene positive, toxin negative. Given positive symptoms, started on IV flagyl on 07/06 and transitioned to PO vanco on 07/09. Downgraded to med/tele on 07/07 with remainder of hospital course uneventful. Evaluated by gastroenterology who felt that the edema around the pancreas was more related to hypoperfusion of the pancreas due to hypotension. He tolerated diet advancement well and IVF were discontinued. Strict avoidance of alcohol was advised. Pt declined assistance from addiction medicine team. With ongoing diarrhea, patient did experience hypokalemia and hypomagnesemia which were repleted. On morning of discharge maintaining potassium of 3.8 and loperamide was added at the recommendation of GI. Pt will be discharged on po vancomycin 125mg q6h for additional 28 doses as well as potassium chloride 20meq ER x7 days. repeat BMP in 7 days. Was followed by wound RN due to fungal dermatitis on nystatin powder. Follow up with pcp. Hypokalemia/Hypomagensemia- due to GI losses repleted K 3.8 on discharge continue KCl 20meq er x 7 days. Repeat BMP 1 week Cdiff PCR positive, toxin negative, but pt having copious diarrhea, so treating as such dx 07/07/23. Initially treated with IV flagyl and transitioned to PO vanco (07/09). To complete addl 28 doses on discharge Diet as tolerated Acute Pancreatitis- resolved treated with albumin, IV fluids Lipase increased but no abd pain - seen by GI, no further work up required at this time Tolerating diet Hepatorenal syndrome with acute toxic metabolic hepatic encephalopathy secondary to alcohol abuse renal function/mentation back to baseline Diffuse fungal rash nystatin powder to groin area thrombocytopenia chronic. due to liver disease monitor as on aspirin at baseline, but platelets trending up Alcohol abuse with acute withdrawal completed phenobarbital per protocol for withdrawal. Monitored on ciws thiamine, folic acid, MVI Hypotension due to hypovolemia, weaned from vasopressors ivf and iv albumin DM2 ss, lantus, ada diet microcytic anemia stable HH, above tx threshold likely secondary to alcohol use COPD, chronic no exacerbation albuterol as needed HLD asa and statin Mental health cymbalta smoker NRT obesity. BMI 36.5 Discussed importance of weight management as this may be contributing to worsening of other comorbidities Time spent discussing smoking cessation with patient: 3 to 10 minutes Status at Discharge Functional status at discharge: independent ambulation Overall status at discharge: patient is progressing back to baseline Time Attestation Discharge Coordination Time (in mins): 43 Quality: Safe Use of Opioids Does Pt have an Active Cancer Diagnosis on the Problem List?: No Quality: Stroke Does the patient have a stroke diagnosis?: No Physical Exam Vital Signs: Vital Signs: Last Vital Signs Temp 98.1 F 07/13/23 07:31 Pulse 83 07/13/23 07:31 Resp 21 H 07/13/23 07:31 BP 129/79 07/13/23 07:31 Pulse Ox 95 07/13/23 07:31 O2 Del Method Room Air 07/13/23 07:31 O2 Flow Rate 2 07/13/23 03:52 BMI result Body Mass Index 36.5 Constitutional - Awake and Alert, No apparent distress Eyes - PERRLA, EOMI Cardiovascular - S1S2, RRR, No edema Respiratory - Normal lung expansion, Normal respiratory effort, No respiratory distress, CTA bilaterally Gastrointestinal - NT / ND; +BS; No rebound or guarding Extremities - no calf tenderness bilaterally, no swelling Skin - Warm/Dry Neurological - Alert & oriented x3 Psychological - Appropriate affect DS: Data Data Completed and Pending Completed studies during hospitalization [Text1]: Procedures Bypass Trachea to Cutaneous with Tracheostomy Device, Percutaneous Approach (05/15/22) Change Tracheostomy Device in Trachea, External Approach (05/15/22) Detoxification Services for Substance Abuse Treatment (06/07/23) Insertion of Endotracheal Airway into Trachea, Via Natural or Artificial Opening (12/04/22) Respiratory Ventilation, 24-96 Consecutive Hours (12/04/22) Respiratory Ventilation, Greater than 96 Consecutive Hours (05/15/22) Transfusion of Nonautologous Frozen Plasma into Peripheral Vein, Percutaneous Ap proach (12/04/22) Labs on day of discharge: Laboratory Results - last 24 hr 07/12/23 07/12/23 07/12/23 11:11 16:05 20:40 WBC RBC Hgb Hct MCV MCH MCHC RDW Plt Count MPV Immature Gran % (Auto) Neut % (Auto) Lymph % (Auto) [place] % (Auto) Eos % (Auto) Baso % (Auto) Lymph # (Auto) [place] # (Auto) Eos # (Auto) Baso # (Auto) Abs Immat Gran (auto) Absolute Neuts (auto) Absolute Nucleated RBC Nucleated RBC % (auto) Sodium Potassium Chloride Carbon Dioxide Anion Gap BUN Creatinine Estim Creat Clear Calc Estimated GFR POC Glucose 171 H 207 H 177 H Random Glucose Calcium 07/13/23 07/13/23 06:56 07:04 WBC 9.3 RBC 3.61 L Hgb 13.6 L Hct 39.1 L MCV 108.3 H MCH 37.7 H MCHC 34.8 RDW 16.0 Plt Count 111 L MPV 11.7 Immature Gran % (Auto) 0.3 Neut % (Auto) 69.6 Lymph % (Auto) 16.1 L [place] % (Auto) 9.8 Eos % (Auto) 2.6 Baso % (Auto) 1.6 Lymph # (Auto) 1.5 [place] # (Auto) 0.9 Eos # (Auto) 0.2 Baso # (Auto) 0.2 Abs Immat Gran (auto) 0.03 Absolute Neuts (auto) 6.5 Absolute Nucleated RBC 0.000 Nucleated RBC % (auto) 0.0 Sodium 137 Potassium 3.8 Chloride 105 Carbon Dioxide 21 L Anion Gap 15 BUN 11 Creatinine 0.67 Estim Creat Clear Calc 160.1 Estimated GFR > 60 POC Glucose 160 H Random Glucose 147 H Calcium 9.2 Discharge Plan Discharge Anticipated Discharge Date/Time: 07/13/23 10:39 Patient Disposition: Home Health Service Discharge Diagnosis: Alcoholic pancreatitis, CDiff colitis Referrals: Esther Matute [Outside] - 1 Week Lauri Gonzalez, [employer] [Primary Care Provider] - 1 Week Discharge Medications: New vancomycin 125 mg Capsule 125 mg PO Q6H Qty: 28 0RF nicotine 14 mg/24 hr Patch 24 Hour 14 mg transdermal DAILY Qty: 28 2RF loperamide 2 mg Capsule 2 mg PO Q6H PRN (Reason: Diarrhea) Qty: 30 0RF thiamine HCl (vitamin B1) 100 mg tablet 100 mg PO DAILY Qty: 90 0RF potassium chloride 20 mEq tablet extended release 20 meq PO DAILY Qty: 7 0RF Continued (DME) lancets [BD Ultra-Fine II Lancets] 30 gauge misc See Rx Instructions .Route Qty: 100 0RF Rx Instructions: TID (DME) blood-glucose meter [Accu-Chek Guide Me Glucose Mtr] Misc See Rx Instructions .Route Qty: 1 0RF Rx Instructions: TID testing insulin glargine [Lantus Solostar U-100 Insulin] 100 unit/mL (3 mL) insulin pen 30 unit subcut DAILY Qty: 30 1RF furosemide 20 mg tablet 20 mg PO BID Qty: 180 1RF (DME) Accu-Chek Guide test strips Strip See Rx Instructions .Route Qty: 300 1RF Rx Instructions: tid testing (DME) pen needle, diabetic [BD Ultra-Fine Mini Pen Needle] 31 gauge x 3/16 needle See Rx Instructions .Route Qty: 100 1RF Rx Instructions: Use to inject insulin once per day folic acid 1 mg tablet 1 mg PO DAILY Qty: 90 1RF atorvastatin 40 mg tablet 40 mg PO DAILY Qty: 90 3RF metoprolol succinate 50 mg tablet extended release 24 hr 100 mg PO DAILY Qty: 180 0RF Rx Instructions: OVERDUE FOR APPT. PLEASE CALL [phone] TO SCHEDULE PPT SO WE CAN CONTINUE REFILLING YOUR MEDICATIONS. multivitamin Tablet 1 tab PO DAILY duloxetine 30 mg capsule,delayed release(DR/EC) 1 cap PO BID aspirin 81 mg Tablet,Delayed Release (Dr/Ec) 81 mg PO DAILY carbamazepine 200 mg tablet 200 mg PO BID pregabalin 200 mg Capsule 200 mg PO TID brimonidine 0.2 % drops 1 drp ophthalmic-Left TID Qty: 5 0RF Rx Instructions: administer approximately 8 hours apart latanoprost 0.005 % drops 1 drp ophthalmic (eye) BEDTIME albuterol sulfate 90 mcg/actuation HFA aerosol inhaler 2 puff inhalation Q6H PRN (Reason: shortness of breath or wheezing) Discontinued lisinopril 10 mg tablet 10 mg PO DAILY Discharge Orders: Discharge Order (Routine); Ordered 07/13/23 Ordered By: Lisa Ulloa Diet: Advance to usual diet Activity on Discharge: As tolerated Stand Alone Forms: Patient Portal Discharge page Print Language: Azerbaijani Other Ambulatory Orders: Basic Metabolic Panel (Routine) Timeframe: 1 Week Facility: [facility] - Location: Laboratory Ordered By: Lisa Ulloa Care Plan Goals: Stop drinking alcohol quit smoking prevent recurrent pancreatitis Resolve CDiff infection Health Concerns: Alcoholic pancreatitis Cdiff infection/diarrhea Alcohol use disorder Acute kidney injury Plan of Treatment: 1)Alcoholic pancreatitis -Resolved. Tolerating diet advancement. Abstain from all alcohol. You have declined assistance with alcohol cessation. Recommend reaching out to social supports and support groups/networks to help with sobriety. You were treated for alcohol withdrawal and are outside the window for acute withdrawal. OK to stop alcohol consumption completely now -Low fat/diabetic diet -continue thiamine (vitamin b1) and folic acid (vitamin b9) daily due to history of significant alcohol use 2)CDiff infection/diarrhea -Continue oral vancomycin (antibiotic) x 7 days (28 doses)- do not miss or skip doses -Use imodium (loperamide) as needed for ongoing diarrhea 3)Acute kidney injury -due to diarrhea. resolved. Continue oral hydration 4)Low potassium -due to recurrent diarrhea. Continue 20meq oral potassium chloride x1 week, then recheck BMP in 1 week at the lab 5)Hypertension -blood pressures stable on metoprolol -stop lisinopril. Blood pressures stable without lisinopril 6) Nicotine dependence -use patches. Quit smoking Assessment: See above. See discharge summary Patient Instructions: Pancreatitis (DC), Low Fat Diet (DC), Alcohol Dependence (DC) Discharge Date/Time: 07/13/23 12:00
--- NOTE | 2023-07-13 12:00 | W.MHC.F2F ---
Service Date Service Date: 07/13/23 Encounter Date of encounter: 07/13/23 Reasons for Services Signs and symptoms assessed: fungal dermatitis groin/abd pannus, stage 1 decubitus ulcer buttock wtih concern for ongoing skin breakdown given fecal incontinence, diabetic ulcers fingers/toes. Weakness r/t hospital stay with limited OOB due to pt refusal. Gait instability Reason for long-term: wound care (diabetic ulcers, monitor stage 1 buttock with ongoing fecal incontinence, fungal dermatitis), medication management and medication treatment Reason for physical therapy: home safety and mobility, therapeutic exercises and gait/transfer training Reason for occupational therapy: home safety and mobility, therapeutic exercises and gait/transfer training Homebound: Leaving the home is medically contraindicated at this time without the asist of a device and/or another person due th the listed conditions above and below. Reason homebound: unsteady gait / fall risk, leg weakness, poor balance / fall risk and weakness related to hospital stay Certification: Based on the above findings, I certify that this patient is confined to the home and needs intermittent long-term care, physical therapy and/or speech therapy, or continues to need occupational therapy. The patient is under my care, and I have initiated the establishment of the plan of care. The patient will be followed by a physician who will periodically review the plan of care. Time Spent With Patient Time: Total time managing care of this patient today ____ minutes.
--- NOTE | 2023-07-13 12:40 | MHC.CM.PN ---
Pt is medically cleared for D/C home with angel BLEVINS, pts to transport him home.
== END 2023-07-13 12:00 | disposition home health service (06) | DRG 438 ==
LOC: HO.ED 21:04 → HO.EDOVER 07-06 00:39 → HO.ICU 07-06 00:44 → HO.IMC 07-09 13:10
PROVIDERS: Internal Medicine Critical Care Medicine; Internal Medicine Pulmonary Disease; Nurse Practitioner Acute Care; Physician Assistant Medical; Admitting Provider Physician Assistant Medical; Emergency Provider Emergency Medicine Emergency Medical Services; PCP Nurse Practitioner Family; Visit Provider Physician Assistant
DX: K85.20 Alcohol induced acute pancreatitis without necrosis or infection (principal); G92.8 Other toxic encephalopathy; K76.7 Hepatorenal syndrome; N17.0 Acute kidney failure with tubular necrosis; E87.1 Hypo-osmolality and hyponatremia; A04.72 Enterocolitis due to Clostridium difficile, not specified as recurrent; F10.239 Alcohol dependence with withdrawal, unspecified; J96.11 Chronic respiratory failure with hypoxia; E86.1 Hypovolemia; I25.10 Atherosclerotic heart disease of native coronary artery without angina pectoris; B37.2 Candidiasis of skin and nail; D69.59 Other secondary thrombocytopenia; E87.6 Hypokalemia; E83.42 Hypomagnesemia; I95.9 Hypotension, unspecified; E66.9 Obesity, unspecified; Z68.36 Body mass index [BMI] 36.0-36.9, adult; E78.5 Hyperlipidemia, unspecified; D50.9 Iron deficiency anemia, unspecified; K76.82 Hepatic encephalopathy; B18.2 Chronic viral hepatitis C; K70.30 Alcoholic cirrhosis of liver without ascites; E11.9 Type 2 diabetes mellitus without complications; Z79.4 Long term (current) use of insulin; Z79.82 Long term (current) use of aspirin; Z79.899 Other long term (current) drug therapy
CPT/HCPCS: 36415; 70450; 71045; 74176; 80048; 80053; 80076; 80307; 81001; 82140; 82272; 82803; 82947; 83605; 83690; 83735; 84100; 84484; 85025; 85610; 87040; 87086; 87324; 87493; 93005; 97116; 97162; 97530; 99285; C1758; J0613; J0696; J1644; J1836; J1956; J2560; J3411; J3475; J3480; J7120; P9047

== ENCOUNTER → 2023-07-05 20:02 | Outpatient (BNV) | payer OTHER, SELFPAY | PROVIDERS: Admitting Provider Physician Assistant Medical; Emergency Provider Emergency Medicine Emergency Medical Services; PCP Nurse Practitioner Family; Visit Provider Internal Medicine Cardiovascular Disease | DX: I45.10 Unspecified right bundle-branch block (principal) | CPT/HCPCS: 93010 ==

== ENCOUNTER → 2023-07-06 00:32 | Outpatient (BNV) | payer MEDICARE, SELFPAY | PROVIDERS: Admitting Provider Physician Assistant Medical; Emergency Provider Emergency Medicine Emergency Medical Services; PCP Nurse Practitioner Family; Visit Provider Nurse Practitioner Acute Care | DX: E87.6 Hypokalemia (principal); A04.72 Enterocolitis due to Clostridium difficile, not specified as recurrent; K76.7 Hepatorenal syndrome; K85.90 Acute pancreatitis without necrosis or infection, unspecified | CPT/HCPCS: 99232; 99239; 99499; G0180 ==

== ENCOUNTER → 2023-07-06 00:32 | Outpatient (BNV) | payer OTHER, SELFPAY | PROVIDERS: Admitting Provider Physician Assistant Medical; Emergency Provider Emergency Medicine Emergency Medical Services; PCP Nurse Practitioner Family; Visit Provider Physician Assistant Medical | DX: N17.9 Acute kidney failure, unspecified (principal); K85.90 Acute pancreatitis without necrosis or infection, unspecified; J44.9 Chronic obstructive pulmonary disease, unspecified; E11.9 Type 2 diabetes mellitus without complications; D69.6 Thrombocytopenia, unspecified | CPT/HCPCS: 36556; 99291; 99292 ==

== ENCOUNTER 2023-08-08 10:33 | Outpatient (REF) | payer MEDICARE, SELFPAY ==
[2023-08-08 13:03] LABS: MANUAL DIFF FLAG NO
[2023-08-08 13:20] LABS: Appearance Urine Cloudy; Color Urine Dark Yellow; Glucose Urine UA Negative (Negative); Leukocyte Esterase Urine Negative (Negative); Nitrite Urine Negative (Negative); PH 5.5 (5.0-9.0); Specific Gravity - Urine 1.015 (1.005-1.025); Urine Blood Negative (Negative); Urine Ketones Negative (Negative); Urine Protein Trace mg/dL (Neg-Trace)
[2023-08-08 13:25] LABS: Basophils Absolute Auto 0.1 X10*3/uL (0.0-0.2); Basophils Percent Auto 1.2 % (0-2); Eosinophils Absolute Auto 0.2 X10*3/uL (0.0-0.4); Eosinophils Percent Auto 2.7 % (0-4); Hematocrit 39.6 % (42.0-52.0); Hemoglobin 13.3 g/dl (14.0-18.0); Imm Gran Abs Auto 0.06 X10*3/uL (0.00-0.03); Imm Gran Pct Auto 0.7 % (0.0-0.4); Lymphocytes Absolute Auto 1.9 X10*3/uL (1.2-4.9); Lymphocytes Percent Auto 21.9 % (20-40); Mean Corpuscular HGB Conc 33.6 g/dl (31.0-36.0); Mean Corpuscular Hemoglobin 36.5 pg (27.0-33.0); Mean Corpuscular Volume 108.8 fL (80.0-98.0); Mean Platelet Volume 10.9 fL (9.4-12.4); Monocytes Absolute Auto 0.5 X10*3/uL (0.1-1.2); Monocytes Percent Auto 6.2 % (2-11); Neutrophils Absolute Auto 5.8 x10*3/uL (2.0-8.3); Neutrophils Percent Auto 67.3 % (45-73); Platelet Count 104 X10*3/uL (160-400); Red Blood Count 3.64 X10*6/uL (4.60-5.80); Red Cell Distribution Width 16.4 % (11.0-16.0); White Blood Count 8.6 X10*3/uL (4.8-10.8)
[2023-08-08 14:14] LABS: Alanine Aminotransferase 28 U/L (0-40); Albumin Level 3.1 g/dL (3.5-5.0); Alkaline Phosphatase 203 U/L (39-117); Anion Gap 19 (12-20); Aspartate Amino Transferase 84 U/L (5-37); Bilirubin Total 0.8 mg/dL (0.0-1.0); Blood Urea Nitrogen 4 mg/dL (9-16); Calcium 8.3 mg/dL (8.4-10.2); Carbon Dioxide 33 mmol/L (22-29); Chloride 91 mmol/L (96-108); Estimated Glomerular Filt Rate > 60; Glucose Random 191 mg/dL (60-115); Magnesium 1.6 mg/dL (1.6-2.6); Potassium 3.3 mmol/L (3.3-5.1); Sodium 140 mmol/L (135-145); TSH reflex Free T4 1.93 uIU/mL (0.32-4.0)
== END 2023-08-08 10:34 | disposition home or self-care (01) ==
LOC: HO.HMGCLDS 10:33
PROVIDERS: PCP Nurse Practitioner Family; Visit Provider Nurse Practitioner Family
DX: M79.89 Other specified soft tissue disorders (principal); K74.60 Unspecified cirrhosis of liver; R60.0 Localized edema
CPT/HCPCS: 36415; 80053; 81003; 83735; 84443; 85025

== ENCOUNTER 2023-08-08 10:56 | Outpatient (AMB) | payer MEDICARE, SELFPAY ==
--- NOTE | 2023-08-08 10:53 | AM.OFFWIN_ITS ---
Intake Vital Signs 08/08/23 10:59 BP 128/74 Blood Pressure Location Lt brachial Position Sitting Pulse 95 Pulse Source Pulse Oximeter Pulse Oximetry (%) 87 L Oxygen Delivery Method Room Air Intake Visit Reasons: EP rash from hosp diaper groin front/rear Intake Note: pt is here today for rash from hospital diaper in the front near his groin that started about 1-2 weeks ago. Patient Tobacco Use Status: Current everyday Tobacco user Allergies cyclobenzaprine [From FLEXERIL] Allergy (Unknown, Verified 08/08/23 11:01) RASH penicillin V Allergy (Unknown, Verified 08/08/23 11:) anaphylaxis pineapple Allergy (Unknown, Verified 08/08/23 11:) Unknown FADIA Inhibitors Adverse Reaction (Severe, Verified 08/08/23 11:) Angioedema HPI HPI Comments History of Present Illness Details This is a 57-year-old male with a past medical history of asthma, COPD, chronic hypoxic failure, angioedema, insulin-dependent diabetes, and most recently C. difficile diarrhea, acute kidney injury and encephalopathy resulting in an ICU admission in June 2023, presenting for evaluation of an itching and burning rash in his groin area that has been present for the past 6-7 days. Of note, patient was noted to a presumed fungal infection in his groin while hospitalized in June. Patient states he was not discharged from the hospital with any treatment for this fungal infection. Patient states that his diarrhea is no longer present. Upon intake the patient's oxygenation is 89% on room air and the patient is not oxygen dependent at home. Patient does endorse smoking cigarettes daily and has the [facility] coming into his home 3 times a week and he states that they do check his oxygen at every visit. Patient's blood glucose at this time is 216 mg/dL. [facility] Medical History Pneumonia COPD (chronic obstructive pulmonary disease) Diabetes Nicotine dependence, cigarettes, uncomplicated Tracheostomy care Respiratory failure Diastolic CHF Seizure disorder History of TIA (transient ischemic attack) History of hepatitis C CAD (coronary artery disease) HTN (hypertension) Insulin dependent type 2 diabetes mellitus Diabetic neuropathy Restrictive airway disease KD (obstructive sleep apnea) ETOH abuse Morbid obesity Transaminitis Fatty liver History of colon polyps Obesity Microalbuminuria Foot ulcer, left Fracture of right tibia and fibula Metatarsal bone fracture Surgical History History of surgery on lower extremity (~2019) History of lumbar spinal fusion History of colonoscopy (~2018) History of hernia repair History of cardiac catheterization (~2018) Family History Father CVD (cardiovascular disease) Colon cancer Mother No problems noted. Brother Liver cancer Paternal Aunt Colon cancer Social History Household Members: Spouse Household Members Other:: Housing: House Do you presently have visiting nurse or other home services: No Unable to assess alcohol history related to: Unable to respond Alcohol intake: current Alcohol intake frequency: 0-2 drinks per day Alcohol type: beer and hard liquor Patient Tobacco Use Status: Current everyday Tobacco user Tobacco use type: Cigarette Years Smoked: onset 18yo, 1-2ppd x 37yrsm now 1/2ppd - 50pyh Second Hand Smoke Exposure: Yes Substance Use Type: Marijuana Advance Directives Date on File: 03/20/22 service: No Current occupational status: disabled Current occupation: right handed Cognitive needs: No Hearing needs: No Vision needs: No Review of Systems Const All systems reviewed & are unremarkable except as noted in HPI and below Denies chills and Denies fever(s) GI Denies constipation, Denies fecal incontinence and Denies diarrhea Reports no additional complaints Musc Reports no additional complaints Skin/Breast Reports pruritus, Reports non-healing lesions, Reports erythema and Reports rash Neuro Reports no additional complaints and Denies confusion Psych Denies confusion Physical Exam Vital Signs: Last Vital Signs Pulse 95 08/08/23 10:59 BP 128/74 08/08/23 10:59 Pulse Ox 87 L 08/08/23 10:59 Oxygen Delivery Method Room Air 08/08/23 10:59 Oxygen is 89% on room air. Patient's breathing is not labored and the patient denies dyspnea. Patient smells of cigarette smoke and endorses tobacco use daily. Const General: cooperative, no acute distress, alert and awake; No confusion or lethargic Nutritional Appearance: obese Orientation/consciousness: patient oriented x3, No confusion and No lethargic Limitations: wheelchair Resp Effort & Inspection: normal respiratory effort, able to speak in complete sentences, no audible wheezes, no cough and no respiratory distress Auscultation: clear to auscultation bilaterally and diminished lung sounds diffuse Skin Other: There are moist erythematous papules located diffusely in the groin, proximal lower extremities bilaterally and under the scrotum on an erythematous base; no tenderness or warmth to touch. Rashes: rashes noted groin Neuro General: patient oriented x3 and No confusion Psych Appearance: grossly normal Mental Status: mental status grossly normal Insight: Good insight present (Psych) Judgement: Good judgement present (Psych) Results AMB Random Glucose (hemocue) AMB Random Glucose (hemocue) 216 mg/dL Last Edit by Vita Santa CMA on 08/08/23 11:09 Results Reviewed Results Reviewed: Laboratory Last Values Random Glu (Clinic) 216 mg/dL 08/08/23 11:08 Assessment & Plan Assessment & Plan (1) Hyperglycemia due to diabetes mellitus: Comment: Hyperglycemia and its affect on Deborah eruptions is discussed with this patient tight glucose control is encouraged. Code(s): E11.65 - Type 2 diabetes mellitus with hyperglycemia Plan: Check blood glucose t.i.d. and p.r.n.. (2) Candidal dermatitis: Comment: There is no clinical evidence of a cellulitis and therefore this will be treated as a fungal infection with nystatin powder. Code(s): B37.2 - Candidiasis of skin and nail Plan: Nystatin powder t.i.d. until resolution of rash. (3) Hypoxia: Comment: Patient is in no respiratory distress however is noted to be hypoxic. Patient's hands are also noted to be cold. Patient has [facility] coming into his home 3 times weekly and they check his oxygenation at each visit. Patient denies having any fevers, chills, cough, chest pain and does not currently feel shortness of breath. Tobacco cessation is discussed with the patient and he is frustrated that nicotine patches have not previously been covered by his health insurance company. Code(s): R09.02 - Hypoxemia Plan: Tobacco cessation is encouraged and discussed with this patient. Patient will go to the emergency department directly for any subjective dyspnea. Orders: Orders AMB Random Glucose (hemocue) Today Z13.9 - Encounter for screening, unspecified Glucose, Whole Blood Today E11.9 - Type 2 diabetes mellitus without complications Medications: New nystatin 1 appl topical TID 60 grams 1RF Coding Level of Care Code Est Pt Level 4 (44401) Diagnoses Hyperglycemia due to diabetes mellitus E11.65 Candidal dermatitis B37.2 Hypoxia R09.02 Time Spent (min) 30
--- OUTSIDE RECORDS SUMMARY | 2023-08-08 10:58 | XMS_ITS | Continuity of Care Document ---
Author Organization [facility] ter Address [address] [place] [id number] Care Team Providers Care American Board Certified Orthotist Name Role Phone Isrrael FARFAN, Riky Marie Primary Care Physician Encounter [facility] Date(s): 06/05/23 - 08/07/[address] [id number] Attending Physician: Vinicius Hope MD Admitting Physician: Vinicius Hope MD Allergies, Adverse Reactions, Alerts Substance Reaction Severity Status penicillin Cyclobenzaprine dae urement Anaphylactic shock, unspecified Active Flexeril Rash Active Medications Adult Aspirin 81 mg oral tablet, chewable 1 tablet = 81 mg, Daily, 0 Refills, Maintenance, 03/19/19 7:41:00 EST Start Date: 03/19/19 Status: Ordered albuterol 0.083% inhalation solution 3 mL = 2.5 mg, Inhalation, Every 6 hours, PRN for wheezing, # 25 each, 0 Refills, Maintenance, 12/18/21 21:50:00 EDT, Solution, Partial fill upon patient request if the prescription is for a scheduleII opioid drug. Start Date: 12/18/21 Status: Ordered aspirin 325 mg oral delayed release tablet 325 mg, By Mouth, Daily, # 28 each, Refills 0, Tot. Refills 0, Maintenance, 05/04/21 15:05:00 EST, Route to Pharmacy Electronically, [facility], Partial fill upon patient request if theprescription is for a schedule II opioid drug., 120... Start Date: 05/04/21 Stop Date: 06/01/21 Status: Ordered aspirin 81 mg oral delayed release tablet 81 mg, 1, tablet, By Mouth, Daily, # 30 tablet, Refills 0, Maintenance, 12/18/21 21:53:00 EDT, Partial fill upon patient request if the prescription is for a schedule II opioid drug. Start Date: 12/18/21 Status: Ordered atorvastatin 40 mg oral tablet 1 tablet = 40 mg, By Mouth, Daily, # 30 tablet, 5 Refills, Maintenance, 12/18/21 21:49:00 EDT, Tablet, Partial fill upon patient request if the prescription is for a schedule II opioid drug. Start Date: 12/18/21 Status: Ordered atorvastatin 40 mg oral tablet 1 tablet = 40 mg, By Mouth, Daily at bedtime, 0 Refills, Maintenance, 05/04/21 15:06:00 EST, Tablet, Partial fill upon patient request if the prescription is for a schedule II opioid drug. Start Date: 05/04/21 Status: Ordered carBAMazepine 100 mg oral tablet, extended release 200 mg, 2, tablet, By Mouth, Daily at bedtime, # 120 tablet, Refills 0, Maintenance, 12/18/21 21:42:00 EDT, Partial fill upon patient request if the prescription is for a schedule II opioid drug. Start Date: 12/18/21 Status: Ordered duloxetine 60 mg oral enteric coated capsule 1 capsule = 60 mg, By Mouth, 2 times a day, # 30 capsule, 0 Refills, Maintenance, 12/18/21 21:41:00EDT, EC Capsule, Partial fill upon patient request if the prescription is for a schedule II opioid drug. Start Date: 12/18/21 Status: Ordered folic acid 1 mg oral tablet 1 mg, 1, tablet, By Mouth, Daily, # 30 tablet, Refills 0, Tot. Refills 0, Maintenance, 12/19/21 12:20:00 EDT, Route to Pharmacy Electronically, [facility], Partial fill upon patient request if the prescription is for a schedule II opioid... Start Date: 12/19/21 Stop Date: 01/18/22 Status: Ordered Lantus Inj = 30 units, Subcutaneous Injection, Daily in AM, 0 Refills, Maintenance, 12/18/21 21:40:00 EDT, Injection, Partial fill upon patient request if the prescription is for a schedule II opioid drug. Start Date: 12/18/21 Status: Ordered lisinopril 10 mg oral tablet 10 mg, 1, tablet, By Mouth, Daily, # 30 tablet, Refills 0, Maintenance, 12/18/21 21:49:00 EDT, Partial fill upon patient request if the prescription is for a schedule II opioid drug. Start Date: 12/18/21 Status: Ordered lisinopril 10 mg oral tablet 10 mg, 1, tablet, By Mouth, Daily, Refills 0, Maintenance, 05/04/21 15:06:00 EST, Partial fill uponpatient request if the prescription is for a schedule II opioid drug. Start Date: 05/04/21 Status: Ordered lisinopril 5 mg oral tablet 5 mg, 1, tablet, By Mouth, Daily, # 30 tablet, Refills 0, Maintenance, 03/19/19 7:40:00 EST Start Date: 03/19/19 Status: Ordered Lyrica 150 mg oral capsule 2 capsule = 300 mg, By Mouth, 2 times a day, 0 Refills, Maintenance, 05/04/21 15:06:00 EST, Capsule, Partial fill upon patient request if the prescription is for a schedule II opioid drug. Start Date: 05/04/21 Status: Ordered Lyrica 200 mg oral capsule 1 capsule = 200 mg, By Mouth, 3 times a day, 0 Refills, Maintenance, 12/18/21 21:42:00 EDT, Capsule, Partial fill upon patient request if the prescription is for a schedule II opioid drug. Start Date: 12/18/21 Status: Ordered Metformin = 1,000 mg, By Mouth, 2 times a day, 0 Refills, Maintenance, 03/19/19 8:39:00 EST Start Date: 03/19/19 Status: Ordered metoprolol 25 mg oral tablet, extended release 25 mg, 1, tablet, By Mouth, Daily, # 30 tablet, Refills 0, Maintenance, 12/18/21 21:49:00 EDT, Partial fill upon patient request if the prescription is for a schedule II opioid drug. Start Date: 12/18/21 Status: Ordered multivitamin Multiple Vitamins oral tablet 1 tablet, By Mouth, Daily, # 30 tablet, 0 Refills, Maintenance, 12/19/21 12:21:00 EDT, Tablet, [facility], Partial fill upon patient request if the prescription is for a schedule II opioid drug., 1 tablet By Mouth Daily,x30 days, 188, cm... Start Date: 12/19/21 Stop Date: 01/18/22 Status: Ordered oxyCODONE 5 mg oral tablet 5 mg, 1, tablet, By Mouth, Daily, PRN, Refills 0, Tot. Refills 0, Maintenance, as needed for pain, 12/18/21 21:50:00 EDT, Partial fill upon patient request if the prescription is for a schedule II opioid drug. Start Date: 12/18/21 Status: Ordered Physical Therapy Physical Therapy, See Instructions, # 1 Unknown, Refills 0, Tot. Refills 0, Maintenance, Physical Therapy, evaluate and treat/Diagnoise. Limited Mobility, Z74. 0, 12/19/21 13:07:00 EDT, Supply Start Date: 12/19/21 Status: Ordered Pregabalin = 200 mg, By Mouth, 3 times a day, 0 Refills, Maintenance, 03/19/19 7:42:00 EST Start Date: 03/19/19 Status: Ordered Pyridoxine Tablet 50 mg, By Mouth, Daily, Refills 0, Maintenance, 05/04/21 15:06:00 EST, Partial fill upon patient request if the prescription is for a schedule II opioid drug. Start Date: 05/04/21 Status: Ordered tiZANidine 4 mg oral capsule 1 capsule = 4 mg, By Mouth, 3 times a day, # 90 capsule, 0 Refills, Maintenance, 12/18/21 21:40:00 EDT, Capsule, Partial fill upon patient request if the prescription is for a schedule II opioid drug. Start Date: 12/18/21 Status: Ordered Tylenol 325 mg oral tablet 975 mg, 3, tablet, By Mouth, Every 8 hours, Refills 0, Maintenance, 05/04/21 15:05:00 EST, Partial fill upon patient request if the prescription is for a schedule II opioid drug. Start Date: 05/04/21 Status: Ordered Problem List Condition Confirmation Course Effective Dates Status Health St atus Informant Asthma Confirmed Active CAD (coronary artery disease) Confirmed Active HTN (hypertension) Confirmed Active Alcohol use disorder, moderate, dependence Confirmed Active Obese class II Confirmed Active TIA (transient ischemic attack) Confirmed Active Type 2 diabetes mellitus Confirmed Active Social History Social History Type Response Smoking Status 10 or more cigarette s (1/2 pack or more)/day in last 30 days; Interested in cessation: No entered on: 12/18/21 Sex Patient Care team information Care Team Personnel Name: Riky Arcos MD Position: [facility] Physician (General Medicine) Member Role: PCP Address: Address: [address] [place] [address] Name: Mayra Price RN Position: [facility] RN Member Role: Primary Care Nurse Name: Mago Aldrich RN Position: [facility] RN Member Role: Primary Care Nurse Name: Thuy Ramirez RN Position: [facility] Hospital Body Shop Technician Member Role: Primary Care Nurse Care Team Related Persons Name: BRENNAN COVARRUBIAS Address: home [address] [place] [id number]
[2023-08-08 10:59] VITALS: BP 128/74; PULSE 95; O2SAT 87
== END 2023-08-08 11:31 | disposition home or self-care (01) ==
PROVIDERS: PCP Nurse Practitioner Family; Visit Provider Physician Assistant
DX: E11.65 Type 2 diabetes mellitus with hyperglycemia (principal); B37.2 Candidiasis of skin and nail; R09.02 Hypoxemia
CPT/HCPCS: 82948; 99214

== ENCOUNTER 2023-09-10 11:08 | Inpatient (IN) | payer MEDICARE, SELFPAY ==
[2023-09-10] VITALS (18 sets, daily range): BP systolic 89–146; BP diastolic 58–77; PULSE 66–88; RESP 8–20; TEMP 36–36.7; O2SAT 88–97; BMI 36.4
--- NOTE | ~2023-09-10 | CT_ITS ---
EXAMINATION: CT ABDOMEN AND PELVIS WITH CONTRAST CLINICAL INFORMATION: Abdominal pain and distention. Hypoxia tachycardia and hypotension. COMPARISON: Previous CT of the abdomen and pelvis June 2023 TECHNIQUE: Multidetector volumetric images were obtained from the superior aspect of the liver through the pubic symphysis following administration 100 mL of Omnipaque 350 intravenous contrast. Sagittal and coronal reformatted images were obtained on the technologist's workstation. Oral contrast: Yes This CT examination was performed using dose optimization techniques as appropriate, variously including the following: *Automated exposure control *Adjustment of mA and/or kV according to patient size (this includes techniques or standardized protocols for targeted exams where dose is matched to indication/reason for exam; i.e. extremities or head) *Use of iterative reconstruction technique DLP: 1223 mGy-cm FINDINGS: LIVER, GALLBLADDER, AND BILIARY TREE: Enlarged fatty liver. Distended gallbladder. No gallstones seen by CT. No focal liver lesion or biliary duct dilatation. Small amount of ascites. Varices. Patent main right and left portal veins. PANCREAS: 2.2 x 3 cm cyst in the body of the pancreas, new. Smaller 1 cm cyst adjacent to the head of the pancreas, new. This may represent pseudocysts from previous pancreatitis. No air seen to suggest abscess. No evidence of acute pancreatitis. No pancreatic duct dilatation. SPLEEN: Unremarkable. ADRENAL GLANDS: Unremarkable. KIDNEYS AND URETERS: The kidneys are normal in size, shape, and attenuation. No hydronephrosis, hydroureter, or calculi seen. Left renal cyst. No imaging follow-up recommended. No perinephric stranding. BLADDER: Not optimally distended. Difficult to exclude mild diffuse bladder wall thickening. GASTROINTESTINAL TRACT: Diffuse wall thickening and edema of the colon suggestive of pancolitis. Small bowel unremarkable. Stomach not optimally distended and difficult to evaluate. Appendix not seen. ABDOMINAL WALL: Evidence of previous ventral hernia repair with mesh. No hernia or fluid collection. LYMPH NODES: Normal. VASCULAR: Atherosclerotic disease. No aneurysm. Patent portal and hepatic vessels. Varices. PELVIC VISCERA: Unremarkable. OSSEOUS STRUCTURES: Posterior fusion hardware from L3 to S1. Degenerative changes of the spine. Old bilateral rib fractures. CT/CT abdomen pelvis w IV con IMPRESSION: Enlarged fatty liver. Distended gallbladder. No gallstones seen by CT. Small amount of ascites. New pancreatic cysts. These may represent pseudocysts from prior pancreatitis. No evidence of acute pancreatitis. Diffuse wall thickening and edema of the colon suggestive of pancolitis. Fleischner guidelines were followed.
--- NOTE | ~2023-09-10 | CT_ITS ---
EXAMINATION: CT ANGIOGRAM OF THE CHEST WITH AND WITHOUT CONTRAST (CT PULMONARY ANGIOGRAM FOR PE) CLINICAL INFORMATION: Reason for Exam hypoxia, tachy, hypotensive COMPARISON: Chest x-ray from earlier the same day and chest CT January 2023 TECHNIQUE: Prior to contrast administration, noncontrast localization images were obtained. Subsequently, multidetector volumetric imaging was performed from the thoracic inlet to below the diaphragms following the administration of 100 mL Omnipaque 350 intravenous contrast. No contrast reaction reported Sagittal, coronal, and MIP oblique sagittal reformatted images were obtained on the CT workstation, uploaded to PACS, and reviewed. This CT examination was performed using dose optimization techniques as appropriate, variously including the following: *Automated exposure control *Adjustment of mA and/or kV according to patient size (this includes techniques or standardized protocols for targeted exams where dose is matched to indication/reason for exam; i.e. extremities or head) *Use of iterative reconstruction technique Total exam dose-length product 594 mGy-cm FINDINGS: QUALITY OF STUDY/CONTRAST BOLUS: Satisfactory. Than limited due to motion artifact. PULMONARY ARTERIES: No evidence of large or central pulmonary embolism. Evaluation of smaller segmental and subsegmental pulmonary arteries are somewhat limited, particularly at the right lung base. THORACIC AORTA: Evaluation of the [place]ox[place] thoracic aorta limited due to respiratory motion artifact. No aneurysm. LUNG: Elevation or eventration of the right hemidiaphragm. There is subsegmental atelectasis or small infiltrate of the adjacent right middle and right lower lobes. This is increased from [address] Lungs are otherwise clear. PLEURA: No pleural effusion or pneumothorax. MEDIASTINUM: Normal heart size. No pericardial effusion. No hilar or mediastinal lymphadenopathy. No evidence of septal bowing or right heart strain. CORONARY ARTERY CALCIFICATION: SM, mild CHEST WALL/AXILLA: No axillary or internal mammary lymphadenopathy. OSSEOUS STRUCTURES: Degenerative changes of the spine. Old left lower rib fractures. UPPER ABDOMEN:No reflux of contrast into the hepatic veins to suggest elevated right heart pressures. CT/CT angio chest PE protocol IMPRESSION: Limited exam due to motion artifact. No evidence of large or central pulmonary embolism. Evaluation of smaller segmental and subsegmental pulmonary arteries limited, particularly at the right lung base. Elevated eventrated right hemidiaphragm and adjacent atelectasis or small infiltrate of the right middle and right lower lobes increased from previous exam. VTE:
--- NOTE | ~2023-09-10 | XR_ITS ---
EXAMINATION: XR CHEST CLINICAL INFORMATION: Hypoxia COMPARISON: Previous chest x-ray most recent 09/10/2023 TECHNIQUE: Frontal view of the chest was obtained. FINDINGS: Elevated right hemidiaphragm. The cardiac and mediastinal contours are stable. Increased central bronchovascular markings. Subsegmental atelectasis or small infiltrate at the right medial lung base. No pleural effusion or pneumothorax. XR/XR chest 1V IMPRESSION: Elevated right hemidiaphragm and atelectasis or small infiltrate at the right lung base. Increased central bronchovascular markings. Differential would include airways disease and mild pulmonary edema.
--- NOTE | ~2023-09-10 | CT_ITS ---
EXAMINATION: CT HEAD WITHOUT CONTRAST CLINICAL INFORMATION: Altered mental status COMPARISON: CT scan of brain on 07/05/2023 TECHNIQUE: Contiguous axial imaging was performed from the skull base to vertex without intravenous administration of contrast. This CT examination was performed using dose optimization techniques as appropriate, variously including the following: *Automated exposure control *Adjustment of mA and/or kV according to patient size (this includes techniques or standardized protocols for targeted exams where dose is matched to indication/reason for exam; i.e. extremities or head) *Use of iterative reconstruction technique DLP: 756 mGy-cm FINDINGS: Ventricles, sulci and cisterns are normal. There is no midline shift, no abnormal intra- or extra- axial fluid accumulation. Corbett and white matter differentiation is normal. Bone window images show no evidence of skull fracture. Chronic left medial orbital wall fracture with protrusion of orbital fat into the left ethmoid sinus is seen. The right mastoid process is asymmetrically sclerotic. CT/CT head/brain wo IV con IMPRESSION: 1. Unchanged age related cerebral atrophy and ventriculomegaly. 2. No intracranial hemorrhage or skull fracture is seen. 3. No evidence of space occupying lesion could be found. 4. The current plain CT scan of the brain shows no diagnostic evidence of acute cerebral infarction. 5. Unchanged chronic medial left orbital wall fracture with protrusion of orbital fat into left ethmoid sinus. 6. Unchanged asymmetric sclerotic right mastoid process.
--- NOTE | ~2023-09-10 | US_ITS ---
EXAMINATION: US GUIDED PARACENTESIS CLINICAL INFORMATION: Ascites COMPARISON: CT abdomen and pelvis 09/10/2023. TECHNIQUE/FINDINGS: Informed consent was obtained following a discussion of the risks and benefits of the procedure with the patient's daughter via telephone. Procedure was performed at bedside in the emergency department due to respiratory issues. Preliminary ultrasound demonstrates mild ascites in concordance with recent cross-sectional imaging. A site on the right lower quadrant was marked and sterilely prepped and draped. 1% lidocaine was administered for local anesthesia. The ascites was accessed with a 4 [place] Plum Babyesis catheter. Serous fluid was encountered. Fluid was sent for requested labs. The catheter was removed and hemostasis was achieved with manual compression. A dressing was applied. The patient tolerated the procedure well immediate complications. US/US paracentesis abd w/image IMPRESSION: Ultrasound-guided paracentesis
--- NOTE | ~2023-09-10 | XR_ITS ---
EXAMINATION: XR CHEST CLINICAL INFORMATION: Shortness of breath. COMPARISON: 07/06/2023. TECHNIQUE: AP upright portable view of the chest was obtained. FINDINGS: Elevation of the right hemidiaphragm is unchanged. Linear subsegmental atelectasis is present within the lower lobes bilaterally and the right middle lobe. No effusion or pneumothorax. Cardiomediastinal silhouette is likely within normal limits given patient rotation. No acute osseous findings. Degenerative spondylosis in the thoracic spine. XR/XR chest 1V IMPRESSION: Subsegmental atelectasis in the lower lobes and right middle lobe. No acute pulmonary findings.
--- NOTE | 2023-09-10 11:11 | ECG_ITS ---
Test Reason : SOB Blood Pressure : / mmHG Vent. Rate : 081 BPM Atrial Rate : 081 BPM P-R Int : 196 ms QRS Dur : 112 ms QT Int : 460 ms P-R-T Axes : 021 068 054 degrees QTc Int : 534 ms Normal sinus rhythm Nonspecific ST and T wave abnormality Abnormal ECG When compared with ECG of 05-JUL-2023 20:02, QT has lengthened Referred By: Hanna Umanzor Electronically Signed By:PILAR ASH
--- NOTE | 2023-09-10 11:19 | ED_ITS ---
HPI - General Adult General Chief complaint: Dyspnea Stated complaint: DIFF BREATHING,IN/OUT OF CONS,ON CPAP PER EMS Time Seen by Provider: 09/10/23 11:09 Source: patient Mode of arrival: ambulatory Limitations: no limitations History of Present Illness ED Provider: Rehan LIND HPI narrative: This is a 57-year-old male history of acute hypoxic respiratory failure liver cirrhosis, hepatitis-C, hypertension, TIA, seizure disorder, diabetes, COPD, CHF, ethanol abuse presents to the emergency department difficulty breathing since this morning, he was noted to be labored when his visiting nurse arrived. He reports he is feeling fine yesterday. According to EMS he was found with labored breathing and saturating 88% on room air while in the ambulance he became ?unresponsive ?for a moment, initially they had him on CPAP however after he became unresponsive they started bagging him. Patient states he just feels short of breath. He denies fevers, chills, chest pain, nausea, vomiting, abdominal pain, vision changes, dizziness, changes in urinary or bowel habits. Related Data Home Medications ?Medication ?Instructions ?Recorded ?Confirmed aspirin 81 mg tablet,delayed 81 mg PO DAILY 03/17/22 07/06/23 release duloxetine 30 mg capsule,delayed 1 cap PO BID 03/17/22 07/06/23 release multivitamin 1 tab PO DAILY 03/17/22 07/06/23 carbamazepine 200 mg tablet 200 mg PO BID 12/04/22 07/06/23 pregabalin 200 mg capsule 200 mg PO TID 12/04/22 07/06/23 albuterol sulfate 90 mcg/actuation 2 puff inhalation Q6H PRN 06/07/23 07/06/23 aerosol inhaler shortness of breath or wheezing latanoprost 0.005 % eye drops 1 drp ophthalmic (eye) BEDTIME 06/07/23 07/06/23 Previous Rx's ?Medication ?Instructions ?Recorded Accu-Chek Guide Me Glucose Mtr #1 ea 06/11/22 (blood-glucose meter) lancets 30 gauge (BD Ultra-Fine II #100 ea 06/11/22 Lancets) pen needle, diabetic 31 gauge x #100 ea 03/05/23 3/16 (BD Ultra-Fine Mini Pen Needle) folic acid 1 mg tablet 1 mg PO DAILY #90 tabs 03/15/23 atorvastatin 40 mg tablet 40 mg PO DAILY #90 tabs 03/27/23 brimonidine 0.2 % eye drops 1 drp ophthalmic-Left TID #5 mL 05/26/23 metoprolol succinate 50 mg 100 mg (2 x 50 mg) PO DAILY #180 06/10/23 tablet,extended release 24 hr tabs potassium chloride 20 mEq 20 meq PO DAILY #7 tabs 07/13/23 tablet,extended release vancomycin 125 mg capsule 125 mg PO QID #40 caps 07/14/23 insulin glargine 100 unit/mL (3 30 unit (0.3 mL) subcut DAILY #30 07/18/23 mL) subcutaneous pen (Lantus mL Solostar U-100 Insulin) Accu-Chek Guide test strips (blood #300 ea 07/20/23 sugar diagnostic) loperamide 2 mg capsule 2 mg PO Q6H PRN Diarrhea #30 caps 07/26/23 nicotine 14 mg/24 hr daily 14 mg transdermal DAILY #28 ea 07/26/23 transdermal patch thiamine HCl (vitamin B1) 100 mg 100 mg PO DAILY #90 tabs 07/26/23 tablet nystatin 100,000 unit/gram topical 1 appl topical TID #60 grams 08/08/23 powder furosemide 20 mg tablet 20 mg PO BID 30 days #60 tabs 08/19/23 Allergies Allergy/AdvReac Type Severity Reaction Status Date / Time cyclobenzaprine Allergy Unknown RASH Verified 09/10/23 11:17 [From FLEXERIL] penicillin V Allergy Unknown anaphylaxis Verified 09/10/23 11:17 pineapple Allergy Unknown Unknown Verified 09/10/23 11:17 FADIA Inhibitors AdvReac Severe Angioedema Verified 09/10/23 11:17 Review of Systems 2 Review of Systems: Yes all other systems are reviewed and are negative [facility] Past Medical History Attestation statement: The following information was validated with the patient. Source: old records reviewed and nursing notes reviewed Medical History Thrombocytopenia Pneumonia COPD (chronic obstructive pulmonary disease) Diabetes Nicotine dependence, cigarettes, uncomplicated Tracheostomy care Respiratory failure Diastolic CHF Seizure disorder History of TIA (transient ischemic attack) History of hepatitis C CAD (coronary artery disease) HTN (hypertension) Insulin dependent type 2 diabetes mellitus Diabetic neuropathy Restrictive airway disease KD (obstructive sleep apnea) ETOH abuse Morbid obesity Transaminitis Fatty liver History of colon polyps Obesity Microalbuminuria Foot ulcer, left Fracture of right tibia and fibula Metatarsal bone fracture Surgical History History of surgery on lower extremity (~2019) History of lumbar spinal fusion History of colonoscopy (~2018) History of hernia repair History of cardiac catheterization (~2018) Family History Family History Father CVD (cardiovascular disease) Colon cancer Mother No problems noted. Brother Liver cancer Paternal Aunt Colon cancer Social History Social History Household Members: Spouse Household Members Other:: Housing: House Do you presently have visiting nurse or other home services: No Unable to assess alcohol history related to: Unable to respond Alcohol intake: current Alcohol intake frequency: 3 or more drinks per day Alcohol type: beer and hard liquor Patient Tobacco Use Status: Current everyday Tobacco user Tobacco use type: Cigarette Years Smoked: onset 18yo, 1-2ppd x 37yrsm now 1/2ppd - 50pyh Smoked in Last 30 Days: Yes Second Hand Smoke Exposure: Yes Use of substances other than those prescribed or required for medical reasons: No Substance Use Type: Marijuana Advance Directives: Yes Advance Directives on File: Yes Advance Directives Date on File: 03/20/22 Do you have a plan to hurt others: No Plan service: No Current occupational status: disabled Current occupation: right handed Cognitive needs: No Hearing needs: No Vision needs: No Physical Exam ED Vital Signs: Vital Signs - 24 hr 09/10/23 11:13 09/10/23 11:55 09/10/23 13:43 Temperature 98 F Pulse Rate 85 79 Respiratory Rate 14 12 12 Blood Pressure 92/62 89/59 L Pulse Oximetry 93 93 Oxygen Delivery Method Oxymask Oxymask Oxygen Flow Rate 10 09/10/23 14:12 09/10/23 14:12 09/10/23 14:20 Temperature Pulse Rate 85 88 Respiratory Rate 18 17 18 Blood Pressure 112/64 116/67 Pulse Oximetry 90 L 88 L Oxygen Delivery Method High Flow Nasal Cannula High Flow Nasal Cannula Oxygen Flow Rate 14 14 BMI result Body Mass Index 36.4 Pressure soft. Patient appears to be in fluid overload will hold on fluids. Appearance: Alert.? Oriented to person and place not time or situation.? Patient unwell appearing, unkempt. Head: Normocephalic, atraumatic, no step-offs or deformities Eyes: Pupils equal, round and reactive to light.? ENT: Pharynx normal.? Neck: Normal inspection.? Neck supple.? CVS: Normal heart rate and rhythm.? Pulses normal.? Respiratory: + mild respiratory distress.? Breath sounds bilateral expiratory wheezing and crackles..? Abdomen: Soft and nontender.? Abdomen is distended with normoactive bowel sounds. Skin: Skin warm and dry.? Normal skin color.? Normal skin turgor.? Extremities: 2+ non pitting edema b/l.? No calf ttp. Global weakness Back: No midline tenderness, no C-spine tenderness, full range of motion, no CVA tenderness bilaterally Neuro: Oriented to person and place not time or situation.? No motor deficit.? No sensory deficit. CN 2-12 intact Course Reevaluation(s) Reevaluation #1: Patient has crackles at this time infection suspected, elevated lactic acid at 3.0, will not give 30 cc/kilos fluid bolus as patient appears to be in overt fluid overload. Will give Levaquin and Flagyl for suspected infection patient has a anaphylactic reaction to penicillins anything ceftriaxone. Time: 11:46 Reevaluation #2: CBC with no leukocytosis, a microcytic anemia is noted appears to be around patient's baseline. Again lactic acid elevated at 3.0. Remainder of chemistry pending. Time: 11:47 Reevaluation #3: Chemistry results it with a potassium critically low 2.0 IV and p.o. potassium ordered. Patient noted to have an elevated anion gap, unclear etiology at this time however infection suspected could be secondary to infection. Patient's creatinine slightly elevated however it appears as though this is around patient's baseline. Patient's magnesium 1.2 IV Mag also ordered. Patient does have an elevated bilirubin of 5.1 and transaminases elevated AST 169, ALT 46. Ammonia 156. I am concerned for hepatic encephalopathy at this time. Albumin also ordered Time: 12:15 Additional Reevaluation(s): Discussed this case with ICU Dr. Gonzalez recommends HFNC and re-evaluation. 1332 who has at the bedside now admits that patient is an alcoholic he typically drinks once leave of hard liquor a day. Last drink was sometime last night. He has gone into alcohol withdrawal in the past. At this time I also suspect alcohol withdrawal in conjunction to everything else that is going on. 1404 Due to the abnormal labs dedicated right upper quadrant ultrasound ordered to rule out Budd-Chiari or obstructing clot to the hepatic veins. US guided paracentesis also ordered 1425 ICU evaluated patient does not feel as though patient requires ICU level of care. States that they spoke to the hospitalist Dr. Barrios who will admit patient. Medications Administered Generic Name Dose Route Start Last Admin Trade Name Freq PRN Reason Stop Dose Admin Potassium Chloride 10 meq in 100 mls @ 100 mls/hr 09/10/23 12:30 09/10/23 13:38 Potassium Chloride/H20 IV 09/10/23 16:29 100 mls/hr Q1H JAMEEL Administration Albumin Human 100 mls @ 100 mls/hr 09/10/23 12:45 09/10/23 14:08 Kedbumin 25 % IV 09/10/23 16:44 100 mls/hr Q1H JAMEEL Administration Discontinued Medications Generic Name Dose Route Start Last Admin Trade Name Freq PRN Reason Stop Dose Admin Levofloxacin 500 mg in 100 mls @ 100 mls/hr 09/10/23 11:44 09/10/23 13:32 Levaquin IV 09/10/23 12:43 Infused ONCE ONE Infusion Metronidazole 500 mg in 100 mls @ 100 mls/hr 09/10/23 11:44 09/10/23 13:00 Flagyl IV 09/10/23 12:43 100 mls/hr ONCE ONE Infusion Magnesium Sulfate 2 gm in 50 mls @ 25 mls/hr 09/10/23 11:48 09/10/23 12:20 Magnesium Sulfate/H2o IV 09/10/23 13:47 Infused ONCE ONE Infusion Sodium Chloride 500 mls @ 500 mls/hr 09/10/23 12:00 09/10/23 13:18 Ns IV 09/10/23 12:59 Infused .Q1H JAMEEL Infusion Sodium Chloride 500 mls @ 500 mls/hr 09/10/23 12:15 09/10/23 13:18 Ns IV 09/10/23 13:14 500 mls/hr .Q1H JAMEEL Administration Iohexol 100 ml 09/10/23 12:59 09/10/23 12:59 Iohexol 350 Mg/Ml 100 Ml Infus..Btl IV 09/10/23 13:00 100 ml ONCE ONE Administration Lactulose 20 gm 09/10/23 12:29 09/10/23 13:32 Lactulose 20 Gm/30 Ml Solution PO 09/10/23 12:30 20 gm ONCE ONE Administration Methylprednisolone Sodium Succinate 125 mg 09/10/23 11:48 09/10/23 12:03 Methylprednisolone Sod Succ 125 Mg/2 Ml Vial IVPUSH 09/10/23 11:49 125 mg ONCE ONE Administration Midodrine 5 mg 09/10/23 13:23 09/10/23 14:07 Midodrine Hcl 5 Mg Tablet PO 09/10/23 13:24 5 mg ONCE ONE Administration Potassium Chloride 40 meq 09/10/23 12:25 09/10/23 13:32 Potassium Chloride Packet 20 Meq Packet PO 09/10/23 12:26 40 meq ONCE ONE Administration Medical Decision Making Medical Decision Making [facility] Narrative: 57 year old male presents w/ sob X 1 day PE w/ mild respiratory distress.? Breath sounds bilateral expiratory wheezing and crackles. History and physical exam concerning for CHF versus pneumonia versus chronic lung disease versus asthma. Unlikely PE, ACS. Patient does appear to be in mild respiratory distress. He is mentating well. Abdomen distended this is his baseline however nontender unlikely SBP. I will rule out UTI and electrolyte abnormalities. Plan at this time labs, imaging, urine. Differential Diagnosis Differential Diagnoses: The differential diagnosis associated with the presentation includes History and physical exam concerning for CHF versus pneumonia versus chronic lung disease versus asthma. Unlikely PE, ACS. Patient does appear to be in mild respiratory distress. He is mentating well. Abdomen distended this is his baseline however nontender unlikely SBP. I will rule out UTI and electrolyte abnormalities. Admission/Observation Consideration of admission/observation: Escalation of care including admission/observation considered likely Consult Healthcare Provider Management of the patient was discussed with: Social Services Manager (ICU ) Lab Data [facility] Lab Attestation statement: I reviewed the patient's lab results. 09/10/23 11:24 09/10/23 11:51 Labs: Lab Results 09/10/23 09/10/23 09/10/23 Range/Units 11:12 11:24 11:28 WBC 7.3 (4.8-10.8) X10*3/uL RBC 3.53 L (4.60-5.80) X10*6/uL Hgb 13.8 L (14.0-18.0) g/dl Hct 39.7 L (42.0-52.0) % MCV 112.5 H (80.0-98.0) fL MCH 39.1 H (27.0-33.0) pg MCHC 34.8 (31.0-36.0) g/dl RDW 18.5 H (11.0-16.0) % Plt Count 87 L (160-400) X10*3/uL MPV 12.0 (9.4-12.4) fL Immature Gran % (Auto) 0.5 H (0.0-0.4) % Neut % (Auto) 70.7 (45-73) % Lymph % (Auto) 14.2 L (20-40) % [place] % (Auto) 13.1 H (2-11) % Eos % (Auto) 0.7 (0-4) % Baso % (Auto) 0.8 (0-2) % Lymph # (Auto) 1.0 L (1.2-4.9) X10*3/uL [place] # (Auto) 1.0 (0.1-1.2) X10*3/uL Eos # (Auto) 0.1 (0.0-0.4) X10*3/uL Baso # (Auto) 0.1 (0.0-0.2) X10*3/uL Abs Immat Gran (auto) 0.04 H (0.00-0.03) X10*3/uL Absolute Neuts (auto) 5.2 (2.0-8.3) x10*3/uL Absolute Nucleated RBC 0.060 H (0.0-0.012) X10*3/uL Nucleated RBC % (auto) 0.8 H (0.0-0.2) /100WBC PT 14.7 H (11.1-13.3) SEC INR 1.2 H (0.9-1.1) VBG pH 7.45 H (7.32-7.43) VBG pCO2 43 mmHg VBG pO2 79 mmHg VBG HCO3 30 H (22-26) mmol/L VBG O2 Saturation 94.0 % VBG Base Excess 6.1 mmol/L Sodium (135-145) mmol/L Potassium (3.3-5.1) mmol/L Chloride (96-108) mmol/L Carbon Dioxide (22-29) mmol/L Anion Gap (12-20) BUN (9-16) mg/dL Creatinine (0.5-1.4) mg/dL Estim Creat Clear Calc Estimated GFR POC Glucose 128 H (60-115) mg/dL Random Glucose (60-115) mg/dL Lactic Acid 3.0 H* (0.5-2.0) mmol/L Calcium (8.4-10.2) mg/dL Magnesium (1.6-2.6) mg/dL Total Bilirubin (0.0-1.0) mg/dL AST (5-37) U/L ALT (0-40) U/L Alkaline Phosphatase (39-117) U/L Ammonia (13-55) umol/L Troponin I High Sens 16.7 (<3.5-35.0) ng/L B-Natriuretic Peptide 84 (<100) pg/mL Total Protein (6.5-8.0) g/dL Albumin (3.5-5.0) g/dL Urine Color Urine Appearance Urine pH (5.0-9.0) Ur Specific [place] (1.005-1.025) Urine Protein (Neg-Trace) mg/dL Urine Glucose (UA) (Negative) mg/dL Urine Ketones (Negative) mg/dL Urine Blood (Negative) Urine Nitrite (Negative) Ur Leukocyte Esterase (Negative) Urine Opiates Screen (Not Detect) Ur Buprenorphine Scrn (Not Detect) ng/mL Ur Oxycodone Screen (Not Detect) ng/mL Urine Methadone Screen (Not Detect) ng/mL Urine Fentanyl Screen (Not Detect) Ur Barbiturates Screen (Not Detect) Ur Phencyclidine Scrn (Not Detect) Ur Amphetamines Screen (Not Detect) U Benzodiazepines Scrn (Not Detect) Urine Cocaine Screen (Not Detect) U Marijuana (THC) Screen (Not Detect) Ethyl Alcohol mg/dL 09/10/23 09/10/23 Range/Units 11:45 11:51 WBC (4.8-10.8) X10*3/uL RBC (4.60-5.80) X10*6/uL Hgb (14.0-18.0) g/dl Hct (42.0-52.0) % MCV (80.0-98.0) fL MCH (27.0-33.0) pg MCHC (31.0-36.0) g/dl RDW (11.0-16.0) % Plt Count (160-400) X10*3/uL MPV (9.4-12.4) fL Immature Gran % (Auto) (0.0-0.4) % Neut % (Auto) (45-73) % Lymph % (Auto) (20-40) % [place] % (Auto) (2-11) % Eos % (Auto) (0-4) % Baso % (Auto) (0-2) % Lymph # (Auto) (1.2-4.9) X10*3/uL [place] # (Auto) (0.1-1.2) X10*3/uL Eos # (Auto) (0.0-0.4) X10*3/uL Baso # (Auto) (0.0-0.2) X10*3/uL Abs Immat Gran (auto) (0.00-0.03) X10*3/uL Absolute Neuts (auto) (2.0-8.3) x10*3/uL Absolute Nucleated RBC (0.0-0.012) X10*3/uL Nucleated RBC % (auto) (0.0-0.2) /100WBC PT (11.1-13.3) SEC INR (0.9-1.1) VBG pH (7.32-7.43) VBG pCO2 mmHg VBG pO2 mmHg VBG HCO3 (22-26) mmol/L VBG O2 Saturation % VBG Base Excess mmol/L Sodium 138 (135-145) mmol/L Potassium 2.0 L* D (3.3-5.1) mmol/L Chloride 89 L (96-108) mmol/L Carbon Dioxide 29 (22-29) mmol/L Anion Gap 22 H (12-20) BUN 13 (9-16) mg/dL Creatinine 1.43 H (0.5-1.4) mg/dL Estim Creat Clear Calc 74.8 Estimated GFR 51 POC Glucose (60-115) mg/dL Random Glucose 118 H (60-115) mg/dL Lactic Acid (0.5-2.0) mmol/L Calcium 7.8 L D (8.4-10.2) mg/dL Magnesium 1.2 L* (1.6-2.6) mg/dL Total Bilirubin 5.1 H (0.0-1.0) mg/dL AST 169 H (5-37) U/L ALT 46 H (0-40) U/L Alkaline Phosphatase 214 H (39-117) U/L Ammonia 156 H (13-55) umol/L Troponin I High Sens (<3.5-35.0) ng/L B-Natriuretic Peptide (<100) pg/mL Total Protein 6.3 L (6.5-8.0) g/dL Albumin 2.6 L (3.5-5.0) g/dL Urine Color Dark Yellow Urine Appearance Clear Urine pH 5.5 (5.0-9.0) Ur Specific [place] 1.010 (1.005-1.025) Urine Protein Negative (Neg-Trace) mg/dL Urine Glucose (UA) Negative (Negative) mg/dL Urine Ketones Trace (Negative) mg/dL Urine Blood Negative (Negative) Urine Nitrite Negative (Negative) Ur Leukocyte Esterase Negative (Negative) Urine Opiates Screen Not Detected (Not Detect) Ur Buprenorphine Scrn Not Detected (Not Detect) ng/mL Ur Oxycodone Screen Not Detected (Not Detect) ng/mL Urine Methadone Screen Not Detected (Not Detect) ng/mL Urine Fentanyl Screen Not Detected (Not Detect) Ur Barbiturates Screen Not Detected (Not Detect) Ur Phencyclidine Scrn Not Detected (Not Detect) Ur Amphetamines Screen Not Detected (Not Detect) U Benzodiazepines Scrn Not Detected (Not Detect) Urine Cocaine Screen Not Detected (Not Detect) U Marijuana (THC) Screen Not Detected (Not Detect) Ethyl Alcohol < 10 mg/dL Independent Interpretation I performed an independent interpretation of an: CT Scan Radiology Impression Discussion of test interpretation with radiology: I have reviewed the radiologist's reading. External Record Review External record reviewed: Inpatient record, Office record, Outpatient record, Prior outpatient labs, Prior outpatient radiology, Primary care record, Outside ED record and Other Chronic Conditions Patient?s care impacted by: Other (acute hypoxic respiratory failure liver cirrhosis, hepatitis-C, hypertension, TIA, seizure disorder, diabetes, COPD, CHF, ethanol abuse ) Social Determinants Patient?s care significantly limited by Social Determinants of Health including: Inadequate housing, Low income, Alcoholism and drug addiction in family, Problems related to primary support group, Unemployment, Problems related to employment and Other Social Determinant of Health Critical Care Time Critical Care Time Critical Care Time: Yes Total Critical Care Time: 45 Attestation: I attest to this time spent taking care of the patient, obtaining history, physical, reviewing labs, imaging, speaking to my attending, specialist or hospitalist. Discharge Plan Discharge Clinical Impression: Acute hypoxemic respiratory failure, Acute hepatic encephalopathy, Acute hypokalemia, Hypomagnesemia, Ascites, Transaminitis, Alcohol withdrawal syndrome Patient Disposition: Admitted As Inpatient Prescriptions: No Action (DME) lancets [BD Ultra-Fine II Lancets] 30 gauge misc See Rx Instructions .Route Qty: 100 0RF Rx Instructions: TID (DME) blood-glucose meter [Accu-Chek Guide Me Glucose Mtr] Misc See Rx Instructions .Route Qty: 1 0RF Rx Instructions: TID testing (DME) pen needle, diabetic [BD Ultra-Fine Mini Pen Needle] 31 gauge x 3/16 needle See Rx Instructions .Route Qty: 100 1RF Rx Instructions: Use to inject insulin once per day folic acid 1 mg tablet 1 mg PO DAILY Qty: 90 1RF atorvastatin 40 mg tablet 40 mg PO DAILY Qty: 90 3RF metoprolol succinate 50 mg tablet extended release 24 hr 100 mg PO DAILY Qty: 180 0RF Rx Instructions: OVERDUE FOR APPT. PLEASE CALL [phone] TO SCHEDULE PPT SO WE CAN CONTINUE REFILLING YOUR MEDICATIONS. insulin glargine [Lantus Solostar U-100 Insulin] 100 unit/mL (3 mL) insulin pen 30 unit subcut DAILY Qty: 30 0RF (DME) Accu-Chek Guide test strips Strip See Rx Instructions .Route Qty: 300 1RF Rx Instructions: tid testing loperamide 2 mg capsule 2 mg PO Q6H PRN (Reason: Diarrhea) Qty: 30 0RF nicotine 14 mg/24 hr patch 24 hour 14 mg transdermal DAILY Qty: 28 2RF thiamine HCl (vitamin B1) 100 mg tablet 100 mg PO DAILY Qty: 90 0RF furosemide 20 mg tablet 20 mg PO BID 30 Days Qty: 60 1RF multivitamin Tablet 1 tab PO DAILY duloxetine 30 mg capsule,delayed release(DR/EC) 1 cap PO BID aspirin 81 mg Tablet,Delayed Release (Dr/Ec) 81 mg PO DAILY carbamazepine 200 mg tablet 200 mg PO BID pregabalin 200 mg Capsule 200 mg PO TID brimonidine 0.2 % drops 1 drp ophthalmic-Left TID Qty: 5 0RF Rx Instructions: administer approximately 8 hours apart latanoprost 0.005 % drops 1 drp ophthalmic (eye) BEDTIME albuterol sulfate 90 mcg/actuation HFA aerosol inhaler 2 puff inhalation Q6H PRN (Reason: shortness of breath or wheezing) potassium chloride 20 mEq tablet extended release 20 meq PO DAILY Qty: 7 0RF vancomycin 125 mg capsule 125 mg PO QID Qty: 40 0RF nystatin 100,000 unit/gram powder 1 appl topical TID Qty: 60 1RF Print Language: Romanian
--- NOTE | 2023-09-10 11:26 | PC.RT ---
Pt brought into ED by EMS, EMS bagging pt and stated pt is unresponsive. Upon moving pt over to hospital bed, pt was conscious and responding to questions with hesitation and minor confusion. RT placed pt on an NC and switched to oxymask and titrated to needs. Pt on 8L oxymask SATs 93%, ETCO2 reading 30 on monitor, respirations 12, with crackles noted in bases. PA aware. RN and Techs to draw labs and will reassess pt based on VBG results.
[2023-09-10 11:32] LABS: MANUAL DIFF FLAG NO
[2023-09-10 11:33] LABS: Glucose, Whole Blood 128 mg/dL (60-115)
[2023-09-10 11:34] LABS: Hematocrit 39.7 % (42.0-52.0); Hemoglobin 13.8 g/dl (14.0-18.0); Red Blood Count 3.53 X10*6/uL (4.60-5.80); White Blood Count 7.3 X10*3/uL (4.8-10.8)
[2023-09-10 11:35] LABS: VBG Base Excess 6.1 mmol/L; VBG HCO3 30 mmol/L (22-26); VBG pCO2 43 mmHg; VBG pH 7.45 (7.32-7.43); VBG pO2 79 mmHg
[2023-09-10 11:35] LABS: Basophils Absolute Auto 0.1 X10*3/uL (0.0-0.2); Basophils Percent Auto 0.8 % (0-2); Eosinophils Absolute Auto 0.1 X10*3/uL (0.0-0.4); Eosinophils Percent Auto 0.7 % (0-4); Imm Gran Abs Auto 0.04 X10*3/uL (0.00-0.03); Imm Gran Pct Auto 0.5 % (0.0-0.4); Lymphocytes Percent Auto 14.2 % (20-40); Mean Corpuscular HGB Conc 34.8 g/dl (31.0-36.0); Mean Corpuscular Hemoglobin 39.1 pg (27.0-33.0); Monocytes Percent Auto 13.1 % (2-11); NRBC Pct Auto 0.8 /100WBC (0.0-0.2); Neutrophils Absolute Auto 5.2 x10*3/uL (2.0-8.3); Neutrophils Percent Auto 70.7 % (45-73); Red Cell Distribution Width 18.5 % (11.0-16.0)
[2023-09-10 11:40] LABS: INTERNATIONAL NORM RATIO 1.2 (0.9-1.1); Mean Corpuscular Volume 112.5 fL (80.0-98.0); Prothrombin Time 14.7 SEC (11.1-13.3)
[2023-09-10 11:47] LABS: Venous Blood Gas Refer to POC result
[2023-09-10 11:49] LABS: Platelet Count 87 X10*3/uL (160-400)
[2023-09-10 11:53] LABS: B Type Natriuretic Peptide 84 pg/mL (<100)
[2023-09-10 11:53] LABS: Appearance Urine Clear; Color Urine Dark Yellow; Glucose Urine UA Negative (Negative); Leukocyte Esterase Urine Negative (Negative); Nitrite Urine Negative (Negative); PH 5.5 (5.0-9.0); Urine Blood Negative (Negative); Urine Ketones Trace mg/dL (Negative); Urine Protein Negative (Neg-Trace)
[2023-09-10 11:54] LABS: Troponin-I High Sensitivity 16.7 ng/L (<3.5-35.0)
[2023-09-10] MEDS: Magnesium Sulfate/H2O 2 GM/50 ML PIGGYBACK IV (12:03)
[2023-09-10] MEDS: methylPREDNISolone Sod Succ 125 MG/2 ML VIAL IVPUSH (12:03)
[2023-09-10 12:06] LABS: Ammonia 156 umol/L (13-55)
[2023-09-10] MEDS: levoFLOXacin/D5W 500 MG/100 ML PIGGYBACK 100 MG IV (12:08)
[2023-09-10 12:16] LABS: Amphetamine Screen Urine Not Detected (Not Detect); Barbiturates, Urine Not Detected (Not Detect); Benzodiazepines Screen Urine Not Detected (Not Detect); Buprenorphine Scr Not Detected (Not Detect); Cannabinoid Screen Urine Not Detected (Not Detect); Cocaine Screen Urine Not Detected (Not Detect); Fentanyl, urine Not Detected (Not Detect); Methadone Screen, Urine Not Detected (Not Detect); Opiate Screen Urine Not Detected (Not Detect); Oxycodone Screen Urine Not Detected (Not Detect); Phencyclidine Screen Urine Not Detected (Not Detect)
[2023-09-10] MEDS: 0.9 % Sodium Chloride 500 ML IV ×2 (12:16→13:18)
[2023-09-10 12:18] LABS: Alanine Aminotransferase 46 U/L (0-40); Albumin Level 2.6 g/dL (3.5-5.0); Alkaline Phosphatase 214 U/L (39-117); Anion Gap 22 (12-20); Aspartate Amino Transferase 169 U/L (5-37); Bilirubin Total 5.1 mg/dL (0.0-1.0); Blood Urea Nitrogen 13 mg/dL (9-16); Calcium 7.8 mg/dL (8.4-10.2); Carbon Dioxide 29 mmol/L (22-29); Chloride 89 mmol/L (96-108); Creatinine Clr Calc Pharmacy 74.8; Estimated Glomerular Filt Rate 51; Ethanol < 10 mg/dL; Glucose Random 118 mg/dL (60-115); Sodium 138 mmol/L (135-145); Total Protein 6.3 g/dL (6.5-8.0)
[2023-09-10] MEDS: metroNIDAZOLE/NS 500 MG/100 ML PIGGYBACK 100 MG IV ×2 (12:18→21:00)
[2023-09-10 12:25] LABS: Magnesium 1.2 mg/dL (1.6-2.6)
[2023-09-10] MEDS: iohexoL 350 MG/ML 100 ML INFUS..BTL IV (12:59)
[2023-09-10 13:29] LABS: Reflex Lactate? Lactic Acid Added
[2023-09-10] MEDS: Lactulose 20 GM/30 ML SOLUTION PO (13:32)
[2023-09-10] MEDS: Potassium Chloride Packet 20 MEQ PACKET 40 MEQ PO (13:32)
[2023-09-10] MEDS: Potassium Chloride/H20 10 MEQ/100 ML PIGGYBACK 100 MEQ IV ×8 (13:38→23:13)
[2023-09-10] MEDS: Midodrine HCl 5 MG TABLET PO (14:07)
[2023-09-10] MEDS: Albumin Human 25 % 100 ML IV ×4 (14:08→17:57)
--- NOTE | 2023-09-10 14:29 | PM.EVENT ---
Event Note Date of Service: 09/10/23 Event Note: Mr. Weber is a 57 Y M with COPD, KD, insulin-dependent DM, CAD s/p stent placements, alcohol misuse, and prior episodes of angioedema d/t pineapples, presented to ED on 09/09 w/ dyspnea, found to be in acute hypoxic respiratory failure, placed on oxymask; ED work-up suggestive of pneumonia, as well as evidence of decompensated cirrhosis; ICU consulted given acute hypoxic respiratory failure; upon assessment, patient transitioned to HFNC, satting mid 90s on 50 L 60 %, SBP 110s, w/o appreciable increased work of breathing; patient in no acute distress, alert, oriented to person, place; some appreciable rhonchi, though no appreciable rales, wheezing; no appreciable murmurs, rubs, gallops; abdomen rotund, though soft, compressible; 2+ pitting edema to bilateral shins; Mr. Weber was discussed with hospitalist, who feels comfortable admitting patient at this current time; agree with antibiotics for pneumonia and lactulose for hyperammonemia; ICU recommendations include electrolyte repletion, albumin as needed, and diuresis if possible Time Spent With Patient Time: Total time managing care of this patient today ____ minutes.
[2023-09-10] MEDS: PHENobarbitaL sodium 130 MG/ML IM ONCE 465 MG IM (15:16)
--- NOTE | 2023-09-10 16:15 | PM.IMHP ---
History of Present Illness Date of Service: 09/10/23 Chief Complaint: dyspnea 57yo M with COPD, EtOH + HCV cirrhosis, seizure disorder, diastolic HF, and DM2 presenting with acute dyspnea starting when he woke up this morning. His visiting nurse called EMS and he was found to have labored breathing and hypoxia with RA SAo2 88%. En route, he was briefly on CPAP and bagged due to being unresponsive. In the ED, he was placed on HFNC. He denied fever, chills, chest pain, nausea, abdominal pain. or vomiting. History per ED PA as he is currently somnolent. Initial BP in the ED 89/59. He was thrombocytopneic, mildly coagulopathic, and severely hypokalemic and hypomagnesemic as well as having RADHA, elevated birirubin, and transaminitis with AST>ALT. Notably, ammonia level was 156. Serum EtOH <10 and urine drug screen negative. Lactate was elevated to 3. He was given 100g of IV albumin. CT angio of the chest was limited by motion, but did not show any large PE. He did have a small infiltrate of the RML + RLL. CT of the abdomen and pelvis showed a small amount of ascites, distended gallbladder, enlarged fatty liver, new pancreatic cysts possibly suggestive of pseudocysts from prior pancreatitis, and teran-colitis. He was given levofloxacin and metronidazole, and a dose of methylprednisolone. BP improved to 107/64 after 5 mg of PO midodrine. He was given a dose of lactulose. He was also given potassium and magnesium. Finally, he was loaded with phenobarbital IM but is now extremely somnolent. A paracentesis was done and 2.6L was removed and sent for fluid studies. Review of Systems Review of Systems: Yes all other systems are reviewed and are negative [facility] Medical History Thrombocytopenia Pneumonia COPD (chronic obstructive pulmonary disease) Diabetes Nicotine dependence, cigarettes, uncomplicated Tracheostomy care Respiratory failure Diastolic CHF Seizure disorder History of TIA (transient ischemic attack) History of hepatitis C CAD (coronary artery disease) HTN (hypertension) Insulin dependent type 2 diabetes mellitus Diabetic neuropathy Restrictive airway disease KD (obstructive sleep apnea) ETOH abuse Morbid obesity Transaminitis Fatty liver History of colon polyps Obesity Microalbuminuria Foot ulcer, left Fracture of right tibia and fibula Metatarsal bone fracture Family History Father CVD (cardiovascular disease) Colon cancer Mother No problems noted. Brother Liver cancer Paternal Aunt Colon cancer Surgical History History of surgery on lower extremity (~2019) History of lumbar spinal fusion History of colonoscopy (~2018) History of hernia repair History of cardiac catheterization (~2018) Social History Household Members: Spouse Household Members Other:: Housing: House Do you presently have visiting nurse or other home services: No Unable to assess alcohol history related to: Unable to respond Alcohol intake: current Alcohol intake frequency: 3 or more drinks per day Alcohol type: beer and hard liquor Patient Tobacco Use Status: Current everyday Tobacco user Tobacco use type: Cigarette Years Smoked: onset 18yo, 1-2ppd x 37yrsm now 1/2ppd - 50pyh Smoked in Last 30 Days: Yes Second Hand Smoke Exposure: Yes Use of substances other than those prescribed or required for medical reasons: No Substance Use Type: Marijuana Advance Directives: Yes Advance Directives on File: Yes Advance Directives Date on File: 03/20/22 Do you have a plan to hurt others: No Plan service: No Current occupational status: disabled Current occupation: right handed Cognitive needs: No Hearing needs: No Vision needs: No Meds Allergies Allergy/AdvReac Type Severity Reaction Status Date / Time cyclobenzaprine Allergy Unknown RASH Verified 09/10/23 11:17 [From FLEXERIL] penicillin V Allergy Unknown anaphylaxis Verified 09/10/23 11:17 pineapple Allergy Unknown Unknown Verified 09/10/23 11:17 FADIA Inhibitors AdvReac Severe Angioedema Verified 09/10/23 11:17 Active Medications: Current Medications Folic Acid (Folic Acid 1 Mg Tablet) 1 mg PO DAILY JAMEEL Glucose (Glucose Gel 15 Gm Gel..Gram.) 15 gm PO Q15M PRN; Protocol PRN Reason: per Hypoglycemia Standing Ord. Potassium Chloride (Potassium Chloride/H20) 10 meq in 100 mls @ 100 mls/hr IV Q1H JAMEEL Stop: 09/10/23 16:29 Last Admin: 09/10/23 15:09 Dose: 100 mls/hr Albumin Human (Kedbumin 25 %) 100 mls @ 100 mls/hr IV Q1H [facility] Stop: 09/10/23 16:44 Last Admin: 09/10/23 15:09 Dose: 100 mls/hr Dextrose (D10) 250 mls @ 750 mls/hr IV Q15M PRN; Protocol PRN Reason: per Hypoglycemia Standing Ord. Thiamine HCl 100 mg/ Sodium (Chloride) 101 mls @ 202 mls/hr IV DAILY [facility] Insulin Human Lispro (Insulin Lispro 100 Unit/Ml 3 Ml Vial) 0 unit SUBCUT QIDACHS [facility]; Protocol Lactulose (Lactulose 20 Gm/30 Ml Solution) 20 gm PO QID [facility] Multivitamins/Vitamin C (Multivitamin Tablet) 1 tab PO DAILY [facility] Pharmacy Consult (Consult Rx Etoh Phenob Im/Po) 1 each MISCELLANE ONCE PRN; Protocol PRN Reason: Consult order Phenobarbital (Phenobarbital 30 Mg Tablet) 60 mg PO BID [facility] Stop: 09/12/23 21:01 Phenobarbital (Phenobarbital 30 Mg Tablet) 30 mg PO BID [facility] Stop: 09/14/23 21:01 Phenobarbital (Phenobarbital 15 Mg Tablet) 15 mg PO DAILY [facility] Stop: 09/16/23 09:01 Phenobarbital Sodium (Phenobarbital Sodium 130 Mg/Ml Vial Im Q3hx2) 349 mg IM Q3H [facility] Stop: 09/10/23 20:01 Rifaximin (Rifaximin 550 Mg Tablet) 550 mg PO BID [facility] Home Medications ?Medication ?Instructions ?Recorded ?Confirmed ?Last Taken ?Type aspirin 81 mg tablet,delayed 81 mg PO DAILY 03/17/22 07/06/23 07/05/23 History release duloxetine 30 mg capsule,delayed 1 cap PO BID 03/17/22 07/06/23 07/05/23 History release multivitamin 1 tab PO DAILY 03/17/22 07/06/23 07/05/23 History carbamazepine 200 mg tablet 200 mg PO BID 12/04/22 07/06/23 07/05/23 History pregabalin 200 mg capsule 200 mg PO TID 12/04/22 07/06/23 07/05/23 History albuterol sulfate 90 mcg/actuation 2 puff inhalation Q6H PRN 06/07/23 07/06/23 07/05/23 History aerosol inhaler shortness of breath or wheezing latanoprost 0.005 % eye drops 1 drp ophthalmic (eye) BEDTIME 06/07/23 07/06/23 07/05/23 History Physical Exam Vital Signs and Narrative: Vital Signs: Last Vital Signs Temp 98 F 09/10/23 11:13 Pulse 71 09/10/23 15:21 Resp 10 L 09/10/23 15:21 BP 107/64 09/10/23 15:21 Pulse Ox 94 09/10/23 15:21 O2 Del Method Armijo 09/10/23 15:21 O2 Flow Rate 40 09/10/23 15:21 Oxygen Flow Rate 6 09/10/23 11:13 BMI result Body Mass Index 36.4 Gen: ill-appearing HEENT: sclera icteric, moist mucus membranes Neck: supple Lungs: diminished, Results Labs 09/10/23 11:24 09/10/23 11:51 Labs: Laboratory Results - last 24 hr 09/10/23 09/10/23 09/10/23 11:12 11:24 11:28 MCV 112.5 H MCH 39.1 H MCHC 34.8 RDW 18.5 H Plt Count 87 L MPV 12.0 Immature Gran % (Auto) 0.5 H Neut % (Auto) 70.7 Lymph % (Auto) 14.2 L [place] % (Auto) 13.1 H Eos % (Auto) 0.7 Baso % (Auto) 0.8 Lymph # (Auto) 1.0 L [place] # (Auto) 1.0 Eos # (Auto) 0.1 Baso # (Auto) 0.1 Abs Immat Gran (auto) 0.04 H Absolute Neuts (auto) 5.2 Absolute Nucleated RBC 0.060 H Nucleated RBC % (auto) 0.8 H PT 14.7 H INR 1.2 H VBG pH 7.45 H VBG pCO2 43 VBG pO2 79 VBG HCO3 30 H VBG O2 Saturation 94.0 VBG Base Excess 6.1 Anion Gap Estim Creat Clear Calc Estimated GFR POC Glucose 128 H Random Glucose Lactic Acid 3.0 H* Calcium Magnesium Total Bilirubin AST ALT Alkaline Phosphatase Ammonia Troponin I High Sens 16.7 B-Natriuretic Peptide 84 Total Protein Albumin Urine Color Urine Appearance Urine pH Ur Specific [place] Urine Protein Urine Glucose (UA) Urine Ketones Urine Blood Urine Nitrite Ur Leukocyte Esterase Urine Opiates Screen Ur Buprenorphine Scrn Ur Oxycodone Screen Urine Methadone Screen Urine Fentanyl Screen Ur Barbiturates Screen Ur Phencyclidine Scrn Ur Amphetamines Screen U Benzodiazepines Scrn Urine Cocaine Screen U Marijuana (THC) Screen Ethyl Alcohol 09/10/23 09/10/23 11:45 11:51 MCV MCH MCHC RDW Plt Count MPV Immature Gran % (Auto) Neut % (Auto) Lymph % (Auto) [place] % (Auto) Eos % (Auto) Baso % (Auto) Lymph # (Auto) [place] # (Auto) Eos # (Auto) Baso # (Auto) Abs Immat Gran (auto) Absolute Neuts (auto) Absolute Nucleated RBC Nucleated RBC % (auto) PT INR VBG pH VBG pCO2 VBG pO2 VBG HCO3 VBG O2 Saturation VBG Base Excess Anion Gap 22 H Estim Creat Clear Calc 74.8 Estimated GFR 51 POC Glucose Random Glucose 118 H Lactic Acid Calcium 7.8 L D Magnesium 1.2 L* Total Bilirubin 5.1 H AST 169 H ALT 46 H Alkaline Phosphatase 214 H Ammonia 156 H Troponin I High Sens B-Natriuretic Peptide Total Protein 6.3 L Albumin 2.6 L Urine Color Dark Yellow Urine Appearance Clear Urine pH 5.5 Ur Specific [place] 1.010 Urine Protein Negative Urine Glucose (UA) Negative Urine Ketones Trace Urine Blood Negative Urine Nitrite Negative Ur Leukocyte Esterase Negative Urine Opiates Screen Not Detected Ur Buprenorphine Scrn Not Detected Ur Oxycodone Screen Not Detected Urine Methadone Screen Not Detected Urine Fentanyl Screen Not Detected Ur Barbiturates Screen Not Detected Ur Phencyclidine Scrn Not Detected Ur Amphetamines Screen Not Detected U Benzodiazepines Scrn Not Detected Urine Cocaine Screen Not Detected U Marijuana (THC) Screen Not Detected Ethyl Alcohol < 10 Imaging Radiologist's Impressions: Impressions Head CT 09/10/23 13:01 IMPRESSION: 1. Unchanged age related cerebral atrophy and ventriculomegaly. 2. No intracranial hemorrhage or skull fracture is seen. 3. No evidence of space occupying lesion could be found. 4. The current plain CT scan of the brain shows no diagnostic evidence of acute cerebral infarction. 5. Unchanged chronic medial left orbital wall fracture with protrusion of orbital fat into left ethmoid sinus. 6. Unchanged asymmetric sclerotic right mastoid process. Abdomen/Pelvis CT 09/10/23 13:05 IMPRESSION: Enlarged fatty liver. Distended gallbladder. No gallstones seen by CT. Small amount of ascites. New pancreatic cysts. These may represent pseudocysts from prior pancreatitis. No evidence of acute pancreatitis. Diffuse wall thickening and edema of the colon suggestive of pancolitis. Fleischner guidelines were followed. Chest CTA 09/10/23 13:05 IMPRESSION: Limited exam due to motion artifact. No evidence of large or central pulmonary embolism. Evaluation of smaller segmental and subsegmental pulmonary arteries limited, particularly at the right lung base. Elevated eventrated right hemidiaphragm and adjacent atelectasis or small infiltrate of the right middle and right lower lobes increased from previous exam. VTE: Assessment and Plan (1) Acute hypoxemic respiratory failure: Status: Acute Plan 57yo M with COPD, EtOH + HCV cirrhosis, seizure disorder, diastolic HF, and DM2 coming in with acute dyspnea and found to have acute hypoxic respiratory failure
[2023-09-10] MEDS: Lidocaine HCl 1 % MPF 5 ML VIAL SUBCUT (16:40)
[2023-09-10 16:43] LABS: Procalcitonin 0.31 ng/mL
[2023-09-10 17:01] LABS: Glucose, Whole Blood 121 mg/dL (60-115)
[2023-09-10 17:03] LABS: MN% 90.1 %; PMN% 9.9 %; WBC Peritoneal Fluid 0.172 X10*3/uL
--- NOTE | 2023-09-10 17:07 | P.EN_ITS ---
Event Note Date of Service: 09/10/23 Event Note: 57yo M with COPD, EtOH + HCV cirrhosis, seizure disorder, diastolic HF, and DM2 presenting with acute dyspnea starting when he woke up this morning. His visiting nurse called EMS and he was found to have labored breathing and hypoxia with RA SAo2 88%. En route, he was briefly on CPAP and bagged due to being unresponsive. In the ED, he was placed on HFNC. He denied fever, chills, chest pain, nausea, abdominal pain. or vomiting. History per ED PA as he is currently somnolent. Initial BP in the ED 89/59. He was thrombocytopneic, mildly coagulopathic, and severely hypokalemic and hypomagnesemic as well as having RADHA, elevated birirubin, and transaminitis with AST>ALT. Notably, ammonia level was 156. Serum EtOH <10 and urine drug screen negative. Lactate was elevated to 3. He was given 100g of IV albumin. CT angio of the chest was limited by motion, but did not show any large PE. He did have a small infiltrate of the RML + RLL. CT of the abdomen and pelvis showed a small amount of ascites, distended gallbladder, enlarged fatty liver, new pancreatic cysts possibly suggestive of pseudocysts from prior pancreatitis, and teran-colitis. He was given levofloxacin and metronidazole, and a dose of methylprednisolone. BP improved to 107/64 after 5 mg of PO midodrine. He was given a dose of lactulose. He was also given potassium and magnesium. Finally, he was loaded with phenobarbital IM but is now extremely somnolent. A paracentesis was done and 2.6L was removed and sent for fluid studies. I discussed the case with the ED PA as well as the interventional radiology tech and initial plan was for me to admit him to the telemetry unit; however, he is now somnolent to the point where I cannot elicit a gag reflex. Likely due to hepatic encephalopathy compounded by phenobarbital. The patient will now be admitted to the ICU. Will obtain ABG and order lactulose FL. Time Spent With Patient Time: Total time managing care of this patient today ____ minutes.
[2023-09-10 17:11] LABS: ABG Base Excess 3.3 mmol/L; ABG HCO3 27 mmol/L (22-26); ABG pCO2 42 mmHg (32-45); ABG pH 7.43 (7.35-7.45); ABG pO2 75 mmHg (83-108)
[2023-09-10 17:21] LABS: ~Lactic Acid-LAB USE ONLY 1.1 mmol/L (0.5-2.0)
[2023-09-10 17:41] LABS: RBC Peritoneal Fluid < 0.002 X10*6/uL
[2023-09-10 17:42] LABS: BF Shift QC OK YES; Lymphocyte Peritoneal Fl 28 %; Man Diluent Bkgrd OK YES; Monocytes Peritoneal Fl 66 %; Neutrophils Peritoneal Fluid 6 %
[2023-09-10 17:45] LABS: Anion Gap 21 (12-20); Blood Urea Nitrogen 12 mg/dL (9-16); Calcium 7.8 mg/dL (8.4-10.2); Carbon Dioxide 29 mmol/L (22-29); Chloride 91 mmol/L (96-108); Creatinine Clr Calc Pharmacy 77.6; Estimated Glomerular Filt Rate 53; Glucose Random 117 mg/dL (60-115); Magnesium 1.6 mg/dL (1.6-2.6); Potassium 2.3 mmol/L (3.3-5.1); Sodium 139 mmol/L (135-145)
--- NOTE | 2023-09-10 18:05 | PHA.MEDREC ---
Pharmacy Consult ? Medication Reconciliation Pharmacy has completed the medication reconciliation.Med rec complete, spoke to patients who reviewed his medications with me. Confirmed that he was no longer on the furosemide
--- NOTE | 2023-09-10 18:32 | PC.NURSE ---
pharmacy contacted for CA lactulose - medication not in Pyxis.
[2023-09-10] MEDS: Albuterol/Iprat 2.5/0.5MG 3 ML AMPUL.NEB INHALE (19:12)
[2023-09-10] MEDS: Folic Acid 1 MG in 0.9 % Sodium Chloride 50 ML 100.4 MG IV (19:22)
[2023-09-10] MEDS: Thiamine HCL 100 MG in 0.9 % Sodium Chloride 100 ML 202 MG IV (19:26)
--- NOTE | 2023-09-10 19:36 | PC.NURSE ---
this rn assumed care of pt, pt alert to sternal rub only at this time. pt on highflow nasal cannula at this time, respirations even but labored, RT at bedside placing pt on 45L, pt sating 92-93%. pt normal sinus on tele 75-80bpm. pt medicated per may. temp sensing andino placed at this time, pt voided 400ML of dark yellow urine.
--- NOTE | 2023-09-10 19:45 | PC.NURSE ---
pharmacy contacted for rectal lactulose at this time.
--- NOTE | 2023-09-10 19:58 | PC.NURSE ---
report given to Kayy SÁNCHEZ in the ICU.
[2023-09-10] MEDS: Lactulose 320 GM/480 ML SOLUTION 200 GM PR (20:05)
[2023-09-10 20:34] LABS: Phosphorus 2.4 mg/dL (2.7-4.5)
[2023-09-10 20:51] LABS: Glucose, Whole Blood 151 mg/dL (60-115)
[2023-09-10] MEDS: methylPREDNISolone Sod Succ 40 MG/ML VIAL IVPUSH (21:00)
--- NOTE | 2023-09-10 21:13 | P.HPCC_ITS ---
History of Present Illness Date of Service: 09/10/23 Attending physician on admission: Nayely Gonzalez Chief Complaint: Acute hypoxic respiratory failure Mr. Weber is a 57 Y M with history of acute hypoxic respiratory failure, COPD, KD, hepatitis-C,? liver cirrhosis, CHF, hypertension, TIA, CAD s/p stent placements, seizure disorder, insulin-dependent DM, alcohol misuse, and prior episodes of angioedema d/t pineapples. He was was brought in by ambulance with difficulty breathing that began this morning. EMS initially had him on CPAP, however, he became momentarily unresponsive and they began bagging him. In the emergency room the patient was alert and stated he felt short of breath. He denied fevers, chills, chest pain, nausea, vomiting, abdominal pain, vision changes, dizziness, changes in urinary or bowel habits. On arrival to the ED, the patient? was afebrile, blood pressure 92/62, heart rate 85, respiratory rate 14, O2 Sat 93% on 6 L OxyMask. ED work-up suggestive of pneumonia, as well as evidence of decompensated cirrhosis.? He was transitioned to HFNC due to acute hypoxic respiratory failure, was given antibiotics for pneumonia,? lactulose for hyperammonemia, and electrolytes were repleted. A paracentesis was done and 2.6L was removed and sent for fluid studies. He was initially admitted to the medical floor but was loaded with phenobarbital IM and became extremely somnolent necessitatting an admission to ICU. Laboratory data significant for? RBC 3.53, hemoglobin 13.8, hematocrit 39.7, platelet 87, PT 14.7, INR 1.2, potassium 2.0, chloride 89, BUN 13, creatinine 1.43, calcium 7.8, magnesium 1.2, total bilirubin 5.1, AST 169, ALT 46, alk-phos 214, ammonia 156, total protein 6.3, albumin 2.6, lactate 3.0.? UA was negative for UTI. Blood cultures, abdominal fluid culture pending. IMAGING:? CXR: Subsegmental atelectasis in the lower lobes and right middle lobe. CT/CT head/brain wo IV con: No intracranial hemorrhage, no fracture, no acute infarct. CT/CT abdomen pelvis w IV con:? Enlarged fatty liver. Distended gallbladder. No gallstones. Small amount of ascites. New pancreatic cysts. These may represent? pseudocysts from prior pancreatitis. No evidence of acute pancreatitis. Diffuse wall thickening and edema of the colon suggestive of pancolitis. CT/CT angio chest PE protocol: No large or central pulmonary embolism. Elevated eventrated right hemidiaphragm and adjacent atelectasis or small infiltrate of the right middle and right lower lobes increased from previous exam. ED course: The patient received a total of 1 L NS, Levofloxacin 500 mg, metronidazole 500 mg, methylprednisolone 125 mg, Mag sulfate 2 g, Klor-Con 40 mEq use, KCl 10 mEq, lactulose 20 g p.o., lactulose 200 g W[place], albumin 100 mL, midodrine 5 mg, phenobarbital 465 mg, thiamine 200 mg. Prior to transfer to the ICU labs were repeated.? Potassium remained low 2.3, 2 hour lactic 1.1,? phosphorus 2.4, magnesium 1.6.?An additional 40 mEq KCL was ordered.? Review of Systems 2 Review of Systems: Yes Unobtainable due to mental status PMFSH Past Medical History Medical History Thrombocytopenia Pneumonia COPD (chronic obstructive pulmonary disease) Diabetes Nicotine dependence, cigarettes, uncomplicated Tracheostomy care Respiratory failure Diastolic CHF Seizure disorder History of TIA (transient ischemic attack) History of hepatitis C CAD (coronary artery disease) HTN (hypertension) Insulin dependent type 2 diabetes mellitus Diabetic neuropathy Restrictive airway disease KD (obstructive sleep apnea) ETOH abuse Morbid obesity Transaminitis Fatty liver History of colon polyps Obesity Microalbuminuria Foot ulcer, left Fracture of right tibia and fibula Metatarsal bone fracture Family History Family History Father CVD (cardiovascular disease) Colon cancer Mother No problems noted. Brother Liver cancer Paternal Aunt Colon cancer Surgical History Surgical History History of surgery on lower extremity (~2019) History of lumbar spinal fusion History of colonoscopy (~2018) History of hernia repair History of cardiac catheterization (~2018) Social History Social History Household Members: Spouse Household Members Other:: Housing: House Do you presently have visiting nurse or other home services: Yes Unable to assess alcohol history related to: Unable to respond Alcohol intake: current Alcohol intake frequency: 3 or more drinks per day Alcohol type: beer and hard liquor Patient Tobacco Use Status: Never used Tobacco Tobacco use type: Cigarette Years Smoked: onset 18yo, 1-2ppd x 37yrsm now 1/2ppd - 50pyh Smoked in Last 30 Days: Yes Second Hand Smoke Exposure: Yes Use of substances other than those prescribed or required for medical reasons: Unable to respond Substance Use Type: Marijuana Currently Displaying Signs/Symptoms of Drug Intoxication Withdrawal: No Advance Directives: Yes Advance Directives on File: Yes Advance Directives Date on File: 03/20/22 Do you have a plan to hurt others: No Plan Nutrition Risks: No Nutritional Risk Poor oral hygiene: Yes service: No Current occupational status: disabled Current occupation: right handed Cognitive needs: No Hearing needs: No Vision needs: No Meds Allergies Allergy/AdvReac Type Severity Reaction Status Date / Time cyclobenzaprine Allergy Unknown RASH Verified 09/10/23 11:17 [From FLEXERIL] penicillin V Allergy Unknown anaphylaxis Verified 09/10/23 11:17 pineapple Allergy Unknown Unknown Verified 09/10/23 11:17 FADIA Inhibitors AdvReac Severe Angioedema Verified 09/10/23 11:17 Active Medications: Current Medications Albuterol Sulfate (Albuterol Sulfate (0.083%) 2.5 Mg/3 Ml Vial.Neb) 2.5 mg INHALE Q2H PRN PRN Reason: Shortness of Breath/Wheezing Albuterol/Ipratropium (Albuterol/Iprat 2.5/0.5mg 3 Ml Ampul.Neb) 3 ml INHALE RQ4H WHILE AWAKE [facility] Last Admin: 09/10/23 19:12 Dose: 3 ml Glucose (Glucose Gel 15 Gm Gel..Gram.) 15 gm PO Q15M PRN; Protocol PRN Reason: per Hypoglycemia Standing Ord. Dextrose (D10) 250 mls @ 750 mls/hr IV Q15M PRN; Protocol PRN Reason: per Hypoglycemia Standing Ord. Thiamine HCl 100 mg/ Sodium (Chloride) 101 mls @ 202 mls/hr IV DAILY [facility] Last Infusion: 09/10/23 20:05 Dose: Infused Metronidazole (Flagyl) 500 mg in 100 mls @ 100 mls/hr IV Q8H [facility] Last Admin: 09/10/23 21:00 Dose: 100 mls/hr Levofloxacin (Levaquin) 750 mg in 150 mls @ 100 mls/hr IV Q24H [facility] Folic Acid 1 mg/ Sodium (Chloride) 50.2 mls @ 100.4 mls/hr IV DAILY [facility] Last Infusion: 09/10/23 20:35 Dose: Infused Potassium Chloride (Potassium Chloride/H20) 10 meq in 100 mls @ 100 mls/hr IV Q1H [facility] Stop: 09/10/23 22:29 Last Admin: 09/10/23 20:59 Dose: 100 mls/hr Potassium Phosphate (Kphos) 15 mmol in 250 mls @ 62.5 mls/hr IV Q4H [facility] Stop: 09/11/23 04:59 Insulin Human Lispro (Insulin Lispro 100 Unit/Ml 3 Ml Vial) 0 unit SUBCUT QIDACHS [facility]; Protocol Last Admin: 09/10/23 21:00 Dose: Not Given Methylprednisolone Sodium Succinate (Methylprednisolone Sod Succ 40 Mg/Ml Vial) 40 mg IVPUSH Q12H [facility] Last Admin: 09/10/23 21:00 Dose: 40 mg Pharmacy Consult (Consult Rx Etoh Phenob Im/Po) 1 each MISCELLANE ONCE PRN; Protocol PRN Reason: Consult order Phenobarbital (Phenobarbital 30 Mg Tablet) 60 mg PO BID [facility] Stop: 09/12/23 21:01 Phenobarbital (Phenobarbital 30 Mg Tablet) 30 mg PO BID [facility] Stop: 09/14/23 21:01 Phenobarbital (Phenobarbital 15 Mg Tablet) 15 mg PO DAILY [facility] Stop: 09/16/23 09:01 Phenobarbital Sodium (Phenobarbital Sodium 130 Mg/Ml Vial Im Q3hx2) 349 mg IM Q3H [facility] Last Admin: 09/10/23 16:42 Dose: Not Given Rifaximin (Rifaximin 550 Mg Tablet) 550 mg PO BID [facility] Last Admin: 09/10/23 21:09 Dose: Not Given Sodium Chloride (0.9 % Sodium Chloride Flush 3 Ml Syringe) 3 ml IVFLUSH QSHIFT [facility] Home Medications ?Medication ?Instructions ?Recorded ?Confirmed ?Last Taken ?Type aspirin 81 mg tablet,delayed 81 mg PO DAILY 03/17/22 09/10/23 07/05/23 History release duloxetine 30 mg capsule,delayed 1 cap PO BID 12/09/10/23 07/05/23 History release multivitamin 1 tab PO DAILY 03/17/22 09/10/23 07/05/23 History carbamazepine 200 mg tablet 200 mg PO BID 12/04/22 09/10/23 07/05/23 History pregabalin 200 mg capsule 200 mg PO TID 12/04/22 09/10/23 07/05/23 History albuterol sulfate 90 mcg/actuation 2 puff inhalation Q6H PRN 06/07/23 09/10/23 07/05/23 History aerosol inhaler shortness of breath or wheezing latanoprost 0.005 % eye drops 1 drp ophthalmic (eye) BEDTIME 06/07/23 09/10/23 07/05/23 History oxycodone 5 mg tablet 5 mg PO DAILY PRN Pain (Scale 09/10/23 09/10/23 Unknown History Score 4-6) Physical Exam 2 Vital Signs: Vital Signs: Last Vital Signs Temp 97.0 F 09/10/23 20:00 Pulse 71 09/10/23 20:00 Resp 12 09/10/23 20:00 BP 129/77 09/10/23 20:00 Pulse Ox 97 09/10/23 20:00 O2 Del Method High Flow Nasal C annula 09/10/23 20:00 O2 Flow Rate 45 09/10/23 20:00 FiO2 65 09/10/23 20:00 Oxygen Flow Rate 6 09/10/23 11:13 BMI result Body Mass Index 36.4 Const: General: ill appearing, lethargic and patient obtunded Nutritional Appearance: obese Orientation/consciousness: patient obtunded and lethargic Limitations: altered mental status HEENT: Head: Yes normocephalic and Yes atraumatic Eyes: General: appearance normal, both eyes and all related structures S clerae: sclerae normal Neck: Neck: Yes normal visual inspection and Yes trachea midline Carotids: normal carotid upstroke Resp: Effort & Inspection: normal respiratory effort Auscultation: clear to auscultation bilaterally and rhonchi right upper Cardio: Jugular venous distension: no JVD Rate: regular rate Rhythm: r egular rhythm Heart sounds: no gallops, no murmurs and no rubs Peripheral pulses: Peripheral pulses 2+ throughout GI: Inspection: Yes distended and Yes obesity Palpation (GI): Soft to palpation and Hepatomegaly present Auscultation: normal bowel sounds : Scrotum: erythematous Skin: General skin exam: ecchymosis (scattered ecchymosis bilateral upper and lower extremities) and scars mid back surgical and well-healed Rashes: rashes noted (groin, gluteal folds, abdominal folds) Wounds: wounds noted (diabetic ulcers noted on all toes bilaterally) Neuro: General: patient obtunded Pupils: Sluggish: right and left Left pupil size: 0.16 in Right pupil size: 0.16 in Extrem: General: Yes edema Right lower extremity: edema Details: 2+ Left lower extremity: edema Details: 2+ Psych: Appearance: poorly kempt Results Labs 09/10/23 11:24 09/11/23 00:59 Labs: Laboratory Results - last 24 hr 09/10/23 09/10/23 09/10/23 11:12 11:24 11:28 MCV 112.5 H MCH 39.1 H MCHC 34.8 RDW 18.5 H Plt Count 87 L MPV 12.0 Immature Gran % (Auto) 0.5 H Neut % (Auto) 70.7 Lymph % (Auto) 14.2 L [place] % (Auto) 13.1 H Eos % (Auto) 0.7 Baso % (Auto) 0.8 Lymph # (Auto) 1.0 L [place] # (Auto) 1.0 Eos # (Auto) 0.1 Baso # (Auto) 0.1 Abs Immat Gran (auto) 0.04 H Absolute Neuts (auto) 5.2 Absolute Nucleated RBC 0.060 H Nucleated RBC % (auto) 0.8 H PT 14.7 H INR 1.2 H O2 Saturation ABG pH at Pt Temp ABG pCO2 at Pt Temp ABG pO2 at Pt Temp ABG HCO3 ABG Base Excess (Actual) VBG pH 7.45 H VBG pCO2 43 VBG pO2 79 VBG HCO3 30 H VBG O2 Saturation 94.0 VBG Base Excess 6.1 Anion Gap Estim Creat Clear Calc Estimated GFR POC Glucose 128 H Random Glucose Lactic Acid 3.0 H* Lactic Acid F/U @ 2Hr Calcium Phosphorus Magnesium Total Bilirubin AST ALT Alkaline Phosphatase Ammonia Troponin I High Sens 16.7 B-Natriuretic Peptide 84 Total Protein Albumin Procalcitonin Urine Color Urine Appearance Urine pH Ur Specific [place] Urine Protein Urine Glucose (UA) Urine Ketones Urine Blood Urine Nitrite Ur Leukocyte Esterase Peritoneal WBC Peritoneal RBC Periton Neutrophils [place] Lymphocytes Peritoneal Monocytes Urine Opiates Screen Ur Buprenorphine Scrn Ur Oxycodone Screen Urine Methadone Screen Urine Fentanyl Screen Ur Barbiturates Screen Ur Phencyclidine Scrn Ur Amphetamines Screen U Benzodiazepines Scrn Urine Cocaine Screen U Marijuana (THC) Screen Ethyl Alcohol 09/10/23 09/10/23 09/10/23 11:45 11:51 16:10 MCV MCH MCHC RDW Plt Count MPV Immature Gran % (Auto) Neut % (Auto) Lymph % (Auto) [place] % (Auto) Eos % (Auto) Baso % (Auto) Lymph # (Auto) [place] # (Auto) Eos # (Auto) Baso # (Auto) Abs Immat Gran (auto) Absolute Neuts (auto) Absolute Nucleated RBC Nucleated RBC % (auto) PT INR O2 Saturation ABG pH at Pt Temp ABG pCO2 at Pt Temp ABG pO2 at Pt Temp ABG HCO3 ABG Base Excess (Actual) VBG pH VBG pCO2 VBG pO2 VBG HCO3 VBG O2 Saturation VBG Base Excess Anion Gap 22 H Estim Creat Clear Calc 74.8 Estimated GFR 51 POC Glucose Random Glucose 118 H Lactic Acid Lactic Acid F/U @ 2Hr Calcium 7.8 L D Phosphorus Magnesium 1.2 L* Total Bilirubin 5.1 H AST 169 H ALT 46 H Alkaline Phosphatase 214 H Ammonia 156 H Troponin I High Sens B-Natriuretic Peptide Total Protein 6.3 L Albumin 2.6 L Procalcitonin 0.31 Urine Color Dark Yellow Urine Appearance Clear Urine pH 5.5 Ur Specific [place] 1.010 Urine Protein Negative Urine Glucose (UA) Negative Urine Ketones Trace Urine Blood Negative Urine Nitrite Negative Ur Leukocyte Esterase Negative Peritoneal WBC 0.172 Peritoneal RBC < 0.002 [place] Neutrophils 6 [place] Lymphocytes 28 Peritoneal Monocytes 66 Urine Opiates Screen Not Detected Ur Buprenorphine Scrn Not Detected Ur Oxycodone Screen Not Detected Urine Methadone Screen Not Detected Urine Fentanyl Screen Not Detected Ur Barbiturates Screen Not Detected Ur Phencyclidine Scrn Not Detected Ur Amphetamines Screen Not Detected U Benzodiazepines Scrn Not Detected Urine Cocaine Screen Not Detected U Marijuana (THC) Screen Not Detected Ethyl Alcohol < 10 09/10/23 09/10/23 09/10/23 16:58 17:02 17:04 MCV MCH MCHC RDW Plt Count MPV Immature Gran % (Auto) Neut % (Auto) Lymph % (Auto) [place] % (Auto) Eos % (Auto) Baso % (Auto) Lymph # (Auto) [place] # (Auto) Eos # (Auto) Baso # (Auto) Abs Immat Gran (auto) Absolute Neuts (auto) Absolute Nucleated RBC Nucleated RBC % (auto) PT INR O2 Saturation 92.0 ABG pH at Pt Temp 7.43 ABG pCO2 at Pt Temp 42 ABG pO2 at Pt Temp 75 L ABG HCO3 27 H ABG Base Excess (Actual) 3.3 VBG pH VBG pCO2 VBG pO2 VBG HCO3 VBG O2 Saturation VBG Base Excess Anion Gap 21 H Estim Creat Clear Calc 77.6 Estimated GFR 53 POC Glucose 121 H Random Glucose 117 H Lactic Acid Lactic Acid F/U @ 2Hr 1.1 Calcium 7.8 L Phosphorus 2.4 L Magnesium 1.6 Total Bilirubin AST ALT Alkaline Phosphatase Ammonia Troponin I High Sens B-Natriuretic Peptide Total Protein Albumin Procalcitonin Urine Color Urine Appearance Urine pH Ur Specific [place] Urine Protein Urine Glucose (UA) Urine Ketones Urine Blood Urine Nitrite Ur Leukocyte Esterase Peritoneal WBC Peritoneal RBC Periton Neutrophils [place] Lymphocytes Peritoneal Monocytes Urine Opiates Screen Ur Buprenorphine Scrn Ur Oxycodone Screen Urine Methadone Screen Urine Fentanyl Screen Ur Barbiturates Screen Ur Phencyclidine Scrn Ur Amphetamines Screen U Benzodiazepines Scrn Urine Cocaine Screen U Marijuana (THC) Screen Ethyl Alcohol 09/10/23 20:47 MCV MCH MCHC RDW Plt Count MPV Immature Gran % (Auto) Neut % (Auto) Lymph % (Auto) [place] % (Auto) Eos % (Auto) Baso % (Auto) Lymph # (Auto) [place] # (Auto) Eos # (Auto) Baso # (Auto) Abs Immat Gran (auto) Absolute Neuts (auto) Absolute Nucleated RBC Nucleated RBC % (auto) PT INR O2 Saturation ABG pH at Pt Temp ABG pCO2 at Pt Temp ABG pO2 at Pt Temp ABG HCO3 ABG Base Excess (Actual) VBG pH VBG pCO2 VBG pO2 VBG HCO3 VBG O2 Saturation VBG Base Excess Anion Gap Estim Creat Clear Calc Estimated GFR POC Glucose 151 H Random Glucose Lactic Acid Lactic Acid F/U @ 2Hr Calcium Phosphorus Magnesium Total Bilirubin AST ALT Alkaline Phosphatase Ammonia Troponin I High Sens B-Natriuretic Peptide Total Protein Albumin Procalcitonin Urine Color Urine Appearance Urine pH Ur Specific [place] Urine Protein Urine Glucose (UA) Urine Ketones Urine Blood Urine Nitrite Ur Leukocyte Esterase Peritoneal WBC Peritoneal RBC Periton Neutrophils [place] Lymphocytes Peritoneal Monocytes Urine Opiates Screen Ur Buprenorphine Scrn Ur Oxycodone Screen Urine Methadone Screen Urine Fentanyl Screen Ur Barbiturates Screen Ur Phencyclidine Scrn Ur Amphetamines Screen U Benzodiazepines Scrn Urine Cocaine Screen U Marijuana (THC) Screen Ethyl Alcohol Imaging Radiologist's Impressions: Impressions Chest X-Ray 09/10/23 12:02 IMPRESSION: Subsegmental atelectasis in the lower lobes and right middle lobe. No acute pulmonary findings. Head CT 09/10/23 13:01 IMPRESSION: 1. Unchanged age related cerebral atrophy and ventriculomegaly. 2. No intracranial hemorrhage or skull fracture is seen. 3. No evidence of space occupying lesion could be found. 4. The current plain CT scan of the brain shows no diagnostic evidence of acute cerebral infarction. 5. Unchanged chronic medial left orbital wall fracture with protrusion of orbital fat into left ethmoid sinus. 6. Unchanged asymmetric sclerotic right mastoid process. Abdomen/Pelvis CT 09/10/23 13:05 IMPRESSION: Enlarged fatty liver. Distended gallbladder. No gallstones seen by CT. Small amount of ascites. New pancreatic cysts. These may represent pseudocysts from prior pancreatitis. No evidence of acute pancreatitis. Diffuse wall thickening and edema of the colon suggestive of pancolitis. Fleischner guidelines were followed. Chest CTA 09/10/23 13:05 IMPRESSION: Limited exam due to motion artifact. No evidence of large or central pulmonary embolism. Evaluation of smaller segmental and subsegmental pulmonary arteries limited, particularly at the right lung base. Elevated eventrated right hemidiaphragm and adjacent atelectasis or small infiltrate of the right middle and right lower lobes increased from previous exam. VTE: Assessment and Plan (1) Pneumonia: Qualifiers: Laterality: right Lung location: middle lobe of lung Pneumonia type: d ue to unspecified organism Qualified Code(s): J18.9 - Pneumonia, unspecified organism Status: Acute (2) Alcohol withdrawal syndrome: Qualifiers: Complication of substance-induced condition: with unspecified complication Qualified Code(s): F10.939 - Alcohol use, unspecified with withdrawal, unspecified Status: Acute (3) Transaminitis: Status: Acute (4) Ascites: Qualifiers: Ascites type: other type Qualified Code(s): R18.8 - Other ascites Status: Acute (5) Hypomagnesemia: Status: Acute (6) Acute hypokalemia: Status: Acute (7) Acute hepatic encephalopathy: Status: Acute (8) Acute hypoxemic respiratory failure: Status: Acute (9) Hypoxia: Status: Acute (10) Candidal dermatitis: Status: Acute (11) Hyperglycemia due to diabetes mellitus: Status: Acute (12) Edema of both legs: Status: Acute (13) Leg swelling: Status: Acute (14) Liver cirrhosis: Qualifiers: Ascites presence: with ascites Hepatic cirrhosis type: unspecified hepatic cirrhosis Qualified Code(s): K74.60 - Unspecified cirrhosis of liver; R18.8 - Other ascites Status: Acute Plan 57 Y M with COPD, KD, insulin-dependent DM, CAD s/p stent placements, alcohol misuse, and prior episodes of angioedema d/t pineapples? admitted for management of acute hypoxic respiratory failure, pneumonia, hepatic encephalopathy, hyperammonemia,? electrolyte abnormalities,? alcohol withdrawal. PLAN: Neuro: encephalopathy, likely toxic/metabolic, alcohol misuse, CIWA protocol Cardiac: Underlying CHF. Appears to be in overt fluid overload. Diurese as able. Pulmonary: Underlying COPD, KD. Acute on chronic hypoxic respiratory failure, on HFNC. Infiltrate of the right middle and right lower lobes. Continue antibiotics.Continue DuoNebs, Solu-Medrol. Wean off supplemental oxygen as tolerated.? Renal: Creatinine at baseline. Hypokalemia, hypomagnesemia. Replete PRN. Monitor renal indices, electrolytes and urine output.? Endo: Diabetes mellitus, insulin sliding scale GI: Elevated bilirubin, transaminitis, hyperammonemia. Ascites. Alcohol misuse likely c/b cirrhosis. Continue lactulose. Albumin prn. Phenobarb per Ciwa protocol. Trend liver enzymes. RUQ U/S to r/o hepatic venous obstruction. Heme/onc: Underlying microcytic anemia, at baseline. Thrombocytopenia, continue to monitor; chemical DVT prophylaxis if/when platelets > 100 ID: Blood cultures, abd fluid culture pending. Repeat lactic 1.1. No concern for sepsis.? Prophylaxis: pneumatic hoses Diet:? NPO? Case discussed with Dr. Gonzalez. Total time managing care of this patient today: 90 minutes.
[2023-09-10 22:39] LABS: ABG Refer to POC result
[2023-09-11] VITALS (24 sets, daily range): BP systolic 95–166; BP diastolic 55–91; PULSE 73–96; RESP 8–20; TEMP 36.3–36.9; O2SAT 92–100; BMI 34.4
[2023-09-11] MEDS: Potassium Phosphate/NS 15 MMOL/250 ML PLAST..BAG 62.5 MMOL IV ×2 (00:30→04:11)
[2023-09-11 01:10] LABS: Venous Blood Gas Refer to POC result
[2023-09-11 01:12] LABS: VBG Base Excess 2.5 mmol/L; VBG HCO3 26 mmol/L (22-26); VBG pCO2 38 mmHg; VBG pH 7.44 (7.32-7.43); VBG pO2 93 mmHg
[2023-09-11 01:40] LABS: Albumin Level 3.5 g/dL (3.5-5.0); Anion Gap 26 (12-20); Blood Urea Nitrogen 13 mg/dL (9-16); Calcium 7.9 mg/dL (8.4-10.2); Carbon Dioxide 24 mmol/L (22-29); Chloride 92 mmol/L (96-108); Creatinine Clr Calc Pharmacy 75.4; Estimated Glomerular Filt Rate 51; Glucose Random 157 mg/dL (60-115); Magnesium 1.6 mg/dL (1.6-2.6); Potassium 2.5 mmol/L (3.3-5.1); Sodium 139 mmol/L (135-145)
[2023-09-11] MEDS: Potassium Chloride Packet 20 MEQ PACKET 40 MEQ PO ×2 (02:00→07:47)
[2023-09-11] MEDS: Magnesium Sulfate/D5W 1 GM/100 ML PIGGYBACK IV (02:02)
[2023-09-11] MEDS: Lactulose 20 GM/30 ML SOLUTION PO ×5 (03:06→20:49)
[2023-09-11] MEDS: metroNIDAZOLE/NS 500 MG/100 ML PIGGYBACK 100 MG IV ×3 (03:06→19:46)
--- NOTE | 2023-09-11 03:18 | HO.SKINPHOTO ---
Location: Bilateral buttock Category: MASD/IAD
--- NOTE | 2023-09-11 04:21 | PC.NURSE ---
Pt admitted to ICU from ED at approx 2030. Upon initial assessment- pt obtunded, only moaning to sternal rub. Rectal tube inserted for lactulose administration per MAY. By approx 0030, pt becoming more alert- still lethargic and falls asleep easily without stimulation, but follows simple commands, weakly DOBBS, and passed bedside swallow eval. Afebrile. NSR on tele, HR 70-90s. SBP 100s, MAP > 65. +3 BLE edema. HFNC titrated down to 45L/50% by RT, pt denies SOB. Abdomen distended, semi-firm, FMS patent and draining. Urinary catheter in place, UOP approx 30 mL/hr. Multiple skin integrity concerns- see picture uploaded/assessments per EMR, wound consult placed. Repositioned in bed q2hr with pillows, bed locked in lowest position with bed alarm on. Family aware of pt status/plan of care.
[2023-09-11 05:25] LABS: VBG Base Excess -0.8 mmol/L; VBG HCO3 21 mmol/L (22-26); VBG pCO2 29 mmHg; VBG pH 7.47 (7.32-7.43); VBG pO2 71 mmHg
[2023-09-11 05:39] LABS: Venous Blood Gas Refer to POC result
[2023-09-11 06:12] LABS: Hematocrit 35.4 % (42.0-52.0); Hemoglobin 11.8 g/dl (14.0-18.0); Mean Corpuscular HGB Conc 33.3 g/dl (31.0-36.0); Mean Corpuscular Hemoglobin 38.3 pg (27.0-33.0); Mean Corpuscular Volume 114.9 fL (80.0-98.0); Mean Platelet Volume 11.2 fL (9.4-12.4); NRBC Pct Auto 0.7 /100WBC (0.0-0.2); Platelet Count 52 X10*3/uL (160-400); Red Blood Count 3.08 X10*6/uL (4.60-5.80); Red Cell Distribution Width 18.8 % (11.0-16.0); White Blood Count 5.4 X10*3/uL (4.8-10.8)
[2023-09-11 06:22] LABS: Ammonia 77 umol/L (13-55); INTERNATIONAL NORM RATIO 1.2 (0.9-1.1)
[2023-09-11 06:50] LABS: Alanine Aminotransferase 38 U/L (0-40); Albumin Level 3.4 g/dL (3.5-5.0); Alkaline Phosphatase 193 U/L (39-117); Anion Gap 27 (12-20); Aspartate Amino Transferase 147 U/L (5-37); Bilirubin Total 6.3 mg/dL (0.0-1.0); Blood Urea Nitrogen 13 mg/dL (9-16); Calcium 7.9 mg/dL (8.4-10.2); Carbon Dioxide 24 mmol/L (22-29); Chloride 92 mmol/L (96-108); Creatinine Clr Calc Pharmacy 73.8; Estimated Glomerular Filt Rate 51; Glucose Random 165 mg/dL (60-115); Magnesium 1.8 mg/dL (1.6-2.6); Potassium 2.5 mmol/L (3.3-5.1); Sodium 140 mmol/L (135-145); Total Protein 6.5 g/dL (6.5-8.0)
[2023-09-11 07:39] LABS: Glucose, Whole Blood 159 mg/dL (60-115)
[2023-09-11] MEDS: Potassium Chloride/H20 10 MEQ/100 ML PIGGYBACK 100 MEQ IV ×4 (07:46→10:53)
[2023-09-11] MEDS: 0.9 % Sodium Chloride Flush 3 ML SYRINGE IVFLUSH ×2 (07:46→19:46)
--- NOTE | 2023-09-11 07:48 | PM.CCPN ---
Subjective Subjective Date of Service: 09/11/23 Interval History: no significant overnight events Critical Care Time (minutes): 60 Physical Exam Vital Signs: Vital Signs: Last Vital Signs Temp 98.1 F 09/11/23 07:00 Pulse 79 09/11/23 07:00 Resp 18 09/11/23 07:00 BP 103/58 L 09/11/23 07:00 Pulse Ox 96 09/11/23 07:00 O2 Del Method High Flow Nasal C annula 09/11/23 07:00 O2 Flow Rate 45 09/11/23 07:00 FiO2 50 09/11/23 07:00 Oxygen Flow Rate 6 09/10/23 11:13 BMI result Body Mass Index 34.4 Const: General: cooperative, healthy appearing, comfortable, no acute distress, well developed, alert, awake and Physically active Orientation/consciousness: oriented to person and oriented to place HEENT: Head: Yes normal to inspection, Yes normocephalic and Yes atraumatic Eyes: General: appearance normal, both eyes and all related structures Neck: Neck: Yes normal visual inspection, Yes full ROM, Yes no meningeal signs, Yes trachea midline and Yes supple Chest: Chest palpation & inspection: normal inspection of the chest Resp: Other: no appreciable rales, rhonchi, wheezing Effort & Inspection: normal respiratory effort Cardio: Rate: regular rate Rhythm: regular rhythm GI: Inspection: Yes normal to inspection, No Abdominal wall edema and Yes distended Palpation (GI): Soft to palpation, not firm, nontender, no guarding and not rigid : Male General Exam: Yes normal external exam Skin: General skin exam: no rashes or lesions noted Neuro: General: oriented to person, oriented to place, tone normal, moves all extremities, no meningeal signs and no focal motor deficits Extrem: Other: 1+ pitting edema to bilateral knees General: Yes normal to inspection, Yes full ROM and Yes capillary refill normal Psych: Appearance: grossly normal Objective Data Labs 09/11/23 05:16 09/11/23 05:16 Labs: Laboratory Results - last 24 hr 09/10/23 09/10/23 09/10/23 11:12 11:24 11:28 WBC 7.3 RBC 3.53 L Hgb 13.8 L Hct 39.7 L MCV 112.5 H MCH 39.1 H MCHC 34.8 RDW 18.5 H Plt Count 87 L MPV 12.0 Immature Gran % (Auto) 0.5 H Neut % (Auto) 70.7 Lymph % (Auto) 14.2 L [place] % (Auto) 13.1 H Eos % (Auto) 0.7 Baso % (Auto) 0.8 Lymph # (Auto) 1.0 L [place] # (Auto) 1.0 Eos # (Auto) 0.1 Baso # (Auto) 0.1 Abs Immat Gran (auto) 0.04 H Absolute Neuts (auto) 5.2 Absolute Nucleated RBC 0.060 H Nucleated RBC % (auto) 0.8 H PT 14.7 H INR 1.2 H O2 Saturation ABG pH at Pt Temp ABG pCO2 at Pt Temp ABG pO2 at Pt Temp ABG HCO3 ABG Base Excess (Actual) VBG pH 7.45 H VBG pCO2 43 VBG pO2 79 VBG HCO3 30 H VBG O2 Saturation 94.0 VBG Base Excess 6.1 Sodium Potassium Chloride Carbon Dioxide Anion Gap BUN Creatinine Estim Creat Clear Calc Estimated GFR POC Glucose 128 H Random Glucose Lactic Acid 3.0 H* Lactic Acid F/U @ 2Hr Calcium Phosphorus Magnesium Total Bilirubin AST ALT Alkaline Phosphatase Ammonia Troponin I High Sens 16.7 B-Natriuretic Peptide 84 Total Protein Albumin Procalcitonin Urine Color Urine Appearance Urine pH Ur Specific [place] Urine Protein Urine Glucose (UA) Urine Ketones Urine Blood Urine Nitrite Ur Leukocyte Esterase Ur Random Sodium Peritoneal WBC Peritoneal RBC Periton Neutrophils Periton Lymphocytes Peritoneal Monocytes Urine Opiates Screen Ur Buprenorphine Scrn Ur Oxycodone Screen Urine Methadone Screen Urine Fentanyl Screen Ur Barbiturates Screen Ur Phencyclidine Scrn Ur Amphetamines Screen U Benzodiazepines Scrn Urine Cocaine Screen U Marijuana (THC) Screen Ethyl Alcohol 09/10/23 09/10/23 09/10/23 11:45 11:51 16:10 WBC RBC Hgb Hct MCV MCH MCHC RDW Plt Count MPV Immature Gran % (Auto) Neut % (Auto) Lymph % (Auto) [place] % (Auto) Eos % (Auto) Baso % (Auto) Lymph # (Auto) [place] # (Auto) Eos # (Auto) Baso # (Auto) Abs Immat Gran (auto) Absolute Neuts (auto) Absolute Nucleated RBC Nucleated RBC % (auto) PT INR O2 Saturation ABG pH at Pt Temp ABG pCO2 at Pt Temp ABG pO2 at Pt Temp ABG HCO3 ABG Base Excess (Actual) VBG pH VBG pCO2 VBG pO2 VBG HCO3 VBG O2 Saturation VBG Base Excess Sodium 138 Potassium 2.0 L* D Chloride 89 L Carbon Dioxide 29 Anion Gap 22 H BUN 13 Creatinine 1.43 H Estim Creat Clear Calc 74.8 Estimated GFR 51 POC Glucose Random Glucose 118 H Lactic Acid Lactic Acid F/U @ 2Hr Calcium 7.8 L D Phosphorus Magnesium 1.2 L* Total Bilirubin 5.1 H AST 169 H ALT 46 H Alkaline Phosphatase 214 H Ammonia 156 H Troponin I High Sens B-Natriuretic Peptide Total Protein 6.3 L Albumin 2.6 L Procalcitonin 0.31 Urine Color Dark Yellow Urine Appearance Clear Urine pH 5.5 Ur Specific [place] 1.010 Urine Protein Negative Urine Glucose (UA) Negative Urine Ketones Trace Urine Blood Negative Urine Nitrite Negative Ur Leukocyte Esterase Negative Ur Random Sodium 36.0 Peritoneal WBC 0.172 Peritoneal RBC < 0.002 Periton Neutrophils 6 Periton Lymphocytes 28 Peritoneal Monocytes 66 Urine Opiates Screen Not Detected Ur Buprenorphine Scrn Not Detected Ur Oxycodone Screen Not Detected Urine Methadone Screen Not Detected Urine Fentanyl Screen Not Detected Ur Barbiturates Screen Not Detected Ur Phencyclidine Scrn Not Detected Ur Amphetamines Screen Not Detected U Benzodiazepines Scrn Not Detected Urine Cocaine Screen Not Detected U Marijuana (THC) Screen Not Detected Ethyl Alcohol < 10 09/10/23 09/10/23 09/10/23 16:58 17:02 17:04 WBC RBC Hgb Hct MCV MCH MCHC RDW Plt Count MPV Immature Gran % (Auto) Neut % (Auto) Lymph % (Auto) [place] % (Auto) Eos % (Auto) Baso % (Auto) Lymph # (Auto) [place] # (Auto) Eos # (Auto) Baso # (Auto) Abs Immat Gran (auto) Absolute Neuts (auto) Absolute Nucleated RBC Nucleated RBC % (auto) PT INR O2 Saturation 92.0 ABG pH at Pt Temp 7.43 ABG pCO2 at Pt Temp 42 ABG pO2 at Pt Temp 75 L ABG HCO3 27 H ABG Base Excess (Actual) 3.3 VBG pH VBG pCO2 VBG pO2 VBG HCO3 VBG O2 Saturation VBG Base Excess Sodium 139 Potassium 2.3 L* Chloride 91 L Carbon Dioxide 29 Anion Gap 21 H BUN 12 Creatinine 1.38 Estim Creat Clear Calc 77.6 Estimated GFR 53 POC Glucose 121 H Random Glucose 117 H Lactic Acid Lactic Acid F/U @ 2Hr 1.1 Calcium 7.8 L Phosphorus 2.4 L Magnesium 1.6 Total Bilirubin AST ALT Alkaline Phosphatase Ammonia Troponin I High Sens B-Natriuretic Peptide Total Protein Albumin Procalcitonin Urine Color Urine Appearance Urine pH Ur Specific [place] Urine Protein Urine Glucose (UA) Urine Ketones Urine Blood Urine Nitrite Ur Leukocyte Esterase Ur Random Sodium Peritoneal WBC Peritoneal RBC Periton Neutrophils Periton Lymphocytes Peritoneal Monocytes Urine Opiates Screen Ur Buprenorphine Scrn Ur Oxycodone Screen Urine Methadone Screen Urine Fentanyl Screen Ur Barbiturates Screen Ur Phencyclidine Scrn Ur Amphetamines Screen U Benzodiazepines Scrn Urine Cocaine Screen U Marijuana (THC) Screen Ethyl Alcohol 09/10/23 09/11/23 09/11/23 20:47 00:59 01:05 WBC RBC Hgb Hct MCV MCH MCHC RDW Plt Count MPV Immature Gran % (Auto) Neut % (Auto) Lymph % (Auto) [place] % (Auto) Eos % (Auto) Baso % (Auto) Lymph # (Auto) [place] # (Auto) Eos # (Auto) Baso # (Auto) Abs Immat Gran (auto) Absolute Neuts (auto) Absolute Nucleated RBC Nucleated RBC % (auto) PT INR O2 Saturation ABG pH at Pt Temp ABG pCO2 at Pt Temp ABG pO2 at Pt Temp ABG HCO3 ABG Base Excess (Actual) VBG pH 7.44 H VBG pCO2 38 VBG pO2 93 VBG HCO3 26 VBG O2 Saturation 98.0 VBG Base Excess 2.5 Sodium 139 Potassium 2.5 L* Chloride 92 L Carbon Dioxide 24 Anion Gap 26 H BUN 13 Creatinine 1.42 H Estim Creat Clear Calc 75.4 Estimated GFR 51 POC Glucose 151 H Random Glucose 157 H Lactic Acid Lactic Acid F/U @ 2Hr Calcium 7.9 L Phosphorus 3.0 Magnesium 1.6 Total Bilirubin AST ALT Alkaline Phosphatase Ammonia Troponin I High Sens B-Natriuretic Peptide Total Protein Albumin 3.5 Procalcitonin Urine Color Urine Appearance Urine pH Ur Specific [place] Urine Protein Urine Glucose (UA) Urine Ketones Urine Blood Urine Nitrite Ur Leukocyte Esterase Ur Random Sodium Peritoneal WBC Peritoneal RBC Periton Neutrophils Periton Lymphocytes Peritoneal Monocytes Urine Opiates Screen Ur Buprenorphine Scrn Ur Oxycodone Screen Urine Methadone Screen Urine Fentanyl Screen Ur Barbiturates Screen Ur Phencyclidine Scrn Ur Amphetamines Screen U Benzodiazepines Scrn Urine Cocaine Screen U Marijuana (THC) Screen Ethyl Alcohol 09/11/23 09/11/23 05:16 07:35 WBC 5.4 RBC 3.08 L Hgb 11.8 L Hct 35.4 L MCV 114.9 H MCH 38.3 H MCHC 33.3 RDW 18.8 H Plt Count 52 L D MPV 11.2 Immature Gran % (Auto) Neut % (Auto) Lymph % (Auto) [place] % (Auto) Eos % (Auto) Baso % (Auto) Lymph # (Auto) [place] # (Auto) Eos # (Auto) Baso # (Auto) Abs Immat Gran (auto) Absolute Neuts (auto) Absolute Nucleated RBC 0.040 H Nucleated RBC % (auto) 0.7 H PT 15.0 H INR 1.2 H O2 Saturation ABG pH at Pt Temp ABG pCO2 at Pt Temp ABG pO2 at Pt Temp ABG HCO3 ABG Base Excess (Actual) VBG pH 7.47 H VBG pCO2 29 VBG pO2 71 VBG HCO3 21 L VBG O2 Saturation 92.0 VBG Base Excess -0.8 Sodium 140 Potassium 2.5 L* Chloride 92 L Carbon Dioxide 24 Anion Gap 27 H BUN 13 Creatinine 1.41 H Estim Creat Clear Calc 73.8 Estimated GFR 51 POC Glucose 159 H Random Glucose 165 H Lactic Acid Lactic Acid F/U @ 2Hr Calcium 7.9 L Phosphorus Magnesium 1.8 Total Bilirubin 6.3 H AST 147 H ALT 38 Alkaline Phosphatase 193 H Ammonia 77 H Troponin I High Sens B-Natriuretic Peptide Total Protein 6.5 Albumin 3.4 L Procalcitonin Urine Color Urine Appearance Urine pH Ur Specific [place] Urine Protein Urine Glucose (UA) Urine Ketones Urine Blood Urine Nitrite Ur Leukocyte Esterase Ur Random Sodium Peritoneal WBC Peritoneal RBC Periton Neutrophils Periton Lymphocytes Peritoneal Monocytes Urine Opiates Screen Ur Buprenorphine Scrn Ur Oxycodone Screen Urine Methadone Screen Urine Fentanyl Screen Ur Barbiturates Screen Ur Phencyclidine Scrn Ur Amphetamines Screen U Benzodiazepines Scrn Urine Cocaine Screen U Marijuana (THC) Screen Ethyl Alcohol Progress Note: A&P Assessment and plan (1) Acute hypoxemic respiratory failure: Status: Acute (2) Pneumonia: Status: Acute (3) Acute hepatic encephalopathy: Status: Acute Plan Patient is a 57 Y M with COPD, KD, insulin-dependent DM, CAD s/p stent placements, alcohol misuse, and prior episodes of angioedema d/t pineapples, presented to ED on 09/09 w/ dyspnea, found to be in acute hypoxic respiratory failure; ED work-up suggestive of pneumonia N: encephalopathy, likely toxic-metabolic, d/t infection, hyperammonemia; lactulose PO; daily alcohol misuse; CIWA protocol CV: no acute issues; CAD R: c/f pneumonia, c/b acute hypoxic respiratory failure, on HFNC, wean as tolerated; to monitor airway; COPD, KD GI: PO; acute on chronic transaminitis; to monitor H: thrombocytopenia; to hold chemical DVT prophylaxis in setting of thrombocytopenia ID: c/f pneumonia, on levofloxacin, metronidazole; to follow-up blood cultures E: insulin-dependent DM; to monitor hypo-/hyper-glycemia S: daily updates given to healthcare proxy and Quality Stroke Does the patient have a stroke diagnosis?: No VTE Prior VTE?: No VTE Risk Level:: Medical - moderate - high VTE Device Contraindication: N/A - Device Ordered VTE Drug Contraindication: N/A - Med Ordered
[2023-09-11] MEDS: Insulin Lispro 100 UNIT/ML 3 ML VIAL SUBCUT ×4 (07:49→20:49)
[2023-09-11] MEDS: Albuterol/Iprat 2.5/0.5MG 3 ML AMPUL.NEB INHALE ×4 (07:56→19:07)
[2023-09-11] MEDS: Furosemide 20 MG/2 ML VIAL 10 MG IVPUSH (08:49)
[2023-09-11] MEDS: methylPREDNISolone Sod Succ 40 MG/ML VIAL IVPUSH ×2 (08:49→19:45)
[2023-09-11] MEDS: Calcium Gluconate/NaCl,Iso-Osm 1 GM/50 ML PLAST..BAG IV (08:49)
[2023-09-11] MEDS: Folic Acid 1 MG in 0.9 % Sodium Chloride 50 ML 100.4 MG IV (08:55)
[2023-09-11 09:06] LABS: Basophils Percent Auto 0.2 % (0-2); Imm Gran Abs Auto 0.04 X10*3/uL (0.00-0.03); Imm Gran Pct Auto 0.7 % (0.0-0.4); Lymphocytes Absolute Auto 0.4 X10*3/uL (1.2-4.9); Lymphocytes Percent Auto 7.7 % (20-40); MANUAL DIFF FLAG NO; Monocytes Absolute Auto 0.6 X10*3/uL (0.1-1.2); Monocytes Percent Auto 10.6 % (2-11); Neutrophils Absolute Auto 4.4 x10*3/uL (2.0-8.3); Neutrophils Percent Auto 80.8 % (45-73)
[2023-09-11] MEDS: rifAXIMin 550 MG TABLET PO ×2 (09:09→20:49)
[2023-09-11] MEDS: Nystatin Cream 15 GM TUBE 1 APPL TOPICAL ×2 (09:09→20:57)
[2023-09-11] MEDS: Aspirin 81 MG TAB.CHEW PO (09:09)
[2023-09-11] MEDS: Thiamine HCL 100 MG in 0.9 % Sodium Chloride 100 ML 202 MG IV (09:49)
--- NOTE | 2023-09-11 09:49 | W.MHC.ACPN ---
Advanced Care Planning Note Advanced Care Planning Note Discussed with: patient and family member(s) Time spent (in minutes): 15 Narrative: Upon evaluation, Mr. Weber intermittently answers yes-no questions appropriately with significant prompting. However, Mr. Weber is unable to participate in higher-level thinking. I spoke with Ms. Weber at the bedside this AM. I offered her updates and clarifications. She expressed understanding of both Mr. Weber's chronic and acute illnesses. We discussed code status. Ms. Weber reports she and Mr. Weber have discussed code status many times, and Mr. Weber has clearly stated he would not want intubation/ventilation again. Moreover, Mr. Weber reports he would not want non-invasive ventilation as well. Ms. Weber reports they have not spoken in detail about resuscitation. I encouraged her to speak with Mr. Weber if she feels he can engage in conversation. Mr. Weber's code status was changed to DNI. A molst form was signed. Problems Discussed (1) Acute hypoxemic respiratory failure: (2) Pneumonia: (3) Acute hepatic encephalopathy:
[2023-09-11 11:38] LABS: Glucose, Whole Blood 152 mg/dL (60-115)
[2023-09-11] MEDS: levoFLOXacin/D5W 750 MG/150 ML PIGGYBACK 100 MG IV (12:12)
--- NOTE | 2023-09-11 14:13 | MHC.CM.PN ---
Met w/pt to discuss d/c planning needs: pt resides w/spouse and has skilled RN visits by [facility]. He states he is minimally mobile at baseline, does not have additional DME or other services. Referred pt back to [facility] for continuation of skilled RN visits: Spouse (Elham) to transport. IMM in chart, HCP on file and verified. CM to follow for changes in d/c plan
[2023-09-11 16:07] LABS: Glucose, Whole Blood 184 mg/dL (60-115)
--- NOTE | 2023-09-11 16:12 | HO.WOUND ---
Wound Consult: Initial 57yr old?Male admitted to [facility] on 09/10/23 - See progress notes and H&P for detailed history.? Wound consult placed for Buttock and Bilateral Toes. Bilateral toes assessed minor dry stable scabs noted - no drainage fluctuance or induration noted. May paint with betadine to keep stable. Buttocks photo reviewed but limited mobility and staff not available for reposition from photo review and chart review MASD (Moisture Associated Skin Damage) is noted. Recommend barrier cream to protect tissue from Moisture and friction. Recommendations: 1. Turn and Reposition every 2 hours and as needed for patient comfort.? Use pillows or wedges to support off loading positions. 2. Off Load all bony prominences with use of pillows and heel boots if needed.? Apply Preventative foams where needed. ? 3. Monitor for incontinence and moisture control, use barrier creams when needed for prevention and treatment. 4. Provide adequate and supplemental nutrition.? 5. Order or Continue low air loss mattress. 6. When applicable maintain blood glucose levels per Providers order. 7. Bilateral Toes - [place] with Betadine - leave open to air. 8. Buttock - Off Load Pressure - Cleanse with PH balance spray or wipes, pat dry. ?Apply thin layer of barrier cream to red tissue - apply twice daily and PRN after each episode of incontinence. Re-consult wound care Nurse for wound deterioration or wound changes.
[2023-09-11 20:33] LABS: Glucose, Whole Blood 164 mg/dL (60-115)
[2023-09-11] MEDS: Atorvastatin Calcium 40 MG TABLET PO (20:49)
[2023-09-12] VITALS (10 sets, daily range): BP systolic 119–154; BP diastolic 64–79; PULSE 85–109; RESP 17–20; TEMP 36.2–37.5; O2SAT 91–95; BMI 34.7
[2023-09-12] MEDS: metroNIDAZOLE/NS 500 MG/100 ML PIGGYBACK 100 MG IV (04:10)
[2023-09-12 07:34] LABS: Glucose, Whole Blood 172 mg/dL (60-115)
[2023-09-12] MEDS: Albuterol/Iprat 2.5/0.5MG 3 ML AMPUL.NEB INHALE ×4 (07:52→20:01)
[2023-09-12 07:58] LABS: MANUAL DIFF FLAG NO
[2023-09-12 08:18] LABS: Eosinophils Percent Auto 0.4 % (0-4); Hemoglobin 11.9 g/dl (14.0-18.0); Imm Gran Abs Auto 0.02 X10*3/uL (0.00-0.03); Imm Gran Pct Auto 0.4 % (0.0-0.4); Lymphocytes Absolute Auto 0.7 X10*3/uL (1.2-4.9); Lymphocytes Percent Auto 15.7 % (20-40); Mean Corpuscular Hemoglobin 38.6 pg (27.0-33.0); Mean Corpuscular Volume 113.6 fL (80.0-98.0); Mean Platelet Volume 11.3 fL (9.4-12.4); Monocytes Absolute Auto 0.5 X10*3/uL (0.1-1.2); Monocytes Percent Auto 11.6 % (2-11); NRBC Pct Auto 0.4 /100WBC (0.0-0.2); Neutrophils Absolute Auto 3.3 x10*3/uL (2.0-8.3); Neutrophils Percent Auto 71.9 % (45-73); Platelet Count 44 X10*3/uL (160-400); Red Blood Count 3.08 X10*6/uL (4.60-5.80); Red Cell Distribution Width 19.2 % (11.0-16.0); White Blood Count 4.6 X10*3/uL (4.8-10.8)
[2023-09-12 08:49] LABS: Anion Gap 16 (12-20); Blood Urea Nitrogen 10 mg/dL (9-16); Carbon Dioxide 32 mmol/L (22-29); Chloride 96 mmol/L (96-108); Creatinine Clr Calc Pharmacy 88.6; Estimated Glomerular Filt Rate > 60; Glucose Random 158 mg/dL (60-115); Magnesium 1.6 mg/dL (1.6-2.6); Sodium 142 mmol/L (135-145)
[2023-09-12 08:55] LABS: Potassium 2.3 mmol/L (3.3-5.1)
[2023-09-12 08:56] LABS: TSH reflex Free T4 2.48 uIU/mL (0.32-4.0)
[2023-09-12 10:06] LABS: Procalcitonin 0.14 ng/mL
--- NOTE | 2023-09-12 10:40 | HO.ADDICT_ITS ---
History of Present Illness Date of Service: 09/12/2023 Chief Complaint: Acute hypoxic respiratory failure Reason for Consult: Alcohol use disorder Sources of Information: patient interviewed and chart reviewed Additional Sources of Information: present during interview HPI Narrative: Patient is a 57 year old male with AUD, currently medically admitted with pneumonia Previous admissions related to alcohol use Long history of alcohol use---he reports he drinks 5 days per week, but his stated he drinks every day Patient minimizes alcohol use, but is forthcoming about longstanding use. 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 Feels that he has been decreasing his use and feels his has been helpful in that regard, sometimes not giving him more to drink when he has met his limit . Denies any withdrawal sx at this time and appears quite comfortable Review of Systems Constitutional: Reports as per HPI Diagnostics Vital Signs (24Hr): Vital Signs - 24 hr 09/11/23 11:00 09/11/23 11:04 09/11/23 11:16 Temperature Pulse Rate 80 82 Respiratory Rate 12 17 18 Blood Pressure 123/72 Pulse Oximetry 92 Oxygen Delivery Method High Flow Nasal Cannula Oxygen Flow Rate 35 Fraction of Inspired Oxygen 40 09/11/23 11:59 09/11/23 15:07 09/11/23 15:44 Temperature 98.1 F 98 F Pulse Rate 83 85 88 Respiratory Rate 15 20 18 Blood Pressure 115/67 130/75 Pulse Oximetry 95 94 Oxygen Delivery Method Oxygen Flow Rate 6 5 Fraction of Inspired Oxygen 09/11/23 19:07 09/11/23 19:38 09/11/23 23:49 Temperature 98.5 F 97.7 F Pulse Rate 88 84 82 Respiratory Rate 18 18 18 Blood Pressure 145/81 H 166/91 H Pulse Oximetry 100 96 Oxygen Delivery Method Nasal Cannula Nasal Cannula Oxygen Flow Rate 5 5 Fraction of Inspired Oxygen 09/12/23 03:56 09/12/23 07:22 09/12/23 07:55 Temperature 97.5 F 97.2 F Pulse Rate 88 85 85 Respiratory Rate 20 17 20 Blood Pressure 145/73 H 154/77 H Pulse Oximetry 94 94 Oxygen Delivery Method Nasal Cannula Nasal Cannula Oxygen Flow Rate 5 5 Fraction of Inspired Oxygen BMI result Body Mass Index 34.7 Labs 09/12/23 07:29 09/12/23 07:29 Labs: Laboratory Results - last 48 hr 09/10/23 09/10/23 09/10/23 11:12 11:24 11:28 WBC 7.3 RBC 3.53 L Hgb 13.8 L Hct 39.7 L MCV 112.5 H MCH 39.1 H MCHC 34.8 RDW 18.5 H Plt Count 87 L MPV 12.0 Immature Gran % (Auto) 0.5 H Neut % (Auto) 70.7 Lymph % (Auto) 14.2 L [place] % (Auto) 13.1 H Eos % (Auto) 0.7 Baso % (Auto) 0.8 Lymph # (Auto) 1.0 L [place] # (Auto) 1.0 Eos # (Auto) 0.1 Baso # (Auto) 0.1 Abs Immat Gran (auto) 0.04 H Absolute Neuts (auto) 5.2 Absolute Nucleated RBC 0.060 H Nucleated RBC % (auto) 0.8 H PT 14.7 H INR 1.2 H O2 Saturation ABG pH at Pt Temp ABG pCO2 at Pt Temp ABG pO2 at Pt Temp ABG HCO3 ABG Base Excess (Actual) VBG pH 7.45 H VBG pCO2 43 VBG pO2 79 VBG HCO3 30 H VBG O2 Saturation 94.0 VBG Base Excess 6.1 Sodium Potassium Chloride Carbon Dioxide Anion Gap BUN Creatinine Estim Creat Clear Calc Estimated GFR POC Glucose 128 H Random Glucose Lactic Acid 3.0 H* Lactic Acid F/U @ 2Hr Calcium Phosphorus Magnesium Total Bilirubin AST ALT Alkaline Phosphatase Ammonia Troponin I High Sens 16.7 B-Natriuretic Peptide 84 Total Protein Albumin Procalcitonin TSH Urine Color Urine Appearance Urine pH Ur Specific [place] Urine Protein Urine Glucose (UA) Urine Ketones Urine Blood Urine Nitrite Ur Leukocyte Esterase Ur Random Sodium Peritoneal WBC Peritoneal RBC [place] Neutrophils [place] Lymphocytes Peritoneal Monocytes Urine Opiates Screen Ur Buprenorphine Scrn Ur Oxycodone Screen Urine Methadone Screen Urine Fentanyl Screen Ur Barbiturates Screen Ur Phencyclidine Scrn Ur Amphetamines Screen U Benzodiazepines Scrn Urine Cocaine Screen U Marijuana (THC) Screen Ethyl Alcohol 09/10/23 09/10/23 09/10/23 11:45 11:51 16:10 WBC RBC Hgb Hct MCV MCH MCHC RDW Plt Count MPV Immature Gran % (Auto) Neut % (Auto) Lymph % (Auto) [place] % (Auto) Eos % (Auto) Baso % (Auto) Lymph # (Auto) [place] # (Auto) Eos # (Auto) Baso # (Auto) Abs Immat Gran (auto) Absolute Neuts (auto) Absolute Nucleated RBC Nucleated RBC % (auto) PT INR O2 Saturation ABG pH at Pt Temp ABG pCO2 at Pt Temp ABG pO2 at Pt Temp ABG HCO3 ABG Base Excess (Actual) VBG pH VBG pCO2 VBG pO2 VBG HCO3 VBG O2 Saturation VBG Base Excess Sodium 138 Potassium 2.0 L* D Chloride 89 L Carbon Dioxide 29 Anion Gap 22 H BUN 13 Creatinine 1.43 H Estim Creat Clear Calc 74.8 Estimated GFR 51 POC Glucose Random Glucose 118 H Lactic Acid Lactic Acid F/U @ 2Hr Calcium 7.8 L D Phosphorus Magnesium 1.2 L* Total Bilirubin 5.1 H AST 169 H ALT 46 H Alkaline Phosphatase 214 H Ammonia 156 H Troponin I High Sens B-Natriuretic Peptide Total Protein 6.3 L Albumin 2.6 L Procalcitonin 0.31 TSH Urine Color Dark Yellow Urine Appearance Clear Urine pH 5.5 Ur Specific [place] 1.010 Urine Protein Negative Urine Glucose (UA) Negative Urine Ketones Trace Urine Blood Negative Urine Nitrite Negative Ur Leukocyte Esterase Negative Ur Random Sodium 36.0 Peritoneal WBC 0.172 Peritoneal RBC < 0.002 [place] Neutrophils 6 [place] Lymphocytes 28 Peritoneal Monocytes 66 Urine Opiates Screen Not Detected Ur Buprenorphine Scrn Not Detected Ur Oxycodone Screen Not Detected Urine Methadone Screen Not Detected Urine Fentanyl Screen Not Detected Ur Barbiturates Screen Not Detected Ur Phencyclidine Scrn Not Detected Ur Amphetamines Screen Not Detected U Benzodiazepines Scrn Not Detected Urine Cocaine Screen Not Detected U Marijuana (THC) Screen Not Detected Ethyl Alcohol < 10 09/10/23 09/10/23 09/10/23 16:58 17:02 17:04 WBC RBC Hgb Hct MCV MCH MCHC RDW Plt Count MPV Immature Gran % (Auto) Neut % (Auto) Lymph % (Auto) [place] % (Auto) Eos % (Auto) Baso % (Auto) Lymph # (Auto) [place] # (Auto) Eos # (Auto) Baso # (Auto) Abs Immat Gran (auto) Absolute Neuts (auto) Absolute Nucleated RBC Nucleated RBC % (auto) PT INR O2 Saturation 92.0 ABG pH at Pt Temp 7.43 ABG pCO2 at Pt Temp 42 ABG pO2 at Pt Temp 75 L ABG HCO3 27 H ABG Base Excess (Actual) 3.3 VBG pH VBG pCO2 VBG pO2 VBG HCO3 VBG O2 Saturation VBG Base Excess Sodium 139 Potassium 2.3 L* Chloride 91 L Carbon Dioxide 29 Anion Gap 21 H BUN 12 Creatinine 1.38 Estim Creat Clear Calc 77.6 Estimated GFR 53 POC Glucose 121 H Random Glucose 117 H Lactic Acid Lactic Acid F/U @ 2Hr 1.1 Calcium 7.8 L Phosphorus 2.4 L Magnesium 1.6 Total Bilirubin AST ALT Alkaline Phosphatase Ammonia Troponin I High Sens B-Natriuretic Peptide Total Protein Albumin Procalcitonin TSH Urine Color Urine Appearance Urine pH Ur Specific [place] Urine Protein Urine Glucose (UA) Urine Ketones Urine Blood Urine Nitrite Ur Leukocyte Esterase Ur Random Sodium Peritoneal WBC Peritoneal RBC [place] Neutrophils [place] Lymphocytes Peritoneal Monocytes Urine Opiates Screen Ur Buprenorphine Scrn Ur Oxycodone Screen Urine Methadone Screen Urine Fentanyl Screen Ur Barbiturates Screen Ur Phencyclidine Scrn Ur Amphetamines Screen U Benzodiazepines Scrn Urine Cocaine Screen U Marijuana (THC) Screen Ethyl Alcohol 09/10/23 09/11/23 09/11/23 20:47 00:59 01:05 WBC RBC Hgb Hct MCV MCH MCHC RDW Plt Count MPV Immature Gran % (Auto) Neut % (Auto) Lymph % (Auto) [place] % (Auto) Eos % (Auto) Baso % (Auto) Lymph # (Auto) [place] # (Auto) Eos # (Auto) Baso # (Auto) Abs Immat Gran (auto) Absolute Neuts (auto) Absolute Nucleated RBC Nucleated RBC % (auto) PT INR O2 Saturation ABG pH at Pt Temp ABG pCO2 at Pt Temp ABG pO2 at Pt Temp ABG HCO3 ABG Base Excess (Actual) VBG pH 7.44 H VBG pCO2 38 VBG pO2 93 VBG HCO3 26 VBG O2 Saturation 98.0 VBG Base Excess 2.5 Sodium 139 Potassium 2.5 L* Chloride 92 L Carbon Dioxide 24 Anion Gap 26 H BUN 13 Creatinine 1.42 H Estim Creat Clear Calc 75.4 Estimated GFR 51 POC Glucose 151 H Random Glucose 157 H Lactic Acid Lactic Acid F/U @ 2Hr Calcium 7.9 L Phosphorus 3.0 Magnesium 1.6 Total Bilirubin AST ALT Alkaline Phosphatase Ammonia Troponin I High Sens B-Natriuretic Peptide Total Protein Albumin 3.5 Procalcitonin TSH Urine Color Urine Appearance Urine pH Ur Specific [place] Urine Protein Urine Glucose (UA) Urine Ketones Urine Blood Urine Nitrite Ur Leukocyte Esterase Ur Random Sodium Peritoneal WBC Peritoneal RBC [place] Neutrophils Per[place] Lymphocytes Peritoneal Monocytes Urine Opiates Screen Ur Buprenorphine Scrn Ur Oxycodone Screen Urine Methadone Screen Urine Fentanyl Screen Ur Barbiturates Screen Ur Phencyclidine Scrn Ur Amphetamines Screen U Benzodiazepines Scrn Urine Cocaine Screen U Marijuana (THC) Screen Ethyl Alcohol 09/11/23 09/11/23 09/11/23 05:16 07:35 11:35 WBC 5.4 RBC 3.08 L Hgb 11.8 L Hct 35.4 L MCV 114.9 H MCH 38.3 H MCHC 33.3 RDW 18.8 H Plt Count 52 L D MPV 11.2 Immature Gran % (Auto) 0.7 H Neut % (Auto) 80.8 H Lymph % (Auto) 7.7 L [place] % (Auto) 10.6 Eos % (Auto) 0.0 Baso % (Auto) 0.2 Lymph # (Auto) 0.4 L [place] # (Auto) 0.6 Eos # (Auto) 0.0 Baso # (Auto) 0.0 Abs Immat Gran (auto) 0.04 H Absolute Neuts (auto) 4.4 Absolute Nucleated RBC 0.040 H Nucleated RBC % (auto) 0.7 H PT 15.0 H INR 1.2 H O2 Saturation ABG pH at Pt Temp ABG pCO2 at Pt Temp ABG pO2 at Pt Temp ABG HCO3 ABG Base Excess (Actual) VBG pH 7.47 H VBG pCO2 29 VBG pO2 71 VBG HCO3 21 L VBG O2 Saturation 92.0 VBG Base Excess -0.8 Sodium 140 Potassium 2.5 L* Chloride 92 L Carbon Dioxide 24 Anion Gap 27 H BUN 13 Creatinine 1.41 H Estim Creat Clear Calc 73.8 Estimated GFR 51 POC Glucose 159 H 152 H Random Glucose 165 H Lactic Acid Lactic Acid F/U @ 2Hr Calcium 7.9 L Phosphorus Magnesium 1.8 Total Bilirubin 6.3 H AST 147 H ALT 38 Alkaline Phosphatase 193 H Ammonia 77 H Troponin I High Sens B-Natriuretic Peptide Total Protein 6.5 Albumin 3.4 L Procalcitonin TSH Urine Color Urine Appearance Urine pH Ur Specific [place] Urine Protein Urine Glucose (UA) Urine Ketones Urine Blood Urine Nitrite Ur Leukocyte Esterase Ur Random Sodium Peritoneal WBC Peritoneal RBC [place] Neutrophils [place] Lymphocytes Peritoneal Monocytes Urine Opiates Screen Ur Buprenorphine Scrn Ur Oxycodone Screen Urine Methadone Screen Urine Fentanyl Screen Ur Barbiturates Screen Ur Phencyclidine Scrn Ur Amphetamines Screen U Benzodiazepines Scrn Urine Cocaine Screen U Marijuana (THC) Screen Ethyl Alcohol 09/11/23 09/11/23 09/12/23 16:03 20:14 07:29 WBC 4.6 L RBC 3.08 L Hgb 11.9 L Hct 35.0 L MCV 113.6 H MCH 38.6 H MCHC 34.0 RDW 19.2 H Plt Count 44 L MPV 11.3 Immature Gran % (Auto) 0.4 Neut % (Auto) 71.9 Lymph % (Auto) 15.7 L [place] % (Auto) 11.6 H Eos % (Auto) 0.4 Baso % (Auto) 0.0 Lymph # (Auto) 0.7 L [place] # (Auto) 0.5 Eos # (Auto) 0.0 Baso # (Auto) 0.0 Abs Immat Gran (auto) 0.02 Absolute Neuts (auto) 3.3 Absolute Nucleated RBC 0.020 H Nucleated RBC % (auto) 0.4 H PT INR O2 Saturation ABG pH at Pt Temp ABG pCO2 at Pt Temp ABG pO2 at Pt Temp ABG HCO3 ABG Base Excess (Actual) VBG pH VBG pCO2 VBG pO2 VBG HCO3 VBG O2 Saturation VBG Base Excess Sodium 142 Potassium 2.3 L* Chloride 96 Carbon Dioxide 32 H Anion Gap 16 BUN 10 Creatinine 1.18 Estim Creat Clear Calc 88.6 Estimated GFR > 60 POC Glucose 184 H 164 H 172 H Random Glucose 158 H Lactic Acid Lactic Acid F/U @ 2Hr Calcium 8.0 L Phosphorus 2.0 L Magnesium 1.6 Total Bilirubin AST ALT Alkaline Phosphatase Ammonia Troponin I High Sens B-Natriuretic Peptide Total Protein Albumin Procalcitonin 0.14 TSH 2.48 Urine Color Urine Appearance Urine pH Ur Specific [place] Urine Protein Urine Glucose (UA) Urine Ketones Urine Blood Urine Nitrite Ur Leukocyte Esterase Ur Random Sodium Peritoneal WBC Peritoneal RBC [place] Neutrophils [place] Lymphocytes Peritoneal Monocytes Urine Opiates Screen Ur Buprenorphine Scrn Ur Oxycodone Screen Urine Methadone Screen Urine Fentanyl Screen Ur Barbiturates Screen Ur Phencyclidine Scrn Ur Amphetamines Screen U Benzodiazepines Scrn Urine Cocaine Screen U Marijuana (THC) Screen Ethyl Alcohol Imaging Radiology Impressions: ITS Impressions Chest X-Ray 09/10/23 12:02 IMPRESSION: Subsegmental atelectasis in the lower lobes and right middle lobe. No acute pulmonary findings. Head CT 09/10/23 13:01 IMPRESSION: 1. Unchanged age related cerebral atrophy and ventriculomegaly. 2. No intracranial hemorrhage or skull fracture is seen. 3. No evidence of space occupying lesion could be found. 4. The current plain CT scan of the brain shows no diagnostic evidence of acute cerebral infarction. 5. Unchanged chronic medial left orbital wall fracture with protrusion of orbital fat into left ethmoid sinus. 6. Unchanged asymmetric sclerotic right mastoid process. Abdomen/Pelvis CT 09/10/23 13:05 IMPRESSION: Enlarged fatty liver. Distended gallbladder. No gallstones seen by CT. Small amount of ascites. New pancreatic cysts. These may represent pseudocysts from prior pancreatitis. No evidence of acute pancreatitis. Diffuse wall thickening and edema of the colon suggestive of pancolitis. Fleischner guidelines were followed. Chest CTA 09/10/23 13:05 IMPRESSION: Limited exam due to motion artifact. No evidence of large or central pulmonary embolism. Evaluation of smaller segmental and subsegmental pulmonary arteries limited, particularly at the right lung base. Elevated eventrated right hemidiaphragm and adjacent atelectasis or small infiltrate of the right middle and right lower lobes increased from previous exam. VTE: Mental Status Exam Mental Status Exam Level of Consciousness: Awake, Appropriate and Alert Patient Behavior: Talkative Mood Description: Cheerful Affect Description: Cheerful Speech Pattern: Clear Thought Content: positive for Circumstantial and positive for Tangential Medications Medications Current Medications Albuterol Sulfate (Albuterol Sulfate (0.083%) 2.5 Mg/3 Ml Vial.Neb) 2.5 mg INHALE Q2H PRN PRN Reason: Shortness of Breath/Wheezing Albuterol/Ipratropium (Albuterol/Iprat 2.5/0.5mg 3 Ml Ampul.Neb) 3 ml INHALE RQ4H WHILE AWAKE [facility] Last Admin: 09/12/23 07:52 Dose: 3 ml Aspirin (Aspirin 81 Mg Tab.Chew) 81 mg PO DAILY [facility] Last Admin: 09/11/23 09:09 Dose: 81 mg Atorvastatin Calcium (Atorvastatin Calcium 40 Mg Tablet) 40 mg PO BEDTIME [facility] Last Admin: 09/11/23 20:49 Dose: 40 mg Furosemide (Furosemide 20 Mg/2 Ml Vial) 10 mg IVPUSH DAILY [facility]; Protocol Last Admin: 09/11/23 08:49 Dose: 10 mg Glucose (Glucose Gel 15 Gm Gel..Gram.) 15 gm PO Q15M PRN; Protocol PRN Reason: per Hypoglycemia Standing Ord. Dextrose (D10) 250 mls @ 750 mls/hr IV Q15M PRN; Protocol PRN Reason: per Hypoglycemia Standing Ord. Thiamine HCl 100 mg/ Sodium (Chloride) 101 mls @ 202 mls/hr IV DAILY [facility] Last Infusion: 09/11/23 10:29 Dose: Infused Levofloxacin (Levaquin) 750 mg in 150 mls @ 100 mls/hr IV Q24H [facility] Last Infusion: 09/11/23 13:52 Dose: Infused Folic Acid 1 mg/ Sodium (Chloride) 50.2 mls @ 100.4 mls/hr IV DAILY [facility] Last Infusion: 09/11/23 09:55 Dose: Infused Potassium Phosphate (Kphos) 15 mmol in 250 mls @ 62.5 mls/hr IV Q4H [facility] Stop: 09/13/23 01:14 Insulin Human Lispro (Insulin Lispro 100 Unit/Ml 3 Ml Vial) 0 unit SUBCUT QIDACHS [facility]; Protocol Last Admin: 09/11/23 20:49 Dose: 2 unit Lactulose (Lactulose 20 Gm/30 Ml Solution) 20 gm PO QID [facility] Last Admin: 09/11/23 20:49 Dose: 20 gm Methylprednisolone Sodium Succinate (Methylprednisolone Sod Succ 40 Mg/Ml Vial) 40 mg IVPUSH Q12H [facility] Last Admin: 09/11/23 19:45 Dose: 40 mg Metronidazole (Metronidazole 500 Mg Tablet) 500 mg PO Q8H [facility] Nystatin (Nystatin Cream 15 Gm Tube) 1 appl TOPICAL BID [facility]; Protocol Last Admin: 09/11/23 20:57 Dose: 1 appl Pharmacy Consult (Consult Rx Etoh Phenob Im/Po) 1 each MISCELLANE ONCE PRN; Protocol PRN Reason: Consult order Phenobarbital (Phenobarbital 30 Mg Tablet) 60 mg PO BID [facility] Last Admin: 09/11/23 09:33 Dose: Not Given Phenobarbital (Phenobarbital 30 Mg Tablet) 30 mg PO BID [facility] Phenobarbital (Phenobarbital 15 Mg Tablet) 15 mg PO DAILY [facility] Phenobarbital Sodium (Phenobarbital Sodium 130 Mg/Ml Vial Im Q3hx2) 349 mg IM Q3H [facility] Last Admin: 09/10/23 16:42 Dose: Not Given Rifaximin (Rifaximin 550 Mg Tablet) 550 mg PO BID [facility] Last Admin: 09/11/23 20:49 Dose: 550 mg Sodium Chloride (0.9 % Sodium Chloride Flush 3 Ml Syringe) 3 ml IVFLUSH QSHIFT [facility] Last Admin: 09/11/23 19:46 Dose: 3 ml Allergies Allergies Allergy/AdvReac Type Severity Reaction Status Date / Time cyclobenzaprine Allergy Unknown RASH Verified 09/10/23 11:17 [From FLEXERIL] penicillin V Allergy Unknown anaphylaxis Verified 09/10/23 11:17 pineapple Allergy Unknown Unknown Verified 09/10/23 11:17 FADIA Inhibitors AdvReac Severe Angioedema Verified 09/10/23 11:17 Assessment & Plan Assessment & Plan (1) Alcohol use disorder, severe, dependence: Status: Acute Code(s): F10.20 - Alcohol dependence, uncomplicated Assessment and Plan: * abstinence from alcohol does not appear to be his goal, so we reinforced any decrease or diluting of vodka when he does drink * no questions from patient or --no follow up indicated at this time * no follow up indicated Total time managing care of this patient today _30___ minutes. [facility] Past Medical History Medical History Thrombocytopenia Pneumonia COPD (chronic obstructive pulmonary disease) Diabetes Nicotine dependence, cigarettes, uncomplicated Tracheostomy care Respiratory failure Diastolic CHF Seizure disorder History of TIA (transient ischemic attack) History of hepatitis C CAD (coronary artery disease) HTN (hypertension) Insulin dependent type 2 diabetes mellitus Diabetic neuropathy Restrictive airway disease KD (obstructive sleep apnea) ETOH abuse Morbid obesity Transaminitis Fatty liver History of colon polyps Obesity Microalbuminuria Foot ulcer, left Fracture of right tibia and fibula Metatarsal bone fracture Family History Family History Father CVD (cardiovascular disease) Colon cancer Mother No problems noted. Brother Liver cancer Paternal Aunt Colon cancer Surgical History Surgical History History of surgery on lower extremity (~2019) History of lumbar spinal fusion History of colonoscopy (~2018) History of hernia repair History of cardiac catheterization (~2018) Social History Social History Household Members: Spouse Household Members Other:: Housing: House Do you presently have visiting nurse or other home services: Yes Unable to assess alcohol history related to: Unable to respond Alcohol intake: current Alcohol intake frequency: 3 or more drinks per day Alcohol type: beer and hard liquor Patient Tobacco Use Status: Never used Tobacco Tobacco use type: Cigarette Years Smoked: onset 18yo, 1-2ppd x 37yrsm now 1/2ppd - 48pyh Smoked in Last 30 Days: Yes Second Hand Smoke Exposure: Yes Use of substances other than those prescribed or required for medical reasons: Unable to respond Substance Use Type: Marijuana Currently Displaying Signs/Symptoms of Drug Intoxication Withdrawal: No Advance Directives: Yes Advance Directives on File: Yes Advance Directives Date on File: 03/20/22 Do you have a plan to hurt others: No Plan Nutrition Risks: No Nutritional Risk Poor oral hygiene: Yes service: No Current occupational status: disabled Current occupation: right handed Cognitive needs: No Hearing needs: No Vision needs: No
[2023-09-12] MEDS: rifAXIMin 550 MG TABLET PO ×2 (11:11→21:19)
[2023-09-12] MEDS: Furosemide 20 MG/2 ML VIAL 10 MG IVPUSH (11:11)
[2023-09-12] MEDS: methylPREDNISolone Sod Succ 40 MG/ML VIAL IVPUSH (11:11)
[2023-09-12] MEDS: Potassium Chloride ER 20 MEQ TAB.ER.PRT 40 MEQ PO (11:11)
[2023-09-12] MEDS: Lactulose 20 GM/30 ML SOLUTION PO ×4 (11:11→21:19)
[2023-09-12] MEDS: Aspirin 81 MG TAB.CHEW PO (11:11)
[2023-09-12] MEDS: metroNIDAZOLE 500 MG TABLET PO ×2 (11:11→21:19)
[2023-09-12] MEDS: levoFLOXacin/D5W 750 MG/150 ML PIGGYBACK 100 MG IV (11:12)
[2023-09-12] MEDS: Thiamine HCL 100 MG in 0.9 % Sodium Chloride 100 ML 202 MG IV (11:13)
[2023-09-12] MEDS: Nystatin Cream 15 GM TUBE 1 APPL TOPICAL ×2 (11:14→21:23)
[2023-09-12] MEDS: Insulin Lispro 100 UNIT/ML 3 ML VIAL SUBCUT ×4 (11:14→21:19)
[2023-09-12] MEDS: 0.9 % Sodium Chloride Flush 3 ML SYRINGE IVFLUSH ×2 (11:15→18:20)
[2023-09-12] MEDS: Potassium Phosphate/NS 15 MMOL/250 ML PLAST..BAG 62.5 MMOL IV ×2 (11:47→21:15)
[2023-09-12 11:50] LABS: Glucose, Whole Blood 223 mg/dL (60-115)
--- NOTE | 2023-09-12 12:10 | HO.PM.IMPN ---
Subjective Subjective Date of Service: 09/12/23 Interval History: stepped down from ICU yesterday, weaned from HFNC to NC and now on 3L dyspnea improved no abd pain denies diarrhea denies any withdrawal symptoms Review of Systems Review of Systems: Yes all other systems are reviewed and are negative Physical Exam Vital Signs: Vital Signs: Last Vital Signs Temp 97.8 F 09/12/23 11:17 Pulse 103 H 09/12/23 11:30 Resp 20 09/12/23 11:30 BP 123/79 09/12/23 11:17 Pulse Ox 92 09/12/23 11:17 O2 Del Method Room Air 09/12/23 11:17 O2 Flow Rate 5 09/12/23 07:22 FiO2 40 09/11/23 11:00 Oxygen Flow Rate 6 09/10/23 11:13 BMI result Body Mass Index 34.7 Gen: in no acute distress HEENT: sclera icteric, moist mucus membranes Neck: supple Lungs: diminished Heart: slightly tachycardic, regular, no murmurs Abd: soft, ascites present, no leak at paracentesis site, no tenderness Ext: 1+ edema Skin: warm/well-perfused Neuro: alert and oriented x3, no focal findings, no asterixis Psych: appropriate affect Objective Data Active Medications Albuterol Sulfate (Albuterol Sulfate (0.083%) 2.5 Mg/3 Ml Vial.Neb) 2.5 mg INHALE Q2H PRN PRN Reason: Shortness of Breath/Wheezing Albuterol/Ipratropium (Albuterol/Iprat 2.5/0.5mg 3 Ml Ampul.Neb) 3 ml INHALE RQ4H WHILE AWAKE [facility]ENDING [facility] TO [facility] Last Admin: 09/12/23 11:28 Dose: 3 ml Documented By: GWYN Aspirin (Aspirin 81 Mg Tab.Chew) 81 mg PO DAILY [facility] Last Admin: 09/12/23 11:11 Dose: 81 mg Documented By: RENEA Atorvastatin Calcium (Atorvastatin Calcium 40 Mg Tablet) 40 mg PO BEDTIME [facility] Last Admin: 09/11/23 20:49 Dose: 40 mg Documented By: AUGUSTINE Furosemide (Furosemide 20 Mg/2 Ml Vial) 10 mg IVPUSH DAILY [facility]; Protocol Last Admin: 09/12/23 11:11 Dose: 10 mg Documented By: RENEA Glucose (Glucose Gel 15 Gm Gel..Gram.) 15 gm PO Q15M PRN; Protocol PRN Reason: per Hypoglycemia Standing Ord. Dextrose (D10) 250 mls @ 750 mls/hr IV Q15M PRN; Protocol PRN Reason: per Hypoglycemia Standing Ord. Thiamine HCl 100 mg/ Sodium (Chloride) 101 mls @ 202 mls/hr IV DAILY [facility] Last Admin: 09/12/23 11:13 Dose: 202 mls/hr Documented By: RENEA Levofloxacin (Levaquin) 750 mg in 150 mls @ 100 mls/hr IV Q24H [facility] Last Admin: 09/12/23 11:12 Dose: 100 mls/hr Documented By: RENEA Folic Acid 1 mg/ Sodium (Chloride) 50.2 mls @ 100.4 mls/hr IV DAILY [facility] Last Infusion: 09/11/23 09:55 Dose: Infused Documented By: DELMY Potassium Phosphate (Kphos) 15 mmol in 250 mls @ 62.5 mls/hr IV Q4H [facility] Stop: 09/13/23 01:14 Last Admin: 09/12/23 11:47 Dose: 62.5 mls/hr Documented By: RENEA Insulin Human Lispro (Insulin Lispro 100 Unit/Ml 3 Ml Vial) 0 unit SUBCUT QIDACHS [facility]; Protocol Last Admin: 09/12/23 11:14 Dose: 2 unit Documented By: RENEA Lactulose (Lactulose 20 Gm/30 Ml Solution) 20 gm PO QID [facility] Last Admin: 09/12/23 11:11 Dose: 20 gm Documented By: RENEA Methylprednisolone Sodium Succinate (Methylprednisolone Sod Succ 40 Mg/Ml Vial) 40 mg IVPUSH Q12H [facility] Last Admin: 09/12/23 11:11 Dose: 40 mg Documented By: RENEA Metronidazole (Metronidazole 500 Mg Tablet) 500 mg PO Q8H [facility] Last Admin: 09/12/23 11:11 Dose: 500 mg Documented By: RENEA Nystatin (Nystatin Cream 15 Gm Tube) 1 appl TOPICAL BID [facility]; Protocol Last Admin: 09/12/23 11:14 Dose: 1 appl Documented By: RENEA Pharmacy Consult (Consult Rx Etoh Phenob Im/Po) 1 each MISCELLANE ONCE PRN; Protocol PRN Reason: Consult order Phenobarbital (Phenobarbital 30 Mg Tablet) 60 mg PO BID [facility] Last Admin: 09/11/23 09:33 Dose: Not Given Documented By: DELMY Non-Admin Reason: Patient Condition Contraindication Phenobarbital (Phenobarbital 30 Mg Tablet) 30 mg PO BID [facility] Phenobarbital (Phenobarbital 15 Mg Tablet) 15 mg PO DAILY [facility] Phenobarbital Sodium (Phenobarbital Sodium 130 Mg/Ml Vial Im Q3hx2) 349 mg IM Q3H [facility] Last Admin: 09/10/23 16:42 Dose: Not Given Documented By: KEYLA Non-Admin Reason: Physician Approved Rifaximin (Rifaximin 550 Mg Tablet) 550 mg PO BID [facility] Last Admin: 09/12/23 11:11 Dose: 550 mg Documented By: RENEA Sodium Chloride (0.9 % Sodium Chloride Flush 3 Ml Syringe) 3 ml IVFLUSH QSHIFT [facility] Last Admin: 09/12/23 11:15 Dose: 3 ml Documented By: RENEA Labs 09/12/23 07:29 09/12/23 07:29 Labs: Laboratory Results - last 24 hr 09/11/23 09/11/23 09/12/23 16:03 20:14 07:29 MCV 113.6 H MCH 38.6 H MCHC 34.0 RDW 19.2 H Plt Count 44 L MPV 11.3 Immature Gran % (Auto) 0.4 Neut % (Auto) 71.9 Lymph % (Auto) 15.7 L [place] % (Auto) 11.6 H Eos % (Auto) 0.4 Baso % (Auto) 0.0 Lymph # (Auto) 0.7 L [place] # (Auto) 0.5 Eos # (Auto) 0.0 Baso # (Auto) 0.0 Abs Immat Gran (auto) 0.02 Absolute Neuts (auto) 3.3 Absolute Nucleated RBC 0.020 H Nucleated RBC % (auto) 0.4 H Anion Gap 16 Estim Creat Clear Calc 88.6 Estimated GFR > 60 POC Glucose 184 H 164 H 172 H Random Glucose 158 H Calcium 8.0 L Phosphorus 2.0 L Magnesium 1.6 Procalcitonin 0.14 TSH 2.48 09/12/23 11:19 MCV MCH MCHC RDW Plt Count MPV Immature Gran % (Auto) Neut % (Auto) Lymph % (Auto) [place] % (Auto) Eos % (Auto) Baso % (Auto) Lymph # (Auto) [place] # (Auto) Eos # (Auto) Baso # (Auto) Abs Immat Gran (auto) Absolute Neuts (auto) Absolute Nucleated RBC Nucleated RBC % (auto) Anion Gap Estim Creat Clear Calc Estimated GFR POC Glucose 223 H Random Glucose Calcium Phosphorus Magnesium Procalcitonin TSH ITS Impressions Chest X-Ray 09/10/23 12:02 IMPRESSION: Subsegmental atelectasis in the lower lobes and right middle lobe. No acute pulmonary findings. Head CT 09/10/23 13:01 IMPRESSION: 1. Unchanged age related cerebral atrophy and ventriculomegaly. 2. No intracranial hemorrhage or skull fracture is seen. 3. No evidence of space occupying lesion could be found. 4. The current plain CT scan of the brain shows no diagnostic evidence of acute cerebral infarction. 5. Unchanged chronic medial left orbital wall fracture with protrusion of orbital fat into left ethmoid sinus. 6. Unchanged asymmetric sclerotic right mastoid process. Abdomen/Pelvis CT 09/10/23 13:05 IMPRESSION: Enlarged fatty liver. Distended gallbladder. No gallstones seen by CT. Small amount of ascites. New pancreatic cysts. These may represent pseudocysts from prior pancreatitis. No evidence of acute pancreatitis. Diffuse wall thickening and edema of the colon suggestive of pancolitis. Fleischner guidelines were followed. Chest CTA 09/10/23 13:05 IMPRESSION: Limited exam due to motion artifact. No evidence of large or central pulmonary embolism. Evaluation of smaller segmental and subsegmental pulmonary arteries limited, particularly at the right lung base. Elevated eventrated right hemidiaphragm and adjacent atelectasis or small infiltrate of the right middle and right lower lobes increased from previous exam. VTE: Microbiology Microbiology Results: Microbiology 09/10/23 16:10 Gram Stain - Final Abdominal Fluid Routine Culture - Preliminary No growth to date. Anaerobic Culture - Preliminary No growth to date. 09/10/23 11:36 Blood Culture - Preliminary Blood - Venous No growth after 24 hours. 09/10/23 11:22 Blood Culture - Preliminary Blood - Venous No growth after 24 hours. Assessment and Plan (1) Pneumonia: Status: Acute Plan hospital d3 57yo M with COPD, EtOH + HCV cirrhosis, seizure disorder, hx trachestomy, hx angioedema provoked by pineapples, diastolic HF, and DM2 who presented [place] [facility] [place] with acute dyspnea starting when he woke up the day of presentation. His visiting nurse called EMS and he was found to have labored breathing and hypoxia with RA SAo2 88%. En route, he was briefly on CPAP and bagged due to being unresponsive. In the ED, he was placed on HFNC. Initial BP in the ED 89/59. He was thrombocytopneic, mildly coagulopathic, and severely hypokalemic and hypomagnesemic as well as having RADHA, elevated birirubin, and transaminitis with AST>ALT. Notably, ammonia level was 156. Serum EtOH <10 and urine drug screen negative. Lactate was elevated to 3. He was given 100g of IV albumin. CT angio of the chest was limited by motion, but did not show any large PE. He did have a small infiltrate of the RML + RLL. CT of the abdomen and pelvis showed a small amount of ascites, distended gallbladder, enlarged fatty liver, new pancreatic cysts possibly suggestive of pseudocysts from prior pancreatitis, and teran-colitis. He was given levofloxacin and metronidazole, and a dose of methylprednisolone. BP improved to 107/64 after 5 mg of PO midodrine. He was given a dose of lactulose. He was also given potassium and magnesium. A paracentesis was done and 2.6L was removed and sent for fluid studies. Finally, he was loaded with phenobarbital IM but became extremely somnolent with concern for airway protection, so he was admitted to the ICU. In the ICU, he was managed with HFNC then weaned to NC and stepped down to the telemetry unit on 09/11/23. AHRF - wean O2 as tolerated PNA pancolitis - levofloxacin + metronidazole 09/09-, BCx negative, urinary antigens for Legionella and pneumococcus pendings, trend PCT RADHA - resolved with fluid resuscitation hypoK hypoPO4 - replete IV and recheck K in AM hypoMg - repleted COPD exacerbation - taper IV methylprednisolone -> PO prednisone, continue nebs ascites - cell count and culture negative for SBP - change IV to PO furosemide and add spironolactone; monitor BMPs hepatic encephalopathy - rifaximin + lactulose thrombocytopenia - due to cirrhosis + infection; monitor daily; avoid heparin EtOH hepatitis - monitor LFTs AUD, no withdrawal syndrome - hold further phenobarbital, give thiamine/folate/multivitamin. Addiction Medicine consulted. DM2 - alin-dose lispro VTE ppx - SCDs dispo - PT eval In my clinical judgment, the patient requires continued inpatient hospitalization for the following reasons: hypoxia, IV ABX Total time managing care of this patient today: 50 minutes. Quality Stroke Does the patient have a stroke diagnosis?: No VTE Prior VTE?: No VTE Risk Level:: Medical - moderate - high VTE Device Contraindication: N/A - Device Ordered VTE Drug Contraindication: N/A - Med Ordered
[2023-09-12 14:21] LABS: Albumin Peritoneal Fluid 0.5
[2023-09-12 14:26] LABS: LDH Peritoneal Fluid 127
[2023-09-12 14:27] LABS: Amylase Peritoneal Fluid 21; Glucose Peritoneal Fluid 127
--- NOTE | 2023-09-12 14:47 | MHC.CM.PN ---
EMR REVIEWED, PT ICU STEPDOWN, PT WILL NEED PT AND RECOVERY PRIOR TO DC, ANTIC DC HOME W/RESUMP OF [facility] PT IS MINIMALLY MOBILE AT BASELINE, CM WILL CONT TO FOLLOW DC NEEDS.
[2023-09-12 16:03] LABS: Glucose, Whole Blood 245 mg/dL (60-115)
[2023-09-12 20:30] LABS: Glucose, Whole Blood 268 mg/dL (60-115)
[2023-09-12] MEDS: Atorvastatin Calcium 40 MG TABLET PO (21:19)
[2023-09-13] VITALS (8 sets, daily range): BP systolic 128–146; BP diastolic 71–87; PULSE 88–104; RESP 17–20; TEMP 36.2–36.8; O2SAT 92–94; BMI 34.5
[2023-09-13] MEDS: Potassium Phosphate/NS 15 MMOL/250 ML PLAST..BAG 62.5 MMOL IV ×2 (01:39→05:58)
[2023-09-13] MEDS: Acetaminophen 325 MG TABLET 650 MG PO (02:01)
[2023-09-13] MEDS: metroNIDAZOLE 500 MG TABLET PO ×3 (06:00→21:42)
--- NOTE | 2023-09-13 06:36 | PC.NURSE ---
Patient had a 3 beat of Vtach. asymptomatic, provider notified. Patient resting comfortably. Will continue to monitor.
[2023-09-13 07:04] LABS: Glucose, Whole Blood 219 mg/dL (60-115)
[2023-09-13 07:33] LABS: MANUAL DIFF FLAG NO
[2023-09-13 07:54] LABS: Basophils Percent Auto 0.2 % (0-2); Eosinophils Absolute Auto 0.1 X10*3/uL (0.0-0.4); Hematocrit 37.7 % (42.0-52.0); Hemoglobin 12.9 g/dl (14.0-18.0); Imm Gran Abs Auto 0.03 X10*3/uL (0.00-0.03); Imm Gran Pct Auto 0.5 % (0.0-0.4); Lymphocytes Absolute Auto 0.7 X10*3/uL (1.2-4.9); Lymphocytes Percent Auto 12.5 % (20-40); Mean Corpuscular HGB Conc 34.2 g/dl (31.0-36.0); Mean Corpuscular Hemoglobin 39.2 pg (27.0-33.0); Mean Platelet Volume 11.6 fL (9.4-12.4); Monocytes Absolute Auto 0.8 X10*3/uL (0.1-1.2); Monocytes Percent Auto 13.3 % (2-11); NRBC Pct Auto 0.3 /100WBC (0.0-0.2); Neutrophils Absolute Auto 4.2 x10*3/uL (2.0-8.3); Neutrophils Percent Auto 72.5 % (45-73); Red Blood Count 3.29 X10*6/uL (4.60-5.80); Red Cell Distribution Width 19.5 % (11.0-16.0); White Blood Count 5.9 X10*3/uL (4.8-10.8)
[2023-09-13 08:01] LABS: Mean Corpuscular Volume 114.6 fL (80.0-98.0); Platelet Count 43 X10*3/uL (160-400)
[2023-09-13 08:10] LABS: Alanine Aminotransferase 38 U/L (0-40); Alkaline Phosphatase 212 U/L (39-117); Anion Gap 18 (12-20); Aspartate Amino Transferase 116 U/L (5-37); Bilirubin Direct 3.6 mg/dL (0.0-0.5); Bilirubin Total 4.7 mg/dL (0.0-1.0); Blood Urea Nitrogen 7 mg/dL (9-16); Calcium 7.7 mg/dL (8.4-10.2); Carbon Dioxide 31 mmol/L (22-29); Chloride 96 mmol/L (96-108); Creatinine Clr Calc Pharmacy 112.2; Estimated Glomerular Filt Rate > 60; Glucose Random 213 mg/dL (60-115); Phosphorus 2.5 mg/dL (2.7-4.5); Sodium 143 mmol/L (135-145)
[2023-09-13 08:14] LABS: Magnesium 1.4 mg/dL (1.6-2.6); Potassium 2.4 mmol/L (3.3-5.1)
[2023-09-13] MEDS: Insulin Lispro 100 UNIT/ML 3 ML VIAL SUBCUT ×4 (08:37→21:42)
[2023-09-13] MEDS: Potassium Chloride Packet 20 MEQ PACKET 40 MEQ PO ×2 (08:38→21:42)
[2023-09-13] MEDS: Sodium,Potassium Phosphates POWD.PACK 2 PACKET PO (08:38)
[2023-09-13] MEDS: Spironolactone 25 MG TABLET 50 MG PO (08:38)
[2023-09-13] MEDS: Potassium Chloride/H20 10 MEQ/100 ML PIGGYBACK 100 MEQ IV ×4 (08:39→12:24)
[2023-09-13] MEDS: Multivitamin TABLET 1 TAB PO (08:40)
[2023-09-13] MEDS: Magnesium Oxide 400 MG TABLET PO ×2 (08:40→16:53)
[2023-09-13] MEDS: Thiamine HCL 100 MG in 0.9 % Sodium Chloride 100 ML 202 MG IV (08:40)
[2023-09-13] MEDS: Aspirin 81 MG TAB.CHEW PO (08:40)
[2023-09-13] MEDS: rifAXIMin 550 MG TABLET PO ×2 (08:40→21:42)
[2023-09-13] MEDS: Furosemide 20 MG TABLET PO (08:40)
[2023-09-13] MEDS: predniSONE 20 MG TABLET 40 MG PO (08:40)
[2023-09-13] MEDS: Folic Acid 1 MG TABLET PO (08:40)
[2023-09-13] MEDS: Magnesium Sulfate/H2O 2 GM/50 ML PIGGYBACK IV (08:41)
[2023-09-13] MEDS: Nystatin Cream 15 GM TUBE 1 APPL TOPICAL (08:41)
--- NOTE | 2023-09-13 10:07 | HO.PM.IMPN ---
Subjective Subjective Date of Service: 09/13/23 Interval History: c/o watery diarrhea + generalized weakness no N/V/abd pain no dyspnea/cough; on 2L O2 via NC Review of Systems Review of Systems: Yes all other systems are reviewed and are negative Physical Exam Vital Signs: Vital Signs: Last Vital Signs Temp 98.0 F 09/13/23 07:20 Pulse 103 H 09/13/23 07:20 Resp 20 09/13/23 07:20 BP 138/75 09/13/23 07:20 Pulse Ox 92 09/13/23 07:20 O2 Del Method Nasal Cannula 09/13/23 07:20 O2 Flow Rate 2 09/13/23 07:20 FiO2 40 09/11/23 11:00 Oxygen Flow Rate 6 09/10/23 11:13 BMI result Body Mass Index 34.5 Gen: in no acute distress HEENT: sclera icteric, moist mucus membranes Neck: supple Lungs: diminished Heart: slightly tachycardic, regular, no murmurs Abd: soft, ascites present, no leak at paracentesis site, no tenderness Ext: 1+ edema Skin: warm/well-perfused Neuro: alert and oriented x3, no focal findings, no asterixis Psych: appropriate affect Objective Data Active Medications Albuterol Sulfate (Albuterol Sulfate (0.083%) 2.5 Mg/3 Ml Vial.Neb) 2.5 mg INHALE Q2H PRN PRN Reason: Shortness of Breath/Wheezing Albuterol/Ipratropium (Albuterol/Iprat 2.5/0.5mg 3 Ml Ampul.Neb) 3 ml INHALE RQ4H WHILE AWAKE [facility] Last Admin: 09/13/23 07:52 Dose: Not Given Documented By: KAMLA Non-Admin Reason: Patient Asleep Aspirin (Aspirin 81 Mg Tab.Chew) 81 mg PO DAILY [facility] Last Admin: 09/13/23 08:40 Dose: 81 mg Documented By: SAGE Atorvastatin Calcium (Atorvastatin Calcium 40 Mg Tablet) 40 mg PO BEDTIME [facility] Last Admin: 09/12/23 21:19 Dose: 40 mg Documented By: CECIL Folic Acid (Folic Acid 1 Mg Tablet) 1 mg PO DAILY [facility] Last Admin: 09/13/23 08:40 Dose: 1 mg Documented By: SAGE Furosemide (Furosemide 20 Mg Tablet) 20 mg PO DAILY [facility]; Protocol Last Admin: 09/13/23 08:40 Dose: 20 mg Documented By: SAGE Glucose (Glucose Gel 15 Gm Gel..Gram.) 15 gm PO Q15M PRN; Protocol PRN Reason: per Hypoglycemia Standing Ord. Dextrose (D10) 250 mls @ 750 mls/hr IV Q15M PRN; Protocol PRN Reason: per Hypoglycemia Standing Ord. Thiamine HCl 100 mg/ Sodium (Chloride) 101 mls @ 202 mls/hr IV DAILY [facility] Last Infusion: 09/13/23 09:18 Dose: Infused Documented By: SAGE Levofloxacin (Levaquin) 750 mg in 150 mls @ 100 mls/hr IV Q24H [facility] Last Infusion: 09/12/23 13:36 Dose: Infused Documented By: RENEA Magnesium Sulfate (Magnesium Sulfate/H2o) 2 gm in 50 mls @ 25 mls/hr IV ONCE ONE Stop: 09/13/23 10:12 Last Admin: 09/13/23 08:41 Dose: 25 mls/hr Documented By: SAGE Potassium Chloride (Potassium Chloride/H20) 10 meq in 100 mls @ 100 mls/hr IV Q1H [facility] Stop: 09/13/23 12:14 Last Admin: 09/13/23 10:03 Dose: 100 mls/hr Documented By: SAGE Insulin Human Lispro (Insulin Lispro 100 Unit/Ml 3 Ml Vial) 0 unit SUBCUT QIDACHS [facility]; Protocol Last Admin: 09/13/23 08:37 Dose: 4 unit Documented By: SAGE Lactulose (Lactulose 20 Gm/30 Ml Solution) 20 gm PO QID [facility] Last Admin: 09/13/23 08:50 Dose: Not Given Documented By: SAGE Non-Admin Reason: hold per Magnesium Oxide (Magnesium Oxide 400 Mg Tablet) 400 mg PO BIDPC [facility] Last Admin: 09/13/23 08:40 Dose: 400 mg Documented By: SAGE Metronidazole (Metronidazole 500 Mg Tablet) 500 mg PO Q8H [facility] Last Admin: 09/13/23 06:00 Dose: 500 mg Documented By: CECIL Multivitamins/Vitamin C (Multivitamin Tablet) 1 tab PO DAILY [facility] Last Admin: 09/13/23 08:40 Dose: 1 tab Documented By: SAGE Nystatin (Nystatin Cream 15 Gm Tube) 1 appl TOPICAL BID [facility]; Protocol Last Admin: 09/13/23 08:41 Dose: 1 appl Documented By: SAGE Pharmacy Consult (Consult Rx Etoh Phenob Im/Po) 1 each MISCELLANE ONCE PRN; Protocol PRN Reason: Consult order Potassium Chloride (Potassium Chloride Packet 20 Meq Packet) 40 meq PO BID [facility] Stop: 09/14/23 09:01 Last Admin: 09/13/23 08:38 Dose: 40 meq Documented By: SAGE Prednisone (Prednisone 20 Mg Tablet) 40 mg PO DAILY [facility] Last Admin: 09/13/23 08:40 Dose: 40 mg Documented By: SAGE Rifaximin (Rifaximin 550 Mg Tablet) 550 mg PO BID [facility] Last Admin: 09/13/23 08:40 Dose: 550 mg Documented By: SAGE Sodium Chloride (0.9 % Sodium Chloride Flush 3 Ml Syringe) 3 ml IVFLUSH QSHIFT [facility] Last Admin: 09/13/23 07:12 Dose: Not Given Documented By: SAGE Non-Admin Reason: Previously Administered Spironolactone (Spironolactone 25 Mg Tablet) 50 mg PO DAILY [facility]; Protocol Last Admin: 09/13/23 08:38 Dose: 50 mg Documented By: SAGE Labs 09/13/23 06:08 09/13/23 06:08 Labs: Laboratory Results - last 24 hr 09/10/23 09/12/23 09/12/23 16:10 11:19 16:00 MCV MCH MCHC RDW Plt Count MPV Immature Gran % (Auto) Neut % (Auto) Lymph % (Auto) [place] % (Auto) Eos % (Auto) Baso % (Auto) Lymph # (Auto) [place] # (Auto) Eos # (Auto) Baso # (Auto) Abs Immat Gran (auto) Absolute Neuts (auto) Absolute Nucleated RBC Nucleated RBC % (auto) Anion Gap Estim Creat Clear Calc Estimated GFR POC Glucose 223 H 245 H Random Glucose Calcium Phosphorus Magnesium Total Bilirubin Direct Bilirubin AST ALT Alkaline Phosphatase Total Protein Albumin Peritoneal Albumin 0.5 Peritoneal LDH 127 Peritoneal Glucose 127 Peritoneal Amylase 21 09/12/23 09/13/23 09/13/23 20:10 06:08 06:58 MCV 114.6 H MCH 39.2 H MCHC 34.2 RDW 19.5 H Plt Count 43 L MPV 11.6 Immature Gran % (Auto) 0.5 H Neut % (Auto) 72.5 Lymph % (Auto) 12.5 L [place] % (Auto) 13.3 H Eos % (Auto) 1.0 Baso % (Auto) 0.2 Lymph # (Auto) 0.7 L [place] # (Auto) 0.8 Eos # (Auto) 0.1 Baso # (Auto) 0.0 Abs Immat Gran (auto) 0.03 Absolute Neuts (auto) 4.2 Absolute Nucleated RBC 0.020 H Nucleated RBC % (auto) 0.3 H Anion Gap 18 Estim Creat Clear Calc 112.2 Estimated GFR > 60 POC Glucose 268 H 219 H Random Glucose 213 H Calcium 7.7 L Phosphorus 2.5 L Magnesium 1.4 L* Total Bilirubin 4.7 H Direct Bilirubin 3.6 H AST 116 H ALT 38 Alkaline Phosphatase 212 H Total Protein 6.0 L Albumin 3.0 L Peritoneal Albumin Peritoneal LDH Peritoneal Glucose Peritoneal Amylase Microbiology Microbiology Results: Microbiology 09/10/23 16:10 Gram Stain - Final Abdominal Fluid Routine Culture - Final No growth after 2 days Anaerobic Culture - Preliminary No growth to date. 09/10/23 11:36 Blood Culture - Preliminary Blood - Venous No growth after 48 hours. 09/10/23 11:22 Blood Culture - Preliminary Blood - Venous No growth after 48 hours. Assessment and Plan (1) Pneumonia: Status: Acute Plan hospital d4 57yo M with COPD, EtOH + HCV cirrhosis, seizure disorder, hx trachestomy, hx angioedema provoked by pineapples, diastolic HF, and DM2 who presented to the [facility] with acute dyspnea starting when he woke up the day of presentation. His visiting nurse called EMS and he was found to have labored breathing and hypoxia with RA SAo2 88%. En route, he was briefly on CPAP and bagged due to being unresponsive. In the ED, he was placed on HFNC. Initial BP in the ED 89/59. He was thrombocytopneic, mildly coagulopathic, and severely hypokalemic and hypomagnesemic as well as having RADHA, elevated birirubin, and transaminitis with AST>ALT. Notably, ammonia level was 156. Serum EtOH <10 and urine drug screen negative. Lactate was elevated to 3. He was given 100g of IV albumin. CT angio of the chest was limited by motion, but did not show any large PE. He did have a small infiltrate of the RML + RLL. CT of the abdomen and pelvis showed a small amount of ascites, distended gallbladder, enlarged fatty liver, new pancreatic cysts possibly suggestive of pseudocysts from prior pancreatitis, and teran-colitis. He was given levofloxacin and metronidazole, and a dose of methylprednisolone. BP improved to 107/64 after 5 mg of PO midodrine. He was given a dose of lactulose. He was also given potassium and magnesium. A paracentesis was done and 2.6L was removed and sent for fluid studies. Finally, he was loaded with phenobarbital IM but became extremely somnolent with concern for airway protection, so he was admitted to the ICU. In the ICU, he was managed with HFNC then weaned to NC and stepped down to the telemetry unit on 09/11/23. AHRF - wean O2 as tolerated; currently on 2L O2 PNA pancolitis - levofloxacin + metronidazole 09/09-, BCx negative, urinary antigens for Legionella and pneumococcus pending, PCT coming down RADHA - resolved with fluid resuscitation hypoK hypoMg - replete IV/PO and recheck in AM hypoPO4 - replete PO and recheck in AM COPD exacerbation - taper IV methylprednisolone -> PO prednisone, continue nebs ascites due to portal HTN [SAAG >1.1] - cell count and culture negative for SBP - changed IV to PO furosemide and added spironolactone; monitor BMPs hepatic encephalopathy - rifaximin; hold lactuolse due to diarrhea thrombocytopenia - due to cirrhosis + infection; monitor daily; avoid heparin EtOH hepatitis - LFTs improved AUD, no withdrawal syndrome - hold further phenobarbital, give thiamine/folate/multivitamin. Addiction Medicine consulted. Pt not interested in abstinence DM2 - alin-dose lispro VTE ppx - SCDs dispo - PT eval on hold due to severe hypoK In my clinical judgment, the patient requires continued inpatient hospitalization for the following reasons: hypoxia, IV electrolyte repletion updated at bedside Total time managing care of this patient today: 50 minutes. Quality Stroke Does the patient have a stroke diagnosis?: No VTE Prior VTE?: No VTE Risk Level:: Medical - moderate - high VTE Device Contraindication: N/A - Device Ordered VTE Drug Contraindication: N/A - Med Ordered
[2023-09-13] MEDS: Albuterol/Iprat 2.5/0.5MG 3 ML AMPUL.NEB INHALE ×3 (10:48→19:55)
[2023-09-13 10:58] LABS: Glucose, Whole Blood 179 mg/dL (60-115)
[2023-09-13 11:06] LABS: CDiff Gene PCR NEGATIVE (Negative)
[2023-09-13] MEDS: levoFLOXacin/D5W 750 MG/150 ML PIGGYBACK 100 MG IV (11:11)
[2023-09-13 16:54] LABS: Glucose, Whole Blood 270 mg/dL (60-115)
[2023-09-13 20:20] LABS: Glucose, Whole Blood 207 mg/dL (60-115)
[2023-09-13] MEDS: Pregabalin 200 MG CAPSULE PO (21:42)
[2023-09-13] MEDS: Atorvastatin Calcium 40 MG TABLET PO (21:42)
[2023-09-13] MEDS: 0.9 % Sodium Chloride Flush 3 ML SYRINGE IVFLUSH (21:43)
[2023-09-13 22:48] LABS: Strep Pneumo Ag urine Detected (Not Detected)
[2023-09-14] VITALS (8 sets, daily range): BP systolic 132–149; BP diastolic 63–86; PULSE 67–104; RESP 16–20; TEMP 36.2–37.1; O2SAT 92–95; BMI 34.3
[2023-09-14] MEDS: traMADoL HCL 50 MG TABLET 25 MG PO (01:23)
[2023-09-14] MEDS: metroNIDAZOLE 500 MG TABLET PO ×3 (05:41→22:10)
[2023-09-14] MEDS: Acetaminophen 325 MG TABLET 650 MG PO (05:41)
[2023-09-14 06:41] LABS: MANUAL DIFF FLAG NO
[2023-09-14 06:50] LABS: Basophils Percent Auto 0.3 % (0-2); Eosinophils Absolute Auto 0.1 X10*3/uL (0.0-0.4); Eosinophils Percent Auto 1.7 % (0-4); Hematocrit 38.7 % (42.0-52.0); Hemoglobin 13.2 g/dl (14.0-18.0); Imm Gran Abs Auto 0.04 X10*3/uL (0.00-0.03); Imm Gran Pct Auto 0.6 % (0.0-0.4); Lymphocytes Absolute Auto 0.7 X10*3/uL (1.2-4.9); Lymphocytes Percent Auto 10.8 % (20-40); Mean Corpuscular HGB Conc 34.1 g/dl (31.0-36.0); Mean Corpuscular Hemoglobin 38.6 pg (27.0-33.0); Mean Corpuscular Volume 113.2 fL (80.0-98.0); Mean Platelet Volume 11.4 fL (9.4-12.4); Monocytes Percent Auto 15.2 % (2-11); NRBC Pct Auto 0.3 /100WBC (0.0-0.2); Neutrophils Absolute Auto 4.8 x10*3/uL (2.0-8.3); Neutrophils Percent Auto 71.4 % (45-73); Red Blood Count 3.42 X10*6/uL (4.60-5.80); Red Cell Distribution Width 19.1 % (11.0-16.0); White Blood Count 6.7 X10*3/uL (4.8-10.8)
[2023-09-14 06:51] LABS: Platelet Count 43 X10*3/uL (160-400)
[2023-09-14 06:57] LABS: Anion Gap 14 (12-20); Blood Urea Nitrogen 6 mg/dL (9-16); Calcium 7.7 mg/dL (8.4-10.2); Carbon Dioxide 32 mmol/L (22-29); Chloride 98 mmol/L (96-108); Creatinine Clr Calc Pharmacy 131.5; Estimated Glomerular Filt Rate > 60; Glucose Random 192 mg/dL (60-115); Magnesium 1.7 mg/dL (1.6-2.6); Phosphorus 1.9 mg/dL (2.7-4.5); Sodium 141 mmol/L (135-145)
[2023-09-14 07:05] LABS: Glucose, Whole Blood 201 mg/dL (60-115)
[2023-09-14 07:36] LABS: Folate 12.3 ng/mL (> or = 4.0); Vitamin B12 995 pg/mL (200-900)
[2023-09-14] MEDS: Furosemide 20 MG TABLET PO (08:05)
[2023-09-14] MEDS: Spironolactone 25 MG TABLET 50 MG PO (08:06)
[2023-09-14] MEDS: Pregabalin 200 MG CAPSULE PO ×3 (08:06→22:10)
[2023-09-14] MEDS: rifAXIMin 550 MG TABLET PO ×2 (08:06→22:11)
[2023-09-14] MEDS: Folic Acid 1 MG TABLET PO (08:06)
[2023-09-14] MEDS: Aspirin 81 MG TAB.CHEW PO (08:06)
[2023-09-14] MEDS: Magnesium Oxide 400 MG TABLET PO ×2 (08:06→16:49)
[2023-09-14] MEDS: Potassium Chloride Packet 20 MEQ PACKET 40 MEQ PO (08:06)
[2023-09-14] MEDS: Multivitamin TABLET 1 TAB PO (08:06)
[2023-09-14] MEDS: predniSONE 20 MG TABLET 40 MG PO (08:06)
[2023-09-14] MEDS: Nystatin Cream 15 GM TUBE 1 APPL TOPICAL ×2 (08:07→22:15)
[2023-09-14] MEDS: Albuterol/Iprat 2.5/0.5MG 3 ML AMPUL.NEB INHALE (08:08)
[2023-09-14] MEDS: Insulin Lispro 100 UNIT/ML 3 ML VIAL SUBCUT ×4 (08:12→22:17)
[2023-09-14] MEDS: 0.9 % Sodium Chloride Flush 3 ML SYRINGE IVFLUSH ×2 (08:20→22:14)
[2023-09-14 08:31] LABS: Adenovirus F 40/41 Not Detected (Not Detect.); Astrovirus Not Detected (Not Detect.); Campylobacter Not Detected (Not Detect.); Cryptosporidium Not Detected (Not Detect.); Cyclospora cayetanensis Not Detected (Not Detect.); E. coli EAEC Not Detected (Not Detect.); E. coli EPEC Not Detected (Not Detect.); E. coli ETEC Not Detected (Not Detect.); E. coli STEC Not Detected (Not Detect.); Entamoeba histolytica Not Detected (Not Detect.); Giardia lamblia Not Detected (Not Detect.); Norovirus GI/GII Not Detected (Not Detect.); Plesiomonas shigelloides Not Detected (Not Detect.); Rotavirus A Not Detected (Not Detect.); Salmonella Not Detected (Not Detect.); Sapovirus Not Detected (Not Detect.); Shigella sp./EIEC Not Detected (Not Detect.); Vibrio Not Detected (Not Detect.); Vibrio Cholerae Not Detected (Not Detect.); Yersinia enterocolitica Not Detected (Not Detect.)
[2023-09-14] MEDS: Thiamine HCL 100 MG in 0.9 % Sodium Chloride 100 ML 202 MG IV (10:00)
[2023-09-14] MEDS: Potassium Phosphate/NS 15 MMOL/250 ML PLAST..BAG 62.5 MMOL IV ×2 (10:06→14:19)
--- NOTE | 2023-09-14 10:46 | HO.PM.IMPN ---
Subjective Subjective Date of Service: 09/14/23 Interval History: dyspnea improved; on 2L O2 very weak abd distended but not uncomfortable tolerating diet and diarrhea improving Review of Systems Review of Systems: Yes all other systems are reviewed and are negative Physical Exam Vital Signs: Vital Signs: Last Vital Signs Temp 98.6 F 09/14/23 07:31 Pulse 91 09/14/23 08:10 Resp 18 09/14/23 08:10 BP 134/70 09/14/23 07:31 Pulse Ox 93 09/14/23 07:31 O2 Del Method Nasal Cannula 09/14/23 07:31 O2 Flow Rate 2 09/14/23 07:31 FiO2 40 09/11/23 11:00 Oxygen Flow Rate 6 09/10/23 11:13 BMI result Body Mass Index 34.3 Gen: in no acute distress HEENT: sclera icteric, moist mucus membranes Neck: supple Lungs: diminished Heart: regular, no murmurs Abd: soft, ascites present, no leak at paracentesis site, no tenderness Ext: 1+ edema Skin: warm/well-perfused Neuro: alert and oriented x3, no focal findings, no asterixis Psych: appropriate affect Objective Data Active Medications Acetaminophen (Acetaminophen 325 Mg Tablet) 650 mg PO Q6H PRN PRN Reason: Pain, Mild (Pain Scale 1-3) Last Admin: 09/14/23 05:41 Dose: 650 mg Documented By: NEHAL Albuterol Sulfate (Albuterol Sulfate (0.083%) 2.5 Mg/3 Ml Vial.Neb) 2.5 mg INHALE Q2H PRN PRN Reason: Shortness of Breath/Wheezing Albuterol/Ipratropium (Albuterol/Iprat 2.5/0.5mg 3 Ml Ampul.Neb) 3 ml INHALE RQ4H WHILE AWAKE [facility] Last Admin: 09/14/23 08:08 Dose: 3 ml Documented By: RASHAAD Aspirin (Aspirin 81 Mg Tab.Chew) 81 mg PO DAILY [facility] Last Admin: 09/14/23 08:06 Dose: 81 mg Documented By: AMALIA Atorvastatin Calcium (Atorvastatin Calcium 40 Mg Tablet) 40 mg PO BEDTIME [facility] Last Admin: 09/13/23 21:42 Dose: 40 mg Documented By: NEHAL Folic Acid (Folic Acid 1 Mg Tablet) 1 mg PO DAILY [facility] Last Admin: 09/14/23 08:06 Dose: 1 mg Documented By: AMALIA Furosemide (Furosemide 20 Mg Tablet) 20 mg PO DAILY [facility]; Protocol Last Admin: 09/14/23 08:05 Dose: 20 mg Documented By: AMALIA Glucose (Glucose Gel 15 Gm Gel..Gram.) 15 gm PO Q15M PRN; Protocol PRN Reason: per Hypoglycemia Standing Ord. Dextrose (D10) 250 mls @ 750 mls/hr IV Q15M PRN; Protocol PRN Reason: per Hypoglycemia Standing Ord. Thiamine HCl 100 mg/ Sodium (Chloride) 101 mls @ 202 mls/hr IV DAILY [facility] Last Infusion: 09/14/23 10:30 Dose: Infused Documented By: AMALIA Potassium Phosphate (Kphos) 15 mmol in 250 mls @ 62.5 mls/hr IV Q4H [facility] Stop: 09/14/23 15:44 Last Admin: 09/14/23 10:06 Dose: 62.5 mls/hr Documented By: AMALIA Insulin Human Lispro (Insulin Lispro 100 Unit/Ml 3 Ml Vial) 0 unit SUBCUT QIDACHS [facility]; Protocol Last Admin: 09/14/23 08:12 Dose: 4 unit Documented By: AMALIA Lactulose (Lactulose 20 Gm/30 Ml Solution) 20 gm PO QID [facility] Last Admin: 09/13/23 08:50 Dose: Not Given Documented By: SAGE Non-Admin Reason: hold per Levofloxacin (Levofloxacin 750 Mg Tablet) 750 mg PO Q24H [facility] Magnesium Oxide (Magnesium Oxide 400 Mg Tablet) 400 mg PO BIDPC [facility] Last Admin: 09/14/23 08:06 Dose: 400 mg Documented By: AMALIA Metronidazole (Metronidazole 500 Mg Tablet) 500 mg PO Q8H [facility] Last Admin: 09/14/23 05:41 Dose: 500 mg Documented By: NEHAL Multivitamins/Vitamin C (Multivitamin Tablet) 1 tab PO DAILY [facility] Last Admin: 09/14/23 08:06 Dose: 1 tab Documented By: AMALIA Nystatin (Nystatin Cream 15 Gm Tube) 1 appl TOPICAL BID [facility]; Protocol Last Admin: 09/14/23 08:07 Dose: 1 appl Documented By: AMALIA Pharmacy Consult (Consult Rx Etoh Phenob Im/Po) 1 each MISCELLANE ONCE PRN; Protocol PRN Reason: Consult order Prednisone (Prednisone 20 Mg Tablet) 40 mg PO DAILY [facility] Last Admin: 09/14/23 08:06 Dose: 40 mg Documented By: AMALIA Pregabalin (Pregabalin 200 Mg Capsule) 200 mg PO TID [facility] Last Admin: 09/14/23 08:06 Dose: 200 mg Documented By: AMALIA Rifaximin (Rifaximin 550 Mg Tablet) 550 mg PO BID [facility] Last Admin: 09/14/23 08:06 Dose: 550 mg Documented By: AMALIA Sodium Chloride (0.9 % Sodium Chloride Flush 3 Ml Syringe) 3 ml IVFLUSH QSHIFT [facility] Last Admin: 09/14/23 08:20 Dose: 3 ml Documented By: AMALIA Spironolactone (Spironolactone 25 Mg Tablet) 50 mg PO DAILY [facility]; Protocol Last Admin: 09/14/23 08:06 Dose: 50 mg Documented By: AMALIA Labs 09/14/23 06:11 09/14/23 06:11 Labs: Laboratory Results - last 24 hr 09/10/23 09/13/23 09/13/23 11:45 09:30 10:49 MCV MCH MCHC RDW Plt Count MPV Immature Gran % (Auto) Neut % (Auto) Lymph % (Auto) Isabella % (Auto) Eos % (Auto) Baso % (Auto) Lymph # (Auto) Isabella # (Auto) Eos # (Auto) Baso # (Auto) Abs Immat Gran (auto) Absolute Neuts (auto) Absolute Nucleated RBC Nucleated RBC % (auto) Anion Gap Estim Creat Clear Calc Estimated GFR POC Glucose 179 H Random Glucose Calcium Phosphorus Magnesium Vitamin B12 Folate Stl C. cayetanensis PCR Stool Rotavirus A PCR Stl Adenov F 40/41 PCR Stool Astrovirus (PCR) Stool Campylobacter PCR Stool Cryptosporidium PCR Stl Sh Tox Pr E STEC PCR Stool E coli O157 PCR Stl Enterotoxigenic E PCR Stool EPEC (PCR) Stool EAEC (PCR) Stl E. histolytica PCR Stool Giardia Lamblia PCR Stl P. shigelloides PCR Stool Salmonella PCR Stool Sapovirus (PCR) Stl Shigella/EIEC PCR St Y.enterocolitica PCR Stool Vibrio (PCR) Stl Vibrio cholerae PCR Stl Norovirus GI/GII PCR C. difficile Tox B Gene NEGATIVE Ur Strep pneumoniae Ag Detected A 09/13/23 09/13/23 09/14/23 16:49 20:13 03:15 MCV MCH MCHC RDW Plt Count MPV Immature Gran % (Auto) Neut % (Auto) Lymph % (Auto) Isabella % (Auto) Eos % (Auto) Baso % (Auto) Lymph # (Auto) Isabella # (Auto) Eos # (Auto) Baso # (Auto) Abs Immat Gran (auto) Absolute Neuts (auto) Absolute Nucleated RBC Nucleated RBC % (auto) Anion Gap Estim Creat Clear Calc Estimated GFR POC Glucose 270 H 207 H Random Glucose Calcium Phosphorus Magnesium Vitamin B12 Folate Stl C. cayetanensis PCR Not Detected Stool Rotavirus A PCR Not Detected Stl Adenov F 40/41 PCR Not Detected Stool Astrovirus (PCR) Not Detected Stool Campylobacter PCR Not Detected Stool Cryptosporidium PCR Not Detected Stl Sh Tox Pr E STEC PCR Not Detected Stool E coli O157 PCR Not applicable Stl Enterotoxigenic E PCR Not Detected Stool EPEC (PCR) Not Detected Stool EAEC (PCR) Not Detected Stl E. histolytica PCR Not Detected Stool Giardia Lamblia PCR Not Detected Stl P. shigelloides PCR Not Detected Stool Salmonella PCR Not Detected Stool Sapovirus (PCR) Not Detected Stl Shigella/EIEC PCR Not Detected St Y.enterocolitica PCR Not Detected Stool Vibrio (PCR) Not Detected Stl Vibrio cholerae PCR Not Detected Stl Norovirus GI/GII PCR Not Detected C. difficile Tox B Gene Ur Strep pneumoniae Ag 09/14/23 09/14/23 06:11 06:57 MCV 113.2 H MCH 38.6 H MCHC 34.1 RDW 19.1 H Plt Count 43 L MPV 11.4 Immature Gran % (Auto) 0.6 H Neut % (Auto) 71.4 Lymph % (Auto) 10.8 L Isabella % (Auto) 15.2 H Eos % (Auto) 1.7 Baso % (Auto) 0.3 Lymph # (Auto) 0.7 L Isabella # (Auto) 1.0 Eos # (Auto) 0.1 Baso # (Auto) 0.0 Abs Immat Gran (auto) 0.04 H Absolute Neuts (auto) 4.8 Absolute Nucleated RBC 0.020 H Nucleated RBC % (auto) 0.3 H Anion Gap 14 Estim Creat Clear Calc 131.5 Estimated GFR > 60 POC Glucose 201 H Random Glucose 192 H Calcium 7.7 L Phosphorus 1.9 L Magnesium 1.7 Vitamin B12 995 H Folate 12.3 Stl C. cayetanensis PCR Stool Rotavirus A PCR Stl Adenov F 40/41 PCR Stool Astrovirus (PCR) Stool Campylobacter PCR Stool Cryptosporidium PCR Stl Sh Tox Pr E STEC PCR Stool E coli O157 PCR Stl Enterotoxigenic E PCR Stool EPEC (PCR) Stool EAEC (PCR) Stl E. histolytica PCR Stool Giardia Lamblia PCR Stl P. shigelloides PCR Stool Salmonella PCR Stool Sapovirus (PCR) Stl Shigella/EIEC PCR St Y.enterocolitica PCR Stool Vibrio (PCR) Stl Vibrio cholerae PCR Stl Norovirus GI/GII PCR C. difficile Tox B Gene Ur Strep pneumoniae Ag Microbiology Microbiology Results: Microbiology 09/10/23 16:10 Gram Stain - Final Abdominal Fluid Routine Culture - Final No growth after 2 days Anaerobic Culture - Preliminary No growth to date. Assessment and Plan (1) Pneumonia: Status: [facility] hospital d5 57yo M with COPD, EtOH + HCV cirrhosis, seizure disorder, hx trachestomy, hx angioedema provoked by pineapples, diastolic HF, and DM2 who presented to the [facility] ED with acute dyspnea starting when he woke up the day of presentation. His visiting nurse called EMS and he was found to have labored breathing and hypoxia with RA SAo2 88%. En route, he was briefly on CPAP and bagged due to being unresponsive. In the ED, he was placed on HFNC. Initial BP in the ED 89/59. He was thrombocytopneic, mildly coagulopathic, and severely hypokalemic and hypomagnesemic as well as having RADHA, elevated birirubin, and transaminitis with AST>ALT. Notably, ammonia level was 156. Serum EtOH <10 and urine drug screen negative. Lactate was elevated to 3. He was given 100g of IV albumin. CT angio of the chest was limited by motion, but did not show any large PE. He did have a small infiltrate of the RML + RLL. CT of the abdomen and pelvis showed a small amount of ascites, distended gallbladder, enlarged fatty liver, new pancreatic cysts possibly suggestive of pseudocysts from prior pancreatitis, and teran-colitis. He was given levofloxacin and metronidazole, and a dose of methylprednisolone. BP improved to 107/64 after 5 mg of PO midodrine. He was given a dose of lactulose. He was also given potassium and magnesium. A paracentesis was done and 2.6L was removed and sent for fluid studies. Finally, he was loaded with phenobarbital IM but became extremely somnolent with concern for airway protection, so he was admitted to the ICU. In the ICU, he was managed with HFNC then weaned to NC and stepped down to the telemetry unit on 09/11/23. AHRF - continue to wean O2 as tolerated; currently on 2L O2 pneumococcal PNA pancolitis - levofloxacin 09/09-09/16, metronidazole 09/09-09/16, BCx negative, urinary antigen for pneumococcus POSITIVE, PCT came down RADHA, prerenal - resolved with fluid resuscitation hypoK hypoPO4 - replete IV and recheck in AM hypoMg - repleted hypoPO4 - replete PO and recheck in AM COPD exacerbation - IV methylprednisolone -> PO prednisone taper over next 9d, continue nebs standing/prn ascites due to portal HTN [SAAG >1.1] - cell count and culture negative for SBP - changed IV to PO furosemide and added spironolactone; monitor BMP hepatic encephalopathy - rifaximin; hold lactulose due to diarrhea [giving Imodium now; Cdiff negative + GI panel negative] thrombocytopenia - due to cirrhosis + infection; monitor daily [appears to have reached matthew]; avoid heparin EtOH hepatitis/cirrhosis - LFTs improved - counseled pt and that he has decompensated cirrhosis given ascites + encephalopathy and the only hope for his liver is to abstain from EtOH and seek outpt GI care and transplant evaluation AUD, no withdrawal syndrome - hold further phenobarbital, give thiamine/folate/multivitamin. Addiction Medicine consulted; pt not interested in abstinence DM2 - alin-dose lispro VTE ppx - SCDs dispo - PT eval tomorrow, likely needs STR [held evaluation yesterday due to severe hypoK] In my clinical judgment, the patient requires continued inpatient hospitalization for the following reasons: hypoxia, IV electrolyte repletion Total time managing care of this patient today: 40 minutes. Quality Stroke Does the patient have a stroke diagnosis?: No VTE Prior VTE?: No VTE Risk Level:: Medical - moderate - high VTE Device Contraindication: N/A - Device Ordered VTE Drug Contraindication: N/A - Med Ordered
[2023-09-14 10:57] LABS: Glucose, Whole Blood 189 mg/dL (60-115)
[2023-09-14] MEDS: Loperamide HCl 2 MG CAPSULE PO ×3 (11:12→22:10)
[2023-09-14] MEDS: levoFLOXacin 750 MG TABLET PO (11:12)
[2023-09-14 16:18] LABS: Glucose, Whole Blood 231 mg/dL (60-115)
[2023-09-14 20:29] LABS: Glucose, Whole Blood 212 mg/dL (60-115)
[2023-09-14] MEDS: Atorvastatin Calcium 40 MG TABLET PO (22:23)
[2023-09-15] VITALS (9 sets, daily range): BP systolic 123–166; BP diastolic 78–92; PULSE 86–107; RESP 17–20; TEMP 36–36.6; O2SAT 87–95; BMI 33.8
[2023-09-15] MEDS: Albuterol/Iprat 2.5/0.5MG 3 ML AMPUL.NEB INHALE (03:31)
[2023-09-15] MEDS: metroNIDAZOLE 500 MG TABLET PO ×3 (03:48→21:12)
[2023-09-15] MEDS: Loperamide HCl 2 MG CAPSULE PO ×3 (03:48→15:26)
[2023-09-15 06:34] LABS: Eosinophils Absolute Auto 0.2 X10*3/uL (0.0-0.4); Imm Gran Abs Auto 0.06 X10*3/uL (0.00-0.03)
[2023-09-15 06:36] LABS: Basophils Percent Auto 0.2 % (0-2); Eosinophils Percent Auto 2.1 % (0-4); Hematocrit 37.3 % (42.0-52.0); Hemoglobin 12.8 g/dl (14.0-18.0); Imm Gran Pct Auto 0.7 % (0.0-0.4); Lymphocytes Absolute Auto 0.7 X10*3/uL (1.2-4.9); Lymphocytes Percent Auto 9.1 % (20-40); Mean Corpuscular HGB Conc 34.3 g/dl (31.0-36.0); Mean Corpuscular Hemoglobin 39.4 pg (27.0-33.0); Mean Platelet Volume 11.7 fL (9.4-12.4); Monocytes Absolute Auto 1.3 X10*3/uL (0.1-1.2); Monocytes Percent Auto 16.2 % (2-11); Neutrophils Absolute Auto 5.7 x10*3/uL (2.0-8.3); Neutrophils Percent Auto 71.7 % (45-73); Red Blood Count 3.25 X10*6/uL (4.60-5.80)
[2023-09-15 06:38] LABS: Mean Corpuscular Volume 114.8 fL (80.0-98.0)
[2023-09-15 06:41] LABS: Platelet Count 49 X10*3/uL (160-400)
[2023-09-15 06:48] LABS: Legionella Ag Urine Not Detected (Not Detected)
[2023-09-15 06:54] LABS: Anion Gap 12 (12-20); Blood Urea Nitrogen 9 mg/dL (9-16); Calcium 8.1 mg/dL (8.4-10.2); Carbon Dioxide 34 mmol/L (22-29); Chloride 97 mmol/L (96-108); Creatinine Clr Calc Pharmacy 127.5; Estimated Glomerular Filt Rate > 60; Glucose Random 285 mg/dL (60-115); Magnesium 1.7 mg/dL (1.6-2.6); Phosphorus 1.7 mg/dL (2.7-4.5); Potassium 3.5 mmol/L (3.3-5.1); Sodium 139 mmol/L (135-145)
[2023-09-15 07:54] LABS: Glucose, Whole Blood 257 mg/dL (60-115)
[2023-09-15] MEDS: Insulin Lispro 100 UNIT/ML 3 ML VIAL SUBCUT ×4 (08:35→21:13)
[2023-09-15] MEDS: 0.9 % Sodium Chloride Flush 3 ML SYRINGE IVFLUSH ×3 (08:38→21:16)
[2023-09-15] MEDS: predniSONE 20 MG TABLET 40 MG PO (08:43)
[2023-09-15] MEDS: Spironolactone 25 MG TABLET 50 MG PO (08:45)
[2023-09-15] MEDS: Multivitamin TABLET 1 TAB PO (08:45)
[2023-09-15] MEDS: Magnesium Oxide 400 MG TABLET PO ×2 (08:47→17:21)
[2023-09-15] MEDS: rifAXIMin 550 MG TABLET PO ×2 (08:48→21:13)
[2023-09-15] MEDS: Folic Acid 1 MG TABLET PO (08:50)
[2023-09-15] MEDS: Pregabalin 200 MG CAPSULE PO ×3 (08:51→21:13)
[2023-09-15] MEDS: Furosemide 20 MG TABLET PO (08:52)
[2023-09-15] MEDS: Aspirin 81 MG TAB.CHEW PO (08:53)
[2023-09-15] MEDS: Thiamine HCL 100 MG in 0.9 % Sodium Chloride 100 ML IV (09:03)
[2023-09-15] MEDS: Nystatin Cream 15 GM TUBE 1 APPL TOPICAL ×2 (09:10→21:15)
[2023-09-15] MEDS: Potassium Chloride ER 20 MEQ TAB.ER.PRT 40 MEQ PO (09:10)
--- NOTE | 2023-09-15 10:56 | HO.PM.IMPN ---
Subjective Subjective Date of Service: 09/15/23 Interval History: weakness, Physical Exam Vital Signs: Vital Signs: Last Vital Signs Temp 97.5 F 09/15/23 07:38 Pulse 104 H 09/15/23 07:38 Resp 19 09/15/23 07:38 BP 157/79 H 09/15/23 07:38 Pulse Ox 94 09/15/23 07:38 O2 Del Method Nasal Cannula 09/15/23 07:38 O2 Flow Rate 2 09/15/23 07:38 FiO2 40 09/11/23 11:00 Oxygen Flow Rate 6 09/10/23 11:13 BMI result Body Mass Index 33.8 Gen: in no acute distress HEENT: sclera icteric, moist mucus membranes Neck: supple Lungs: diminished Heart: regular, no murmurs Abd: soft, ascites present, no leak at paracentesis site, no tenderness Ext: 1+ edema Skin: warm/well-perfused Neuro: alert and oriented x3, no focal findings, no asterixis Psych: appropriate affect Objective Data Active Medications Acetaminophen (Acetaminophen 325 Mg Tablet) 650 mg PO Q6H PRN PRN Reason: Pain, Mild (Pain Scale 1-3) Last Admin: 09/14/23 05:41 Dose: 650 mg Documented By: NEHAL Albuterol Sulfate (Albuterol Sulfate (0.083%) 2.5 Mg/3 Ml Vial.Neb) 2.5 mg INHALE Q2H PRN PRN Reason: Shortness of Breath/Wheezing Albuterol/Ipratropium (Albuterol/Iprat 2.5/0.5mg 3 Ml Ampul.Neb) 3 ml INHALE Q4H PRN PRN Reason: Wheezing Last Admin: 09/15/23 03:31 Dose: 3 ml Documented By: TAE Aspirin (Aspirin 81 Mg Tab.Chew) 81 mg PO DAILY [facility] Last Admin: 09/15/23 08:53 Dose: 81 mg Documented By: NAVEEN Atorvastatin Calcium (Atorvastatin Calcium 40 Mg Tablet) 40 mg PO BEDTIME [facility] Last Admin: 09/14/23 22:23 Dose: 40 mg Documented By: NIKITA Folic Acid (Folic Acid 1 Mg Tablet) 1 mg PO DAILY [facility] Last Admin: 09/15/23 08:50 Dose: 1 mg Documented By: NAVEEN Furosemide (Furosemide 20 Mg Tablet) 20 mg PO DAILY [facility]; Protocol Last Admin: 09/15/23 08:52 Dose: 20 mg Documented By: NAVEEN Glucose (Glucose Gel 15 Gm Gel..Gram.) 15 gm PO Q15M PRN; Protocol PRN Reason: per Hypoglycemia Standing Ord. Dextrose (D10) 250 mls @ 750 mls/hr IV Q15M PRN; Protocol PRN Reason: per Hypoglycemia Standing Ord. Thiamine HCl 100 mg/ Sodium (Chloride) 101 mls @ 202 mls/hr IV DAILY [facility] Last Infusion: 09/15/23 10:54 Dose: Infused Documented By: NAVEEN Insulin Human Lispro (Insulin Lispro 100 Unit/Ml 3 Ml Vial) 0 unit SUBCUT QIDACHS [facility]; Protocol Last Admin: 09/15/23 08:35 Dose: 6 unit Documented By: NAVEEN Lactulose (Lactulose 20 Gm/30 Ml Solution) 20 gm PO QID [facility] Last Admin: 09/13/23 08:50 Dose: Not Given Documented By: SAGE Non-Admin Reason: hold per Levofloxacin (Levofloxacin 750 Mg Tablet) 750 mg PO Q24H [facility] Stop: 09/17/23 23:55 Last Admin: 09/14/23 11:12 Dose: 750 mg Documented By: AMALIA Loperamide HCl (Loperamide Hcl 2 Mg Capsule) 2 mg PO Q4H PRN PRN Reason: diarrhoea Last Admin: 09/15/23 08:46 Dose: 2 mg Documented By: NAVEEN Magnesium Oxide (Magnesium Oxide 400 Mg Tablet) 400 mg PO BIDPC [facility] Last Admin: 09/15/23 08:47 Dose: 400 mg Documented By: NAVEEN Metronidazole (Metronidazole 500 Mg Tablet) 500 mg PO Q8H [facility] Stop: 09/17/23 23:55 Last Admin: 09/15/23 03:48 Dose: 500 mg Documented By: BELSITC Multivitamins/Vitamin C (Multivitamin Tablet) 1 tab PO DAILY [facility] Last Admin: 09/15/23 08:45 Dose: 1 tab Documented By: NAVEEN Nystatin (Nystatin Cream 15 Gm Tube) 1 appl TOPICAL BID [facility]; Protocol Last Admin: 09/15/23 09:10 Dose: 1 appl Documented By: NAVEEN Pharmacy Consult (Consult Rx Etoh Phenob Im/Po) 1 each MISCELLANE ONCE PRN; Protocol PRN Reason: Consult order Prednisone (Prednisone 20 Mg Tablet) 40 mg PO DAILY [facility]; Taper Stop: 09/24/23 08:59 Last Admin: 09/15/23 08:43 Dose: 40 mg Documented By: NAVEEN Pregabalin (Pregabalin 200 Mg Capsule) 200 mg PO TID [facility] Last Admin: 09/15/23 08:51 Dose: 200 mg Documented By: NAVEEN Rifaximin (Rifaximin 550 Mg Tablet) 550 mg PO BID [facility] Last Admin: 09/15/23 08:48 Dose: 550 mg Documented By: NAVEEN Sodium Chloride (0.9 % Sodium Chloride Flush 3 Ml Syringe) 3 ml IVFLUSH QSHIFT [facility] Last Admin: 09/15/23 08:38 Dose: 3 ml Documented By: NAVEEN Spironolactone (Spironolactone 25 Mg Tablet) 50 mg PO DAILY [facility]; Protocol Last Admin: 09/15/23 08:45 Dose: 50 mg Documented By: NAVEEN Labs 09/15/23 06:09 09/15/23 06:09 Labs: Laboratory Results - last 24 hr 09/10/23 09/14/23 09/14/23 11:45 10:50 16:01 MCV MCH MCHC RDW Plt Count MPV Immature Gran % (Auto) Neut % (Auto) Lymph % (Auto) Lares % (Auto) Eos % (Auto) Baso % (Auto) Lymph # (Auto) Lares # (Auto) Eos # (Auto) Baso # (Auto) Abs Immat Gran (auto) Absolute Neuts (auto) Absolute Nucleated RBC Nucleated RBC % (auto) Anion Gap Estim Creat Clear Calc Estimated GFR POC Glucose 189 H 231 H Random Glucose Calcium Phosphorus Magnesium Ur L.pneumophila Ag Not Detected 09/14/23 09/15/23 09/15/23 20:14 06:09 07:46 MCV 114.8 H MCH 39.4 H MCHC 34.3 RDW 19.0 H Plt Count 49 L MPV 11.7 Immature Gran % (Auto) 0.7 H Neut % (Auto) 71.7 Lymph % (Auto) 9.1 L Lares % (Auto) 16.2 H Eos % (Auto) 2.1 Baso % (Auto) 0.2 Lymph # (Auto) 0.7 L Lares # (Auto) 1.3 H Eos # (Auto) 0.2 Baso # (Auto) 0.0 Abs Immat Gran (auto) 0.06 H Absolute Neuts (auto) 5.7 Absolute Nucleated RBC 0.000 Nucleated RBC % (auto) 0.0 Anion Gap 12 Estim Creat Clear Calc 127.5 Estimated GFR > 60 POC Glucose 212 H 257 H Random Glucose 285 H Calcium 8.1 L Phosphorus 1.7 L Magnesium 1.7 Ur L.pneumophila Ag Microbiology Microbiology Results: Microbiology 09/10/23 16:10 Gram Stain - Final Abdominal Fluid Routine Culture - Final No growth after 2 days Anaerobic Culture - Preliminary No growth to date. Assessment and Plan (1) Pneumonia: Status: [facility] hospital d6 57yo M with COPD, EtOH + HCV cirrhosis, seizure disorder, hx trachestomy, hx angioedema provoked by pineapples, diastolic HF, and DM2 who presented [place] [facility] [place] with acute dyspnea starting when he woke up the day of presentation. His visiting nurse called EMS and he was found to have labored breathing and hypoxia with RA SAo2 88%. En route, he was briefly on CPAP and bagged due to being unresponsive. In the ED, he was placed on HFNC. Initial BP in the ED 89/59. He was thrombocytopneic, mildly coagulopathic, and severely hypokalemic and hypomagnesemic as well as having RADHA, elevated birirubin, and transaminitis with AST>ALT. Notably, ammonia level was 156. Serum EtOH <10 and urine drug screen negative. Lactate was elevated to 3. He was given 100g of IV albumin. CT angio of the chest was limited by motion, but did not show any large PE. He did have a small infiltrate of the RML + RLL. CT of the abdomen and pelvis showed a small amount of ascites, distended gallbladder, enlarged fatty liver, new pancreatic cysts possibly suggestive of pseudocysts from prior pancreatitis, and teran-colitis. He was given levofloxacin and metronidazole, and a dose of methylprednisolone. BP improved to 107/64 after 5 mg of PO midodrine. He was given a dose of lactulose. He was also given potassium and magnesium. A paracentesis was done and 2.6L was removed and sent for fluid studies. Finally, he was loaded with phenobarbital IM but became extremely somnolent with concern for airway protection, so he was admitted to the ICU. In the ICU, he was managed with HFNC then weaned to NC and stepped down to the telemetry unit on 09/11/23. AHRF -continue to wean O2 as tolerated; currently on 2L O2 pneumococcal PNA pancolitis levofloxacin 09/09-09/16, metronidazole 09/09-09/16, BCx negative, urinary antigen for pneumococcus POSITIVE, PCT came down RADHA, prerenal -resolved with fluid resuscitation hypoK hypoPO4 resolved hypoMg repleted COPD exacerbation IV methylprednisolone -> PO prednisone taper, continue nebs standing/prn ascites due to portal HTN [SAAG >1.1] cell count and culture negative for SBP changed IV to PO furosemide and added spironolactone; monitor BMP hepatic encephalopathy rifaximin; hold lactulose due to diarrhea [giving Imodium now; Cdiff negative + GI panel negative] thrombocytopenia due to cirrhosis + infection; monitor daily [appears to have reached matthew]; avoid heparin EtOH hepatitis/cirrhosis LFTs improved pt and aware that he has decompensated cirrhosis given ascites + encephalopathy and the only hope for his liver is to abstain from EtOH and seek outpt GI care and transplant evaluation AUD, no withdrawal syndrome hold further phenobarbital, give thiamine/folate/multivitamin. Addiction Medicine consulted; pt not interested in abstinence DM2 alin-dose lispro VTE ppx SCDs - low plts dispo STR reason for continued hospitalization:awaiting placement Total time managing care of this patient today: 40 minutes. Quality Stroke Does the patient have a stroke diagnosis?: No VTE Prior VTE?: No VTE Risk Level:: Medical - moderate - high VTE Device Contraindication: N/A - Device Ordered VTE Drug Contraindication: N/A - Med Ordered
[2023-09-15 11:52] LABS: Glucose, Whole Blood 479 mg/dL (60-115)
[2023-09-15] MEDS: levoFLOXacin 750 MG TABLET PO (12:12)
[2023-09-15] MEDS: Sodium,Potassium Phosphates POWD.PACK 2 PACKET PO (12:12)
--- NOTE | 2023-09-15 12:59 | MHC.CM.PN ---
EMR REVIEWED, P.T. RECOMMENDING STR, REFERRAL PLACED W/INS PROVIDER SEARCH NOT MANY FACILITIES ARE CONTRACTED W/[employer], [facility] FOLLOWING HOWEVER HAVE NOT YET OFFERED A BED, [facility] CURRENTLY REVIEWING, CM WILL CONT TO FOLLOW REFERRAL AND DC NEEDS.
[2023-09-15 16:36] LABS: Glucose, Whole Blood 391 mg/dL (60-115)
[2023-09-15] MEDS: Insulin Lispro 100 UNIT/ML 3 ML VIAL 10 UNIT SUBCUT (17:23)
[2023-09-15 19:54] LABS: Glucose, Whole Blood 292 mg/dL (60-115)
[2023-09-15] MEDS: Atorvastatin Calcium 40 MG TABLET PO (21:13)
[2023-09-16] MEDS: Loperamide HCl 2 MG CAPSULE PO ×2 (02:05→14:41)
[2023-09-16 03:44] VITALS: BP 134/75; PULSE 99; RESP 17; TEMP 37.1; O2SAT 92
[2023-09-16] MEDS: metroNIDAZOLE 500 MG TABLET PO ×3 (04:31→20:47)
[2023-09-16 06:00] VITALS: BMI 35.8
[2023-09-16 06:16] LABS: MANUAL DIFF FLAG NO
[2023-09-16 06:24] LABS: Basophils Percent Auto 0.3 % (0-2); Eosinophils Absolute Auto 0.2 X10*3/uL (0.0-0.4); Eosinophils Percent Auto 2.4 % (0-4); Hematocrit 37.4 % (42.0-52.0); Hemoglobin 12.7 g/dl (14.0-18.0); Imm Gran Abs Auto 0.07 X10*3/uL (0.00-0.03); Imm Gran Pct Auto 0.9 % (0.0-0.4); Lymphocytes Absolute Auto 0.9 X10*3/uL (1.2-4.9); Lymphocytes Percent Auto 11.7 % (20-40); Mean Corpuscular Hemoglobin 38.6 pg (27.0-33.0); Mean Corpuscular Volume 113.7 fL (80.0-98.0); Mean Platelet Volume 11.6 fL (9.4-12.4); Monocytes Absolute Auto 1.3 X10*3/uL (0.1-1.2); Monocytes Percent Auto 17.5 % (2-11); Neutrophils Absolute Auto 5.1 x10*3/uL (2.0-8.3); Neutrophils Percent Auto 67.2 % (45-73); Platelet Count 54 X10*3/uL (160-400); Red Blood Count 3.29 X10*6/uL (4.60-5.80); Red Cell Distribution Width 18.7 % (11.0-16.0); White Blood Count 7.6 X10*3/uL (4.8-10.8)
[2023-09-16 06:35] LABS: Anion Gap 12 (12-20); Blood Urea Nitrogen 11 mg/dL (9-16); Carbon Dioxide 33 mmol/L (22-29); Chloride 97 mmol/L (96-108); Creatinine Clr Calc Pharmacy 141.6; Estimated Glomerular Filt Rate > 60; Glucose Random 234 mg/dL (60-115); Magnesium 1.7 mg/dL (1.6-2.6); Phosphorus 1.5 mg/dL (2.7-4.5); Potassium 3.5 mmol/L (3.3-5.1); Sodium 138 mmol/L (135-145)
[2023-09-16 07:23] LABS: Glucose, Whole Blood 253 mg/dL (60-115)
[2023-09-16 08:00] VITALS: BP 140/84; PULSE 102; RESP 20; TEMP 36.3; O2SAT 95
[2023-09-16] MEDS: Thiamine HCL 100 MG in 0.9 % Sodium Chloride 100 ML 202 MG IV (08:22)
[2023-09-16] MEDS: Insulin Lispro 100 UNIT/ML 3 ML VIAL SUBCUT ×4 (08:24→21:21)
[2023-09-16] MEDS: Folic Acid 1 MG TABLET PO (08:25)
[2023-09-16] MEDS: Spironolactone 25 MG TABLET 50 MG PO (08:25)
[2023-09-16] MEDS: rifAXIMin 550 MG TABLET PO ×2 (08:25→20:47)
[2023-09-16] MEDS: Magnesium Oxide 400 MG TABLET PO ×2 (08:25→17:07)
[2023-09-16] MEDS: Pregabalin 200 MG CAPSULE PO ×3 (08:25→20:47)
[2023-09-16] MEDS: Furosemide 20 MG TABLET PO (08:26)
[2023-09-16] MEDS: predniSONE 20 MG TABLET 40 MG PO (08:26)
[2023-09-16] MEDS: Multivitamin TABLET 1 TAB PO (08:26)
[2023-09-16] MEDS: Aspirin 81 MG TAB.CHEW PO (08:26)
[2023-09-16] MEDS: Nystatin Cream 15 GM TUBE 1 APPL TOPICAL ×2 (08:27→20:49)
[2023-09-16] MEDS: Sodium,Potassium Phosphates POWD.PACK 2 PACKET PO (08:27)
[2023-09-16] MEDS: 0.9 % Sodium Chloride Flush 3 ML SYRINGE IVFLUSH ×2 (08:27→14:41)
--- NOTE | 2023-09-16 09:48 | P.PNIM_ITS ---
Subjective Subjective Date of Service: 09/16/23 Interval History: weakness, Physical Exam 2 Vital Signs: Vital Signs: Last Vital Signs Temp 97.3 F 09/16/23 08:00 Pulse 102 H 09/16/23 08:00 Resp 20 09/16/23 08:00 BP 140/84 H 09/16/23 08:00 Pulse Ox 95 09/16/23 08:00 O2 Del Method Nasal Cannula 09/16/23 08:00 O2 Flow Rate 3 09/16/23 08:00 FiO2 40 09/11/23 11:00 Oxygen Flow Rate 6 09/10/23 11:13 BMI result Body Mass Index 35.8 Gen: in no acute distress HEENT: sclera icteric, moist mucus membranes Neck: supple Lungs: diminished Heart: regular, no murmurs Abd: soft, ascites present, no leak at paracentesis site, no tenderness Ext: 1+ edema Skin: warm/well-perfused Neuro: alert and oriented x3, no focal findings, no asterixis Psych: appropriate affect Objective Data Active Medications Acetaminophen (Acetaminophen 325 Mg Tablet) 650 mg PO Q6H PRN PRN Reason: Pain, Mild (Pain Scale 1-3) Last Admin: 09/14/23 05:41 Dose: 650 mg Documented By: NEHAL Albuterol Sulfate (Albuterol Sulfate (0.083%) 2.5 Mg/3 Ml Vial.Neb) 2.5 mg INHALE Q2H PRN PRN Reason: Shortness of Breath/Wheezing Albuterol/Ipratropium (Albuterol/Iprat 2.5/0.5mg 3 Ml Ampul.Neb) 3 ml INHALE Q4H PRN PRN Reason: Wheezing Last Admin: 09/15/23 03:31 Dose: 3 ml Documented By: TAE Aspirin (Aspirin 81 Mg Tab.Chew) 81 mg PO DAILY [facility] Last Admin: 09/16/23 08:26 Dose: 81 mg Documented By: LILIANA Atorvastatin Calcium (Atorvastatin Calcium 40 Mg Tablet) 40 mg PO BEDTIME [facility] Last Admin: 09/15/23 21:13 Dose: 40 mg Documented By: CLEVE Folic Acid (Folic Acid 1 Mg Tablet) 1 mg PO DAILY [facility] Last Admin: 09/16/23 08:25 Dose: 1 mg Documented By: LILIANA Furosemide (Furosemide 20 Mg Tablet) 20 mg PO DAILY [facility]; Protocol Last Admin: 09/16/23 08:26 Dose: 20 mg Documented By: LILIANA Glucose (Glucose Gel 15 Gm Gel..Gram.) 15 gm PO Q15M PRN; Protocol PRN Reason: per Hypoglycemia Standing Ord. Dextrose (D10) 250 mls @ 750 mls/hr IV Q15M PRN; Protocol PRN Reason: per Hypoglycemia Standing Ord. Thiamine HCl 100 mg/ Sodium (Chloride) 101 mls @ 202 mls/hr IV DAILY [facility] Last Infusion: 09/16/23 09:01 Dose: Infused Documented By: LILIANA Insulin Human Lispro (Insulin Lispro 100 Unit/Ml 3 Ml Vial) 0 unit SUBCUT QIDACHS [facility]; Protocol Last Admin: 09/16/23 08:24 Dose: 6 unit Documented By: LILIANA Lactulose (Lactulose 20 Gm/30 Ml Solution) 20 gm PO QID [facility] Last Admin: 09/13/23 08:50 Dose: Not Given Documented By: SAGE Non-Admin Reason: hold per Levofloxacin (Levofloxacin 750 Mg Tablet) 750 mg PO Q24H [facility] Stop: 09/17/23 23:55 Last Admin: 09/15/23 12:12 Dose: 750 mg Documented By: AMALIA Loperamide HCl (Loperamide Hcl 2 Mg Capsule) 2 mg PO Q4H PRN PRN Reason: diarrhoea Last Admin: 09/16/23 02:05 Dose: 2 mg Documented By: CLEVE Magnesium Oxide (Magnesium Oxide 400 Mg Tablet) 400 mg PO BIDPC [facility] Last Admin: 09/16/23 08:25 Dose: 400 mg Documented By: LILIANA Metronidazole (Metronidazole 500 Mg Tablet) 500 mg PO Q8H [facility] Stop: 09/17/23 23:55 Last Admin: 09/16/23 04:31 Dose: 500 mg Documented By: CLEVE Multivitamins/Vitamin C (Multivitamin Tablet) 1 tab PO DAILY [facility] Last Admin: 09/16/23 08:26 Dose: 1 tab Documented By: LILIANA Nystatin (Nystatin Cream 15 Gm Tube) 1 appl TOPICAL BID [facility]; Protocol Last Admin: 09/16/23 08:27 Dose: 1 appl Documented By: LILIANA Pharmacy Consult (Consult Rx Etoh Phenob Im/Po) 1 each MISCELLANE ONCE PRN; Protocol PRN Reason: Consult order Prednisone (Prednisone 20 Mg Tablet) 40 mg PO DAILY [facility]; Taper Stop: 09/24/23 08:59 Last Admin: 09/16/23 08:26 Dose: 40 mg Documented By: LILIANA Pregabalin (Pregabalin 200 Mg Capsule) 200 mg PO TID [facility] Last Admin: 09/16/23 08:25 Dose: 200 mg Documented By: LILIANA Rifaximin (Rifaximin 550 Mg Tablet) 550 mg PO BID [facility] Last Admin: 09/16/23 08:25 Dose: 550 mg Documented By: LILIANA Sodium Chloride (0.9 % Sodium Chloride Flush 3 Ml Syringe) 3 ml IVFLUSH QSHIFT [facility] Last Admin: 09/16/23 08:27 Dose: 3 ml Documented By: LILIANA Spironolactone (Spironolactone 25 Mg Tablet) 50 mg PO DAILY [facility]; Protocol Last Admin: 09/16/23 08:25 Dose: 50 mg Documented By: LILIANA Labs 09/16/23 05:59 09/16/23 05:59 Labs: Laboratory Results - last 24 hr 09/15/23 09/15/23 09/15/23 11:42 16:29 19:45 MCV MCH MCHC RDW Plt Count MPV Immature Gran % (Auto) Neut % (Auto) Lymph % (Auto) Sebastian % (Auto) Eos % (Auto) Baso % (Auto) Lymph # (Auto) Sebastian # (Auto) Eos # (Auto) Baso # (Auto) Abs Immat Gran (auto) Absolute Neuts (auto) Absolute Nucleated RBC Nucleated RBC % (auto) Anion Gap Estim Creat Clear Calc Estimated GFR POC Glucose 479 H* 391 H* 292 H Random Glucose Calcium Phosphorus Magnesium 09/16/23 09/16/23 05:59 07:07 MCV 113.7 H MCH 38.6 H MCHC 34.0 RDW 18.7 H Plt Count 54 L MPV 11.6 Immature Gran % (Auto) 0.9 H Neut % (Auto) 67.2 Lymph % (Auto) 11.7 L Sebastian % (Auto) 17.5 H Eos % (Auto) 2.4 Baso % (Auto) 0.3 Lymph # (Auto) 0.9 L Sebastian # (Auto) 1.3 H Eos # (Auto) 0.2 Baso # (Auto) 0.0 Abs Immat Gran (auto) 0.07 H Absolute Neuts (auto) 5.1 Absolute Nucleated RBC 0.000 Nucleated RBC % (auto) 0.0 Anion Gap 12 Estim Creat Clear Calc 141.6 Estimated GFR > 60 POC Glucose 253 H Random Glucose 234 H Calcium 8.0 L Phosphorus 1.5 L Magnesium 1.7 Microbiology Microbiology Results: Microbiology 09/10/23 16:10 Gram Stain - Final Abdominal Fluid Routine Culture - Final No growth after 2 days Anaerobic Culture - Final NO GROWTH AFTER 5 DAYS 09/10/23 11:36 Blood Culture - Final Blood - Venous No growth after 5 days. 09/10/23 11:22 Blood Culture - Final Blood - Venous No growth after 5 days. Assessment and Plan (1) Pneumonia: Status: [facility] d7 57yo M with COPD, EtOH + HCV cirrhosis, seizure disorder, hx trachestomy, hx angioedema provoked by pineapples, diastolic HF, and DM2 who presented to the [facility] [place] [place] ED with acute dyspnea starting when he woke up the day of presentation. His visiting nurse called EMS and he was found to have labored breathing and hypoxia with RA SAo2 88%. En route, he was briefly on CPAP and bagged due to being unresponsive. In the ED, he was placed on HFNC. Initial BP in the ED 89/59. He was thrombocytopneic, mildly coagulopathic, and severely hypokalemic and hypomagnesemic as well as having RADHA, elevated birirubin, and transaminitis with AST>ALT. Notably, ammonia level was 156. Serum EtOH <10 and urine drug screen negative. Lactate was elevated to 3. He was given 100g of IV albumin. CT angio of the chest was limited by motion, but did not show any large PE. He did have a small infiltrate of the RML + RLL. CT of the abdomen and pelvis showed a small amount of ascites, distended gallbladder, enlarged fatty liver, new pancreatic cysts possibly suggestive of pseudocysts from prior pancreatitis, and teran-colitis. He was given levofloxacin and metronidazole, and a dose of methylprednisolone. BP improved to 107/64 after 5 mg of PO midodrine. He was given a dose of lactulose. He was also given potassium and magnesium. A paracentesis was done and 2.6L was removed and sent for fluid studies. Finally, he was loaded with phenobarbital IM but became extremely somnolent with concern for airway protection, so he was admitted to the ICU. In the ICU, he was managed with HFNC then weaned to NC and stepped down to the telemetry unit on 09/11/23. AHRF -continue to wean O2 as tolerated; currently on 2L O2 pneumococcal PNA pancolitis levofloxacin 09/09-09/16, metronidazole 09/09-09/16, BCx negative, urinary antigen for pneumococcus POSITIVE, PCT came down RADHA, prerenal -resolved with fluid resuscitation hypoK hypoPO4 replaced hypoMg repleted COPD exacerbation IV methylprednisolone -> PO prednisone taper, continue nebs standing/prn ascites due to portal HTN [SAAG >1.1] cell count and culture negative for SBP changed IV to PO furosemide and added spironolactone; monitor BMP hepatic encephalopathy rifaximin; hold lactulose due to diarrhea [giving Imodium now; Cdiff negative + GI panel negative] thrombocytopenia due to cirrhosis + infection; monitor daily [appears to have reached matthew]; avoid heparin EtOH hepatitis/cirrhosis LFTs improved pt and aware that he has decompensated cirrhosis given ascites + encephalopathy and the only hope for his liver is to abstain from EtOH and seek outpt GI care and transplant evaluation AUD, no withdrawal syndrome hold further phenobarbital, give thiamine/folate/multivitamin. Addiction Medicine consulted; pt not interested in abstinence DM2 alin-dose lispro VTE ppx SCDs - low plts dispo STR reason for continued hospitalization:awaiting placement Total time managing care of this patient today: 40 minutes. Quality Stroke Does the patient have a stroke diagnosis?: No VTE Prior VTE?: No VTE Risk Level:: Medical - moderate - high VTE Device Contraindication: N/A - Device Ordered VTE Drug Contraindication: N/A - Med Ordered
[2023-09-16 10:42] LABS: Total Protein Peritoneal Fluid 0.9
[2023-09-16 10:44] VITALS: BP 140/84; PULSE 102; O2SAT 95
[2023-09-16 11:57] LABS: Glucose, Whole Blood 389 mg/dL (60-115)
[2023-09-16 12:00] VITALS: BP 139/91; PULSE 100; RESP 20; TEMP 36.6; O2SAT 91
[2023-09-16] MEDS: Insulin Lispro 100 UNIT/ML 3 ML VIAL 10 UNIT SUBCUT (12:07)
[2023-09-16] MEDS: levoFLOXacin 750 MG TABLET PO (12:07)
[2023-09-16 12:50] LABS: Estimated Average Glucose 117 mg/dL; Hemoglobin A1c % 5.7 % (<6.0)
--- NOTE | 2023-09-16 13:01 | MHC.CM.PN ---
CM spoke with pt re: STR, at this time, none accepting due to bed availability and not accepting his insurance. He said he will go to a STR in the local area, but not out of the area, so that his can visit him. Referrals to area SNFs have been sent.
[2023-09-16 16:00] VITALS: BP 159/71; PULSE 95; RESP 14; TEMP 36.1; O2SAT 92
[2023-09-16 16:36] LABS: Glucose, Whole Blood 349 mg/dL (60-115)
[2023-09-16 19:50] VITALS: BP 121/64; PULSE 82; RESP 14; TEMP 36.1; O2SAT 92
[2023-09-16] MEDS: Atorvastatin Calcium 40 MG TABLET PO (20:47)
[2023-09-16 21:10] LABS: Glucose, Whole Blood 362 mg/dL (60-115)
[2023-09-17] VITALS: BP 153/77; PULSE 91; RESP 20; TEMP 36.6; O2SAT 94
[2023-09-17 03:53] VITALS: BP 150/84; PULSE 92; RESP 20; TEMP 37.7; O2SAT 94
[2023-09-17] MEDS: metroNIDAZOLE 500 MG TABLET PO ×2 (04:26→12:11)
[2023-09-17] MEDS: Loperamide HCl 2 MG CAPSULE PO (04:26)
[2023-09-17 06:46] LABS: MANUAL DIFF FLAG NO
[2023-09-17 06:52] LABS: Basophils Percent Auto 0.3 % (0-2); Eosinophils Absolute Auto 0.2 X10*3/uL (0.0-0.4); Eosinophils Percent Auto 2.6 % (0-4); Hematocrit 36.1 % (42.0-52.0); Hemoglobin 12.5 g/dl (14.0-18.0); Imm Gran Abs Auto 0.07 X10*3/uL (0.00-0.03); Lymphocytes Absolute Auto 0.9 X10*3/uL (1.2-4.9); Lymphocytes Percent Auto 12.4 % (20-40); Mean Corpuscular HGB Conc 34.6 g/dl (31.0-36.0); Mean Corpuscular Hemoglobin 39.1 pg (27.0-33.0); Mean Platelet Volume 12.1 fL (9.4-12.4); Monocytes Absolute Auto 1.2 X10*3/uL (0.1-1.2); Monocytes Percent Auto 16.8 % (2-11); Neutrophils Absolute Auto 4.6 x10*3/uL (2.0-8.3); Neutrophils Percent Auto 66.9 % (45-73); Red Cell Distribution Width 18.6 % (11.0-16.0); White Blood Count 6.9 X10*3/uL (4.8-10.8)
[2023-09-17 06:53] LABS: Mean Corpuscular Volume 112.8 fL (80.0-98.0); Platelet Count 63 X10*3/uL (160-400)
[2023-09-17 07:10] LABS: Anion Gap 11 (12-20); Blood Urea Nitrogen 11 mg/dL (9-16); Carbon Dioxide 30 mmol/L (22-29); Chloride 101 mmol/L (96-108); Creatinine Clr Calc Pharmacy 151.7; Estimated Glomerular Filt Rate > 60; Glucose Random 284 mg/dL (60-115); Magnesium 1.7 mg/dL (1.6-2.6); Phosphorus 2.2 mg/dL (2.7-4.5); Potassium 3.4 mmol/L (3.3-5.1); Sodium 139 mmol/L (135-145)
[2023-09-17 07:30] LABS: Glucose, Whole Blood 347 mg/dL (60-115)
[2023-09-17 07:33] VITALS: BP 137/87; PULSE 100; RESP 20; TEMP 36.3; O2SAT 92
[2023-09-17] MEDS: Insulin Lispro 100 UNIT/ML 3 ML VIAL SUBCUT ×2 (08:24→12:11)
[2023-09-17] MEDS: Thiamine HCL 100 MG in 0.9 % Sodium Chloride 100 ML 202 MG IV (08:25)
[2023-09-17 08:26] VITALS: BP 137/87
[2023-09-17] MEDS: predniSONE 20 MG TABLET 40 MG PO (08:26)
[2023-09-17] MEDS: Multivitamin TABLET 1 TAB PO (08:26)
[2023-09-17] MEDS: Magnesium Oxide 400 MG TABLET PO (08:26)
[2023-09-17] MEDS: Furosemide 20 MG TABLET PO (08:26)
[2023-09-17] MEDS: rifAXIMin 550 MG TABLET PO (08:26)
[2023-09-17] MEDS: Folic Acid 1 MG TABLET PO (08:26)
[2023-09-17] MEDS: Spironolactone 25 MG TABLET 50 MG PO (08:26)
[2023-09-17] MEDS: Pregabalin 200 MG CAPSULE PO (08:26)
[2023-09-17] MEDS: 0.9 % Sodium Chloride Flush 3 ML SYRINGE IVFLUSH (08:27)
[2023-09-17] MEDS: Aspirin 81 MG TAB.CHEW PO (08:27)
[2023-09-17 09:41] VITALS: PULSE 103; PULSE 131; O2SAT 91; O2SAT 94
--- NOTE | 2023-09-17 10:19 | HO.PM.IMPN ---
Subjective Subjective Date of Service: 09/17/23 Interval History: improving Physical Exam Vital Signs: Vital Signs: Last Vital Signs Temp 97.4 F 09/17/23 07:33 Pulse 100 09/17/23 07:33 Resp 20 09/17/23 07:33 BP 137/87 09/17/23 08:26 Pulse Ox 92 09/17/23 07:33 O2 Del Method Nasal Cannula 09/17/23 07:33 O2 Flow Rate 2 09/17/23 07:33 FiO2 40 09/11/23 11:00 Oxygen Flow Rate 6 09/10/23 11:13 BMI result Body Mass Index 35.8 Gen: in no acute distress HEENT: sclera icteric, moist mucus membranes Neck: supple Lungs: diminished Heart: regular, no murmurs Abd: soft, ascites present, no leak at paracentesis site, no tenderness Ext: 1+ edema Skin: warm/well-perfused Neuro: alert and oriented x3, no focal findings, no asterixis Psych: appropriate affect Objective Data Active Medications Acetaminophen (Acetaminophen 325 Mg Tablet) 650 mg PO Q6H PRN PRN Reason: Pain, Mild (Pain Scale 1-3) Last Admin: 09/14/23 05:41 Dose: 650 mg Documented By: NEHAL Albuterol Sulfate (Albuterol Sulfate (0.083%) 2.5 Mg/3 Ml Vial.Neb) 2.5 mg INHALE Q2H PRN PRN Reason: Shortness of Breath/Wheezing Albuterol/Ipratropium (Albuterol/Iprat 2.5/0.5mg 3 Ml Ampul.Neb) 3 ml INHALE Q4H PRN PRN Reason: Wheezing Last Admin: 09/15/23 03:31 Dose: 3 ml Documented By: TAE Aspirin (Aspirin 81 Mg Tab.Chew) 81 mg PO DAILY [facility] Last Admin: 09/17/23 08:27 Dose: 81 mg Documented By: JULIET Atorvastatin Calcium (Atorvastatin Calcium 40 Mg Tablet) 40 mg PO BEDTIME [facility] Last Admin: 09/16/23 20:47 Dose: 40 mg Documented By: CLEVE Folic Acid (Folic Acid 1 Mg Tablet) 1 mg PO DAILY [facility] Last Admin: 09/17/23 08:26 Dose: 1 mg Documented By: JULIET Furosemide (Furosemide 20 Mg Tablet) 20 mg PO DAILY [facility]; Protocol Last Admin: 09/17/23 08:26 Dose: 20 mg Documented By: JULIET Glucose (Glucose Gel 15 Gm Gel..Gram.) 15 gm PO Q15M PRN; Protocol PRN Reason: per Hypoglycemia Standing Ord. Dextrose (D10) 250 mls @ 750 mls/hr IV Q15M PRN; Protocol PRN Reason: per Hypoglycemia Standing Ord. Thiamine HCl 100 mg/ Sodium (Chloride) 101 mls @ 202 mls/hr IV DAILY [facility] Last Admin: 09/17/23 08:25 Dose: 202 mls/hr Documented By: JULIET Insulin Human Lispro (Insulin Lispro 100 Unit/Ml 3 Ml Vial) 0 unit SUBCUT QIDACHS [facility]; Protocol Last Admin: 09/17/23 08:24 Dose: 8 unit Documented By: JULIET Lactulose (Lactulose 20 Gm/30 Ml Solution) 20 gm PO QID [facility] Last Admin: 09/13/23 08:50 Dose: Not Given Documented By: SAGE Non-Admin Reason: hold per Levofloxacin (Levofloxacin 750 Mg Tablet) 750 mg PO Q24H [facility] Stop: 09/17/23 23:55 Last Admin: 09/16/23 12:07 Dose: 750 mg Documented By: LILIANA Loperamide HCl (Loperamide Hcl 2 Mg Capsule) 2 mg PO Q4H PRN PRN Reason: diarrhoea Last Admin: 09/17/23 04:26 Dose: 2 mg Documented By: CLEVE Magnesium Oxide (Magnesium Oxide 400 Mg Tablet) 400 mg PO BIDPC [facility] Last Admin: 09/17/23 08:26 Dose: 400 mg Documented By: JULIET Metronidazole (Metronidazole 500 Mg Tablet) 500 mg PO Q8H [facility] Stop: 09/17/23 23:55 Last Admin: 09/17/23 04:26 Dose: 500 mg Documented By: CLEVE Multivitamins/Vitamin C (Multivitamin Tablet) 1 tab PO DAILY [facility] Last Admin: 09/17/23 08:26 Dose: 1 tab Documented By: JULIET Nystatin (Nystatin Cream 15 Gm Tube) 1 appl TOPICAL BID [facility]; Protocol Last Admin: 09/17/23 08:40 Dose: Not Given Documented By: JULIET Non-Admin Reason: Previously Administered Pharmacy Consult (Consult Rx Etoh Phenob Im/Po) 1 each MISCELLANE ONCE PRN; Protocol PRN Reason: Consult order Prednisone (Prednisone 20 Mg Tablet) 40 mg PO DAILY [facility]; Taper Stop: 09/24/23 08:59 Last Admin: 09/17/23 08:26 Dose: 40 mg Documented By: JULIET Pregabalin (Pregabalin 200 Mg Capsule) 200 mg PO TID [facility] Last Admin: 09/17/23 08:26 Dose: 200 mg Documented By: JULIET Rifaximin (Rifaximin 550 Mg Tablet) 550 mg PO BID [facility] Last Admin: 09/17/23 08:26 Dose: 550 mg Documented By: JULIET Sodium Chloride (0.9 % Sodium Chloride Flush 3 Ml Syringe) 3 ml IVFLUSH QSHIFT [facility] Last Admin: 09/17/23 08:27 Dose: 3 ml Documented By: JULIET Spironolactone (Spironolactone 25 Mg Tablet) 50 mg PO DAILY [facility]; Protocol Last Admin: 09/17/23 08:26 Dose: 50 mg Documented By: JULIET Labs 09/17/23 06:37 09/17/23 06:37 Labs: Laboratory Results - last 24 hr 09/10/23 09/16/23 09/16/23 16:10 05:59 11:37 MCV MCH MCHC RDW Plt Count MPV Immature Gran % (Auto) Neut % (Auto) Lymph % (Auto) Stephens % (Auto) Eos % (Auto) Baso % (Auto) Lymph # (Auto) Stephens # (Auto) Eos # (Auto) Baso # (Auto) Abs Immat Gran (auto) Absolute Neuts (auto) Absolute Nucleated RBC Nucleated RBC % (auto) Anion Gap Estim Creat Clear Calc Estimated GFR POC Glucose 389 H* Random Glucose Estimat Average Glucose 117 Hemoglobin A1c % 5.7 Calcium Phosphorus Magnesium Peritoneal Tot Protein 0.9 09/16/23 09/16/23 09/17/23 16:32 21:06 06:37 MCV 112.8 H MCH 39.1 H MCHC 34.6 RDW 18.6 H Plt Count 63 L MPV 12.1 Immature Gran % (Auto) 1.0 H Neut % (Auto) 66.9 Lymph % (Auto) 12.4 L Stephens % (Auto) 16.8 H Eos % (Auto) 2.6 Baso % (Auto) 0.3 Lymph # (Auto) 0.9 L Stephens # (Auto) 1.2 Eos # (Auto) 0.2 Baso # (Auto) 0.0 Abs Immat Gran (auto) 0.07 H Absolute Neuts (auto) 4.6 Absolute Nucleated RBC 0.000 Nucleated RBC % (auto) 0.0 Anion Gap 11 L Estim Creat Clear Calc 151.7 Estimated GFR > 60 POC Glucose 349 H 362 H* Random Glucose 284 H Estimat Average Glucose Hemoglobin A1c % Calcium 8.0 L Phosphorus 2.2 L Magnesium 1.7 Peritoneal Tot Protein 09/17/23 07:23 MCV MCH MCHC RDW Plt Count MPV Immature Gran % (Auto) Neut % (Auto) Lymph % (Auto) Stephens % (Auto) Eos % (Auto) Baso % (Auto) Lymph # (Auto) Stephens # (Auto) Eos # (Auto) Baso # (Auto) Abs Immat Gran (auto) Absolute Neuts (auto) Absolute Nucleated RBC Nucleated RBC % (auto) Anion Gap Estim Creat Clear Calc Estimated GFR POC Glucose 347 H Random Glucose Estimat Average Glucose Hemoglobin A1c % Calcium Phosphorus Magnesium Peritoneal Tot Protein Microbiology Microbiology Results: Microbiology 09/10/23 16:10 Gram Stain - Final Abdominal Fluid Routine Culture - Final No growth after 2 days Anaerobic Culture - Final NO GROWTH AFTER 5 DAYS Assessment and Plan (1) Pneumonia: [facility]: [facility] 57yo M with COPD, EtOH + HCV cirrhosis, seizure disorder, hx trachestomy, hx angioedema provoked by pineapples, diastolic HF, and DM2 who presented to the [facility] ED with acute dyspnea starting when he woke up the day of presentation. His visiting nurse called EMS and he was found to have labored breathing and hypoxia with RA SAo2 88%. En route, he was briefly on CPAP and bagged due to being unresponsive. In the ED, he was placed on HFNC. Initial BP in the ED 89/59. He was thrombocytopneic, mildly coagulopathic, and severely hypokalemic and hypomagnesemic as well as having RADHA, elevated birirubin, and transaminitis with AST>ALT. Notably, ammonia level was 156. Serum EtOH <10 and urine drug screen negative. Lactate was elevated to 3. He was given 100g of IV albumin. CT angio of the chest was limited by motion, but did not show any large PE. He did have a small infiltrate of the RML + RLL. CT of the abdomen and pelvis showed a small amount of ascites, distended gallbladder, enlarged fatty liver, new pancreatic cysts possibly suggestive of pseudocysts from prior pancreatitis, and teran-colitis. He was given levofloxacin and metronidazole, and a dose of methylprednisolone. BP improved to 107/64 after 5 mg of PO midodrine. He was given a dose of lactulose. He was also given potassium and magnesium. A paracentesis was done and 2.6L was removed and sent for fluid studies. Finally, he was loaded with phenobarbital IM but became extremely somnolent with concern for airway protection, so he was admitted to the ICU. In the ICU, he was managed with HFNC then weaned to NC and stepped down to the telemetry unit on 09/11/23. AHRF now on room air pneumococcal PNA pancolitis completed levofloxacin 09/09-09/16, metronidazole 09/09-09/16, BCx negative, urinary antigen for pneumococcus POSITIVE, PCT came down RADHA, prerenal -resolved with fluid resuscitation hypoK hypoPO4 replaced hypoMg repleted COPD exacerbation IV methylprednisolone -> PO prednisone taper, continue nebs standing/prn ascites due to portal HTN [SAAG >1.1] cell count and culture negative for SBP changed IV to PO furosemide and added spironolactone; monitor BMP hepatic encephalopathy rifaximin; hold lactulose due to diarrhea [giving Imodium now; Cdiff negative + GI panel negative] thrombocytopenia due to cirrhosis + infection; monitor daily [appears to have reached matthew]; avoid heparin EtOH hepatitis/cirrhosis LFTs improved pt and aware that he has decompensated cirrhosis given ascites + encephalopathy and the only hope for his liver is to abstain from EtOH and seek outpt GI care and transplant evaluation AUD, no withdrawal syndrome hold further phenobarbital, give thiamine/folate/multivitamin. Addiction Medicine consulted; pt not interested in abstinence DM2 alin-dose lispro VTE ppx SCDs - low plts dispo STR reason for continued hospitalization:awaiting auth for placement Total time managing care of this patient today: 40 minutes. Quality Stroke Does the patient have a stroke diagnosis?: No VTE Prior VTE?: No VTE Risk Level:: Medical - moderate - high VTE Device Contraindication: N/A - Device Ordered VTE Drug Contraindication: N/A - Med Ordered
[2023-09-17 11:58] LABS: Glucose, Whole Blood 315 mg/dL (60-115)
[2023-09-17 12:00] VITALS: BP 157/89; PULSE 88; RESP 18; TEMP 36.3; O2SAT 90
[2023-09-17] MEDS: levoFLOXacin 750 MG TABLET PO (12:11)
--- NOTE | 2023-09-17 13:10 | MHC.CM.PN ---
PT MEDICALLY CLEARED FOR DC, CM INITIALLY GOING TO DC HOME HOWEVER THEN AGREED TO SMOKING FACILITY, [facility] WAS OFFERING HOWEVER THEN SENT CM A MESSAGE REPORTING THEY ARE NOT CONTRACTED W/PT'S INSURANCE, CM OFFERED FACILITIES OUT OF LOCAL AREA HOWEVER PT REFUSES THEIR VEHICLE WILL NOT MAKE IT VERY FAR AND PT WANTS HIS TO VISIT, CM OFFERED FACILITIES [facility] W/COPAY HOWEVER THEY ARE UNABLE TO AFFORD DAILY COPAY/OOP EXPENSES, CM ALSO OFFERED BLS/[facility] TRANSPORT HOWEVER PT/ DECLINED D/T COST. PT DISCHARGING HOME W/[facility]UMPTION OF [facility] FOR SN/HOME PT, FAMILY WILL TRANSPORT
--- NOTE | 2023-09-17 13:20 | PM.DS ---
DS: Providers Provider Date of Service: 09/17/23 Date of admission: 09/10/23 19:09 Primary care physician: MANDI Gómez Consults: 09/10/23 15:51 Addiction Medicine Routine Consulting Provider: Addiction Covering Reason for consultation: EtOH 09/10/23 21:30 Consult to Wound Care Routine Reason for consultation: Diabetic ulcers to B/L toes, ?fungal/MASD to buttocks/groin DS: Diagnosis Discharge Diagnosis (1) Pneumonia: Status: Acute DS: Summary Hospital Course Hospital Course: from initial hpi: Mr. Weber is a 57 Y M with history of acute hypoxic respiratory failure, COPD, KD, hepatitis-C,? liver cirrhosis, CHF, hypertension, TIA, CAD s/p stent placements, seizure disorder, insulin-dependent DM, alcohol misuse, and prior episodes of angioedema d/t pineapples. He was was brought in by ambulance with difficulty breathing that began this morning. EMS initially had him on CPAP, however, he became momentarily unresponsive and they began bagging him. In the emergency room the patient was alert and stated he felt short of breath. He denied fevers, chills, chest pain, nausea, vomiting, abdominal pain, vision changes, dizziness, changes in urinary or bowel habits. On arrival to the ED, the patient? was afebrile, blood pressure 92/62, heart rate 85, respiratory rate 14, O2 Sat 93% on 6 L OxyMask. ED work-up suggestive of pneumonia, as well as evidence of decompensated cirrhosis.? He was transitioned to [facility] due to acute hypoxic respiratory failure, was given antibiotics for pneumonia,? lactulose for hyperammonemia, and electrolytes were repleted. A paracentesis was done and 2.6L was removed and sent for fluid studies. He was initially admitted to the medical floor but was loaded with phenobarbital IM and became extremely somnolent necessitatting an admission to ICU. Laboratory data significant for? RBC 3.53, hemoglobin 13.8, hematocrit 39.7, platelet 87, PT 14.7, INR 1.2, potassium 2.0, chloride 89, BUN 13, creatinine 1.43, calcium 7.8, magnesium 1.2, total bilirubin 5.1, AST 169, ALT 46, alk-phos 214, ammonia 156, total protein 6.3, albumin 2.6, lactate 3.0.? UA was negative for UTI. Blood cultures, abdominal fluid culture pending. IMAGING:? CXR: Subsegmental atelectasis in the lower lobes and right middle lobe. CT/CT head/brain wo IV con: No intracranial hemorrhage, no fracture, no acute infarct. CT/CT abdomen pelvis w IV con:? Enlarged fatty liver. Distended gallbladder. No gallstones. Small amount of ascites. New pancreatic cysts. These may represent? pseudocysts from prior pancreatitis. No evidence of acute pancreatitis. Diffuse wall thickening and edema of the colon suggestive of pancolitis. CT/CT angio chest PE protocol: No large or central pulmonary embolism. Elevated eventrated right hemidiaphragm and adjacent atelectasis or small infiltrate of the right middle and right lower lobes increased from previous exam. ED course: The patient received a total of 1 L NS, Levofloxacin 500 mg, metronidazole 500 mg, methylprednisolone 125 mg, Mag sulfate 2 g, Klor-Con 40 mEq use, KCl 10 mEq, lactulose 20 g p.o., lactulose 200 g NJ, albumin 100 mL, midodrine 5 mg, phenobarbital 465 mg, thiamine 200 mg. Prior to transfer to the ICU labs were repeated.? Potassium remained low 2.3, 2 hour lactic 1.1,? phosphorus 2.4, magnesium 1.6.?An additional 40 mEq KCL was ordered.? hospital course: Patient was admitted for acute hypoxic respiratory failure secondary to pneumococcal pneumonia, COPD with acute decompensation, severe acute hypokalemia, hypomagnesemia, acute kidney injury, alcoholic hepatitis, alcohol dependence with withdrawal. Was admitted to the intensive care unit weaned off high-flow nasal cannula, given IV antibiotics, fluid resuscitation, electrolyte supplementation, steroids, underwent diagnostic paracentesis that ruled out SBP, started on Lasix and Aldactone, course complicated by acute metabolic encephalopathy due to hepatic encephalopathy, on lactulose and it being held due to diarrhea, should continue as needed for less than 2 bowel movements per day, started on rifaximin. For alcoholic hepatitis patient is encouraged to stop drinking alcohol. For diabetes was continued on insulin. Patient was eventually weaned off of oxygen, was evaluated for home oxygen and did not require. He completed course of antibiotics. Mental status back to baseline. Patient has significant debility and recommendations were to go to short-term rehab, however, patient is not interested at this time and will be discharged home with visiting services. Time Attestation Discharge Coordination Time (in mins): 33 Quality: Safe Use of Opioids Does Pt have an Active Cancer Diagnosis on the Problem List?: No Quality: Stroke Does the patient have a stroke diagnosis?: No Physical Exam Vital Signs: Vital Signs: Last Vital Signs Temp 97.3 F 09/17/23 12:00 Pulse 88 09/17/23 12:00 Resp 18 09/17/23 12:00 BP 157/89 H 09/17/23 12:00 Pulse Ox 90 L 09/17/23 12:00 O2 Del Method Room Air 09/17/23 12:00 O2 Flow Rate 2 09/17/23 07:33 FiO2 40 09/11/23 11:00 Oxygen Flow Rate 6 09/10/23 11:13 BMI result Body Mass Index 35.8 Gen: in no acute distress HEENT: sclera icteric, moist mucus membranes Neck: supple Lungs: diminished Heart: regular, no murmurs Abd: soft, ascites present, no leak at paracentesis site, no tenderness Ext: 1+ edema Skin: warm/well-perfused Neuro: alert and oriented x3, no focal findings, no asterixis Psych: appropriate affect DS: Data Data Completed and Pending Completed studies during hospitalization [Text1]: Pending at discharge 09/10/23 16:10 Cytology [PTH] Stat Procedures Bypass Trachea to Cutaneous with Tracheostomy Device, Percutaneous Approach (05/15/22) Change Tracheostomy Device in Trachea, External Approach (05/15/22) Detoxification Services for Substance Abuse Treatment (07/06/23) Insertion of Endotracheal Airway into Trachea, Via Natural or Artificial Opening (12/04/22) Insertion of Infusion Device into Superior Vena Cava, Percutaneous Approach (07/06/23) Introduction of Vasopressor into Peripheral Vein, Percutaneous Approach (07/06/23) Respiratory Ventilation, 24-96 Consecutive Hours (12/04/22) Respiratory Ventilation, Greater than 96 Consecutive Hours (05/15/22) Transfusion of Nonautologous Frozen Plasma into Peripheral Vein, Percutaneous Approach (12/04/22) Ultrasonography of Superior Vena Cava, Guidance (07/06/23) Labs on day of discharge: Laboratory Results - last 24 hr 09/16/23 09/16/23 09/17/23 16:32 21:06 06:37 WBC 6.9 RBC 3.20 L Hgb 12.5 L Hct 36.1 L MCV 112.8 H MCH 39.1 H MCHC 34.6 RDW 18.6 H Plt Count 63 L MPV 12.1 Immature Gran % (Auto) 1.0 H Neut % (Auto) 66.9 Lymph % (Auto) 12.4 L Mcdonald % (Auto) 16.8 H Eos % (Auto) 2.6 Baso % (Auto) 0.3 Lymph # (Auto) 0.9 L Mcdonald # (Auto) 1.2 Eos # (Auto) 0.2 Baso # (Auto) 0.0 Abs Immat Gran (auto) 0.07 H Absolute Neuts (auto) 4.6 Absolute Nucleated RBC 0.000 Nucleated RBC % (auto) 0.0 Sodium 139 Potassium 3.4 Chloride 101 Carbon Dioxide 30 H Anion Gap 11 L BUN 11 Creatinine 0.70 Estim Creat Clear Calc 151.7 Estimated GFR > 60 POC Glucose 349 H 362 H* Random Glucose 284 H Calcium 8.0 L Phosphorus 2.2 L Magnesium 1.7 09/17/23 09/17/23 07:23 11:53 WBC RBC Hgb Hct MCV MCH MCHC RDW Plt Count MPV Immature Gran % (Auto) Neut % (Auto) Lymph % (Auto) Mcdonald % (Auto) Eos % (Auto) Baso % (Auto) Lymph # (Auto) Mcdonald # (Auto) Eos # (Auto) Baso # (Auto) Abs Immat Gran (auto) Absolute Neuts (auto) Absolute Nucleated RBC Nucleated RBC % (auto) Sodium Potassium Chloride Carbon Dioxide Anion Gap BUN Creatinine Estim Creat Clear Calc Estimated GFR POC Glucose 347 H 315 H Random Glucose Calcium Phosphorus Magnesium Discharge Plan Discharge Anticipated Discharge Date/Time: 09/17/23 13:07 Patient Disposition: Home Health Service Discharge Diagnosis: pneumonia Referrals: Esther Matute [Outside] - 1 Week Lauri Gonzalez FNP-BC [Primary Care Provider] - 1 Week Discharge Medications: New spironolactone 25 mg Tablet 50 mg PO DAILY Qty: 180 0RF Protocol: Hold for SBP< HOLD for SBP < : 90 furosemide 20 mg Tablet 20 mg PO DAILY Qty: 90 0RF Protocol: Hold for SBP< HOLD for SBP < : 90 Xifaxan 550 mg Tablet 550 mg PO BID Qty: 180 0RF lactulose 20 gram/30 mL Solution 20 g PO DAILY PRN (Reason: less than 2 bm per day) 90 Days Qty: 2700 0RF prednisone 20 mg tablet 20 mg PO DAILY Qty: 5 0RF Continued (DME) lancets [BD Ultra-Fine II Lancets] 30 gauge misc See Rx Instructions .Route Qty: 100 0RF Rx Instructions: TID (DME) blood-glucose meter [Accu-Chek Guide Me Glucose Mtr] Misc See Rx Instructions .Route Qty: 1 0RF Rx Instructions: TID testing (DME) pen needle, diabetic [BD Ultra-Fine Mini Pen Needle] 31 gauge x 3/16 needle See Rx Instructions .Route Qty: 100 1RF Rx Instructions: Use to inject insulin once per day folic acid 1 mg tablet 1 mg PO DAILY Qty: 90 1RF atorvastatin 40 mg tablet 40 mg PO DAILY Qty: 90 3RF metoprolol succinate 50 mg tablet extended release 24 hr 100 mg PO DAILY Qty: 180 0RF Rx Instructions: OVERDUE FOR APPT. PLEASE CALL [phone] TO SCHEDULE PPT SO WE CAN CONTINUE REFILLING YOUR MEDICATIONS. insulin glargine [Lantus Solostar U-100 Insulin] 100 unit/mL (3 mL) insulin pen 30 unit subcut DAILY Qty: 30 0RF (DME) Accu-Chek Guide test strips Strip See Rx Instructions .Route Qty: 300 1RF Rx Instructions: tid testing loperamide 2 mg capsule 2 mg PO Q6H PRN (Reason: Diarrhea) Qty: 30 0RF thiamine HCl (vitamin B1) 100 mg tablet 100 mg PO DAILY Qty: 90 0RF multivitamin Tablet 1 tab PO DAILY duloxetine 30 mg capsule,delayed release(DR/EC) 1 cap PO BID aspirin 81 mg Tablet,Delayed Release (Dr/Ec) 81 mg PO DAILY carbamazepine 200 mg tablet 200 mg PO BID pregabalin 200 mg Capsule 200 mg PO TID brimonidine 0.2 % drops 1 drp ophthalmic-Left TID Qty: 5 0RF Rx Instructions: administer approximately 8 hours apart latanoprost 0.005 % drops 1 drp ophthalmic (eye) BEDTIME albuterol sulfate 90 mcg/actuation HFA aerosol inhaler 2 puff inhalation Q6H PRN (Reason: shortness of breath or wheezing) oxycodone 5 mg Tablet 5 mg PO DAILY PRN (Reason: Pain (Scale Score 4-6)) nystatin 100,000 unit/gram powder 1 appl topical TID Qty: 60 1RF Discharge Orders: Discharge Order (Routine); Ordered 09/17/23 Ordered By: Jose Thompson Diet: Advance to usual diet Activity on Discharge: As tolerated Stand Alone Forms: Patient Portal Discharge page Print Language: Sammarinese Care Plan Goals: recovery Health Concerns: cirrhosis, penumonia, etoh dependnce Plan of Treatment: pt, stop etoh, stop smoking Assessment: see above
== END 2023-09-17 14:44 | disposition home health service (06) | DRG 193 ==
LOC: HO.ED 14:28 → HO.EDOVER 19:25 → HO.ICU 19:29 → HO.IMC 09-11 13:03
PROVIDERS: Family Medicine; Internal Medicine Critical Care Medicine; Physician Assistant; Student in an Organized Health Care Education/Training Program; Admitting Provider Nurse Practitioner Family; Emergency Provider Emergency Medicine; PCP Nurse Practitioner Family; Visit Provider Internal Medicine
DX: J13 Pneumonia due to Streptococcus pneumoniae (principal); G92.8 Other toxic encephalopathy; J96.01 Acute respiratory failure with hypoxia; J44.0 Chronic obstructive pulmonary disease with (acute) lower respiratory infection; J44.1 Chronic obstructive pulmonary disease with (acute) exacerbation; K76.6 Portal hypertension; K70.31 Alcoholic cirrhosis of liver with ascites; K76.82 Hepatic encephalopathy; E87.6 Hypokalemia; E83.42 Hypomagnesemia; E11.65 Type 2 diabetes mellitus with hyperglycemia; I25.10 Atherosclerotic heart disease of native coronary artery without angina pectoris; D69.59 Other secondary thrombocytopenia; K70.11 Alcoholic hepatitis with ascites; K52.9 Noninfective gastroenteritis and colitis, unspecified; K76.0 Fatty (change of) liver, not elsewhere classified; F10.10 Alcohol abuse, uncomplicated; D50.9 Iron deficiency anemia, unspecified; G47.33 Obstructive sleep apnea (adult) (pediatric); F17.210 Nicotine dependence, cigarettes, uncomplicated; Z71.6 Tobacco abuse counseling; Z86.19 Personal history of other infectious and parasitic diseases; Z95.5 Presence of coronary angioplasty implant and graft; Z79.4 Long term (current) use of insulin; Z79.82 Long term (current) use of aspirin; Z79.899 Other long term (current) drug therapy
CPT/HCPCS: 36415; 49083; 70450; 71045; 71275; 74177; 80048; 80053; 80076; 80307; 81003; 82040; 82042; 82140; 82150; 82607; 82746; 82803; 82945; 82947; 83036; 83605; 83615; 83735; 83880; 84100; 84145; 84157; 84300; 84443; 84484; 85025; 85027; 85610; 87040; 87070; 87073; 87205; 87449; 87493; 87507; 87899; 88112; 88305; 89051; 93005; 94640; 97116; 97162; 99285; C1758; J0613; J1836; J1940; J1956; J2560; J2919; J3411; J3475; J3480; P9047; Q9967

== ENCOUNTER → 2023-09-10 11:11 | Outpatient (BNV) | payer MEDICARE, SELFPAY | PROVIDERS: Emergency Provider Emergency Medicine; PCP Nurse Practitioner Family; Visit Provider Internal Medicine | DX: R94.31 Abnormal electrocardiogram [ECG] [EKG] (principal) | CPT/HCPCS: 93010 ==

== ENCOUNTER → 2023-09-10 11:22 | Outpatient (BNV) | payer MEDICARE, SELFPAY | PROVIDERS: Emergency Provider Emergency Medicine; PCP Nurse Practitioner Family; Visit Provider Internal Medicine Critical Care Medicine | DX: J18.9 Pneumonia, unspecified organism (principal); F10.939 Alcohol use, unspecified with withdrawal, unspecified; R74.01 Elevation of levels of liver transaminase levels; R18.8 Other ascites; K74.60 Unspecified cirrhosis of liver; K76.82 Hepatic encephalopathy; J96.01 Acute respiratory failure with hypoxia | CPT/HCPCS: 99291; 99499 ==

== ENCOUNTER → 2023-09-10 11:22 | Outpatient (BNV) | payer MEDICARE, SELFPAY | PROVIDERS: Emergency Provider Emergency Medicine; PCP Nurse Practitioner Family; Visit Provider Family Medicine | DX: J18.9 Pneumonia, unspecified organism (principal) | CPT/HCPCS: 99232; 99233; 99239; 99499 ==

== ENCOUNTER → 2023-09-10 12:29 | Outpatient (BNV) | payer MEDICARE, SELFPAY | PROVIDERS: Admitting Provider Nurse Practitioner Family; Emergency Provider Emergency Medicine; PCP Nurse Practitioner Family; Visit Provider Student in an Organized Health Care Education/Training Program | DX: Z00.00 Encounter for general adult medical examination without abnormal findings (principal) | CPT/HCPCS: 99499 ==

== ENCOUNTER → 2023-09-10 19:09 | Outpatient (BNV) | payer MEDICARE, SELFPAY | PROVIDERS: Admitting Provider Nurse Practitioner Family; Emergency Provider Emergency Medicine; PCP Nurse Practitioner Family; Visit Provider Nurse Practitioner Psychiatric/Mental Health | DX: F10.20 Alcohol dependence, uncomplicated (principal) | CPT/HCPCS: 99221 ==

== ENCOUNTER 2023-09-18 10:24 | Emergency (ER) | payer MEDICARE, SELFPAY ==
[2023-09-18] VITALS (9 sets, daily range): BP systolic 110–156; BP diastolic 64–73; PULSE 71–87; RESP 11–18; TEMP 36.5–36.8; O2SAT 90–99; BMI 34.8
--- NOTE | ~2023-09-18 | CT_ITS ---
EXAMINATION: CT HEAD W/O IV CONTRAST CT CERVICAL SPINE W/O IV CONTRAST CLINICAL INFORMATION: History of fall. COMPARISON: Head CT from 09/10/2023. Prior CT exams from 05/25/2023. TECHNIQUE: Head - Contiguous axial imaging of the head was performed from the skull base to the vertex without the administration of intravenous contrast, and axial images are reconstructed at 0.6 mm, 2 mm and 5 mm slice thickness. Cervical spine - A volumetric, helical CT acquisition of the cervical spine was obtained without contrast; in addition to the standard set of axial images, multiplanar reformatted images were provided in the coronal and sagittal imaging planes. This CT examination was performed using dose optimization techniques as appropriate, variously including the following: *Automated exposure control *Adjustment of mA and/or kV according to patient size (this includes techniques or standardized protocols for targeted exams where dose is matched to indication/reason for exam; i.e. extremities or head) *Use of iterative reconstruction technique DLP: 1371 mGy-cm (total) FINDINGS: HEAD: No acute intracranial findings. Corbett to white matter differentiation is preserved. No evidence of intracranial hemorrhage, major vascular territory infarction, focal mass effect or midline shift. Chronic mild parenchymal volume loss with commensurate prominence of ventricles and sulci. No hydrocephalus or extra-axial fluid collections. The calvarium is intact and the visualized paranasal sinuses, mastoid air cells and middle ear cavities are clear. The temporomandibular joints are intact. No evidence of orbital fracture. Again noted is the displaced lens within the left globe (as observed on 05/25/2023). CERVICAL SPINE: The craniocervical junction is normal. The occipital condyles, dens and atlantodental articulation are intact. There is either a congenital defect or old nonunited fracture of the left C1 transverse process. No acute fractures. No prevertebral edema or soft tissue hematoma. No new observations in the cervical spine compared to 05/25/2023. There is chronic reversal of lordosis of the degenerated cervical spine. Again noted is chronic mild degenerative anterolisthesis at C2-C3 which appears to be due to the severe left-sided facet arthropathy at this level, and chronic mild retrolisthesis at C5-C6 and C6-C7. Chronic left central disc extrusion at C3-C4 appears to cause moderate eccentric canal stenosis at this level. Chronic loss of disc height and vertebral osteophyte formation at C4-C5, C5-C6 and C6-C7 (worst at C6-C7). The uncovertebral joints are hypertrophied and neural foraminal stenosis is severe bilaterally at C6-C7. Chronic mild canal stenosis from posterior disc-osteophyte complexes at C4-C5, C5-C6 and C6-C7. Thyroid gland is unremarkable. Nonspecific patchy groundglass opacity is present in the partially visualized right lung apex. CT/CT cervical spine wo IV con IMPRESSION: * No intracranial hemorrhage or other acute intracranial pathology. 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 * No acute fractures within the chronically degenerated cervical spine. * Nonspecific patchy groundglass opacity is partially visualized in the right lung apex.
[2023-09-18 10:36] LABS: Glucose, Whole Blood 365 mg/dL (60-115)
--- NOTE | 2023-09-18 11:00 | ED_ITS ---
HPI - General Adult General Chief complaint: General Medical Stated complaint: WEAKNESS, UNWELL, HYPERGLYCEMIC PER EMS Time Seen by Provider: 09/18/23 10:52 Source: patient and RN notes reviewed Mode of arrival: ambulatory Limitations: no limitations History of Present Illness ED Provider: Sherie Mayfield PA-C HPI narrative: This is a 57-year-old male, with a hx of acute hypoxic respiratory failure, COPD, KD, hepatitis-C,? liver cirrhosis, CHF, hypertension, TIA, CAD s/p stent placements, seizure disorder, insulin-dependent DM, alcohol misuse, and prior episodes of angioedema d/t pineapples, and recent hospital admission for acute hypoxic respiratory failure secondary to pneumococcal pneumonia, COPD with acute decompensation, severe acute hypokalemia, hypomagnesemia, RADHA, alcoholic hepatitis, alcohol dependence with withdrawal, who presents to the ER due to increased global weakness requesting rehabilitation placement. Pt states that yesterday he had weakness in his lower extremities and had a fall as his legs gave out on him. Denies hitting his head or LOC. He has no fevers, chills, headache, dizziness, blurred vision, chest pain, shortness of breath, abdominal pain, nausea, vomiting or diarrhea. He had a recent completed a complicated hospital course, and was discharged: He was admitted to the ICU and was weaned off high-flow nasal cannula, given IV antibiotics, fluid resuscitation, electrolyte supplementation, steroids and underwent a diagnostic paracentesis that ruled out SBP, he was started on Lasix and Aldactone. The course was complicated by acute metabolic encephalopathy due to hepatic encephalopathy on lactulose and it being held due to diarrhea. He was eventually weaned off oxygen, was evaluated for home oxygen and did not require any. He completed the course of antibiotics. His mental status was back to baseline. He has significant disability due to deconditioning and recommendations were to go to short-term rehab however patient was not interested at that time and was discharged home with visiting services. MD complaint: Weakness Onset (ago): week(s) Relieving factors: none Exacerbating factors: none Associated symptoms: denies other symptoms Treatments prior to arrival: none Related Data Home Medications ?Medication ?Instructions ?Recorded ?Confirmed aspirin 81 mg tablet,delayed 81 mg PO DAILY 03/17/22 09/18/23 release duloxetine 30 mg capsule,delayed 1 cap PO BID 03/17/22 09/18/23 release multivitamin 1 tab PO DAILY 03/17/22 09/18/23 carbamazepine 200 mg tablet 200 mg PO BID 12/04/22 09/18/23 pregabalin 200 mg capsule 200 mg PO TID 12/04/22 09/18/23 albuterol sulfate 90 mcg/actuation 2 puff inhalation Q6H PRN 06/07/23 09/18/23 aerosol inhaler shortness of breath or wheezing latanoprost 0.005 % eye drops 1 drp ophthalmic (eye) BEDTIME 06/07/23 09/18/23 oxycodone 5 mg tablet 5 mg PO DAILY PRN Pain (Scale 09/10/23 09/18/23 Score 4-6) Previous Rx's ?Medication ?Instructions ?Recorded Accu-Chek Guide Me Glucose Mtr #1 ea 06/11/22 (blood-glucose meter) lancets 30 gauge (BD Ultra-Fine II #100 ea 06/11/22 Lancets) pen needle, diabetic 31 gauge x #100 ea 03/05/2306/13 (BD Ultra-Fine Mini Pen Needle) folic acid 1 mg tablet 1 mg PO DAILY #90 tabs 03/15/23 atorvastatin 40 mg tablet 40 mg PO DAILY #90 tabs 03/27/23 brimonidine 0.2 % eye drops 1 drp ophthalmic-Left TID #5 mL 05/26/23 metoprolol succinate 50 mg 100 mg (2 x 50 mg) PO DAILY #180 06/10/23 tablet,extended release 24 hr tabs insulin glargine 100 unit/mL (3 30 unit (0.3 mL) subcut DAILY #30 07/18/23 mL) subcutaneous pen (Lantus mL Solostar U-100 Insulin) Accu-Chek Guide test strips (blood #300 ea 07/20/23 sugar diagnostic) loperamide 2 mg capsule 2 mg PO Q6H PRN Diarrhea #30 caps 07/26/23 thiamine HCl (vitamin B1) 100 mg 100 mg PO DAILY #90 tabs 07/26/23 tablet nystatin 100,000 unit/gram topical 1 appl topical TID #60 grams 08/08/23 powder furosemide 20 mg tablet 20 mg PO DAILY #90 tabs 09/17/23 lactulose 20 gram/30 mL oral 20 g (30 mL) PO DAILY PRN less 09/17/23 solution than 2 bm per day 90 days #2,700 mL prednisone 20 mg tablet 20 mg PO DAILY #5 tabs 09/17/23 rifaximin 550 mg tablet (Xifaxan) 550 mg PO BID #180 tabs 09/17/23 spironolactone 25 mg tablet 50 mg PO DAILY #180 tabs 09/17/23 Allergies Allergy/AdvReac Type Severity Reaction Status Date / Time pineapple Allergy Severe Anaphylaxis Verified 09/18/23 10:33 cyclobenzaprine Allergy Unknown RASH Verified 09/18/23 10:33 [From FLEXERIL] penicillin V Allergy Unknown anaphylaxis Verified 09/18/23 10:33 FADIA Inhibitors AdvReac Severe Angioedema Verified 09/18/23 10:33 Review of Systems 2 Review of Systems: Yes all other systems are reviewed and are negative Constitutional: Constitutional: Reports as per [facility] Past Medical History Attestation statement: The following information was validated with the patient. Medical History Thrombocytopenia Pneumonia COPD (chronic obstructive pulmonary disease) Diabetes Nicotine dependence, cigarettes, uncomplicated Tracheostomy care Respiratory failure Diastolic CHF Seizure disorder History of TIA (transient ischemic attack) History of hepatitis C CAD (coronary artery disease) HTN (hypertension) Insulin dependent type 2 diabetes mellitus Diabetic neuropathy Restrictive airway disease KD (obstructive sleep apnea) ETOH abuse Morbid obesity Transaminitis Fatty liver History of colon polyps Obesity Microalbuminuria Foot ulcer, left Fracture of right tibia and fibula Metatarsal bone fracture Surgical History History of surgery on lower extremity (~2019) History of lumbar spinal fusion History of colonoscopy (~2018) History of hernia repair History of cardiac catheterization (~2018) Family History Family History Father CVD (cardiovascular disease) Colon cancer Mother No problems noted. Brother Liver cancer Paternal Aunt Colon cancer Social History Social History Household Members: Spouse Household Members Other:: Housing: House Do you presently have visiting nurse or other home services: Yes Unable to assess alcohol history related to: Unable to respond Alcohol intake: former Patient Tobacco Use Status: Never used Tobacco Tobacco use type: Cigarette Years Smoked: onset 18yo, 1-2ppd x 37yrsm now 1/2ppd - 50pyh Smoked in Last 30 Days: Yes Second Hand Smoke Exposure: Yes Use of substances other than those prescribed or required for medical reasons: No Substance Use Type: Marijuana Advance Directives: Yes Advance Directives on File: Yes Advance Directives Date on File: 03/20/22 service: No Current occupational status: disabled Current occupation: right handed Cognitive needs: No Hearing needs: No Vision needs: No Physical Exam ED Vital Signs: Vital Signs - 24 hr 09/18/23 16:00 09/18/23 17:03 09/18/23 18:00 Temperature 97.7 F Pulse Rate 77 74 71 Respiratory Rate 11 L 16 12 Blood Pressure 112/64 112/64 Pulse Oximetry 95 91 L 91 L Oxygen Delivery Method Nasal Cannula Room Air Nasal Cannula Oxygen Flow Rate 1 1 09/18/23 20:38 09/19/23 06:14 09/19/23 07:27 Temperature 97.9 F 98.2 F Pulse Rate 78 90 90 Respiratory Rate 17 20 Blood Pressure 115/71 130/77 130/77 Pulse Oximetry 92 97 97 Oxygen Delivery Method Room Air Room Air Oxygen Flow Rate 09/19/23 07:44 09/19/23 07:44 09/19/23 08:00 Temperature 98.6 F Pulse Rate 90 86 Respiratory Rate 18 Blood Pressure 130/77 130/77 117/73 Pulse Oximetry 90 L Oxygen Delivery Method Room Air Oxygen Flow Rate 09/19/23 08:47 Temperature Pulse Rate Respiratory Rate Blood Pressure 117/73 Pulse Oximetry Oxygen Delivery Method Oxygen Flow Rate BMI result Body Mass Index 34.8 Const General: cooperative, comfortable and no acute distress Orientation/consciousness: patient oriented x3 Limitations: no limitations [facility] Head: Yes normal to inspection, Yes normocephalic and Yes atraumatic Ears: hearing grossly normal bilaterally General nose exam: Normal external nose present Face and sinus: Yes normal facial exam Mouth: Normal oral and palatal mucosa present, oropharynx normal and moist mucous membranes Throat: Yes posterior oropharynx normal Eyes General: appearance normal, both eyes and all related structures Eyelids: Yes eyelids normal Conjunctivae: conjunctivae normal Sclerae: sclerae normal Pupils: Equal, round and reactive pupils present EOM: EOMs intact bilaterally Neck Neck: Yes normal visual inspection, Yes full ROM and Yes no lymphadenopathy Lymphatic: no lymphadenopathy noted Chest Chest palpation & inspection: normal inspection of the chest Resp Other: Diminished throughout all lung horan Effort & Inspection: normal respiratory effort and able to speak in complete sentences Cardio Rate: regular rate Rhythm: regular rhythm Heart sounds: S1 normal heart sound present and S2 normal heart sound present GI Other: Distended abdomen, nontender throughout. Inspection: Yes normal to inspection Skin General skin exam: no rashes or lesions noted Trauma: no lacerations or abrasions Wounds: no wounds Neuro General: patient oriented x3 and moves all extremities Cranial nerves: Yes CN's II-XII intact bilaterally and Yes Equal, round and reactive pupils present Cognition (Neuro): normal cognition Motor exam (neuro): 5/5 motor strength present throughout and Pronator motor function not present Extrem Other: 1+ pitting edema noted bilaterally. General: Yes normal to inspection Right upper extremity: normal to inspection Left upper extremity: normal to inspection Right lower extremity: normal to inspection Left lower extremity: normal to inspection Course Reevaluation(s) Reevaluation #1: Patient hyperglycemic at 365. Patient will be given 10 units of insulin lispro. Time: 12:55 Reevaluation #2: Repeat point of care 355. will administer 500cc of IV fluids and recheck POC. Patient states that he is feeling ?great?, he has no current complaints at this time. Patient with chronic macrocytic anemia, with an H&H of 12.4/36.4, hyperglycemia at 391, total bili 3.1, direct bili 2.3, AST 58, alk phos 239, lipase 214. Patient has a history of elevated bilirubin, this appears to be improved since hospitalization. Liver transaminases also elevated however improved since hospitalization. Alk-phos slightly elevated, however this is around his baseline. Albumin low at 2.7. Lipase 214 improved from previous hospitalization. Patient is not hypoxic at this time, saturating between 92 and 96 on room air. Patient was on 2 L nasal cannula however this was turned off as patient was monitored, stable at 91% on room air. Given complexity, I had my attending physician, Dr. Diego review case to see if he qualifies for hospital admission for weakness vs medical clearance for case management. At this time, patient likely going to be case management as he does not meet admission criteria at this time. Chest x-ray result as well as BNP is pending at this time. Sign out given to my attending Dr. Diego pending BNP, chest x-ray, and case management Time: 16:45 Reevaluation #3: Physician observation continued. Patient denied any distress. Patient will be discharged to [facility] at 5:00pm. Time: 15:20 Medications Administered Generic Name Dose Route Start Last Admin Trade Name Freq PRN Reason Stop Dose Admin Aspirin 81 mg 09/19/23 09:00 09/19/23 07:45 Aspirin Enteric Coated 81 Mg Tablet. PO 81 mg DAILY JAMEEL Administration Atorvastatin Calcium 40 mg 09/19/23 09:00 09/19/23 07:44 Atorvastatin Calcium 40 Mg Tablet PO 40 mg DAILY JAMEEL Administration Brimonidine Tartrate 1 drop 09/19/23 09:00 09/19/23 08:46 Brimonidine Tartrate 0.2% Oph 5 Ml Bottle EYE-LEFT 1 drop TID JAMEEL Administration Carbamazepine 200 mg 09/18/23 23:00 09/19/23 08:46 Carbamazepine 200 Mg Tablet PO 200 mg BID JAMEEL Administration Duloxetine HCl 30 mg 09/18/23 23:00 09/19/23 07:44 Duloxetine Hcl 30 Mg Capsule. PO 30 mg BID JAMEEL Administration Folic Acid 1 mg 09/19/23 09:00 09/19/23 07:44 Folic Acid 1 Mg Tablet PO 1 mg DAILY JAMEEL Administration Furosemide 20 mg 09/19/23 09:00 09/19/23 07:44 Furosemide 20 Mg Tablet PO 20 mg DAILY JAMEEL Administration Protocol Insulin Glargine 30 unit 09/19/23 09:00 09/19/23 07:45 Insulin Glargine,Hum.Rec.Anlog 100 Unit/Ml 10 Ml Vial SUBCUT 30 unit DAILY JAMEEL Administration Insulin Human Lispro 0 unit 09/19/23 07:30 09/19/23 11:36 Insulin Lispro 100 Unit/Ml 3 Ml Vial SUBCUT 4 unit QIDACHS [facility] Administration Protocol Loperamide HCl 2 mg 09/18/23 22:51 09/19/23 05:52 Loperamide Hcl 2 Mg Capsule PO 2 mg Q6H PRN Administration Diarrhea Metoprolol Succinate 100 mg 09/19/23 09:00 09/19/23 07:44 Metoprolol Succinate Er 100 Mg Tab.Er.24h PO 100 mg DAILY JAMEEL Administration Protocol Multivitamins/Vitamin C 1 tab 09/19/23 09:00 09/19/23 07:45 Multivitamin Tablet PO 1 tab DAILY JAMEEL Administration Nystatin 1 appl 09/19/23 09:00 09/19/23 08:46 Nystatin Powder 15 Gm Bottle TOPICAL 1 appl TID [facility] Administration Protocol Prednisone 20 mg 09/19/23 09:00 09/19/23 07:44 Prednisone 20 Mg Tablet PO 20 mg DAILY JAMEEL Administration Pregabalin 200 mg 09/18/23 23:00 09/19/23 09:00 Pregabalin 200 Mg Capsule PO 200 mg TID JAMEEL Administration Rifaximin 550 mg 09/19/23 09:00 09/19/23 09:00 Rifaximin 550 Mg Tablet PO 550 mg BID JAMEEL Administration Spironolactone 50 mg 09/19/23 09:00 09/19/23 08:47 Spironolactone 25 Mg Tablet PO 50 mg DAILY JAMEEL Administration Protocol Thiamine HCl 100 mg 09/19/23 09:00 09/19/23 07:44 Thiamine Hcl 100 Mg Tablet PO 100 mg DAILY JAMEEL Administration Discontinued Medications Generic Name Dose Route Start Last Admin Trade Name Freq PRN Reason Stop Dose Admin Sodium Chloride 500 mls @ 500 mls/hr 09/18/23 15:45 09/18/23 17:54 Ns IV 09/18/23 16:44 Infused .Q1H JAMEEL Infusion Insulin Human Lispro 10 unit 09/18/23 13:02 09/18/23 13:08 Insulin Lispro 100 Unit/Ml 3 Ml Vial SUBCUT 09/18/23 13:03 10 unit ONCE ONE Administration Insulin Human Lispro 0 unit 09/18/23 23:00 09/19/23 07:48 Insulin Lispro 100 Unit/Ml 3 Ml Vial SUBCUT Not Given Q6H [facility] Protocol Medical Decision Making Medical Decision Making MDM Narrative: This is a 57-year-old male, with a hx of acute hypoxic respiratory failure, COPD, KD, hepatitis-C,? liver cirrhosis, CHF, hypertension, TIA, CAD s/p stent placements, seizure disorder, insulin-dependent DM, alcohol misuse, and prior episodes of angioedema d/t pineapples, and recent hospital admission for acute hypoxic respiratory failure secondary to pneumococcal pneumonia, COPD with acute decompensation, severe acute hypokalemia, hypomagnesemia, RADHA, alcoholic hepatitis, alcohol dependence with withdrawal, who presents to the ER due to increased global weakness requesting rehabilitation placement. On arrival, vital signs are stable, lungs are diminished throughout. Given long hospital course, will obtain labs, repeat cxr, case management. DDX including deconditioning, electrolyte derangement, ICH, SDH, RADHA, COPD exacerbation, pneumonia Plan: Labs, EKG, CXR, CT head and neck. Differential Diagnosis Differential Diagnoses: The differential diagnosis associated with the presentation includes see above Lab Data MDM Lab Attestation statement: I reviewed the patient's lab results. Patient with chronic macrocytic anemia, with an H&H of 12.4/36.4, hyperglycemia at 391, total bili 3.1, direct bili 2.3, AST 58, alk phos 239, lipase 214. Patient has a history of elevated bilirubin, this appears to be improved since hospitalization. Liver transaminases also elevated however improved since hospitalization. Alk-phos slightly elevated, however this is around his baseline. Albumin low at 2.7. Lipase 214 improved from previous hospitalization. 09/18/23 11:42 09/18/23 11:42 Labs: Lab Results 09/18/23 09/18/23 09/18/23 Range/Units 10:32 11:41 11:42 WBC 7.9 (4.8-10.8) X10*3/uL RBC 3.27 L (4.60-5.80) X10*6/uL Hgb 12.4 L (14.0-18.0) g/dl Hct 36.4 L (42.0-52.0) % MCV 111.3 H (80.0-98.0) fL MCH 37.9 H (27.0-33.0) pg MCHC 34.1 (31.0-36.0) g/dl RDW 17.9 H (11.0-16.0) % Plt Count 86 L D (160-400) X10*3/uL MPV 11.9 (9.4-12.4) fL Immature Gran % (Auto) 0.9 H (0.0-0.4) % Neut % (Auto) 75.6 H (45-73) % Lymph % (Auto) 8.8 L (20-40) % [place] % (Auto) 13.7 H (2-11) % Eos % (Auto) 0.6 (0-4) % Baso % (Auto) 0.4 (0-2) % Lymph # (Auto) 0.7 L (1.2-4.9) X10*3/uL [place] # (Auto) 1.1 (0.1-1.2) X10*3/uL Eos # (Auto) 0.1 (0.0-0.4) X10*3/uL Baso # (Auto) 0.0 (0.0-0.2) X10*3/uL Abs Immat Gran (auto) 0.07 H (0.00-0.03) X10*3/uL Absolute Neuts (auto) 6.0 (2.0-8.3) x10*3/uL Absolute Nucleated RBC 0.000 (0.0-0.012) X10*3/uL Nucleated RBC % (auto) 0.0 (0.0-0.2) /100WBC PT 15.6 H (11.1-13.3) SEC INR 1.3 H (0.9-1.1) APTT 39.4 H (26.0-36.8) SEC Sodium 134 L (135-145) mmol/L Potassium 4.0 (3.3-5.1) mmol/L Chloride 98 (96-108) mmol/L Carbon Dioxide 28 (22-29) mmol/L Anion Gap 12 (12-20) BUN 12 (9-16) mg/dL Creatinine 0.73 (0.5-1.4) mg/dL Estim Creat Clear Calc 147.7 Estimated GFR > 60 POC Glucose 365 H* (60-115) mg/dL Random Glucose 391 H* (60-115) mg/dL Calcium 8.3 L (8.4-10.2) mg/dL Magnesium 1.6 (1.6-2.6) mg/dL Total Bilirubin 3.1 H (0.0-1.0) mg/dL Direct Bilirubin 2.3 H (0.0-0.5) mg/dL AST 58 H (5-37) U/L ALT 25 (0-40) U/L Alkaline Phosphatase 239 H (39-117) U/L Ammonia 34 (13-55) umol/L B-Natriuretic Peptide (<100) pg/mL Total Protein 6.4 L (6.5-8.0) g/dL Albumin 2.7 L (3.5-5.0) g/dL Lipase 214 H (8-78) U/L Ethyl Alcohol < 10 mg/dL Influenza Type A (PCR) NEGATIVE (Negative) Influenza Type B (PCR) NEGATIVE (Negative) RSV RNA Qual (PCR) NEGATIVE (Negative) SARS-CoV-2 RNA (RT-PCR) NEGATIVE (Negative) 09/18/23 09/18/23 09/18/23 Range/Units 14:28 15:37 17:44 WBC (4.8-10.8) X10*3/uL RBC (4.60-5.80) X10*6/uL Hgb (14.0-18.0) g/dl Hct (42.0-52.0) % MCV (80.0-98.0) fL MCH (27.0-33.0) pg MCHC (31.0-36.0) g/dl RDW (11.0-16.0) % Plt Count (160-400) X10*3/uL MPV (9.4-12.4) fL Immature Gran % (Auto) (0.0-0.4) % Neut % (Auto) (45-73) % Lymph % (Auto) (20-40) % [place] % (Auto) (2-11) % Eos % (Auto) (0-4) % Baso % (Auto) (0-2) % Lymph # (Auto) (1.2-4.9) X10*3/uL [place] # (Auto) (0.1-1.2) X10*3/uL Eos # (Auto) (0.0-0.4) X10*3/uL Baso # (Auto) (0.0-0.2) X10*3/uL Abs Immat Gran (auto) (0.00-0.03) X10*3/uL Absolute Neuts (auto) (2.0-8.3) x10*3/uL Absolute Nucleated RBC (0.0-0.012) X10*3/uL Nucleated RBC % (auto) (0.0-0.2) /100WBC PT (11.1-13.3) SEC INR (0.9-1.1) APTT (26.0-36.8) SEC Sodium (135-145) mmol/L Potassium (3.3-5.1) mmol/L Chloride (96-108) mmol/L Carbon Dioxide (22-29) mmol/L Anion Gap (12-20) BUN (9-16) mg/dL Creatinine (0.5-1.4) mg/dL Estim Creat Clear Calc Estimated GFR POC Glucose 383 H* 355 H* (60-115) mg/dL Random Glucose (60-115) mg/dL Calcium (8.4-10.2) mg/dL Magnesium (1.6-2.6) mg/dL Total Bilirubin (0.0-1.0) mg/dL Direct Bilirubin (0.0-0.5) mg/dL AST (5-37) U/L ALT (0-40) U/L Alkaline Phosphatase (39-117) U/L Ammonia (13-55) umol/L B-Natriuretic Peptide 153 H (<100) pg/mL Total Protein (6.5-8.0) g/dL Albumin (3.5-5.0) g/dL Lipase (8-78) U/L Ethyl Alcohol mg/dL Influenza Type A (PCR) (Negative) Influenza Type B (PCR) (Negative) RSV RNA Qual (PCR) (Negative) SARS-CoV-2 RNA (RT-PCR) (Negative) 09/18/23 09/18/23 09/19/23 Range/Units 19:02 21:59 05:57 WBC (4.8-10.8) X10*3/uL RBC (4.60-5.80) X10*6/uL Hgb (14.0-18.0) g/dl Hct (42.0-52.0) % MCV (80.0-98.0) fL MCH (27.0-33.0) pg MCHC (31.0-36.0) g/dl RDW (11.0-16.0) % Plt Count (160-400) X10*3/uL MPV (9.4-12.4) fL Immature Gran % (Auto) (0.0-0.4) % Neut % (Auto) (45-73) % Lymph % (Auto) (20-40) % [place] % (Auto) (2-11) % Eos % (Auto) (0-4) % Baso % (Auto) (0-2) % Lymph # (Auto) (1.2-4.9) X10*3/uL [place] # (Auto) (0.1-1.2) X10*3/uL Eos # (Auto) (0.0-0.4) X10*3/uL Baso # (Auto) (0.0-0.2) X10*3/uL Abs Immat Gran (auto) (0.00-0.03) X10*3/uL Absolute Neuts (auto) (2.0-8.3) x10*3/uL Absolute Nucleated RBC (0.0-0.012) X10*3/uL Nucleated RBC % (auto) (0.0-0.2) /100WBC PT (11.1-13.3) SEC INR (0.9-1.1) APTT (26.0-36.8) SEC Sodium (135-145) mmol/L Potassium (3.3-5.1) mmol/L Chloride (96-108) mmol/L Carbon Dioxide (22-29) mmol/L Anion Gap (12-20) BUN (9-16) mg/dL Creatinine (0.5-1.4) mg/dL Estim Creat Clear Calc Estimated GFR POC Glucose 265 H 361 H* 202 H (60-115) mg/dL Random Glucose (60-115) mg/dL Calcium (8.4-10.2) mg/dL Magnesium (1.6-2.6) mg/dL Total Bilirubin (0.0-1.0) mg/dL Direct Bilirubin (0.0-0.5) mg/dL AST (5-37) U/L ALT (0-40) U/L Alkaline Phosphatase (39-117) U/L Ammonia (13-55) umol/L B-Natriuretic Peptide (<100) pg/mL Total Protein (6.5-8.0) g/dL Albumin (3.5-5.0) g/dL Lipase (8-78) U/L Ethyl Alcohol mg/dL Influenza Type A (PCR) (Negative) Influenza Type B (PCR) (Negative) RSV RNA Qual (PCR) (Negative) SARS-CoV-2 RNA (RT-PCR) (Negative) 09/19/23 09/19/23 Range/Units 07:15 11:19 WBC (4.8-10.8) X10*3/uL RBC (4.60-5.80) X10*6/uL Hgb (14.0-18.0) g/dl Hct (42.0-52.0) % MCV (80.0-98.0) fL MCH (27.0-33.0) pg MCHC (31.0-36.0) g/dl RDW (11.0-16.0) % Plt Count (160-400) X10*3/uL MPV (9.4-12.4) fL Immature Gran % (Auto) (0.0-0.4) % Neut % (Auto) (45-73) % Lymph % (Auto) (20-40) % [place] % (Auto) (2-11) % Eos % (Auto) (0-4) % Baso % (Auto) (0-2) % Lymph # (Auto) (1.2-4.9) X10*3/uL [place] # (Auto) (0.1-1.2) X10*3/uL Eos # (Auto) (0.0-0.4) X10*3/uL Baso # (Auto) (0.0-0.2) X10*3/uL Abs Immat Gran (auto) (0.00-0.03) X10*3/uL Absolute Neuts (auto) (2.0-8.3) x10*3/uL Absolute Nucleated RBC (0.0-0.012) X10*3/uL Nucleated RBC % (auto) (0.0-0.2) /100WBC PT (11.1-13.3) SEC INR (0.9-1.1) APTT (26.0-36.8) SEC Sodium (135-145) mmol/L Potassium (3.3-5.1) mmol/L Chloride (96-108) mmol/L Carbon Dioxide (22-29) mmol/L Anion Gap (12-20) BUN (9-16) mg/dL Creatinine (0.5-1.4) mg/dL Estim Creat Clear Calc Estimated GFR POC Glucose 221 H 231 H (60-115) mg/dL Random Glucose (60-115) mg/dL Calcium (8.4-10.2) mg/dL Magnesium (1.6-2.6) mg/dL Total Bilirubin (0.0-1.0) mg/dL Direct Bilirubin (0.0-0.5) mg/dL AST (5-37) U/L ALT (0-40) U/L Alkaline Phosphatase (39-117) U/L Ammonia (13-55) umol/L B-Natriuretic Peptide (<100) pg/mL Total Protein (6.5-8.0) g/dL Albumin (3.5-5.0) g/dL Lipase (8-78) U/L Ethyl Alcohol mg/dL Influenza Type A (PCR) (Negative) Influenza Type B (PCR) (Negative) RSV RNA Qual (PCR) (Negative) SARS-CoV-2 RNA (RT-PCR) (Negative) Independent Interpretation I performed an independent interpretation of an: EKG Interpretation: Normal sinus rhythm at a ventricular rate of 77 beats per minute, no ST elevation or depression. AR interval 178, QTC 475. Radiology Impression Discussion of test interpretation with radiology: I have reviewed the radiologist's reading. Radiologist Impression: CT/CT head/brain wo IV con IMPRESSION: * No intracranial hemorrhage or other acute intracranial pathology. 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 * No acute fractures within the chronically degenerated cervical spine. * Nonspecific patchy groundglass opacity is partially visualized in the right lung apex. Dictated By: Albert Vincent MD External Record Review External record reviewed: Inpatient record Chronic Conditions Patient?s care impacted by: Diabetes Discharge Plan Discharge Clinical Impression: Weakness Prescriptions: No Action (DME) lancets [BD Ultra-Fine II Lancets] 30 gauge misc See Rx Instructions .Route Qty: 100 0RF Rx Instructions: TID (DME) blood-glucose meter [Accu-Chek Guide Me Glucose Mtr] Misc See Rx Instructions .Route Qty: 1 0RF Rx Instructions: TID testing (DME) pen needle, diabetic [BD Ultra-Fine Mini Pen Needle] 31 gauge x 3/16 needle See Rx Instructions .Route Qty: 100 1RF Rx Instructions: Use to inject insulin once per day folic acid 1 mg tablet 1 mg PO DAILY Qty: 90 1RF atorvastatin 40 mg tablet 40 mg PO DAILY Qty: 90 3RF metoprolol succinate 50 mg tablet extended release 24 hr 100 mg PO DAILY Qty: 180 0RF Rx Instructions: OVERDUE FOR APPT. PLEASE CALL [phone] TO SCHEDULE PPT SO WE CAN CONTINUE REFILLING YOUR MEDICATIONS. insulin glargine [Lantus Solostar U-100 Insulin] 100 unit/mL (3 mL) insulin pen 30 unit subcut DAILY Qty: 30 0RF (DME) Accu-Chek Guide test strips Strip See Rx Instructions .Route Qty: 300 1RF Rx Instructions: tid testing loperamide 2 mg capsule 2 mg PO Q6H PRN (Reason: Diarrhea) Qty: 30 0RF thiamine HCl (vitamin B1) 100 mg tablet 100 mg PO DAILY Qty: 90 0RF multivitamin Tablet 1 tab PO DAILY duloxetine 30 mg capsule,delayed release(DR/EC) 1 cap PO BID aspirin 81 mg Tablet,Delayed Release (Dr/Ec) 81 mg PO DAILY carbamazepine 200 mg tablet 200 mg PO BID pregabalin 200 mg Capsule 200 mg PO TID brimonidine 0.2 % drops 1 drp ophthalmic-Left TID Qty: 5 0RF Rx Instructions: administer approximately 8 hours apart latanoprost 0.005 % drops 1 drp ophthalmic (eye) BEDTIME albuterol sulfate 90 mcg/actuation HFA aerosol inhaler 2 puff inhalation Q6H PRN (Reason: shortness of breath or wheezing) oxycodone 5 mg Tablet 5 mg PO DAILY PRN (Reason: Pain (Scale Score 4-6)) spironolactone 25 mg Tablet 50 mg PO DAILY Qty: 180 0RF Protocol: Hold for SBP< HOLD for SBP < : 90 furosemide 20 mg Tablet 20 mg PO DAILY Qty: 90 0RF Protocol: Hold for SBP< HOLD for SBP < : 90 Xifaxan 550 mg Tablet 550 mg PO BID Qty: 180 0RF lactulose 20 gram/30 mL Solution 20 g PO DAILY PRN (Reason: less than 2 bm per day) 90 Days Qty: 2700 0RF prednisone 20 mg tablet 20 mg PO DAILY Qty: 5 0RF Rx Instructions: x 5 days nystatin 100,000 unit/gram powder 1 appl topical TID Qty: 60 1RF Referrals: [facility] [Outside] Print Language: South Sudanese
--- NOTE | 2023-09-18 11:21 | ECG_ITS ---
Test Reason : DSYPNEA Blood Pressure : / mmHG Vent. Rate : 077 BPM Atrial Rate : 077 BPM P-R Int : 178 ms QRS Dur : 096 ms QT Int : 420 ms P-R-T Axes : 026 042 040 degrees QTc Int : 475 ms Normal sinus rhythm Low voltage QRS Borderline ECG When compared with ECG of 10-SEP-2023 11:11, Nonspecific T wave abnormality has replaced inverted T waves in Anterior leads Referred By: Sherie Mayfield Electronically Signed By:Cameron Acosta
[2023-09-18 11:48] LABS: MANUAL DIFF FLAG NO
[2023-09-18 11:51] LABS: Basophils Percent Auto 0.4 % (0-2); Eosinophils Absolute Auto 0.1 X10*3/uL (0.0-0.4); Eosinophils Percent Auto 0.6 % (0-4); Hematocrit 36.4 % (42.0-52.0); Hemoglobin 12.4 g/dl (14.0-18.0); Imm Gran Abs Auto 0.07 X10*3/uL (0.00-0.03); Imm Gran Pct Auto 0.9 % (0.0-0.4); Lymphocytes Absolute Auto 0.7 X10*3/uL (1.2-4.9); Lymphocytes Percent Auto 8.8 % (20-40); Mean Corpuscular HGB Conc 34.1 g/dl (31.0-36.0); Mean Corpuscular Hemoglobin 37.9 pg (27.0-33.0); Mean Platelet Volume 11.9 fL (9.4-12.4); Monocytes Absolute Auto 1.1 X10*3/uL (0.1-1.2); Monocytes Percent Auto 13.7 % (2-11); Neutrophils Percent Auto 75.6 % (45-73); Red Blood Count 3.27 X10*6/uL (4.60-5.80); Red Cell Distribution Width 17.9 % (11.0-16.0); White Blood Count 7.9 X10*3/uL (4.8-10.8)
[2023-09-18 11:52] LABS: Mean Corpuscular Volume 111.3 fL (80.0-98.0); Platelet Count 86 X10*3/uL (160-400)
[2023-09-18 11:55] LABS: INTERNATIONAL NORM RATIO 1.3 (0.9-1.1); Prothrombin Time 15.6 SEC (11.1-13.3)
[2023-09-18 11:56] LABS: Ammonia 34 umol/L (13-55)
[2023-09-18 11:58] LABS: Partial Thromboplastin Time 39.4 SEC (26.0-36.8)
[2023-09-18 12:06] LABS: Ethanol < 10 mg/dL
[2023-09-18 12:19] LABS: Alanine Aminotransferase 25 U/L (0-40); Albumin Level 2.7 g/dL (3.5-5.0); Alkaline Phosphatase 239 U/L (39-117); Anion Gap 12 (12-20); Aspartate Amino Transferase 58 U/L (5-37); Bilirubin Direct 2.3 mg/dL (0.0-0.5); Bilirubin Total 3.1 mg/dL (0.0-1.0); Blood Urea Nitrogen 12 mg/dL (9-16); Calcium 8.3 mg/dL (8.4-10.2); Carbon Dioxide 28 mmol/L (22-29); Chloride 98 mmol/L (96-108); Creatinine Clr Calc Pharmacy 147.7; Estimated Glomerular Filt Rate > 60; Glucose Random 391 mg/dL (60-115); Lipase 214 U/L (8-78); Magnesium 1.6 mg/dL (1.6-2.6); Sodium 134 mmol/L (135-145); Total Protein 6.4 g/dL (6.5-8.0)
--- NOTE | 2023-09-18 12:29 | PC.NURSE ---
pt alert and oriented. returned to ED after DC yesterday after 1 week hospital stay. Today pt reports weakness and is looking for CM assistance with STR placement. comes in onn4L O2 by EMS, trialed to room air where pt was consistant 90-92%. Per PA, put pt back on 2L oxygen. IV placed 20g left AC. labs drawn.
[2023-09-18 12:49] LABS: Influenza A PCR NEGATIVE (Negative); Influenza B PCR NEGATIVE (Negative); Resp Syncy Virus RNA Qual PCR NEGATIVE (Negative); SARS COV2 PCR INHOUSE NEGATIVE (Negative)
[2023-09-18] MEDS: Insulin Lispro 100 UNIT/ML 3 ML VIAL 10 UNIT SUBCUT (13:08)
--- NOTE | 2023-09-18 13:13 | PC.NURSE ---
pt had episode of liquid diarrhea. PA notified. patient cleaned, barrier cream applied. 10u subq insulin given per orders.
[2023-09-18 14:32] LABS: Glucose, Whole Blood 383 mg/dL (60-115)
[2023-09-18 15:40] LABS: Glucose, Whole Blood 355 mg/dL (60-115)
[2023-09-18] MEDS: 0.9 % Sodium Chloride 500 ML IV (15:43)
--- NOTE | 2023-09-18 17:03 | PC.NURSE ---
per PA, take pt off of oxygen. on room air pt is maintaining 91-92%
[2023-09-18 18:10] LABS: B Type Natriuretic Peptide 153 pg/mL (<100)
[2023-09-18 19:06] LABS: Glucose, Whole Blood 265 mg/dL (60-115)
--- NOTE | 2023-09-18 21:44 | PHA.MEDREC ---
Pharmacy Consult ? Medication Reconciliation Pharmacy has completed the medication reconciliation. Patient just discharge 09/16 from [facility] [place]. Med rec completed by LOUIS Hudson prior to that admission. Med rec complete with discharge summary. Babs Kaminski, MikeD
[2023-09-18 22:03] LABS: Glucose, Whole Blood 361 mg/dL (60-115)
--- NOTE | 2023-09-18 22:20 | MHC.CM.ED ---
Pt was hospitalized at [facility] from 09/09-09/16 for resp failure and pneumonia. At that time PT recommended STR. Pt refused facility because he could not smoke in facility. Pt also only approved local referrals so his could visit. Pt has [employer] and his choices were limited. He was discharged with [facility]. No home oxygen. Pt returned today with dyspnea and weakness. Pt is now agreeable to STR. He is medically cleared. Pt is aware that his choices are limited by his insurance and patient is only agreeable to local facilities. Pt is aware he cannot smoke and he is currently using a patch. Pt also has alcohol use disorder, COPD, CAD, Hep C, liver cirrhosis, CHF hypertension and a seizure disorder. Lives with his . Uses a walker. His PCP is Lauri Gonzalez. HCP is on file. PT assessment completed on 09/14. Will upload it with local referrals that contract with [employer]. CM will follow for discharge planning.
[2023-09-18] MEDS: DULoxetine HCl 30 MG CAPSULE.DR PO (23:37)
[2023-09-18] MEDS: Insulin Lispro 100 UNIT/ML 3 ML VIAL SUBCUT (23:37)
[2023-09-18] MEDS: Loperamide HCl 2 MG CAPSULE PO (23:38)
[2023-09-18] MEDS: Pregabalin 200 MG CAPSULE PO (23:56)
[2023-09-18] MEDS: carBAMazepine 200 MG TABLET PO (23:56)
[2023-09-19] MEDS: Loperamide HCl 2 MG CAPSULE PO (05:52)
[2023-09-19 06:00] LABS: Glucose, Whole Blood 202 mg/dL (60-115)
[2023-09-19 06:14] VITALS: BP 130/77; PULSE 90; RESP 20; TEMP 36.8; O2SAT 97
[2023-09-19 07:19] LABS: Glucose, Whole Blood 221 mg/dL (60-115)
[2023-09-19 07:27] VITALS: BP 130/77; PULSE 90; O2SAT 97
[2023-09-19 07:44] VITALS: BP 130/77; PULSE 90
[2023-09-19] MEDS: Thiamine HCL 100 MG TABLET PO (07:44)
[2023-09-19] MEDS: Metoprolol Succinate ER 100 MG TAB.ER.24H PO (07:44)
[2023-09-19] MEDS: predniSONE 20 MG TABLET PO (07:44)
[2023-09-19] MEDS: Furosemide 20 MG TABLET PO (07:44)
[2023-09-19] MEDS: Atorvastatin Calcium 40 MG TABLET PO (07:44)
[2023-09-19] MEDS: DULoxetine HCl 30 MG CAPSULE.DR PO (07:44)
[2023-09-19] MEDS: Folic Acid 1 MG TABLET PO (07:44)
[2023-09-19] MEDS: Insulin Lispro 100 UNIT/ML 3 ML VIAL SUBCUT ×3 (07:45→16:38)
[2023-09-19] MEDS: Insulin Glargine,Hum.rec.anlog 100 UNIT/ML 10 ML VIAL 30 UNIT SUBCUT (07:45)
[2023-09-19] MEDS: Aspirin Enteric Coated 81 MG TABLET.DR PO (07:45)
[2023-09-19] MEDS: Multivitamin TABLET 1 TAB PO (07:45)
[2023-09-19 08:00] VITALS: BP 117/73; PULSE 86; RESP 18; TEMP 37; O2SAT 90
--- NOTE | 2023-09-19 08:37 | MHC.CM.ED ---
Addendum entered by Mackenzie Vick 09/19/23 15:35: Patient's , Elham, made aware via telephone. Addendum entered by Mackenzie Vick 09/19/23 13:52: Insurance auth has been obtained. Patient can leave at 5pm. Nohelia ESPARZA booked. [facility] with chart. Patient, Shanelle RN and Taras BEAR aware. Addendum entered by Mackenzie Vick 09/19/23 11:10: [facility], [facility] and [facility] are able to offer a bed. Met with patient and Elham. [facility] is 1st choice. Facility made aware and asked to go for auth. Patient will need [facility] PASRR Level 2. T/W already submitted for Level 1. Original Note: Patient remains in ER overflow. Physical therapy eval completed. Short term rehab is recommended. Referral sent to all facilities within 25 miles. Patient will be difficult to place due to [employer] insurance. Continue to monitor for d/c needs.
[2023-09-19] MEDS: carBAMazepine 200 MG TABLET PO (08:46)
[2023-09-19] MEDS: Nystatin Powder 15 GM BOTTLE 1 APPL TOPICAL ×2 (08:46→16:10)
[2023-09-19] MEDS: Brimonidine Tartrate 0.2% Oph 5 ML BOTTLE 1 DROP EYE-LEFT ×2 (08:46→16:10)
[2023-09-19 08:47] VITALS: BP 117/73
[2023-09-19] MEDS: Spironolactone 25 MG TABLET 50 MG PO (08:47)
[2023-09-19] MEDS: Pregabalin 200 MG CAPSULE PO ×2 (09:00→16:10)
[2023-09-19] MEDS: rifAXIMin 550 MG TABLET PO (09:00)
[2023-09-19 11:22] LABS: Glucose, Whole Blood 231 mg/dL (60-115)
[2023-09-19 16:37] LABS: Glucose, Whole Blood 281 mg/dL (60-115)
--- NOTE | 2023-09-19 17:56 | PC.NURSE ---
Pt A/Ox4. Voiding in urinal. at bedside throughout day. D/c to [facility] at ~1800. Report given to PRINCESS Coley
[2023-09-19 18:05] VITALS: BP 117/73; PULSE 86; RESP 16; TEMP 37
== END 2023-09-19 18:06 ==
PROVIDERS: Physician Assistant Medical; Emergency Provider Emergency Medicine; PCP Nurse Practitioner Family
DX: R53.1 Weakness (principal); E11.9 Type 2 diabetes mellitus without complications; I11.0 Hypertensive heart disease with heart failure; I50.30 Unspecified diastolic (congestive) heart failure; J96.01 Acute respiratory failure with hypoxia; F10.20 Alcohol dependence, uncomplicated; B19.20 Unspecified viral hepatitis C without hepatic coma; K76.0 Fatty (change of) liver, not elsewhere classified; J44.9 Chronic obstructive pulmonary disease, unspecified; R29.6 Repeated falls; F17.210 Nicotine dependence, cigarettes, uncomplicated; G47.33 Obstructive sleep apnea (adult) (pediatric); F12.90 Cannabis use, unspecified, uncomplicated; Z86.73 Personal history of transient ischemic attack (TIA), and cerebral infarction without residual deficits; Z79.4 Long term (current) use of insulin; Z79.02 Long term (current) use of antithrombotics/antiplatelets; Z79.899 Other long term (current) drug therapy; Z03.818 Encounter for observation for suspected exposure to other biological agents ruled out
CPT/HCPCS: 0241U; 36415; 70450; 72125; 80048; 80076; 80307; 82140; 82947; 83690; 83735; 83880; 85025; 85610; 85730; 93005; 97162; 99285

== ENCOUNTER → 2023-09-18 11:21 | Outpatient (BNV) | payer MEDICARE, SELFPAY | PROVIDERS: Emergency Provider Emergency Medicine; PCP Nurse Practitioner Family; Visit Provider Internal Medicine Cardiovascular Disease | DX: R06.00 Dyspnea, unspecified (principal) | CPT/HCPCS: 93010 ==

== ENCOUNTER 2023-10-06 09:00 | Outpatient (AMB) | payer MEDICARE, SELFPAY ==
--- NOTE | 2023-10-06 09:18 | AM.OFFWIN_ITS ---
Intake Vital Signs 10/06/23 09:30 BMI Reason not done Patient refused/unable BP 130/78 Blood Pressure Location Rt brachial Position Sitting Pulse 78 Pulse Source Pulse Oximeter Temp 97.9 F Temp Source Temporal Artery Scan Pulse Oximetry (%) 98 Intake Visit Reasons: EP rt knee pain Intake Note: pt is here for right knee pain Patient Tobacco Use Status: Never used Tobacco Allergies pineapple Allergy (Severe, Verified 10/06/23 09:30) Anaphylaxis cyclobenzaprine [From FLEXERIL] Allergy (Unknown, Verified 10/06/23 09:30) RASH penicillin V Allergy (Unknown, Verified 10/06/23 09:30) anaphylaxis ELISEO Inhibitors Adverse Reaction (Severe, Verified 10/06/23 09:30) Angioedema Do you need a note to return to daycare/school/sports/work: No HPI HPI Comments History of Present Illness Details Patient is a 57-year-old male who states he had a traumatic injury to his right leg which required surgery with pins and rods. He states the surgery was done by an orthopedic surgeon at [facility]. He states he was just in rehab at a care home in [place] and was released yesterday. He is here today in a wheelchair but states that he has physical therapy ordered but they have not started as he just got home yesterday. He states his knee is very painful when he tries to straighten it or tries to walk on it, he states it gives out on him. He has had multiple falls while he was in the hospital and in rehab. He is concerned something might be fractured. [facility] Medical History Thrombocytopenia Pneumonia COPD (chronic obstructive pulmonary disease) Diabetes Nicotine dependence, cigarettes, uncomplicated Tracheostomy care Respiratory failure Diastolic CHF Seizure disorder History of TIA (transient ischemic attack) History of hepatitis C CAD (coronary artery disease) HTN (hypertension) Insulin dependent type 2 diabetes mellitus Diabetic neuropathy Restrictive airway disease KD (obstructive sleep apnea) ETOH abuse Morbid obesity Transaminitis Fatty liver History of colon polyps Obesity Microalbuminuria Foot ulcer, left Fracture of right tibia and fibula Metatarsal bone fracture Surgical History History of surgery on lower extremity (~2019) History of lumbar spinal fusion History of colonoscopy (~2018) History of hernia repair History of cardiac catheterization (~2019) Family History Father CVD (cardiovascular disease) Colon cancer Mother No problems noted. Brother Liver cancer Paternal Aunt Colon cancer Social History Household Members: Spouse Household Members Other:: Housing: House Do you presently have visiting nurse or other home services: Yes Unable to assess alcohol history related to: Unable to respond Alcohol intake: former Patient Tobacco Use Status: Never used Tobacco Tobacco use type: Cigarette Years Smoked: onset 18yo, 1-2ppd x 37yrsm now 1/2ppd - 50pyh Second Hand Smoke Exposure: Yes Substance Use Type: Marijuana Advance Directives Date on File: 03/20/22 service: No Current occupational status: disabled Current occupation: right handed Cognitive needs: No Hearing needs: No Vision needs: No Review of Systems Const All systems reviewed & are unremarkable except as noted in HPI and below Physical Exam Vital Signs: Last Vital Signs Temp 97.9 F 10/06/23 09:30 Pulse 78 10/06/23 09:30 BP 130/78 10/06/23 09:30 Pulse Ox 98 10/06/23 09:30 Const General: cooperative, healthy appearing, comfortable and no acute distress Orientation/consciousness: patient oriented x3 Limitations: wheelchair HEENT Head: Yes normal to inspection Resp Effort & Inspection: normal respiratory effort and able to speak in complete sentences Neuro General: patient oriented x3 Extrem Left lower extremity: knee Details: swelling (Slight swelling throughout the knee), normal ROM, knee ligament exam normal, Phani's Test Details: negative medially and laterally, deformity (surgical scar posterior knee) Location: of the knee and other (negative patellar ballottement); no tenderness, no lacerations, no ecchymosis, no crepitus and no unusual warmth Assessment & Plan Assessment & Plan (1) Falls frequently: Comment: (walks with walker) Code(s): R29.6 - Repeated falls Plan: We will get knee x-ray, did recommend patient follow up with his surgeon at an [facility], as well as Eliseo wrapped knee and recommended rest ice ibuprofen (2) Knee injury: Code(s): S89.90XA - Unspecified injury of unspecified lower leg, initial encounter Qualifiers: Encounter type: initial encounter Laterality: right Qualified Code(s): S89.91XA - Unspecified injury of right lower leg, initial encounter Plan: see above (3) Knee pain: Code(s): M25.569 - Pain in unspecified knee Qualifiers: Chronicity: acute Laterality: right Qualified Code(s): M25.561 - Pain in right knee Plan: see above Plan see above Coding Level of Care Code Est Pt Level 4 (29852) Diagnoses Falls frequently R29.6 Injury of right knee, initial encounter S89.91XA Encounter type: initial encounter Laterality: right Acute pain of right knee M25.561 Chronicity: acute Laterality: right
[2023-10-06 09:30] VITALS: BP 130/78; PULSE 78; TEMP 36.6; O2SAT 98
== END 2023-10-06 10:25 | disposition home or self-care (01) ==
PROVIDERS: PCP Nurse Practitioner Family; Visit Provider Physician Assistant
DX: R29.6 Repeated falls (principal); S89.91XA Unspecified injury of right lower leg, initial encounter; M25.561 Pain in right knee
CPT/HCPCS: 99214

== ENCOUNTER 2023-10-06 10:00 | Outpatient (REF) | payer MEDICARE, SELFPAY ==
--- NOTE | ~2023-10-06 | XR_ITS ---
EXAMINATION: XR KNEE, RIGHT CLINICAL INFORMATION: Lower leg injury COMPARISON: Right knee 01/03/2015 TECHNIQUE: Four views of the right knee. FINDINGS: There is an intramedullary darren and screw in the tibia. There are some small unchanged osteophytes involving the posterior patella compared to 2015. No significant joint space narrowing is seen. No chondrocalcinosis, acute fractures or joint effusion. XR/XR knee RT 4V IMPRESSION: No acute finding.
== END 2023-10-06 10:01 | disposition home or self-care (01) ==
LOC: HO.HMGCX 10:00
PROVIDERS: Visit Provider Physician Assistant
DX: S89.91XA Unspecified injury of right lower leg, initial encounter (principal)
CPT/HCPCS: 73564

== ENCOUNTER → 2023-11-26 14:19 | Outpatient (RCR) | payer MEDICARE, SELFPAY ==
[2020-04-19 08:32] VITALS: BP 151/85; PULSE 95; RESP 20; TEMP 36.1; O2SAT 96; BMI 37.5
--- NOTE | 2020-04-19 09:01 | PM.HEMONCCN ---
Subjective - Subjective Chief complaint: Low platelets Patient: new to practice Consult date: 04/19/20 Primary Care Provider: MANDI Gómez HPI - Consult Narrative Reason for consult: Thrombocytopenia Narrative: Tom Weber is a 54 year old male referred for evaluation of chronic thrombocytopenia. Platelet counts have been declining since May 2018, in December 2017 it was 218 K, in May 2018 it was 154 1000. In February 2020 128k and today 115k. No anemia or leukopenia. Normal vitamin B12 and folic acid Levels. He has a history of hepatitis-C which he acquired with tattoos. He was treated he says more than 15 or 20 years ago and he was told of normal liver ever since. He has had a few colonoscopies because of family history of colorectal cancer. He does drink alcohol several times a week but says only 1 or 2 beers at a time. He is trying to quit smoking. He was recently treated for pneumonia with doxycycline. He denies any fever, chills, loss of appetite or weight loss. He has a mesh in his abdomen for week muscle. He denies any change in bowel habits. No chest pain or shortness of breath. He was tested for COVID-19 and found to be negative a few times. He denies any new medications. He has longstanding diabetes and diabetic neuropathy. Review of Systems - Constitutional Reports as per HPI, Reports no additional constitutional complaints - Cardiovascular Reports no additional cardiovascular complaints - Respiratory Reports no additional respiratory complaints - Gastrointestinal Reports no additional gastrointestinal complaints [facility] Medical History: Medical History (Last Updated 04/19/20 @ 10:43 by Jaimie Coreas MD) Asthma Bronchitis CAD (coronary artery disease) History of hepatitis C HTN (hypertension) Shortness of breath Uncontrolled diabetes mellitus Family History: Family History (Last Updated 04/19/20 @ 08:36 by Vicki Rinaldi RN) Father CVD (cardiovascular disease) Cancer Mother No problems noted. Brother Liver cancer Sister Colon cancer Paternal Aunt Colon cancer Surgical History: Surgical History (Last Reviewed 03/18/20 @ 14:59 by Pasquale Bethea NP) History of back surgery Hx of cardiac cath Hx of hernia repair Smoking status: Light tobacco smoker Alcohol intake: current Alcohol intake frequency: 0-2 drinks per day Home Medications and Allergies Home Medications Medication Instructions Recorded Confirmed Type atorvastatin 40 mg tablet 40 mg PO DAILY 02/17/20 02/17/20 History carbamazepine 200 mg tablet 200 mg PO BID 02/17/20 02/17/20 History oxycodone 5 mg tablet mg PO BEDTIME 02/17/20 02/17/20 History pregabalin 300 mg capsule 300 mg PO BID 02/17/20 02/17/20 History tizanidine 4 mg tablet 4 mg PO TID PRN 03/06/20 History Allergies Allergy/AdvReac Type Severity Reaction Status Date / Time cyclobenzaprine Allergy Unknown RASH Verified 04/19/20 08:37 [From FLEXERIL] penicillin V Allergy Unknown anaphylaxis Verified 04/19/20 08:37 Physical Exam Vital signs: Vital Signs Temp 97.0 F 04/19/20 08:32 Pulse 95 04/19/20 08:32 Resp 20 04/19/20 08:32 BP 151/85 H 04/19/20 08:32 Pulse Ox 96 04/19/20 08:32 Intake & Output 04/18/20 04/19/20 04/19/20 18:59 06:59 18:59 Other: Weight 128.9 kg Weight 128.9 kg - Constitutional Present: no acute distress - Routine HEENT Exam Head: Present: normal inspection Eye: Present: EOMI - Routine Neck Exam Present: supple. Absent: JVD, lymphadenopathy - Routine Chest/Breast/Axilla Exam Axillae: Absent: lymphadenopathy - Routine Respiratory Exam Present: CTAB - Routine Cardiovascular Exam Cardiovascular: Present: RRR, S1, S2 - Routine Abdominal Exam Present: distended, soft - Routine Skin Exam Present: intact. Absent: cyanosis Hem/Onc Consult Result - Labs CBC & Chem 7: 04/19/20 09:17 04/19/20 09:17 Assessment and Plan (1) Thrombocytopenia Status: Chronic 1. This is a 54-year-old male with chronic thrombocytopenia, it is gradually worsening. He has a history of hepatitis-C in the past which he says was treated. He has not had recent imaging of his liver/abdomen. I have ordered an ultrasound of the liver/spleen. Hepatitis serologies have been ordered. He has normal vitamin B12 and folic acid levels. Hematological workup for underlying bone marrow disorder such as lymphoma, plasma cell dyscrasia and myelodysplastic syndrome is being submitted. Unlikely for this to be related to acute infectious or medication related causes. He was also advised about cutting back alcohol as this can cause thrombocytopenia from bone marrow suppression as well as liver disease. Further recommendations to follow. I thank you very much for this consultation. Follow-up in 1 month.
[2020-04-19 09:18] LABS: MANUAL DIFF FLAG NO
--- NOTE | 2020-04-19 09:24 | MHC.HEMONC ---
Patient here for consult accompanied by daughter. Labs drawn. Clinical summary updated with nurse. Provider seen patient. Follow-up booked.
[2020-04-19 09:31] LABS: Basophils Percent Auto 0.7 % (0-2); Eosinophils Absolute Auto 0.1 X10*3/uL (0.0-0.4); Eosinophils Percent Auto 1.7 % (0-4); Hematocrit 45.5 % (42-52); Hemoglobin 15.5 g/dl (14.0-18.0); Imm Gran Abs Auto 0.01 X10*3/uL (0.00-0.03); Imm Gran Pct Auto 0.2 % (0.0-0.4); Lymphocytes Absolute Auto 1.4 X10*3/uL (1.2-4.9); Lymphocytes Percent Auto 23.5 % (20-40); Mean Corpuscular HGB Conc 34.1 g/dl (31.0-36.0); Mean Corpuscular Hemoglobin 35.3 pg (27.0-33.0); Mean Corpuscular Volume 103.6 fL (80-98); Monocytes Absolute Auto 0.5 X10*3/uL (0.1-1.2); Neutrophils Absolute Auto 3.8 X10*3/uL (2.0-8.3); Neutrophils Percent Auto 64.9 % (45-73); Platelet Count 115 X10*3/uL (160-400); Red Blood Count 4.39 X10*6/uL (4.60-5.80); Red Cell Distribution Width 13.6 % (11.0-16.0); White Blood Count 5.9 X10*3/uL (4.8-10.8)
--- NOTE | 2020-04-19 09:46 | MHC.HEMONCSW ---
US ABDOMEN PLACED IN O.F. FOR PATIENT.
[2020-04-19 09:56] LABS: Alanine Aminotransferase 33 U/L (0-40); Albumin Level 3.6 g/dL (3.5-5.0); Alkaline Phosphatase 111 U/L (39-117); Anion Gap 13 (12-20); Aspartate Amino Transferase 40 U/L (5-37); Bilirubin Total 1.5 mg/dL (0.0-1.0); Blood Urea Nitrogen 12 mg/dL (9-16); Calcium 8.4 mg/dL (8.4-10.2); Carbon Dioxide 33 mmol/L (22-29); Chloride 95 mmol/L (96-108); Creatinine Clr Calc Pharmacy 138.1; Estimated Glomerular Filt Rate > 60; Glucose Random 273 mg/dL (60-115); Potassium 3.8 mmol/l (3.3-5.1); Sodium 137 mmol/L (135-145); Total Protein 6.4 g/dL (6.5-8.0)
[2020-04-19 10:15] LABS: HBc Num1 3.46 S/CO (0.00-0.79); Hepatitis A Antibody IgM 0.18 Index (0-0.79); Hepatitis B Surface Antigen Negative (Negative); ~HepC Num1 7.96 S/CO (0.00-0.79); ~Hepatitis A Antibody IgM Nonreactive (Nonreactive); ~Hepatitis B Surface Antibody NONREACTIVE (Nonreactive); ~Hepatitis C Antibody Reactive (Nonreactive)
[2020-04-19 10:27] LABS: Folate 11.1 ng/mL (> or = 4.0); Vitamin B12 410 pg/mL (200-900)
[2020-04-19 12:38] LABS: HBc Num2 3.43 S/CO; HBc Num3 3.41 S/CO; Hepatitis B Core Antibody Reactive (Nonreactive)
[2020-04-20 09:27] LABS: Hepatitis B Core Antibody IgM NON-REACTIVE (NON-REACTIVE)
[2020-04-20 13:47] LABS: Anti Nuclear Antibody Screen NEGATIVE (NEGATIVE)
[2020-04-20 15:22] LABS: Prot Elec - Albumin 3.4 g/dL (3.8-4.8); Prot Elec - Alpha1 0.4 g/dL (0.2-0.3); Prot Elec - Alpha2 0.8 g/dL (0.5-0.9); Prot Elec - Beta 1 0.3 g/dL (0.4-0.6); Prot Elec - Beta 2 0.4 g/dL (0.2-0.5); Prot Elec - Gamma 0.7 g/dL (0.8-1.7)
[2020-04-20 15:48] LABS: IgA 400 mg/dL (47-310); IgG 789 mg/dL (600-1640); IgM 40 mg/dL (50-300)
[2020-04-23 02:18] LABS: Methylmalonic Acid 204 nmol/L (87-318)
--- NOTE | 2020-04-28 10:52 | MHC.HEMONCMA ---
I had Dr Coreas look over the patient's lab, she states everything is looking good for now. Patient is supposed to have an ultrasound of his abdomen. I spoke with the patient's and i let her know that the labs look good so far, and that someone will be calling him for the date and time for his ultrasound.
--- NOTE | 2020-04-28 11:08 | MHC.HEMONCMA ---
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
== END | disposition home or self-care (01) ==
LOC: HO.ONC 04-19 08:22
PROVIDERS: PCP Nurse Practitioner Family; Referring Provider Nurse Practitioner Family; Visit Provider Internal Medicine
DX: D69.6 Thrombocytopenia, unspecified (principal); Z86.19 Personal history of other infectious and parasitic diseases
CPT/HCPCS: 36415; 80053; 82607; 82746; 82784; 83921; 84155; 84165; 85025; 86038; 86039; 86334; 86704; 86705; 86706; 86709; 86803; 87340; 99204

== ENCOUNTER 2024-01-01 01:05 | Inpatient (IN) | payer MEDICARE, SELFPAY ==
[2024-01-01] VITALS (10 sets, daily range): BP systolic 93–141; BP diastolic 58–87; PULSE 81–104; RESP 12–18; TEMP 35.9–36.9; O2SAT 87–96; BMI 34.8
--- NOTE | 2024-01-01 | ECG_ITS ---
Test Reason : WEAKNESS Blood Pressure : / mmHG Vent. Rate : 097 BPM Atrial Rate : 097 BPM P-R Int : 186 ms QRS Dur : 100 ms QT Int : 354 ms P-R-T Axes : 035 064 027 degrees QTc Int : 449 ms Normal sinus rhythm Low voltage QRS Borderline ECG When compared with ECG of 18-SEP-2023 11:26, No significant change was found Referred By: Kathy Canela Electronically Signed By:MARTÍN MARTINEZ
--- NOTE | ~2024-01-01 | US_ITS ---
EXAMINATION: US TRIPLEX LOWER EXTREMITY, BILATERAL CLINICAL INFORMATION: Pain and swelling COMPARISON: Ultrasound duplex bilateral lower extremity venous study 08/26/2018 TECHNIQUE: Color-flow triplex imaging with spectral analysis and compression Doppler were performed on the bilateral lower extremities. FINDINGS: Respiratory variation, normal compression and augmented flow are noted throughout the bilateral lower extremities. The visualized common femoral vein, superficial femoral vein, profunda femoral vein, popliteal vein and posterior tibial venous segments show no evidence of deep venous thrombosis bilaterally. Bilateral peroneal veins are not seen. There is moderate calf edema. There is no Stevens's cyst. US/US venous duplex LE BI IMPRESSION: No evidence of deep venous thrombosis involving the bilateral lower extremities. Bilateral mild to moderate calf edema. Electronically signed by: Flavio Hardy MD 01/01/2024 07:01 PM EDT
--- NOTE | ~2024-01-01 | US_ITS ---
EXAMINATION: US ABDOMEN LIMITED CLINICAL INFORMATION: Ascites check. COMPARISON: CT scan dated September 10, 2023. TECHNIQUE: Limited four-quadrant real-time examination of the abdomen was performed. FINDINGS: Examination demonstrates a small to moderate amount of ascites in the right upper and lower quadrants, greater in the right lower quadrant. No significant ascites is seen on the left. Mild splenomegaly measuring 14.7 cm. Images were reportedly reviewed by the technologist with Dr. Hammer. US/US abdomen limited IMPRESSION: Findings as above. Electronically signed by: Olvin Chau MD 01/02/2024 11:30 AM EDT
--- NOTE | ~2024-01-01 | XR_ITS ---
EXAMINATION: XR CHEST CLINICAL INFORMATION: Dyspnea COMPARISON: Chest radiograph 09/17/2023 TECHNIQUE: Frontal view of the chest was obtained. FINDINGS: Images are suboptimally oriented. Multiple external artifacts overlie the thorax. Making allowances for the findings above, the cardiac silhouette is grossly normal in size. No effusions or pneumothoraces identified. Elevation of the right hemidiaphragm is again visualized. Normal pulmonary vasculature. No focal consolidation. XR/XR chest 1V IMPRESSION: *No acute cardiopulmonary abnormalities noted. *Chronic elevation of the right hemidiaphragm which may be secondary to diaphragmatic paresis. Electronically signed by: Ti Hooper MD 01/01/2024 02:59 AM EDT
--- OUTSIDE RECORDS SUMMARY | 2024-01-01 01:23 | XMS_ITS | Patient Health Record ---
Author Organization [facility] Address [address] [place] [address] Care Team Providers Care School Adjustment Counselor Name Role Phone RAVINDER SUNSHINE Primary Care Provider Pilo Frazier [phone] RESULTS Component Value Reference Range Notes Basic Metabolic Panel Reviewed date:07/10/2023 10:13:42 AM Interpretation: Performing Lab:[facility], [address] [place] [phone] Notes/Report: Sodium 138 135-145 mmol/L Potassium 3.0 3.3-5.1 mmol/L Chloride 101 96-108 mmol/L Carbon Dioxide 25 22-29 mmol/L Anion Gap 15 12-20 Blood Urea Nitrogen 10 9-16 mg/dL Creatinine 0.79 0.5-1.4 mg/dL Creatinine Clr Calc Pharmacy 135.7 eGFR (calculated from the MDRD study equation) and eCrCl (calculated from the Cockcroft-Gault equation) are based on different parameters and may not yield comparable results. If eCrCl result is absurd, please check patient's height/weight. Estimated Glomerular Filt Rate > 60 NOTE: For -[place]anaian individuals, multiply the result by 1.210. Chronic Kidney Disease: Estimated GFR < 60 mL/min/1.73m2 Severe Kidney Disease: Estimated GFR < 15 mL/min/1.73m2 Glucose Random 141 60-115 mg/dL Calcium 8.0 8.4-10.2 mg/dL Magnesium Reviewed date:07/10/2023 10:14:01 AM Interpretation: Performing Lab:[facility], [address] [place] [phone] Notes/Report: Magnesium 1.4 1.6-2.6 mg/dL Critical mag sent by a secure message and confirmed by melissa delatorre [id number] 07/10/23 Tech:franki Lipase Reviewed date:07/10/2023 10:13:48 AM Interpretation: Performing Lab:[facility], [address] [place] [phone] Notes/Report: Lipase 269 8-78 U/L Basic Metabolic Panel Reviewed date:07/10/2023 10:13:54 AM Interpretation: Performing Lab:[facility], [address] [place] [phone] Notes/Report: Sodium 138 135-145 mmol/L Potassium 3.0 3.3-5.1 mmol/L Chloride 101 96-108 mmol/L Carbon Dioxide 25 22-29 mmol/L Anion Gap 15 12-20 Blood Urea Nitrogen 10 9-16 mg/dL Creatinine 0.79 0.5-1.4 mg/dL Creatinine Clr Calc Pharmacy 135.7 eGFR (calculated from the MDRD study equation) and eCrCl (calculated from the Cockcroft-Gault equation) are based on different parameters and may not yield comparable results. If eCrCl result is absurd, please check patient's height/weight. Estimated Glomerular Filt Rate > 60 NOTE: For -[place]anaian individuals, multiply the result by 1.210. Chronic Kidney Disease: Estimated GFR < 60 mL/min/1.73m2 Severe Kidney Disease: Estimated GFR < 15 mL/min/1.73m2 Glucose Random 141 60-115 mg/dL Calcium 8.0 8.4-10.2 mg/dL Lipase Reviewed date:07/10/2023 10:14:07 AM Interpretation: Performing Lab:[facility], [address] [place] [phone] Notes/Report: Lipase 269 8-78 U/L REASON FOR REFERRAL No Information SOCIAL HISTORY Sex Assigned At : Social History Observation Description Sex Assigned At Unknown PLAN OF TREATMENT No Information Insurance Providers Payer Name Payer Address Payer Phone Subscriber Number Group Number Insured Name Patient Relationship to Insured Coverage Start Date Coverage End Date [employer] [address] [address] [place] [address] [id number] DANIEL COVARRUBIAS JR Self - patient is the insured
--- NOTE | 2024-01-01 01:33 | ED.WEAKNESS ---
HPI - Weakness General Chief complaint: Weakness Stated complaint: weakness and ABD pain Time Seen by Provider: 01/01/24 01:16 Source: patient, EMS and old records reviewed Mode of arrival: EMS Limitations: no limitations History of Present Illness ED Provider: COLE HPI Narrative: 58 yo male with PMH of acute hypoxic respiratory failure, COPD, KD, hep C, cirrhosis last ETOH drink 10pm, CHF with , HTN, CAD s/p stent, seizures, IDDM, here with c/o just not feeling well for a while. He states he cannot feel his fingers and wen them with his cigarettes. He cannot walk but his daughter lives next to him. He denies falls. He states he has not had fevers. He notes his abdomen has gotten bigger. His bowel movements are not black or bloody but they are mushy. He states he has no pain in the abdomen it is just getting bigger. MD Complaint: generalized weakness Onset (ago): day(s) (several) Duration: progressively worsening Location: generalized Migration: none Severity: severe Quality: tingling and aching Relieving factors: rest Exacerbating factors: movement and exertion Context: other Associated symptoms: loss of appetite Related Data Home Medications ?Medication ?Instructions ?Recorded ?Confirmed aspirin 81 mg tablet,delayed 81 mg PO DAILY 03/17/22 09/18/23 release duloxetine 30 mg capsule,delayed 1 cap PO BID 03/17/22 09/18/23 release multivitamin 1 tab PO DAILY 03/17/22 09/18/23 carbamazepine 200 mg tablet 200 mg PO BID 12/04/22 09/18/23 pregabalin 200 mg capsule 200 mg PO TID 12/04/22 09/18/23 albuterol sulfate 90 mcg/actuation 2 puff inhalation Q6H PRN 06/07/23 09/18/23 aerosol inhaler shortness of breath or wheezing latanoprost 0.005 % eye drops 1 drp ophthalmic (eye) BEDTIME 06/07/23 09/18/23 oxycodone 5 mg tablet 5 mg PO DAILY PRN Pain (Scale 09/10/23 09/18/23 Score 4-6) Previous Rx's ?Medication ?Instructions ?Recorded Accu-Chek Guide Me Glucose Mtr #1 ea 06/11/22 (blood-glucose meter) lancets 30 gauge (BD Ultra-Fine II #100 ea 06/11/22 Lancets) folic acid 1 mg tablet 1 mg PO DAILY #90 tabs 03/15/23 atorvastatin 40 mg tablet 40 mg PO DAILY #90 tabs 03/27/23 brimonidine 0.2 % eye drops 1 drp ophthalmic-Left TID #5 mL 05/26/23 metoprolol succinate 50 mg 100 mg (2 x 50 mg) PO DAILY #180 06/10/23 tablet,extended release 24 hr tabs Accu-Chek Guide test strips (blood #300 ea 07/20/23 sugar diagnostic) loperamide 2 mg capsule 2 mg PO Q6H PRN Diarrhea #30 caps 07/26/23 thiamine HCl (vitamin B1) 100 mg 100 mg PO DAILY #90 tabs 07/26/23 tablet nystatin 100,000 unit/gram topical 1 appl topical TID #60 grams 08/08/23 powder furosemide 20 mg tablet 20 mg PO DAILY #90 tabs 09/17/23 lactulose 20 gram/30 mL oral 20 g (30 mL) PO DAILY PRN less 09/17/23 solution than 2 bm per day 90 days #2,700 mL rifaximin 550 mg tablet (Xifaxan) 550 mg PO BID #180 tabs 09/17/23 spironolactone 25 mg tablet 50 mg PO DAILY #180 tabs 09/17/23 insulin glargine 100 unit/mL (3 30 unit (0.3 mL) subcut DAILY #30 12/19/23 mL) subcutaneous pen (Lantus mL Solostar U-100 Insulin) pen needle, diabetic 31 gauge x #100 ea 12/23/2306/13 (BD Ultra-Fine Mini Pen Needle) Allergies Allergy/AdvReac Type Severity Reaction Status Date / Time pineapple Allergy Severe Anaphylaxis Verified 01/01/24 01:15 cyclobenzaprine Allergy Unknown RASH Verified 01/01/24 01:15 [From FLEXERIL] penicillin V Allergy Unknown anaphylaxis Verified 01/01/24 01:15 FADIA Inhibitors AdvReac Severe Angioedema Verified 01/01/24 01:15 Review of Systems Review of Systems: Constitutional : No Fever, No Chills, posFatigue ENT/Mouth : No sore throat, No Rhinorrhea Eyes: No Eye Pain, No Swelling, No Redness Cardiovascular : No Chest Pain, No SOB, No Dyspnea on Exertion, pos leg edema Respiratory : No Cough, No Sputum Gastrointestinal : No Nausea, No Vomiting, pos Diarrhea, No abdominal Pain Genitourinary : No Dysuria, No Urinary Frequency, No Hematuria, Musculoskeletal : No joint pain, No Myalgias, No Joint Swelling Skin : No Skin Lesions, No rash Neuro : pos Weakness, pos Numbness, No Dizziness, no Headache Psych : pos Anxiety/Panic, No Depression All other systems reviewed and are negative FOR[facility], [facility] Past Medical History Attestation statement: The following information was validated with the patient. Medical History Thrombocytopenia Pneumonia COPD (chronic obstructive pulmonary disease) Diabetes Nicotine dependence, cigarettes, uncomplicated Tracheostomy care Respiratory failure Diastolic CHF Seizure disorder History of TIA (transient ischemic attack) History of hepatitis C CAD (coronary artery disease) HTN (hypertension) Insulin dependent type 2 diabetes mellitus Diabetic neuropathy Restrictive airway disease KD (obstructive sleep apnea) ETOH abuse Morbid obesity Transaminitis Fatty liver History of colon polyps Obesity Microalbuminuria Foot ulcer, left Fracture of right tibia and fibula Metatarsal bone fracture Surgical History History of surgery on lower extremity (~2019) History of lumbar spinal fusion History of colonoscopy (~2019) History of hernia repair History of cardiac catheterization (~2019) Family History Family History Father CVD (cardiovascular disease) Colon cancer Mother No problems noted. Brother Liver cancer Paternal Aunt Colon cancer Social History Social History Household Members: Spouse Household Members Other:: Housing: House Do you presently have visiting nurse or other home services: Yes Unable to assess alcohol history related to: Unable to respond Alcohol intake: former Patient Tobacco Use Status: Never used Tobacco Tobacco use type: Cigarette Years Smoked: onset 18yo, 1-2ppd x 37yrsm now 1/2ppd - 50pyh Smoked in Last 30 Days: Yes Second Hand Smoke Exposure: Yes Use of substances other than those prescribed or required for medical reasons: No Substance Use Type: Marijuana Advance Directives: Yes Advance Directives on File: Yes Advance Directives Date on File: 03/20/22 Do you have a plan to hurt others: No Plan service: No Current occupational status: disabled Current occupation: right handed Cognitive needs: No Hearing needs: No Vision needs: No Physical Exam Vital Signs: Vital Signs: Last Vital Signs Temp 98.5 F 01/01/24 02:00 Pulse 96 01/01/24 02:54 Resp 12 01/01/24 02:54 BP 103/64 01/01/24 02:54 Pulse Ox 95 01/01/24 02:54 O2 Del Method Nasal Cannula 01/01/24 02:54 O2 Flow Rate 2 01/01/24 02:54 Oxygen Flow Rate 3 01/01/24 01:14 BMI result Body Mass Index 34.8 Appearance: Alert. Oriented X3. mild acute distress. Eyes: Pupils equal, round and reactive to light. scleral icterua ENT: Pharynx very dry MM Neck: Normal inspection. Neck supple. CVS: tachycardic heart rate and rhythm. Pulses normal. Respiratory: No respiratory distress. Breath sounds bases diminished Abdomen: ascites noted but no ttp no hypoxia laying flat Skin: Skin warm and dry. pale skin color. fingers on each hand have cigarette mike and burn garcia on them no signs of infection Extremities: 2+ pitting lower extremity edema. No calf ttp Neuro: Oriented X 3. No motor deficit. No sensory deficit. Course Course Course Narrative: lactic acid improved, BP improved started on very low dose phenobarb given ETOH abuse hx of seizures Medications Administered Discontinued Medications Generic Name Dose Route Start Last Admin Trade Name Freq PRN Reason Stop Dose Admin Magnesium Sulfate 2 gm in 50 mls @ 25 mls/hr 01/01/24 01:21 01/01/24 03:16 Magnesium Sulfate/H2o IV 01/01/24 03:20 25 mls/hr ONCE ONE Administration Thiamine HCl 200 mg/ Sodium 102 mls @ 204 mls/hr 01/01/24 01:21 01/01/24 02:49 Chloride IV 01/01/24 01:50 Infused ONCE ONE Infusion Albumin Human 100 mls @ 133.333 mls/hr 01/01/24 01:30 01/01/24 03:28 Kedbumin 25 % IV 01/01/24 03:14 Infused Q1H JAMEEL Infusion Cefepime HCl 2 gm/ Sodium 50 mls @ 100 mls/hr 01/01/24 01:23 01/01/24 02:49 Chloride IV 01/01/24 01:52 Infused ONCE ONE Infusion Sodium Chloride 500 mls @ 500 mls/hr 01/01/24 02:03 01/01/24 03:19 Ns IV 01/01/24 03:02 Infused .Q1H ONE Infusion Methylprednisolone Sodium Succinate 60 mg 01/01/24 03:25 01/01/24 03:37 Methylprednisolone Sod Succ 125 Mg/2 Ml Vial IVPUSH 01/01/24 03:26 60 mg ONCE ONE Administration Potassium Chloride 40 meq 01/01/24 02:14 01/01/24 02:26 Potassium Chloride Packet 20 Meq Packet PO 01/01/24 02:15 40 meq ONCE ONE Administration Medical Decision Making Medical Decision Making MDM Narrative: 58 yo male with PMH of acute hypoxic respiratory failure, COPD, KD, hep C, cirrhosis last ETOH drink 10pm, CHF with , HTN, CAD s/p stent, seizures, IDDM, here with c/o weakness, fatigue, tingling, ascites, leg edema at this time will need basic labs, cultures, lactic acid, albumin, denies falling and has no signs of head trauma. He just drank ETOH as well at 10pm. At this time he has ascites and distal edema suspect cirrhosis but BPs are slightly soft - albumin ordered. He has no pain to palpation of abdomen doubt SBP but I did order cefepime given his history of weakness and prior pneumonia he also has a coarse cough. He has tingling of extremities suspect lyte disturbance - IV magnesium ordered. Planned admit Differential Diagnosis Differential Diagnoses: The differential diagnosis associated with the presentation includes cirrhosis, lyte abnormality, FTT, alcohol use disorder, URI Admission/Observation Consideration of admission/observation: Escalation of care including admission/observation considered admit for further workup including paracentesis and he has no O2 requiremetns Consult Healthcare Provider Management of the patient was discussed with: Hospitalist (will admit) Lab Data MDM Lab Attestation statement: I reviewed the patient's lab results. 01/01/24 01:39 01/01/24 01:39 Labs: Lab Results 01/01/24 01/01/24 01/01/24 Range/Units 01:39 01:43 01:51 WBC 6.5 (4.8-10.8) X10*3/uL RBC 3.14 L (4.60-5.80) X10*6/uL Hgb 11.5 L (14.0-18.0) g/dl Hct 34.2 L (42.0-52.0) % MCV 108.9 H (80.0-98.0) fL MCH 36.6 H (27.0-33.0) pg MCHC 33.6 (31.0-36.0) g/dl RDW 17.8 H (11.0-16.0) % Plt Count 82 L (160-400) X10*3/uL MPV 10.7 (9.4-12.4) fL Immature Gran % (Auto) 0.6 H (0.0-0.4) % Neut % (Auto) 68.6 (45-73) % Lymph % (Auto) 14.4 L (20-40) % Harper % (Auto) 14.5 H (2-11) % Eos % (Auto) 0.8 (0-4) % Baso % (Auto) 1.1 (0-2) % Lymph # (Auto) 0.9 L (1.2-4.9) X10*3/uL Harper # (Auto) 1.0 (0.1-1.2) X10*3/uL Eos # (Auto) 0.1 (0.0-0.4) X10*3/uL Baso # (Auto) 0.1 (0.0-0.2) X10*3/uL Abs Immat Gran (auto) 0.04 H (0.00-0.03) X10*3/uL Absolute Neuts (auto) 4.5 (2.0-8.3) x10*3/uL Absolute Nucleated RBC 0.000 (0.0-0.012) X10*3/uL Nucleated RBC % (auto) 0.0 (0.0-0.2) /100WBC PT 13.1 H (10.9-12.4) SEC INR 1.1 (0.9-1.1) APTT 34.2 (26.0-36.8) SEC VBG pH 7.42 (7.32-7.43) VBG pCO2 46 mmHg VBG pO2 56 mmHg VBG HCO3 30 H (22-26) mmol/L VBG O2 Saturation 79.0 % VBG Base Excess 5.5 mmol/L Sodium 136 (135-145) mmol/L Potassium 3.3 (3.3-5.1) mmol/L Chloride 95 L (96-108) mmol/L Carbon Dioxide 26 (22-29) mmol/L Anion Gap 18 (12-20) BUN 15 (9-16) mg/dL Creatinine 0.98 (0.5-1.4) mg/dL Estim Creat Clear Calc 108.6 Estimated GFR > 60 Random Glucose 145 H (60-115) mg/dL Lactic Acid 2.9 H* (0.5-2.0) mmol/L Lactic Acid F/U @ 2Hr (0.5-2.0) mmol/L Calcium 8.1 L (8.4-10.2) mg/dL Magnesium 1.5 L (1.6-2.6) mg/dL Total Bilirubin 1.7 H (0.0-1.0) mg/dL Direct Bilirubin 1.1 H (0.0-0.5) mg/dL AST 76 H (5-37) U/L ALT 28 (0-40) U/L Alkaline Phosphatase 264 H (39-117) U/L Ammonia 56 H (13-55) umol/L Total Creatine Kinase 93 (38-174) U/L Troponin I High Sens 6.6 D (<3.5-35.0) ng/L C-Reactive Protein 3.42 H (< or = 0.50) mg/dL B-Natriuretic Peptide 30 (<100) pg/mL Total Protein 6.2 L (6.5-8.0) g/dL Albumin 2.4 L (3.5-5.0) g/dL Lipase 33 (8-78) U/L Procalcitonin 0.17 ng/mL Ethyl Alcohol 15 mg/dL Influenza Type A (PCR) NEGATIVE (Negative) Influenza Type B (PCR) NEGATIVE (Negative) RSV RNA Qual (PCR) NEGATIVE (Negative) SARS-CoV-2 RNA (RT-PCR) NEGATIVE (Negative) Blood Type A Negative Antibody Screen NEGATIVE 01/01/24 Range/Units 03:55 WBC (4.8-10.8) X10*3/uL RBC (4.60-5.80) X10*6/uL Hgb (14.0-18.0) g/dl Hct (42.0-52.0) % MCV (80.0-98.0) fL MCH (27.0-33.0) pg MCHC (31.0-36.0) g/dl RDW (11.0-16.0) % Plt Count (160-400) X10*3/uL MPV (9.4-12.4) fL Immature Gran % (Auto) (0.0-0.4) % Neut % (Auto) (45-73) % Lymph % (Auto) (20-40) % Harper % (Auto) (2-11) % Eos % (Auto) (0-4) % Baso % (Auto) (0-2) % Lymph # (Auto) (1.2-4.9) X10*3/uL Harper # (Auto) (0.1-1.2) X10*3/uL Eos # (Auto) (0.0-0.4) X10*3/uL Baso # (Auto) (0.0-0.2) X10*3/uL Abs Immat Gran (auto) (0.00-0.03) X10*3/uL Absolute Neuts (auto) (2.0-8.3) x10*3/uL Absolute Nucleated RBC (0.0-0.012) X10*3/uL Nucleated RBC % (auto) (0.0-0.2) /100WBC PT (10.9-12.4) SEC INR (0.9-1.1) APTT (26.0-36.8) SEC VBG pH (7.32-7.43) VBG pCO2 mmHg VBG pO2 mmHg VBG HCO3 (22-26) mmol/L VBG O2 Saturation % VBG Base Excess mmol/L Sodium (135-145) mmol/L Potassium (3.3-5.1) mmol/L Chloride (96-108) mmol/L Carbon Dioxide (22-29) mmol/L Anion Gap (12-20) BUN (9-16) mg/dL Creatinine (0.5-1.4) mg/dL Estim Creat Clear Calc Estimated GFR Random Glucose (60-115) mg/dL Lactic Acid (0.5-2.0) mmol/L Lactic Acid F/U @ 2Hr 1.3 (0.5-2.0) mmol/L Calcium (8.4-10.2) mg/dL Magnesium (1.6-2.6) mg/dL Total Bilirubin (0.0-1.0) mg/dL Direct Bilirubin (0.0-0.5) mg/dL AST (5-37) U/L ALT (0-40) U/L Alkaline Phosphatase (39-117) U/L Ammonia (13-55) umol/L Total Creatine Kinase (38-174) U/L Troponin I High Sens (<3.5-35.0) ng/L C-Reactive Protein (< or = 0.50) mg/dL B-Natriuretic Peptide (<100) pg/mL Total Protein (6.5-8.0) g/dL Albumin (3.5-5.0) g/dL Lipase (8-78) U/L Procalcitonin ng/mL Ethyl Alcohol mg/dL Influenza Type A (PCR) (Negative) Influenza Type B (PCR) (Negative) RSV RNA Qual (PCR) (Negative) SARS-CoV-2 RNA (RT-PCR) (Negative) Blood Type Antibody Screen Independent Interpretation I performed an independent interpretation of an: EKG and Plain X-Ray (normal ) Interpretation: Rate: 97 Rhythm: NSR Jo[place]: normal Normal P waves. Normal IQRA. Normal QRS complex. ST T wave : no HARIKA, inverted t wave V1 qTC: 449 prior studies: no acute ischemia The study has been interpreted contemporaneously by me. . Radiology Impression Discussion of test interpretation with radiology: I have reviewed the radiologist's reading. Independent Historian Clinical information obtained from an independent historian. History obtained from or confirmed by: EMS External Record Review External record reviewed: Inpatient record Discharge Plan Discharge Clinical Impression: Weakness, Hypomagnesemia, Acute exacerbation of chronic obstructive pulmonary disease (COPD) Ascites Qualifiers: Ascites type: other type Qualified Code(s): R18.8 - Other ascites Patient Disposition: Admitted As Inpatient Print Language: Belarusian
[2024-01-01 01:42] LABS: MANUAL DIFF FLAG NO
[2024-01-01 01:45] LABS: Venous Blood Gas Refer to POC result
[2024-01-01 01:48] LABS: Basophils Absolute Auto 0.1 X10*3/uL (0.0-0.2); Basophils Percent Auto 1.1 % (0-2); Eosinophils Absolute Auto 0.1 X10*3/uL (0.0-0.4); Eosinophils Percent Auto 0.8 % (0-4); Hematocrit 34.2 % (42.0-52.0); Hemoglobin 11.5 g/dl (14.0-18.0); Imm Gran Abs Auto 0.04 X10*3/uL (0.00-0.03); Imm Gran Pct Auto 0.6 % (0.0-0.4); Lymphocytes Absolute Auto 0.9 X10*3/uL (1.2-4.9); Lymphocytes Percent Auto 14.4 % (20-40); Mean Corpuscular HGB Conc 33.6 g/dl (31.0-36.0); Mean Corpuscular Hemoglobin 36.6 pg (27.0-33.0); Mean Corpuscular Volume 108.9 fL (80.0-98.0); Mean Platelet Volume 10.7 fL (9.4-12.4); Monocytes Percent Auto 14.5 % (2-11); Neutrophils Absolute Auto 4.5 x10*3/uL (2.0-8.3); Neutrophils Percent Auto 68.6 % (45-73); Red Blood Count 3.14 X10*6/uL (4.60-5.80); Red Cell Distribution Width 17.8 % (11.0-16.0); White Blood Count 6.5 X10*3/uL (4.8-10.8)
[2024-01-01 01:48] LABS: VBG Base Excess 5.5 mmol/L; VBG HCO3 30 mmol/L (22-26); VBG pCO2 46 mmHg; VBG pH 7.42 (7.32-7.43); VBG pO2 56 mmHg
[2024-01-01 01:49] LABS: Platelet Count 82 X10*3/uL (160-400)
[2024-01-01 01:53] LABS: Ammonia 56 umol/L (13-55)
[2024-01-01 01:54] LABS: INTERNATIONAL NORM RATIO 1.1 (0.9-1.1); Prothrombin Time 13.1 SEC (10.9-12.4)
[2024-01-01 01:56] LABS: Partial Thromboplastin Time 34.2 SEC (26.0-36.8)
[2024-01-01 02:04] LABS: Lactic Acid 2.9 mmol/L (0.5-2.0)
[2024-01-01 02:05] LABS: B Type Natriuretic Peptide 30 pg/mL (<100); Troponin-I High Sensitivity 6.6 ng/L (<3.5-35.0)
[2024-01-01 02:09] LABS: Alanine Aminotransferase 28 U/L (0-40); Albumin Level 2.4 g/dL (3.5-5.0); Alkaline Phosphatase 264 U/L (39-117); Anion Gap 18 (12-20); Aspartate Amino Transferase 76 U/L (5-37); Bilirubin Direct 1.1 mg/dL (0.0-0.5); Bilirubin Total 1.7 mg/dL (0.0-1.0); Blood Urea Nitrogen 15 mg/dL (9-16); C Reactive Protein 3.42 mg/dL (< or = 0.50); Calcium 8.1 mg/dL (8.4-10.2); Carbon Dioxide 26 mmol/L (22-29); Chloride 95 mmol/L (96-108); Creatinine Clr Calc Pharmacy 108.6; Estimated Glomerular Filt Rate > 60; Ethanol 15 mg/dL; Glucose Random 145 mg/dL (60-115); Lipase 33 U/L (8-78); Magnesium 1.5 mg/dL (1.6-2.6); Potassium 3.3 mmol/L (3.3-5.1); Sodium 136 mmol/L (135-145); Total Protein 6.2 g/dL (6.5-8.0)
[2024-01-01] MEDS: Thiamine HCL 200 MG in 0.9 % Sodium Chloride 100 ML 204 MG IV (02:10)
[2024-01-01] MEDS: cefEPime HCl 2 GM in 0.9 % Sodium Chloride 50 ML IV (02:11)
[2024-01-01] MEDS: 0.9 % Sodium Chloride 500 ML IV (02:15)
[2024-01-01] MEDS: Albumin Human 25 % 100 ML 133.33 ML IV ×2 (02:19→02:42)
[2024-01-01 02:24] LABS: Influenza A PCR NEGATIVE (Negative); Influenza B PCR NEGATIVE (Negative); Resp Syncy Virus RNA Qual PCR NEGATIVE (Negative); SARS COV2 PCR INHOUSE NEGATIVE (Negative)
[2024-01-01] MEDS: Potassium Chloride Packet 20 MEQ PACKET 40 MEQ PO (02:26)
[2024-01-01 03:08] LABS: Procalcitonin 0.17 ng/mL
[2024-01-01] MEDS: Magnesium Sulfate/H2O 2 GM/50 ML PIGGYBACK IV (03:16)
[2024-01-01] MEDS: methylPREDNISolone Sod Succ 125 MG/2 ML VIAL 60 MG IVPUSH (03:37)
[2024-01-01 03:39] LABS: Reflex Lactate? Lactic Acid Added
[2024-01-01 04:24] LABS: ~Lactic Acid-LAB USE ONLY 1.3 mmol/L (0.5-2.0)
--- NOTE | 2024-01-01 05:14 | P.HPHOSP_ITS ---
History of Present Illness Date of Service: 01/01/24 Attending physician on admission: Dhaval Israel Chief Complaint: Weakness Tom Weber is a 58 years old man with past medical history significant for alcohol abuse, alcoholic liver + HCV cirrhosis, COPD -no home O2, HFpEF, hypertension, seizure disorder, type 2 diabetes mellitus, TIA, CAD s/p cardiac stenting presents to the emergency department complaining of generalized weakness over the last several days. He is vague historian and was somnolent. However, he was able to answer some questions. He denied any headache, nausea, vomiting or diarrhea. He denied abdominal pain. His abdomen has been distended but he is not sure for how long. Did not report any fevers or chills. Did not report any acute urinary symptoms. He continues to abuse alcohol and drinks about 7 nips of hard liquor daily, last use was last night. He also smoked tobacco but denies illicit drug use. Pressure review, most recent hospitalization was August of this year due to acute hypoxic respiratory failure. In the ED, he was found to have oxygen saturation 88% on room air and currently requiring 2 liters/minutes supplemental oxygen via nasal cannula. There is no tachycardia, fever or tachypnea. Blood workup is remarkable for hypomagnesemia and lactic acidosis that resolved with IV fluids and albumin. There is no lactic acidosis. LFTs are elevated. ED tx: Magnesium 2 mg IV, thiamine 200 mg IV, albumin 100 mL, thiamine cefepime 2 g IV, NS 500 mL bolus, Solu-Medrol 60 mg IV, phenobarbital 192 mg IM Review of Systems 2 Review of Systems: Yes Unobtainable due to mental status [facility] Medical History Thrombocytopenia Pneumonia COPD (chronic obstructive pulmonary disease) Diabetes Nicotine dependence, cigarettes, uncomplicated Tracheostomy care Respiratory failure Diastolic CHF Seizure disorder History of TIA (transient ischemic attack) History of hepatitis C CAD (coronary artery disease) HTN (hypertension) Insulin dependent type 2 diabetes mellitus Diabetic neuropathy Restrictive airway disease KD (obstructive sleep apnea) ETOH abuse Morbid obesity Transaminitis Fatty liver History of colon polyps Obesity Microalbuminuria Foot ulcer, left Fracture of right tibia and fibula Metatarsal bone fracture Family History Father CVD (cardiovascular disease) Colon cancer Mother No problems noted. Brother Liver cancer Paternal Aunt Colon cancer Surgical History History of surgery on lower extremity (~2019) History of lumbar spinal fusion History of colonoscopy (~2018) History of hernia repair History of cardiac catheterization (~2018) Social History Household Members: Spouse Household Members Other:: Housing: House Do you presently have visiting nurse or other home services: Yes Unable to assess alcohol history related to: Unable to respond Alcohol intake: former Patient Tobacco Use Status: Never used Tobacco Tobacco use type: Cigarette Years Smoked: onset 18yo, 1-2ppd x 37yrsm now 1/2ppd - 50pyh Smoked in Last 30 Days: Yes Second Hand Smoke Exposure: Yes Use of substances other than those prescribed or required for medical reasons: No Substance Use Type: Marijuana Advance Directives: Yes Advance Directives on File: Yes Advance Directives Date on File: 03/20/22 Do you have a plan to hurt others: No Plan service: No Current occupational status: disabled Current occupation: right handed Cognitive needs: No Hearing needs: No Vision needs: No Meds Allergies Allergy/AdvReac Type Severity Reaction Status Date / Time pineapple Allergy Severe Anaphylaxis Verified 01/01/24 01:15 cyclobenzaprine Allergy Unknown RASH Verified 01/01/24 01:15 [From FLEXERIL] penicillin V Allergy Unknown anaphylaxis Verified 01/01/24 01:15 FADIA Inhibitors AdvReac Severe Angioedema Verified 01/01/24 01:15 Active Medications: Current Medications Pharmacy Consult (Consult Rx Etoh Phenob Im/Po) 1 each MISCELLANE ONCE PRN; Protocol PRN Reason: Consult order Sodium Chloride (0.9 % Sodium Chloride Flush 3 Ml Syringe) 3 ml IVFLUSH [facility] Home Medications ?Medication ?Instructions ?Recorded ?Confirmed ?Last Taken ?Type aspirin 81 mg tablet,delayed 81 mg PO DAILY 03/17/22 09/18/23 07/05/23 History release duloxetine 30 mg capsule,delayed 1 cap PO BID 03/17/22 09/18/23 07/05/23 History release multivitamin 1 tab PO DAILY 03/17/22 09/18/23 07/05/23 History carbamazepine 200 mg tablet 200 mg PO BID 12/04/22 09/18/23 07/05/23 History pregabalin 200 mg capsule 200 mg PO TID 12/04/22 09/18/23 07/05/23 History albuterol sulfate 90 mcg/actuation 2 puff inhalation Q6H PRN 06/07/23 09/18/23 07/05/23 History aerosol inhaler shortness of breath or wheezing latanoprost 0.005 % eye drops 1 drp ophthalmic (eye) BEDTIME 06/07/23 09/18/23 07/05/23 History oxycodone 5 mg tablet 5 mg PO DAILY PRN Pain (Scale 09/10/23 09/18/23 Unknown History Score 4-6) Physical Exam 2 Vital Signs and Narrative: Vital Signs: Last Vital Signs Temp 98.5 F 01/01/24 02:00 Pulse 96 01/01/24 02:54 Resp 12 01/01/24 02:54 BP 103/64 01/01/24 02:54 Pulse Ox 95 01/01/24 02:54 O2 Del Method Nasal Cannula 01/01/24 02:54 O2 Flow Rate 2 01/01/24 02:54 Oxygen Flow Rate 3 01/01/24 01:14 BMI result Body Mass Index 34.8 Constitutional - Somnolent. Easy to arouse. Answer simple questions. Looks chronically ill and disheveled. HEENT - PERRL, EOMI. Icteric sclerae. Dry oral mucosa. Heart - RRR, No murmurs. Lungs - Normal lung expansion, Normal respiratory effort, No respiratory distress, CTA bilaterally Abdomen - Distended. Non tenderness. (+) fluid wave. Extremities - Pitting edema to the lower extremities. Musculoskeletal - generalized muscle atrophy. Skin - Warm/Dry. Neurological - Somnolent. No focal weakness grossly noted. Normal speech. Psychological - Not combative. Results Labs 01/01/24 01:39 01/01/24 01:39 Labs: Laboratory Results - last 24 hr 01/01/24 01/01/24 01/01/24 01:39 01:43 01:51 MCV 108.9 H MCH 36.6 H MCHC 33.6 RDW 17.8 H Plt Count 82 L MPV 10.7 Immature Gran % (Auto) 0.6 H Neut % (Auto) 68.6 Lymph % (Auto) 14.4 L [place] % (Auto) 14.5 H Eos % (Auto) 0.8 Baso % (Auto) 1.1 Lymph # (Auto) 0.9 L [place] # (Auto) 1.0 Eos # (Auto) 0.1 Baso # (Auto) 0.1 Abs Immat Gran (auto) 0.04 H Absolute Neuts (auto) 4.5 Absolute Nucleated RBC 0.000 Nucleated RBC % (auto) 0.0 PT 13.1 H INR 1.1 APTT 34.2 VBG pH 7.42 VBG pCO2 46 VBG pO2 56 VBG HCO3 30 H VBG O2 Saturation 79.0 VBG Base Excess 5.5 Anion Gap 18 Estim Creat Clear Calc 108.6 Estimated GFR > 60 Random Glucose 145 H Lactic Acid 2.9 H* Lactic Acid F/U @ 2Hr Calcium 8.1 L Magnesium 1.5 L Total Bilirubin 1.7 H Direct Bilirubin 1.1 H AST 76 H ALT 28 Alkaline Phosphatase 264 H Ammonia 56 H Total Creatine Kinase 93 Troponin I High Sens 6.6 D C-Reactive Protein 3.42 H B-Natriuretic Peptide 30 Total Protein 6.2 L Albumin 2.4 L Lipase 33 Procalcitonin 0.17 Ethyl Alcohol 15 Influenza Type A (PCR) NEGATIVE Influenza Type B (PCR) NEGATIVE RSV RNA Qual (PCR) NEGATIVE SARS-CoV-2 RNA (RT-PCR) NEGATIVE Blood Type A Negative Antibody Screen NEGATIVE 01/01/24 03:55 MCV MCH MCHC RDW Plt Count MPV Immature Gran % (Auto) Neut % (Auto) Lymph % (Auto) [place] % (Auto) Eos % (Auto) Baso % (Auto) Lymph # (Auto) [place] # (Auto) Eos # (Auto) Baso # (Auto) Abs Immat Gran (auto) Absolute Neuts (auto) Absolute Nucleated RBC Nucleated RBC % (auto) PT INR APTT VBG pH VBG pCO2 VBG pO2 VBG HCO3 VBG O2 Saturation VBG Base Excess Anion Gap Estim Creat Clear Calc Estimated GFR Random Glucose Lactic Acid Lactic Acid F/U @ 2Hr 1.3 Calcium Magnesium Total Bilirubin Direct Bilirubin AST ALT Alkaline Phosphatase Ammonia Total Creatine Kinase Troponin I High Sens C-Reactive Protein B-Natriuretic Peptide Total Protein Albumin Lipase Procalcitonin Ethyl Alcohol Influenza Type A (PCR) Influenza Type B (PCR) RSV RNA Qual (PCR) SARS-CoV-2 RNA (RT-PCR) Blood Type Antibody Screen Imaging Radiologist's Impressions: Impressions Chest X-Ray 01/01/24 01:21 IMPRESSION: *No acute cardiopulmonary abnormalities noted. *Chronic elevation of the right hemidiaphragm which may be secondary to diaphragmatic paresis. Electronically signed by: Ti Hooper MD 01/01/2024 02:59 AM EDT RP Assessment and Plan (1) Acute exacerbation of chronic obstructive pulmonary disease (COPD): Status: Acute (2) Hypomagnesemia: Status: Acute (3) Weakness: Status: Acute (4) Alcohol use disorder, severe, dependence: Status: Acute Plan Tom Weber is a 58 y/o man with PMHx significant for alcoholic liver + HCV cirrhosis admitted with: * Acute respiratory failure likely multifactorial: Hypoventilation due to encephalopathy, acute COPD exacerbation, sleep apnea. Admit to hospitalist service. Continue supplemental oxygen via nasal cannula to keep O2 sats >90%. Bronchodilator therapy. Start empiric IV antibiotic therapy with azithromycin. IV steroids. * Hepatic encephalopathy. Continue lactulose and rifaximin. Aspiration and precautions. NPO for now. * Ascites, no abdominal pain or evidence of acute infection. Continue spironolactone and Lasix. IR consult for therapeutic paracentesis. * Lactic acidosis secondary to alcohol abuse. Resolved. * Hypomagnesemia. Replete as needed. Continue to monitor magnesium level. * Type 2 diabetes mellitus. Insulin sliding scale. Blood glucose monitoring every 6 hours while NPO. * Elevated LFTs secondary to alcohol abuse. Continue to monitor. * Alcohol abuse. CIWA protocol. Continue thiamine. Folic acid and multivitamins. Per ED phenobarbital IM X1 given because the patient has high risk for seizures. No current symptoms of alcohol withdrawal noted. To consider phenobarbital protocol if patient develops withdrawal symptoms. Additional medicine consult. * Thrombocytopenia secondary to alcoholic liver disease. At baseline. Continue to monitor. * Hyperlipidemia. Continue statin. * Seizure disorder. Continue carbamazepine. * Tobacco dependence. Tobacco cessation education. * CAD/TIA. Continue aspirin and statin. * HEpEF. Currently compensated. Code status: Full DVT prophylaxis: SCDs -thrombocytopenia Patient will need hospitalization for at least 2 midnights for hypoxic respiratory failure and hepatic encephalopathy treatment with supplemental oxygen, bronchodilator therapy and IV antibiotics as well as close monitoring of neurological status. Quality Stroke Does the patient have a stroke diagnosis?: No VTE Prior VTE?: No VTE Risk Level:: Medical - moderate - high VTE Device Contraindication: N/A - Device Ordered VTE Drug Contraindication: Treatment Not Indicated
[2024-01-01] MEDS: Lactulose 20 GM/30 ML SOLUTION 30 GM PO (05:40)
[2024-01-01] MEDS: PHENobarbitaL sodium 130 MG/ML VIAL 192 MG IM (05:40)
[2024-01-01] MEDS: Albuterol/Iprat 2.5/0.5MG 3 ML AMPUL.NEB INHALE (05:55)
[2024-01-01 06:15] LABS: Appearance Urine Clear; Color Urine Yellow; Glucose Urine UA Negative (Negative); Leukocyte Esterase Urine Negative (Negative); Nitrite Urine Negative (Negative); PH 5.5 (5.0-9.0); Urine Blood Negative (Negative); Urine Ketones Negative (Negative); Urine Protein Negative (Neg-Trace)
--- NOTE | 2024-01-01 06:26 | PC.NURSE ---
pt cleaned and changed of urine and stool, [facility] applied
[2024-01-01 06:27] LABS: Amphetamine Screen Urine Not Detected (Not Detect); Barbiturates, Urine Not Detected (Not Detect); Benzodiazepines Screen Urine Not Detected (Not Detect); Buprenorphine Scr Not Detected (Not Detect); Cannabinoid Screen Urine Not Detected (Not Detect); Cocaine Screen Urine Not Detected (Not Detect); Fentanyl, urine Not Detected (Not Detect); Methadone Screen, Urine Not Detected (Not Detect); Opiate Screen Urine Not Detected (Not Detect); Oxycodone Screen Urine Positive (Not Detect); Phencyclidine Screen Urine Not Detected (Not Detect)
[2024-01-01] MEDS: 0.9 % Sodium Chloride Flush 3 ML SYRINGE IVFLUSH ×3 (07:51→21:20)
[2024-01-01 07:53] LABS: Glucose, Whole Blood 185 mg/dL (60-115)
--- NOTE | 2024-01-01 08:14 | PC.NURSE ---
found to be incontinent of large amount of loose stool and urine, patient cleaned and repositioned at this time. patient difficult to arouse w/ verbal and painful stimuli. poc 185.
--- NOTE | 2024-01-01 09:44 | PC.NURSE ---
incontinent of stool, changed and repositioned. patient becoming more alert at this time - able to help roll self in bed and responding to name, however promptly falling back to sleep.
[2024-01-01] MEDS: Azithromycin 500 MG in 0.9 % Sodium Chloride 250 ML 125 MG IV (09:50)
--- NOTE | 2024-01-01 10:01 | MHC.CM.PN ---
Attempted to meet with patient in regards to discharge planning. Patient currently sleeping. No family present. Will attempt to meet again. Continue to monitor for d/c needs.
--- NOTE | 2024-01-01 10:09 | PHA.MEDREC ---
Addendum entered by Swetha Silverio [facility] 01/01/24 10:42: [facility] was called, medications that states he takes have not been filled since June. insistent that he takes. Added to med rec Original Note: Pharmacy Consult ? Medication Reconciliation Pharmacy has completed the medication reconciliation. Confirmed medications with patient Elham over the phone and list that Elham read over the phone. She confirmed she injects him with 30 units of Lantus every night and she last did that last night. She also states her is on Metoprolol 50mg and has been filling it at [facility] on [facility] [facility] [address] in [place], she states he just ran out 2-3 days ago and has been waiting for the doctor to confirm refills for it. Elham confirmed her never ended up taking the Xifaxan 550mg tab due to his insurance not covering it and the charge was too high for them. She also states her is taking Lisionpril 10mg 1 tab daily and looking in claims we have nothing on file and she claims they are filling it at [facility] in [place]. She was able to confirm the Oxycodone 5mg tab and that he takes it 1 tab as needed for pain and he took it yesterday. She also confirmed he is still on Carbamazepine 200mg, Folic Acid, Nystatin powder and Spironolactone 100mg even tho they have not been filled in a bit but states they're being filled at [facility] in [place].
--- NOTE | 2024-01-01 11:38 | PM.EVENT ---
Event Note Date of Service: 01/01/24 Event Note: Seen and evaluated this morning altered mentaiton, response to physical stimuli, GCS of 10 having soft bowel movements received Phenobarbital before becoming more altered keep NPO start gentle hydration check US LE and US Paracentesis Continue Lactulose (PO and [place]) keep on CIWA Time Spent With Patient Time: Total time managing care of this patient today ____ minutes.
--- NOTE | 2024-01-01 11:42 | PC.NURSE ---
Addendum entered by Brittnee Swartz 01/01/24 11:48: patient able to state month and year - answering questions appropriately at this time. tremulous w/ arms outstretched. IV antibiotics continue to infuse d/t patient bending his arm. Original Note: patient awake, continues to be incontinent of stool and urine. provider holding pr lactulose d/t stool incontinence.
[2024-01-01] MEDS: PHENobarbitaL sodium 130 MG/ML VIAL 144 MG IM (12:00)
--- NOTE | 2024-01-01 12:24 | MHC.EDTECH ---
Patient got clean with the RN( Brittnee). and I put the [place] catheter in, Patient rest quietly in his bed within call carrizales in his reach.
[2024-01-01 12:32] LABS: Glucose, Whole Blood 199 mg/dL (60-115)
[2024-01-01 14:56] LABS: Anion Gap 13 (12-20); Blood Urea Nitrogen 14 mg/dL (9-16); Carbon Dioxide 29 mmol/L (22-29); Chloride 99 mmol/L (96-108); Creatinine Clr Calc Pharmacy 122.3; Estimated Glomerular Filt Rate > 60; Glucose Random 214 mg/dL (60-115); Potassium 3.4 mmol/L (3.3-5.1); Sodium 138 mmol/L (135-145)
[2024-01-01 16:17] LABS: Glucose, Whole Blood 198 mg/dL (60-115)
[2024-01-01] MEDS: methylPREDNISolone Sod Succ 40 MG/ML VIAL IVPUSH (17:36)
[2024-01-01 20:22] LABS: Glucose, Whole Blood 174 mg/dL (60-115)
[2024-01-01] MEDS: rifAXIMin 550 MG TABLET PO (21:14)
[2024-01-01] MEDS: PHENobarbitaL 30 MG TABLET 60 MG PO (21:14)
[2024-01-02] VITALS (8 sets, daily range): BP systolic 113–140; BP diastolic 65–81; PULSE 77–97; RESP 16–18; TEMP 36–37; O2SAT 93–97
[2024-01-02 05:28] LABS: MANUAL DIFF FLAG NO
[2024-01-02 05:31] LABS: Basophils Percent Auto 0.2 % (0-2); Eosinophils Percent Auto 0.2 % (0-4); Hemoglobin 10.8 g/dl (14.0-18.0); Imm Gran Abs Auto 0.03 X10*3/uL (0.00-0.03); Imm Gran Pct Auto 0.5 % (0.0-0.4); Lymphocytes Absolute Auto 0.9 X10*3/uL (1.2-4.9); Lymphocytes Percent Auto 13.5 % (20-40); Mean Corpuscular HGB Conc 33.8 g/dl (31.0-36.0); Mean Corpuscular Hemoglobin 36.7 pg (27.0-33.0); Mean Corpuscular Volume 108.8 fL (80.0-98.0); Mean Platelet Volume 11.2 fL (9.4-12.4); Monocytes Absolute Auto 0.6 X10*3/uL (0.1-1.2); Monocytes Percent Auto 9.2 % (2-11); Neutrophils Absolute Auto 4.9 x10*3/uL (2.0-8.3); Neutrophils Percent Auto 76.4 % (45-73); Red Blood Count 2.94 X10*6/uL (4.60-5.80); Red Cell Distribution Width 17.6 % (11.0-16.0); White Blood Count 6.4 X10*3/uL (4.8-10.8)
[2024-01-02 05:34] LABS: Platelet Count 64 X10*3/uL (160-400)
[2024-01-02 05:48] LABS: Alanine Aminotransferase 26 U/L (0-40); Albumin Level 2.6 g/dL (3.5-5.0); Alkaline Phosphatase 231 U/L (39-117); Anion Gap 14 (12-20); Aspartate Amino Transferase 58 U/L (5-37); Bilirubin Total 1.3 mg/dL (0.0-1.0); Blood Urea Nitrogen 14 mg/dL (9-16); Calcium 7.8 mg/dL (8.4-10.2); Carbon Dioxide 29 mmol/L (22-29); Chloride 99 mmol/L (96-108); Creatinine Clr Calc Pharmacy 136.4; Estimated Glomerular Filt Rate > 60; Glucose Random 158 mg/dL (60-115); Magnesium 1.8 mg/dL (1.6-2.6); Potassium 3.2 mmol/L (3.3-5.1); Sodium 139 mmol/L (135-145); Total Protein 6.1 g/dL (6.5-8.0)
[2024-01-02 07:48] LABS: Glucose, Whole Blood 139 mg/dL (60-115)
[2024-01-02] MEDS: Potassium Chloride ER 20 MEQ TAB.ER.PRT 40 MEQ PO (09:24)
[2024-01-02] MEDS: Thiamine HCL 100 MG in 0.9 % Sodium Chloride 100 ML 202 MG IV (09:24)
[2024-01-02] MEDS: 0.9 % Sodium Chloride Flush 3 ML SYRINGE IVFLUSH ×3 (09:31→20:24)
[2024-01-02] MEDS: PHENobarbitaL 30 MG TABLET 60 MG PO ×2 (10:01→20:24)
[2024-01-02] MEDS: Folic Acid 1 MG TABLET PO (10:08)
[2024-01-02] MEDS: rifAXIMin 550 MG TABLET PO ×2 (10:09→20:24)
[2024-01-02] MEDS: Azithromycin 500 MG in 0.9 % Sodium Chloride 250 ML 125 MG IV (10:31)
[2024-01-02] MEDS: Multivitamin TABLET 1 TAB PO (10:39)
[2024-01-02] MEDS: Furosemide 20 MG TABLET PO (10:39)
[2024-01-02] MEDS: Spironolactone 25 MG TABLET 50 MG PO (10:39)
[2024-01-02] MEDS: Lactulose 20 GM/30 ML SOLUTION PO (10:40)
[2024-01-02] MEDS: methylPREDNISolone Sod Succ 40 MG/ML VIAL IVPUSH ×2 (10:40→20:23)
--- NOTE | 2024-01-02 10:58 | P.PNIM_ITS ---
Subjective Subjective Date of Service: 01/02/24 Interval History: seen and evaluated this morning More alert and interactive mild hypokalemia asking for food no other events overnight Review of Systems Review of Systems: Yes all other systems are reviewed and are negative Physical Exam 2 Vital Signs: Vital Signs: Last Vital Signs Temp 97.0 F 01/02/24 08:08 Pulse 87 01/02/24 08:08 Resp 18 01/02/24 08:08 BP 140/81 H 01/02/24 10:39 Pulse Ox 94 01/02/24 08:08 O2 Del Method Nasal Cannula 01/02/24 08:08 O2 Flow Rate 2 01/02/24 08:08 Oxygen Flow Rate 3 01/01/24 01:14 BMI result Body Mass Index 34.8 Const: Other: Constitutional : Awake, interactive, not in distress Neck : Normal inspection, Supple Cardiovascular : RRR, no JVP, no lower extremity edema Respiratory : good bilateral air entry, no crackles, wheezes or rhonchi, on O2 supplement Gastrointestinal: soft, lax, Normal bowel sounds, Non tender, mildly distended , small amount ascites Skin : Warm, Dry Neurological : Alert & oriented x3, No focal deficit Objective Data Active Medications Albuterol/Ipratropium (Albuterol/Iprat 2.5/0.5mg 3 Ml Ampul.Neb) 3 ml INHALE Q4H PRN PRN Reason: Shortness of Breath/Wheezing Last Admin: 01/01/24 05:55 Dose: 3 ml Documented By: ARI Folic Acid (Folic Acid 1 Mg Tablet) 1 mg PO DAILY [facility] Last Admin: 01/02/24 10:08 Dose: 1 mg Documented By: REGINO Furosemide (Furosemide 20 Mg Tablet) 20 mg PO DAILY [facility]; Protocol Last Admin: 01/02/24 10:39 Dose: 20 mg Documented By: REGINO Glucose (Glucose Gel 15 Gm Gel..Gram.) 15 gm PO Q15M PRN; Protocol PRN Reason: per Hypoglycemia Standing Ord. Thiamine HCl 100 mg/ Sodium (Chloride) 101 mls @ 202 mls/hr IV DAILY [facility] Last Infusion: 01/02/24 10:56 Dose: Infused Documented By: ANDERSON Dextrose (D10) 250 mls @ 750 mls/hr IV Q15M PRN; Protocol PRN Reason: per Hypoglycemia Standing Ord. Azithromycin 500 mg/ Sodium (Chloride) 250 mls @ 125 mls/hr IV Q24H [facility] Last Admin: 01/02/24 10:31 Dose: 125 mls/hr Documented By: ANDERSON Insulin Human Lispro (Insulin Lispro 100 Unit/Ml 3 Ml Vial) 0 unit SUBCUT QIDACHS [facility]; Protocol Last Admin: 01/02/24 08:44 Dose: Not Given Documented By: ANDERSON Non-Admin Reason: No Insulin Coverage Lactulose (Lactulose 20 Gm/30 Ml Solution) 20 gm PO QID [facility] Last Admin: 01/02/24 10:40 Dose: 20 gm Documented By: REGINO Methylprednisolone Sodium Succinate (Methylprednisolone Sod Succ 40 Mg/Ml Vial) 40 mg IVPUSH BID [facility] Last Admin: 01/02/24 10:40 Dose: 40 mg Documented By: REGINO Multivitamins/Vitamin C (Multivitamin Tablet) 1 tab PO DAILY [facility] Last Admin: 01/02/24 10:39 Dose: 1 tab Documented By: REGINO Pharmacy Consult (Consult Rx Etoh Phenob Im/Po) 1 each MISCELLANE ONCE PRN; Protocol PRN Reason: Consult order Phenobarbital (Phenobarbital 30 Mg Tablet) 60 mg PO BID [facility] Stop: 01/02/24 21:01 Last Admin: 01/02/24 10:01 Dose: 60 mg Documented By: REGINO Phenobarbital (Phenobarbital 30 Mg Tablet) 30 mg PO BID [facility] Stop: 01/04/24 21:01 Phenobarbital (Phenobarbital 30 Mg Tablet) 30 mg PO DAILY [facility] Stop: 01/06/24 09:01 Rifaximin (Rifaximin 550 Mg Tablet) 550 mg PO BID [facility] Last Admin: 01/02/24 10:09 Dose: 550 mg Documented By: REGINO Sodium Chloride (0.9 % Sodium Chloride Flush 3 Ml Syringe) 3 ml IVFLUSH QSHIFT [facility] Last Admin: 01/02/24 09:31 Dose: 3 ml Documented By: ANDERSON Spironolactone (Spironolactone 25 Mg Tablet) 50 mg PO DAILY [facility]; Protocol Last Admin: 01/02/24 10:39 Dose: 50 mg Documented By: REGINO Labs 01/02/24 05:14 01/02/24 05:14 Labs: Laboratory Results - last 24 hr 01/01/24 01/01/24 01/01/24 12:29 14:34 16:07 MCV MCH MCHC RDW Plt Count MPV Immature Gran % (Auto) Neut % (Auto) Lymph % (Auto) Stewart % (Auto) Eos % (Auto) Baso % (Auto) Lymph # (Auto) Stewart # (Auto) Eos # (Auto) Baso # (Auto) Abs Immat Gran (auto) Absolute Neuts (auto) Absolute Nucleated RBC Nucleated RBC % (auto) Anion Gap 13 Estim Creat Clear Calc 122.3 Estimated GFR > 60 POC Glucose 199 H 198 H Random Glucose 214 H Calcium 8.0 L Magnesium 2.0 Total Bilirubin AST ALT Alkaline Phosphatase Total Protein Albumin 01/01/24 01/02/24 01/02/24 20:15 05:14 05:14 MCV 108.8 H Cancelled MCH 36.7 H MCHC RDW Plt Count MPV Immature Gran % (Auto) Neut % (Auto) Lymph % (Auto) Stewart % (Auto) Eos % (Auto) Baso % (Auto) Lymph # (Auto) Stewart # (Auto) Eos # (Auto) Baso # (Auto) Abs Immat Gran (auto) Absolute Neuts (auto) Absolute Nucleated RBC Nucleated RBC % (auto) Anion Gap Estim Creat Clear Calc Estimated GFR POC Glucose 174 H Random Glucose Calcium Magnesium Total Bilirubin AST ALT Alkaline Phosphatase Total Protein Albumin 01/02/24 01/02/24 01/02/24 05:14 05:14 05:14 MCV MCH Cancelled MCHC 33.8 Cancelled RDW 17.6 H Cancelled Plt Count 64 L MPV Immature Gran % (Auto) Neut % (Auto) Lymph % (Auto) Stewart % (Auto) Eos % (Auto) Baso % (Auto) Lymph # (Auto) Stewart # (Auto) Eos # (Auto) Baso # (Auto) Abs Immat Gran (auto) Absolute Neuts (auto) Absolute Nucleated RBC Nucleated RBC % (auto) Anion Gap Estim Creat Clear Calc Estimated GFR POC Glucose Random Glucose Calcium Magnesium Total Bilirubin AST ALT Alkaline Phosphatase Total Protein Albumin 01/02/24 01/02/24 01/02/24 05:14 05:14 05:14 MCV MCH MCHC RDW Plt Count Cancelled MPV 11.2 Cancelled Immature Gran % (Auto) 0.5 H Neut % (Auto) 76.4 H Lymph % (Auto) 13.5 L Stewart % (Auto) 9.2 Eos % (Auto) 0.2 Baso % (Auto) 0.2 Lymph # (Auto) 0.9 L Stewart # (Auto) 0.6 Eos # (Auto) 0.0 Baso # (Auto) 0.0 Abs Immat Gran (auto) 0.03 Absolute Neuts (auto) 4.9 Absolute Nucleated RBC 0.000 Cancelled Nucleated RBC % (auto) 0.0 Anion Gap Estim Creat Clear Calc Estimated GFR POC Glucose Random Glucose Calcium Magnesium Total Bilirubin AST ALT Alkaline Phosphatase Total Protein Albumin 01/02/24 01/02/24 01/02/24 05:14 05:14 05:14 MCV MCH MCHC RDW Plt Count MPV Immature Gran % (Auto) Neut % (Auto) Lymph % (Auto) Stewart % (Auto) Eos % (Auto) Baso % (Auto) Lymph # (Auto) Stewart # (Auto) Eos # (Auto) Baso # (Auto) Abs Immat Gran (auto) Absolute Neuts (auto) Absolute Nucleated RBC Nucleated RBC % (auto) Cancelled Anion Gap 14 Cancelled Estim Creat Clear Calc 136.4 Cancelled Estimated GFR > 60 POC Glucose Random Glucose Calcium Magnesium Total Bilirubin AST ALT Alkaline Phosphatase Total Protein Albumin 01/02/24 01/02/24 01/02/24 05:14 05:14 05:14 MCV MCH MCHC RDW Plt Count MPV Immature Gran % (Auto) Neut % (Auto) Lymph % (Auto) Stewart % (Auto) Eos % (Auto) Baso % (Auto) Lymph # (Auto) Stewart # (Auto) Eos # (Auto) Baso # (Auto) Abs Immat Gran (auto) Absolute Neuts (auto) Absolute Nucleated RBC Nucleated RBC % (auto) Anion Gap Estim Creat Clear Calc Estimated GFR Cancelled POC Glucose Random Glucose 158 H Cancelled Calcium 7.8 L Cancelled Magnesium 1.8 Total Bilirubin 1.3 H AST 58 H ALT 26 Alkaline Phosphatase 231 H Total Protein 6.1 L Albumin 2.6 L 01/02/24 07:37 MCV MCH MCHC RDW Plt Count MPV Immature Gran % (Auto) Neut % (Auto) Lymph % (Auto) Stewart % (Auto) Eos % (Auto) Baso % (Auto) Lymph # (Auto) Stewart # (Auto) Eos # (Auto) Baso # (Auto) Abs Immat Gran (auto) Absolute Neuts (auto) Absolute Nucleated RBC Nucleated RBC % (auto) Anion Gap Estim Creat Clear Calc Estimated GFR POC Glucose 139 H Random Glucose Calcium Magnesium Total Bilirubin AST ALT Alkaline Phosphatase Total Protein Albumin Microbiology Microbiology Results: Microbiology 01/01/24 01:51 Blood Culture - Preliminary Blood - Venous No growth after 24 hours. 01/01/24 01:39 Blood Culture - Preliminary Blood - Venous No growth after 24 hours. Assessment and Plan (1) Acute exacerbation of chronic obstructive pulmonary disease (COPD): Status: Acute (2) Hypomagnesemia: Status: Acute (3) Weakness: Status: Acute (4) Alcohol use disorder, severe, dependence: Status: Acute Plan Tom Weber is a 58 y/o man with PMHx significant for alcoholic liver + HCV cirrhosis admitted with: # Acute respiratory failure 2/2 acute COPD exacerbation, sleep apnea Continue supplemental oxygen via nasal cannula to keep O2 sats >90%. Bronchodilator therapy. empiric IV antibiotic therapy with azithromycin. IV steroids. Wean O2 down as tolerated physical therapy evaluation # Acute Hepatic encephalopathy. Improving , continue lactulose and rifaximin. Aspiration and precautions. # chronic Ascites 2/2 liver cirrhosis no abdominal pain or evidence of acute infection. US showing small amount, hold on Paracentesis Continue spironolactone and Lasix. # Hx of Alcohol abuse with withdrawal CIWA protocol. Continue thiamine. Folic acid and multivitamins. Started on phenobarbital protocoal as patient high risk for seizures. Additional medicine consult. # Acute Lactic acidosis secondary to alcohol abuse. Resolved. # Acute Hypomagnesemia. Replete as needed. Continue to monitor magnesium level. # Type 2 diabetes mellitus. Insulin sliding scale. # Elevated LFTs secondary to alcohol abuse. Continue to monitor. # Thrombocytopenia secondary to alcoholic liver disease. At baseline. Continue to monitor. # Hyperlipidemia. Continue statin. # Seizure disorder. Continue carbamazepine. # Tobacco dependence. Tobacco cessation education. # CAD/TIA. Continue aspirin and statin. # HEpEF. Currently compensated. Code status: Full DVT prophylaxis: SCDs -thrombocytopenia Patient will need hospitalization overnight for hypoxic respiratory failure and hepatic encephalopathy treatment with supplemental oxygen, bronchodilator therapy and IV antibiotics as well as close monitoring of neurological status. Quality Stroke Does the patient have a stroke diagnosis?: No VTE Prior VTE?: No VTE Risk Level:: Medical - moderate - high VTE Device Contraindication: N/A - Device Ordered VTE Drug Contraindication: Treatment Not Indicated
[2024-01-02] MEDS: DULoxetine HCl 30 MG CAPSULE.DR PO ×2 (11:40→20:24)
[2024-01-02] MEDS: Metoprolol Succinate ER 25 MG TAB.ER.24H PO ×2 (11:40→20:24)
[2024-01-02] MEDS: Furosemide 20 MG/2 ML VIAL IVPUSH (11:40)
[2024-01-02] MEDS: carBAMazepine 200 MG TABLET PO ×2 (11:40→20:24)
[2024-01-02 11:45] LABS: Glucose, Whole Blood 166 mg/dL (60-115)
[2024-01-02] MEDS: Insulin Lispro 100 UNIT/ML 3 ML VIAL SUBCUT ×3 (11:50→20:23)
[2024-01-02] MEDS: Loperamide HCl 2 MG CAPSULE PO (12:35)
--- NOTE | 2024-01-02 12:39 | MHC.CM.PN ---
PT LIVES WITH HIS ,THEY HAD NO PREVIOUS SERVICES PT HAS OWN TRANSPORTATION HOME IF PHYSICAL THERAPY RECOMMENDS STR FIRST CHOICE WOULD BE [facility] HE HAS BEEN THERE IN THE PAST DC PLAN TBD HOME W/VNA VS STR
--- NOTE | 2024-01-02 13:16 | MHC.CM.PN ---
PT LIVES HAS NO SERVIES HAS OWN RIDE HOME
--- NOTE | 2024-01-02 14:27 | MHC.RECOVRN ---
Met with pt in 359 after consult placed to Addiction Medicine for alcohol use. Pt had presented to the ED reporting weakness, lethargy, abdominal discomfort. Upon evaluation, pt admitted for acute exacerbation of COPD, hypomagnesemia, weakness, AUD. Pt laying in bed, awake, alert, engages in conversation. Pt reports feeling okay, denies withdrawal symptoms. Pt states even when I'm at home I don't feel withdrawal. Pt reports alcohol use, approx 8 nips vodka daily. Reports he will drink more if feeling pain in hands from neuropathy. Pt reports he began drinking alcohol in the around age 20. Pt reports longest period of time without alcohol has been a couple weeks. Pt continues to say I'll go without though if I'm in the hospital or a rehab. Pt is not interested in reducing amount or abstinence, states If I wanted to stop I would call my ken and go to AA. Pt reports he has been to 1 AA meeting. Pt reports he has not received treatment in the past for AUD. Pt denies concerns regarding alcohol use, pt denies alcohol use being related to medical conditions. Attempted to educate patient on possible correlation between alcohol use and medical conditions, pt continues to deny the relation. Pt was accepting of written resources and t/w contact information. Encouraged pt to reach out with questions or concerns. Pt currently denies questions/concerns for t/w. Discussed with Elham Barth APRN.
[2024-01-02] MEDS: Pregabalin 200 MG CAPSULE PO ×2 (15:12→20:23)
--- NOTE | 2024-01-02 15:50 | HO.WOUND ---
Wound Consult: Initial 58yr old?male admitted to [facility] on 01/01/24 - See progress notes and H&P for detailed history.? Wound consult placed for Left buttock.? Patient agreeable to assessment and photo documentation.? at the bedside patient reports no known injury to buttock but reports injury to right great toe. assessments detailed below Buttock Etiology: ??MASD Present on Admission Wound Bed: Intact red pink blanchable tissue Drainage / Odor: None Edges: ? mirrored Anabela wound: ? intact No Induration, Fluctuance or Warmth noted Pain: denies Goals of Treatment: ? barrier cream and off load pressure Right Great Toe Etiology: Traumatic wound Wound Bed: dried adherent scab Drainage / Odor: None Edges: ? irregular Anabela wound: erythema and mild swelling noted - ? No Induration, Fluctuance or Warmth noted Pain: denies - reports neuropathy Goals of Treatment: ? Betadine to dry and stabilize Recommendations: 1. Turn and Reposition every 2 hours and as needed for patient comfort.? Use pillows or wedges to support off loading positions. 2. Off Load all bony prominences with use of pillows and heel boots if needed.? Apply Preventative foams where needed. ? 3. Monitor for incontinence and moisture control, use barrier creams when needed for prevention and treatment. 4. Provide adequate and supplemental nutrition.? 5. Order low air loss mattress. 6. When applicable maintain blood glucose levels per Providers order. 7. Right Great Toe - [place] with Betadine, allow to dry, cover with dry gauze. Change Daily. 8. Buttock - Routine cleansing with PH balanced wipes, or spray. Apply barrier cream twice daily and PRN after incontinence episodes. Re-consult wound care Nurse for wound deterioration or wound changes.
[2024-01-02 16:12] LABS: Glucose, Whole Blood 325 mg/dL (60-115)
[2024-01-02 19:42] LABS: Glucose, Whole Blood 219 mg/dL (60-115)
[2024-01-03 03:33] VITALS: BP 127/90; PULSE 78; RESP 18; TEMP 36.6; O2SAT 94
[2024-01-03 07:19] LABS: Hematocrit 33.1 % (42.0-52.0); Hemoglobin 10.9 g/dl (14.0-18.0); Mean Corpuscular HGB Conc 32.9 g/dl (31.0-36.0); Mean Corpuscular Hemoglobin 36.3 pg (27.0-33.0); Mean Platelet Volume 11.1 fL (9.4-12.4); Red Cell Distribution Width 17.8 % (11.0-16.0); White Blood Count 6.4 X10*3/uL (4.8-10.8)
[2024-01-03 07:20] LABS: Mean Corpuscular Volume 110.3 fL (80.0-98.0); Platelet Count 52 X10*3/uL (160-400)
[2024-01-03 07:22] LABS: Glucose, Whole Blood 171 mg/dL (60-115)
[2024-01-03 07:35] VITALS: BP 109/62; PULSE 76; RESP 18; TEMP 36.4; O2SAT 93
[2024-01-03 07:41] LABS: Anion Gap 13 (12-20); Blood Urea Nitrogen 13 mg/dL (9-16); Calcium 8.1 mg/dL (8.4-10.2); Carbon Dioxide 32 mmol/L (22-29); Chloride 98 mmol/L (96-108); Creatinine Clr Calc Pharmacy 129.8; Estimated Glomerular Filt Rate > 60; Glucose Random 173 mg/dL (60-115); Potassium 3.5 mmol/L (3.3-5.1); Sodium 139 mmol/L (135-145)
[2024-01-03 07:42] LABS: Alanine Aminotransferase 25 U/L (0-40); Albumin Level 2.6 g/dL (3.5-5.0); Alkaline Phosphatase 214 U/L (39-117); Aspartate Amino Transferase 53 U/L (5-37); Bilirubin Direct 0.6 mg/dL (0.0-0.5); Magnesium 1.5 mg/dL (1.6-2.6); Total Protein 6.2 g/dL (6.5-8.0)
[2024-01-03] MEDS: methylPREDNISolone Sod Succ 40 MG/ML VIAL IVPUSH (08:26)
[2024-01-03] MEDS: Insulin Lispro 100 UNIT/ML 3 ML VIAL SUBCUT ×5 (08:26→21:31)
[2024-01-03] MEDS: Spironolactone 25 MG TABLET 50 MG PO (08:27)
[2024-01-03] MEDS: Multivitamin TABLET 1 TAB PO (08:27)
[2024-01-03] MEDS: Pregabalin 200 MG CAPSULE PO ×3 (08:27→20:05)
[2024-01-03] MEDS: Folic Acid 1 MG TABLET PO (08:27)
[2024-01-03] MEDS: Furosemide 20 MG TABLET PO (08:28)
[2024-01-03] MEDS: Metoprolol Succinate ER 25 MG TAB.ER.24H PO ×2 (08:28→20:02)
[2024-01-03] MEDS: Magnesium Oxide 400 MG TABLET PO ×2 (08:28→16:23)
[2024-01-03] MEDS: 0.9 % Sodium Chloride Flush 3 ML SYRINGE IVFLUSH ×3 (08:28→20:03)
[2024-01-03] MEDS: rifAXIMin 550 MG TABLET PO ×2 (08:28→20:02)
[2024-01-03] MEDS: PHENobarbitaL 30 MG TABLET PO ×2 (08:28→20:02)
[2024-01-03] MEDS: Aspirin Enteric Coated 81 MG TABLET.DR PO (08:28)
[2024-01-03] MEDS: Atorvastatin Calcium 40 MG TABLET PO (08:28)
[2024-01-03] MEDS: DULoxetine HCl 30 MG CAPSULE.DR PO ×2 (08:28→20:02)
[2024-01-03] MEDS: Magnesium Sulfate/H2O 2 GM/50 ML PIGGYBACK IV (08:29)
[2024-01-03] MEDS: Lactulose 20 GM/30 ML SOLUTION PO (08:33)
[2024-01-03] MEDS: carBAMazepine 200 MG TABLET PO ×2 (08:37→20:02)
[2024-01-03] MEDS: Azithromycin 500 MG in 0.9 % Sodium Chloride 250 ML 125 MG IV (08:51)
[2024-01-03] MEDS: Thiamine HCL 100 MG in 0.9 % Sodium Chloride 100 ML 202 MG IV (10:09)
--- NOTE | 2024-01-03 10:09 | HO.PM.IMPN ---
Subjective Subjective Date of Service: 01/03/24 Interval History: seen and evaluated this morning More alert and interactive hypokalemia corrected, has hypomagnesemia no other events overnight Review of Systems Review of Systems: Yes all other systems are reviewed and are negative Physical Exam Vital Signs: Vital Signs: Last Vital Signs Temp 97.6 F 01/03/24 07:35 Pulse 76 01/03/24 07:35 Resp 18 01/03/24 07:35 BP 109/62 01/03/24 07:35 Pulse Ox 93 01/03/24 07:35 O2 Del Method Nasal Cannula 01/03/24 07:35 O2 Flow Rate 2 01/03/24 07:35 Oxygen Flow Rate 3 01/01/24 01:14 BMI result Body Mass Index 34.8 Const: Other: Constitutional : Awake, interactive, not in distress Neck : Normal inspection, Supple Cardiovascular : RRR, no JVP, no lower extremity edema Respiratory : good bilateral air entry, no crackles, wheezes or rhonchi, on O2 supplement Gastrointestinal: soft, lax, Normal bowel sounds, Non tender, mildly distended , small amount ascites Skin : Warm, Dry Neurological : Alert & oriented x3, No focal deficit Objective Data Active Medications Albuterol Sulfate (Albuterol Sulfate 90 Mcg 8 Gm Inhaler) 2 puff INHALE Q6H PRN PRN Reason: shortness of breath or wheezing Albuterol/Ipratropium (Albuterol/Iprat 2.5/0.5mg 3 Ml Ampul.Neb) 3 ml INHALE Q4H PRN PRN Reason: Shortness of Breath/Wheezing Last Admin: 01/01/24 05:55 Dose: 3 ml Documented By: ARI Aspirin (Aspirin Enteric Coated 81 Mg Tablet.) 81 mg PO DAILY [facility] Last Admin: 01/03/24 08:28 Dose: 81 mg Documented By: NISHANT Atorvastatin Calcium (Atorvastatin Calcium 40 Mg Tablet) 40 mg PO DAILY [facility] Last Admin: 01/03/24 08:28 Dose: 40 mg Documented By: NISHANT Carbamazepine (Carbamazepine 200 Mg Tablet) 200 mg PO BID [facility] Last Admin: 01/03/24 08:37 Dose: 200 mg Documented By: NISHANT Duloxetine HCl (Duloxetine Hcl 30 Mg Capsule.) 30 mg PO BID [facility] Last Admin: 01/03/24 08:28 Dose: 30 mg Documented By: NISHANT Folic Acid (Folic Acid 1 Mg Tablet) 1 mg PO DAILY [facility] Last Admin: 01/03/24 08:27 Dose: 1 mg Documented By: NISHANT Furosemide (Furosemide 20 Mg Tablet) 20 mg PO DAILY [facility]; Protocol Last Admin: 01/03/24 08:28 Dose: 20 mg Documented By: NISHANT Glucose (Glucose Gel 15 Gm Gel..Gram.) 15 gm PO Q15M PRN; Protocol PRN Reason: per Hypoglycemia Standing Ord. Thiamine HCl 100 mg/ Sodium (Chloride) 101 mls @ 202 mls/hr IV DAILY [facility] Last Infusion: 01/02/24 10:56 Dose: Infused Documented By: ANDERSON Dextrose (D10) 250 mls @ 750 mls/hr IV Q15M PRN; Protocol PRN Reason: per Hypoglycemia Standing Ord. Azithromycin 500 mg/ Sodium (Chloride) 250 mls @ 125 mls/hr IV Q24H [facility] Last Admin: 01/03/24 08:51 Dose: 125 mls/hr Documented By: NISHANT Insulin Human Lispro (Insulin Lispro 100 Unit/Ml 3 Ml Vial) 0 unit SUBCUT QIDACHS [facility]; Protocol Last Admin: 01/03/24 08:26 Dose: 2 unit Documented By: NISHANT Lactulose (Lactulose 20 Gm/30 Ml Solution) 20 gm PO QID [facility] Last Admin: 01/03/24 08:33 Dose: 20 gm Documented By: NISHANT Loperamide HCl (Loperamide Hcl 2 Mg Capsule) 2 mg PO Q6H PRN PRN Reason: Diarrhea Last Admin: 01/02/24 12:35 Dose: 2 mg Documented By: ANDERSON Magnesium Oxide (Magnesium Oxide 400 Mg Tablet) 400 mg PO BIDPC [facility] Last Admin: 01/03/24 08:28 Dose: 400 mg Documented By: NISHANT Methylprednisolone Sodium Succinate (Methylprednisolone Sod Succ 40 Mg/Ml Vial) 40 mg IVPUSH BID [facility] Last Admin: 01/03/24 08:26 Dose: 40 mg Documented By: NISHANT Metoprolol Succinate (Metoprolol Succinate Er 25 Mg Tab.Er.24h) 25 mg PO BID [facility]; Protocol Last Admin: 01/03/24 08:28 Dose: 25 mg Documented By: NISHANT Multivitamins/Vitamin C (Multivitamin Tablet) 1 tab PO DAILY [facility] Last Admin: 01/03/24 08:27 Dose: 1 tab Documented By: NISHANT Oxycodone HCl (Oxycodone Hcl Immed Release 5 Mg Tablet) 5 mg PO DAILY PRN PRN Reason: Pain (Scale Score 4-6) Pharmacy Consult (Consult Rx Etoh Phenob Im/Po) 1 each MISCELLANE ONCE PRN; Protocol PRN Reason: Consult order Phenobarbital (Phenobarbital 30 Mg Tablet) 30 mg PO BID [facility] Stop: 01/04/24 21:01 Last Admin: 01/03/24 08:28 Dose: 30 mg Documented By: NISHANT Phenobarbital (Phenobarbital 30 Mg Tablet) 30 mg PO DAILY [facility] Stop: 01/06/24 09:01 Pregabalin (Pregabalin 200 Mg Capsule) 200 mg PO TID [facility] Last Admin: 01/03/24 08:27 Dose: 200 mg Documented By: NISHANT Rifaximin (Rifaximin 550 Mg Tablet) 550 mg PO BID [facility] Last Admin: 01/03/24 08:28 Dose: 550 mg Documented By: NISHANT Sodium Chloride (0.9 % Sodium Chloride Flush 3 Ml Syringe) 3 ml IVFLUSH QSHIFT [facility] Last Admin: 01/03/24 08:28 Dose: 3 ml Documented By: NISHANT Spironolactone (Spironolactone 25 Mg Tablet) 50 mg PO DAILY [facility]; Protocol Last Admin: 01/03/24 08:27 Dose: 50 mg Documented By: NISHANT Labs 01/03/24 06:27 01/03/24 06:27 Labs: Laboratory Results - last 24 hr 01/02/24 01/02/24 01/02/24 11:42 16:06 19:34 MCV MCH MCHC RDW Plt Count MPV Absolute Nucleated RBC Nucleated RBC % (auto) Anion Gap Estim Creat Clear Calc Estimated GFR POC Glucose 166 H 325 H 219 H Random Glucose Calcium Magnesium Total Bilirubin Direct Bilirubin AST ALT Alkaline Phosphatase Total Protein Albumin 01/03/24 01/03/24 06:27 07:13 MCV 110.3 H MCH 36.3 H MCHC 32.9 RDW 17.8 H Plt Count 52 L MPV 11.1 Absolute Nucleated RBC 0.000 Nucleated RBC % (auto) 0.0 Anion Gap 13 Estim Creat Clear Calc 129.8 Estimated GFR > 60 POC Glucose 171 H Random Glucose 173 H Calcium 8.1 L Magnesium 1.5 L Total Bilirubin 1.0 Direct Bilirubin 0.6 H AST 53 H ALT 25 Alkaline Phosphatase 214 H Total Protein 6.2 L Albumin 2.6 L Microbiology Microbiology Results: Microbiology 01/01/24 01:51 Blood Culture - Preliminary Blood - Venous No growth after 48 hours. 01/01/24 01:39 Blood Culture - Preliminary Blood - Venous No growth after 48 hours. Assessment and Plan (1) Acute exacerbation of chronic obstructive pulmonary disease (COPD): Status: Acute (2) Hypomagnesemia: Status: Acute (3) Alcohol use disorder, severe, dependence: Status: Acute Plan oTm Weber is a 58 y/o man with PMHx significant for alcoholic liver + HCV cirrhosis admitted with: # Acute respiratory failure 2/2 acute COPD exacerbation, sleep apnea Continue supplemental oxygen via nasal cannula to keep O2 sats >90%. Bronchodilator therapy. change azithromycin. to PO change IV steroids to PO Wean O2 down as tolerated physical therapy rec STR # Acute Hepatic encephalopathy. Improving , continue lactulose and rifaximin. # chronic Ascites 2/2 liver cirrhosis no abdominal pain or evidence of acute infection. US showing small amount, hold on Paracentesis Continue spironolactone and Lasix. # Hx of Alcohol abuse with withdrawal CIWA protocol. Continue thiamine. Folic acid and multivitamins. phenobarbital protocoal as patient high risk for seizures. Additional medicine consult. # Acute Hypomagnesemia. Repleted with IV and PO. Continue to monitor magnesium level. # Acute Lactic acidosis secondary to alcohol abuse. Resolved. # Type 2 diabetes mellitus. Insulin sliding scale. # Elevated LFTs secondary to alcohol abuse. Continue to monitor. # Thrombocytopenia secondary to alcoholic liver disease. At baseline. Continue to monitor. # Hyperlipidemia. Continue statin. # Seizure disorder. Continue carbamazepine. # Tobacco dependence. Tobacco cessation education. # CAD/TIA. Continue aspirin and statin. # HEpEF. Currently compensated. Code status: Full DVT prophylaxis: SCDs -thrombocytopenia Patient will need hospitalization overnight for hypoxic respiratory failure and hepatic encephalopathy treatment with supplemental oxygen, bronchodilator therapy as well as close monitoring of neurological status pending safe discharge plan Quality Stroke Does the patient have a stroke diagnosis?: No VTE Prior VTE?: No VTE Risk Level:: Medical - moderate - high VTE Device Contraindication: N/A - Device Ordered VTE Drug Contraindication: Treatment Not Indicated
[2024-01-03 11:24] LABS: Glucose, Whole Blood 234 mg/dL (60-115)
[2024-01-03] MEDS: Loperamide HCl 2 MG CAPSULE PO (13:59)
[2024-01-03 15:09] VITALS: BP 116/72; PULSE 82; RESP 16; TEMP 36.1; O2SAT 92
[2024-01-03 15:35] LABS: Glucose, Whole Blood 410 mg/dL (60-115)
[2024-01-03 19:24] VITALS: BP 129/75; PULSE 81; RESP 14; TEMP 36.2; O2SAT 93
[2024-01-03 20:02] VITALS: BP 129/75; PULSE 87
[2024-01-03 20:38] LABS: Glucose, Whole Blood 232 mg/dL (60-115)
[2024-01-03] MEDS: Insulin Glargine,Hum.rec.anlog 100 UNIT/ML 10 ML VIAL 20 UNIT SUBCUT (21:30)
[2024-01-04 03:59] VITALS: BP 138/82; PULSE 72; RESP 18; TEMP 36.1; O2SAT 96
[2024-01-04 07:20] VITALS: BP 124/87; PULSE 71; RESP 18; TEMP 35.9; O2SAT 92
[2024-01-04 07:22] LABS: Glucose, Whole Blood 111 mg/dL (60-115)
[2024-01-04 08:07] LABS: Anion Gap 13 (12-20); Blood Urea Nitrogen 11 mg/dL (9-16); Calcium 7.8 mg/dL (8.4-10.2); Carbon Dioxide 32 mmol/L (22-29); Chloride 100 mmol/L (96-108); Creatinine Clr Calc Pharmacy 163.7; Estimated Glomerular Filt Rate > 60; Glucose Random 93 mg/dL (60-115); Sodium 142 mmol/L (135-145)
[2024-01-04 08:10] LABS: Magnesium 1.9 mg/dL (1.6-2.6)
[2024-01-04 08:41] VITALS: BP 123/77
[2024-01-04] MEDS: Aspirin Enteric Coated 81 MG TABLET.DR PO (08:41)
[2024-01-04] MEDS: Pregabalin 200 MG CAPSULE PO ×3 (08:41→20:28)
[2024-01-04] MEDS: 0.9 % Sodium Chloride Flush 3 ML SYRINGE IVFLUSH ×2 (08:41→16:39)
[2024-01-04] MEDS: Atorvastatin Calcium 40 MG TABLET PO (08:41)
[2024-01-04] MEDS: Thiamine HCL 100 MG in 0.9 % Sodium Chloride 100 ML 202 MG IV (08:41)
[2024-01-04] MEDS: Spironolactone 25 MG TABLET 50 MG PO (08:41)
[2024-01-04 08:44] VITALS: BP 123/77; PULSE 85
[2024-01-04] MEDS: rifAXIMin 550 MG TABLET PO ×2 (08:44→20:28)
[2024-01-04] MEDS: DULoxetine HCl 30 MG CAPSULE.DR PO ×2 (08:44→20:28)
[2024-01-04] MEDS: Furosemide 20 MG TABLET PO (08:44)
[2024-01-04] MEDS: Magnesium Oxide 400 MG TABLET PO ×2 (08:44→16:38)
[2024-01-04] MEDS: PHENobarbitaL 30 MG TABLET PO ×2 (08:44→20:28)
[2024-01-04] MEDS: Multivitamin TABLET 1 TAB PO (08:44)
[2024-01-04] MEDS: Azithromycin 250 MG TABLET PO (08:44)
[2024-01-04] MEDS: Folic Acid 1 MG TABLET PO (08:44)
[2024-01-04] MEDS: carBAMazepine 200 MG TABLET PO ×2 (08:44→20:28)
[2024-01-04] MEDS: Metoprolol Succinate ER 25 MG TAB.ER.24H PO ×2 (08:44→20:28)
[2024-01-04] MEDS: predniSONE 20 MG TABLET 40 MG PO (08:44)
[2024-01-04 11:24] LABS: Glucose, Whole Blood 264 mg/dL (60-115)
[2024-01-04] MEDS: Insulin Lispro 100 UNIT/ML 3 ML VIAL SUBCUT ×3 (11:45→20:30)
--- NOTE | 2024-01-04 12:10 | P.PNIM_ITS ---
Subjective Subjective Date of Service: 01/04/24 Interval History: seen and evaluated this morning alert and interactive hypokalemia this morning no other events overnight Review of Systems Review of Systems: Yes all other systems are reviewed and are negative Physical Exam 2 Vital Signs: Vital Signs: Last Vital Signs Temp 96.6 F L 01/04/24 07:20 Pulse 85 01/04/24 08:44 Resp 18 01/04/24 07:20 BP 123/77 01/04/24 08:44 Pulse Ox 92 01/04/24 07:20 O2 Del Method Room Air 01/04/24 07:20 O2 Flow Rate 2 01/03/24 07:35 Oxygen Flow Rate 3 01/01/24 01:14 BMI result Body Mass Index 34.8 Const: Other: Constitutional : Awake, interactive, not in distress Neck : Normal inspection, Supple Cardiovascular : RRR, no JVP, no lower extremity edema Respiratory : good bilateral air entry, no crackles, wheezes or rhonchi, on O2 supplement Gastrointestinal: soft, lax, Normal bowel sounds, Non tender, mildly distended , small amount ascites Skin : Warm, Dry Neurological : Alert & oriented x3, No focal deficit Objective Data Active Medications Albuterol Sulfate (Albuterol Sulfate 90 Mcg 8 Gm Inhaler) 2 puff INHALE Q6H PRN PRN Reason: shortness of breath or wheezing Albuterol/Ipratropium (Albuterol/Iprat 2.5/0.5mg 3 Ml Ampul.Neb) 3 ml INHALE Q4H PRN PRN Reason: Shortness of Breath/Wheezing Last Admin: 01/01/24 05:55 Dose: 3 ml Documented By: ARI Aspirin (Aspirin Enteric Coated 81 Mg Tablet.) 81 mg PO DAILY [facility] Last Admin: 01/04/24 08:41 Dose: 81 mg Documented By: NISHANT Atorvastatin Calcium (Atorvastatin Calcium 40 Mg Tablet) 40 mg PO DAILY [facility] Last Admin: 01/04/24 08:41 Dose: 40 mg Documented By: NISHANT Azithromycin (Azithromycin 250 Mg Tablet) 250 mg PO Q24H [facility] Last Admin: 01/04/24 08:44 Dose: 250 mg Documented By: NISHANT Carbamazepine (Carbamazepine 200 Mg Tablet) 200 mg PO BID [facility] Last Admin: 01/04/24 08:44 Dose: 200 mg Documented By: NISHANT Duloxetine HCl (Duloxetine Hcl 30 Mg Capsule.Dr) 30 mg PO BID [facility] Last Admin: 01/04/24 08:44 Dose: 30 mg Documented By: NISHANT Folic Acid (Folic Acid 1 Mg Tablet) 1 mg PO DAILY [facility] Last Admin: 01/04/24 08:44 Dose: 1 mg Documented By: NISHANT Furosemide (Furosemide 20 Mg Tablet) 20 mg PO DAILY [facility]; Protocol Last Admin: 01/04/24 08:44 Dose: 20 mg Documented By: NISHANT Glucose (Glucose Gel 15 Gm Gel..Gram.) 15 gm PO Q15M PRN; Protocol PRN Reason: per Hypoglycemia Standing Ord. Thiamine HCl 100 mg/ Sodium (Chloride) 101 mls @ 202 mls/hr IV DAILY [facility] Last Infusion: 01/04/24 09:33 Dose: Infused Documented By: NISHANT Dextrose (D10) 250 mls @ 750 mls/hr IV Q15M PRN; Protocol PRN Reason: per Hypoglycemia Standing Ord. Insulin Glargine (Insulin Glargine,Hum.Rec.Anlog 100 Unit/Ml 10 Ml Vial) 20 unit SUBCUT BEDTIME [facility] Last Admin: 01/03/24 21:30 Dose: 20 unit Documented By: CASTILM Insulin Human Lispro (Insulin Lispro 100 Unit/Ml 3 Ml Vial) 0 unit SUBCUT QIDACHS [facility]; Protocol Last Admin: 01/04/24 11:45 Dose: 6 unit Documented By: NISHANT Lactulose (Lactulose 20 Gm/30 Ml Solution) 20 gm PO QID [facility] Last Admin: 01/04/24 08:45 Dose: Not Given Documented By: NISHANT Non-Admin Reason: Patient Refused Loperamide HCl (Loperamide Hcl 2 Mg Capsule) 2 mg PO Q6H PRN PRN Reason: Diarrhea Last Admin: 01/03/24 13:59 Dose: 2 mg Documented By: NISHANT Magnesium Oxide (Magn[facility]ide 400 Mg Tablet) [facility] Last Admin: 01/04/24 08:44 Dose: 400 mg Documented By: NISHANT Metoprolol Succinate (Metoprolol Succinate Er 25 Mg Tab.Er.24h) 25 mg PO BID [facility]; Protocol Last Admin: 01/04/24 08:44 Dose: 25 mg Documented By: NISHANT Multivitamins/Vitamin C (Multivitamin Tablet) 1 tab PO DAILY [facility] Last Admin: 01/04/24 08:44 Dose: 1 tab Documented By: NISHANT Oxycodone HCl (Oxycodone Hcl Immed Release 5 Mg Tablet) 5 mg PO DAILY PRN PRN Reason: Pain (Scale Score 4-6) Pharmacy Consult (Consult Rx Etoh Phenob Im/Po) 1 each MISCELLANE ONCE PRN; Protocol PRN Reason: Consult order Phenobarbital (Phenobarbital 30 Mg Tablet) 30 mg PO BID [facility] Stop: 01/04/24 21:01 Last Admin: 01/04/24 08:44 Dose: 30 mg Documented By: NISHANT Phenobarbital (Phenobarbital 30 Mg Tablet) 30 mg PO DAILY [facility] Stop: 01/06/24 09:01 Prednisone (Prednisone 20 Mg Tablet) 40 mg PO DAILY [facility] Last Admin: 01/04/24 08:44 Dose: 40 mg Documented By: NISHANT Pregabalin (Pregabalin 200 Mg Capsule) 200 mg PO TID [facility] Last Admin: 01/04/24 08:41 Dose: 200 mg Documented By: NISHANT Rifaximin (Rifaximin 550 Mg Tablet) 550 mg PO BID [facility] Last Admin: 01/04/24 08:44 Dose: 550 mg Documented By: NISHANT Sodium Chloride (0.9 % Sodium Chloride Flush 3 Ml Syringe) 3 ml IVFLUSH QSHIFT [facility] Last Admin: 01/04/24 08:41 Dose: 3 ml Documented By: NISHANT Spironolactone (Spironolactone 25 Mg Tablet) 50 mg PO DAILY [facility]; Protocol Last Admin: 01/04/24 08:41 Dose: 50 mg Documented By: NISHANT Labs 01/03/24 06:27 01/04/24 06:02 Labs: Laboratory Results - last 24 hr 01/03/24 01/03/24 01/04/24 15:30 20:29 06:02 Anion Gap 13 Estim Creat Clear Calc 163.7 Estimated GFR > 60 POC Glucose 410 H* 232 H Random Glucose 93 Calcium 7.8 L Magnesium 1.9 01/04/24 01/04/24 07:18 11:17 Anion Gap Estim Creat Clear Calc Estimated GFR POC Glucose 111 264 H Random Glucose Calcium Magnesium Assessment and Plan (1) Acute exacerbation of chronic obstructive pulmonary disease (COPD): Status: Acute (2) Hypomagnesemia: Status: Acute (3) Alcohol use disorder, severe, dependence: Status: Acute (4) Transaminitis: Status: Acute (5) Acute hepatic encephalopathy: Status: Acute Plan Tom Weber is a 58 y/o man with PMHx significant for alcoholic liver + HCV cirrhosis admitted with: # Acute respiratory failure 2/2 acute COPD exacerbation, sleep apnea Continue supplemental oxygen via nasal cannula to keep O2 sats >90%. Bronchodilator therapy. change azithromycin. to PO change IV steroids to PO Wean O2 down as tolerated physical therapy rec STR # Acute Hypokalemia replacement given, follow BMP # PHysical deconditioning PT rec STR, pending placement # Acute Hepatic encephalopathy. Improved , continue lactulose and rifaximin. # chronic Ascites 2/2 liver cirrhosis no abdominal pain or evidence of acute infection. US showing small amount, hold on Paracentesis Continue spironolactone and Lasix. # Hx of Alcohol abuse with withdrawal CIWA protocol. Continue thiamine. Folic acid and multivitamins. phenobarbital protocoal as patient high risk for seizures. Additional medicine consult. # Acute Hypomagnesemia. Repleted with IV and PO. Continue to monitor magnesium level. # Acute Lactic acidosis secondary to alcohol abuse. Resolved. # Type 2 diabetes mellitus. Insulin sliding scale. # Elevated LFTs secondary to alcohol abuse. Continue to monitor. # Thrombocytopenia secondary to alcoholic liver disease. At baseline. Continue to monitor. # Hyperlipidemia. Continue statin. # Seizure disorder. Continue carbamazepine. # Tobacco dependence. Tobacco cessation education. # CAD/TIA. Continue aspirin and statin. # HEpEF. Currently compensated. Code status: Full DVT prophylaxis: SCDs -thrombocytopenia Patient will need hospitalization overnight for alcohol withdrawal treatment and STR placement as he is high risk for falling Quality Stroke Does the patient have a stroke diagnosis?: No VTE Prior VTE?: No VTE Risk Level:: Medical - moderate - high VTE Device Contraindication: N/A - Device Ordered VTE Drug Contraindication: Treatment Not Indicated
[2024-01-04] MEDS: Potassium Chloride ER 20 MEQ TAB.ER.PRT 40 MEQ PO (12:20)
[2024-01-04] MEDS: Loperamide HCl 2 MG CAPSULE PO (12:32)
[2024-01-04 15:31] VITALS: BP 130/77; PULSE 80; RESP 18; TEMP 36.1; O2SAT 93
[2024-01-04 16:06] LABS: Glucose, Whole Blood 337 mg/dL (60-115)
[2024-01-04 19:38] LABS: Glucose, Whole Blood 333 mg/dL (60-115)
[2024-01-04] MEDS: Insulin Glargine,Hum.rec.anlog 100 UNIT/ML 10 ML VIAL 20 UNIT SUBCUT (20:29)
[2024-01-05] MEDS: 0.9 % Sodium Chloride Flush 3 ML SYRINGE IVFLUSH ×2 (00:30→07:55)
[2024-01-05 03:20] VITALS: BP 128/60; PULSE 83; RESP 18; TEMP 36.3; O2SAT 92
[2024-01-05 06:47] LABS: Anion Gap 10 (12-20); Blood Urea Nitrogen 10 mg/dL (9-16); Calcium 8.3 mg/dL (8.4-10.2); Carbon Dioxide 33 mmol/L (22-29); Chloride 104 mmol/L (96-108); Creatinine Clr Calc Pharmacy 158.9; Estimated Glomerular Filt Rate > 60; Glucose Random 100 mg/dL (60-115); Potassium 3.8 mmol/L (3.3-5.1); Sodium 143 mmol/L (135-145)
[2024-01-05 07:18] VITALS: BP 112/69; PULSE 77; RESP 18; TEMP 36.2; O2SAT 93
[2024-01-05 07:26] LABS: Glucose, Whole Blood 149 mg/dL (60-115)
[2024-01-05] MEDS: Multivitamin TABLET 1 TAB PO (07:56)
[2024-01-05] MEDS: Atorvastatin Calcium 40 MG TABLET PO (07:56)
[2024-01-05] MEDS: oxyCODONE HCl Immed Release 5 MG TABLET PO (07:56)
[2024-01-05] MEDS: PHENobarbitaL 30 MG TABLET PO (07:56)
[2024-01-05] MEDS: Aspirin Enteric Coated 81 MG TABLET.DR PO (07:56)
[2024-01-05] MEDS: Thiamine HCL 100 MG TABLET PO (07:56)
[2024-01-05] MEDS: DULoxetine HCl 30 MG CAPSULE.DR PO (07:56)
[2024-01-05] MEDS: Magnesium Oxide 400 MG TABLET PO ×2 (07:56→16:50)
[2024-01-05] MEDS: Pregabalin 200 MG CAPSULE PO ×2 (07:57→13:55)
[2024-01-05] MEDS: Azithromycin 250 MG TABLET PO (07:57)
[2024-01-05] MEDS: Spironolactone 25 MG TABLET 50 MG PO (07:57)
[2024-01-05] MEDS: predniSONE 20 MG TABLET 40 MG PO (07:57)
[2024-01-05] MEDS: Folic Acid 1 MG TABLET PO (07:57)
[2024-01-05] MEDS: rifAXIMin 550 MG TABLET PO (07:57)
[2024-01-05] MEDS: carBAMazepine 200 MG TABLET PO (07:57)
[2024-01-05] MEDS: Furosemide 20 MG TABLET PO (07:57)
[2024-01-05] MEDS: Metoprolol Succinate ER 25 MG TAB.ER.24H PO (07:57)
[2024-01-05 11:23] LABS: Glucose, Whole Blood 207 mg/dL (60-115)
--- NOTE | 2024-01-05 11:46 | P.PNIM_ITS ---
Subjective Subjective Date of Service: 01/05/24 Interval History: seen and evaluated this morning alert and interactive significantly deconditioned no other events overnight Review of Systems Review of Systems: Yes all other systems are reviewed and are negative Physical Exam 2 Vital Signs: Vital Signs: Last Vital Signs Temp 97.1 F 01/05/24 07:18 Pulse 77 01/05/24 07:18 Resp 18 01/05/24 07:18 BP 112/69 01/05/24 07:18 Pulse Ox 93 01/05/24 07:18 O2 Del Method Room Air 01/05/24 07:18 O2 Flow Rate 2 01/03/24 07:35 Oxygen Flow Rate 3 01/01/24 01:14 BMI result Body Mass Index 34.8 Const: Other: Constitutional : Awake, interactive, not in distress Neck : Normal inspection, Supple Cardiovascular : RRR, no JVP, no lower extremity edema Respiratory : good bilateral air entry, no crackles, wheezes or rhonchi, on O2 supplement Gastrointestinal: soft, lax, Normal bowel sounds, Non tender, mildly distended , small amount ascites Skin : Warm, Dry Neurological : Alert & oriented x3, No focal deficit Objective Data Active Medications Albuterol Sulfate (Albuterol Sulfate 90 Mcg 8 Gm Inhaler) 2 puff INHALE Q6H PRN PRN Reason: shortness of breath or wheezing Albuterol/Ipratropium (Albuterol/Iprat 2.5/0.5mg 3 Ml Ampul.Neb) 3 ml INHALE Q4H PRN PRN Reason: Shortness of Breath/Wheezing Last Admin: 01/01/24 05:55 Dose: 3 ml Documented By: ARI Aspirin (Aspirin Enteric Coated 81 Mg Tablet.) 81 mg PO DAILY [facility] Last Admin: 01/05/24 07:56 Dose: 81 mg Documented By: MARI Atorvastatin Calcium (Atorvastatin Calcium 40 Mg Tablet) 40 mg PO DAILY [facility] Last Admin: 01/05/24 07:56 Dose: 40 mg Documented By: MARI Azithromycin (Azithromycin 250 Mg Tablet) 250 mg PO Q24H [facility] Last Admin: 01/05/24 07:57 Dose: 250 mg Documented By: MARI Carbamazepine (Carbamazepine 200 Mg Tablet) 200 mg PO BID [facility] Last Admin: 01/05/24 07:57 Dose: 200 mg Documented By: MARI Duloxetine HCl (Duloxetine Hcl 30 Mg Capsule.) 30 mg PO BID [facility] Last Admin: 01/05/24 07:56 Dose: 30 mg Documented By: MARI Folic Acid (Folic Acid 1 Mg Tablet) 1 mg PO DAILY [facility] Last Admin: 01/05/24 07:57 Dose: 1 mg Documented By: MARI Furosemide (Furosemide 20 Mg Tablet) 20 mg PO DAILY [facility]; Protocol Last Admin: 01/05/24 07:57 Dose: 20 mg Documented By: MARI Glucose (Glucose Gel 15 Gm Gel..Gram.) 15 gm PO Q15M PRN; Protocol PRN Reason: per Hypoglycemia Standing Ord. Dextrose (D10) 250 mls @ 750 mls/hr IV Q15M PRN; Protocol PRN Reason: per Hypoglycemia Standing Ord. Insulin Glargine (Insulin Glargine,Hum.Rec.Anlog 100 Unit/Ml 10 Ml Vial) 20 unit SUBCUT BEDTIME [facility] Last Admin: 01/04/24 20:29 Dose: 20 unit Documented By: JOHN Insulin Human Lispro (Insulin Lispro 100 Unit/Ml 3 Ml Vial) 0 unit SUBCUT QIDACHS [facility]; Protocol Last Admin: 01/05/24 07:49 Dose: Not Given Documented By: MARI Non-Admin Reason: No Insulin Coverage Lactulose (Lactulose 20 Gm/30 Ml Solution) 20 gm PO BID [facility] Last Admin: 01/05/24 07:52 Dose: Not Given Documented By: MARI Non-Admin Reason: Patient Refused Loperamide HCl (Loperamide Hcl 2 Mg Capsule) 2 mg PO Q6H PRN PRN Reason: Diarrhea Last Admin: 01/04/24 12:32 Dose: 2 mg Documented By: NISHANT [facility] Last Admin: 01/05/24 07:56 Dose: 400 mg Documented By: MARI Metoprolol Succinate (Metoprolol Succinate Er 25 Mg Tab.Er.24h) 25 mg PO BID [facility]; Protocol Last Admin: 01/05/24 07:57 Dose: 25 mg Documented By: MARI Multivitamins/Vitamin C (Multivitamin Tablet) 1 tab PO DAILY [facility] Last Admin: 01/05/24 07:56 Dose: 1 tab Documented By: MARI Oxycodone HCl (Oxycodone Hcl Immed Release 5 Mg Tablet) 5 mg PO DAILY PRN PRN Reason: Pain (Scale Score 4-6) Last Admin: 01/05/24 07:56 Dose: 5 mg Documented By: MARI Pharmacy Consult (Consult Rx Etoh Phenob Im/Po) 1 each MISCELLANE ONCE PRN; Protocol PRN Reason: Consult order Phenobarbital (Phenobarbital 30 Mg Tablet) 30 mg PO DAILY [facility] Stop: 01/06/24 09:01 Last Admin: 01/05/24 07:56 Dose: 30 mg Documented By: MARI Prednisone (Prednisone 20 Mg Tablet) 40 mg PO DAILY [facility] Last Admin: 01/05/24 07:57 Dose: 40 mg Documented By: MARI Pregabalin (Pregabalin 200 Mg Capsule) 200 mg PO TID [facility] Last Admin: 01/05/24 07:57 Dose: 200 mg Documented By: MARI Rifaximin (Rifaximin 550 Mg Tablet) 550 mg PO BID [facility] Last Admin: 01/05/24 07:57 Dose: 550 mg Documented By: MARI Sodium Chloride (0.9 % Sodium Chloride Flush 3 Ml Syringe) 3 ml IVFLUSH QSHIFT [facility] Last Admin: 01/05/24 07:55 Dose: 3 ml Documented By: MARI Spironolactone (Spironolactone 25 Mg Tablet) 50 mg PO DAILY [facility]; Protocol Last Admin: 01/05/24 07:57 Dose: 50 mg Documented By: MARI Thiamine HCl (Thiamine Hcl 100 Mg Tablet) 100 mg PO DAILY [facility] Last Admin: 01/05/24 07:56 Dose: 100 mg Documented By: MARI Labs 01/03/24 06:27 01/05/24 05:04 Labs: Laboratory Results - last 24 hr 01/04/24 01/04/24 01/05/24 16:02 19:33 05:04 Hold Purple Top SEE NOTE Anion Gap 10 L Estim Creat Clear Calc 158.9 Estimated GFR > 60 POC Glucose 337 H 333 H Random Glucose 100 Calcium 8.3 L D 01/05/24 01/05/24 07:21 11:14 Hold Purple Top Anion Gap Estim Creat Clear Calc Estimated GFR POC Glucose 149 H 207 H Random Glucose Calcium Assessment and Plan (1) Acute hepatic encephalopathy: Status: Acute (2) Acute exacerbation of chronic obstructive pulmonary disease (COPD): Status: Acute (3) Hypomagnesemia: Status: Acute (4) Physical deconditioning: Status: Acute Plan Tom Weber is a 58 y/o man with PMHx significant for alcoholic liver + HCV cirrhosis admitted with: # Acute respiratory failure 2/2 acute COPD exacerbation, sleep apnea Continue supplemental oxygen via nasal cannula to keep O2 sats >90%. Bronchodilator therapy. change azithromycin. to PO change IV steroids to PO Wean O2 down as tolerated physical therapy rec STR # Acute Hypokalemia replacement given, follow BMP # PHysical deconditioning PT rec STR, pending placement # Acute Hepatic encephalopathy. Improved , continue lactulose and rifaximin. # chronic Ascites 2/2 liver cirrhosis no abdominal pain or evidence of acute infection. US showing small amount, hold on Paracentesis Continue spironolactone and Lasix. # Hx of Alcohol abuse with withdrawal CIWA protocol. Continue thiamine. Folic acid and multivitamins. phenobarbital protocoal as patient high risk for seizures. Additional medicine consult. # Acute Hypomagnesemia. Repleted with IV and PO. Continue to monitor magnesium level. # Acute Lactic acidosis secondary to alcohol abuse. Resolved. # Type 2 diabetes mellitus. Insulin sliding scale. # Elevated LFTs secondary to alcohol abuse. Continue to monitor. # Thrombocytopenia secondary to alcoholic liver disease. At baseline. Continue to monitor. # Hyperlipidemia. Continue statin. # Seizure disorder. Continue carbamazepine. # Tobacco dependence. Tobacco cessation education. # CAD/TIA. Continue aspirin and statin. # HEpEF. Currently compensated. Code status: Full DVT prophylaxis: SCDs -thrombocytopenia Patient will need hospitalization overnight for alcohol withdrawal treatment and STR placement as he is high risk for falling Quality Stroke Does the patient have a stroke diagnosis?: No VTE Prior VTE?: No VTE Risk Level:: Medical - moderate - high VTE Device Contraindication: N/A - Device Ordered VTE Drug Contraindication: Treatment Not Indicated
[2024-01-05 11:55] VITALS: BP 112/69; PULSE 77; O2SAT 93
[2024-01-05] MEDS: Insulin Lispro 100 UNIT/ML 3 ML VIAL SUBCUT ×2 (12:00→16:50)
--- NOTE | 2024-01-05 14:30 | MHC.CM.PN ---
PT GOING TO [facility] 6:30
--- NOTE | 2024-01-05 15:50 | PM.DS ---
DS: Providers Provider Date of Service: 01/05/24 Date of admission: 01/01/24 05:00 Date of discharge: 01/05/24 Primary care physician: MONTY Gómez Consults: 01/01/24 05:55 Addiction Medicine Routine Consulting Provider: Addiction Covering Reason for consultation: Alcohol abuse Has provider been notified: No 01/01/24 14:30 Consult to Wound Care Routine Reason for consultation: new admission, scattered bruising, open area to inside of L buttock DS: Diagnosis Discharge Diagnosis (1) Acute hepatic encephalopathy: Status: Acute (2) Acute exacerbation of chronic obstructive pulmonary disease (COPD): Status: Acute (3) Hypomagnesemia: Status: Acute (4) Physical deconditioning: Status: Acute DS: Summary Hospital Course Hospital Course: Admission note HPI Tom Weber is a 58 years old man with past medical history significant for alcohol abuse, alcoholic liver + HCV cirrhosis, COPD -no home O2, HFpEF, hypertension, seizure disorder, type 2 diabetes mellitus, TIA, CAD s/p cardiac stenting presents to the emergency department complaining of generalized weakness over the last several days. He is vague historian and was somnolent. However, he was able to answer some questions. He denied any headache, nausea, vomiting or diarrhea. He denied abdominal pain. His abdomen has been distended but he is not sure for how long. Did not report any fevers or chills. Did not report any acute urinary symptoms. He continues to abuse alcohol and drinks about 7 nips of hard liquor daily, last use was last night. He also smoked tobacco but denies illicit drug use. Pressure review, most recent hospitalization was August of this year due to acute hypoxic respiratory failure. In the ED, he was found to have oxygen saturation 88% on room air and currently requiring 2 liters/minutes supplemental oxygen via nasal cannula. There is no tachycardia, fever or tachypnea. Blood workup is remarkable for hypomagnesemia and lactic acidosis that resolved with IV fluids and albumin. There is no lactic acidosis. LFTs are elevated. ED tx: Magnesium 2 mg IV, thiamine 200 mg IV, albumin 100 mL, thiamine cefepime 2 g IV, NS 500 mL bolus, Solu-Medrol 60 mg IV, phenobarbital 192 mg IM Hospital course # Acute respiratory failure secondary to acute COPD exacerbation, sleep apnea, Treated with Bronchodilator therapy. steroids and Azithromycin. weaned down to RA. # Acute Hypokalemia, replacement given and corrected # PHysical deconditioning, PT recommended STR,placement # Acute Hepatic encephalopathy. Improved with Lactulose and Rifaximin. To continue Lactulose on discharge bid. hold for diarrhea. goal 1-2 BM daily. # chronic Ascites secondary to liver cirrhosis, Continue spironolactone and Lasix. # Hx of Alcohol abuse with withdrawal, Finished phenobarbital protocol. Continue Folic acid and multivitamins. Addiction medicine consulted. advised to quit drinking alcohol # Acute Hypomagnesemia. Repleted with IV and PO. Continue oral supplement. # Acute Lactic acidosis secondary to alcohol abuse. Resolved. Discharge plan Start Lactulose 20 mg twice daily, hold for diarrhea Hold Lisinopril for low blood pressure, monitor the need to restart Take magnesium supplement Avoid drinking alcohol Time Attestation Discharge Coordination Time (in mins): 43 Quality: Safe Use of Opioids Does Pt have an Active Cancer Diagnosis on the Problem List?: No Quality: Stroke Does the patient have a stroke diagnosis?: No Physical Exam Vital Signs: Vital Signs: Last Vital Signs Temp 97.1 F 01/05/24 07:18 Pulse 77 01/05/24 11:55 Resp 18 01/05/24 07:18 BP 112/69 01/05/24 11:55 Pulse Ox 93 01/05/24 11:55 O2 Del Method Room Air 01/05/24 07:18 O2 Flow Rate 2 01/03/24 07:35 Oxygen Flow Rate 3 01/01/24 01:14 BMI result Body Mass Index 34.8 Const: Other: Constitutional : Awake, interactive, not in distress Neck : Normal inspection, Supple Cardiovascular : RRR, no JVP, no lower extremity edema Respiratory : good bilateral air entry, no crackles, wheezes or rhonchi, on O2 supplement Gastrointestinal: soft, lax, Normal bowel sounds, Non tender, mildly distended , mo significant ascites Skin : Warm, Dry Neurological : Alert & oriented x3, No focal deficit DS: Data Data Completed and Pending Completed studies during hospitalization [Text1]: Procedures Bypass Trachea to Cutaneous with Tracheostomy Device, Percutaneous Approach (05/15/22) Change Tracheostomy Device in Trachea, External Approach (05/15/22) Detoxification Services for Substance Abuse Treatment (09/10/23) Drainage of Peritoneal Cavity, Percutaneous Approach (09/10/23) Insertion of Endotracheal Airway into Trachea, Via Natural or Artificial Opening (12/04/22) Insertion of Infusion Device into Superior Vena Cava, Percutaneous Approach (07/06/23) Introduction of Vasopressor into Peripheral Vein, Percutaneous Approach (07/06/23) Respiratory Ventilation, 24-96 Consecutive Hours (12/04/22) Respiratory Ventilation, Greater than 96 Consecutive Hours (05/15/22) Transfusion of Nonautologous Frozen Plasma into Peripheral Vein, Percutaneous Approach (12/04/22) Ultrasonography of Superior Vena Cava, Guidance (07/06/23) Labs on day of discharge: Laboratory Results - last 24 hr 01/04/24 01/04/24 01/05/24 16:02 19:33 05:04 Hold Purple Top SEE NOTE Sodium 143 Potassium 3.8 D Chloride 104 Carbon Dioxide 33 H Anion Gap 10 L BUN 10 Creatinine 0.67 Estim Creat Clear Calc 158.9 Estimated GFR > 60 POC Glucose 337 H 333 H Random Glucose 100 Calcium 8.3 L D 01/05/24 01/05/24 07:21 11:14 Hold Purple Top Sodium Potassium Chloride Carbon Dioxide Anion Gap BUN Creatinine Estim Creat Clear Calc Estimated GFR POC Glucose 149 H 207 H Random Glucose Calcium Preliminary micro results at discharge 01/01/24 01:51 Blood Culture - Preliminary Blood - Venous No growth after 48 hours. 01/01/24 01:39 Blood Culture - Preliminary Blood - Venous No growth after 48 hours. Imaging Chest x-ray: Radiologist's impression: ITS Impressions Chest X-Ray 01/01/24 01:21 IMPRESSION: *No acute cardiopulmonary abnormalities noted. *Chronic elevation of the right hemidiaphragm which may be secondary to diaphragmatic paresis. Electronically signed by: Ti Hooper MD 01/01/2024 02:59 AM EDT Venous Duplex 01/01/24 17:02 IMPRESSION: No evidence of deep venous thrombosis involving the bilateral lower extremities. Bilateral mild to moderate calf edema. Electronically signed by: Flavio Hardy MD 01/01/2024 07:01 PM EDT Abdomen Ultrasound 01/02/24 10:00 IMPRESSION: Findings as above. Electronically signed by: Olvin Chau MD 01/02/2024 11:30 AM EDT Discharge Plan Discharge Anticipated Discharge Date/Time: 01/05/24 15:25 Patient Disposition: Xfer SNF Discharge Diagnosis: Hepatic encephalopathy Physical deconditioning Alcohol abuse Referrals: MARGY CORTES [Other] - 1 Week Lauri Gonzalez FNP-BC [Primary Care Provider] - 1 Week Discharge Medications: New magnesium oxide 400 mg (241.3 mg magnesium) Tablet 400 mg PO DAILY Qty: 90 0RF lactulose 20 gram/30 mL Solution 20 g PO BID 30 Days Qty: 1800 0RF Continued (DME) lancets [BD Ultra-Fine II Lancets] 30 gauge misc See Rx Instructions .Route Qty: 100 0RF Rx Instructions: TID (DME) blood-glucose meter [Accu-Chek Guide Me Glucose Mtr] Misc See Rx Instructions .Route Qty: 1 0RF Rx Instructions: TID testing folic acid 1 mg tablet 1 mg PO DAILY Qty: 90 1RF atorvastatin 40 mg tablet 40 mg PO DAILY Qty: 90 3RF (DME) Accu-Chek Guide test strips Strip See Rx Instructions .Route Qty: 300 1RF Rx Instructions: tid testing loperamide 2 mg capsule 2 mg PO Q6H PRN (Reason: Diarrhea) Qty: 30 0RF (DME) pen needle, diabetic [BD Ultra-Fine Mini Pen Needle] 31 gauge x 3/16 needle See Rx Instructions .Route Qty: 100 1RF Rx Instructions: Use to inject insulin once per day multivitamin Tablet 1 tab PO DAILY duloxetine 30 mg capsule,delayed release(DR/EC) 1 cap PO BID aspirin 81 mg Tablet,Delayed Release (Dr/Ec) 81 mg PO DAILY carbamazepine 200 mg tablet 200 mg PO BID pregabalin 200 mg Capsule 200 mg PO TID albuterol sulfate 90 mcg/actuation HFA aerosol inhaler 2 puff inhalation Q6H PRN (Reason: shortness of breath or wheezing) spironolactone 25 mg Tablet 50 mg PO DAILY Qty: 180 0RF Protocol: Hold for SBP< HOLD for SBP < : 90 furosemide 20 mg Tablet 20 mg PO DAILY Qty: 90 0RF Protocol: Hold for SBP< HOLD for SBP < : 90 nystatin 100,000 unit/gram powder 1 appl topical TID PRN (Reason: Fungal Infection) insulin glargine [Lantus Solostar U-100 Insulin] 100 unit/mL (3 mL) insulin pen 30 unit subcut BEDTIME metoprolol succinate 50 mg tablet extended release 24 hr 50 mg PO BID oxycodone 5 mg Tablet 5 mg PO DAILY PRN (Reason: Pain (Scale Score 4-6)) Qty: 10 0RF Held lisinopril 10 mg Tablet 10 mg PO DAILY Hold Instructions: Monitor BP for 1 week to decide if needed or not Discharge Orders: Discharge Order (Routine); Ordered 01/05/24 Ordered By: Antoine Rodriguez Diet: Low salt diet Activity on Discharge: As tolerated Stand Alone Forms: Patient Portal Discharge page Print Language: Armenian Care Plan Goals: Start Lactulose 20 mg twice daily, hold for diarrhea Hold Lisinopril for low blood pressure, monitor the need to restart Take magnesium supplement Avoid drinking alcohol Health Concerns: Read below Plan of Treatment: Read below Assessment: Read below Patient Instructions: Acute Liver Failure (DC)
[2024-01-05 16:00] VITALS: BP 125/78; PULSE 65; RESP 18; TEMP 36.4; O2SAT 96
[2024-01-05 16:37] LABS: Glucose, Whole Blood 165 mg/dL (60-115)
== END 2024-01-05 19:52 | disposition skilled nursing facility (03) | DRG 190 ==
LOC: HO.ED 03:18 → HO.EDOVER 05:10 → HO.S3 12:06
PROVIDERS: Admitting Provider Internal Medicine; Emergency Provider Emergency Medicine; PCP Nurse Practitioner Family; Visit Provider Student in an Organized Health Care Education/Training Program
DX: J44.1 Chronic obstructive pulmonary disease with (acute) exacerbation (principal); J96.01 Acute respiratory failure with hypoxia; E87.21 Acute metabolic acidosis; I50.32 Chronic diastolic (congestive) heart failure; K70.31 Alcoholic cirrhosis of liver with ascites; I25.10 Atherosclerotic heart disease of native coronary artery without angina pectoris; Z95.5 Presence of coronary angioplasty implant and graft; E83.42 Hypomagnesemia; E11.9 Type 2 diabetes mellitus without complications; F17.210 Nicotine dependence, cigarettes, uncomplicated; I11.0 Hypertensive heart disease with heart failure; Z71.6 Tobacco abuse counseling; E78.5 Hyperlipidemia, unspecified; F10.10 Alcohol abuse, uncomplicated; D69.59 Other secondary thrombocytopenia; K76.82 Hepatic encephalopathy; G40.909 Epilepsy, unspecified, not intractable, without status epilepticus; E87.6 Hypokalemia; Z20.822 Contact with and (suspected) exposure to COVID-19; Z79.4 Long term (current) use of insulin; Z79.82 Long term (current) use of aspirin; Z79.899 Other long term (current) drug therapy
CPT/HCPCS: 0241U; 36415; 71045; 76705; 80048; 80053; 80076; 80307; 81003; 82140; 82550; 82803; 82947; 83605; 83690; 83735; 83880; 84145; 84484; 85025; 85027; 85610; 85730; 86140; 86850; 86900; 86901; 87040; 93005; 93970; 94640; 97110; 97162; 97530; 99282; J0456; J0692; J1940; J2560; J2919; J3411; J3475; P9047

== ENCOUNTER → 2024-01-01 05:00 | Outpatient (BNV) | payer MEDICARE, SELFPAY | PROVIDERS: Admitting Provider Internal Medicine; Emergency Provider Emergency Medicine; Visit Provider Internal Medicine | DX: J44.1 Chronic obstructive pulmonary disease with (acute) exacerbation (principal); E83.42 Hypomagnesemia; R53.1 Weakness; F10.20 Alcohol dependence, uncomplicated | CPT/HCPCS: 99223; 99232; 99239; 99499 ==

== ENCOUNTER 2024-02-09 14:16 | Outpatient (AMB) | payer MEDICARE, SELFPAY ==
--- NOTE | 2024-02-09 14:16 | MHC.PC.OV ---
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 Required: No Allergies pineapple Allergy (Severe, Verified 02/09/24 14:17) Anaphylaxis cyclobenzaprine [From FLEXERIL] Allergy (Unknown, Verified 02/09/24 14:17) RASH penicillin V Allergy (Unknown, Verified 02/09/24 14:17) anaphylaxis FADIA Inhibitors Adverse Reaction (Severe, Verified 02/09/24 14:17) Angioedema Tobacco use date assessed: 02/09/24 Dental Screening Dental Screen Date: 02/09/24 Did you have a dental visit in the last 12 months?: Yes Did you have a dental problem in the last 6 months where you did not have access to dental care?: No Was dental information given to patient?: Patient has dentist HPI HDF ~ Post hospital discharge FU HPI Details Pt was seen in the ER on 12/31 c/o weakness. Pt's oxygen saturation was 88% on room air. He was started on 2L of oxygen. Labs showed hypomagnesemia and lactic acidosis which resolved with IV fluids, and magnesium. Pt was also given thiamine, thiamine cefepime, solu-medrol, and phenobarbital. Pt's LFTs were elevated, hx of ETOH abuse. Pt was admitted for acute respiratory failure secondary to acute COPD exacerbation and sleep apnea. He was treated with bronchodilator therapy, steroids, and azithromycin. Pt was weaned down to room air. Hypokalemia noted, given replacement with resolution. Pt was seen by PT who recommended short-term rehab. Pt was noted to have acute hepatic encephalopathy which improved with lactulose and rifaximin. Pt was continued on lactulose at d/c. He was also d/c on magnesium. His lisinopril was held, though pt has still been taking this. Pt reports doing better today. He is being seen by OT and PT (at home). Pt's blood pressure is being monitored by OT and has been stable. He reports that the wound on his left buttock is completely healed. Pt reports that the swelling of his BLE decreases with elevation. He reports that he is still drinking vodka and beer, he is aware of the dangers of this. Pt continues to smoke, educated on the dangers of this. Will order labs. Denies chest pain, shortness of breath, and dizziness. Spoke to pt's as well (on speaker phone throughout entire televisit) [facility] Medical History Acute hepatic encephalopathy Alcohol use disorder, severe, dependence Thrombocytopenia Pneumonia COPD (chronic obstructive pulmonary disease) Diabetes Nicotine dependence, cigarettes, uncomplicated Tracheostomy care Respiratory failure Diastolic CHF Seizure disorder History of TIA (transient ischemic attack) History of hepatitis C CAD (coronary artery disease) HTN (hypertension) Insulin dependent type 2 diabetes mellitus Diabetic neuropathy Restrictive airway disease KD (obstructive sleep apnea) ETOH abuse Morbid obesity Transaminitis Fatty liver History of colon polyps Obesity Microalbuminuria Foot ulcer, left Fracture of right tibia and fibula Metatarsal bone fracture Surgical History History of surgery on lower extremity (~2019) History of lumbar spinal fusion History of colonoscopy (~2018) History of hernia repair History of cardiac catheterization (~2018) Family History Father CVD (cardiovascular disease) Colon cancer Mother No problems noted. Brother Liver cancer Paternal Aunt Colon cancer Social History Household Members: Unknown / Unable to assess Household Members Other:: Housing: House Do you presently have visiting nurse or other home services: Yes Unable to assess alcohol history related to: Unable to respond Alcohol intake: former Patient Tobacco Use Status: Never used Tobacco Tobacco use type: Cigarette Years Smoked: onset 18yo, 1-2ppd x 37yrsm now 1/2ppd - 48pyh Second Hand Smoke Exposure: Yes Substance Use Type: Marijuana Advance Directives Date on File: 03/20/22 service: No Current occupational status: disabled Current occupation: right handed Cognitive needs: No Hearing needs: No Vision needs: No Questionnaire PHQ-9 Over the last 2 weeks, how often have you been bothered by any of the following problems? 1. Little interest or pleasure in doing things: not at all 2. Feeling down, depressed, or hopeless: several days 3. Trouble falling or staying asleep, or sleeping too much: nearly every day 4. Feeling tired or having little energy: more than half the days 5. Poor appetite or overeating: nearly every day 6. Feeling bad about yourself - or that you are a failure or have let yourself or your family down: several days 7. Trouble concentrating on things, such as reading the newspaper or watching television: nearly every day 8. Moving or speaking so slowly that other people could have noticed. Or the opposite - being so fidgety or restless that you have been moving around a lot more than usual: several days 9. Thoughts that you would be better off or of hurting yourself in some way: not at all Total score: 14 Depression Screening Interpretation: Positive (denies any si or hi) Depression Screening Follow-up: Existing condition Depression Screening Done: Yes 84700 - PHQ-9 Billing: Yes Source: Developed by Drs. Pilo Burton, Britni Romeo, Tay Rogers and colleagues, with an educational cathy from [employer]. Thrive Questionnaire Date Thrive assessed: 01/02/24 AUDIT C Alcohol Use Questionnaire (AUDIT-C) 1. How often do you have a drink containing alcohol?: 4 or more times a week 2. How many drinks containing alcohol do you have on a typical day when you are drinking?: 7 to 9 3. How often do you have six or more drinks on one occasion?: Daily or almost daily Total Score: 11 Score Reviewed/Action Taken: Yes YESSENIA-7 AMB Questionnaire YESSENIA-7 Date YESSENIA - 7 assessed: 02/09/24 Feeling nervous, anxious, or on edge: 3 = Nearly every day Not being able to stop or control worryin = Nearly every day Worrying too much about different things: 1 = Several days Trouble relaxin = Nearly every day Being so restless that it is hard to sit still: 1 = Several days Becoming easily annoyed or irritable: 3 = Nearly every day Feeling afraid as if something awful might happen: 3 = Nearly every day Total YESSENIA-7 score (0-4 normal; 5-9 mild; 10-14 moderate; 15-21 severe): 17 Source: Developed by Drs. Pilo Burton, Britni Romeo, Tay Rogers and colleagues, with an educational cathy from [employer]. YESSENIA-7 Assessment Billing YESSENIA-7 Assessment Tool: YESSENIA-7 Assessment 89369 Review of Systems Const Reports as per HPI Physical exam (Primary Care) Tobacco/Smoking Status: Tobacco use Status Tobacco use date assessed 02/09/24 02/09/24 14:23 Patient Tobacco Use Status Never used Tobacco 02/09/24 14:23 Tobacco use type Cigarette 02/09/24 14:23 PHQ-9: PHQ-9 Score PHQ-9: Total score 14 02/09/24 15:05 Depression Screening Interpretation: Positive (denies any si or hi) Depression Screening Follow-up: Existing condition Thrive Assessment: Date of Thrive Assessment Date Thrive assessed 01/02/24 02/09/24 14:23 Const General: cooperative Orientation/consciousness: patient oriented x3 Neuro General: patient oriented x3 Psych Mental Status: mental status grossly normal Speech and movement: Clear speech present Affect: normal affect Attitude: cooperative Thought process: Normal thought process present Thought content: Normal thought content present Insight: Good insight present (Psych) Judgement: Good judgement present (Psych) Telehealth Telehealth Telehealth Platform: Telephone Location of provider rendering services: practice address Location of patient: address on file Patient Identification confirmed using: Name, : Yes Telehealth method: voice only Patient verbally consented to treatment: Yes Patient verbally consented to billing insurance company: Yes Patient informed of any privacy concerns related to visit: Yes Minutes spent on Phone/Video with Pt.: 10 Coding Level of Care Code Tele Est Pt Level 3 (93180) Diagnoses ETOH abuse F10.10 Cirrhosis of liver with ascites, unspecified hepatic cirrhosis type K74.60; R18.8 Ascites presence: with ascites Hepatic cirrhosis type: unspecified hepatic cirrhosis Acute hepatic encephalopathy K76.82 Hypomagnesemia E83.42 Additional Codes YESSENIA-7 Assessment Billing - YESSENIA-7 Assessment Tool: YESSENIA-7 Assessment 13638 ([id number]) PHQ-9 - 32985 - PHQ-9 Billing: Yes ([id number]) Assessment & Plan Assessment & Plan (1) ETOH abuse: Code(s): F10.10 - Alcohol abuse, uncomplicated Category: Social Hx (2) Liver cirrhosis: Code(s): K74.60 - Unspecified cirrhosis of liver Category: Medical Qualifiers: Ascites presence: with ascites Hepatic cirrhosis type: unspecified hepatic cirrhosis Qualified Code(s): K74.60 - Unspecified cirrhosis of liver; R18.8 - Other ascites Plan: pt continuously warned of dangers of his ETOH use. (3) Acute hepatic encephalopathy: Code(s): K76.82 - Hepatic encephalopathy Category: Medical Plan: warned of dangers of continued ETOH use (4) Hypomagnesemia: Code(s): E83.42 - Hypomagnesemia Category: Medical Plan: will check levels, encouraged pt to get labs drawn Plan The patient agreed to the use of a medical grade shoemaker for this encounter. Scribed for MARIA INES Cisneros- by Ashley Tejada medical grade shoemaker, on 02/09/2024 at 14:55 EST. Orders: Orders Lactic Acid Today F10.10 - Alcohol abuse, uncomplicated, K74.60 - Unspecified cirrhosis of liver, R18.8 - Other ascites Complete Blood Count Auto Diff Today F10.10 - Alcohol abuse, uncomplicated, K74.60 - Unspecified cirrhosis of liver, R18.8 - Other ascites Comprehensive Met. Panel Today F10.10 - Alcohol abuse, uncomplicated, K74.60 - Unspecified cirrhosis of liver, R18.8 - Other ascites UA CC w/rflx Micro + Cult Today F10.10 - Alcohol abuse, uncomplicated, K74.60 - Unspecified cirrhosis of liver, R18.8 - Other ascites Vitamin B12 and Folate Today F10.10 - Alcohol abuse, uncomplicated, K74.60 - Unspecified cirrhosis of liver, R18.8 - Other ascites B Type Natriuretic Peptide Today F10.10 - Alcohol abuse, uncomplicated, K74.60 - Unspecified cirrhosis of liver, R18.8 - Other ascites Ammonia Today F10.10 - Alcohol abuse, uncomplicated, K76.82 - Hepatic encephalopathy TSH reflex Free T4 Today F10.10 - Alcohol abuse, uncomplicated, K74.60 - Unspecified cirrhosis of liver, R18.8 - Other ascites Magnesium Today F10.10 - Alcohol abuse, uncomplicated, K74.60 - Unspecified cirrhosis of liver, R18.8 - Other ascites
== END 2024-02-09 16:16 | disposition home or self-care (01) ==
LOC: HO.HMCC 14:16
PROVIDERS: PCP Nurse Practitioner Family; Visit Provider Nurse Practitioner Family
DX: K74.60 Unspecified cirrhosis of liver (principal); K76.82 Hepatic encephalopathy; F10.10 Alcohol abuse, uncomplicated; R18.8 Other ascites; E83.42 Hypomagnesemia

== ENCOUNTER → 2024-02-09 14:16 | Outpatient (BNVA) | payer MEDICARE, SELFPAY | PROVIDERS: PCP Nurse Practitioner Family; Visit Provider Nurse Practitioner Family | DX: F10.10 Alcohol abuse, uncomplicated (principal); K74.60 Unspecified cirrhosis of liver; R18.8 Other ascites; K76.82 Hepatic encephalopathy; E83.42 Hypomagnesemia | CPT/HCPCS: 96127 ==